=== PATIENT | female | born 1990 | race Caucasian/White ===

== ENCOUNTER 2023-06-19 19:19 | Emergency (ER) | payer MEDICAID, SELFPAY ==
[2023-06-19 19:28] VITALS: BP 120/84; PULSE 80; RESP 16; TEMP 36.8; O2SAT 98; BMI 30.8
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
[2023-06-19] MEDS: IBUPROFEN 400 MG TABLET 800 MG PO (20:17)
== END 2023-06-19 20:35 | disposition home or self-care (01) ==
PROVIDERS: Emergency Provider Emergency Medicine; PCP Family Medicine
DX: S39.012A Strain of muscle, fascia and tendon of lower back, initial encounter (principal); S39.011A Strain of muscle, fascia and tendon of abdomen, initial encounter; V43.52XA Car driver injured in collision with other type car in traffic accident, initial encounter; Z87.891 Personal history of nicotine dependence
CPT/HCPCS: 72100; 99283

== ENCOUNTER 2024-02-05 16:46 | Emergency (ER) | payer MEDICAID, SELFPAY ==
[2024-02-05 16:52] VITALS: BP 124/86; PULSE 82; TEMP 36.9; O2SAT 98; BMI 33.0
--- OUTSIDE RECORDS SUMMARY | 2024-02-05 16:52 | XMS_ITS | CCD ---
Author Organization [facility] Care Team Providers Care Substance Abuse Clinician Name Role Phone Gabino Prieto Primary Care Provider Unavaila willy GONZALES, DR PAIZ Admitting Unavailable GONZÁLEZ, DR PAIZ Attending Unavailable MAGDALENO, DR Stoney JAY Primary Care Unavailable GONZÁLEZ, DR PAIZ Consulting Unavailable AGUBOSISHILA Whitehead Consulting Unavailable SERENE MARTINO Consulting Unavailable ARTIE LI Consulting Unavailable MELISSA JONES Attending Unavailable MELISSA JONES Admitting Unavailable MAGDALENO, DR Stoney JAY Primary Care Unavailable ALEXIS, DR MALICK Rain Consulting Unavailable MELISSA JONES Consulting Unavailable GONZÁLEZ, DR PAIZ Consulting Unavailable GONZÁLEZ, DR PAIZ Admitting Unavailable KAHSAN, DR Stoney JAY Primary Care Unavailable GONZÁLEZ, DR PAIZ Attending Unavailable GONZÁLEZ, DR PAIZ Admitting Unavailable GONZÁLEZ, DR PAIZ Attending Unavailable KASHAN, DR Stoney JAY Primary Care Unavailable GONZÁLEZ, DR PAIZ Consulting Unavailable ALEXIS, DR MALICK Rain Consulting Unavailable GONZÁLEZ, DR PAIZ Admitting Unavailable GONZÁLEZ, DR PAIZ Attending Unavailable MAGDALENO, DR Stoney JAY Primary Care Unavailable GONZÁLEZ, DR PAIZ Consulting Unavailable ALEXIS, DR MALICK Rain Consulting Unavailable EFREN, DR BLACK Consulting Unavailable NOEMI MORGAN Attending Unavailable NOEMI MORGAN Admitting Unavailable MAGDALENO, DR Stoney JAY Primary Care Unavailable ISHMAEL BAINS Consulting Unavailable GONZÁLEZ, DR PAIZ Attending Unavailable GONZÁLEZ, DR PAIZ Admitting Unavailable CORTNEY MAZARIEGOS Consulting Unavailable MAGDALENO, DR Stoney JAY Primary Care Unavailable GONZÁLEZ, DR PAIZ Admitting Unavailable GONZÁLEZ, DR PAIZ Attending Unavailable MAGDALENO, DR Stoney JAY Primary Care Unavailable MAGDALENO, DR Stoney JAY Referring Unavailable GONZÁLEZ, DR PAIZ Consulting Unavailable TUNG SHIELDS Attending Unavailable Unavailable Unavailable Unavailable Allergies Allergy Classification Reported Allergen(s) Allergy Type Date of Onset Reaction(s) Facility (1 source) levoFLOXacin Drug Allergy [facility] (1 source) levoFLOXacin Drug Allergy 11-10-2012 [facility] Repository Medications Current Medications Medication Drug Class(es) Dates Sig (Normalized) Sig (Original) acetaminophen 325 mg / HYDROcodone bitartrate 5 mg oral tablet (2 sources) Opioid Agonist Start: 02-11-2019 End: 02-02-2024 take 1 tablet by mouth every four to six hours Hydrocodone-Acetam inophen Active 1 TAB Oral EVERY 4-6 HOURS 7 February 11, 2019 2:49pm naproxen 500 mg oral tablet (2 sources) Nonsteroidal Anti-inflammatory Drug Start: 02-11-2019 End: 02-02-2024 take 500 mg by mouth every twelve hours at mealtime Naproxen Active 500 MG Oral Q12H February 11, 2019 2:49pm administer with food or milk Nirmatrelvir-Ritonav ir (Paxlovid) 300 mg (150 mg x 2)-100 mg tablets,dose pack (2 sources) Start: 02-02-2024 Nirmatrelvir-Riton avir (Paxlovid) 300 mg (150 mg x 2)-100 mg tablets,dose pack Active 0 PO .COMPLEX February 02, 2024 12:00am take TWO 150 mg tablets of nirmatrelvir with ONE 100 mg tablet of ritonavir twice daily for 5 days PO Start: 02-02-2024 End: 02-02-2024 Nirmatrelvir-Ritonavir (Paxl ovid) 300 mg (150 mg x 2)-100 mg tablets,dose pack Discontinued 0 PO .COMPLEX February 02, 2024 12:00am February 02, 2024 6:58pm take TWO 150 mg tablets of nirmatrelvir with ONE 100 mg tablet of ritonavir twice daily for 5 days PO ondansetron 4 mg disintegrating oral tablet (2 sources) Serotonin-3 Receptor Antagonist Start: 02-11-2019 End: 02-02-2024 Ondansetron Active 4 MG Oral every 6 to 8 hours February 11, 2019 2:49pm tamsulosin hydrochloride 0.4 mg oral capsule (2 sources) alpha-Adrenergic Porsha Start: 02-11-2019 End: 02-02-2024 take 0.4 mg by mouth once daily Tamsulosin Active 0.4 MG Oral Daily February 11, 2019 2:49pm Problems Active Problems Problem Classification Problem Date Documented Date Episodic/Chronic Abdominal pain (2 sources) Pelvic and perineal pain; Translations: [Unspecified abdominal pain] Onset: 08-25-2021 Episodic Calculus of urinary tract (3 sources) Ureteric stone; Translations: [Kidney stone] 02-02-2024 Episodic Immunizations and screening for infectious disease (2 sources) Encounter for screening for human papillomavirus (HPV); Translations: [Contact with or exposure to other viral diseases] Onset: 08-28-2021 02-02-2024 Episodic Menstrual disorders (5 sources) Excessive and frequent menstruation with regular cycle; Translations: [EXCESS FREQ MENSTRUATION W/REG CYCL] Onset: 10-07-2021 Chronic Other liver diseases (5 sources) Liver disease, unspecified; Translations: [LIVER DISEASE UNSPECIFIED] Onset: 08-30-2021 Chronic Other upper respiratory infections (3 sources) Pharyngitis; Translations: [Acute pharyngitis, unspecified] 05-05-2023 Episodic Unclassified (1 source) CONTACT W/AND (SUSP) EXPOS COVID-19; Translations: [CONTACT W/AND (SUSP) EXPOS COVID-19] Onset: 08-25-2021 Viral infection (2 sources) Disease caused by 2019-nCoV; Translations: [COVID-19] 02-02-2024 Episodic Past or Other Problems Problem Classification Problem Date Documented Date Episodic/Chronic Contraceptive and procreative management (1 source) Tubal ligation status; Translations: [TUBAL LIGATION STATUS] Onset: 10-14-2021 Episodic Nausea and vomiting (4 sources) Nausea with vomiting, unspecified; Translations: [NAUSEA WITH VOMITING UNSPECIFIED] Onset: 08-24-2021 Episodic Noninfectious gastroenteritis (1 source) Noninfective gastroenteritis and colitis, unspecified; Translations: [NONINFECTIVE GE AND COLITIS UNS] Onset: 08-25-2021 Episodic Other screening for suspected conditions (not mental disorders or infectious disease) (4 sources) Encounter for screening for malignant neoplasm of cervix; Translations: [ENC SCREENING MALIG NEOPLASM CERV] Onset: 08-25-2021 Episodic Residual codes; unclassified (1 source) Acquired absence of other specified parts of digestive tract; Translations: [ACQ ABSENCE OTH PART DIGESTV TRACT] Onset: 10-14-2021 Episodic Screening and history of mental health and substance abuse codes (1 source) Personal history of nicotine dependence; Translations: [PERSONAL HISTORY OF NICOTINE DEPEND] Onset: 10-14-2021 Episodic Results Test Name Value Interpretation Reference Range Facility No Panel InformationOrdered By: Hilaria Shell on 02-02-2024 Quick Strep (POC) [facility] CBC AUTO DIFFon 06-22-2022 BASO # 0.0 103/ul Normal 0.0-0.1 [facility] Comment on above: Performed By: #### C BC #### [facility] [address] [place] [address] Dr. Cain Mcwilliams Basophils/100 WBC (Bld) 0.4 % Normal 0.2-2.0 [facility] Comment on above: Performed By: #### C BC #### [facility] [address] [place] [address] Dr. Cain Mcwilliams EO # 0.1 103/ul Normal 0.0-0.7 [facility] Comment on above: Performed By: #### C BC #### [facility] [address] [place] [address] Dr. Cain Mcwilliams Eosinophils/100 WBC (Bld) 2.0 % Normal 0.9-7.0 [facility] Comment on above: Performed By: #### C BC #### [facility] [address] [place] [address] Dr. Cain Mcwilliams Erythrocyte distribution width (RBC) [Ratio] 12.8 % Normal 11.0-15.0 [facility] Comment on above: Performed By: #### C BC #### [facility] [address] [place] [address] Dr. Cain Mcwilliams Hematocrit (Bld) [Volume fraction] 40.6 % Normal 36.0-48.0 [facility] Comment on above: Performed By: #### C BC #### [facility] [address] [place] [address] Dr. Cain Mcwilliams Hemoglobin (Bld) [Mass/Vol] 14.1 g/dL Normal 12.0-16.0 [facility] Comment on above: Performed By: #### C BC #### [facility] [address] [place] [address] Dr. Cain Mcwilliams IG # 0.01 10e3/ul Normal 0.00-0.03 [facility] Comment on above: Performed By: #### C BC #### [facility] [address] [place] [address] Dr. Cain Mcwilliams IG % 0.2 % Normal 0.0-0.5 [facility] Comment on above: Performed By: #### C BC #### [facility] [address] [place] [address] Dr. Cain Mcwilliams LYMPH # 1.1 103/ul Critically low 1.2-3.8 [facility] Comment on above: Performed By: #### C BC #### [facility] [address] [place] [address] Dr. Cain Mcwilliams Lymphocytes/100 WBC (Bld) 24.6 % Normal 20.5-60.0 [facility] Comment on above: Performed By: #### C BC #### [facility] [address] [place] [address] Dr. Cain Mcwilliams MANUAL DIFF REQ NO Normal [facility] Comment on above: Performed By: #### C BC #### [facility] [address] [place] [address] Dr. Cain Mcwilliams MCH (RBC) [Entitic mass] 30.1 pg Normal 26.7-34.0 [facility] Comment on above: Performed By: #### C BC #### [facility] [address] [place] [address] Dr. Cain Mcwilliams MCHC (RBC) [Mass/Vol] 34.7 g/dL Normal 29.9-35.2 [facility] Comment on above: Performed By: #### C BC #### [facility] [address] [place] [address] Dr. Cain Mcwilliams MCV (RBC) [Entitic vol] 86.8 fL Normal 81.0-99.0 [facility] Comment on above: Performed By: #### C BC #### [facility] [address] [address] [address] Cain Mcwilliams MONO # 0.3 103/ul Normal 0.3-0.8 [facility] Comment on above: Performed By: #### C BC #### [facility] [address] [address] [address] Cain Mcwilliams Monocytes/100 WBC (Bld) 6.5 % Normal 1.7-12.0 [facility] Comment on above: Performed By: #### C BC #### [facility] [address] [address] [address] Cain Mcwilliams NEUT # 3.1 103/ul Normal 1.4-6.5 [facility] Comment on above: Performed By: #### C BC #### [facility] [address] [place] [address] Dr. Cain Mcwilliams Neutrophils/100 WBC (Bld) 66.3 % Normal 43.0-75.0 [facility] Comment on above: Performed By: #### C BC #### [facility] [address] [place] [address] Dr. Cain Mcwilliams Platelet mean volume (Bld) [Entitic vol] 10.9 fL Normal 9.5-13.5 [facility] Comment on above: Performed By: #### C BC #### [facility] [address] [place] [address] Dr. Cain Mcwilliams PLT 141 103/ul Critically low 150-450 [facility] Comment on above: Performed By: #### C BC #### [facility] [address] [place] [address] Dr. Cain Mcwilliams RBC 4.68 106/ul Normal 4.20-5.40 [facility] Comment on above: Performed By: #### C BC #### [facility] [address] [place] [address] Dr. Cain Mcwilliams WBC 4.6 103/ul Normal 4.0-11.0 [facility] Comment on above: Performed By: #### C BC #### [facility] [address] [place] [address] Dr. Cain Mcwilliams FREE T4on 06-22-2022 Free T4 [Mass/Vol] 0.99 ng/dL Normal 0.76-1.46 [facility] Comment on above: Performed By: #### F T4 #### [facility] [address] [place] [address] Dr. Cain Mcwilliams GLYCOHEMOGLOBIN A1Con 2022 ADA RECOMMENDATION SEE BELOW Normal [facility] Comment on above: Result Comment: ADA RECOMMENDED LIMIT 4.0 - 6.0 ADA THERAPEUTIC TARGET < 7.0 ACTION SUGGESTED > 7.0 Performed By: #### A 1C #### [facility] [address] [place] [address] Dr. Cain Mcwilliams Glucose [Mass/Vol] 97 mg/dL Normal [facility] Comment on above: Performed By: #### A 1C #### [facility] [address] [place] [address] Dr. Cain Mcwilliams HbA1c (Bld) [Mass fraction] 5.0 % Normal 4.5-6.2 [facility] Comment on above: Performed By: #### A 1C #### [facility] [address] [place] [address] Dr. Cain Mcwilliams PROTIMEon 06-22-2022 INR Coag (PPP) [Relative time] 0.95 {INR} Normal [facility] Comment on above: Performed By: #### C BC #### [facility] [address] [place] [address] Dr. Cain Mcwilliams INR GUIDELINES SEE BELOW Normal [facility] Comment on above: Result Comment: ABIODUN RED INR: 2.0 - 3.0 CONDITIONS NOT LISTED BELOW 2.5 - 3.5 FOR PROSTHETIC HEART VALVE REPLACEMENT 2.5 - 3.5 RECURRENT THROMBOSIS Performed By: #### C BC #### [facility] [address] [place] [address] Dr. Cain Mcwilliams PT Coag (PPP) [Time] 10.1 s Normal 9.0-11.6 [facility] Comment on above: Performed By: #### C BC #### [facility] [address] [place] [address] Dr. Cain Mcwilliams PTTon 06-22-2022 aPTT Coag (Bld) [Time] 29.4 s Normal 22.3-36.[address] [facility] Comment on above: Performed By: #### C BC #### [facility] [address] [place] [address] Dr. Cain Mcwilliams TSHon 06-22-2022 TSH 1.596 uIU/mL Normal 0.358-3.740 [facility] Comment on above: Performed By: #### T SH #### [facility] [address] [place] [address] Dr. Cain Mcwilliams US PELVIS AND TRANSVAGon US PELVIS AND TRANSVAG EXAMINATION: US PELVIS AND TRANSVAG HISTORY: Pelvic and perineal pain for 4 months COMPARISON: Ultrasound pelvis 08/30/2021 TECHNIQUE: Transabdominal and transvaginal sonographic examination. FINDINGS: UTERUS: Normal size and appearance. Uterus size: 9.1 x 6.8 x 4.5 cm ENDOMETRIUM: Normal homogeneous appearance. Endometrial thickness: 5 mm RIGHT OVARY: Normal size and appearance. Duplex Doppler demonstrates normal waveform and flow; resistive index 0.5. Ovary size: 2.0 x 2.0 x 3.3 cm LEFT OVARY: Normal size and appearance. Duplex Doppler demonstrates normal waveform and flow; resistive index 0.6. Ovary size: 2.2 x 2.1 x 2.4 cm CUL-DE-SAC: Trace amount of free fluid, likely physiologic. BLADDER: Unremarkable. OTHER: None. IMPRESSION: 1. Normal pelvic ultrasound. Electronically authenticated by: MALICK ESPINOZA Date: 2022-06-22 16:47 Normal [facility] CBC AUTO DIFFon 10-09-2021 BASO # 0.0 103/ul Normal 0.0-0.1 [facility] Comment on above: Performed By: #### C BC #### [facility] [address] [place] [address] Dr. Cain Mcwilliams Basophils/100 WBC (Bld) 0.4 % Normal 0.2-2.0 [facility] Comment on above: Performed By: #### C BC #### [facility] [address] [place] [address] Dr. Cain Mcwilliams EO # 0.0 103/ul Normal 0.0-0.7 [facility] Comment on above: Performed By: #### C BC #### [facility] [address] [place] [address] Dr. Cain Mcwilliams Eosinophils/100 WBC (Bld) 0.8 % Critically low 0.9-7.0 [facility] Comment on above: Performed By: #### C BC #### [facility] [address] [place] [address] Dr. Cain Mcwilliams Erythrocyte distribution width (RBC) [Ratio] 12.8 % Normal 11.0-15.0 [facility] Comment on above: Performed By: #### C BC #### [facility] [address] [place] [address] Dr. Cain Mcwilliams Hematocrit (Bld) [Volume fraction] 41.6 % Normal 36.0-48.0 [facility] Comment on above: Performed By: #### C BC #### [facility] [address] [place] [address] Dr. Cain Mcwililams Hemoglobin (Bld) [Mass/Vol] 13.8 g/dL Normal 12.0-16.0 [facility] Comment on above: Performed By: #### C BC #### [facility] [address] [place] [address] Dr. Cain Mcwilliams IG # 0.01 10e3/ul Normal 0.00-0.03 [facility] Comment on above: Performed By: #### C BC #### [facility] [address] [place] [address] Dr. Cain Mcwilliams IG % 0.2 % Normal 0.0-0.5 [facility] Comment on above: Performed By: #### C BC #### [facility] [address] [place] [address] Dr. Cain Mcwilliams LYMPH # 1.3 103/ul Normal 1.2-3.8 [facility] Comment on above: Performed By: #### C BC #### [facility] [address] [place] [address] Dr. Cain Mcwilliams Lymphocytes/100 WBC (Bld) 27.1 % Normal 20.5-60.0 [facility] Comment on above: Performed By: #### C BC #### [facility] [address] [place] [address] Dr. Cain Mcwilliams MANUAL DIFF REQ NO Normal [facility] Comment on above: Performed By: #### C BC #### [facility] [address] [place] [address] Dr. Cain Mcwilliams MCH (RBC) [Entitic mass] 30.5 pg Normal 26.7-34.0 [facility] Comment on above: Performed By: #### C BC #### [facility] [address] [place] [address] Dr. Cain Mcwilliams MCHC (RBC) [Mass/Vol] 33.2 g/dL Normal 29.9-35.2 [facility] Comment on above: Performed By: #### C BC #### [facility] [address] [place] [address] Dr. Cain Mcwilliams MCV (RBC) [Entitic vol] 91.8 fL Normal 81.0-99.0 [facility] Comment on above: Performed By: #### C BC #### [facility] [address] [place] [address] Dr. Cain Mcwilliams MONO # 0.3 103/ul Normal 0.3-0.8 [facility] Comment on above: Performed By: #### C BC #### [facility] [address] [place] [address] Dr. Cain Mcwilliams Monocytes/100 WBC (Bld) 6.3 % Normal 1.7-12.0 [facility] Comment on above: Performed By: #### C BC #### [facility] [address] [place] [address] Dr. Cain Mcwilliams NEUT # 3.1 103/ul Normal 1.4-6.5 [facility] Comment on above: Performed By: #### C BC #### [facility] [address] [place] [address] Dr. Cain Mcwilliams Neutrophils/100 WBC (Bld) 65.2 % Normal 43.0-75.0 [facility] Comment on above: Performed By: #### C BC #### [facility] [address] [place] [address] Dr. Cain Mcwilliams Platelet mean volume (Bld) [Entitic vol] 11.3 fL Normal 9.5-13.5 [facility] Comment on above: Performed By: #### C BC #### [facility] [address] [place] [address] Dr. Cain Mcwilliams PLT 149 103/ul Critically low 150-450 [facility] Comment on above: Performed By: #### C BC #### [facility] [address] [place] [address] Dr. Cain Mcwilliams RBC 4.53 106/ul Normal 4.20-5.40 [facility] Comment on above: Performed By: #### C BC #### [facility] [address] [place] [address] Dr. Cain Mcwilliams WBC 4.8 103/ul Normal 4.0-11.0 [facility] Comment on above: Performed By: #### C BC #### [facility] [address] [place] [address] Dr. Cain Mcwilliams PREG QUANT HCGon 10-09-2021 HCG QUANT <1 Normal [facility] Comment on above: Performed By: #### C BC #### [facility] [address] [place] [address] Dr. Cain Mcwilliams HCG RANGE SEE BELOW Normal [facility] Comment on above: Result Comment: 5-50 0-1 WEEK 40-300 1-2 WEEKS 100-1,000 2-3 WEEKS 500-6,000 3-4 WEEKS 5,000-200,000 1-2 MONTHS 10,000-100,000 2-3 MONTHS 3,000-50,000 2ND TRIMESTER 1,000-50,000 3RD TRIMESTER Performed By: #### C BC #### [facility] [address] [place] [address] Dr. Cain Mcwilliams PAP ACOG PANEL 2: 30 to 65on 09-02-2021 . . Normal [facility] Comment on above: Result Comment: Perf ormed at: WB Performed By: #### C BC #### [facility] [address] [place] [address] Dr. Cain Mcwilliams Age Gdln ACOG Testing 30-65 Normal [facility] Comment on above: Performed By: #### C BC #### [facility] [address] [address] [address] Cain Mcwilliams DIAGNOSIS: Comment [facility] Comment on above: Result Comment: NEGA TIVE FOR INTRAEPITHELIAL LESION OR MALIGNANCY. THIS SPECIMEN WAS RESCREENED PART OF OUR [employer] PROGRAM. Performed at: WB Performed By: #### C BC #### [facility] [address] [place] [address] Dr. Cain Mcwilliams HPV Aptima Negative Normal Negative [facility] Comment on above: Result Comment: This nucleic acid amplification test detects fourteen high-risk HPV types (16,18,31,33,35,39,45,51,52,56,58,59,66,68) without differentiation. Performed at: =G Performed By: #### C BC #### [facility] [address] [place] [address] Dr. Cain Mcwilliams Methodology: Comment Normal [facility] Comment on above: Result Comment: This liquid based ThinPrep(R) pap test was screened with the use of an image guided system. Performed at: WB Performed By: #### C BC #### [facility] [address] [place] [address] Dr. Cain Mcwilliams Note: Comment [facility] Comment on above: Result Comment: The Pap smear is a screening test designed to aid in the detection of premalignant and malignant conditions of the uterine cervix. It is not a diagnostic procedure and should not be used as the sole means of detecting cervical cancer. Both false-positive and false-negative reports do occur. . Performed at: WB Performed By: #### C BC #### [facility] [address] [place] [address] Dr. Cain Mcwilliams Performed by: Comment Normal [facility] Comment on above: Result Comment: Martha Odonnell, Crystallizer Operator (ASCP) Performed at: WB Performed By: #### C BC #### [facility] [address] [address] [address] Cain Mcwilliams QC reviewed by: Comment Normal [facility] Comment on above: Result Comment: Steven Silver, Supervisory Crystallizer Operator (ASCP) Performed at: WB Performed By: #### C BC #### [facility] [address] [place], [place] [address] Dr. Cain Mcwilliams Specimen adequacy: Comment Normal [facility] System Comment on above: Result Comment: Sati sfactory for evaluation. Endocervical and/or squamous metaplastic cells (endocervical component) are present. Performed at: [facility] Performed By: #### C BC #### [facility] [address] [place], [place] [address] Dr. Cain Mcwilliams US PELVIS AND TRANSVAGon US PELVIS AND TRANSVAG EXAMINATION: US PELVIS AND TRANSVAG HISTORY: Excessive and frequent menstruation ; bilateral lower pelvic pain COMPARISON: No relevant comparison available. TECHNIQUE: Transabdominal and transvaginal sonographic examination. FINDINGS: UTERUS: Normal size and appearance. Uterus size: 9.3 x 5.1 x 4.5 cm ENDOMETRIUM: Normal homogeneous appearance. Endometrial thickness: 8 mm RIGHT OVARY: Normal size and appearance. Duplex Doppler demonstrates normal waveform and flow; resistive index 0.51. Ovary size: 3.7 x 3.1 x 1.9 cm LEFT OVARY: Normal size and appearance. Duplex Doppler demonstrates normal waveform and flow; resistive index 0.54. Ovary size: 3.5 x 2.1 x 2.6 cm CUL-DE-SAC: Unremarkable. No significant free fluid. BLADDER: Unremarkable. OTHER: None. IMPRESSION: 1. Normal pelvic ultrasound. Electronically authenticated by: MALICK ESPINOZA Date: 2021-08-30 10:29 Normal [facility] US SINGLE QUAD RT UPPERon US SINGLE QUAD RT UPPER EXAMINATION: US SINGLE QUAD RT UPPER HISTORY: Disease of liver COMPARISON: CT abdomen pelvis 08/24/2021 TECHNIQUE: Transabdominal evaluation of the right upper quadrant. FINDINGS: LIVER: 1.5 cm geographic shaped slightly hyperechoic area within right hepatic lobe corresponding to CT findings and favoring a benign hemangioma. PORTAL VEIN: Duplex Doppler demonstrates normal hepatopetal flow pattern with flow velocity averaging 33 cm/s. GALLBLADDER: No visible gallstones, wall thickening, or pericholecystic free fluid. Negative sonographic Noel's sign. BILIARY: No abnormal dilation or stones. Common bile duct diameter is within normal limits. PANCREASE: No visible mass, abnormal atrophy, or duct dilation. KIDNEY: No hydronephrosis. No visible mass or stones. Size: 9.8 x 6.8 x 4.1 cm IMPRESSION: 1. Small right hepatic lobe lesion favoring a benign hemangioma. 2. No suspicious findings. Electronically authenticated by: MALICK ESPINOZA Date: 2021-08-30 10:31 Normal [facility] CBC W MANUAL DIFFon 08-25-19 22 ATYPICAL LYMPH # Normal [facility] Comment on above: Performed By: #### C BCISMAEL #### [facility] [address] [place] [address] Dr. Cain Mcwilliams ATYPICAL LYMPH % Normal [facility] Comment on above: Performed By: #### C BCISMAEL #### [facility] [address] [place] [address] Dr. Cain Mcwilliams BAND # 0.2 103/ul Normal 0.0-0.3 [facility] Comment on above: Performed By: #### C BCISMAEL #### [facility] [address] [place] [address] Dr. Cain Mcwilliams BAND % 3 % Normal 0-5 [facility] Comment on above: Performed By: #### C BCMAN #### [facility] [address] [place] [address] Dr. Cain Mcwilliams BASOM # 0.00 103/ul Normal 0.00-0.10 [facility] Comment on above: Performed By: #### C BCMAN #### [facility] [address] [place] [address] Dr. Cain Mcwilliams BASOM % 0.0 % Critically low 0.2-2.0 [facility] Comment on above: Performed By: #### C BCISMAEL #### [facility] [address] [place] [address] Dr. Cain Mcwilliams BLAST # Normal [facility] Comment on above: Performed By: #### C BCMAN #### [facility] [address] [place] [address] Dr. Cain Mcwilliams BLAST % Normal [facility] Comment on above: Performed By: #### C BCISMAEL #### [facility] [address] [place] [address] Dr. Cain Mcwilliams CORRECTED WBC Normal 4.0-11.0 [facility] Comment on above: Performed By: #### C BCISMAEL #### [facility] [address] [place] [address] Dr. Cain Mcwilliams EOS # 0.00 103/ul Normal 0.00-0.70 [facility] Comment on above: Performed By: #### C BCISMAEL #### [facility] [address] [place] [address] Dr. Cain Mcwilliams EOS% 0.0 % Critically low 0.9-7.0 [facility] Comment on above: Performed By: #### C BCISMAEL #### [facility] [address] [place] [address] Dr. Cain Mcwilliams HCT 44.2 % Normal 36.0-48.0 [facility] Comment on above: Performed By: #### C BCISMAEL #### [facility] [address] [place] [address] Dr. Cain Mcwilliams HGB 14.6 g/dl Normal 12.0-16.0 [facility] Comment on above: Performed By: #### C BCISMAEL #### [facility] [address] [place] [address] Dr. Cain Mcwilliams LYMPHM # 0.34 103/ul Critically low 1.20-3.[address] [facility] Comment on above: Performed By: #### C BCISMAEL #### [facility] [address] [place] [address] Dr. Cian Mcwilliams LYMPHM% 5.0 % Critically low 20.5-60.0 [facility] Comment on above: Performed By: #### C RAY #### [facility] [address] [place] [address] [address] Cain Mcwilliams MCH 30.0 pg Normal 26.7-34.0 [facility] Comment on above: Performed By: #### C RAY #### [facility] [address] [place] [address] Dr. Cain Mcwilliams MCHC 33.0 g/dl Normal 29.9-35.2 [facility] Comment on above: Performed By: #### C RAY #### [facility] [address] [place] [address] Dr. Cain Mcwilliams MCV 90.9 fL Normal 81.0-99.0 [facility] Comment on above: Performed By: #### C RAY #### [facility] [address] [place] [address] Dr. Cain Mcwilliams METAMYELOCYTE # Normal [facility] Comment on above: Performed By: #### C RAY #### [facility] [address] [place] [address] Dr. Cain Mcwilliams METAMYELOCYTE % Normal [facility] Comment on above: Performed By: #### C RAY #### [facility] [address] [place] [address] Dr. Cain Mcwilliams MONOM# 0.21 103/ul Critically low 0.30-0.80 [facility] Comment on above: Performed By: #### Delia BELL #### [facility] [address] [place] [address] Dr. Cain Mcwilliams MONOM% 3.0 % Normal 1.7-12.0 [facility] Comment on above: Performed By: #### C RAY #### [facility] [address] [place] [address] Dr. Cain Mcwilliams MPV 11.3 fL Normal 9.5-13.5 [facility] Comment on above: Performed By: #### C RAY #### [facility] [address] [place] [address] Dr. Cain Mcwilliams MYELOCYTE # Normal [facility] Comment on above: Performed By: #### C RAY #### [facility] [address] [place] [address] [address] Cain Mcwilliams MYELOCYTE % Normal [facility] Comment on above: Performed By: #### C RAY #### [facility] [address] [place] [address] [address] Cain Mcwilliams NRBC Normal [facility] Comment on above: Performed By: #### C RAY #### [facility] [address] [place] [address] Dr. Cain Mcwilliams PLT 153 103/ul Normal 150-450 [facility] Comment on above: Performed By: #### C RAY #### [facility] [address] [place] [address] Dr. Cain Mcwilliams RBC 4.86 106/ul Normal 4.20-5.40 [facility] Comment on above: Performed By: #### C RAY #### [facility] [address] [place] [address] Dr. Cain Mcwilliams RDW 12.5 % Normal 11.0-15.0 [facility] Comment on above: Performed By: #### C RAY #### [facility] [address] [place] [address] Dr. Cain Mcwilliams SEG # 6.14 103/ul Normal 1.40-6.50 [facility] Comment on above: Performed By: #### C RAY #### [facility] [address] [place] [address] Dr. Cain Mcwilliams SEG % 89.0 % Critically high 43.0-75.[address] [facility] Comment on above: Performed By: #### C RAY #### [facility] [address] [place] [address] Dr. Cain Mcwilliams WBC 6.9 103/ul Normal 4.0-11.0 [facility] Comment on above: Performed By: #### C RAY #### [facility] [address] [place] [address] ABD/PELV W Freddie 08-25-[address] ABD/PELV W CON EXAMINATION: CT ABD/PELV W CON HISTORY: Abdominal pain COMPARISON: CT abdomen/pelvis dated 05/26/2015. TECHNIQUE: Images of Multiple axial images of the abdomen and pelvis are obtained following the administration of IV contrast material. Coronal and sagittal reformatted sequences are submitted for review. Dose reduction techniques were achieved by using automated exposure control and/or adjustment of mA and/or kV according to patient size and/or use of iterative reconstruction technique. FINDINGS: The lung bases are clear. Heart size is normal. Patient is post cholecystectomy. Surgical clips are seen in the gallbladder fossa. A 12 mm low-density seen in the right hepatic lobe, which does not have an obvious simple cystic appearance. A liver ultrasound versus liver MRI with and without contrast is suggested for better evaluation. The spleen, pancreas and bilateral adrenal glands appear unremarkable. Bilateral kidneys demonstrate normal size, morphology and contrast enhancement. There is no evidence for hydronephrosis bilaterally. The stomach and duodenum appear unremarkable. Nonobstructive bowel pattern is seen. The appendix is not identified. No abnormal pericecal inflammatory changes are seen. Mild wall thickening of the small bowel is seen. Very mild wall thickening of the ascending and transverse colon is also seen. Small air-fluid levels are seen within nondistended loops of small bowel. Fluid feces with air-fluid levels are also seen in the ascending and transverse colon. The urinary bladder appears unremarkable. No significant free fluid or abnormal fluid collection is seen in the abdomen and pelvis. The vascular structures demonstrate normal caliber and contrast enhancement. The abdominal wall and visualized soft tissues appear unremarkable. No acute osseous abnormality is seen. IMPRESSION: Mild wall thickening of the small bowel as well as of the ascending and transverse colon, suggestive of mild enterocolitis. A 12 mm low-density seen in the right hepatic lobe, which does not have an obvious simple cystic appearance. A liver ultrasound versus liver MRI with and without contrast is suggested for better evaluation. Electronically authenticated by: ISHMAEL BAINS Date: 2021-08-24 17:39 Normal [facility] CULTURE BLOODon 08-24-2021 Microscopic examination of blood, culture Culture Observations: No growth at 5 days. Normal [facility] Comment on above: Performed By: #### C BC #### [facility] [address] [place] [address] Dr. Cain Mcwilliams Microscopic examination of blood, culture Culture Observations: No growth at 5 days Normal [facility] Comment on above: Performed By: #### C BC #### [facility] [address] [place] [address] Dr. Cain Mcwilliams Covid-19 PCR (CVDTB)on SARS-CoV-2 (COVID-19) RNA DANIELLE+probe Ql (Unsp spec) Not detected Normal NOT DETECTED [facility] Comment on above: Result Comment: When diagnostic testing is negative, the possibility of a false negative should be considered in the context of a patient's recent exposures and the presence of clinical signs and symptoms consistent with SARS-CoV-2. This test is not yet approved or cleared by the [place] FDA. When there are no FDA-approved or cleared tests available, and other criteria are met, FDA can make tests available under an emergency access mechanism called an Emergency Use Authorization (EUA). The EUA for this test is supported by the Director Payment of Health and Human Service's declaration that circumstances exist to justify the emergency use of in vitro diagnostics for the detection and/or diagnosis of the virus that causes COVID-19. This EUA will remain in effect for the duration of the COVID-19 declaration justifying emergency of IVDs, unless it is terminated or revoked by the FDA (after which the test may no longer be used). Performed By: #### C VDTB #### [facility] [address] [place] [address] Dr. Cain Mcwilliams ER URINE PROFILEon 2 Bilirubin Ql (U) Negative Normal NEGATIVE [facility] Comment on above: Performed By: #### C BC #### [facility] [address] [place] [address] Dr. Cain Mcwilliams Clarity (U) SL CLOUDY Abnormal CLEAR [facility] Comment on above: Performed By: #### C BC #### [facility] [address] [place] [address] Dr. Cain Mcwilliams Color (U) YELLOW Normal YELLOW [facility] Comment on above: Performed By: #### C BC #### [facility] [address] [place] [address] Dr. Cain MANE A micrscopic examination will be performed if indicated. Normal [facility] Comment on above: Performed By: #### C BC #### [facility] [address] [place] [address] Dr. Cain Mcwilliams Glucose Ql (U) Negative Normal NEGATIVE [facility] Comment on above: Performed By: #### C BC #### [facility] [address] [place] [address] Dr. Cain Mcwilliams Hemoglobin Ql (U) Negative Normal NEGATIVE [facility] Comment on above: Performed By: #### C BC #### [facility] [address] [place] [address] Dr. Cain Mcwilliams Ketones Ql (U) Negative Normal NEGATIVE [facility] Comment on above: Performed By: #### C BC #### [facility] [address] [place] [address] Dr. Cain Mcwilliams LEUKOCYTES Negative Normal NEGATIVE [facility] Comment on above: Performed By: #### C BC #### [facility] [address] [place] [address] Dr. Cain Mcwilliams Nitrite Ql (U) Negative Normal NEGATIVE [facility] Comment on above: Performed By: #### C BC #### [facility] [address] [place] [address] Dr. Cain Mcwilliams pH (U) 5.5 [pH] Normal 5-9 [facility] Comment on above: Performed By: #### C BC #### [facility] [address] [place] [address] Dr. Cain Mcwilliams SPEC GRAVITY 1.025 Normal 1.005-<=1.025 [facility] Comment on above: Performed By: #### C BC #### [facility] [address] [place] [address] Dr. Cain Mcwilliams UA PROTEIN Negative Normal NEGATIVE/ TRACE [facility] Comment on above: Performed By: #### C BC #### [facility] [address] [place] [address] Dr. Cain Mcwilliams UR MICRO IND NOT INDICATED Normal [facility] Comment on above: Performed By: #### C BC #### [facility] [address] [place] [address] Dr. Cain Mcwilliams Urobilinogen Qn (U) 0.2 {Claire'U}/dL Normal 0.2 - 1. 0 [facility] Comment on above: Performed By: #### C BC #### [facility] [address] [place] [address] Dr. Cain Mcwilliams LACTATE/LACTIC ACIDon 2021 Lactate [Moles/Vol] 2.1 mmol/L Critically high 0.7-2.0 [facility] Comment on above: Performed By: #### L ACT #### [facility] [address] [place] [address] Dr. Cain Mcwilliams LIPASEon 08-24-2021 Lipase [Catalytic activity/Vol] 102.0 U/L Normal 23.0-300.0 [facility] Comment on above: Performed By: #### C BENEDICTO, LIPA #### [facility] [address] [place] [address] Dr. Cain Mcwilliams PREG HCG QUALon 08-24-2021 , QUAL Negative Normal NEGATIVE [facility] Comment on above: Performed By: #### C BC #### [facility] [address] [place] [address] Dr. Cain Mcwilliams PROF 14(COMP METB)on 022 Albumin [Mass/Vol] 3.7 g/dL Normal 3.4-5.0 [facility] Comment on above: Performed By: #### C MP, LIPA #### [facility] [address] [place] [address] Dr. Cain Mcwilliams Albumin/Globulin [Mass ratio] 1.1 {ratio} Normal [facility] Comment on above: Performed By: #### C MP, LIPA #### [facility] [address] [place] [address] Dr. Cain Mcwilliams ALP [Catalytic activity/Vol] 103 U/L Normal 46-116 [facility] Comment on above: Performed By: #### C MP, LIPA #### [facility] [address] [place] [address] Dr. Cain Mcwilliams ALT [Catalytic activity/Vol] 18 U/L Normal 14-59 [facility] Comment on above: Performed By: #### C MP, LIPA #### [facility] [address] [place] [address] Dr. Cain Mcwilliams Anion gap [Moles/Vol] 15.3 mmol/L Normal [facility] Comment on above: Performed By: #### C MP, LIPA #### [facility] [address] [place] [address] Dr. Cain Mcwilliams AST [Catalytic activity/Vol] 13 U/L Critically low 15-37 [facility] Comment on above: Performed By: #### C MP, LIPA #### [facility] [address] [place] [address] Dr. Cain Mcwilliams Bilirubin [Mass/Vol] 0.7 mg/dL Normal 0.2-1.3 [facility] Comment on above: Performed By: #### C MP, LIPA #### [facility] [address] [place] [address] Dr. Cain Mcwilliams Calcium [Mass/Vol] 8.3 mg/dL Critically low 8.5-10.[address] [facility] Comment on above: Performed By: #### C MP, LIPA #### [facility] [address] [place] [address] Dr. Cain Mcwilliams Chloride [Moles/Vol] 102 mmol/L Normal 98-107 [facility] Comment on above: Performed By: #### C MP, LIPA #### [facility] [address] [place] [address] Dr. Cain Mcwilliams CO2 [Moles/Vol] 22.2 mmol/L Normal 22.0-30.0 [facility] Comment on above: Performed By: #### C MP, LIPA #### [facility] [address] [place] [address] Dr. Cain Mcwilliams Creatinine [Mass/Vol] 0.93 mg/dL Normal 0.52-1.04 [facility] Comment on above: Performed By: #### C MP, LIPA #### [facility] [address] [place] [address] [address] Cain Mcwilliams EGFR-AF EMIRATI >60 Normal >=60 [facility] Comment on above: Performed By: #### C MP, LIPA #### [facility] [address] [place] [address] [address] Cain Mcwilliams EGFR-NON AF EMIRATI >60 Normal >=60 [facility] Comment on above: Performed By: #### C MP, LIPA #### [facility] [address] [place] [address] [address] Cain Mcwilliams Globulin (S) [Mass/Vol] 3.5 g/dL Normal [facility] Comment on above: Performed By: #### C MP, LIPA #### [facility] [address] [place] [address] Dr. Cain Mcwilliams Glucose [Mass/Vol] 108 mg/dL Critically high 74-106 [facility] Comment on above: Performed By: #### C MP, LIPA #### [facility] [address] [place] [address] Dr. Cain Mcwilliams Potassium [Moles/Vol] 3.5 mmol/L Normal 3.4-5.0 [facility] Comment on above: Performed By: #### C MP, LIPA #### [facility] [address] [place] [address] Dr. Cain Mcwilliams Protein [Mass/Vol] 7.2 g/dL Normal 6.1-8.2 [facility] Comment on above: Performed By: #### C MP, LIPA #### [facility] [address] [place] [address] [address] Cain Mcwilliams Sodium [Moles/Vol] 136 mmol/L Critically low 137-[address] [facility] Comment on above: Performed By: #### C MP, LIPA #### [facility] [address] [place] [address] Dr. Cain Mcwilliams Urea nitrogen [Mass/Vol] 11.0 mg/dL Normal 7.0-18.0 [facility] Comment on above: Performed By: #### C MP, LIPA #### [facility] [address] [place], [place] [address] Dr. Cain Mcwilliams Urea nitrogen/Creatinine [Mass ratio] 11.8 mg/mg Normal [facility] Comment on above: Performed By: #### C MP, LIPA #### [facility] [address] [place], [place] [address] Dr. Cain Mcwilliams Automated basophil %on 02-11 Basophils/100 WBC (Bld) 0.4 % [facility] Automated basophil counton 0 02-11-2019 Basophils (Bld) [#/Vol] 0.0 10*3/uL 0.0-0.2 [facility] Automated blood lymphocyte c ount (number/volume)on 02-11-2019 Lymphocytes (Bld) [#/Vol] 0.8 10*3/uL 1.00-4.8 [facility] Automated blood lymphocyte c ount as percentage of total leukocyteson 02-11-2019 Lymphocytes/100 WBC (Bld) 21.0 % [facility] Automated blood monocyte cou nton 02-11-2019 Monocytes (Bld) [#/Vol] 0.2 10*3/uL 0.0-0.8 [facility] Automated blood platelet cou nt (count/volume)on 02-11-2019 Platelets (Bld) [#/Vol] 141 10*3/uL 150-450 [facility] Automated blood platelet lyn n volume measurementon 02-11-2019 Platelet mean volume (Bld) [Entitic vol] 9.4 fL 6.3-10.7 [facility] Automated eosinophil %on Eosinophils/100 WBC (Bld) 1.1 % [facility] Automated eosinophil counton 02-11-2019 Eosinophils (Bld) [#/Vol] 0.0 10*3/uL 0.0-0.45 [facility] Automated erythrocyte distri bution width ratioon 02-11-2019 Erythrocyte distribution width (RBC) [Ratio] 12.4 % 11.9-15.3 [facility] [facility] Automated erythrocyte mean c orpuscular hemoglobin (mass per erythrocyte)on 02-11-2019 MCH (RBC) [Entitic mass] 30.3 pg 24.7-34.3 [facility] Automated erythrocyte mean c orpuscular hemoglobin concentration measurement (mass/volon 02-11-2019 MCHC (RBC) [Mass/Vol] 33.8 g/dL 32.0-35.0 [facility] Automated erythrocyte mean c orpuscular volumeon 02-11-2019 MCV (RBC) [Entitic vol] 89.6 fL 80-100 [facility] Automated erythrocytes count in urine sediment (number/area)on 02-11-2019 RBC Auto (Urine sed) [#/Area] 10-19 [HPF] [facility] Automated leukocytes count i n urine sediment (number/area)on 02-11-2019 WBC Auto (Urine sed) [#/Area] 3-4 [HPF] [facility] Automated monocyte %on 02-11 Monocytes/100 WBC (Bld) 5.6 % [facility] Automated neutrophil %on Neutrophils/100 WBC (Bld) 71.9 % [facility] Automated urine color determ inationon 02-11-2019 Color (U) Yellow Yellow [facility] Blood erythrocytes automated count (number/volume)on 02-11-2019 RBC (Bld) [#/Vol] 4.66 10*6/uL 3.60-5.00 [facility] Blood hemoglobin measurement (mass/volume)on 02-11-2019 Hemoglobin (Bld) [Mass/Vol] 14.1 g/dL 11.8-15.4 [facility] Blood leukocytes automated c ount (number/volume)on 02-11-2019 WBC (Bld) [#/Vol] 3.8 10*3/uL 3.8-11.6 [facility] Blood neutrophil count by au tomated method (number/volume)on 02-11-2019 Neutrophils (Bld) [#/Vol] 2.7 10*3/uL 1.8-7.7 [facility] Estimated glomerular filtrat ion rate (GFR) non- Americanon 02-11-2019 GFR/1.73 sq M predicted among non-blacks MDRD (S/P/Bld) [Vol rate/Area] mL/min/{1.73_m2} [facility] Hematocrit [Volume Fraction] of Blood by Automated counton 02-11-2019 Hematocrit (Bld) [Volume fraction] 41.7 % 34.0-46.4 [facility] Otheron 02-11-2019 GFR/1.73 sq M.predicted MDRD (S/P/Bld) [Vol rate/Area] mL/min/{1.73_m2} [facility] Comment on above: GFR estimated refere nce range: According to KDOQI guidelines, <60 ml/min/1.73m2 is sufficient to diagnose a patient with chronic kidney disease. Nucleated RBC/100 WBC (Bld) [Ratio] 0.1 % 0-0.5 [facility] Creatinine Clearance (Chem [id number] [facility] Serum or plasma calcium kevin urement (mass/volume)on 02-11-2019 Calcium [Mass/Vol] 9.5 mg/dL 8.2-10.2 [facility] Serum or plasma chloride lyn surement (moles/volume)on 02-11-2019 Chloride [Moles/Vol] 107 mmol/L 95-114 [facility] Serum or plasma creatinine m easurement with calculation of estimated glomerular filtron 02-11-2019 Creatinine [Mass/Vol] 0.86 mg/dL 0.44-1.03 [facility] Serum or plasma glucose kevin urement (mass/volume)on 02-11-2019 Glucose [Mass/Vol] 103 mg/dL 70-100 [facility] Comment on above: ADA recommended refe rence rangeRandom Glucose Reference Range is dependent on time and content of last meal. Glucose of more than 200 mg/dL in a nonstressed, ambulatory subject supports the diagnosis of Diabetes Mellitus. Serum or plasma potassium me asurement (moles/volume)on 02-11-2019 Potassium [Moles/Vol] 3.9 mmol/L 3.5-5.1 [facility] Serum or plasma sodium measu rement (moles/volume)on 02-11-2019 Sodium [Moles/Vol] 139 mmol/L 136-146 [facility] Serum or plasma total carbon dioxide measurement (moles/volume)on 02-11-2019 CO2 [Moles/Vol] 24.6 mmol/L 22.0-30.0 [facility] Serum or plasma urea nitroge n measurement (mass/volume)on 02-11-2019 Urea nitrogen [Mass/Vol] 8 mg/dL 02-13 [facility] Specific gravity of Urine by Automated test stripon 02-11-2019 Specific gravity (U) [Rel density] 1.021 1.001-1.030 [facility] Squamous epithelial cells de tection in urine sediment by light microscopyon 02-11-2019 Epithelial cells.squamous LM Ql (Urine sed) 5-9 [HPF] [facility] Urinalysison 02-11-2019 Hyaline casts LM Ql (Urine sed) 0-8 [LPF] [facility] Urine bacteria detection by automated methodon 02-11-2019 Bacteria Auto Ql (U) None seen None Seen [facility] Urine clarity by refractomet ry automatedon 02-11-2019 Clarity Refractometry automated (U) Clear Clear [facility] Urine glucose measurement by automated test strip (mass/volume)on 02-11-2019 Glucose Auto test strip (U) [Mass/Vol] Normal mg/dL Normal [facility] Urine hemoglobin detection b y automated test stripon 02-11-2019 Hemoglobin Auto test strip Ql (U) 2+ Negative [facility] Urine human chorionic gonado tropin (hCG) detection by immunoassayon 02-11-2019 HCG ( test) Ql (U) Negative Negative [facility] Urine ketones measurement by automated test strip (mass/volume)on 02-11-2019 Ketones (U) [Mass/Vol] Negative Negative [facility] Urine leukocyte esterase det ection by automated test stripon 02-11-2019 Leukocyte esterase Auto test strip Ql (U) Negative Negative [facility] Urine nitrite detection by t est stripon 02-11-2019 Nitrite Ql (U) Negative Negative [facility] Urine pH measurement by auto mated test stripon 02-11-2019 pH (U) 5.0 [pH] 5.0-9.0 [facility] Urine protein measurement by automated test strip (mass/volume)on 02-11-2019 Protein (U) [Mass/Vol] Negative Negative [facility] Urine total bilirubin detect ion by test stripon 02-11-2019 Bilirubin Ql (U) Negative Negative [facility] Urine urobilinogen measureme nt by automated test strip (mass/volume)on 02-11-2019 Urobilinogen (U) [Mass/Vol] Normal mg/dL Normal [facility] Vital Signs Date Time Vital Sign Value Performing Clinician Faci lity 02-02-2024 18:37-0400 Body height 165.1 cm [facility] 02-02-2024 18:37-0400 Body mass index (BMI) [Ratio] 38.2 kg/m2 [facility] 02-02-2024 18:37-0400 Body temperature 98.7 [degF] [facility] 02-02-2024 18:37-0400 Body weight 104.32 kg [facility] 02-02-2024 18:37-0400 Diastolic blood pressure 67 mm[Hg] [facility] 02-02-2024 18:37-0400 Heart rate 85 /min [facility] 02-02-2024 18:37-0400 Respiratory rate 18 /min [facility] 02-02-2024 18:37-0400 SaO2% (BldA) [Mass fraction] 98 % [facility] 02-02-2024 18:37-0400 Systolic blood pressure 112 mm[Hg] [facility] 02-11-2019 13:45-0400 BP Diastolic 61 mm[Hg] [facility] 02-11-2019 13:45-0400 BP Systolic 105 mm[Hg] [facility] 02-11-2019 13:45-0400 Pulse (Heart Rate) 74 /min [facility] 02-11-2019 13:45-0400 Pulse Oximetry 100 % [facility] 02-11-2019 13:45-0400 Respiratory Rate 19 /min Gabino [facility] 02-11-2019 11:03-0400 BMI (Body Mass Index) 25.7 kg/m2 Gabino [facility] 02-11-2019 11:03-0400 Body Temperature 97.7 [degF] [facility] 02-11-2019 11:03-0400 Body weight 70.3 kg Gabino Ramachandranmarito [facility] 02-11-2019 11:03-0400 Height 165.1 cm Gabino Ramachandranmarito [facility] Encounters Encounter Date Encounter Type Care Provider Facility Start: 02-02-2024 End: 02-02-2024 ambulatory [facility] Work Phone: Start: 02-02-2024 End: 02-02-2024 Patient encounter procedure [facility] Work Phone: Start: 01-12-2024 End: 01-12-2024 ambulatory [facility] Not Available Start: 06-22-2022 End: 06-23-[address] IZABEL GONZALES Facility:[facility] Start: 10-09-2021 End: 10-09-[address] IZABEL GONZALES Facility:[facility] Start: 10-07-2021 Encounter for other preprocedural examination DR IZABEL GONZALES [facility] Start: 10-06-[address] IZABEL GONZALES Facility :[facility] Start: 10-01-2021 End: 10-02-[address] IZABEL GONZALES Facility:[facility] Start: 10-01-2021 End: 10-02-2021 Encounter for other preprocedural examination DR IZABEL GONZALES Facility:[facility] Start: 08-30-2021 End: 08-31-2021 ambulatory MELISSA JONES Facility:[facility] Start: 08-25-2021 End: 08-25-[address] IZABEL GONZALES Facility:[facility] Start: 08-24-2021 End: 08-24-[address] SOFIA SCHWARTZ Facility:[facility] Start: 02-11-2019 End: 02-11-2019 Emergency department patient visit Gabino Prieto -Emergency Room Start: 04-06-2018 End: 04-06-2018 Patient encounter procedure Gabino Prieto -Ultrasound Cntr for Breast Car Procedures Date Procedure Procedure Detail Performing Clinician Start: 02-02-2024 Quick Strep (POC) Start: 02-11-2019 CT abdomen pelvis wo con Gabino Madieshan Plan of Treatment Date Care Activity Detail Author Patient Education Kidney Stones (ED) How to Strain Your Urine (ED) [facility] Patient referral [facility] Payers Date Payer Category Payer Medicaid [id number] 1990 Unknown [id number] 2.16.84 [id number] 1990 Unknown [id number] 2.16.84 [id number] 1989 Unknown [id number] 2.16.84 [id number] 1989 Unknown [id number] 2.16.84 [id number] 1989 Unknown [id number] 2.16.84 [id number] 1989 Unknown [id number] 2.16.84 [id number] 1989 Unknown [id number] 2.16.84 [id number] 1989 Unknown [id number] 2.16.84 [id number] 1989 Unknown [id number] 2.16.84 [id number] 1960 Unknown [id number] 1960 Unknown [id number] Self-pay Self Pay [id number] Unknown Self Pay [id number] Unknown Hadar BC/BS [id number] Unknown Insurance No Card [id number] Social History Date Type Detail Facility Start: 02-11-2019 [facility] Start: 1990 Sex Assigned At Female F [facility] Start: 02-02-2024 Tobacco smoking stat [facility] Ex-smoker (finding) [facility] Goals Date Patient Goal Desired Activity /State Clinical Note 10-09-2021 Note Date & Type Note Facility 10-09-2021 Note OPERATIVE NOTE OPERATION DATE: 10/09/2021 PROCEDURE: Juhi endometrial ablation with hysteroscopy. PREOPERATIVE DIAGNOSIS: Menorrhagia. POSTOPERATIVE DIAGNOSIS: Menorrhagia. ANESTHESIA: General. SURGEON: Izabel Gonzales M.D. DETENTION WORKER: None. FINDINGS: Normal appearing endometrium. Both ostia seen. No gross evidence of polyps, fibroids or malignancy. SPECIMEN: None. BLOOD LOSS: 5 mL. URINE OUTPUT: Yellow and clear. PROCEDURE: The patient was taken back to the OR where she was prepped and draped in the normal sterile fashion after being placed in the dorsal lithotomy position, after being placed under general anesthesia without difficulty. A weighted speculum was placed into the vagina. The anterior lip was grasped with a single tooth tenaculum. The patient was then sounded to approximated 9 cm. The patient's cervix was gently dilated using Hegar dilators. The hysteroscope was passed through the cervix into the uterus where both ostia were seen. No gross evidence of polyps, fibroids or malignancy. The cervical length was noted to be 4.5 cm. The total cavity length is 4.5 cm. The Juhi ablation apparatus was set to approximately 4.5 cm in length. This was placed through the cervix and into the uterus. After the seal was tested, at that time the total ablation of 120 seconds was performed with the Juhi without difficulty. All instruments were removed from the vagina. Excellent hemostasis noted. Sponge and lap count correct times 2. Patient taken to recovery in stable condition. [facility] Signed and Approved by: DR IZABEL GONZALES . 10/13/2021 07:35:00 [facility] Evaluation note Note Date & Type Note Facility Evaluation note Diagnosis Onset Date COVID acute Contact with and (suspected) exposure to covid-19 noneactive Sore throat noneactive [facility] Work Phone: Advance Directives Advance Directive Response Recorded Date/ Time Advance Directives No March 29, 2018 5:45pm Advance Directive Response Recorded Date/ Time Advance Directives No March 29, 2018 6:45pm Chief Complaint and Reason for Visit Chief Complaint Lower L side back pa in Chief Complaint Sinus congestion Reason for Visit COVID Contact with and (suspected) exposure to covid-19 Sore throat Assessments No Assessments Information Available Summary Purpose Family History No Family History Records FoundNo Family History Records Found Additional Source Comments INFORMATION SOURCE (unrecogn ized section and content) DATE CREATED AUTHOR 06/25/2022 [facility] DATE CREATED AUTHOR AUTHOR'S ORGANIZ ATION 01/14/2024 [facility] Care Teams (unrecognized sec tion and content) Team Status: Active Member Role Status Dates Gabino Prieto DO Primary Care Provider Active Team Status: Inactive Member Role Status Dates Gabino Prieto DO Primary Care Provider Active Start: February 02, 2024 End: February 02, 2024 Hilaria LOPEZ APRN Attending Provider Active Start: February 02, 2024 End: February 02, 2024 Goals (unrecognized section and content) Goals may be documented in a n alternate section FOR RECORDS PERTAINING TO PATIENTS WHO ARE OR HAVE BEEN ENROLLED IN A CHEMICAL DEPENDENCY/SUBSTANCEABUSE PROGRAM, SOME INFORMATION MAY BE OMITTED. This clinical summary was aggregated from multiple sources. Caution should be exercised in using it in the provision of clinical care. This summary normalizes information from multiple sources, and as a consequence, information in this document may materially change the coding, format and clinical context of patient data. In addition, data may be omitted in some cases. CLINICAL DECISIONS SHOULD BE BASED ON THE PRIMARY CLINICAL RECORDS. [facility] [employer] [facility]. provides no warranty or guarantee of the accuracy or completeness of information in this document.
--- NOTE | 2024-02-05 16:59 | ECG_ITS ---
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
--- NOTE | 2024-02-05 17:17 | ED_ITS ---
HPI HPI - General Adult General Chief complaint: Dizziness Stated complaint: Dizziness Time Seen by Provider: 02/05/24 17:13 Source: patient and family Mode of arrival: Wheelchair History of Present Illness HPI narrative: This patient is here complaining of sore throat and congestion in the head area earlier this week. She went to a local urgent care and they checked her for strep throat, it was negative. They did not check her for COVID. Today she is feeling weak fatigued and tired. Her mother said that she was in the bathtub soaking and she is so weak and tired she could hardly get out. She has had na usea today but no vomiting. She has had no diarrhea this week. She has not had fever. On current antibiotics. She does not have any congestion in her chest, she has no shortness of breath. No severe cough or any sputum production. She does not have any other other underlying medical conditions such as diabetes or respiratory illnesses. Does not have a headache or neck pain. She said the so re throat actually feels little bit better. They did not give her any antibiotics or steroids. Related Data Home Medications ?Medication ?Instructions ?Recorded ?Confirmed No Known Home Medications 06/19/23 06/19/23 Allergies Allergy/AdvReac Type Severity Reaction Status Date / Time levaquin Allergy Hives Uncoded 06/19/23 19:26 Opioid HPI Opioid Management Most Recent Opioid Data: Last Pain Scale 6 06/19/23 20:17 PFSH PFSH Social History Smoking status: Former smoker Exam Narrative Exam Narrative: Patient is under the blankets looks like she does not feel well however her cognition and mental status are normal. Her vital signs are stable. She is here with her mother who confirms the information She has no cough congestion or respiratory distress with a normal pulse oximetry 98%. She does still complain of little bit of sore throat but says it is actually getting better. She moves about comfortably with no focal neurological symptomatology or deficits. Based on her history we believe that she is mild volume depleted. She is not having abdominal pain. She is not confused and her mother actually admits that she seems to be normal at this time. Constitutional Vital Signs, click to edit/add: Last Vital Signs Temp 98.4 F 02/05/24 16:52 Pulse 82 02/05/24 16:52 Resp 18 02/05/24 16:52 BP 124/86 09/14/24 16:52 Pulse Ox 98 02/05/24 16:52 O2 Del Method Room Air 02/05/24 16:52 Course Vital Signs Vital signs: Vital Signs Temperature 98.4 F 02/05/24 16:52 Pulse Rate 82 02/05/24 16:52 Respiratory Rate 18 02/05/24 16:52 Blood Pressure 124/86 02/05/24 16:52 Pulse Oximetry 98 02/05/24 16:52 Oxygen Delivery Method Room Air 02/05/24 16:52 Temperature 98.4 F 02/05/24 16:52 Pulse Rate 82 02/05/24 16:52 Respiratory Rate 18 02/05/24 16:52 Blood Pressure 124/86 02/05/24 16:52 Pulse Oximetry 98 02/05/24 16:52 Oxygen Delivery Method Room Air 02/05/24 16:52 Medical Decision Making MDM Narrative Medical decision making narrative: We are seeing a rapid increase in COVID patients and her test today here is positive as well as we clinically suspected. We have given her a liter of fluids. Her respiratory status is stable. Her influenza testing is negative. We will give her a work note for several days we want this patient to be in a mask and she should not be around any other folks with comorbidities. I do not believe she needs Paxlovid at this time as she is otherwise healthy 33-year-old. Discharge Plan Discharge Chief Complaint: Dizziness Clinical Impression: COVID Patient Disposition: Home, Self-Care Time of Disposition Decision: 18:20 Prescriptions / Home Meds: No Action No Known Home Medications Print Language: Tamazight Additional Instructions: Take plenty of fluids/alternate Tylenol with Motrin for fever control. Return for any difficulty breathing Referrals: Stoney DOLAN [Primary Care Provider] - 1 week
[2024-02-05] MEDS: 0.9 % SODIUM CHLORIDE 1,000 ML 1000 ML IV (17:40)
[2024-02-05] MEDS: ONDANSETRON PF 4 MG/2 ML VIAL IV (17:41)
[2024-02-05 18:04] LABS: Bilirubin Urine NEGATIVE (NEGATIVE); Blood Urine NEGATIVE (NEGATIVE); Clarity Urine CLEAR (CLEAR); Color Urine LT. YELLOW (YELLOW); Glucose Urine UA NEGATIVE (NEGATIVE); Ketones Urine NEGATIVE (NEGATIVE); Leukocyte Esterase Urine NEGATIVE (NEGATIVE); Nitrite Urine NEGATIVE (NEGATIVE); Protein Urine NEGATIVE (NEG/TRACE); Specific Gravity Urine 1.015 (1.005-1.025); Urobilinogen Urine 0.2 EU/dL (0.2-1.0)
[2024-02-05 18:04] LABS: Influenza Virus A Antigen Negative; Influenza Virus B Antigen Negative; Internal Control Within Normal Limits
[2024-02-05 18:05] LABS: SARS-CoV-2 Ag POSITIVE (NEGATIVE)
[2024-02-05 18:10] LABS: Urine Microscopic Indicated NO
[2024-02-05 18:48] VITALS: BP 126/88; PULSE 77; O2SAT 98
== END 2024-02-05 18:50 | disposition home or self-care (01) ==
PROVIDERS: Emergency Provider Emergency Medicine Emergency Medical Services; PCP Family Medicine
DX: U07.1 COVID-19 (principal); Z87.891 Personal history of nicotine dependence
CPT/HCPCS: 81003; 87804; 87811; 93005; 96374; 99285; J2405

== ENCOUNTER 2024-07-04 20:04 | Emergency (ER) | payer MEDICAID, SELFPAY ==
--- OUTSIDE RECORDS SUMMARY | 2024-07-04 20:09 | XMS_ITS | CCD ---
Author Organization [facility] Care Team Providers Care Contemporary Or Modern Dancer Name Role Phone Gabino Prieto Primary Care Provider Unavailmargaret GONZALES, DR PAIZ Admitting Unavailable GONZÁLEZ, DR PAIZ Attending Unavailable KAROXANNEAN, DR Stoney JAY Primary Care Unavailable GONZÁLEZ, DR PAIZ Consulting Unavailable AGUBOSIM, SHILA Consulting Unavailable SERENE MARTINO Consulting Unavailable ARTIE LI Consulting Unavailable MELISSA JONES Attending Unavailable MELISSA JONES Admitting Unavailable MAGDALENO, DR Stoney JAY Primary Care Unavailable ALEXIS, DR MALICK Rain Consulting Unavailable MELISSA JONES Consulting Unavailable GONZÁLEZ, DR PAIZ Consulting Unavailable GONZÁLEZ, DR PAZI Admitting Unavailable KASHAN, DR Stoney JAY Primary Care [...] Attending Unavailable GONZÁLEZ, DR PAIZ Admitting Unavailable MAZARIEGOSCORTNEY KWON Consulting Unavailable MAGDALENO, DR Stoney JAY Primary Care Unavailable GONZÁLEZ, DR PAIZ Admitting Unavailable GONZÁLEZ, DR PAIZ Attending Unavailable MAGDALENO, DR Stoney JAY Primary Care Unavailable DR Stoney PRIETO Referring Unavailable DR IZABEL GONZALES Consulting Unavailable Warren Prieto DO Primary Care Provider TUNG SHIELDS Attending Unavailable CORRINE AMBROSIO Attending Unavailable Unavailable Unavailable Unavailable Allergies Allergy Classification Reported Allergen(s) Allergy Type Date of Onset Reaction(s) Facility (6 sources) levoFLOXacin Drug Allergy 02-08-2023 [facility] (1 source) levoFLOXacin Drug Allergy 11-10-2012 [facility] Medications Current Medications Medication Drug Class(es) Dates Sig (Normalized) Sig (Original) acetaminophen 325 mg / HYDROcodone bitartrate 5 mg oral tablet (2 sources) Opioid Agonist Start: 02-11-2019 End: 02-02-2024 take 1 tablet by mouth every four to six hours Hydrocodone-Acetam inophen Active 1 TAB Oral EVERY 4-6 HOURS 7 3 February 11, 2019 2:49pm cephalexin 500 mg oral capsule (2 sources) Cephalosporin Antibacterial Start: 05-22-2024 End: 06-01-2024 take 1 capsule by mouth in the morning, then take 1 capsule by mouth in the evening, then take 1 capsule by mouth at bedtime cephalexin (Keflex) 500 MG capsule Indications: Paronychia of great toe of right foot Take 1 capsule (500 mg) by mouth in the morning and 1 capsule (500 mg) in the evening and 1 capsule (500 mg) before bedtime. Do all this for 10 days. 30 capsule 05/22/2024 06/01/2024 Active ciclopirox 80 mg/ml topical solution (2 sources) Start: 05-22-2024 ciclopirox (Penlac) 8 % solution Indications: Toenail fungus Apply topically at bedtime 6 mL 05/22/2024 Active naproxen 500 mg oral tablet (2 sources) Nonsteroidal Anti-inflammatory Drug Start: 02-11-2019 End: 02-02-2024 take 500 mg by mouth every twelve hours at mealtime Naproxen Active 500 MG Oral Q12H February 11, 2019 2:49pm administer with food or milk Nirmatrelvir-Ritona vir (Paxlovid) 300 mg (150 mg x 2)-100 [...] MG Oral Daily February 11, 2019 2:49pm Completed/Discontinued Medications Medication Drug Class(es) Dates Sig (Normalized) Sig (Original) fluticasone propionate 0.05 mg/actuat metered dose nasal spray (10 sources) Corticosteroid Start: 02-08-2023 End: 05-22-2024 take 1-2 spray(s) nasal route once daily as needed fluticasone (Flonase) 50 MCG/ACT nasal spray Indications: Allergic rhinitis, unspecified seasonality, unspecified trigger USE 1 - 2 SPRAYS IN EACH NOSTRIL ONCE A DAY NEEDED 48 mL 1 02/08/2023 05/22/2024 Discontinued Problems Active Problems Problem Classification Problem Date Documented Date Episodic/Chronic Calculus of urinary tract (3 sources) Ureteric stone; Translations: [Kidney stone] 02-02-2024 Episodic Coagulation and hemorrhagic disorders (5 sources) Thrombocytopenic disorder; Translations: [Thrombocytopenia, unspecified] Onset: 02-08-2023 02-08-2023 Chronic Immunizations and screening for infectious disease (2 sources) Encounter for screening for human papillomavirus (HPV); Translations: [Contact with or exposure to other viral diseases] Onset: 08-28-2021 02-02-2024 Episodic Menstrual disorders (10 sources) Excessive and frequent menstruation with regular cycle; Translations: [Menorrhagia] Onset: 10-07-2021 Chronic Mycoses (2 sources) Onychomycosis of toenails; Translations: [Tinea unguium] 05-22-2024 Episodic Other liver diseases (5 sources) Liver disease, unspecified; Translations: [LIVER DISEASE UNSPECIFIED] Onset: 08-30-2021 Chronic Other liver diseases (5 sources) Lesion of liver; Translations: [Liver disease, unspecified] Onset: 02-08-2023 02-08-2023 Chronic Other nutritional; endocrine; and metabolic disorders (5 sources) Obesity; Translations: [Obesity, unspecified] Onset: 02-08-2023 02-08-2023 Chronic Other upper respiratory infections (5 sources) Sinusitis; Translations: [Chronic sinusitis, unspecified] Onset: 02-08-2023 02-08-2023 Chronic Other upper respiratory infections (3 sources) Pharyngitis; Translations: [Acute pharyngitis, unspecified] 05-05-2023 Episodic Skin and subcutaneous tissue infections (2 sources) Paronychia of toe of right foot; Translations: [Cellulitis of right toe] 05-22-2024 Episodic Unclassified (1 source) CONTACT W/AND (SUSP) EXPOS COVID-19; Translations: [CONTACT W/AND (SUSP) EXPOS COVID-19] Onset: 08-25-2021 Past or Other Problems Problem Classification Problem Date Documented Date Episodic/Chronic Abdominal pain (7 sources) Pelvic and perineal pain; Translations: [Unspecified abdominal pain] Onset: 08-25-2021 02-08-2023 Episodic Cancer of cervix (5 sources) Cervicovaginal cytology: Low grade squamous intraepithelial lesion; Translations: [Low grade squamous intraepithelial lesion on cytologic smear of cervix (LGSIL)] Onset: 02-08-2023 02-08-2023 Episodic Contraceptive and procreative management (1 source) Tubal [...] HISTORY OF NICOTINE DEPEND] Onset: 10-14-2021 Episodic Viral infection (9 sources) Disease caused by 2019-nCoV; Translations: [COVID-19] Onset: 02-08-2023 02-02-2024 Episodic Results Test Name Value Interpretation Reference Range Facility No Panel InformationOrdered By: Hilaria Shell on 02-02-2024 Quick Strep (POC) [facility] CBC AUTO DIFFon 06-22-2022 BASO # 0.0 103/ul Normal 0.0-0.1 [facility] Comment on above: Performed By: #### C BC #### [facility] [address] [place] [address] Dr. Cain Mcwilliams Basophils/100 WBC (Bld) 0.4 % Normal 0.2-2.0 [facility] [place] Comment on above: Performed By: #### C BC #### [facility] [address] [address] [address] Cain Mcwilliams EO # 0.1 103/ul Normal 0.0-0.7 [facility] Comment on above: Performed By: #### C BC #### [facility] [address] [address] [address] Cain Mcwilliams Eosinophils/100 WBC (Bld) 2.0 % Normal 0.9-7.0 [facility] Comment on above: Performed By: #### C BC #### [facility] [address] [place] [address] Dr. Cain Mcwilliams Erythrocyte distribution width (RBC) [Ratio] 12.8 % Normal 11.0-15.0 [facility] Comment on above: Performed By: #### C BC #### [facility] [address] [place] [address] Dr. Cain Mcwilliams Hematocrit (Bld) [Volume fraction] 40.6 % Normal 36.0-48.0 [facility] Comment on above: Performed By: #### C BC #### [facility] [address] [place] [address] Dr. Cain Mcwilliams Hemoglobin (Bld) [Mass/Vol] 14.1 g/dL Normal 12.0-16.0 [facility] Comment on above: Performed By: #### C BC #### [facility] [address] [place] [address] Dr. Cain Mcwilliams IG # 0.01 10e3/ul Normal 0.00-0.03 [facility] Comment on above: Performed By: #### C BC #### [facility] [address] [place] [address] Dr. Cain Mcwilliams IG % 0.2 % Normal 0.0-0.5 [facility] Comment on above: Performed By: #### C BC #### [facility] [address] [place] [address] Dr. Cain Mcwilliams LYMPH # 1.1 103/ul Critically low 1.2-3.8 [facility] Comment on above: Performed By: #### C BC #### [facility] [address] [place] [address] Dr. Cain Mcwilliams Lymphocytes/100 WBC (Bld) 24.6 % Normal 20.5-60.0 [facility] Comment on above: Performed By: #### C BC #### [facility] [address] [place] [address] Dr. Cain Mcwilliams MANUAL DIFF REQ NO Normal [facility] Comment on above: Performed By: #### C BC #### [facility] [address] [place] [address] Dr. Cain Mcwilliams MCH (RBC) [Entitic mass] 30.1 pg Normal 26.7-34.0 [facility] Comment on above: Performed By: #### C BC #### [facility] [address] [place] [address] Dr. Cain Mcwilliams MCHC (RBC) [Mass/Vol] 34.7 g/dL Normal 29.9-35.2 [facility] Comment on above: Performed By: #### C BC #### [facility] [address] [place] [address] Dr. Cain Mcwilliams MCV (RBC) [Entitic vol] 86.8 fL Normal 81.0-99.0 [facility] Comment on above: Performed By: #### C BC #### [facility] [address] [place] [address] Dr. Cain Mcwilliams MONO # 0.3 103/ul Normal 0.3-0.8 [facility] Comment on above: Performed By: #### C BC #### [facility] [address] [place] [address] Dr. Cain Mcwilliams Monocytes/100 WBC (Bld) 6.5 % Normal 1.7-12.0 [facility] [place] Comment on above: Performed By: #### C BC #### [facility] [address] [place] [address] Dr. Cain Mcwilliams NEUT # 3.1 103/ul Normal 1.4-6.5 [facility] Comment on above: Performed By: #### C BC #### [facility] [address] [place] [address] Dr. Cain Mcwilliams Neutrophils/100 WBC (Bld) 66.3 % Normal 43.0-75.0 [facility] Comment on above: Performed By: #### C BC #### [facility] [address] [place] [address] Dr. Cain Mcwilliams Platelet mean volume (Bld) [Entitic vol] 10.9 fL Normal 9.5-13.5 [facility] Comment on above: Performed By: #### C BC #### [facility] [address] [place], [place] [id number] Dr. Cain Mcwilliams PLT 141 103/ul Critically low 150-450 [facility] Comment on above: Performed By: #### C BC #### [facility] [address] [place] [address] Dr. Cain Mcwilliams RBC 4.68 106/ul Normal 4.20-5.40 [facility] Comment on above: Performed By: #### C BC #### [facility] [address] [place] [address] Dr. Cain Mcwilliams WBC 4.6 103/ul Normal 4.0-11.0 [facility] Comment on above: Performed By: #### C BC #### [facility] [address] [place] [address] Dr. Cain Mcwilliams FREE T4on 06-22-2022 Free T4 [Mass/Vol] 0.99 ng/dL Normal 0.76-1.46 [facility] Comment on above: Performed By: #### F T4 #### [facility] [address] [place] [address] Dr. Cain Mcwilliams GLYCOHEMOGLOBIN A1Con 2022 ADA RECOMMENDATION SEE BELOW Normal [facility] Comment on above: Result Comment: ADA RECOMMENDED LIMIT 4.0 - 6.0 ADA THERAPEUTIC TARGET < 7.0 ACTION SUGGESTED > 7.0 Performed By: #### A 1C #### [facility] [address] [place] [address] Dr. Cain Mcwilliams Glucose [Mass/Vol] 97 mg/dL Normal [facility] Comment on above: Performed By: #### A 1C #### [facility] [address] [place] [address] Dr. Cain Mcwilliams HbA1c (Bld) [Mass fraction] 5.0 % Normal 4.5-6.2 [facility] Comment on above: Performed By: #### A 1C #### [facility] [address] [place] [address] Dr. Cain Mcwilliams PROTIMEon 06-22-2022 INR Coag (PPP) [Relative time] 0.95 {INR} Normal [facility] Comment on above: Performed By: #### C BC #### [facility] [address] [place] [address] Dr. Cain Mcwilliams INR GUIDELINES SEE BELOW Normal [facility] Comment on above: Result Comment: ABIODUN RED INR: 2.0 - 3.0 CONDITIONS NOT LISTED BELOW 2.5 - 3.5 FOR PROSTHETIC HEART VALVE REPLACEMENT 2.5 - 3.5 RECURRENT THROMBOSIS Performed By: #### C BC #### [facility] [address] [place] [address] Dr. Cain Mcwilliams PT Coag (PPP) [Time] 10.1 s Normal 9.0-11.6 [facility] Comment on above: Performed By: #### C BC #### [facility] [address] [place] [address] Dr. Cain Mcwilliams PTTon 06-22-2022 aPTT Coag (Bld) [Time] 29.4 s Normal 22.3-36.2 [facility] Comment on above: Performed By: #### C BC #### [facility] [address] [place] [address] Dr. Cain Mcwilliams TSHon 06-22-2022 TSH 1.596 uIU/mL Normal 0.358-3.740 [facility] Comment on above: Performed By: #### T SH #### [facility] [address] [place] [address] Dr. Cain Mcwilliams US PELVIS AND TRANSVAGon [...] Normal pelvic ultrasound. Electronically authenticated by: MALICK ALEXIS Date: 2022-06-22 16:47 Normal [facility] CBC AUTO DIFFon 10-09-2021 BASO # 0.0 103/ul Normal 0.0-0.1 [facility] Comment on above: Performed By: #### C BC #### [facility] [address] [address] [address] Cain Mcwilliams Basophils/100 WBC (Bld) 0.4 % Normal 0.2-2.0 [facility] Comment on above: Performed By: #### C BC #### [facility] [address] [place] [address] Dr. Cain Mcwilliams EO # 0.0 103/ul Normal 0.0-0.7 [facility] Comment on above: Performed By: #### C BC #### [facility] [address] [address] [address] Cain Mcwilliams Eosinophils/100 WBC (Bld) 0.8 % Critically low 0.9-7.0 [facility] Comment on above: Performed By: #### C BC #### [facility] [address] [place] [address] Dr. Cain Mcwilliams Erythrocyte distribution width (RBC) [Ratio] 12.8 % Normal 11.0-15.0 [facility] Comment on above: Performed By: #### C BC #### [facility] [address] [place] [address] Dr. Cain Mcwilliams Hematocrit (Bld) [Volume fraction] 41.6 % Normal 36.0-48.0 [facility] Comment on above: Performed By: #### C BC #### [facility] [address] [place] [address] Dr. Cain Mcwilliams Hemoglobin (Bld) [Mass/Vol] 13.8 g/dL Normal 12.0-16.0 [facility] Comment on above: Performed By: #### C BC #### [facility] [address] [place] [address] Dr. Cain Mcwilliams IG # 0.01 10e3/ul Normal 0.00-0.03 [facility] Comment on above: Performed By: #### C BC #### [facility] [address] [place] [address] Dr. Cain Mcwilliams IG % 0.2 % Normal 0.0-0.5 [facility] Comment on above: Performed By: #### C BC #### [facility] [address] [place] [address] Dr. Cain Mcwilliams LYMPH # 1.3 103/ul Normal 1.2-3.8 [facility] Comment on above: Performed By: #### C BC #### [facility] [address] [place] [address] Dr. Cain Mcwilliams Lymphocytes/100 WBC (Bld) 27.1 % Normal 20.5-60.0 [facility] Comment on above: Performed By: #### C BC #### [facility] [address] [place] [address] Dr. Cain Mcwilliams MANUAL DIFF REQ NO Normal [facility] Comment on above: Performed By: #### C BC #### [facility] [address] [place] [address] Dr. Cain Mcwilliams MCH (RBC) [Entitic mass] 30.5 pg Normal 26.7-34.0 [facility] Comment on above: Performed By: #### C BC #### [facility] [address] [place] [address] Dr. Cain Mcwilliams MCHC (RBC) [Mass/Vol] 33.2 g/dL Normal 29.9-35.2 [facility] Comment on above: Performed By: #### C BC #### [facility] [address] [place] [address] Dr. Cain Mcwilliams MCV (RBC) [Entitic vol] 91.8 fL Normal 81.0-99.0 [facility] Comment on above: Performed By: #### C BC #### [facility] [address] [place] [address] Dr. Cain Mcwilliams MONO # 0.3 103/ul Normal 0.3-0.8 [facility] Comment on above: Performed By: #### C BC #### [facility] [address] [place] [address] Dr. Cain Mcwilliams Monocytes/100 WBC (Bld) 6.3 % Normal 1.7-12.0 [facility] Comment on above: Performed By: #### C BC #### [facility] [address] [place] [address] Dr. Cain Mcwilliams NEUT # 3.1 103/ul Normal 1.4-6.5 [facility] Comment on above: Performed By: #### C BC #### [facility] [address] [place] [address] Dr. Cain Mcwilliams Neutrophils/100 WBC (Bld) 65.2 % Normal 43.0-75.0 [facility] Comment on above: Performed By: #### C BC #### [facility] [address] [place] [address] Dr. Cain Mcwilliams Platelet mean volume (Bld) [Entitic vol] 11.3 fL Normal 9.5-13.5 [facility] Comment on above: Performed By: #### C BC #### [facility] [address] [place] [address] Dr. Cain Mcwilliams PLT 149 103/ul Critically low 150-450 [facility] Comment on above: Performed By: #### C BC #### [facility] [address] [place] [address] Dr. Cain Mcwilliams RBC 4.53 106/ul Normal 4.20-5.40 [facility] Comment on above: Performed By: #### C BC #### [facility] [address] [place] [address] Dr. Cain Mcwilliams WBC 4.8 103/ul Normal 4.0-11.0 [facility] Comment on above: Performed By: #### C BC #### [facility] [address] [place] [address] Dr. Cain Mcwilliams PREG QUANT HCGon 10-09-2021 HCG QUANT <[address] [facility] Comment on above: Performed By: #### C BC #### [facility] [address] [address] [address] Cain Mcwilliams HCG RANGE SEE BELOW [facility] Comment on above: Result Comment: 5-50 0-1 WEEK 40-300 1-2 WEEKS 100-1,000 2-3 WEEKS 500-6,000 3-4 WEEKS 5,000-200,000 1-2 MONTHS 10,000-100,000 2-3 MONTHS 3,000-50,000 2ND TRIMESTER 1,000-50,000 3RD TRIMESTER Performed By: #### C BC #### [facility] [address] [address] [address] Cain Mcwilliams PAP ACOG PANEL 2: 29 to 64on 09-02-[address] [facility] Comment on above: Result Comment: Perf ormed at: WB Performed By: #### C BC #### [facility] [address] [place] [address] Dr. Cain Mcwilliams Age Gdln ACOG Testing -64 [facility] Comment on above: Performed By: #### C BC #### [facility] [id number] Cain Mcwilliams DIAGNOSIS: Comment Normal [facility] Comment on above: Result Comment: NEGA TIVE FOR INTRAEPITHELIAL LESION OR MALIGNANCY. THIS SPECIMEN WAS RESCREENED PART OF OUR TAGMAN PROGRAM. Performed at: WB Performed By: #### C BC #### [facility] [address] [address] [address] Cain Mcwilliams HPV Aptima Negative Normal Negative [facility] Comment on above: Result Comment: This nucleic acid amplification test detects fourteen high-risk HPV types (16,18,31,33,35,39,45,51,52,56,58,59,66,68) without differentiation. Performed at: =G Performed By: #### C BC #### [facility] [address] [place], [place] [id number] Dr. Cain Mcwilliams Methodology: Comment Normal [facility] Comment on above: Result Comment: This liquid based ThinPrep(R) pap test was screened with the use of an image guided system. Performed at: WB Performed By: #### C BC #### [facility] [address] [address] [address] Cain Mcwilliams Note: Comment Normal [facility] Comment on above: Result Comment: The [...] WB Performed By: #### C BC #### [facility] [address] [address] [address] Cain Mcwilliams Performed by: Comment Normal [facility] Comment on above: Result Comment: Martha Odonnell, Arson And Bomb Investigator (ASCP) Performed at: WB Performed By: #### C BC #### [facility] [address] [place] [address] Dr. Cain Mcwilliams QC reviewed by: Comment Normal [facility] Comment on above: Result Comment: Steven Silver, Supervisory Arson And Bomb Investigator (ASCP) Performed at: WB Performed By: #### C BC #### [facility] [address] [address] [address] Cain Mcwilliams Specimen adequacy: Comment Normal [facility] Comment on above: Result Comment: Sati sfactory for evaluation. Endocervical and/or squamous metaplastic cells (endocervical component) are present. Performed at: WB Performed By: #### C BC #### [facility] [address] [address] [address] Cain Mcwilliams US PELVIS AND TRANSVAGon [...] by: MALICK ESPINOZA Date: 2021-08-30 10:29 Normal [facility] US SINGLE QUAD RT UPPERon US SINGLE [...] MALICK ESPINOZA Date: 2021-08-30 10:31 Normal [facility] CBC W MANUAL DIFFon 08-25-19 22 ATYPICAL LYMPH # Normal [facility] Comment on above: Performed By: #### C RAY #### [facility] [address] [address] [address] Cain Mcwilliams ATYPICAL LYMPH % Normal [facility] Comment on above: Performed By: #### C RAY #### [facility] [address] [address] [address] Cain Mcwilliams BAND # 0.2 103/ul Normal 0.0-0.3 [facility] Comment on above: Performed By: #### C RAY #### [facility] [address] [address] [address] Cain Mcwilliams BAND % 3 % Normal 0-5 [facility] Comment on above: Performed By: #### C RAY #### [facility] [address] [address] [address] Cain Mcwilliams BASOM # 0.00 103/ul Normal 0.00-0.10 [facility] Comment on above: Performed By: #### C RAY #### [facility] [address] [address] [address] Cain Mcwilliams BASOM % 0.0 % Critically low 0.2-2.0 [facility] Comment on above: Performed By: #### C RAY #### [facility] [address] [place] [address] Dr. Cain Mcwilliams BLAST # Normal [facility] Comment on above: Performed By: #### C RAY #### [facility] [address] [place] [address] Dr. Cain Mcwilliams BLAST % Normal [facility] Comment on above: Performed By: #### C RAY #### [facility] [address] [place] [address] Dr. Cain Mcwilliams CORRECTED WBC Normal 4.0-11.[address] [facility] Comment on above: Performed By: #### C RAY #### [facility] [address] [place] [address] Dr. Cain Mcwilliams EOS # 0.00 103/ul Normal 0.00-0.70 [facility] Comment on above: Performed By: #### C RAY #### [facility] [address] [place] [address] Dr. Cain Mcwilliams EOS% 0.0 % Critically low 0.9-7.0 [facility] Comment on above: Performed By: #### C RAY #### [facility] [address] [place] [address] Dr. Cain Mcwilliams HCT 44.2 % Normal 36.0-48.0 [facility] Comment on above: Performed By: #### C RAY #### [facility] [address] [place] [address] Dr. Cain Mcwilliams HGB 14.6 g/dl Normal 12.0-16.0 [facility] Comment on above: Performed By: #### C RAY #### [facility] [address] [address] [address] Cain Mcwilliams LYMPHM # 0.34 103/ul Critically low 1.20-3.80 [facility] Comment on above: Performed By: #### C RAY #### [facility] [address] [address] [address] Cain Mcwilliams LYMPHM% 5.0 % Critically low 20.5-60.0 [facility] Comment on above: Performed By: #### C RAY #### [facility] Laboratory [address] [place] [address] Dr. Cain Mcwilliams MCH 30.0 pg Normal 26.7-34.0 [facility] Comment on above: Performed By: #### Delia BELL #### [facility] [address] [place] [address] Dr. Cain Mcwilliams MCHC 33.0 g/dl Normal 29.9-35.2 [facility] Comment on above: Performed By: #### Delia BELL #### [facility] [address] [place] [address] Dr. Cain Mcwilliams MCV 90.9 fL Normal 81.0-99.0 [facility] Comment on above: Performed By: #### Delia BELL #### [facility] [address] [place] [address] Dr. Cain Mcwilliams METAMYELOCYTE # Normal [facility] Comment on above: Performed By: #### C RAY #### [facility] [address] [address] [address] Cain Mcwilliams METAMYELOCYTE % Normal [facility] Comment on above: Performed By: #### C RAY #### [facility] [address] [place] [address] Dr. Cain Mcwilliams MONOM# 0.21 103/ul Critically low 0.30-0.80 [facility] Comment on above: Performed By: #### C RAY #### [facility] [address] [place] [address] Dr. Cain Mcwilliams MONOM% 3.0 % Normal 1.7-12.0 [facility] Comment on above: Performed By: #### C RAY #### [facility] [address] [address] [address] Cain Mcwilliams MPV 11.3 fL Normal 9.5-13.5 [facility] Comment on above: Performed By: #### C RAY #### [facility] [address] [place] [address] Dr. Cain Mcwilliams MYELOCYTE # Normal [facility] Comment on above: Performed By: #### C RAY #### [facility] [address] [place] [address] Dr. Cain Mcwilliams MYELOCYTE % Normal [facility] Comment on above: Performed By: #### Delia BELL #### [facility] [address] [place] [address] Dr. Cain Mcwilliams NRBC Normal [facility] Comment on above: Performed By: #### C RAY #### [facility] [address] [place] [address] Dr. Cain Mcwilliams PLT 153 103/ul Normal 150-450 [facility] Comment on above: Performed By: #### C RAY #### [facility] [address] [place] [address] Dr. Cain Mcwilliams RBC 4.86 106/ul Normal 4.20-5.40 [facility] Comment on above: Performed By: #### C RAY #### [facility] [address] [place] [address] Dr. Cain Mcwilliams RDW 12.5 % Normal 11.0-15.0 [facility] Comment on above: Performed By: #### C RAY #### [facility] [address] [place] [address] Dr. Cain Mcwilliams SEG # 6.14 103/ul Normal 1.40-6.50 [facility] Comment on above: Performed By: #### C RAY #### [facility] [address] [place], [place] [address] Dr. Cain Mcwilliams SEG % 89.0 % Critically high 43.0-75.0 [facility] Comment on above: Performed By: #### C RAY #### [facility] [address] [place], [place] [address] Dr. Cain Mcwilliams WBC 6.9 103/ul Normal 4.0-11.0 [facility] Comment on above: Performed By: #### C RAY #### [facility] [address] [place], [place] [address] ABD/PELV W CONon 08-25-19 CT ABD/PELV W CON EXAMINATION: CT ABD/PELV [...] for better evaluation. Electronically authenticated by: ISHMAEL WEBBERVICKY Date: 2021-08-24 17:39 Normal [facility] CULTURE BLOODon 08-24-2021 Microscopic examination of blood, culture Culture Observations: No growth at 5 days. Normal [facility] Comment on above: Performed By: #### C BC #### [facility] [address] [address] [address] Cain Mcwilliams Microscopic examination of blood, culture Culture Observations: No growth at [address] [facility] Comment on above: Performed By: #### C BC #### [facility] [address] [address] [address] Cain Mcwilliams Covid-19 PCR (CVDTB)on SARS-CoV-2 (COVID-19) RNA DANIELLE+probe Ql (Unsp spec) Not detected Normal NOT DETECTED [facility] Comment on above: Result Comment: When diagnostic [...] for this test is supported by the Lottie of Health and Human Service's declaration that [...] longer be used). Performed By: #### C VDTBH #### [facility] [address] [address] [address] Cain Mcwilliams ER URINE PROFILEon 2 Bilirubin Ql (U) Negative Normal NEGATIVE [facility] Comment on above: Performed By: #### C BC #### [facility] [address] [place] [address] Dr. Cain Mcwilliams Clarity (U) SL CLOUDY Abnormal CLEAR [facility] Comment on above: Performed By: #### C BC #### [facility] [address] [place] [address] Dr. Cian Mcwilliams Color (U) YELLOW Normal YELLOW [facility] Comment on above: Performed By: #### C BC #### [facility] [address] [place] [address] Dr. Cain Mcwilliams ERUAHSheyla A micrscopic examination will be performed if indicated. Normal [facility] Comment on above: Performed By: #### C BC #### [facility] [address] [place] [address] Dr. Cain Mcwilliams Glucose Ql (U) Negative Normal NEGATIVE [facility] Comment on above: Performed By: #### C BC #### [facility] [address] [place] [address] Dr. Cain Mcwilliams Hemoglobin Ql (U) Negative Normal NEGATIVE [facility] Comment on above: Performed By: #### C BC #### [facility] [address] [place] [address] Dr. Cain Mcwilliams Ketones Ql (U) Negative Normal NEGATIVE [facility] Comment on above: Performed By: #### C BC #### [facility] [address] [place] [address] Dr. Cain Mcwilliams LEUKOCYTES Negative Normal NEGATIVE [facility] Comment on above: Performed By: #### C BC #### [facility] [address] [place] [address] Dr. Cain Mcwilliams Nitrite Ql (U) Negative Normal NEGATIVE [facility] Comment on above: Performed By: #### C BC #### [facility] [address] [place] [address] Dr. Cain Mcwilliams pH (U) 5.5 [pH] Normal 5-9 [facility] Comment on above: Performed By: #### C BC #### [facility] [address] [place] [address] Dr. Cain Mcwilliams SPEC GRAVITY 1.025 Normal 1.005-<=1.025 [facility] Comment on above: Performed By: #### C BC #### [facility] [address] [place] [address] Dr. Cain Mcwilliams UA PROTEIN Negative Normal NEGATIVE/ TRACE [facility] Comment on above: Performed By: #### C BC #### [facility] [address] [place] [address] Dr. Cain Mcwilliams UR MICRO IND NOT INDICATED Normal [facility] Comment on above: Performed By: #### C BC #### [facility] [address] [place] [address] Dr. Cain Mcwilliams Urobilinogen Qn (U) 0.2 {Claire'U}/dL Normal 0.2 - 1. 0 [facility] Comment on above: Performed By: #### C BC #### [facility] [address] [place] [address] Dr. Cain Mcwilliams LACTATE/LACTIC ACIDon 2021 Lactate [Moles/Vol] 2.1 mmol/L Critically high 0.7-2.0 [facility] Comment on above: Performed By: #### L ACT #### [facility] [address] [place] [address] Dr. Cain Mcwilliams LIPASEon 08-24-2021 Lipase [Catalytic activity/Vol] 102.0 U/L Normal 23.0-300.0 [facility] Comment on above: Performed By: #### C MP, LIPA #### [facility] [address] [place] [address] Dr. Cain Mcwilliams PREG HCG QUALon 08-24-2021 , QUAL Negative Normal NEGATIVE [facility] Comment on above: Performed By: #### C BC #### [facility] [address] [place] [address] Dr. Cain Mcwilliams PROF 14(COMP METB)on 022 Albumin [Mass/Vol] 3.7 g/dL Normal 3.4-5.0 [facility] Comment on above: Performed By: #### C MP, LIPA #### [facility] [address] [address] [address] Cain Mcwilliams Albumin/Globulin [Mass ratio] 1.1 {ratio} Normal [facility] Comment on above: Performed By: #### C MP, LIPA #### [facility] [address] [address] [address] Cain Mcwilliams ALP [Catalytic activity/Vol] 103 U/L Normal 46-116 [facility] Comment on above: Performed By: #### C MP, LIPA #### [facility] [address] [address] [address] Cain Mcwilliams ALT [Catalytic activity/Vol] 18 U/L Normal 14-59 [facility] Comment on above: Performed By: #### C MP, LIPA #### [facility] [address] [address] [address] Cain Mcwilliams Anion gap [Moles/Vol] 15.3 mmol/L Normal [facility] Comment on above: Performed By: #### C MP, LIPA #### [facility] [address] [address] [address] Cain Mcwilliams AST [Catalytic activity/Vol] 13 U/L Critically low 15-37 [facility] Comment on above: Performed By: #### C MP, LIPA #### [facility] [address] [address] [address] Cain Mcwilliams Bilirubin [Mass/Vol] 0.7 mg/dL Normal 0.2-1.3 [facility] Comment on above: Performed By: #### C MP, LIPA #### [facility] [address] [address] [address] Cain Mcwilliams Calcium [Mass/Vol] 8.3 mg/dL Critically low 8.5-10.1 [facility] Comment on above: Performed By: #### C MP, LIPA #### [facility] [address] [address] [address] Cain Mcwilliams Chloride [Moles/Vol] 102 mmol/L Normal 98-107 [facility] Comment on above: Performed By: #### C MP, LIPA #### [facility] [address] [address] [address] Cain Mcwilliams CO2 [Moles/Vol] 22.2 mmol/L Normal 22.0-30.0 [facility] Comment on above: Performed By: #### C MP, LIPA #### [facility] [address] [address] [address] Cain Mcwilliams Creatinine [Mass/Vol] 0.93 mg/dL Normal 0.52-1.04 [facility] Comment on above: Performed By: #### C MP, LIPA #### [facility] [address] [place] [address] Dr. Cain Mcwilliams EGFR-AF HUNGARIAN >60 Normal >=60 [facility] Comment on above: Performed By: #### C MP, LIPA #### [facility] [address] [address] [address] Cain Mcwilliams EGFR-NON AF HUNGARIAN >60 Normal >=60 [facility] Comment on above: Performed By: #### C MP, LIPA #### [facility] [address] [address] [address] Cain Mcwilliams Globulin (S) [Mass/Vol] 3.5 g/dL Normal [facility] Comment on above: Performed By: #### C MP, LIPA #### [facility] [address] [address] [address] Cain Mcwilliams Glucose [Mass/Vol] 108 mg/dL Critically high 74-106 [facility] Comment on above: Performed By: #### C MP, LIPA #### [facility] [address] [address] [address] Cain Mcwilliams Potassium [Moles/Vol] 3.5 mmol/L Normal 3.4-5.0 [facility] Comment on above: Performed By: #### C MP, LIPA #### [facility] [address] [address] [address] Cain Mcwilliams Protein [Mass/Vol] 7.2 g/dL Normal 6.1-8.2 [facility] Comment on above: Performed By: #### C MP, LIPA #### [facility] [address] [address] [address] Cain Mcwilliams Sodium [Moles/Vol] 136 mmol/L Critically low 137-145 [facility] Comment on above: Performed By: #### C MP, LIPA #### [facility] [address] [address] [address] Cain Mcwilliams Urea nitrogen [Mass/Vol] 11.0 mg/dL Normal 7.0-18.0 [facility] Comment on above: Performed By: #### C MP, LIPA #### [facility] [address] [place] [address] Dr. Cain Mcwilliams Urea nitrogen/Creatinine [Mass ratio] 11.8 mg/mg Normal [facility] Comment on above: Performed By: #### C MP, LIPA #### [facility] [address] [place] [address] Dr. Cain Mcwilliams Automated basophil %on 02-11 Basophils/100 WBC (Bld) 0.4 % F [facility] Automated basophil counton 0 02-11-2019 Basophils (Bld) [#/Vol] 0.0 10*3/uL 0.0-0.2 [facility] Automated blood lymphocyte c ount (number/volume)on 02-11-2019 Lymphocytes (Bld) [#/Vol] 0.8 10*3/uL 1.00-4.8 [facility] Automated blood lymphocyte c ount as percentage of total leukocyteson 02-11-2019 Lymphocytes/100 WBC (Bld) 21.0 % [facility] Automated blood monocyte cou nton 02-11-2019 Monocytes (Bld) [#/Vol] 0.2 10*3/uL 0.0-0.8 [facility] Automated blood platelet cou nt (count/volume)on 02-11-2019 Platelets (Bld) [#/Vol] 141 10*3/uL 150-450 [facility] Automated blood platelet lyn n volume measurementon 02-11-2019 Platelet mean volume (Bld) [Entitic vol] 9.4 fL 6.3-10.7 [facility] Automated eosinophil %on Eosinophils/100 WBC (Bld) 1.1 % [facility] Automated eosinophil counton 02-11-2019 Eosinophils (Bld) [#/Vol] 0.0 10*3/uL 0.0-0.45 [facility] Automated erythrocyte distri bution width ratioon 02-11-2019 Erythrocyte distribution width (RBC) [Ratio] 12.4 % 11.9-15.3 [facility] Automated erythrocyte mean c orpuscular hemoglobin (mass per erythrocyte)on 02-11-2019 MCH (RBC) [Entitic mass] 30.3 pg 24.7-34.3 [facility] Automated erythrocyte mean c orpuscular hemoglobin concentration measurement (mass/volon 02-11-2019 MCHC (RBC) [Mass/Vol] 33.8 g/dL 32.0-35.0 [facility] Automated erythrocyte mean c orpuscular volumeon 02-11-2019 MCV (RBC) [Entitic vol] 89.6 fL 80-100 F [facility] Automated erythrocytes count in urine sediment (number/area)on 02-11-2019 RBC Auto (Urine sed) [#/Area] 10-19 [HPF] [facility] Automated leukocytes count i n urine sediment (number/area)on 02-11-2019 WBC Auto (Urine sed) [#/Area] 3-4 [HPF] [facility] Automated monocyte %on 02-11 Monocytes/100 WBC (Bld) 5.6 % F [facility] Automated neutrophil %on Neutrophils/100 WBC (Bld) 71.9 % [facility] Automated urine color determ inationon 02-11-2019 Color (U) Yellow Yellow [facility] Blood erythrocytes automated count (number/volume)on 02-11-2019 RBC (Bld) [#/Vol] 4.66 10*6/uL 3.60-5.00 [facility] Blood hemoglobin measurement (mass/volume)on 02-11-2019 Hemoglobin (Bld) [Mass/Vol] 14.1 g/dL 11.8-15.4 [facility] Blood leukocytes automated c ount (number/volume)on 02-11-2019 WBC (Bld) [#/Vol] 3.8 10*3/uL 3.8-11.6 [facility] Blood neutrophil count by au tomated method (number/volume)on 02-11-2019 Neutrophils (Bld) [#/Vol] 2.7 10*3/uL 1.8-7.7 [facility] Estimated glomerular filtrat ion rate (GFR) non- Americanon 02-11-2019 GFR/1.73 sq M predicted among non-blacks MDRD (S/P/Bld) [Vol rate/Area] mL/min/{1.73_m2} [facility] Hematocrit [Volume Fraction] of Blood by Automated counton 02-11-2019 Hematocrit (Bld) [Volume fraction] 41.7 % 34.0-46.4 [facility] Otheron 02-11-2019 GFR/1.73 sq M.predicted MDRD (S/P/Bld) [Vol rate/Area] mL/min/{1.73_m2} [facility] Comment on above: GFR estimated refere nce range: According to KDOQI guidelines, <60 ml/min/1.73m2 is sufficient to diagnose a patient with chronic kidney disease. Nucleated RBC/100 WBC (Bld) [Ratio] 0.1 % 0-0.5 [facility] Creatinine Clearance (Chem [id number] [facility] Serum or plasma calcium kevin urement (mass/volume)on 02-11-2019 Calcium [Mass/Vol] 9.5 mg/dL 8.2-10.2 [facility] Serum or plasma chloride lyn surement (moles/volume)on 02-11-2019 Chloride [Moles/Vol] 107 mmol/L 95-114 [facility] Serum or plasma creatinine m easurement with calculation of estimated glomerular filtron 02-11-2019 Creatinine [Mass/Vol] 0.86 mg/dL 0.44-1.03 [facility] Serum or plasma glucose kevin urement (mass/volume)on 02-11-2019 Glucose [Mass/Vol] 103 mg/dL 70-100 [facility] Comment on above: ADA recommended refe rence rangeRandom Glucose Reference Range is dependent on time and content of last meal. Glucose of more than 200 mg/dL in a nonstressed, ambulatory subject supports the diagnosis of Diabetes Mellitus. Serum or plasma potassium me asurement (moles/volume)on 02-11-2019 Potassium [Moles/Vol] 3.9 mmol/L 3.5-5.1 [facility] Serum or plasma sodium measu rement (moles/volume)on 02-11-2019 Sodium [Moles/Vol] 139 mmol/L 136-146 [facility] Serum or plasma total carbon dioxide measurement (moles/volume)on 02-11-2019 CO2 [Moles/Vol] 24.6 mmol/L 22.0-30.0 [facility] Serum or plasma urea nitroge n measurement (mass/volume)on 02-11-2019 Urea nitrogen [Mass/Vol] 8 mg/dL 9- [facility] Specific gravity of Urine by Automated test stripon 02-11-2019 Specific gravity (U) [Rel density] 1.021 1.001-1.030 [facility] Squamous epithelial cells de tection in urine sediment by light microscopyon 02-11-2019 Epithelial cells.squamous LM Ql (Urine sed) 5-9 [HPF] [facility] Urinalysison 02-11-2019 Hyaline casts LM Ql (Urine sed) 0-8 [LPF] [facility] Urine bacteria detection by automated methodon 02-11-2019 Bacteria Auto Ql (U) None seen None Seen [facility] Urine clarity by refractomet ry automatedon 02-11-2019 Clarity Refractometry automated (U) Clear Clear [facility] Urine glucose measurement by automated test strip (mass/volume)on 02-11-2019 Glucose Auto test strip (U) [Mass/Vol] Normal mg/dL Normal [facility] Urine hemoglobin detection b y automated test stripon 02-11-2019 Hemoglobin Auto test strip Ql (U) 2+ Negative [facility] Urine human chorionic gonado tropin (hCG) detection by immunoassayon 02-11-2019 HCG ( test) Ql (U) Negative Negative [facility] Urine ketones measurement by automated test strip (mass/volume)on 02-11-2019 Ketones (U) [Mass/Vol] Negative Negative [facility] Urine leukocyte esterase det ection by automated test stripon 02-11-2019 Leukocyte esterase Auto test strip Ql (U) Negative Negative [facility] Urine nitrite detection by t est stripon 02-11-2019 Nitrite Ql (U) Negative Negative [facility] Urine pH measurement by auto mated test stripon 02-11-2019 pH (U) 5.0 [pH] 5.0-9.0 [facility] Urine protein measurement by automated test strip (mass/volume)on 02-11-2019 Protein (U) [Mass/Vol] Negative Negative [facility] Urine total bilirubin detect ion by test stripon 02-11-2019 Bilirubin Ql (U) Negative Negative [facility] Urine urobilinogen measureme nt by automated test strip (mass/volume)on 02-11-2019 Urobilinogen (U) [Mass/Vol] Normal mg/dL Normal [facility] Vital Signs Date Time Vital Sign Value Performing Clinician Facility 05-22-2024 14:37-0500 Body height 165.1 cm Corrine MOSELEY Work Phone: [facility] 05-22-2024 14:37-0500 Body mass index (BMI) [Ratio] 34.95 kg/m2 Corrine MOSELEY Work Phone: [facility] 05-22-2024 14:37-0500 Body temperature 97.39 [degF] Corrine MOSELEY Work Phone: [facility] 05-22-2024 14:37-0500 Body weight 95.25 kg Corrine MOSELEY Work Phone: [facility] 05-22-2024 14:37-0500 Diastolic blood pressure 78 mm[Hg] Corrine MOSELEY Work Phone: [facility] 05-22-2024 14:37-0500 Heart rate 87 /min Corrine MOSELEY Work Phone: [facility] 05-22-2024 14:37-0500 SaO2% (BldA) [Mass fraction] 98 % Corrine MOSELEY Work Phone: [facility] 05-22-2024 14:37-0500 Systolic blood pressure 118 mm[Hg] Corrine Ambrosio PA Work Phone: [facility] 02-02-2024 18:37-0400 Body height 165.1 cm [facility] 02-02-2024 18:37-0400 Body mass index (BMI) [Ratio] 38.2 kg/m2 [facility] 02-02-2024 18:37-0400 Body temperature 98.7 [degF] [facility] 02-02-2024 18:37-0400 Body weight 104.32 kg [facility] 02-02-2024 18:37-0400 Diastolic blood pressure 67 mm[Hg] [facility] 02-02-2024 18:37-0400 Heart rate 85 /min [facility] 02-02-2024 18:37-0400 Respiratory rate 18 /min [facility] 02-02-2024 18:37-0400 SaO2% (BldA) [Mass fraction] 98 % [facility] 02-02-2024 18:37-0400 Systolic blood pressure 112 mm[Hg] [facility] 01-12-2024 15:45-0400 Body temperature 98.01 [degF] Summer Workman PA Work Phone: [facility] 01-12-2024 15:45-0400 Diastolic blood pressure 72 mm[Hg] Summer Workman PA Work Phone: [facility] 01-12-2024 15:45-0400 Heart rate 80 /min Summer Workman PA Work Phone: [facility] 01-12-2024 15:45-0400 SaO2% (BldA) [Mass fraction] 99 % Summer Workman PA Work Phone: [facility] 01-12-2024 15:45-0400 Systolic blood pressure 120 mm[Hg] Summer Workman PA Work Phone: [facility] 02-11-2019 13:45-0400 BP Diastolic 61 mm[Hg] Gabino Prieto [facility] 02-11-2019 13:45-0400 BP Systolic 105 mm[Hg] G. Kaftan [facility] 02-11-2019 13:45-0400 Pulse (Heart Rate) 74 /min Gabino [facility] 02-11-2019 13:45-0400 Pulse Oximetry 100 % Gabino [facility] 02-11-2019 13:45-0400 Respiratory Rate 19 /min Gabino [facility] 02-11-2019 11:03-0400 BMI (Body Mass Index) 25.7 kg/m2 Gabino [facility] 02-11-2019 11:03-0400 Body Temperature 97.7 [degF] Gabino [facility] 02-11-2019 11:03-0400 Body weight 70.3 kg Gabino [facility] 02-11-2019 11:03-0400 Height 165.1 cm Gabino [facility] Encounters Encounter Date Encounter Type Care Provider Facility Start: 05-22-2024 End: 05-22-2024 ambulatory CORRINE AMBROSIO Not Available Start: 05-22-2024 End: 05-22-2024 Office outpatient visit 15 minutes Corrine MOSELEY Work Phone: [phone] Comment on above: Paronychia of great toe of right foot (Primary Dx); Toenail fungus Start: 05-22-2024 End: 05-22-2024 Bamboo flowsheet Corrine MOSELEY Work Phone: [facility] Start: 05-22-2024 End: 05-22-2024 Bamboo flowsheet Corrine MOSELEY Work Phone: [facility] Start: 02-02-2024 End: 02-02-2024 ambulatory [facility] Work Phone: Start: 02-02-2024 End: 02-02-2024 Patient encounter procedure [facility] Work Phone: Start: 01-12-2024 End: 01-12-2024 ambulatory SUMMER M WORKMAN Not Available Start: 01-12-2024 End: 01-12-2024 Office outpatient visit 15 minutes Summer Ventura Shields LORELEI Work Phone: [facility] Comment on above: Viral syndrome (Prim abigail Dx) Start: 06-22-2022 End: 06-23-[address] IZABEL GONZALES Facility:[facility] Start: 10-09-2021 End: 10-09-[address] IZABEL GONZALES Facility:[facility] Start: 10-07-2021 Encounter for other preprocedural examination DR IZABEL GONZALES [facility] Start: 10-06-[address] IZABEL GONZALES Facility [...] 02-11-2019 CT abdomen pelvis wo con Gabino Prieto Plan of Treatment Date Care Activity Detail Author Start: 08-03-2024 End: 08-03-2024 Patient encounter procedure 08/03/2024 8:30 AM EDT Office Visit [facility] [address] [place] [id number] Izabel Gonzales, [address] [place] [address] [facility] Start: 05-30-2024 Screening for malign ant neoplasm of cervix [facility] Start: 01-23-2024 Influenza vaccination Influenza Vacc ine (#1) [facility] Start: 2010 Screening for malign ant neoplasm of cervix Pap Smear [facility] Patient Education Kidney Stones (ED) How to Strain Your Urine (ED) [facility] Patient referral [facility] Immunizations Immunization Date Immunization Notes Care Provider Nancy garaymai 11-19-2014 tetanus toxoid, redu sissy diphtheria toxoid, and acellular pertussis vaccine, adsorbed Tung Shields PA Work Phone: [facility] Healthcare Payers Date Payer Category Payer Medicaid [id number] 2022 Medicaid [id number] 1989 Unknown [id number] 2.16.84 [id number] 1989 Unknown [id number] 2.16.84 [id number] 1989 Unknown [id number] 2.16.84 0.1.239126.3.579.2.593 1989 Unknown [id number] 2.16.84 0.1.710914.3.579.2.593 1989 Unknown [id number] 2.16.84 0.1.668270.3.579.2.593 1989 Unknown [id number] 2.16.84 0.1.529105.3.579.2.593 1989 Unknown [id number] 2.16.84 0.1.533281.3.579.2.593 1989 Unknown [id number] 2.16.84 0.1.447901.3.579.2.593 1989 Unknown [id number] 2.16.84 0.1.368161.3.579.2.1259 1989 Unknown [id number] 2.16.84 0.1.682664.3.579.2.1259 1959 Unknown [id number] 1959 Unknown [id number] Self-pay Self Pay [id number] Unknown Self Pay [id number] Unknown [employer] BC/BS [id number] Unknown Insurance No Card [id number] Social History Date Type Detail Facility Start: 02-11-2019 Tobacco smoking stat us [facility] Never smoked tobacco (finding) [facility] Start: 1990 Sex Assigned At Female F [facility] Start: 12-23-2022 End: 02-02-2024 Tobacco smoking status NHIS Ex-smoker (finding) [facility] History of tobacco use Current smoker [facility] History of tobacco use Cigarette Smoker [facility] Start: 12-23-2022 Tobacco use and exposure Smokeless tobacco non-user [facility] Start: 01-12-2024 End: 05-22-2024 Alcoholic beverage intake Lifetime non-drinker (finding) [facility] Start: 12-23-2022 End: 05-22-2024 History of Social function [facility] Start: 12-23-2022 End: 05-22-2024 Tobacco use panel [facility] Start: 12-23-2022 Alcohol Comment Caffeine: > 4 cups/day soda [facility] Start: 1990 Sex assigned at Not on file [facility] Goals Date Patient Goal Desired Activity /State History of Present illness Narrative 05-22-2024 LORELEI Crockett - 05/22/2024 2:20 PM EST Note Date & Type Note Facility 05-22-2024 History of Presen t illness Narrative Images from the original note were not included. Subjective Patient ID: Juaquin Armstrong is a 33 y.o. female who presents for Follow-up (Pt. States she has an ingrown toe nail and she pulled the ingrown toe nail out. Pt states that she thinks the area is infected now. Pt was also wondering if she can get something for the yellowing of her toenails as well. ). Toe Pain There was no injury mechanism. The pain is present in the right toes. The quality of the pain is described as aching. Pain severity now: mild to moderate. The pain has been Constant since onset. Pertinent negatives include no loss of motion, loss of sensation, numbness or tingling. She reports no foreign bodies present. The symptoms are aggravated by weight bearing and palpation. She has tried nothing for the symptoms. Review of Systems Constitutional: Negative for chills and fever. Respiratory: Negative for shortness of breath. Cardiovascular: Negative for chest pain. Gastrointestinal: Negative for diarrhea, nausea and vomiting. Musculoskeletal: Negative for myalgias. Skin: Negative for rash. Neurological: Negative for tingling and numbness. All other systems reviewed and are negative. Objective Visit Vitals BP 118/78 Pulse 87 Temp 97.4 F Ht 5' 5 Wt 210 lb SpO2 98% BMI 34.95 kg/m Smoking Status Former BSA 2.09 m Physical Exam Constitutional: General: She is not in acute distress. Appearance: Normal appearance. HENT: Head: Normocephalic and atraumatic. Mouth/Throat: Mouth: Mucous membranes are moist. Cardiovascular: Rate and Rhythm: Normal rate and regular rhythm. Pulses: Normal pulses. Heart sounds: No murmur heard. No friction rub. No gallop. Pulmonary: Effort: No respiratory distress. Breath sounds: Normal breath sounds. No wheezing, rhonchi or rales. Feet: Right foot: Skin integrity: Erythema and warmth present. Toenail Condition: Right toenails are ingrown. Fungal disease present. Skin: General: Skin is warm and dry. Findings: No rash. Neurological: General: No focal deficit present. Mental Status: She is alert and oriented to person, place, and time. Psychiatric: Mood and Affect: Mood normal. Behavior: Behavior normal. Judgment: Judgment normal. Assessment/Plan Diagnoses and all orders for this visit: Paronychia of great toe of right foot - cephalexin (Keflex) 500 MG capsule; Take 1 capsule (500 mg) by mouth in the morning and 1 capsule (500 mg) in the evening and 1 capsule (500 mg) before bedtime. Do all this for 10 days. Toenail fungus - ciclopirox (Penlac) 8 % solution; Apply topically at bedtime Take medication(s) as prescribed. Medications were prescribed based on Up To Date empiric therapy recommendations. Discussed side effects of medication(s). If persistent or worsening with any systemic symptoms (fever, chills, myalgia, etc.), report to the ER. Discussed potential serious complications and s/s of worsening infection. All questions answered. Call the office with any other questions or concerns. Pt verbalized understanding. documented in this encounter [facility] History of Present illness Narrative 01-12-2024 LORELEI Whaley - 01/12/2024 3:30 PM EDT Note Date & Type Note Facility 01-12-2024 History of Presen t illness Narrative HPI: Historian of HPI: patient Juaquin Armstrong is a 33 y.o. female who presents today to the Urgent Care with the following complaints and denials which have been present for 2 day(s). Pt also c/o nausea and did vomit x1 last night and loose stools x4-5 today. Non-bloody, has had 5 BM today. Denies any recent medication changes or new meds, fevers, chills, myalgias, blood in vomit. Admits nasal congestion. Denies cough, sob, sore throat, wheezing. Pt denies current /. C/O Denies Symptom Comments [] [x] Runny Nose [] [x] Difficulty Swallowing [] [x] Sore Throat [] [x] Cough [] [x] Ear Pain [] [x] Fever [] [x] Chills [x] [] Nasal Congestion [] [x] Myalgia [x] [] Sinus Pain [x] [] Sinus Pressure Additional Comments: pt has not taken any OTC medications Allergies Allergen Reactions Levofloxacin Hives Current Outpatient Medications Medication Instructions fluticasone (Flonase) 50 MCG/ACT nasal spray USE 1 - 2 SPRAYS IN EACH NOSTRIL ONCE A DAY NEEDED fluticasone (Flonase) 50 MCG/ACT nasal spray USE 1 - 2 SPRAYS IN EACH NOSTRIL ONCE A DAY NEEDED Visit Vitals BP 120/72 Pulse 80 Temp 98 F SpO2 99% Smoking Status Former ROS: A complete system ROS was performed and negative aside from the pertinent positives noted in the HPI and PE. IH Testing: Physical Exam General Examination: alert, oriented, normal affect, well-appearing, in no acute distress, well developed, well nourished. Head: normocephalic, atraumatic Eyes: sclera non-icteric Ears: auditory canal clear, tympanic membrane intact, clear Nose: Slight congestion noted Oral Cavity: no lesions, mucosa moist Throat: clear, symmetrical rise of soft palate and uvula, no erythema or exudate Lymph Nodes: no cervical adenopathy Heart: regular rate and rhythm, S1, S2 normal Lungs: clear to auscultation bilaterally. No wheezes, rales, rhonchi. Abd: normoactive bowel sounds, soft, non-tender, no HSM, no guarding or rigidity, no palpable masses, negative rebound tenderness Extremities: no edema, no cyanosis Psych: alert, oriented, cognitive function intact, cooperative with exam. Assessment/Plan 1. Viral syndrome Discussed diagnosis and treatment, suspect viral in nature. Increase clear liquids, pedialyte, eat small meals as tolerated, BRAT diet, OTC Tylenol as needed. Patient advised to return to for immediate re-evaluation if symptoms worsen, change, or do not improve. Patient advised to follow-up with PCP in 3-5 days. All questions/concerns addressed. Patient voiced understanding and agreement with the plan. covid swab in house negative. documented in this encounter [facility] Clinical Note 10-09-2021 Note Date & Type Note Facility 10-09-2021 Note OPERATIVE NOTE OPERATION DATE: 10/09/2021 PROCEDURE: Juhi endometrial ablation with hysteroscopy. PREOPERATIVE DIAGNOSIS: Menorrhagia. POSTOPERATIVE DIAGNOSIS: Menorrhagia. ANESTHESIA: General. SURGEON: Izabel Gonzales M.D. PHONE TECHNICIAN: None. FINDINGS: Normal appearing endometrium. Both ostia [...] Patient taken to recovery in stable condition. [facility] Signed and Approved by: DR IZABEL GONZALES . 10/13/2021 07:35:00 [facility] Evaluation note Note Date & Type Note Facility Evaluation note Diagnosis Onset Date COVID acute Contact with and (suspected) exposure to covid-19 noneactive Sore throat noneactive [facility] Work Phone: Evaluation note Note Date & Type Note Facility Evaluation note Diagnosis Viral syndrome- Primary Unspecified viral infection, in conditions classified elsewhere and of unspecified site documented in this encounter [facility] Healthcare Evaluation note Note Date & Type Note Facility Evaluation note Diagnosis Paronychia of great toe of right foot- Primary Toenail fungus documented in this encounter [facility] Advance Directives No Advanced Directives Records Found Advance Directive Response Recorded Date/ Time Advance [...] pital DATE CREATED AUTHOR AUTHOR'S ORGANIZ ATION 05/24/2024 [facility] EPIC Care Teams (unrecognized sec tion and content) Team Status: Active Member Role Status Dates Gabino Prieto DO Primary Care Provider Active Team Status: Inactive Member Role Status Dates Gabino Prieto DO Primary Care Provider Active Start: February 02, 2024 End: February 02, 2024 Hilaria LOPEZ , PHOTOGRAPHER PORTRAIT Attending Provider Active Start: February 02, 2024 End: February 02, 2024 [employer] Relationship Specialty Start Date End Date Warren Prieto DO [address] [place] [address] PCP - General Family Medicine 09/29/22 [employer] Relationship Specialty Start Date End Date Warren Prieto DO [address] [place] [address] PCP - General Family Medicine 09/29/22 [employer] Relationship Specialty Start Date End Date Warren Prieto DO [address] [place] [address] PCP - General Family Medicine 09/29/22 Goals (unrecognized section and content) Goals may be documented in a n alternate section Reason for Visit (unrecogniz ed section and content) Reason Comments Follow-up Pt. States she has a n ingrown toe nail and she pulled the ingrown toe nail out. Pt states that she thinks the area is infected now. Pt was also wondering if she can get something for the yellowing of her toenails as well. FOR RECORDS PERTAINING TO PATIENTS WHO ARE [...] BE BASED ON THE PRIMARY CLINICAL RECORDS. [facility] [employer] [facility]. provides no warranty or guarantee of the accuracy or completeness of information in this document.
[2024-07-04 20:25] VITALS: BP 119/74; PULSE 97; TEMP 37.6; O2SAT 100; BMI 33.3
[2024-07-04 20:49] LABS: Influenza Virus A Antigen Negative; Influenza Virus B Antigen Negative; Internal Control Within Normal Limits; SARS-CoV-2 Ag NEGATIVE (NEGATIVE)
[2024-07-04 22:56] VITALS: BP 109/72; PULSE 91; TEMP 37.1; O2SAT 97
--- NOTE | 2024-07-04 23:21 | XR_ITS ---
The [address] [address] Patient Name: JUAQUIN ARMSTRONG MRN: [id number] date: 1990 Sex: F Assigned Patient Location: ER Current Patient Location: Accession/Order Number: [id number] Exam Date: 07/04/2024 23:25 Report Date: 07/05/2024 00:43 At the request of: PRAVEEN QURESHI Procedure: XR chest 1V EXAM: XR chest 1V HISTORY: Cough, short of breath COMPARISON: None. TECHNIQUE: One view of the chest was obtained. FINDINGS: The cardiac silhouette is normal in size. The lungs are clear. There is no significant pneumothorax or pleural effusion. No acute osseous abnormality is seen. XR/XR chest 1V IMPRESSION: 1. No acute cardiopulmonary abnormality. Electronically authenticated by: Jeison GAR Date: 07/05/2024 00:43
--- NOTE | 2024-07-04 23:23 | ED_ITS ---
HPI - URI/Sore Throat General Chief Complaint: Upper Respiratory Infection Stated Complaint: CONGESTION, CHILLS Time Seen by Provider: 07/04/24 23:17 Source: patient Limitations: no limitations History of Present Illness HPI Narrative: 33-year-old female presents for cough and congestion. She has had the symptoms since yesterday. Her cough is dry. No fever or vomiting or diarrhea. Related Data Previous Rx's ?Medication ?Instructions ?Recorded benzonatate 100 mg capsule 100 mg PO TID PRN cough #20 caps 07/04/24 loratadine 5 mg-pseudoephedrine ER 1 tab PO Q12H PRN nasal congestion 07/04/24 120 mg tablet,extended #20 tabs release,12hr (Claritin-D 12 Hour) Allergies Allergy/AdvReac Type Severity Reaction Status Date / Time [facility] Allergy Mild Rash Verified 07/04/24 20:29 Review of Systems ROS Narrative A ten point review of systems is negative except as noted above. PFSH PFSH Social History Smoking status: Former smoker Little interest or pleasure in doing things: not at all Feeling down, depressed, or hopeless: not at all Exam Narrative Exam Narrative: Nurses note and vital signs reviewed and patient is not hypoxic. General: The patient appears in no apparent distress. Skin: Warm, dry, no pallor noted. There is no rash noted. Head: Normocephalic, atraumatic Eye: Normal conjunctiva, no drainage Ears, Nose, Mouth, and Throat: oral mucosa is moist. Nares patent. She has some nasal congestion. Cardiovascular: Regular Rate and Rhythm Respiratory: Patient is in no distress, no accessory muscle use, lungs are clear to auscultation, no wheezing, rales or rhonchi Back: non-tender GI: Soft and nontender Musculoskeletal: The patient has no evidence of calf tenderness, no pitting edema, symmetrical pulses noted bilaterally Neurological: A&O, normal speech Psychiatric: Cooperative Constitutional Vital Signs, click to edit/add: Last Vital Signs Temp 98.8 F 07/04/24 22:56 Pulse 91 H 07/04/24 22:56 Resp 18 07/04/24 22:56 BP 109/72 07/04/24 22:56 Pulse Ox 97 07/04/24 22:56 O2 Del Method Room Air 07/04/24 20:25 Course Vital Signs Vital signs: Vital Signs Temperature 99.6 F 07/04/24 20:25 Pulse Rate 97 H 07/04/24 20:25 Respiratory Rate 19 07/04/24 20:25 Blood Pressure 119/74 07/04/24 20:25 Pulse Oximetry 100 07/04/24 20:25 Oxygen Delivery Method Room Air 07/04/24 20:25 Temperature 98.8 F 07/04/24 22:56 Pulse Rate 91 H 07/04/24 22:56 Respiratory Rate 18 07/04/24 22:56 Blood Pressure 109/72 07/04/24 22:56 Pulse Oximetry 97 07/04/24 22:56 Oxygen Delivery Method Room Air 07/04/24 20:25 MDM - URI/Sore Throat MDM Narrative Medical decision making narrative: COVID and influenza test are negative. Chest x-ray my interpretation shows no infiltrates. My clinical impression is that she has a viral upper respiratory infection. Antibiotic not indicated. She will be treated symptomatically. Treatment diagnosis and follow-up were discussed with the patient. Differential Diagnosis Differential diagnosis: Likely upper respiratory infection, viral infection, influenza and other (COVID, pneumonia) Lab Data Attestation: I reviewed the patient's lab results. Labs: Lab Results 07/04/24 Range/Units 20:32 Influenza Type A Ag Negative Influenza Type B Ag Negative SARS-CoV-2 Ag (CV2AG) Negative (NEGATIVE) Imaging Data Chest x-ray: My impression: No infiltrates Discharge Plan Discharge Chief Complaint: Upper Respiratory Infection Clinical Impression: Upper respiratory infection Patient Disposition: Home, Self-Care Time of Disposition Decision: 23:40 Condition: Good Mode of Transportation: Private Vehicle Prescriptions / Home Meds: New benzonatate 100 mg capsule 100 mg PO TID PRN (Reason: cough) Qty: 20 0RF Claritin-D 12 Hour 5-120 mg tablet extended release 12 hr 1 tab PO Q12H PRN (Reason: nasal congestion) Qty: 20 0RF Print Language: Luxembourgish Instructions: Upper Respiratory Infection (ED) Referrals: Stoney DOLAN [Primary Care Provider] - 1 week
[2024-07-04] MEDS: BENZONATATE 100 MG CAPSULE PO (23:49)
== END 2024-07-04 23:51 | disposition home or self-care (01) ==
PROVIDERS: Emergency Provider Emergency Medicine; PCP Family Medicine
DX: J06.9 Acute upper respiratory infection, unspecified (principal); Z87.891 Personal history of nicotine dependence
CPT/HCPCS: 71045; 87804; 87811; 99285

== ENCOUNTER 2024-08-15 18:24 | Outpatient (REF) | payer MEDICAID, SELFPAY ==
--- OUTSIDE RECORDS SUMMARY | 2024-08-15 18:32 | XMS_ITS | CCD ---
Author Organization [facility] Care Team Providers Care Finance Broker Name Role Phone Gabino Prieto Primary Care Provider Unavaila willy GONZALES, DR PAIZ Admitting Unavailable GONZÁLEZ, DR PAIZ Attending Unavailable KASHAN, DR Stoney JAY Primary Care Unavailable GONZÁLEZ, DR PAIZ Consulting Unavailable AGUBOSIMSHILA Consulting Unavailable SERENE MARTINO Consulting Unavailable ARTIE LI Consulting Unavailable MELISSA JONES Attending Unavailable MELISSA JONES Admitting Unavailable CONNER, DR Stoney JAY Primary Care Unavailable ALEXIS, DR MALICK Rain Consulting Unavailable MELISSA JONES Consulting Unavailable GONZÁLEZ, DR PAIZ Consulting Unavailable GONZÁLEZ, DR PAIZ Admitting Unavailable KAROXANNEAN, DR Stoney JAY Primary Care Unavailable GONZÁLEZ, DR PAIZ Attending Unavailable GONZÁLEZ, DR PAIZ Admitting Unavailable GONZÁLEZ, DR PAIZ Attending Unavailable KASHAN, DR Stoney JAY Primary Care Unavailable GONZÁLEZ, DR PAIZ Consulting Unavailable VLADER, DR MALICK Rain Consulting Unavailable GONZÁLEZ, DR PAIZ Admitting Unavailable GONZÁLEZ, DR PAIZ Attending Unavailable CONNER, DR Stoney JAY Primary Care Unavailable GONZÁLEZ, DR PAIZ Consulting Unavailable ALEXIS, DR MALICK Rain Consulting Unavailable EFREN, DR BLACK Consulting Unavailable NOEMI MORGAN Attending Unavailable NOEMI MORGAN Admitting Unavailable CONNER, DR Stoney JAY Primary Care Unavailable ISHMAEL BAINS Consulting Unavailable GONZÁLEZ, DR PAIZ Attending Unavailable GONZÁLEZ, DR PAIZ Admitting Unavailable CORTNEY MAZARIEGOS Consulting Unavailable KAHSAN, DR Stoney JAY Primary Care Unavailable GONZÁLEZ, DR PAIZ Admitting Unavailable GONZÁLEZ, DR PAIZ Attending Unavailable CONNER, DR Stoney JAY Primary Care Unavailable CONNER, DR Stoney JAY Referring Unavailable GONZÁLEZ, DR PAIZ Consulting Unavailable Warren Prieto DO Primary Care Provider TUNG SHIELDS Attending Unavailable CORRINE AMBROSIO Attending Unavailable Gabino Prieto DO Primary Care Provider [phone] Wes John DO Attending Provider [phone] Gabino Pireto Primary Care Unavailable Wes John Jr Attending Unavailable Wes John Jr Admitting Unavailable Unavailable Unavailable Unavailable Allergies Allergy Classification Reported Allergen(s) Allergy Type Date of Onset Reaction(s) Facility (7 sources) levoFLOXacin; Translations: [levofloxacin] Drug Allergy 02-08-2023 [facility] (1 source) levoFLOXacin Drug Allergy 11-10-2012 [facility] Medications Current Medications Medication Drug Class(es) Dates Sig (Normalized) Sig (Original) cephalexin 500 mg oral capsule (2 sources) [...] topically at bedtime 6 mL 05/22/2024 Active Nirmatrelvir-Víctor navir (Paxlovid) 300 mg (150 mg x 2)-100 mg tablets,dose pack (4 sources) Start: 02-02-2024 Nirmatrelvir-Riton avir (Paxlovid) 300 [...] ritonavir twice daily for 5 days PO Completed/Discontinued Medications Medication Drug Class(es) Dates Sig (Normalized) Sig (Original) acetaminophen 325 mg / HYDROcodone bitartrate 5 mg oral tablet (3 sources) Opioid Agonist Start: 02-11-2019 End: 02-02-2024 take 1 tablet by mouth every four to six hours as needed for pain Hydrocodone-Aceta minophen (Baker) 5-325 mg Tablet Discontinued 1 TAB PO EVERY 4-6 HOURS as needed for Pain 7 February 11, 2019 12:00am February 02, 2024 6:33pm fluticasone propionate 0.05 mg/actuat metered dose nasal spray (10 sources) Corticosteroid Start: 02-08-2023 End: 05-22-2024 take 1-2 spray(s) nasal route once daily as needed fluticasone (Flonase) 50 MCG/ACT nasal spray Indications: Allergic rhinitis, unspecified seasonality, unspecified trigger USE 1 - 2 SPRAYS IN EACH NOSTRIL ONCE A DAY NEEDED 48 mL 1 02/08/2023 05/22/2024 Discontinued naproxen 500 mg oral tablet (3 sources) Nonsteroidal Anti-inflammatory Drug Start: 02-11-2019 End: 02-02-2024 take 1 tablet by mouth every twelve hours at mealtime Naproxen (Naprosyn) 500 mg Tablet Discontinued 500 MG PO Q12H February 11, 2019 12:00am February 02, 2024 6:33pm administer with food or milk ondansetron 4 mg disintegrating oral tablet (3 sources) Serotonin-3 Receptor Antagonist Start: 02-11-2019 End: 02-02-2024 Ondansetron 4 mg Tablet,Disintegra ting Discontinued 4 MG PO every 6 to 8 hours as needed for Nausea February 11, 2019 12:00am February 02, 2024 6:33pm tamsulosin hydrochloride 0.4 mg oral capsule (3 sources) alpha-Adrenergic Porsha Start: 02-11-2019 End: 02-02-2024 take 1 capsule by mouth once daily Tamsulosin (Flomax) 0.4 mg capsule Discontinued 0.4 MG PO Daily 7 February 11, 2019 12:00am February 02, 2024 6:32pm Problems Active Problems Problem Classification Problem Date Documented Date Episodic/Chronic Calculus of urinary tract (5 sources) Ureteric stone; Translations: [Kidney stone] 02-02-2024 Episodic Comment on above: Problem List clean-u p per request of Phys. EHR Cmte Coagulation and hemorrhagic disorders (5 sources) Thrombocytopenic [...] 02-08-2023 02-08-2023 Chronic Other upper respiratory infections (4 sources) Pharyngitis; Translations: [Acute pharyngitis, unspecified] 05-05-2023 Episodic Comment on above: Problem List clean-u p per request of Phys. EHR Cmte Skin and subcutaneous tissue infections (2 sources) Paronychia of toe of right foot; Translations: [Cellulitis of right toe] 05-22-2024 Episodic Unclassified (1 source) CONTACT W/AND (SUSP) EXPOS COVID-19; Translations: [CONTACT W/AND (SUSP) EXPOS COVID-19] Onset: 08-25-2021 Viral infection (10 sources) Disease caused by 2019-nCoV; Translations: [COVID-19] Onset: 02-08-2023 02-02-2024 Episodic Past or Other Problems Problem [...] Test Name Value Interpretation Reference Range Facility Basic Metabolic Brand w/Rfx A1 Con 08-14-2024 Anion gap [Moles/Vol] 10.7 mmol/L Normal 6.0-15.0 [facility] Comment on above: Performed By: #### E BS LIPID, EMP BMP #### [address] Calcium [Mass/Vol] 9.8 mg/dL Normal 8.6-10.3 [facility] Comment on above: Performed By: #### E BS LIPID, EMP BMP #### [facility] [address] [place] [address] [place] Chloride [Moles/Vol] 103 mmol/L Normal 98-107 [facility] Comment on above: Performed By: #### E BS LIPID, EMP BMP #### [facility] [address] [place] [address] [place] CO2 [Moles/Vol] 29.5 mmol/L Normal 21.0-31.0 [facility] Comment on above: Performed By: #### E BS LIPID, EMP BMP #### [place] [address] [place] Creatinine [Mass/Vol] 0.73 mg/dL Normal 0.60-1.20 [facility] Comment on above: Performed By: #### E BS LIPID, EMP BMP #### [place] [address] [place] GFR/1.73 sq M.predicted MDRD (S/P/Bld) [Vol rate/Area] mL/min/{1.73_m2} Normal [facility] Comment on above: Performed By: #### E BS LIPID, EMP BMP #### [place] [address] [place] Glucose [Mass/Vol] 85 mg/dL Normal 70-100 [facility] Comment on above: Performed By: #### E BS LIPID, EMP BMP #### [place] [address] [place] Potassium [Moles/Vol] 4.2 mmol/L Normal 3.5-5.1 [facility] Comment on above: Performed By: #### E BS LIPID, EMP BMP #### [place] [address] [place] Sodium [Moles/Vol] 139 mmol/L Normal 136-145 [facility] Comment on above: Performed By: #### E BS LIPID, EMP BMP #### [place] [address] [place] Urea nitrogen [Mass/Vol] 10 mg/dL Normal 7-25 [facility] Comment on above: Performed By: #### E BS LIPID, EMP BMP #### [facility] [address] Calcium [Mass/volume] in Ser um or PlasmaOrdered By: Wes John on 08-14-2024 Calcium [Mass/Vol] Calcium [Mass/volume ] in Serum or Plasma 8.6-10.3 [facility] Carbon dioxide, total [Moles /volume] in Serum or PlasmaOrdered By: Wes John on 08-14-2024 CO2 [Moles/Vol] Carbon dioxide, tota l [Moles/volume] in Serum or Plasma 21.0-31.0 [facility] Chloride [Moles/volume] in S beth or PlasmaOrdered By: Wes John on 08-14-2024 Chloride [Moles/Vol] Chloride [Moles/volume] in Serum or Plasma 98-107 [facility] Cholesterol [Mass/volume] in Serum or PlasmaOrdered By: Wes John on 08-14-2024 Cholesterol [Mass/Vol] Cholesterol [Mass/volume] in Serum or Plasma 140-200 [facility] Comment on above: Chol less than 200 m g/dl low riskChol 201-239 mg/dl borderline riskChol 240 mg/dl and greater high risk Cholesterol in HDL [Mass/vol ume] in Serum or PlasmaOrdered By: Wes John on 08-14-2024 Cholesterol in HDL [Mass/Vol] Serum or plasma high density lipoprotein (HDL) cholesterol measurement 23-92 [facility] Comment on above: HDL CHOL ATP-III CLA SSIFICATION Cardiovascular RiskHDL > or equal to 60 mg/dL LOWHDL < 40 mg/dL HIGH Cholesterol in LDL Calc [Mas s/Vol]Ordered By: Wes John on 08-14-2024 Cholesterol in LDL [Mass/Vol] Cholesterol in LDL [Mass/volume] in Serum or Plasma by calculation High 0-100 [facility] Comment on above: LDL ATP III CLASSIFI CATIONLDL less than 100 mg/dL OptimalLDL 100-129 mg/dL Near or above optimalLDL 130-159 mg/dL Borderline highLDL 160-189 mg/dL HighLDL greater than 189 mg/dL Very high Cholesterol in VLDL Calc [Ma ss/Vol]Ordered By: Wes John on 08-14-2024 Cholesterol in VLDL [Mass/Vol] Cholesterol in VLDL [Mass/volume] in Serum or Plasma by calculation [facility] Creatinine [Mass/volume] in Serum or PlasmaOrdered By: Wes John on 08-14-2024 Creatinine [Mass/Vol] Creatinine [Mass/volume] in Serum or Plasma 0.60-1.20 [facility] Glucose [Mass/volume] in Ser um or PlasmaOrdered By: Wes John on 08-14-2024 Glucose [Mass/Vol] Glucose [Mass/volume ] in Serum or Plasma 70-100 [facility] Lipid Profileon 08-14-2024 Cholesterol [Mass/Vol] 194 mg/dL Normal 140-200 [facility] Comment on above: Result Comment: Chol less than 200 mg/dl low risk Chol 201-239 mg/dl borderline risk Chol 240 mg/dl and greater high risk Performed By: #### E BS LIPID, EMP BMP #### [facility] [address] Cholesterol in HDL [Mass/Vol] 54 mg/dL Normal 23-92 [facility] Comment on above: Result Comment: HDL CHOL ATP-III CLASSIFICATION Cardiovascular Risk HDL > or equal to 60 mg/dL LOW HDL < 40 mg/dL HIGH Performed By: #### E BS LIPID, EMP BMP #### [facility] [address] Cholesterol.total/Choles terol in HDL [Mass ratio] 3.6 {ratio} Normal <5.0 [facility] Comment on above: Result Comment: PERF ORMED BY: [place] [address] PATHOLOGIST LINE MECHANIC CHARITY MENDIETA M.D. Performed By: #### E BS LIPID, EMP BMP #### [facility] [address] LDL Cholesterol,Calculated 120 mg/dL High 0-100 [facility] Comment on above: Result Comment: LDL ATP III CLASSIFICATION LDL less than 100 mg/dL Optimal LDL 100-129 mg/dL Near or above optimal LDL 130-159 mg/dL Borderline high LDL 160-189 mg/dL High LDL greater than 189 mg/dL Very high Performed By: #### E BS LIPID, EMP BMP #### [facility] [address] Triglyceride w/Reflex 101 mg/dL Normal 0-149 [facility] Comment on above: Result Comment: TRIG ATP III CLASSIFICATION TRIG less than 150 mg/dL Normal TRIG 150-199 mg/dL Borderline high TRIG 200-500 mg/dL High TRIG greater than 500 mg/dL Very high Standard traceable to the Center for Disease Conrtrol and Prevention (CDC) test method. Performed By: #### E BS LIPID, EMP BMP #### [facility] [address] VLDL CHOLESTEROL 20 mg/dL Normal [facility] Comment on above: Performed By: #### E BS LIPID, EMP BMP #### [facility] [address] No Panel InformationOrdered By: Wes John on 08-14-2024 Estimated GFR (CKD-EPI) > 60.0 mL/Min [facility] Creatinine Clearance (Chem N/A [facility] Potassium [Moles/volume] in Serum or PlasmaOrdered By: Wes John on 08-14-2024 Potassium [Moles/Vol] Potassium [Moles/volume] in Serum or Plasma 3.5-5.1 [facility] Serum or plasma anion gap de terminationOrdered By: Wes John on 08-14-2024 Anion gap [Moles/Vol] Serum or plasma an ion gap determination 6.0-15.0 [facility] Serum or plasma total choles terol/high density lipoprotein (HDL) cholesterol mass ratOrdered By: Wes John on 08-14-2024 Cholesterol.total/Choles terol in HDL [Mass ratio] Serum or plasma total cholesterol/high density lipoprotein (HDL) cholesterol mass rat <5.0 [facility] Sodium [Moles/volume] in Ser um or PlasmaOrdered By: Wes John on 08-14-2024 Sodium [Moles/Vol] Sodium [Moles/volume ] in Serum or Plasma 136-145 [facility] Triglyceride [Mass/volume] i n Serum or PlasmaOrdered By: Wes John on 08-14-2024 Triglyceride [Mass/Vol] Triglyceride [Mass/volume] in Serum or Plasma 0-149 [facility] Comment on above: TRIG ATP III CLASSIF ICATIONTRIG less than 150 mg/dL NormalTRIG 150-199 mg/dL Borderline highTRIG 200-500 mg/dL High TRIG greater than 500 mg/dL Very highStandard traceable to the Center for Disease Conrtrol and Prevention (CDC) test method. Urea nitrogen [Mass/volume] in Serum or PlasmaOrdered By: Wes John on 08-14-2024 Urea nitrogen [Mass/Vol] Urea nitrogen [Mass/volume] in Serum or Plasma 7-25 [facility] No Panel InformationOrdered By: Hilaria Shell on 02-02-2024 Quick Strep (POC) [facility] CBC AUTO DIFFon 06-22-2022 BASO # 0.0 103/ul Normal 0.0-0.1 [facility] Comment on above: Performed By: #### C BC #### [facility] [address] [place] [address] Dr. Cain Mcwilliams Basophils/100 WBC (Bld) 0.4 % Normal 0.2-2.[address] [facility] Comment on above: Performed By: #### C BC #### [facility] [address] [place] [address] Dr. Cain Mcwilliams EO # 0.1 103/ul Normal 0.0-0.7 [facility] Comment on above: Performed By: #### C BC #### [facility] [address] [address] [address] Cain Mcwilliams Eosinophils/100 WBC (Bld) 2.0 % Normal 0.9-7.0 [facility] Comment on above: Performed By: #### C BC #### [facility] [address] [address] [address] Cain Mcwilliams Erythrocyte distribution width (RBC) [Ratio] 12.8 % Normal 11.0-15.0 [facility] Comment on above: Performed By: #### C BC #### [facility] [address] [place] [address] Dr. Cain Mcwilliams Hematocrit (Bld) [Volume fraction] 40.6 % Normal 36.0-48.0 [facility] Comment on above: Performed By: #### C BC #### [facility] [address] [place] [address] Dr. Cain Mcwilliams Hemoglobin (Bld) [Mass/Vol] 14.1 g/dL Normal 12.0-16.0 [facility] Comment on above: Performed By: #### C BC #### [facility] [address] [place] [address] Dr. Cain Mcwilliams IG # 0.01 10e3/ul Normal 0.00-0.03 [facility] Comment on above: Performed By: #### C BC #### [facility] [address] [place] [address] Dr. Cain Mcwilliams IG % 0.2 % Normal 0.0-0.5 [facility] Comment on above: Performed By: #### C BC #### [facility] [address] [place] [address] Dr. Cain Mcwilliams LYMPH # 1.1 103/ul Critically low 1.2-3.8 [facility] Comment on above: Performed By: #### C BC #### [facility] [address] [place] [address] Dr. Cain Mcwilliams Lymphocytes/100 WBC (Bld) 24.6 % Normal 20.5-60.0 [facility] Comment on above: Performed By: #### C BC #### [facility] [address] [place] [address] Dr. Cain Mcwilliams MANUAL DIFF REQ NO Normal [facility] Comment on above: Performed By: #### C BC #### [facility] [address] [place] [address] Dr. Cain Mcwilliams MCH (RBC) [Entitic mass] 30.1 pg Normal 26.7-34.0 [facility] Comment on above: Performed By: #### C BC #### [facility] [address] [place] [address] Dr. Cain Mcwilliams MCHC (RBC) [Mass/Vol] 34.7 g/dL Normal 29.9-35.2 [facility] Comment on above: Performed By: #### C BC #### [facility] [address] [place] [address] Dr. Cain Mcwilliams MCV (RBC) [Entitic vol] 86.8 fL Normal 81.0-99.[address] [facility] Comment on above: Performed By: #### C BC #### [facility] [address] [place] [address] Dr. Cain Mcwilliams MONO # 0.3 103/ul Normal 0.3-0.8 [facility] Comment on above: Performed By: #### C BC #### [facility] [address] [place] [address] Dr. Cain Mcwilliams Monocytes/100 WBC (Bld) 6.5 % Normal 1.7-12.[address] [facility] Comment on above: Performed By: #### C BC #### [facility] [address] [place] [address] Dr. Cain Mcwilliams NEUT # 3.1 103/ul Normal 1.4-6.5 [facility] Comment on above: Performed By: #### C BC #### [facility] [address] [place] [address] Dr. Cain Mcwilliams Neutrophils/100 WBC (Bld) 66.3 % Normal 43.0-75.0 [facility] Comment on above: Performed By: #### C BC #### [facility] [address] [place] [address] Dr. Cain Mcwilliams Platelet mean volume (Bld) [Entitic vol] 10.9 fL Normal 9.5-13.5 [facility] Comment on above: Performed By: #### C BC #### [facility] [address] [place] [address] Dr. Cain Mcwilliams PLT 141 103/ul Critically low 150-450 [facility] Comment on above: Performed By: #### C BC #### [facility] [address] [place] [address] Dr. Cain Mcwilliams RBC 4.68 106/ul Normal 4.20-5.40 [facility] Comment on above: Performed By: #### C BC #### [facility] [address] [place] [address] Dr. Cain Mcwilliams WBC 4.6 103/ul Normal 4.0-11.0 [facility] Comment on above: Performed By: #### C BC #### [facility] [address] [place] [address] Dr. Cain Mcwilliams FREE T4on 06-22-2022 Free T4 [Mass/Vol] 0.99 ng/dL Normal 0.76-1.46 [facility] Comment on above: Performed By: #### F T4 #### [facility] [address] [place] [address] Dr. Cain Mcwilliams GLYCOHEMOGLOBIN A1Con 2022 ADA RECOMMENDATION SEE BELOW Normal [facility] Comment on above: Result Comment: ADA RECOMMENDED LIMIT 4.0 - 6.0 ADA THERAPEUTIC TARGET < 7.0 ACTION SUGGESTED > 7.0 Performed By: #### A 1C #### [facility] [address] [place] [address] Dr. Cain Mcwilliams Glucose [Mass/Vol] 97 mg/dL Normal [facility] Comment on above: Performed By: #### A 1C #### [facility] [address] [place] [address] Dr. Cain Mcwilliams HbA1c (Bld) [Mass fraction] 5.0 % Normal 4.5-6.2 [facility] Comment on above: Performed By: #### A 1C #### [facility] [address] [place] [address] Dr. Cain Mcwilliams PROTIMEon 06-22-2022 INR Coag (PPP) [Relative time] 0.95 {INR} Normal [facility] Comment on above: Performed By: #### C BC #### [facility] [address] [place] [address] Dr. Cain Mcwilliams INR GUIDELINES SEE BELOW Normal [facility] Comment on above: Result Comment: ABIODUN RED INR: 2.0 - 3.0 CONDITIONS NOT LISTED BELOW 2.5 - 3.5 FOR PROSTHETIC HEART VALVE REPLACEMENT 2.5 - 3.5 RECURRENT THROMBOSIS Performed By: #### C BC #### [facility] [address] [place] [address] Dr. Cain Mcwilliams PT Coag (PPP) [Time] 10.1 s Normal 9.0-11.6 [facility] Comment on above: Performed By: #### C BC #### [facility] [address] [place] [address] Dr. Cain Mcwilliams PTTon 06-22-2022 aPTT Coag (Bld) [Time] 29.4 s Normal 22.3-36.[address] [facility] Comment on above: Performed By: #### C BC #### [facility] [address] [place] [address] Dr. Cain Mcwilliams TSHon 06-22-2022 TSH 1.596 uIU/mL Normal 0.358-3.740 [facility] Comment on above: Performed By: #### T SH #### [facility] [address] [place] [address] Dr. Cain Mcwilliams US PELVIS AND TRANSVAGon [...] by: MALICK ESPINOZA Date: 2022-06-22 16:47 Normal [facility] CBC AUTO DIFFon 10-09-2021 BASO # 0.0 103/ul Normal 0.0-0.1 [facility] Comment on above: Performed By: #### C BC #### [facility] [address] [place] [address] Dr. Cain Mcwilliams Basophils/100 WBC (Bld) 0.4 % Normal 0.2-2.[address] [facility] Comment on above: Performed By: #### C BC #### [facility] [address] [place] [address] Dr. Cain Mcwilliams EO # 0.0 103/ul Normal 0.0-0.7 [facility] Comment on above: Performed By: #### C BC #### [facility] [address] [place] [address] Dr. Cain Mcwilliams Eosinophils/100 WBC (Bld) 0.8 % Critically low 0.9-7.0 [facility] Comment on above: Performed By: #### C BC #### [facility] [address] [place] [address] Dr. Cain Mcwilliams Erythrocyte distribution width (RBC) [Ratio] 12.8 % Normal 11.0-15.0 [facility] Comment on above: Performed By: #### C BC #### [facility] [address] [place] [address] Dr. Cain Mcwilliams Hematocrit (Bld) [Volume fraction] 41.6 % Normal 36.0-48.0 [facility] Comment on above: Performed By: #### C BC #### [facility] [address] [place] [address] Dr. Cain Mcwilliams Hemoglobin (Bld) [Mass/Vol] 13.8 g/dL Normal 12.0-16.0 [facility] Comment on above: Performed By: #### C BC #### [facility] [address] [place] [address] Dr. Cain Mcwilliams IG # 0.01 10e3/ul Normal 0.00-0.03 [facility] Comment on above: Performed By: #### C BC #### [facility] [address] [place] [address] Dr. Cain Mcwilliams IG % 0.2 % Normal 0.0-0.5 [facility] Comment on above: Performed By: #### C BC #### [facility] [address] [place] [address] Dr. Cain Mcwilliams LYMPH # 1.3 103/ul Normal 1.2-3.8 [facility] Comment on above: Performed By: #### C BC #### [facility] [address] [place] [address] Dr. Cain Mcwilliams Lymphocytes/100 WBC (Bld) 27.1 % Normal 20.5-60.0 [facility] Comment on above: Performed By: #### C BC #### [facility] [address] [place] [address] Dr. Cain Mcwilliams MANUAL DIFF REQ NO Normal [facility] Comment on above: Performed By: #### C BC #### [facility] [address] [place] [address] Dr. Cain Mcwilliams MCH (RBC) [Entitic mass] 30.5 pg Normal 26.7-34.0 [facility] Comment on above: Performed By: #### C BC #### [facility] [address] [place] [address] Dr. Cain Mcwilliams MCHC (RBC) [Mass/Vol] 33.2 g/dL Normal 29.9-35.2 [facility] Comment on above: Performed By: #### C BC #### [facility] [address] [place] [address] Dr. Cain Mcwilliams MCV (RBC) [Entitic vol] 91.8 fL Normal 81.0-99.[address] [facility] Comment on above: Performed By: #### C BC #### [facility] [address] [place] [address] Dr. Cain Mcwilliams MONO # 0.3 103/ul Normal 0.3-0.8 [facility] Comment on above: Performed By: #### C BC #### [facility] [address] [place] [address] Dr. Cain Mcwilliams Monocytes/100 WBC (Bld) 6.3 % Normal 1.7-12.0 [facility] Comment on above: Performed By: #### C BC #### [facility] [address] [place] [address] Dr. Cain Mcwilliams NEUT # 3.1 103/ul Normal 1.4-6.5 [facility] Comment on above: Performed By: #### C BC #### [facility] [address] [place] [address] Dr. Cain Mcwilliams Neutrophils/100 WBC (Bld) 65.2 % Normal 43.0-75.0 [facility] Comment on above: Performed By: #### C BC #### [facility] [address] [place] [address] Dr. Cain Mcwilliams Platelet mean volume (Bld) [Entitic vol] 11.3 fL Normal 9.5-13.5 [facility] Comment on above: Performed By: #### C BC #### [facility] [address] [place] [address] Dr. Cain Mcwilliams PLT 149 103/ul Critically low 150-450 [facility] Comment on above: Performed By: #### C BC #### [facility] [address] [place] [address] Dr. Cain Mcwilliams RBC 4.53 106/ul Normal 4.20-5.40 [facility] Comment on above: Performed By: #### C BC #### [facility] [address] [place] [address] Dr. Cain Mcwilliams WBC 4.8 103/ul Normal 4.0-11.0 [facility] Comment on above: Performed By: #### C BC #### [facility] [address] [place] [address] Dr. Cain Mcwilliams PREG QUANT HCGon 10-09-2021 HCG QUANT <1 Normal [facility] Comment on above: Performed By: #### C BC #### [facility] [address] [place] [address] Dr. Cain Mcwilliams HCG RANGE SEE BELOW Normal [facility] Comment on above: Result Comment: 5-50 0-1 WEEK 40-300 1-2 WEEKS 100-1,000 2-3 WEEKS 500-6,000 3-4 WEEKS 5,000-200,000 1-2 MONTHS 10,000-100,000 2-3 MONTHS 3,000-50,000 2ND TRIMESTER 1,000-50,000 3RD TRIMESTER Performed By: #### C BC #### [facility] [address] [address] [address] Cain Mcwilliams PAP ACOG PANEL 2: 30 to 65on 09-02-2021 . . Normal [facility] Comment on above: Result Comment: Perf ormed at: WB Performed By: #### C BC #### [facility] [address] [address] [address] Cain Mcwilliams Age Gdln ACOG Testing 30-65 [facility] Comment on above: Performed By: #### C BC #### [facility] [address] [place] [address] Dr. Cain Mcwilliams DIAGNOSIS: Comment Normal [facility] Comment on above: Result Comment: NEGA TIVE FOR INTRAEPITHELIAL LESION OR MALIGNANCY. THIS SPECIMEN WAS RESCREENED PART OF OUR CARDIOVASCULAR SURGICAL TECH PROGRAM. Performed at: WB Performed By: #### C BC #### [facility] [address] [address] [address] Cain Mcwilliams HPV Aptima Negative Normal [facility] Comment on above: Result Comment: This nucleic acid amplification test detects fourteen high-risk HPV types (16,18,31,33,35,39,45,51,52,56,58,59,66,68) without differentiation. Performed at: =G Performed By: #### C BC #### [facility] [address] [place] [address] Dr. Cain Mcwilliams Methodology: Comment Normal [facility] Comment on above: Result Comment: This liquid based ThinPrep(R) pap test was screened with the use of an image guided system. Performed at: WB Performed By: #### C BC #### [facility] [address] [place] [address] Dr. Cain Mcwilliams Note: Comment Normal [facility] Comment on above: Result Comment: The [...] WB Performed By: #### C BC #### [facility] [address] [place], [place] [address] Dr. Cain Mcwilliams Performed by: Comment Normal [facility] Comment on above: Result Comment: Martha Odonnell, [employer] (ASCP) Performed at: WB Performed By: #### C BC #### [facility] [address] [place], [place] [address] Dr. Cain Mcwilliams QC reviewed by: Comment Normal [facility] Comment on above: Result Comment: Steven Silver, Supervisory [employer] (ASCP) Performed at: WB Performed By: #### C BC #### [facility] [id number] Cain Mcwilliams Specimen adequacy: Comment Normal [facility] Comment on above: Result Comment: Sati sfactory for evaluation. Endocervical and/or squamous metaplastic cells (endocervical component) are present. Performed at: WB Performed By: #### C BC #### [facility] [address] [place], [place] [address] Dr. Cain Mcwilliams US PELVIS AND TRANSVAGon [...] MALICK ESPINOZA Date: 2021-08-30 10:29 Normal [facility] US SINGLE QUAD RT UPPERon US [...] MALICK ESPINOZA Date: 2021-08-30 10:31 Normal [facility] CBC W MANUAL DIFFon 08-25-19 22 ATYPICAL LYMPH # Normal [facility] Comment on above: Performed By: #### C RAY #### [facility] [address] [place] [address] Dr. Cain Mcwilliams ATYPICAL LYMPH % Normal [facility] Comment on above: Performed By: #### C RAY #### [facility] [address] [address] [address] Cain Mcwilliams BAND # 0.2 103/ul Normal 0.0-0.3 [facility] Comment on above: Performed By: #### C RAY #### [facility] [address] [address] [address] Cain Mcwilliams BAND % 3 % Normal 0-5 [facility] Comment on above: Performed By: #### C RAY #### [facility] [address] [address] [address] Cain Mcwilliams BASOM # 0.00 103/ul Normal 0.00-0.10 [facility] Comment on above: Performed By: #### C RAY #### [facility] [address] [place] [address] Dr. Cain Mcwilliams BASOM % 0.0 % Critically low 0.2-2.0 [facility] Comment on above: Performed By: #### C RAY #### [facility] [address] [place] [address] Dr. Cain Mcwilliams BLAST # Normal [facility] Comment on above: Performed By: #### C RAY #### [facility] [address] [place] [address] Dr. Cain Mcwilliams BLAST % Normal [facility] Comment on above: Performed By: #### C RAY #### [facility] [address] [place] [address] Dr. Cain Mcwilliams CORRECTED WBC Normal 4.0-11.0 [facility] Comment on above: Performed By: #### C RAY #### [facility] [address] [place] [address] Dr. Cain Mcwilliams EOS # 0.00 103/ul Normal 0.00-0.70 [facility] Comment on above: Performed By: #### C RAY #### [facility] [address] [place] [address] Dr. Cain Mcwilliams EOS% 0.0 % Critically low 0.9-7.0 [facility] Comment on above: Performed By: #### C RAY #### [facility] [address] [place] [address] Dr. Cain Mcwilliams HCT 44.2 % Normal 36.0-48.0 [facility] Comment on above: Performed By: #### C RAY #### [facility] [address] [place] [address] Dr. Cain Mcwilliams HGB 14.6 g/dl Normal 12.0-16.0 [facility] Comment on above: Performed By: #### C RAY #### [facility] [address] [place] [address] Dr. Cain Mcwilliams LYMPHM # 0.34 103/ul Critically low 1.20-3.80 [facility] Comment on above: Performed By: #### C RAY #### [facility] [address] [address] [address] Cain Mcwilliams LYMPHM% 5.0 % Critically low 20.5-60.0 [facility] Comment on above: Performed By: #### C RAY #### [facility] [address] [address] [address] Cain Mcwilliams MCH 30.0 pg Normal 26.7-34.0 [facility] Comment on above: Performed By: #### C RAY #### [facility] [address] [place] [address] Dr. Cain Mcwilliams MCHC 33.0 g/dl Normal 29.9-35.2 [facility] Comment on above: Performed By: #### C RAY #### [facility] [address] [place] [address] Dr. Cain Mcwilliams MCV 90.9 fL Normal 81.0-99.0 [facility] Comment on above: Performed By: #### C RAY #### [facility] [address] [place] [address] Dr. Cain Mcwilliams METAMYELOCYTE # Normal [facility] Comment on above: Performed By: #### C RAY #### [facility] [address] [place] [address] Dr. Cain Mcwilliams METAMYELOCYTE % Normal [facility] Comment on above: Performed By: #### C RAY #### [facility] [address] [place] [address] Dr. Cain Mcwilliams MONOM# 0.21 103/ul Critically low 0.30-0.80 [facility] Comment on above: Performed By: #### C RAY #### [facility] [address] [place] [address] Dr. Cain Mcwilliams MONOM% 3.0 % Normal 1.7-12.0 [facility] Comment on above: Performed By: #### C RAY #### [facility] [address] [place] [address] Dr. Cain Mcwilliams MPV 11.3 fL Normal 9.5-13.5 [facility] Comment on above: Performed By: #### C RAY #### [facility] [address] [place] [address] Dr. Cain Mcwilliams MYELOCYTE # Normal [facility] Comment on above: Performed By: #### C RAY #### [facility] [address] [address] [address] Cain Mcwilliams MYELOCYTE % Normal [facility] Comment on above: Performed By: #### C RAY #### [facility] [address] [place] [address] Dr. Cain Mcwilliams NRBC Normal [facility] Comment on above: Performed By: #### C RAY #### [facility] [address] [place] [address] Dr. Cain Mcwilliams PLT 153 103/ul Normal 150-450 [facility] Comment on above: Performed By: #### C RAY #### [facility] [address] [place] [address] Dr. Cain Mcwilliams RBC 4.86 106/ul Normal 4.20-5.40 [facility] Comment on above: Performed By: #### C RAY #### [facility] [address] [place] [address] Dr. Cain Mcwilliams RDW 12.5 % Normal 11.0-15.0 [facility] Comment on above: Performed By: #### C RAY #### [facility] [address] [place] [address] Dr. Cain Mcwilliams SEG # 6.14 103/ul Normal 1.40-6.50 [facility] Comment on above: Performed By: #### C RAY #### [facility] [address] [place] [address] Dr. Cain Mcwilliams SEG % 89.0 % Critically high 43.0-75.0 [facility] Comment on above: Performed By: #### C RAY #### [facility] [address] [place], [place] [address] Dr. Cain Mcwilliams WBC 6.9 103/ul Normal 4.0-11.0 [facility] Comment on above: Performed By: #### C [facility] #### [facility] [address] [place], [place] [address] ABD/PELV W CONon [...] ISHMAEL BAINS Date: 2021-08-24 17:39 Normal [facility] CULTURE BLOODon 08-24-2021 Microscopic examination of blood, culture Culture Observations: No growth at 5 days. Normal [facility] Comment on above: Performed By: #### C BC #### [facility] [address] [place], [place] [address] Dr. Cain Mcwilliams Microscopic examination of blood, culture Culture Observations: No growth at 5 days Normal [facility] Comment on above: Performed By: #### C BC #### [facility] [address] [place], [place] [address] Dr. Cain Mcwilliams [facility]on SARS-CoV-2 (COVID-19) RNA DANIELLE+probe Ql (Unsp spec) Not detected Normal NOT DETECTED [facility] Comment on above: Result Comment: When [...] this test is supported by the Director [employer] of Health and Human Service's declaration that [...] used). Performed By: #### C VDTBH #### [facility] [address] [place], [place] [address] Dr. Cain Mcwilliams ER URINE PROFILEon 2 Bilirubin Ql (U) Negative Normal NEGATIVE [facility] Comment on above: Performed By: #### C BC #### [facility] [address] [place] [address] [address] [address] Cain Mcwilliams Clarity (U) SL CLOUDY Abnormal CLEAR [facility] Comment on above: Performed By: #### C BC #### [facility] [address] [place] [address] Dr. Cain Mcwilliams Color (U) YELLOW Normal YELLOW [facility] Comment on above: Performed By: #### C BC #### [facility] [address] [place] [address] Dr. Cain MANE A micrscopic examination will be performed if indicated. Normal [facility] Comment on above: Performed By: #### C BC #### [facility] [address] [place] [address] Dr. Cain Mcwilliams Glucose Ql (U) Negative Normal NEGATIVE [facility] Comment on above: Performed By: #### C BC #### [facility] [address] [place] [address] Dr. Cain Mcwilliams Hemoglobin Ql (U) Negative Normal NEGATIVE [facility] Comment on above: Performed By: #### C BC #### [facility] [address] [place] [address] Dr. Cain Mcwilliams Ketones Ql (U) Negative Normal NEGATIVE [facility] Comment on above: Performed By: #### C BC #### [facility] [address] [place] [address] Dr. Cain Mcwilliams LEUKOCYTES Negative Normal NEGATIVE [facility] Comment on above: Performed By: #### C BC #### [facility] [address] [place] [address] Dr. Cain Mcwilliams Nitrite Ql (U) Negative Normal NEGATIVE [facility] Comment on above: Performed By: #### C BC #### [facility] [address] [place] [address] Dr. Cain Mcwilliams pH (U) 5.5 [pH] Normal 5-9 [facility] Comment on above: Performed By: #### C BC #### [facility] [address] [place] [address] Dr. Cain Mcwilliams SPEC GRAVITY 1.025 Normal 1.005-<=1.02 5 [facility] Comment on above: Performed By: #### C BC #### [facility] [address] [place] [address] Dr. Cain Mcwilliams UA PROTEIN Negative Normal NEGATIVE/ TRACE [facility] Comment on above: Performed By: #### C BC #### [facility] [address] [place] [address] Dr. Cain Mcwilliams UR MICRO IND NOT INDICATED Normal [facility] Comment on above: Performed By: #### C BC #### [facility] [address] [place] [address] Dr. Cain Mcwilliams Urobilinogen Qn (U) 0.2 {Claire'U}/dL Normal 0.2 - 1. 0 [facility] Comment on above: Performed By: #### C BC #### [facility] [address] [place] [address] Dr. Cain Mcwilliams LACTATE/LACTIC ACIDon 2021 Lactate [Moles/Vol] 2.1 mmol/L Critically high 0.7-2.0 [facility] Comment on above: Performed By: #### L ACT #### [facility] [address] [place] [address] Dr. Cain Mcwilliams LIPASEon 08-24-2021 Lipase [Catalytic activity/Vol] 102.0 U/L Normal 23.0-300.0 [facility] Comment on above: Performed By: #### C MP, LIPA #### [facility] [address] [place] [address] Dr. Cain Mcwilliams PREG HCG QUALon 08-24-2021 , QUAL Negative Normal NEGATIVE [facility] Comment on above: Performed By: #### C BC #### [facility] [address] [place] [address] Dr. Cain Mcwilliams PROF 14(COMP METB)on 022 Albumin [Mass/Vol] 3.7 g/dL Normal 3.4-5.0 [facility] Comment on above: Performed By: #### C MP, LIPA #### [facility] [address] [place] [address] Dr. Cain Mcwilliams Albumin/Globulin [Mass ratio] 1.1 {ratio} Normal [facility] Comment on above: Performed By: #### C MP, LIPA #### [facility] [address] [address] [address] Cain Mcwilliams ALP [Catalytic activity/Vol] 103 U/L Normal 46-116 [facility] Comment on above: Performed By: #### C MP, LIPA #### [facility] [address] [address] [address] Cain Mcwilliams ALT [Catalytic activity/Vol] 18 U/L Normal 14-59 [facility] Comment on above: Performed By: #### C MP, LIPA #### [facility] [address] [address] [address] Cain Mcwilliams Anion gap [Moles/Vol] 15.3 mmol/L Normal [facility] Comment on above: Performed By: #### C MP, LIPA #### [facility] [address] [address] [address] Cain Mcwilliams AST [Catalytic activity/Vol] 13 U/L Critically low 15-37 [facility] Comment on above: Performed By: #### C MP, LIPA #### [facility] [address] [address] [address] Cain Mcwilliams Bilirubin [Mass/Vol] 0.7 mg/dL Normal 0.2-1.3 [facility] Comment on above: Performed By: #### C MP, LIPA #### [facility] [address] [address] [address] Cain Mcwilliams Calcium [Mass/Vol] 8.3 mg/dL Critically low 8.5-10.[address] [facility] Comment on above: Performed By: #### C MP, LIPA #### [facility] [address] [address] [address] Cain Mcwilliams Chloride [Moles/Vol] 102 mmol/L Normal 98-107 [facility] Comment on above: Performed By: #### C MP, LIPA #### [facility] [address] [address] [address] Cain Mcwilliams CO2 [Moles/Vol] 22.2 mmol/L Normal 22.0-30.0 [facility] Comment on above: Performed By: #### C MP, LIPA #### [facility] [address] [address] [address] Cain Mcwilliams Creatinine [Mass/Vol] 0.93 mg/dL Normal 0.52-1.04 [facility] Comment on above: Performed By: #### C MP, LIPA #### [facility] [address] [address] [address] Cain Mcwilliams EGFR-AF DOMINICAN >60 Normal >=60 [facility] Comment on above: Performed By: #### C MP, LIPA #### [facility] [address] [address] [address] Cain Mcwilliams EGFR-NON AF DOMINICAN >60 Normal >=60 [facility] Comment on above: Performed By: #### C MP, LIPA #### [facility] [address] [address] [address] Cain Mcwilliams Globulin (S) [Mass/Vol] 3.5 g/dL Normal [facility] Comment on above: Performed By: #### C MP, LIPA #### [facility] [address] [address] [address] Cain Mcwilliams Glucose [Mass/Vol] 108 mg/dL Critically high 74-[address] [facility] Comment on above: Performed By: #### C MP, LIPA #### [facility] [address] [address] [address] Cain Mcwilliams Potassium [Moles/Vol] 3.5 mmol/L Normal 3.4-5.0 [facility] Comment on above: Performed By: #### C MP, LIPA #### [facility] [address] [address] [address] Cain Mcwilliams Protein [Mass/Vol] 7.2 g/dL Normal 6.1-8.2 [facility] Comment on above: Performed By: #### C MP, LIPA #### [facility] [address] [address] [address] Cain Mcwilliams Sodium [Moles/Vol] 136 mmol/L Critically low 137-145 [facility] Comment on above: Performed By: #### C MP, LIPA #### [facility] [address] [address] [address] Cain Mcwilliams Urea nitrogen [Mass/Vol] 11.0 mg/dL Normal 7.0-18.0 [facility] Comment on above: Performed By: #### C MP, LIPA #### [facility] [address] [address] [address] Cain Mcwilliams Urea nitrogen/Creatinine [Mass ratio] 11.8 mg/mg Normal [facility] Comment on above: Performed By: #### C MP, LIPA #### [facility] [address] [address] [address] Cain Mcwilliams Automated basophil %on 02-11 Basophils/100 WBC (Bld) 0.4 % F [facility] Automated basophil counton 0 02-11-2019 Basophils (Bld) [#/Vol] 0.0 10*3/uL 0.0-0.2 [facility] Automated blood lymphocyte c ount (number/volume)on 02-11-2019 Lymphocytes (Bld) [#/Vol] 0.8 10*3/uL 1.00-4.8 [facility] Automated blood lymphocyte c ount as percentage of total leukocyteson 02-11-2019 Lymphocytes/100 WBC (Bld) 21.0 % [facility] Automated blood monocyte cou nton 02-11-2019 Monocytes (Bld) [#/Vol] 0.2 10*3/uL 0.0-0.8 [facility] Automated blood platelet cou nt (count/volume)on 02-11-2019 Platelets (Bld) [#/Vol] 141 10*3/uL 150-450 [facility] Automated blood platelet lyn n volume measurementon 02-11-2019 Platelet mean volume (Bld) [Entitic vol] 9.4 fL 6.3-10.7 [facility] Automated eosinophil %on Eosinophils/100 WBC (Bld) 1.1 % [facility] Automated eosinophil counton 02-11-2019 Eosinophils (Bld) [#/Vol] 0.0 10*3/uL 0.0-0.45 [facility] Automated erythrocyte distri bution width ratioon 02-11-2019 Erythrocyte distribution width (RBC) [Ratio] 12.4 % 11.9-15.3 [facility] Automated erythrocyte mean c orpuscular hemoglobin (mass per erythrocyte)on 02-11-2019 MCH (RBC) [Entitic mass] 30.3 pg 24.7-34.3 [facility] Automated erythrocyte mean c orpuscular hemoglobin concentration measurement (mass/volon 02-11-2019 MCHC (RBC) [Mass/Vol] 33.8 g/dL 32.0-35.0 [facility] Automated erythrocyte mean c orpuscular volumeon 02-11-2019 MCV (RBC) [Entitic vol] 89.6 fL 80-100 F [facility] Automated erythrocytes count in urine sediment (number/area)on 02-11-2019 RBC Auto (Urine sed) [#/Area] 10-19 [HPF] [facility] Automated leukocytes count i n urine sediment (number/area)on 02-11-2019 WBC Auto (Urine sed) [#/Area] 3-4 [HPF] [facility] Automated monocyte %on 02-11 Monocytes/100 WBC (Bld) 5.6 % F [facility] Automated neutrophil %on Neutrophils/100 WBC (Bld) 71.9 % [facility] Automated urine color determ inationon 02-11-2019 Color (U) Yellow Yellow [facility] Blood erythrocytes automated count (number/volume)on 02-11-2019 RBC (Bld) [#/Vol] 4.66 10*6/uL 3.60-5.00 [facility] [place] Blood hemoglobin measurement (mass/volume)on 02-11-2019 Hemoglobin (Bld) [Mass/Vol] 14.1 g/dL 11.8-15.4 [facility] Blood leukocytes automated c ount (number/volume)on 02-11-2019 WBC (Bld) [#/Vol] 3.8 10*3/uL 3.8-11.6 [facility] Blood neutrophil count by au tomated method (number/volume)on 02-11-2019 Neutrophils (Bld) [#/Vol] 2.7 10*3/uL 1.8-7.7 [facility] Estimated glomerular filtrat ion rate (GFR) non- Americanon 02-11-2019 GFR/1.73 sq M predicted among non-blacks MDRD (S/P/Bld) [Vol rate/Area] mL/min/{1.73_m2} [facility] Hematocrit [Volume Fraction] of Blood by Automated counton 02-11-2019 Hematocrit (Bld) [Volume fraction] 41.7 % 34.0-46.4 [facility] Otheron 02-11-2019 GFR/1.73 sq M.predicted MDRD (S/P/Bld) [Vol rate/Area] mL/min/{1.73_m2} [facility] Comment on above: GFR estimated refere nce range: According to KDOQI guidelines, <60 ml/min/1.73m2 is sufficient to diagnose a patient with chronic kidney disease. Nucleated RBC/100 WBC (Bld) [Ratio] 0.1 % 0-0.5 [facility] Creatinine Clearance (Chem [id number] [facility] Serum or plasma calcium kevin urement (mass/volume)on 02-11-2019 Calcium [Mass/Vol] 9.5 mg/dL 8.2-10.2 [facility] Serum or plasma chloride lyn surement (moles/volume)on 02-11-2019 Chloride [Moles/Vol] 107 mmol/L 95-114 [facility] Serum or plasma creatinine m easurement with calculation of estimated glomerular filtron 02-11-2019 Creatinine [Mass/Vol] 0.86 mg/dL 0.44-1.03 [facility] Serum or plasma glucose kevin urement (mass/volume)on 02-11-2019 Glucose [Mass/Vol] 103 mg/dL 70-100 [facility] Comment on above: ADA recommended refe rence rangeRandom Glucose Reference Range is dependent on time and content of last meal. Glucose of more than 200 mg/dL in a nonstressed, ambulatory subject supports the diagnosis of Diabetes Mellitus. Serum or plasma potassium me asurement (moles/volume)on 02-11-2019 Potassium [Moles/Vol] 3.9 mmol/L 3.5-5.1 [facility] Serum or plasma sodium measu rement (moles/volume)on 02-11-2019 Sodium [Moles/Vol] 139 mmol/L 136-146 [facility] Serum or plasma total carbon dioxide measurement (moles/volume)on 02-11-2019 CO2 [Moles/Vol] 24.6 mmol/L 22.0-30.0 [facility] Serum or plasma urea nitroge n measurement (mass/volume)on 02-11-2019 Urea nitrogen [Mass/Vol] 8 mg/dL 02-13 [facility] Specific gravity of Urine by Automated test stripon 02-11-2019 Specific gravity (U) [Rel density] 1.021 1.001-1.030 [facility] Squamous epithelial cells de tection in urine sediment by light microscopyon 02-11-2019 Epithelial cells.squamous LM Ql (Urine sed) 5-9 [HPF] [facility] Urinalysison 02-11-2019 Hyaline casts LM Ql (Urine sed) 0-8 [LPF] [facility] Urine bacteria detection by automated methodon 02-11-2019 Bacteria Auto Ql (U) None seen None Seen [facility] Urine clarity by refractomet ry automatedon 02-11-2019 Clarity Refractometry automated (U) Clear Clear [facility] Urine glucose measurement by automated test strip (mass/volume)on 02-11-2019 Glucose Auto test strip (U) [Mass/Vol] Normal mg/dL Normal [facility] Urine hemoglobin detection b y automated test stripon 02-11-2019 Hemoglobin Auto test strip Ql (U) 2+ Negative [facility] Urine human chorionic gonado tropin (hCG) detection by immunoassayon 02-11-2019 HCG ( test) Ql (U) Negative Negative [facility] Urine ketones measurement by automated test strip (mass/volume)on 02-11-2019 Ketones (U) [Mass/Vol] Negative Negative [facility] Urine leukocyte esterase det ection by automated test stripon 02-11-2019 Leukocyte esterase Auto test strip Ql (U) Negative Negative [facility] Urine nitrite detection by t est stripon 02-11-2019 Nitrite Ql (U) Negative Negative [facility] Urine pH measurement by auto mated test stripon 02-11-2019 pH (U) 5.0 [pH] 5.0-9.0 [facility] Urine protein measurement by automated test strip (mass/volume)on 02-11-2019 Protein (U) [Mass/Vol] Negative Negative [facility] Urine total bilirubin detect ion by test stripon 02-11-2019 Bilirubin Ql (U) Negative Negative [facility] Urine urobilinogen measureme nt by automated test strip (mass/volume)on 02-11-2019 Urobilinogen (U) [Mass/Vol] Normal mg/dL Normal [facility] Vital Signs Date Time Vital Sign Value Performing Clinician Facility 05-22-2024 14:37-0500 Body height 165.1 cm Corrine Ambrosio PA Work Phone: [facility] 05-22-2024 14:37-0500 Body mass index (BMI) [Ratio] 34.95 kg/m2 Corrine Ambrosio PA Work Phone: [facility] 05-22-2024 14:37-0500 Body temperature 97.39 [degF] Corrine Ambrosio PA Work Phone: [facility] 05-22-2024 14:37-0500 Body weight 95.25 kg Corrine Ambrosio PA Work Phone: [facility] 05-22-2024 14:37-0500 Diastolic blood pressure 78 mm[Hg] Corrine Ambrosio PA Work Phone: [facility] 05-22-2024 14:37-0500 Heart rate 87 /min Corrine Ambrosio PA Work Phone: [facility] 05-22-2024 14:37-0500 SaO2% (BldA) [Mass fraction] 98 % Corrine Ambrosio PA Work Phone: [facility] 05-22-2024 14:37-0500 Systolic blood pressure 118 mm[Hg] Corrine Ambrosio PA Work Phone: [facility] 02-02-2024 18:37-0400 Body height 165.1 cm [facility] 02-02-2024 18:37-0400 Body mass index (BMI) [Ratio] 38.2 kg/m2 [facility] 02-02-2024 18:37-0400 Body temperature 98.7 [degF] [facility] 02-02-2024 18:37-0400 Body weight 104.32 kg [facility] 02-02-2024 18:37-0400 Diastolic blood pressure 67 mm[Hg] [facility] 02-02-2024 18:37-0400 Heart rate 85 /min [facility] 02-02-2024 18:37-0400 Respiratory rate 18 /min [facility] 02-02-2024 18:37-0400 SaO2% (BldA) [Mass fraction] 98 % [facility] 02-02-2024 18:37-0400 Systolic blood pressure 112 mm[Hg] [facility] 01-12-2024 15:45-0400 Body temperature 98.01 [degF] Summer Workman PA Work Phone: [facility] 01-12-2024 15:45-0400 Diastolic blood pressure 72 mm[Hg] [employer] Workman PA Work Phone: [facility] 01-12-2024 15:45-0400 Heart rate 80 /min [employer] Work[employer] PA Work Phone: [facility] 01-12-2024 15:45-0400 SaO2% (BldA) [Mass fraction] 99 % [employer] Workman PA Work Phone: [facility] 01-12-2024 15:45-0400 Systolic blood pressure 120 mm[Hg] [employer] Workman PA Work Phone: [facility] 02-11-2019 13:45-0400 BP Diastolic 61 mm[Hg] Gabino Prieto [facility] 02-11-2019 13:45-0400 BP Systolic 105 mm[Hg] Gabino Prieto [facility] 02-11-2019 13:45-0400 Pulse (Heart Rate) 74 /min Gabino Prieto [facility] 02-11-2019 13:45-0400 Pulse Oximetry 100 % Gabino Prieto [facility] 02-11-2019 13:45-0400 Respiratory Rate 19 /min Gabino Prieto [facility] 02-11-2019 11:03-0400 BMI (Body Mass Index) 25.7 kg/m2 Gabino Ramachandranmarito [facility] 02-11-2019 11:03-0400 Body Temperature 97.7 [degF] Gabino Prieto [facility] 02-11-2019 11:[id number] Body weight 70.[address] [facility] 02-11-2019 11:030400 Height 165.[address] [facility] Encounters Encounter Date Encounter Type Care Provider Facility Start: 08-14-2024 End: 08-14-2024 Departed Referred Gabino Ramachandranshan DO Work Phone: [facility] [address] Work Phone: Start: 08-14-2024 End: 08-14-2024 ambulatory Gabino Jay Conner DO Work Phone: [facility] Work Phone: Start: 05-22-2024 End: 05-22-2024 ambulatory CORRINE AMBROSIO [...] [facility] 230 Start: 02-02-2024 End: 02-02-2024 ambulatory [facility] Work Phone: Start: 02-02-2024 End: 02-02-2024 Patient encounter procedure [facility] Work Phone: Start: 01-12-2024 End: 01-12-2024 ambulatory TUNG SHIELDS Not Available Start: 01-12-2024 End: 01-12-2024 Office outpatient visit 15 minutes Tung Shields PA Work Phone: [facility] Comment on above: Viral syndrome (Prim abigail Dx) Start: 06-22-2022 End: 06-23-[address] IZABEL GONZALES Facility:[facility] Start: 10-09-2021 End: 10-09-[address] IZABEL GONZALES Facility:[facility] Start: 10-07-2021 Encounter for other preprocedural examination DR IZABEL GONZALES [facility] Start: 10-06-[address] IZABEL GONZALES [...] EDT Office Visit [facility] [address] [place] [id number] Izabel Gonzales, DO [address] [place] [address] [facility] Start: 05-30-2024 Screening for malign ant neoplasm of cervix [facility] Start: 01-23-2024 Influenza vaccination Influenza Vacc ine (#1) [facility] Start: 2010 Screening for malign ant neoplasm of cervix Pap Smear [facility] Patient Education Kidney Stones (ED) How to Strain Your Urine (ED) [facility] Patient referral [facility] Immunizations Immunization Date Immunization Notes Care Provider Fa cility 11-19-2014 tetanus toxoid, redu sissy diphtheria toxoid, and acellular pertussis vaccine, adsorbed Tung MOSELEY Work Phone: [facility] Payers Date Payer Category Payer Self-pay [id number] 2022 Medicaid [id number] 2022 Medicaid [id number] 1989 Unknown [id number] 2.16.84 [id number] 1989 Unknown [id number] 2.16.84 [id number] 1989 Unknown [id number] 2.16.84 [id number] 1989 Unknown [id number] 2.16.84 [id number] 1989 Unknown [id number] 2.16.84 [id number] 1989 Unknown [id number] 2.16.84 [id number] 1989 Unknown [id number] 2.16.84 [id number] 1989 Unknown [id number] 2.16.84 0.1.345220.3.579.2.593 1989 Unknown [id number] 2.16.84 0.1.222396.3.579.2.1259 1989 Unknown [id number] 2.16.84 [id number] 1959 Unknown [id number] 1959 Unknown [id number] Unknown Self Pay [id number] Unknown [place] BC/BS [id number] Unknown Insurance No Card [id number] Unknown [id number] 2.16.8 [id number] Social History Date Type Detail Facility Start: 02-11-2019 Tobacco smoking stat us [facility] Never smoked tobacco (finding) [facility] Start: 1990 Sex Assigned At Female F [facility] Start: 12-23-2022 End: 02-02-2024 Tobacco smoking status KYIS Ex-smoker (finding) [facility] History of tobacco use Current smoker [facility] History of tobacco use Cigarette Smoker [facility] Start: 12-23-2022 Tobacco use and exposure Smokeless tobacco non-user [facility] Start: 01-12-2024 End: 05-22-2024 Alcoholic beverage intake Lifetime non-drinker (finding) [facility] Start: 12-23-2022 End: 05-22-2024 History of Social function [facility] Start: 12-23-2022 End: 05-22-2024 Tobacco use panel [facility] Start: 12-23-2022 Alcohol Comment Caffeine: > 4 cups/day soda [facility] Start: 1990 Sex assigned at Not on file [facility] Start: 08-15-2024 Sex Female (finding) [facility] Goals Date Patient Goal Desired Activity /State History of Present illness Narrative 05-22-2024 LORELEI Crockett - 05/22/2024 2:20 PM EST Note Date & Type Note Facility 05-22-2024 History of Presen t illness Narrative Images from the original note were not included. Subjective Patient ID: Farzaneh Marvin is a 33 y.o. female who presents [...] illness Narrative HPI: Historian of HPI: patient Farzaneh Marvin is a 33 y.o. female who presents [...] in house negative. documented in this encounter [facility] Clinical Note 10-09-2021 Note Date & Type Note Facility 10-09-2021 Note OPERATIVE NOTE OPERATION DATE: 10/09/2021 PROCEDURE: Juhi endometrial ablation with hysteroscopy. PREOPERATIVE DIAGNOSIS: Menorrhagia. POSTOPERATIVE DIAGNOSIS: Menorrhagia. ANESTHESIA: General. SURGEON: Izabel Gonzales M.D. WAGON WASHER: None. FINDINGS: Normal appearing endometrium. Both ostia [...] Patient taken to recovery in stable condition. [facility] Signed and Approved by: DR IZABEL GONZALES . 10/13/2021 07:35:00 [facility] Evaluation note Note Date & Type Note Facility Evaluation note Diagnosis Onset Date COVID acute Contact with and (suspected) exposure to covid-19 noneactive Sore throat noneactive [facility] Work Phone: Evaluation note Note Date & Type Note Facility Evaluation note Diagnosis Viral syndrome- Primary Unspecified viral infection, in conditions classified elsewhere and of unspecified site documented in this encounter [facility] Evaluation note Note Date & Type Note Facility Evaluation note Diagnosis Paronychia of great toe of right foot- Primary Toenail fungus documented in this encounter [facility] Evaluation note Note Date & Type Note Facility Evaluation note No assessment information availa [facility] Work Phone: Advance Directives No Advanced Directives Records Found [...] and (suspected) exposure to covid-19 Sore throat Chief Complaint Admit Date Pre Emp labs August 14, 2024 8:5 9am Assessments No Assessments Information Available Summary Purpose Family History No Family History Records FoundNo Family History Records FoundNo Family History Records Found Additional Source Comments INFORMATION SOURCE (unrecogn ized section and content) DATE CREATED AUTHOR 06/25/2022 [facility] DATE CREATED AUTHOR AUTHOR'S ORGANIZ ATION 05/24/2024 [facility] EPIC DATE CREATED AUTHOR AUTHOR'S ORGANIZ ATION 08/15/2024 [facility] Care Teams (unrecognized sec tion and content) Team Status: Active Member Role Status Dates Gabino Prieto DO Primary Care Provider Active Team Status: Inactive Member Role Status Dates Gabino Prieto DO Primary Care Provider Active Start: February 02, 2024 End: February 02, 2024 Hilaria LOPEZ APRN Attending Provider Active Start: February 02, 2024 End: February 02, 2024 Finance Broker Relationship Specialty Start Date End Date Warren Prieto DO [address] [place] [address] PCP - General Family Medicine 09/29/22 Finance Broker Relationship Specialty Start Date End Date Warren Prieto DO [address] [place] [address] PCP - General Family Medicine 09/29/22 Finance Broker Relationship Specialty Start Date End Date Warren Prieto DO [address] [place] [address] PCP - General Family Medicine 09/29/22 Team Status: Inactive Member Role Status Sisi GSantana Prieto , Primary Care Provider Active Start: August 14, 2024 End: August 14, 2024 Wes John Jr, DO Attending Provider Active S tart: August 14, 2024 End: August 14, 2024 Goals (unrecognized section and content) Goals may be documented in a n alternate sectionGoals may be documented in an alternate section Reason for Visit (unrecogniz ed [...] BE BASED ON THE PRIMARY CLINICAL RECORDS. [employer] provides no warranty or guarantee of the accuracy or completeness of information in this document.
== END 2024-08-15 18:25 | disposition home or self-care (01) ==
LOC: LAB 18:24
PROVIDERS: PCP Family Medicine; Visit Provider Obstetrics & Gynecology
DX: Z01.419 Encounter for gynecological examination (general) (routine) without abnormal findings (principal)
CPT/HCPCS: 88175

== ENCOUNTER 2024-09-05 12:05 | Outpatient (REF) | payer MEDICAID, SELFPAY ==
--- OUTSIDE RECORDS SUMMARY | 2024-09-08 12:10 | XMS_ITS | CCD ---
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 Name Role Phone Gabino Prieto Primary Care Provider Unavailmargaret GONZALES, DR PAIZ Admitting Unavailable CHRISTIAN, DR PAIZ Attending Unavailable KAROXANNEAN, DR Stoney JAY Primary Care Unavailable CHRISTIAN, DR PAIZ Consulting Unavailable AGUBOSIM, SHILA Consulting Unavailable SERENE MARTINO Consulting Unavailable ARTIE LI Consulting Unavailable MELISSA JONES Attending Unavailable MELISSA JONES Admitting Unavailable MAGDALENO, DR Stoney JAY Primary Care Unavailable ALEXIS, DR MALICK Rain Consulting Unavailable MELISSA JONES Consulting Unavailable CHRISTIAN, DR PAIZ Consulting Unavailable CHRISTIAN, DR PAIZ Admitting Unavailable KASHAN, DR Stoney JAY Primary Care Unavailable CHRISTIAN, DR PAIZ Attending Unavailable CHRISTIAN, DR PAIZ Admitting Unavailable CHRISTIAN, DR PAIZ Attending Unavailable KASHAN, DR Stoney JAY Primary Care Unavailable CHRISTIAN, DR PAIZ Consulting Unavailable ALEXIS, DR MALICK Rain Consulting Unavailable CHRISTIAN, DR PAIZ Admitting Unavailable CHRISTIAN, DR PAIZ Attending Unavailable KASHAN, DR Stoney JAY Primary Care Unavailable CHRISTIAN, DR PAIZ Consulting Unavailable ALEXIS, DR MALICK Rain Consulting Unavailable EFREN, DR BLACK Consulting Unavailable NOEMI MORGAN Attending Unavailable NOEMI MORGAN Admitting Unavailable MAGDALENO, DR Stoney JAY Primary Care Unavailable ISHMAEL BAINS Consulting Unavailable CHRISTIAN, DR PAIZ Attending Unavailable CHRISTIAN, DR PAIZ Admitting Unavailable MAZARIEGOSCORTNEY KWON Consulting Unavailable MAGDALENO, DR Stoney JAY Primary Care Unavailable CHRISTIAN, DR PAIZ Admitting Unavailable CHRISTIAN, DR PAIZ Attending Unavailable MAGDALENO, DR Stoney JAY Primary Care Unavailable DR Stoney PRIETO Referring Unavailable DR IZABEL GONZALES Consulting Unavailable Warren Prieto DO Primary Care Provider Gabino Prieto DO Primary Care Provider [phone] Wes John DO Attending Provider Gabino Prieto Primary Care Unavailable Wes John Jr Attending Unavailable Wes John Jr Admitting Unavailable TUNG SHIELDS Attending Unavailable CORRINE AMBROSIO Attending Unavailable IZABEL GONZALES Attending Unavailable CORRINE AMBROSIO Attending Unavailable IZABEL GONZALES Attending Unavailable Unavailable Unavailable Unavailable Allergies Allergy Classification Reported Allergen(s) Allergy Type Date of Onset Reaction(s) Facility (14 sources) levoFLOXacin; Translations: [levofloxacin] Drug Allergy 02-08-2023 [facility] (1 source) levoFLOXacin Drug Allergy 11-10-2012 [facility] (4 sources) levoFLOXacin Drug Allergy 08-09-2013 [facility] Medications Current Medications Medication Drug Class(es) Dates Sig (Normalized) Sig (Original) benzonatate 100 mg oral capsule (2 sources) Non-narcotic Antitussive Start: 07-05-2024 End: 08-22-2024 take 1 capsule by mouth three times daily as needed for cough benzonatate (Tessalon) 100 MG capsule TAKE 1 CAPSULE BY MOUTH 3 TIMES A DAY NEEDED FOR COUGH 07/05/2024 08/22/2024 Discontinued cephalexin 500 mg oral capsule (2 sources) [...] 10 days. 30 capsule 05/22/2024 06/01/2024 Active [facility] 5-120 MG 12 hr tablet (2 sources) Start: 07-05-2024 End: 08-22-2024 take 5-120 mg by mouth every twelve hours as needed [facility] 5-120 MG 12 hr tablet TAKE 1 TAB ORALLY EVERY 12 HOURS NEEDED FOR NASAL CONGESTION 07/05/2024 08/22/2024 Discontinued ibuprofen 200 mg oral tablet (2 sources) Nonsteroidal Anti-inflammatory Drug End: 08-22-2024 take 1 tablet by mouth every six hours as needed ibuprofen 200 MG tablet Take 200 mg by mouth every 6 (six) hours if needed 08/22/2024 Discontinued Nirmatrelvir-Riton avir (Paxlovid) 300 mg (150 mg [...] ritonavir twice daily for 5 days PO Paxlovid, 300/100, 20 x 150 MG & 10 x 100MG tablet therapy pack (2 sources) Start: 02-02-2024 End: 08-22-2024 Paxlovid, 300/100, 20 x 150 MG & 10 x 100MG tablet therapy pack TAKE 3 TABLETS TOGETHER (TWO 150 MG NIRMATRELVIR TABLETS AND ONE 100 MG RITONAVIR TABLET) BY MOUTH TWICE DAILY FOR 5 DAYS. 02/02/2024 08/22/2024 Discontinued Completed/Discontinued Medications Medication Drug Class(es) Dates Sig (Normalized) Sig (Original) acetaminophen 325 mg / HYDROcodone bitartrate 5 mg oral tablet (3 sources) Opioid Agonist Start: 02-11-2019 End: 02-02-2024 take 1 tablet by mouth every four to six hours as needed for pain Hydrocodone-Aceta minophen ([place]) 5-325 mg Tablet Discontinued 1 TAB PO EVERY 4-6 HOURS as needed for Pain 7 3 February 11, 2019 12:00am February 02, 2024 6:33pm ciclopirox 80 mg/ml topical solution (4 sources) Start: 05-22-2024 End: 08-15-2024 ciclopirox (Penlac) 8 % solution Indications: Toenail fungus Apply topically at bedtime 6 mL 05/22/2024 08/15/2024 Discontinued fluticasone propionate 0.05 mg/actuat metered dose nasal [...] mg capsule Discontinued 0.4 MG PO Daily February 11, 2019 12:00am February 02, 2024 6:32pm Problems Active Problems Problem Classification Problem Date Documented Date Episodic/Chronic Calculus of urinary tract (5 sources) Ureteric stone; Translations: [Kidney stone] 02-02-2024 Episodic Comment on above: Problem List clean-u p per request of Phys. EHR Cmte Coagulation and hemorrhagic disorders (12 sources) Thrombocytopenic disorder; Translations: [Thrombocytopenia, unspecified] Onset: 02-08-2023 02-08-2023 Chronic Immunizations and screening for infectious disease (2 sources) Encounter for screening for human papillomavirus (HPV); Translations: [Contact with or exposure to other viral diseases] Onset: 08-28-2021 02-02-2024 Episodic Menstrual disorders (19 sources) Excessive and frequent menstruation with regular cycle; Translations: [Menorrhagia] Onset: 10-07-2021 Chronic Mycoses (2 sources) Onychomycosis of toenails; Translations: [Tinea unguium] 05-22-2024 Episodic Other liver diseases (5 sources) Liver disease, unspecified; Translations: [LIVER DISEASE UNSPECIFIED] Onset: 08-30-2021 Chronic Other liver diseases (12 sources) Lesion of liver; Translations: [Liver disease, unspecified] Onset: 02-08-2023 02-08-2023 Chronic Other nutritional; endocrine; and metabolic disorders (12 sources) Obesity; Translations: [Obesity, unspecified] Onset: 02-08-2023 02-08-2023 Chronic Other upper respiratory infections (12 sources) Sinusitis; Translations: [Chronic sinusitis, unspecified] Onset: 02-08-2023 02-08-2023 Chronic Other upper respiratory infections (4 sources) Pharyngitis; Translations: [Acute pharyngitis, unspecified] 05-05-2023 Episodic Comment on above: Problem List clean-u p per request of Phys. EHR Cmte Residual codes; unclassified (2 sources) History of endometrial ablation; Translations: [Other specified postprocedural states] 08-15-2024 Episodic Skin and subcutaneous tissue infections (4 sources) Paronychia of toe of right foot; Translations: [Cellulitis of right toe] 05-22-2024 Episodic Unclassified (1 source) CONTACT W/AND (SUSP) EXPOS COVID-19; Translations: [CONTACT W/AND (SUSP) EXPOS COVID-19] Onset: 08-25-2021 Past or Other Problems Problem Classification Problem Date Documented Date Episodic/Chronic Abdominal pain (14 sources) Pelvic and perineal pain; Translations: [Unspecified abdominal pain] Onset: 08-25-2021 02-08-2023 Episodic Cancer of cervix (12 sources) Cervicovaginal cytology: Low grade squamous intraepithelial lesion; Translations: [Low grade squamous intraepithelial lesion on cytologic smear of cervix (LGSIL)] Onset: 02-08-2023 02-08-2023 Episodic Contraceptive and procreative management (1 source) Tubal ligation status; Translations: [TUBAL LIGATION STATUS] Onset: 10-14-2021 Episodic Fracture of upper limb (4 sources) Fracture of distal end of radius; Translations: [Unspecified fracture of the lower end of unspecified radius, initial encounter for closed fracture] Onset: 08-31-2013 08-22-2024 Episodic Nausea and vomiting (4 sources) Nausea [...] NICOTINE DEPEND] Onset: 10-14-2021 Episodic Viral infection (17 sources) Disease caused by 2019-nCoV; Translations: [COVID-19] Onset: 02-08-2023 02-02-2024 Episodic Results Test Name Value Interpretation Reference Range Facility IGP,APTIMA HPV,AGE GDLNon AGE GDLN ACOG TESTING Note . [facility] Comment on above: TESTS RESULT FLAG UN ITS REF RANGE LAB Clinician Provided Cytology Information Source.............Cervix;Endocervix No. of containers..01 ThinPrep Vial Age Maximino AL Paula... [id number] 01 FLAG LEGEND: L-Low Normal,H-High Normal,LL-Alert Low,HH-Alert High <-Panic Low,>-Panic High,A-Abnormal,AA-Critical Abnormal Performed at: 01 =[address] [id number] Wendy Kumar MD, HPV APTIMA Positive Abnormal Negative [facility] Comment on above: This nucleic acid am plification test detects fourteen high- risk HPV types (16,18,31,33,35,39,45,51,52,56,58,59,66,68) without differentiation. Performed at: =[address] [id number] Attending Anesthesiologist: Wendy Kumar MD, Phone: [phone] Performed at: [address] [id number] Attending Anesthesiologist: Wendy Kumar MD, Phone: [phone] IGP, APTIMA HPV, RFX 16/18,45 Note Abnormal . [facility] Comment on above: TESTS RESULT FLAG UN ITS REF RANGE LAB DIAGNOSIS: [A] 02 EPITHELIAL CELL ABNORMALITY. LOW GRADE SQUAMOUS INTRAEPITHELIAL LESION (LSIL). Recommendation: [A] 02 Suggest follow up as clinically appropriate. Specimen adequacy: 02 Satisfactory for evaluation. Endocervical and/or squamous metaplastic cells (endocervical component) are present. Performed by: 03 No Deshpande, Hand Baseball Sewer (ASCP) Electronically si... Wendy Kumar MD, Pathologist . 02 Pathologist ICD10: 02 R87.612 Note: Note 02 The Pap smear is a screening test designed to aid in the detection of premalignant and malignant conditions of the uterine cervix. It is not a diagnostic procedure and should not be used as the sole means of detecting cervical cancer. Both false-positive and false-negative reports do occur. Test Methodology: Note 02 This liquid based ThinPrep(R) pap test was screened with the use of an image guided system. HPV Genotype Reflex Note 02 Criteria not met, HPV Genotype not performed. FLAG LEGEND: L-Low Normal,H-High Normal,LL-Alert Low,HH-Alert High <-Panic Low,>-Panic High,A-Abnormal,AA-Critical Abnormal Performed at: 02 [address] [facility] [address] [phone] Wendy Kumar MD, 03 KWCYT [facility] [place] [facility] [address] [place] [address] Juaquin Calderon MD, Interpretation and review of laboratory results Abnormal [facility] BRUSH-SPATULA CERVIX ENDOCERVIX [facility] HCG ( test) Ql (U)o n 08-15-2024 Interpretation and review of laboratory results Normal [facility] Preg Test, Ur Negative Negative [facility] Basic Metabolic Brand w/Rfx A1 Con 08-14-2024 Anion gap [Moles/Vol] 10.7 mmol/L Normal 6.0-15.0 [facility] Comment on above: Performed By: #### E BS LIPID, EMP BMP #### [address] Calcium [Mass/Vol] 9.8 mg/dL Normal 8.6-10.3 [facility] Comment on above: Performed By: #### E BS LIPID, EMP BMP #### [place] [address] [place] Chloride [Moles/Vol] 103 mmol/L Normal 98-107 [facility] Comment on above: Performed By: #### E BS LIPID, EMP BMP #### [address] CO2 [Moles/Vol] 29.5 mmol/L Normal 21.0-31.0 [facility] Comment on above: Performed By: #### E BS LIPID, EMP BMP #### [address] Creatinine [Mass/Vol] 0.73 mg/dL Normal 0.60-1.20 [facility] Comment on above: Performed By: #### E BS LIPID, EMP BMP #### [place] [address] [place] GFR/1.73 sq M.predicted MDRD (S/P/Bld) [Vol rate/Area] mL/min/{1.73_m2} Normal [facility] Comment on above: Performed By: #### E BS LIPID, EMP BMP #### [place] [address] [place] Glucose [Mass/Vol] 85 mg/dL Normal 70-100 [facility] Comment on above: Performed By: #### E BS LIPID, EMP BMP #### [place] [address] [place] Potassium [Moles/Vol] 4.2 mmol/L Normal 3.5-5.1 [facility] Comment on above: Performed By: #### E BS LIPID, EMP BMP #### [address] [place] [address] [place] Sodium [Moles/Vol] 139 mmol/L Normal 136-145 [facility] Comment on above: Performed By: #### E BS LIPID, EMP BMP #### [facility] [address] [place] [address] [place] Urea nitrogen [Mass/Vol] 10 mg/dL Normal 7-25 [facility] Comment on above: Performed By: #### E BS LIPID, EMP BMP #### [facility] [address] [phone] [place] Calcium [Mass/volume] in Ser um or PlasmaOrdered By: Wes John on 08-14-2024 Calcium [Mass/Vol] Calcium [Mass/volume ] in Serum or Plasma 8.6-10.3 [facility] Carbon dioxide, total [Moles /volume] in Serum or PlasmaOrdered By: Wes John on 08-14-2024 CO2 [Moles/Vol] Carbon dioxide, tota l [Moles/volume] in Serum or Plasma 21.0-31.0 [facility] Chloride [Moles/volume] in S beth or PlasmaOrdered By: Wes John on 08-14-2024 Chloride [Moles/Vol] Chloride [Moles/volume] in Serum or Plasma 98-107 [facility] Cholesterol [Mass/volume] in Serum or PlasmaOrdered By: Wes John on 08-14-2024 Cholesterol [Mass/Vol] Cholesterol [Mass/volume] in Serum or Plasma 140-200 [facility] Comment on above: Chol less than 200 m g/dl low riskChol 201-239 mg/dl borderline riskChol 240 mg/dl and greater high risk Cholesterol in HDL [Mass/vol ume] in Serum or PlasmaOrdered By: Wes John on 08-14-2024 Cholesterol in HDL [Mass/Vol] Serum or plasma high density lipoprotein (HDL) cholesterol measurement 23- [facility] Comment on above: HDL CHOL ATP-III CLA SSIFICATION Cardiovascular RiskHDL > or equal to 60 mg/dL LOWHDL < 40 mg/dL HIGH Cholesterol in LDL Calc [Mas s/Vol]Ordered By: Wes John on 08-14-2024 Cholesterol in LDL [Mass/Vol] Cholesterol in LDL [Mass/volume] in Serum or Plasma by calculation High 0-100 [facility] Comment on above: LDL ATP III CLASSIFI CATIONLDL less than 100 mg/dL OptimalLDL 100-129 mg/dL Near or above optimalLDL 130-159 mg/dL Borderline highLDL 160-189 mg/dL HighLDL greater than 189 mg/dL Very high Cholesterol in VLDL Calc [Ma ss/Vol]Ordered By: Wes John on 08-14-2024 Cholesterol in VLDL [Mass/Vol] Cholesterol in VLDL [Mass/volume] in Serum or Plasma by calculation [facility] Creatinine [Mass/volume] in Serum or PlasmaOrdered By: Wes John on 08-14-2024 Creatinine [Mass/Vol] Creatinine [Mass/volume] in Serum or Plasma 0.60-1.20 [facility] Glucose [Mass/volume] in Ser um or PlasmaOrdered By: Wes John on 08-14-2024 Glucose [Mass/Vol] Glucose [Mass/volume ] in Serum or Plasma 70-100 [facility] Lipid Profileon 08-14-2024 Cholesterol [Mass/Vol] 194 mg/dL Normal 140-200 [facility] Comment on above: Result Comment: Chol less than 200 mg/dl low risk Chol 201-239 mg/dl borderline risk Chol 240 mg/dl and greater high risk Performed By: #### E BS LIPID, EMP BMP #### [facility] [address] [phone] [place] Cholesterol in HDL [Mass/Vol] 54 mg/dL Normal 23-92 [facility] Comment on above: Result Comment: HDL CHOL ATP-III CLASSIFICATION Cardiovascular Risk HDL > or equal to 60 mg/dL LOW HDL < 40 mg/dL HIGH Performed By: #### E BS LIPID, EMP BMP #### [facility] [address] [phone] [place] Cholesterol.total/Bethany sterol in HDL [Mass ratio] 3.6 {ratio} Normal <5.0 [facility] Comment on above: Result Comment: PERF ORMED BY: [facility] [address] [place] [address] PATHOLOGIST CELLOPHANE WORKER CHARITY MENDIETA M.D. Performed By: #### E BS LIPID, EMP BMP #### [facility] [address] LDL Cholesterol,Calculated 120 mg/dL High 0-100 [facility] Comment on above: Result Comment: LDL ATP III CLASSIFICATION LDL less than 100 mg/dL Optimal LDL 100-129 mg/dL Near or above optimal LDL 130-159 mg/dL Borderline high LDL 160-189 mg/dL High LDL greater than 189 mg/dL Very high Performed By: #### E BS LIPID, EMP BMP #### [facility] [address] Triglyceride w/Reflex 101 mg/dL Normal 0-149 [facility] Comment on above: Result Comment: TRIG ATP III CLASSIFICATION TRIG less than 150 mg/dL Normal TRIG 150-199 mg/dL Borderline high TRIG 200-500 mg/dL High TRIG greater than 500 mg/dL Very high Standard traceable to the Center for Disease Conrtrol and Prevention (CDC) test method. Performed By: #### E BS LIPID, EMP BMP #### [facility] [address] VLDL CHOLESTEROL 20 mg/dL Normal [facility] Comment on above: Performed By: #### E BS LIPID, EMP BMP #### [facility] [address] [place] [address] No Panel InformationOrdered By: Wes John on 08-14-2024 Estimated GFR (CKD-EPI) > 60.0 mL/Min [facility] Creatinine Clearance (Chem N/A [facility] Potassium [Moles/volume] in Serum or PlasmaOrdered By: Wes John on 08-14-2024 Potassium [Moles/Vol] Potassium [Moles/volume] in Serum or Plasma 3.5-5.1 [facility] Serum or plasma anion gap de terminationOrdered By: Wes John on 08-14-2024 Anion gap [Moles/Vol] Serum or plasma an ion gap determination 6.0-15.0 [facility] Serum or plasma total choles terol/high density lipoprotein (HDL) cholesterol mass ratOrdered By: Wes John on 08-14-2024 Cholesterol.total/Bethany sterol in HDL [Mass ratio] Serum or plasma total cholesterol/high density lipoprotein (HDL) cholesterol mass rat <5.0 [facility] Sodium [Moles/volume] in Ser um or PlasmaOrdered By: Wes John on 08-14-2024 Sodium [Moles/Vol] Sodium [Moles/volume ] in Serum or Plasma 136-145 [facility] Triglyceride [Mass/volume] i n Serum or PlasmaOrdered By: Wes John on 08-14-2024 Triglyceride [Mass/Vol] Triglyceride [Mass/volume] in Serum or Plasma 0-149 [facility] Comment on above: TRIG ATP III CLASSIF ICATIONTRIG less than 150 mg/dL NormalTRIG 150-199 mg/dL Borderline highTRIG 200-500 mg/dL High TRIG greater than 500 mg/dL Very highStandard traceable to the Center for Disease Conrtrol and Prevention (CDC) test method. Urea nitrogen [Mass/volume] in Serum or PlasmaOrdered By: Wes John on 08-14-2024 Urea nitrogen [Mass/Vol] Urea nitrogen [Mass/volume] in Serum or Plasma 7-25 [facility] No Panel InformationOrdered By: Hilaria Shell on 02-02-2024 Quick Strep (POC) [facility] CBC AUTO DIFFon 06-22-2022 BASO # 0.0 103/ul Normal 0.0-0.1 [facility] Comment on above: Performed By: #### C BC #### [facility] [address] [address] [address] Cain Mcwilliams Basophils/100 WBC (Bld) 0.4 % Normal 0.2-2.0 [facility] Comment on above: Performed By: #### C BC #### [facility] [address] [address] [address] Cain Mcwilliams EO # 0.1 103/ul Normal 0.0-0.7 [facility] Comment on above: Performed By: #### C BC #### [facility] [address] [address] [address] Cain Mcwilliams Eosinophils/100 WBC (Bld) 2.0 % Normal 0.9-7.0 [facility] Comment on above: Performed By: #### C BC #### [facility] [address] [place] [address] Dr. Cain Mcwilliams Erythrocyte distribution width (RBC) [Ratio] 12.8 % Normal 11.0-15.0 [facility] Comment on above: Performed By: #### C BC #### [facility] [address] [place] [address] Dr. Cain Mcwilliams Hematocrit (Bld) [Volume fraction] 40.6 % Normal 36.0-48.0 [facility] Comment on above: Performed By: #### C BC #### [facility] [address] [place] [address] Dr. Cain Mcwilliams Hemoglobin (Bld) [Mass/Vol] 14.1 g/dL Normal 12.0-16.0 [facility] Comment on above: Performed By: #### C BC #### [facility] [address] [place] [address] Dr. Cain Mcwilliams IG # 0.01 10e3/ul Normal 0.00-0.03 [facility] Comment on above: Performed By: #### C BC #### [facility] [address] [place] [address] Dr. Cain Mcwilliams IG % 0.2 % Normal 0.0-0.5 [facility] Comment on above: Performed By: #### C BC #### [facility] [address] [place] [address] Dr. Cain Mcwilliams LYMPH # 1.1 103/ul Critically low 1.2-3.8 [facility] Comment on above: Performed By: #### C BC #### [facility] [address] [place] [address] Dr. Cain Mcwilliams Lymphocytes/100 WBC (Bld) 24.6 % Normal 20.5-60.0 [facility] Comment on above: Performed By: #### C BC #### [facility] [address] [place] [address] Dr. Cain Mcwilliams MANUAL DIFF REQ NO Normal [facility] Comment on above: Performed By: #### C BC #### [facility] [address] [place] [address] Dr. Cain Mcwilliams MCH (RBC) [Entitic mass] 30.1 pg Normal 26.7-34.0 [facility] Comment on above: Performed By: #### C BC #### [facility] [address] [place] [address] Dr. Cain Mcwilliams MCHC (RBC) [Mass/Vol] 34.7 g/dL Normal 29.9-35.2 [facility] Comment on above: Performed By: #### C BC #### [facility] [address] [place] [address] Dr. Cain Mcwilliams MCV (RBC) [Entitic vol] 86.8 fL Normal 81.0-99.0 [facility] Comment on above: Performed By: #### C BC #### [facility] [address] [place] [address] Dr. Cain Mcwilliams MONO # 0.3 103/ul Normal 0.3-0.8 [facility] Comment on above: Performed By: #### C BC #### [facility] [address] [place] [address] Dr. Cain Mcwilliams Monocytes/100 WBC (Bld) 6.5 % Normal 1.7-12.0 [facility] Comment on above: Performed By: #### C BC #### [facility] [address] [place] [address] Dr. Cain Mcwilliams NEUT # 3.1 103/ul Normal 1.4-6.5 [facility] Comment on above: Performed By: #### C BC #### [facility] [address] [place] [address] Dr. Cain Mcwilliams Neutrophils/100 WBC (Bld) 66.3 % Normal 43.0-75.0 [facility] Comment on above: Performed By: #### C BC #### [facility] [address] [place] [address] Dr. Cain Mcwilliams Platelet mean volume (Bld) [Entitic vol] 10.9 fL Normal 9.5-13.5 [facility] Comment on above: Performed By: #### C BC #### [facility] [address] [address] [address] Cain Mcwilliams PLT 141 103/ul Critically low 150-450 [facility] Comment on above: Performed By: #### C BC #### [facility] [address] [address] [address] Cain Mcwilliams RBC 4.68 106/ul Normal 4.20-5.40 [facility] Comment on above: Performed By: #### C BC #### [facility] [address] [address] [address] Cain Mcwilliams WBC 4.6 103/ul Normal 4.0-11.0 [facility] Comment on above: Performed By: #### C BC #### [facility] [address] [place] [address] Dr. Cain Mcwilliams FREE T4on 06-22-2022 Free T4 [Mass/Vol] 0.99 ng/dL Normal 0.76-1.46 [facility] Comment on above: Performed By: #### F T4 #### [facility] [address] [place] [address] Dr. Cain Mcwilliams GLYCOHEMOGLOBIN A1Con 2022 ADA RECOMMENDATION SEE BELOW Normal [facility] Comment on above: Result Comment: ADA RECOMMENDED LIMIT 4.0 - 6.0 ADA THERAPEUTIC TARGET < 7.0 ACTION SUGGESTED > 7.0 Performed By: #### A 1C #### [facility] [address] [place] [address] Dr. Cain Mcwilliams Glucose [Mass/Vol] 97 mg/dL Normal [facility] Comment on above: Performed By: #### A 1C #### [facility] [address] [place] [address] Dr. Cain Mcwilliams HbA1c (Bld) [Mass fraction] 5.0 % Normal 4.5-6.2 [facility] Comment on above: Performed By: #### A 1C #### [facility] [address] [place] [address] Dr. Cain Mcwilliams PROTIMEon 06-22-2022 INR Coag (PPP) [Relative time] 0.95 {INR} Normal [facility] Comment on above: Performed By: #### C BC #### [facility] [address] [place] [address] Dr. Cain Mcwilliams INR GUIDELINES SEE BELOW Normal [facility] Comment on above: Result Comment: ABIODUN RED INR: 2.0 - 3.0 CONDITIONS NOT LISTED BELOW 2.5 - 3.5 FOR PROSTHETIC HEART VALVE REPLACEMENT 2.5 - 3.5 RECURRENT THROMBOSIS Performed By: #### C BC #### [facility] [address] [place] [address] Dr. Cain Mcwilliams PT Coag (PPP) [Time] 10.1 s Normal 9.0-11.6 [facility] Comment on above: Performed By: #### C BC #### [facility] [address] [place] [address] Dr. Cain Mcwilliams PTTon 06-22-2022 aPTT Coag (Bld) [Time] 29.4 s Normal 22.3-36.2 [facility] Comment on above: Performed By: #### C BC #### [facility] [address] [place] [address] Dr. Cain Mcwilliams TSHon 06-22-2022 TSH 1.596 uIU/mL Normal 0.358-3.[address] [facility] Comment on above: Performed By: #### T SH #### [facility] [address] [place] [address] Dr. Cain Mcwilliams US PELVIS AND TRANSVAGon [...] MALICK ESPINOZA Date: 2022-06-22 16:47 Normal [facility] CBC AUTO DIFFon 10-09-2021 BASO # 0.0 103/ul Normal 0.0-0.1 [facility] Comment on above: Performed By: #### C BC #### [facility] [address] [place] [address] Dr. Cain Mcwilliams Basophils/100 WBC (Bld) 0.4 % Normal 0.2-2.0 [facility] Comment on above: Performed By: #### C BC #### [facility] [address] [place] [address] Dr. Cain Mcwilliams EO # 0.0 103/ul Normal 0.0-0.7 [facility] Comment on above: Performed By: #### C BC #### [facility] [address] [place] [address] Dr. Cain Mcwilliams Eosinophils/100 WBC (Bld) 0.8 % Critically low 0.9-7.0 [facility] Comment on above: Performed By: #### C BC #### [facility] [address] [place] [address] Dr. Cain Mcwilliams Erythrocyte distribution width (RBC) [Ratio] 12.8 % Normal 11.0-15.0 [facility] Comment on above: Performed By: #### C BC #### [facility] [address] [place] [address] Dr. Cain Mcwilliams Hematocrit (Bld) [Volume fraction] 41.6 % Normal 36.0-48.0 [facility] Comment on above: Performed By: #### C BC #### [facility] [address] [place] [address] Dr. Cain Mcwilliams Hemoglobin (Bld) [Mass/Vol] 13.8 g/dL Normal 12.0-16.0 [facility] Comment on above: Performed By: #### C BC #### [facility] [address] [place] [address] Dr. Cain Mcwilliams IG # 0.01 10e3/ul Normal 0.00-0.03 [facility] Comment on above: Performed By: #### C BC #### [facility] [address] [place] [address] Dr. Cain Mcwilliams IG % 0.2 % Normal 0.0-0.5 [facility] Comment on above: Performed By: #### C BC #### [facility] [address] [place] [address] Dr. Cain Mcwilliams LYMPH # 1.3 103/ul Normal 1.2-3.8 [facility] Comment on above: Performed By: #### C BC #### [facility] [address] [place] [address] Dr. Cain Mcwilliams Lymphocytes/100 WBC (Bld) 27.1 % Normal 20.5-60.0 [facility] Comment on above: Performed By: #### C BC #### [facility] [address] [place] [address] Dr. Cain Mcwilliams MANUAL DIFF REQ NO Normal [facility] Comment on above: Performed By: #### C BC #### [facility] [address] [place] [address] Dr. Cain Mcwilliams MCH (RBC) [Entitic mass] 30.5 pg Normal 26.7-34.0 [facility] Comment on above: Performed By: #### C BC #### [facility] [address] [place] [address] Dr. Cain Mcwillimas MCHC (RBC) [Mass/Vol] 33.2 g/dL Normal 29.9-35.2 [facility] Comment on above: Performed By: #### C BC #### [facility] [address] [place] [address] Dr. Cain Mcwilliams MCV (RBC) [Entitic vol] 91.8 fL Normal 81.0-99.0 [facility] Comment on above: Performed By: #### C BC #### [facility] [address] [place] [address] Dr. Cain Mcwilliams MONO # 0.3 103/ul Normal 0.3-0.8 [facility] Comment on above: Performed By: #### C BC #### [facility] [address] [place] [address] Dr. Cain Mcwilliams Monocytes/100 WBC (Bld) 6.3 % Normal 1.7-12.0 [facility] Comment on above: Performed By: #### C BC #### [facility] [address] [place] [address] Dr. Cain Mcwilliams NEUT # 3.1 103/ul Normal 1.4-6.5 [facility] Comment on above: Performed By: #### C BC #### [facility] [address] [place] [address] Dr. Cain Mcwilliams Neutrophils/100 WBC (Bld) 65.2 % Normal 43.0-75.0 [facility] Comment on above: Performed By: #### C BC #### [facility] [address] [place] [address] Dr. Cain Mcwilliams Platelet mean volume (Bld) [Entitic vol] 11.3 fL Normal 9.5-13.5 [facility] Comment on above: Performed By: #### C BC #### [facility] [address] [place] [address] Dr. Cain Mcwilliams PLT 149 103/ul Critically low 150-450 [facility] Comment on above: Performed By: #### C BC #### [facility] [address] [place] [address] Dr. Cain Mcwilliams RBC 4.53 106/ul Normal 4.20-5.40 [facility] Comment on above: Performed By: #### C BC #### [facility] [address] [place] [address] Dr. Cain Mcwilliams WBC 4.8 103/ul Normal 4.0-11.0 [facility] Comment on above: Performed By: #### C BC #### [facility] [address] [place] [address] Dr. Cain Mcwilliams PREG QUANT HCGon 10-09-2021 HCG QUANT <1 Normal [facility] Comment on above: Performed By: #### C BC #### [facility] [address] [place] [address] Dr. Cain Mcwilliams HCG RANGE SEE BELOW Normal [facility] Comment on above: Result Comment: 5-50 0-1 WEEK 40-300 1-2 WEEKS 100-1,000 2-3 WEEKS 500-6,000 3-4 WEEKS 5,000-200,000 1-2 MONTHS 10,000-100,000 2-3 MONTHS 3,000-50,000 2ND TRIMESTER 1,000-50,000 3RD TRIMESTER Performed By: #### C BC #### [facility] [address] [place] [address] Dr. Cain Mcwilliams PAP ACOG PANEL 2: 30 to 65on 09-02-2021 . . Normal [facility] Comment on above: Result Comment: Perf ormed at: WB Performed By: #### C BC #### [facility] [address] [place] [address] Dr. Cain Mcwilliams Age Gdln ACOG Testing 30-65 Normal [facility] Comment on above: Performed By: #### C BC #### [facility] [address] [place] [address] Dr. Cain Mcwilliams DIAGNOSIS: Comment Normal [facility] Comment on above: Result Comment: NEGA TIVE FOR INTRAEPITHELIAL LESION OR MALIGNANCY. THIS SPECIMEN WAS RESCREENED PART OF OUR [employer] PROGRAM. Performed at: WB Performed By: #### C BC #### [facility] [address] [place] [address] Dr. Cain Mcwilliams HPV Aptima Negative Normal Negative [facility] Comment on above: Result Comment: This nucleic acid amplification test detects fourteen high-risk HPV types (16,18,31,33,35,39,45,51,52,56,58,59,66,68) without differentiation. Performed at: =G Performed By: #### C BC #### [facility] [address] [place] [address] Dr. Cain Mcwilliams Methodology: Comment Normal [facility] Comment on above: Result Comment: This liquid based ThinPrep(R) pap test was screened with the use of an image guided system. Performed at: WB Performed By: #### C BC #### [facility] [address] [address] [address] Cain Mcwilliams Note: Comment Normal [facility] Comment on above: Result Comment: The [...] WB Performed By: #### C BC #### [facility] [address] [address] [address] Cain Mcwilliams Performed by: Comment Normal [facility] Comment on above: Result Comment: Martha Odonnell, Hand Baseball Sewer (ASCP) Performed at: WB Performed By: #### C BC #### [facility] [address] [address] [address] Cain Mcwilliams QC reviewed by: Comment Normal [facility] Comment on above: Result Comment: Steven Silver, Supervisory [employer] (ASCP) Performed at: WB Performed By: #### C BC #### [facility] [id number] Cain Mcwilliams Specimen adequacy: Comment Normal [facility] Comment on above: Result Comment: Sati sfactory for evaluation. Endocervical and/or squamous metaplastic cells (endocervical component) are present. Performed at: WB Performed By: #### C BC #### [facility] [address] [address] [address] Cain Mcwilliams US PELVIS AND TRANSVAGon [...] MALICK ESPINOZA Date: 2021-08-30 10:29 Normal [facility] US SINGLE QUAD RT UPPERon US [...] MALICK ESPINOZA Date: 2021-08-30 10:31 Normal [facility] CBC W MANUAL DIFFon 08-25-19 22 ATYPICAL LYMPH # Normal [facility] Comment on above: Performed By: #### C MOHANMAN #### [facility] [address] [address] [address] Cain Mcwilliams ATYPICAL LYMPH % Normal [facility] Comment on above: Performed By: #### C BCISMAEL #### [facility] [address] [address] [address] Cain Mcwilliams BAND # 0.2 103/ul Normal 0.0-0.3 [facility] Comment on above: Performed By: #### C BCISMAEL #### [facility] [address] [address] [address] Cain Mcwilliams BAND % 3 % Normal 0-5 [facility] Comment on above: Performed By: #### C BCMAN #### [facility] [address] [place] [address] Dr. Cain Mcwilliams BASOM # 0.00 103/ul Normal 0.00-0.10 [facility] Comment on above: Performed By: #### C BCISMAEL #### [facility] [address] [place] [address] Dr. Cain Mcwilliams BASOM % 0.0 % Critically low 0.2-2.0 [facility] Comment on above: Performed By: #### C RAY #### [facility] [address] [place] [address] Dr. Cain Mcwilliams BLAST # Normal [facility] Comment on above: Performed By: #### C RAY #### [facility] [address] [place] [address] Dr. Cain Mcwilliams BLAST % Normal [facility] Comment on above: Performed By: #### C RAY #### [facility] [address] [place] [address] Dr. Cain Mcwilliams CORRECTED WBC Normal 4.0-11.[address] [facility] Comment on above: Performed By: #### C RAY #### [facility] [address] [place] [address] Dr. Cain Mcwilliams EOS # 0.00 103/ul Normal 0.00-0.70 [facility] Comment on above: Performed By: #### C BCISMAEL #### [facility] [address] [place] [address] Dr. Cain Mcwilliams EOS% 0.0 % Critically low 0.9-7.0 [facility] Comment on above: Performed By: #### C RAY #### [facility] [address] [place] [address] Dr. Cain Mcwilliams HCT 44.2 % Normal 36.0-48.0 [facility] Comment on above: Performed By: #### C RAY #### [facility] [address] [address] [address] Cain Mcwilliams HGB 14.6 g/dl Normal 12.0-16.0 [facility] Comment on above: Performed By: #### C RAY #### [facility] [address] [address] [address] Cain Mcwilliams LYMPHM # 0.34 103/ul Critically low 1.20-3.80 [facility] Comment on above: Performed By: #### C RAY #### [facility] [address] [address] [address] Cain Mcwilliams LYMPHM% 5.0 % Critically low 20.5-60.0 [facility] Comment on above: Performed By: #### C RAY #### [facility] [address] [place] [address] Dr. Cain Mcwilliams MCH 30.0 pg Normal 26.7-34.0 [facility] Comment on above: Performed By: #### C RAY #### [facility] [address] [place] [address] Dr. Cain Mcwilliams MCHC 33.0 g/dl Normal 29.9-35.2 [facility] Comment on above: Performed By: #### C RAY #### [facility] [address] [place] [address] Dr. Cain Mcwilliams MCV 90.9 fL Normal 81.0-99.0 [facility] Comment on above: Performed By: #### C RAY #### [facility] [address] [place] [address] Dr. Cain Mcwilliams METAMYELOCYTE # Normal [facility] Comment on above: Performed By: #### C RAY #### [facility] [address] [place] [address] Dr. Cain Mcwilliams METAMYELOCYTE % Normal [facility] Comment on above: Performed By: #### C RAY #### [facility] [address] [address] [address] Cain Mcwilliams MONOM# 0.21 103/ul Critically low 0.30-0.80 [facility] Comment on above: Performed By: #### C RAY #### [facility] [address] [place] [address] Dr. Cain Mcwilliams MONOM% 3.0 % Normal 1.7-12.0 [facility] Comment on above: Performed By: #### C RAY #### [facility] [address] [place] [address] Dr. Cain Mcwilliams MPV 11.3 fL Normal 9.5-13.5 [facility] Comment on above: Performed By: #### C BCISMAEL #### [facility] [address] [place] [address] Dr. Cain Mcwilliams MYELOCYTE # Normal [facility] Comment on above: Performed By: #### C RAY #### [facility] [address] [place] [address] Dr. Cain Mcwilliams MYELOCYTE % Normal [facility] Comment on above: Performed By: #### C RAY #### [facility] [address] [place] [address] Dr. Cain Mcwilliams NRBC Normal [facility] Comment on above: Performed By: #### C RAY #### [facility] [address] [place] [address] Dr. Cain Mcwilliams PLT 153 103/ul Normal 150-450 [facility] Comment on above: Performed By: #### C RAY #### [facility] [address] [place] [address] Dr. Cain Mcwilliams RBC 4.86 106/ul Normal 4.20-5.40 [facility] Comment on above: Performed By: #### C RAY #### [facility] [address] [place] [address] Dr. Cain Mcwilliams RDW 12.5 % Normal 11.0-15.0 [facility] Comment on above: Performed By: #### C RAY #### [facility] [address] [place] [address] Dr. Cain Mcwilliams SEG # 6.14 103/ul Normal 1.40-6.50 [facility] Comment on above: Performed By: #### C BCMAN #### [facility] [address] [place], [place] [address] Dr. Cain Mcwilliams SEG % 89.0 % Critically high 43.0-75.0 [facility] Comment on above: Performed By: #### C BCMAN #### [facility] [address] [place], [place] [address] Dr. Cain Mcwilliams WBC 6.9 103/ul Normal 4.0-11.0 [facility] Comment on above: Performed By: #### C BCMAN #### [facility] [address] [place], [place] [address] ABD/PELV W CONon [...] ISHMAEL WEBBERVICKY Date: 2021-08-24 17:39 Normal [facility] CULTURE BLOODon 08-24-2021 Microscopic examination of blood, culture Culture Observations: No growth at 5 days. Normal [facility] Comment on above: Performed By: #### C BC #### [facility] [address] [place] [address] Dr. Cain Mcwilliams Microscopic examination of blood, culture Culture Observations: No growth at 5 days Normal [facility] Comment on above: Performed By: #### C BC #### [facility] [address] [place] [address] Dr. Cain Mcwilliams Covid-19 PCR (CVDTB)on SARS-CoV-2 (COVID-19) RNA DANIELLE+probe Ql (Unsp spec) Not detected Normal NOT DETECTED [facility] Comment on above: Result Comment: When [...] for this test is supported by the [employer] of Health and Human Service's declaration that [...] used). Performed By: #### C VDTBH #### [facility] [address] [place] [address] Dr. Cain Mcwilliams ER URINE PROFILEon 2 Bilirubin Ql (U) Negative Normal NEGATIVE [facility] Comment on above: Performed By: #### C BC #### [facility] [address] [place] [address] Dr. Cain Mcwilliams Clarity (U) SL CLOUDY Abnormal CLEAR [facility] Comment on above: Performed By: #### C BC #### [facility] [address] [place] [address] Dr. Cain Mcwilliams Color (U) YELLOW Normal YELLOW [facility] Comment on above: Performed By: #### C BC #### [facility] [address] [place] [address] Dr. Cain MANE A micrscopic examination will be performed if indicated. Normal [facility] Comment on above: Performed By: #### C BC #### [facility] [address] [place] [address] Dr. Cain Mcwilliams Glucose Ql (U) Negative Normal NEGATIVE [facility] Comment on above: Performed By: #### C BC #### [facility] [address] [place] [address] Dr. Cain Mcwilliams Hemoglobin Ql (U) Negative Normal NEGATIVE [facility] Comment on above: Performed By: #### C BC #### [facility] [address] [place] [address] Dr. Cain Mcwilliams Ketones Ql (U) Negative Normal NEGATIVE [facility] Comment on above: Performed By: #### C BC #### [facility] [address] [place] [address] Dr. Cain Mcwilliams LEUKOCYTES Negative Normal NEGATIVE [facility] Comment on above: Performed By: #### C BC #### [facility] [address] [place] [address] Dr. Cain Mcwilliams Nitrite Ql (U) Negative Normal NEGATIVE [facility] Comment on above: Performed By: #### C BC #### [facility] [address] [place] [address] Dr. Cain Mcwilliams pH (U) 5.5 [pH] Normal 5-9 [facility] Comment on above: Performed By: #### C BC #### [facility] [address] [place] [address] Dr. Cain Mcwilliams SPEC GRAVITY 1.025 Normal 1.005-<=1.[address] [place] [address] Comment on above: Performed By: #### C BC #### [facility] [address] [place] [address] Dr. Cain Mcwilliams UA PROTEIN Negative Normal NEGATIVE/ TRACE [facility] Comment on above: Performed By: #### C BC #### [facility] [address] [place] [address] Dr. Cain Mcwilliams UR MICRO IND NOT INDICATED Normal [facility] Comment on above: Performed By: #### C BC #### [facility] [address] [place] [address] Dr. Cain Mcwilliams Urobilinogen Qn (U) 0.2 {Claire'U}/dL Normal 0.2 - 1. 0 [facility] Comment on above: Performed By: #### C BC #### [facility] [address] [place] [address] Dr. Cain Mcwilliams LACTATE/LACTIC ACIDon 2021 Lactate [Moles/Vol] 2.1 mmol/L Critically high 0.7-2.0 [facility] Comment on above: Performed By: #### L ACT #### [facility] [address] [place] [address] Dr. Cain Mcwilliams LIPASEon 08-24-2021 Lipase [Catalytic activity/Vol] 102.0 U/L Normal 23.0-300.0 [facility] Comment on above: Performed By: #### C MP, LIPA #### [facility] [address] [place] [address] Dr. Cain Mcwilliams PREG HCG QUALon 08-24-2021 , QUAL Negative Normal NEGATIVE [facility] Comment on above: Performed By: #### C BC #### [facility] [address] [place] [address] Dr. Cain Mcwilliams PROF 14(COMP METB)on 022 Albumin [Mass/Vol] 3.7 g/dL Normal 3.4-5.0 [facility] Comment on above: Performed By: #### C MP, LIPA #### [facility] [address] [place] [address] Dr. Cain Mcwilliams Albumin/Globulin [Mass ratio] 1.1 {ratio} Normal [facility] Comment on above: Performed By: #### C MP, LIPA #### [facility] [address] [address] [address] Cain Mcwilliams ALP [Catalytic activity/Vol] 103 U/L Normal 46-116 [facility] Comment on above: Performed By: #### C BENEDICTO, LIPA #### [facility] [address] [place] [address] Dr. Cain Mcwilliams ALT [Catalytic activity/Vol] 18 U/L Normal 14-59 [facility] Comment on above: Performed By: #### C BENEDICTO, LIPA #### [facility] [address] [place] [address] Dr. Cain Mcwilliams Anion gap [Moles/Vol] 15.3 mmol/L Normal [facility] Comment on above: Performed By: #### C BENEDICTO, LIPA #### [facility] [address] [place] [address] Dr. Cain Mcwilliams AST [Catalytic activity/Vol] 13 U/L Critically low 15-37 [facility] Comment on above: Performed By: #### C BENEDICTO, LIPA #### [facility] [address] [address] [address] Cain Mcwilliams Bilirubin [Mass/Vol] 0.7 mg/dL Normal 0.2-1.3 [facility] Comment on above: Performed By: #### C BENEDICTO, LIPA #### [facility] [address] [place] [address] Dr. Cain Mcwilliams Calcium [Mass/Vol] 8.3 mg/dL Critically low 8.5-10.1 [facility] Comment on above: Performed By: #### C BENEDICTO, LIPA #### [facility] [address] [address] [address] Cain Mcwilliams Chloride [Moles/Vol] 102 mmol/L Normal 98-107 [facility] Comment on above: Performed By: #### C MP, LIPA #### [facility] [address] [place] [address] Dr. Cain Mcwilliams CO2 [Moles/Vol] 22.2 mmol/L Normal 22.0-30.[address] [facility] Comment on above: Performed By: #### C MP, LIPA #### [facility] [address] [place] [address] Dr. Cain Mcwilliams Creatinine [Mass/Vol] 0.93 mg/dL Normal 0.52-1.04 [facility] Comment on above: Performed By: #### C MP, LIPA #### [facility] [address] [place] [address] Dr. Cain Mcwilliams EGFR-AF NORWEGIAN >60 Normal >=[address] [facility] Comment on above: Performed By: #### C MP, LIPA #### [facility] [address] [place] [address] Dr. Cain Mcwilliams EGFR-NON AF NORWEGIAN >60 Normal >=60 [facility] Comment on above: Performed By: #### C MP, LIPA #### [facility] [address] [place] [address] Dr. Cain Mcwilliams Globulin (S) [Mass/Vol] 3.5 g/dL Normal [facility] Comment on above: Performed By: #### C MP, LIPA #### [facility] [address] [place] [address] Dr. Cain Mcwilliams Glucose [Mass/Vol] 108 mg/dL Critically high 74-106 [facility] Comment on above: Performed By: #### C MP, LIPA #### [facility] [address] [place] [address] Dr. Cain Mcwilliams Potassium [Moles/Vol] 3.5 mmol/L Normal 3.4-5.0 [facility] Comment on above: Performed By: #### C MP, LIPA #### [facility] [address] [place], [place] [id number] Dr. Cain Mcwilliams Protein [Mass/Vol] 7.2 g/dL Normal 6.1-8.2 [facility] Comment on above: Performed By: #### C MP, LIPA #### [facility] [address] [address] [address] Cain Mcwilliams Sodium [Moles/Vol] 136 mmol/L Critically low 137-145 [facility] Comment on above: Performed By: #### C MP, LIPA #### [facility] [address] [address] [address] Cain Mcwilliams Urea nitrogen [Mass/Vol] 11.0 mg/dL Normal 7.0-18.0 [facility] Comment on above: Performed By: #### C MP, LIPA #### [facility] [address] [address] [address] Cain Mcwilliams Urea nitrogen/Creatinine [Mass ratio] 11.8 mg/mg Normal [facility] Comment on above: Performed By: #### C MP, LIPA #### [facility] [address] [address] [address] Cain Mcwilliams Automated basophil %on 02-11 Basophils/100 WBC (Bld) 0.4 % [facility] Automated basophil counton 0 02-11-2019 Basophils (Bld) [#/Vol] 0.0 10*3/uL 0.0-0.2 [facility] Automated blood lymphocyte c ount (number/volume)on 02-11-2019 Lymphocytes (Bld) [#/Vol] 0.8 10*3/uL 1.00-4.8 [facility] Automated blood lymphocyte c ount as percentage of total leukocyteson 02-11-2019 Lymphocytes/100 WBC (Bld) 21.0 % [facility] Automated blood monocyte cou nton 02-11-2019 Monocytes (Bld) [#/Vol] 0.2 10*3/uL 0.0-0.8 [facility] Automated blood platelet cou nt (count/volume)on 02-11-2019 Platelets (Bld) [#/Vol] 141 10*3/uL 150-450 [facility] Automated blood platelet lyn n volume measurementon 02-11-2019 Platelet mean volume (Bld) [Entitic vol] 9.4 fL 6.3-10.7 [facility] Automated eosinophil %on Eosinophils/100 WBC (Bld) 1.1 % [facility] Automated eosinophil counton 02-11-2019 Eosinophils (Bld) [#/Vol] 0.0 10*3/uL 0.0-0.45 [facility] Automated erythrocyte distri bution width ratioon 02-11-2019 Erythrocyte distribution width (RBC) [Ratio] 12.4 % 11.9-15.3 [facility] Automated erythrocyte mean c orpuscular hemoglobin (mass per erythrocyte)on 02-11-2019 MCH (RBC) [Entitic mass] 30.3 pg 24.7-34.3 [facility] Automated erythrocyte mean c orpuscular hemoglobin concentration measurement (mass/volon 02-11-2019 MCHC (RBC) [Mass/Vol] 33.8 g/dL 32.0-35.0 [facility] Automated erythrocyte mean c orpuscular volumeon 02-11-2019 MCV (RBC) [Entitic vol] 89.6 fL 80-100 [facility] Automated erythrocytes count in urine sediment (number/area)on 02-11-2019 RBC Auto (Urine sed) [#/Area] 10-19 [HPF] [facility] Automated leukocytes count i n urine sediment (number/area)on 02-11-2019 WBC Auto (Urine sed) [#/Area] 3-4 [HPF] [facility] Automated monocyte %on 02-11 Monocytes/100 WBC (Bld) 5.6 % [facility] Automated neutrophil %on Neutrophils/100 WBC (Bld) 71.9 % [facility] Automated urine color determ inationon 02-11-2019 Color (U) Yellow Yellow [facility] Blood erythrocytes automated count (number/volume)on 02-11-2019 RBC (Bld) [#/Vol] 4.66 10*6/uL 3.60-5.00 [facility] Blood hemoglobin measurement (mass/volume)on 02-11-2019 Hemoglobin (Bld) [Mass/Vol] 14.1 g/dL 11.8-15.4 [facility] Blood leukocytes automated c ount (number/volume)on 02-11-2019 WBC (Bld) [#/Vol] 3.8 10*3/uL 3.8-11.6 [facility] Blood neutrophil count by au tomated method (number/volume)on 02-11-2019 Neutrophils (Bld) [#/Vol] 2.7 10*3/uL 1.8-7.7 [facility] Estimated glomerular filtrat ion rate (GFR) non- Americanon 02-11-2019 GFR/1.73 sq M predicted among non-blacks MDRD (S/P/Bld) [Vol rate/Area] mL/min/{1.73_m2} [facility] Hematocrit [Volume Fraction] of Blood by Automated counton 02-11-2019 Hematocrit (Bld) [Volume fraction] 41.7 % 34.0-46.4 [facility] Otheron 02-11-2019 GFR/1.73 sq M.predicted MDRD (S/P/Bld) [Vol rate/Area] mL/min/{1.73_m2} [facility] Comment on above: GFR estimated refere nce range: According to KDOQI guidelines, <60 ml/min/1.73m2 is sufficient to diagnose a patient with chronic kidney disease. Nucleated RBC/100 WBC (Bld) [Ratio] 0.1 % 0-0.5 [facility] Creatinine Clearance (Chem [id number] [facility] Serum or plasma calcium kevin urement (mass/volume)on 02-11-2019 Calcium [Mass/Vol] 9.5 mg/dL 8.2-10.2 [facility] Serum or plasma chloride lyn surement (moles/volume)on 02-11-2019 Chloride [Moles/Vol] 107 mmol/L 95-114 [facility] Serum or plasma creatinine m easurement with calculation of estimated glomerular filtron 02-11-2019 Creatinine [Mass/Vol] 0.86 mg/dL 0.44-1.03 [facility] Serum or plasma glucose kevin urement (mass/volume)on 02-11-2019 Glucose [Mass/Vol] 103 mg/dL 70-100 [facility] Comment on above: ADA recommended refe rence rangeRandom Glucose Reference Range is dependent on time and content of last meal. Glucose of more than 200 mg/dL in a nonstressed, ambulatory subject supports the diagnosis of Diabetes Mellitus. Serum or plasma potassium me asurement (moles/volume)on 02-11-2019 Potassium [Moles/Vol] 3.9 mmol/L 3.5-5.1 [facility] Serum or plasma sodium measu rement (moles/volume)on 02-11-2019 Sodium [Moles/Vol] 139 mmol/L 136-146 [facility] Serum or plasma total carbon dioxide measurement (moles/volume)on 02-11-2019 CO2 [Moles/Vol] 24.6 mmol/L 22.0-30.0 [facility] Serum or plasma urea nitroge n measurement (mass/volume)on 02-11-2019 Urea nitrogen [Mass/Vol] 8 mg/dL 9- [facility] Specific gravity of Urine by Automated test stripon 02-11-2019 Specific gravity (U) [Rel density] 1.021 1.001-1.030 [facility] Squamous epithelial cells de tection in urine sediment by light microscopyon 02-11-2019 Epithelial cells.squamous LM Ql (Urine sed) 5-9 [HPF] [facility] Urinalysison 02-11-2019 Hyaline casts LM Ql (Urine sed) 0-8 [LPF] [facility] Urine bacteria detection by automated methodon 02-11-2019 Bacteria Auto Ql (U) None seen None Seen [facility] Urine clarity by refractomet ry automatedon 02-11-2019 Clarity Refractometry automated (U) Clear Clear [facility] Urine glucose measurement by automated test strip (mass/volume)on 02-11-2019 Glucose Auto test strip (U) [Mass/Vol] Normal mg/dL Normal [facility] Urine hemoglobin detection b y automated test stripon 02-11-2019 Hemoglobin Auto test strip Ql (U) 2+ Negative [facility] Urine human chorionic gonado tropin (hCG) detection by immunoassayon 02-11-2019 HCG ( test) Ql (U) Negative Negative [facility] Urine ketones measurement by automated test strip (mass/volume)on 02-11-2019 Ketones (U) [Mass/Vol] Negative Negative [facility] Urine leukocyte esterase det ection by automated test stripon 02-11-2019 Leukocyte esterase Auto test strip Ql (U) Negative Negative [facility] Urine nitrite detection by t est stripon 02-11-2019 Nitrite Ql (U) Negative Negative [facility] Urine pH measurement by auto mated test stripon 02-11-2019 pH (U) 5.0 [pH] 5.0-9.0 [facility] Urine protein measurement by automated test strip (mass/volume)on 02-11-2019 Protein (U) [Mass/Vol] Negative Negative [facility] Urine total bilirubin detect ion by test stripon 02-11-2019 Bilirubin Ql (U) Negative Negative [facility] Urine urobilinogen measureme nt by automated test strip (mass/volume)on 02-11-2019 Urobilinogen (U) [Mass/Vol] Normal mg/dL Normal [facility] Vital Signs Date Time Vital Sign Value Performing Clinician Facility 08-22-2024 11:19-040 Body height 165.1 cm Corrine MOSELEY Work Phone: [facility] 08-22-2024 11:19-0400 Body mass index (BMI) [Ratio] 34.28 kg/m2 Corrine MOSELEY Work Phone: [facility] 08-22-2024 11:19-0400 Body temperature 97.39 [degF] Corrine MOSELEY Work Phone: [facility] 08-22-2024 11:19-0400 Body weight 93.44 kg Corrine MOSELEY Work Phone: [facility] 08-22-2024 11:19-0400 Diastolic blood pressure 78 mm[Hg] Corrine MOSELEY Work Phone: [facility] 08-22-2024 11:19-0400 Heart rate 87 /min Corrine MOSELEY Work Phone: [facility] 08-22-2024 11:19-0400 SaO2% (BldA) [Mass fraction] 99 % Corrine MOSELEY Work Phone: [facility] 08-22-2024 11:19-0400 Systolic blood pressure 118 mm[Hg] Corrine Ambrosio PA Work Phone: [facility] 08-15-2024 11:35-0400 Body mass index (BMI) [Ratio] 34.61 kg/m2 Izabel Christian DO Work Phone: [facility] 08-15-2024 11:35-0400 Body weight 94.35 kg Izabel Christian DO Work Phone: [facility] 08-15-2024 11:35-0400 Diastolic blood pressure 74 mm[Hg] Izabel Christian DO Work Phone: [facility] 08-15-2024 11:35-0400 Systolic blood pressure 110 mm[Hg] Izabel Christian DO Work Phone: [facility] 05-22-2024 14:37-0500 Body height 165.1 cm Corrine Ambrosio PA Work Phone: [facility] 05-22-2024 14:37-0500 Body mass index (BMI) [Ratio] 34.95 kg/m2 Corrine Ambrosio PA Work Phone: [facility] 05-22-2024 14:37-0500 Body temperature 97.39 [degF] Corrine Ambrosio PA Work Phone: [facility] 05-22-2024 14:37-0500 Body weight 95.25 kg Corrine Ambrosio PA Work Phone: [facility] 05-22-2024 14:37-0500 Diastolic blood pressure 78 mm[Hg] Corrine Ambrosio PA Work Phone: [facility] 05-22-2024 14:37-0500 Heart rate 87 /min Corrine Ambrosio PA Work Phone: [facility] 05-22-2024 14:37-0500 SaO2% (BldA) [Mass fraction] 98 % Corrine Ambrosio PA Work Phone: [facility] 05-22-2024 14:37-0500 Systolic blood pressure 118 mm[Hg] Corrine Ambrosio PA Work Phone: [facility] 02-02-2024 18:37-0400 Body height 165.1 cm [facility] 02-02-2024 18:37-0400 Body mass index (BMI) [Ratio] 38.2 kg/m2 [facility] 02-02-2024 18:37-0400 Body temperature 98.7 [degF] [facility] 02-02-2024 18:37-0400 Body weight 104.32 kg [facility] 02-02-2024 18:37-0400 Diastolic blood pressure 67 mm[Hg] [facility] 02-02-2024 18:37-0400 Heart rate 85 /min [facility] 02-02-2024 18:37-0400 Respiratory rate 18 /min [facility] 02-02-2024 18:37-0400 SaO2% (BldA) [Mass fraction] 98 % [facility] 02-02-2024 18:37-0400 Systolic blood pressure 112 mm[Hg] [facility] 01-12-2024 15:45-0400 Body temperature 98.01 [degF] Summer Workman PA Work Phone: [facility] 01-12-2024 15:45-0400 Diastolic blood pressure 72 mm[Hg] Summer Workman PA Work Phone: [facility] 01-12-2024 15:45-0400 Heart rate 80 /min Summer Workman PA Work Phone: [facility] 01-12-2024 15:45-0400 SaO2% (BldA) [Mass fraction] 99 % Summer Workman PA Work Phone: [facility] 01-12-2024 15:45-0400 Systolic blood pressure 120 mm[Hg] Summer Workman PA Work Phone: [facility] 02-11-2019 13:45-0400 BP Diastolic 61 mm[Hg] Gabino Prieto [facility] 02-11-2019 13:45-0400 BP Systolic 105 mm[Hg] Gabino Prieto [facility] 02-11-2019 13:45-0400 Pulse (Heart Rate) 74 /min [facility] 02-11-2019 13:45-0400 Pulse Oximetry 100 % Gabino [facility] 02-11-2019 13:45-0400 Respiratory Rate 19 /min [facility] 02-11-2019 11:03-0400 BMI (Body Mass Index) 25.7 kg/m2 Gabino [facility] 02-11-2019 11:03-0400 Body Temperature 97.7 [degF] [facility] 02-11-2019 11:03-0400 Body weight 70.3 kg Gabino [facility] 02-11-2019 11:03-0400 Height 165.1 cm Gabino [facility] Encounters Encounter Date Encounter Type Care Provider Facility Start: 09-05-2024 End: 09-05-2024 ambulatory IZABEL GONZALES Not Available Start: 08-22-2024 End: 08-22-2024 Bamboo flowsheet Corrine Ambrosio PA Work Phone: [facility] Start: 08-22-2024 End: 08-22-2024 Bamboo flowsheet Corrine Ambrosio PA Work Phone: [facility] Start: 08-22-2024 End: 08-22-2024 Patient encounter procedure Corrine MOSELEY Work Phone: [facility] Work Phone: Start: 08-22-2024 End: 08-22-2024 Periodic preventive med est patient 18-39 yrs Corrine Ambrosio PA Work Phone: [facility] Comment on above: Annual wellness visi t (Primary Dx) Start: 08-22-2024 End: 08-22-2024 ambulatory CORRINE AMBROSIO Not Available Start: 08-18-2024 End: 08-18-2024 Orders Only Corrine Ambrosio PA Work Phone: [facility] Comment on above: Paronychia of toe, u nspecified laterality (Primary Dx) Start: 08-15-2024 End: 08-22-2024 Clinisync Result Encounter Generic External Data Provider [facility] Unsolicited Start: 08-15-2024 End: 08-22-2024 Clinisync Result Encounter Generic External Data Provider [facility] Unsolicited Start: 08-15-2024 End: 08-15-2024 Patient encounter procedure Izabel Gonzales DO Work Phone: [facility] Start: 08-15-2024 End: 08-15-2024 Periodic preventive med est patient 18-39 yrs Izabel Baileyo DO Work Phone: [facility] Comment on above: Well woman exam with routine gynecological exam; Menorrhagia with regular cycle; History of endometrial ablation Start: 08-15-2024 End: 08-15-2024 ambulatory IZABEL GONZALES Not Available Start: 08-14-2024 End: 08-14-2024 Departed Referred Gabino Prieto DO Work Phone: [facility] [address] Work Phone: Start: 08-14-2024 End: 08-14-2024 ambulatory Gabino Prieto DO Work Phone: [facility] Work Phone: Start: 05-22-2024 End: 05-22-2024 ambulatory [...] [facility] Start: 02-02-2024 End: 02-02-2024 ambulatory [facility] Work Phone: Start: 02-02-2024 End: 02-02-2024 Patient encounter procedure [facility] [place] Work Phone: Start: 01-12-2024 End: 01-12-2024 ambulatory SUMMER M WORKMAN Not Available Start: 01-12-2024 End: 01-12-2024 Office outpatient visit 15 minutes Summer M Workman PA Work Phone: [facility] Comment on above: Viral syndrome (Prim abigail Dx) Start: 06-22-2022 End: 06-23-[address] IZABEL GONZALES Facility:[facility] Start: 10-09-2021 End: 10-09-[address] IZABEL GONZALES Facility:[facility] Start: 10-07-2021 Encounter for other preprocedural examination DR IZABEL GONZALES [facility] Start: 10-06-[address] IZABEL GONZALES [...] Date Procedure Procedure Detail Performing Clinician Start: 08-15-2024 Urine test visual color cmprsn meths Izabel Gonzales DO Work Phone: Start: 08-15-2024 IGP,APTIMA HPV,AGE GDLN Izabel Baileyo DO Work Phone: Start: 02-02-2024 Quick Strep (POC) Start: 02-11-2019 CT abdomen pelvis wo con Gabino Prieto Plan of Treatment Date Care Activity Detail Author Start: 03-12-2025 End: 03-12-2025 Patient encounter procedure 03/12/2025 9:30 AM EDT Procedure Visit [facility] [address] [place] [phone] Izabel Gonzales, DO [address] [place] [address] [facility] Start: 08-22-2024 End: 08-22-2024 Patient encounter procedure 08/22/2024 11:20 AM EDT Office Visit [facility] [address] [place] [id number] Corrine Ambrosio PA [address] [place] [address] Arrived [facility] Comment on above: Arrived Start: 08-03-2024 End: 08-03-2024 Patient encounter procedure 08/03/2024 8:30 AM EDT Office Visit [facility] [address] [place] [phone] Izabel Gonzales, DO [address] [place] [address] [facility] Start: 05-30-2024 Screening for malign ant neoplasm of cervix [facility] Start: 01-23-2024 Influenza vaccination Influenza Vacc ine (#1) [facility] Start: 2010 Screening for malign ant neoplasm of cervix Pap Smear [facility] Cytology Cervical or vaginal smear or scraping study Pap Smear Pathology and Cytology Routine Well woman exam with routine gynecological exam Ordered: 08/15/2024 [facility] Work Phone: Comment on above: Ordered: 08/15/2024 Human papilloma viru s DNA [Presence] in Unspecified specimen by Probe with amplification HPV DNA probe, amplified Microbiology Routine Well woman exam with routine gynecological exam Ordered: 08/15/2024 [facility] Comment on above: Ordered: 08/15/2024 Patient Education Kidney Stones (ED) How to Strain Your Urine (ED) [facility] Patient referral [facility] Immunizations Immunization Date Immunization Notes Care Provider Nancy shaffer 08-14-2024 influenza, seasonal, injectable, preservative free Corrine Ambrosio PA Work Phone: [facility] 11-19-2014 tetanus toxoid, redu sissy diphtheria toxoid, and acellular pertussis vaccine, adsorbed Summer Workman PA Work Phone: [facility] 10-05-2006 meningococcal polysaccharide (groups A, C, Y and W-135) diphtheria toxoid conjugate vaccine (MCV4P) Corrine Ambrosio PA Work Phone: [facility] 04-24-1992 diphtheria, tetanus toxoids and pertussis vaccine Corrine Ambrosio PA Work Phone: [facility] 04-24-1992 measles, mumps and r ubella virus vaccine Corrine Ambrosio PA Work Phone: [facility] 04-24-1992 poliovirus vaccine, inactivated Corrine Ambrosio PA Work Phone: [facility] 03-31-1991 haemophilus influenz ae type b vaccine, PRP-T conjugate Corrine Ambrosio PA Work Phone: [facility] 03-31-1991 measles, mumps and r ubella virus vaccine Corrine Ambrosio PA Work Phone: [facility] 12-02-1990 diphtheria, tetanus toxoids and pertussis vaccine Corrine Ambrosio PA Work Phone: [facility] 12-02-1990 haemophilus influenz ae type b vaccine, PRP-T conjugate Corrine Ambrosio PA Work Phone: [facility] 04-22-1990 diphtheria, tetanus toxoids and pertussis vaccine Corrine Amborsio PA Work Phone: [facility] 04-22-1990 poliovirus vaccine, inactivated Corrine Ambrosio PA Work Phone: [facility] 01-31-1990 diphtheria, tetanus toxoids and pertussis vaccine Corrine Ambrosio PA Work Phone: [facility] 01-31-1990 poliovirus vaccine, inactivated Corrine Ambrosio PA Work Phone: [facility] Payers Date Payer Category Payer Self-pay [id number] 2022 Medicaid [id number] 2022 Medicaid [id number] 1989 Unknown [id number] 2.16.84 [id number] 1989 Unknown [id number] 2.16.84 [id number] 1989 Unknown [id number] 2.16.84 [id number] 1989 Unknown [id number] 2.16.84 0.1.752167.3.579.2.593 1989 Unknown [id number] 2.16.84 0.1.558991.3.579.2.593 1989 Unknown [id number] 2.16.84 0.1.662587.3.579.2.593 1989 Unknown [id number] 2.16.84 0.1.911458.3.579.2.593 1989 Unknown [id number] 2.16.84 0.1.041519.3.579.2.593 1989 Unknown [id number] 2.16.84 0.1.733031.3.579.2.1259 1989 Unknown [id number] 2.16.84 0.1.454960.3.579.2.1259 1989 Unknown [id number] 2.16.84 0.1.733284.3.579.2.1259 1989 Unknown [id number] 2.16.84 0.1.061933.3.579.2.1259 1989 Unknown [id number] 2.16.84 0.1.088320.3.579.2.1259 1959 Unknown [id number] 1959 Unknown [id number] Unknown Self Pay [id number] Unknown Chance BC/BS [id number] Unknown Insurance No Card [id number] Unknown [id number] 2.16.8 [id number] Social History Date Type Detail Facility Start: 02-11-2019 Tobacco smoking stat us [facility] Never smoked tobacco (finding) [facility] Start: 1990 Sex Assigned At Female F [facility] Start: 12-23-2022 End: 02-02-2024 Tobacco smoking status NHIS Ex-smoker (finding) [facility] History of tobacco use Current smoker [facility] History of tobacco use Cigarette Smoker [facility] Start: 12-23-2022 Tobacco use and exposure Smokeless tobacco non-user [facility] Start: 01-12-2024 End: 08-15-2024 Alcoholic beverage intake Lifetime non-drinker (finding) [facility] Start: 12-23-2022 End: 08-22-2024 History of Social function [facility] Start: 12-23-2022 End: 08-22-2024 Tobacco use panel [facility] Start: 12-23-2022 Alcohol Comment Caffeine: > 4 cups/day soda [facility] Start: 1990 Sex assigned at Not on file [facility] Start: 08-15-2024 Sex Female (finding) [facility] Goals Date Patient Goal Desired Activity /State Clinical Notes 10-09-2021 to 08-22-2024 LORELEI Crockett - 08/22/2024 11:20 AM LORELEI Ruggiero - 08/18/2024 1:05 PM Patt Payne LPN - 08/15/2024 11:20 AM LORELEI Ruggiero - 05/22/2024 2:20 PM EST Note Date & Type Note Facility 08-22-2024 History of Presen t illness Narrative Images from the original note were not included. Subjective Patient ID: Juaquin Armstrong is a 33 y.o. female who presents for Annual Exam (Pt states she is here for a yearly wellness. Pt states that she will starting at [facility] and she will need the wellness for her health insurance. ). Wellness Examination Pt presents to the office for an annual wellness visit without any current complaints. She recently had labs completed at [facility] [place] and is not currently taking any medications. Pt denies the symptoms listed below and feels well overall. Review of Systems Constitutional: Negative for chills and fever. Respiratory: Negative for shortness of breath. Cardiovascular: Negative for chest pain. Gastrointestinal: Negative for diarrhea, nausea and vomiting. Musculoskeletal: Negative for myalgias. Skin: Negative for rash. All other systems reviewed and are negative. Objective Visit Vitals BP 118/78 Pulse 87 Temp 97.4 F Ht 5' 5 Wt 206 lb LMP 08/07/2024 (Approximate) SpO2 99% BMI 34.28 kg/m Smoking Status Former BSA 2.07 m Physical Exam Constitutional: General: She is not in acute distress. Appearance: Normal appearance. HENT: Head: Normocephalic and atraumatic. Mouth/Throat: Mouth: Mucous membranes are moist. Eyes: Extraocular Movements: Extraocular movements intact. Neck: Vascular: No carotid bruit. Cardiovascular: Rate and Rhythm: Normal rate and regular rhythm. Pulses: Normal pulses. Heart sounds: No murmur heard. No friction rub. No gallop. Pulmonary: Effort: No respiratory distress. Breath sounds: Normal breath sounds. No wheezing, rhonchi or rales. Abdominal: General: Bowel sounds are normal. There is no distension. Palpations: Abdomen is soft. Tenderness: There is no abdominal tenderness. Musculoskeletal: Right lower leg: No edema. Left lower leg: No edema. Skin: General: Skin is warm and dry. Findings: No rash. Neurological: General: No focal deficit present. Mental Status: She is alert and oriented to person, place, and time. Psychiatric: Mood and Affect: Mood normal. Behavior: Behavior normal. Judgment: Judgment normal. Assessment/Plan Diagnoses and all orders for this visit: Annual wellness visit Patient here for annual wellness visit. Demographics were updated. Self-assessment was completed. Past medical, family and social history were updated. The medication list, including supplements being taken, was updated. A list of other current medical providers was established/updated. Time was spent discussing health maintenance issues, ordering proper testing, and schedule was provided regarding recommended screening. We discussed safety issues and fall risk. Depression screening was completed and addressed. Major risk factors for chronic disease including family history were discussed. documented in this encounter [facility] 08-18-2024 History of Presen t illness Narrative Referral sent. documented in this encounter [facility] 08-15-2024 History of Presen t illness Narrative Reason for Appointment: Patient ID: Juaquin Armstrong is a 33 y.o. female who presents for Well Women Visit Patient presents today for Annual Exam. 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 02/08/2023 Menorrhagia 02/08/2023 Obesity 02/08/2023 Pain in pelvis 02/08/2023 Sinusitis 02/08/2023 Thrombocytopenic disorder (CMS/HCC) 02/08/2023 Resolved Ambulatory Problems Diagnosis Date Noted No Resolved Ambulatory Problems Past Medical History: Diagnosis Date Abnormal Pap smear of cervix ASCUS with positive high risk HPV cervical 2007 Cervical high risk human papillomavirus (HPV) DNA test positive Cholelithiasis Condyloma Decreased platelet count (CMS/HCC) Dysuria Encounter for cervical smear to confirm findings of recent normal smear following initial abnormal smear Gross hematuria H/O recurrent urinary tract infection History of umbilical hernia HPV in female Kidney stones 2014 LGSIL on Pap smear of cervix Migraine without aura (CMS/HCC) Mild dysplasia of cervix 2008 Obesity (BMI 30-39.9) Pelvic pain 2007 Pre-op exam 2010 2009 Umbilical hernia Varicella zoster Well woman exam HISTORY PAST MEDICAL HISTORY SOCIAL HISTORY Past Medical History: Diagnosis Date Abnormal Pap smear of cervix ASCUS with positive high risk HPV cervical 2008 Cervical high risk human papillomavirus (HPV) DNA test positive Cholelithiasis Condyloma Decreased platelet count (CMS/HCC) Dysuria Encounter for cervical smear to confirm findings of recent normal smear following initial abnormal smear Gross hematuria H/O recurrent urinary tract infection History of umbilical hernia HPV in female Kidney stones 2015 LGSIL on Pap smear of cervix Menorrhagia Migraine without aura (CMS/HCC) without mention of intractable migraine without mention of status migrainosus Mild dysplasia of cervix 2009 Obesity (BMI 30-39.9) Pelvic pain 2007 Pre-op exam 2010 2009 Umbilical hernia age 3 Varicella zoster Well woman exam Social History Tobacco Use Smoking status: Former Types: Cigarettes Smokeless tobacco: Never Substance Use Topics Alcohol use: Never Comment: Caffeine: > 4 cups/day soda Drug use: Never FAMILY HISTORY Family History Problem Relation Name Age of Onset Hypertension Mother Diabetes Father Diabetes Paternal Grandmother Diabetes Sibling No Known Problems Son No Known Problems Son No Known Problems Son No Known Problems Daughter No Known Problems Daughter SURGICAL HISTORY Past Surgical History: Procedure Laterality Date CHOLECYSTECTOMY 2008 Cholelithiasis COLPOSCOPY 2009 ASCUS Pos HPV PAP SMEAR 07/31/2015 Neg PAP SMEAR Abnormal- 02/03/15-LGSIL, 02/2015- ELISABET I; Colpo 2009- mild dysplasia PELVIC LAPAROSCOPY 2007 pelvic pain PELVIC LAPAROSCOPY 2018 MO COLPOSCOPY,ENTIRE VAGINA,W/BIOPSY(S) 2009 abnormal pap smear TUBAL LIGATION 11/2019 UMBILICAL HERNIA REPAIR age 3 VAGINAL DELIVERY 2009 21 hr labor VAGINAL DELIVERY 2010 VAGINAL DELIVERY 2015 REVIEW OF SYSTEMS Review of Systems: Review of Systems Constitutional: Negative. HENT: Negative. Eyes: Negative. Respiratory: Negative. Cardiovascular: Negative. Gastrointestinal: Negative. Genitourinary: Positive for menstrual problem. Musculoskeletal: Negative. Skin: Negative. Neurological: Negative. All other systems reviewed and are negative. Hematological: Negative. Endocrine: Negative. Allergic/Immunologic: Negative. OBJECTIVE Objective: Physical Exam Constitutional: Appearance: Normal appearance. She is well-developed. Genitourinary: Vulva normal. Breasts: Breasts are soft. Right: Normal. Left: Normal. Cardiovascular: Rate and Rhythm: Normal rate and regular rhythm. Pulmonary: Effort: Pulmonary effort is normal. Breath sounds: Normal breath sounds. Abdominal: General: Bowel sounds are normal. There is no distension. Palpations: Abdomen is soft. Tenderness: There is no abdominal tenderness. There is no guarding or rebound. Musculoskeletal: General: No swelling. Normal range of motion. Right lower leg: No edema. Left lower leg: No edema. Neurological: Mental Status: She is alert and oriented to person, place, and time. Skin: General: Skin is warm and dry. Psychiatric: Mood and Affect: Mood normal. Behavior: Behavior normal. Vitals and nursing note reviewed. Exam conducted with a inside upholsterer present. Vitals: Estimated body mass index is 34.61 kg/m as calculated from the following: Height as of 24: 5' 5 . Weight as of this encounter: 208 lb. BP: 110/74 Patient's last menstrual period was 08/07/2024 (approximate). ASSESSMENT & PLAN ICD-10-CM 1. Well woman exam with routine gynecological exam Z01.419 Pap Smear HPV DNA probe, amplified POCT , urine manually resulted 2. Menorrhagia with regular cycle N92.0 3. History of endometrial ablation Z98.890 Annual Exam: Patient presents today for an annual exam. Patient states she is doing well and has complaints of bleeding after ablation, pt to be scheduled for hyst. Pap was obtained without difficulty. Orders Placed This Encounter Procedures HPV DNA probe, amplified POCT , urine manually resulted Follow Up: Patient is to return in one year for annual unless needed otherwise. Documented by Karla Payne LPN on behalf of: Izabel Gonzales DO documented in this encounter [facility] 05-22-2024 History of Presen t illness Narrative [...] Pt verbalized understanding. documented in this encounter [facility] 01-12-2024 History of Presen t illness Narrative [...] in house negative. documented in this encounter [facility] 10-09-2021 Note OPERATIVE NOTE OPERATION DATE: 10/09/2021 PROCEDURE: Juhi endometrial ablation with hysteroscopy. PREOPERATIVE DIAGNOSIS: Menorrhagia. POSTOPERATIVE DIAGNOSIS: Menorrhagia. ANESTHESIA: General. SURGEON: Izabel Gonzales M.D. CENTER MANAGER: None. FINDINGS: Normal appearing endometrium. Both ostia [...] Patient taken to recovery in stable condition. [facility] Signed and Approved by: DR IZABEL GONZALES . 10/13/2021 07:35:00 [facility] Evaluation note Diagnosis Onset Date COVID acute Contact with and (suspected) exposure to covid-[address] [facility] Work Phone: Evaluation note* Diagnosis Viral syndrome- Primary Unspecified viral infection, in conditions classified elsewhere and of unspecified site documented in this encounter [facility]* Diagnosis Paronychia of great toe of right foot- Primary Toenail fungus documented in this encounter [facility] noteNo [facility] Work [facility]: [facility]* Diagnosis Paronychia of toe, unspecified laterality- Primary documented in this encounter [facility]* Diagnosis Well woman exam with routine gynecological exam Routine gynecological examination Menorrhagia with regular cycle History of endometrial ablation documented in this encounter [facility]* Diagnosis Annual wellness visit- Primary documented in this encounter [facility] Advance Directives No Advanced Directives Records Found [...] and content) DATE CREATED AUTHOR 06/25/2022 [facility] DATE CREATED AUTHOR AUTHOR'S ORGANIZ ATION 08/15/2024 [facility] DATE CREATED AUTHOR AUTHOR'S ORGANIZ ATION 09/06/2024 [facility] EPIC Care Teams (unrecognized sec tion and content) Team Status: Active Member Role Status Dates Gabino Prieto DO Primary Care Provider Active Team Status: Inactive Member Role Status Dates Gabino Prieto DO Primary Care Provider Active Start: February 02, 2024 End: February 02, 2024 Hilaria LOPEZ , ABRASIVE GRADER Attending Provider Active Start: February 02, 2024 End: February 02, 2024 Filter Tank Tender Helper Head Relationship Specialty Start Date End Date Warren Prieto DO [address] [place] [address] PCP - General Family Medicine 09/29/22 Filter Tank Tender Helper Head Relationship Specialty Start Date End Date Warren Prieto DO [address] [place] [address] PCP - General Family Medicine 09/29/22 Filter Tank Tender Helper Head Relationship Specialty Start Date End Date Warren Prieto DO [address] [place] [address] PCP - General Family Medicine 09/29/22 Team Status: Inactive Member Role Status Dates Gabino Prieto DO Primary Care Provider Active Start: August 14, 2024 End: August 14, 2024 Wes John Jr, DO Attending Provider Active S tart: August 14, 2024 End: August 14, 2024 Filter Tank Tender Helper Head Relationship Specialty Start Date End Date Warren Prieto DO [address] [place] [address] PCP - General Family Medicine 09/29/22 Filter Tank Tender Helper Head Relationship Specialty Start Date End Date Warren Prieto DO [address] [place] [address] PCP - General Family Medicine 09/29/22 Filter Tank Tender Helper Head Relationship Specialty Start Date End Date Warren Prieto, DO [address] [place] [address] PCP - General Family Medicine 09/29/22 Filter Tank Tender Helper Head Relationship Specialty Start Date End Date Warren Prieto, DO [address] [place] [address] PCP - General Family Medicine 09/29/22 Filter Tank Tender Helper Head Relationship Specialty Start Date End Date Warren Prieto, DO [address] [place] [address] PCP - General Family Medicine 09/29/22 Goals [...] the yellowing of her toenails as well. Reason Comments Well Women Visit Reason Comments Annual Exam Pt states she is her e for a yearly wellness. Pt states that she will starting at [employer] [facility] [place] and she will need the wellness for her health insurance. FOR RECORDS PERTAINING TO PATIENTS WHO ARE [...] BE BASED ON THE PRIMARY CLINICAL RECORDS. [employer] provides no warranty or guarantee of the accuracy or completeness of information in this document.
== END 2024-09-05 12:06 | disposition home or self-care (01) ==
LOC: LAB 12:05
PROVIDERS: PCP Family Medicine; Visit Provider Obstetrics & Gynecology
DX: R87.613 High grade squamous intraepithelial lesion on cytologic smear of cervix (HGSIL) (principal); R87.612 Low grade squamous intraepithelial lesion on cytologic smear of cervix (LGSIL)
CPT/HCPCS: 88305; 88342; 88360

== ENCOUNTER 2024-09-09 22:31 | Emergency (ER) | payer MEDICAID, SELFPAY ==
[2024-09-09 22:33] VITALS: BP 120/85; PULSE 79; TEMP 36.6; O2SAT 99; BMI 34.9
--- OUTSIDE RECORDS SUMMARY | 2024-09-09 22:36 | XMS_ITS | CCD ---
Author Organization [facility] Care Team Providers Care Endoscopy Specialty Technician Name Role Phone Gabino Prieto Primary Care Provider Unavailmargaret GONZALES, DR PAIZ Admitting Unavailable CHRISTIAN, DR PAIZ Attending Unavailable KAROXANNEAN, DR Stoney JAY Primary Care Unavailable CHRISTIAN, DR PAIZ Consulting Unavailable AGUBOSIM, SHILA Consulting Unavailable SERENE MARTINO Consulting Unavailable ARTIE LI Consulting Unavailable MELSISA JONES Attending Unavailable MELISSA JONES Admitting Unavailable MAGDALENO, DR Stoney JAY Primary Care Unavailable ZINIHARIKA, DR MALICK Rain Consulting Unavailable MELISSA JONES [...] Unavailable DR Stoney PRIETO Referring Unavailable DR JAXSON GONZALES Consulting Unavailable Warren Prieto DO Primary Care Provider Gabino Prieto DO Primary Care Provider Wes John DO Attending Provider [phone] CORNELIUS TUNG [place] Attending Unavailable CORRINE AMBROSIO Attending Unavailable JAXSON GONZALES Attending Unavailable CORRINE AMBROSIO Attending Unavailable JAXSON GONZALES Attending Unavailable Wes John Jr Admitting Unavailable Wes John Jr Attending Unavailable Gabino Prieto Primary Care Unavailable Jaxson Gonzales Attending Unavailable Jaxson Gonzales Admitting Unavailable Unavailable Unavailable Unavailable Allergies Allergy Classification Reported Allergen(s) Allergy Type Date of Onset Reaction(s) Facility (14 sources) levoFLOXacin; Translations: [levofloxacin] Drug Allergy 02-08-2023 [facility] (1 source) levoFLOXacin Drug Allergy 11-10-2012 [facility] (4 sources) levoFLOXacin Drug Allergy 08-09-2013 [facility] Medications Current Medications Medication Drug Class(es) Dates [...] hours as needed for pain Hydrocodone-Aceta minophen ([place]) 5-325 mg Tablet Discontinued 1 TAB PO [...] to 8 hours as needed for Nausea 10 February 11, 2019 12:00am February 02, 2024 [...] Test Name Value Interpretation Reference Range Facility [facility] 09-05-2024 L -- ---- Specimen: [id number] Received: 09/06/24 Status: LUCIAN Cuellar Num: [id number] Spec Type: Surgical Subm Dr: Jaxson Gonzales Tissues: A Endocervix - Curettings (ENDOCERVICAL CURETTINGS) Procedures: HE/2, Gross/Micro L4, Ki-67, CINtec p16 ---- Age/ Patient Sex Location Account Attending Physician ---- Farzaneh Armstrong 33/F [place] [id number] Jaxson Gonzales ---- SPEC NUM: [id number] RECD: 09/06/24 STATUS: LUCIAN CUELLAR NUM: [id number] PERFECTO: 09/05/24-1048 [facility] DR: Jaxson Gonzales ENTERED: 09/06/[address] [facility] DR: [place],Lab SPEC TYPE: Surgical DEPT: [facility] ENTERED BY: [id number] RECV BY: [id number] ORDERED: HE/2, Gross/Micro L4, Ki-67, CINtec p16 ORDERED: HE/2, Gross/Micro L4, Ki-67, CINtec p16 Pathological Diagnosis Endocervix, curettage: - 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 - Benign endocervical mucosa with formation and squamous metaplasia. - See comment Comment: P16 and Ki-67 immunohistochemical stains were performed on the tissue block with appropriate staining controls and support about diagnosis. Ki 67 proliferative index is high (about 10%). Clinical Information Low-grade squamous intraepithelial lesion Gross Description Received in formalin labeled with the patients name, date of , and ECC is a pale ervin mucoid material, admixed with feathery ervin-pink tissue bits, 1 x 0.8 x 0.2 cm in aggregate. The specimen is filtered and entirely submitted in a single cassette. (1, ns, [id number]) GREG ---- Specimen: [id number] Received: 09/06/24 Status: LUCIAN Cuellar Num: [id number] Spec Type: Surgical Subm Dr: Jaxson Gonzales Tissues: A Endocervix - Curettings (ENDOCERVICAL CURETTINGS) Procedures: HE/2, Gross/Micro L4, Ki-67, CINtec p16 ---- Patient: YonFarzaneh Ventura [id number] ([facility]) ---- Specimen: [id number] Received: 09/06/24 (Continued) Signed (signature on file) Prosper Gu MD 09/08/24 1050 ---- Specimen: [id number] Received: 09/06/24 Status: LUCIAN Cuellar Num: [id number] Spec Type: Surgical Subm Dr: Jaxson Gonzales Tissues: A Endocervix - Curettings (ENDOCERVICAL CURETTINGS) Procedures: HE/2, Gross/Micro L4, Ki-67, CINtec p16 ---- Patient: Farzaneh Armstrong [id number] (Continued) ---- Specimen: [id number] Received: 09/06/24 (Continued) Microscopic Description Microscopic examination is performed. CPT Codes 81294, 97535, 26115 ---- ---- Specimen: [id number] Received: 09/06/24 Status: LUCIAN Cuellar Num: [id number] Spec Type: Surgical Subm Dr: Jaxson Gonzales Tissues: A Endocervix - Curettings (ENDOCERVICAL CURETTINGS) Procedures: HE/Rose, Gross/Micro L4, Ki-67, CINtec p16 ---- Patient: Farzaneh Armstrong [id number] (Continued) ---- Signed (signature on file) Prosper Gu MD 09/08/24 1050 Normal [facility] IGP,APTIMA HPV,AGE GDLNon AGE GDLN ACOG TESTING Note . [facility] Comment on above: TESTS RESULT FLAG UN ITS REF RANGE LAB Clinician Provided Cytology Information Source.............Cervix;Endocervix No. of containers..01 ThinPrep Vial Age Algo ACOG Paula... FLAG LEGEND: L-Low Normal,H-High Normal,LL-Alert Low,HH-Alert High <-Panic Low,>-Panic High,A-Abnormal,AA-Critical Abnormal Performed at: 01 =G [address] [place] [address] Wendy Kumar MD, HPV APTIMA Positive Abnormal Negative [facility] Comment on above: This nucleic acid am plification test detects fourteen high- risk HPV types (16,18,31,33,35,39,45,51,52,56,58,59,66,68) without differentiation. Performed at: =[facility] [address] [id number] Grain Combiner: Wendy Kumar MD, Phone: [phone] Performed at: [address] [id number] Grain Combiner: Wendy Kumar MD, Phone: [phone] IGP, APTIMA HPV, RFX 16/18,45 Note Abnormal . [facility] Comment on above: TESTS RESULT FLAG UN ITS REF RANGE LAB DIAGNOSIS: [A] 02 EPITHELIAL CELL ABNORMALITY. LOW GRADE SQUAMOUS INTRAEPITHELIAL LESION (LSIL). Recommendation: [A] 02 Suggest follow up as clinically appropriate. Specimen adequacy: 02 Satisfactory for evaluation. Endocervical and/or squamous metaplastic cells (endocervical component) are present. Performed by: 03 No Deshpande, Ampoule Filler (ASC) Electronically si... 02 Wendy Kumar MD, Pathologist . 02 Pathologist [...] <-Panic Low,>-Panic High,A-Abnormal,AA-Critical Abnormal Performed at: [address] [place] [address] Wendy Kumar MD, 03 KWCYT [facility] [address] [place] [address] Juaquin Calderon MD, Interpretation and review of laboratory results Abnormal [facility] BRUSH-SPATULA CERVIX ENDOCERVIX [facility] HCG ( test) Ql (U)o n 08-15-2024 Interpretation and review of laboratory results Normal [facility] Preg Test, Ur Negative Negative [facility] Basic Metabolic Brand w/Rfx A1 Con 08-14-2024 Anion gap [Moles/Vol] 10.7 mmol/L Normal 6.0-15.0 [facility] Comment on above: Performed By: #### E BS LIPID, EMP BMP #### [address] Calcium [Mass/Vol] 9.8 mg/dL Normal 8.6-10.3 [facility] Comment on above: Performed By: #### E BS LIPID, EMP BMP #### [place] [address] [place] Chloride [Moles/Vol] 103 mmol/L Normal 98-107 [facility] Comment on above: Performed By: #### E BS LIPID, EMP BMP #### [place] [address] [place] CO2 [Moles/Vol] 29.5 mmol/L Normal 21.0-31.0 [facility] Comment on above: Performed By: #### E BS LIPID, EMP BMP #### [facility] [address] [place] [address] [place] Creatinine [Mass/Vol] 0.73 mg/dL Normal 0.60-1.20 [facility] Comment on above: Performed By: #### E BS LIPID, EMP BMP #### [facility] [address] [place] [address] [place] GFR/1.73 sq M.predicted MDRD (S/P/Bld) [Vol rate/Area] mL/min/{1.73_m2} Normal [facility] Comment on above: Performed By: #### E BS LIPID, EMP BMP #### [facility] [address] [place] [address] [place] Glucose [Mass/Vol] 85 mg/dL Normal 70-100 [facility] Comment on above: Performed By: #### E BS LIPID, EMP BMP #### [facility] [address] [place] [id number] [place] Potassium [Moles/Vol] 4.2 mmol/L Normal 3.5-5.1 [facility] Comment on above: Performed By: #### E BS LIPID, EMP BMP #### [facility] [address] [place] [address] [place] Sodium [Moles/Vol] 139 mmol/L Normal 136-145 [facility] Comment on above: Performed By: #### E BS LIPID, EMP BMP #### [facility] [address] Urea nitrogen [Mass/Vol] 10 mg/dL Normal 7-25 [facility] Comment on above: Performed By: #### E BS LIPID, EMP BMP #### [facility] [address] [place] [id number] [place] Calcium [Mass/volume] in Ser um or PlasmaOrdered By: Wes John on 08-14-2024 Calcium [Mass/Vol] Calcium [Mass/volume ] in Serum or Plasma 8.6-10.3 [facility] Carbon dioxide, total [Moles /volume] in Serum or PlasmaOrdered By: Wes John on 08-14-2024 CO2 [Moles/Vol] Carbon dioxide, tota l [Moles/volume] in Serum or Plasma 21.0-31.0 [facility] Chloride [Moles/volume] in S beth or PlasmaOrdered By: Wes John on 08-14-2024 Chloride [Moles/Vol] Chloride [Moles/volume] in Serum or Plasma 98-107 [facility] Cholesterol [Mass/volume] in Serum or PlasmaOrdered By: Wes John on 08-14-2024 Cholesterol [Mass/Vol] Cholesterol [Mass/volume] in Serum or Plasma 140-200 [facility] Comment on above: Chol less than 200 m g/dl low riskChol 201-239 mg/dl borderline riskChol 240 mg/dl and greater high risk Cholesterol in HDL [Mass/vol ume] in Serum or PlasmaOrdered By: Wes John on 08-14-2024 Cholesterol in HDL [Mass/Vol] Serum or plasma high density lipoprotein (HDL) cholesterol measurement [facility] Comment on above: HDL CHOL ATP-III CLA SSIFICATION Cardiovascular RiskHDL > or equal to 60 mg/dL LOWHDL < 40 mg/dL HIGH Cholesterol in LDL Calc [Mas s/Vol]Ordered By: Wes John on 08-14-2024 Cholesterol in LDL [Mass/Vol] Cholesterol in LDL [Mass/volume] in Serum or Plasma by calculation High 0-100 [facility] Comment on above: LDL ATP III CLASSIFI CATIONLDL less than 100 mg/dL OptimalLDL 100-129 mg/dL Near or above optimalLDL 130-159 mg/dL Borderline highLDL 160-189 mg/dL HighLDL greater than 189 mg/dL Very high Cholesterol in VLDL Calc [Ma ss/Vol]Ordered By: Wes John on 08-14-2024 Cholesterol in VLDL [Mass/Vol] Cholesterol in VLDL [Mass/volume] in Serum or Plasma by calculation [facility] Creatinine [Mass/volume] in Serum or PlasmaOrdered By: Wes John on 08-14-2024 Creatinine [Mass/Vol] Creatinine [Mass/volume] in Serum or Plasma 0.60-1.20 [facility] Glucose [Mass/volume] in Ser um or PlasmaOrdered By: Wes John on 08-14-2024 Glucose [Mass/Vol] Glucose [Mass/volume ] in Serum or Plasma 70-100 [facility] Lipid Profileon 08-14-2024 Cholesterol [Mass/Vol] 194 mg/dL Normal 140-200 [facility] Comment on above: Result Comment: Chol less than 200 mg/dl low risk Chol 201-239 mg/dl borderline risk Chol 240 mg/dl and greater high risk Performed By: #### E BS LIPID, EMP BMP #### [address] Cholesterol in HDL [Mass/Vol] 54 mg/dL Normal [facility] Comment on above: Result Comment: HDL CHOL ATP-III CLASSIFICATION Cardiovascular Risk HDL > or equal to 60 mg/dL LOW HDL < 40 mg/dL HIGH Performed By: #### E BS LIPID, EMP BMP #### [facility] [address] Cholesterol.total/Bethany sterol in HDL [Mass ratio] 3.6 {ratio} Normal <5.0 [facility] Comment on above: Result Comment: PERF ORMED BY: [place] [address] PATHOLOGIST FRONT DESK MONITOR CHARITY MENDIETA M.D. Performed By: #### E BS LIPID, EMP BMP #### [facility] [address] LDL Cholesterol,Calculated 120 mg/dL High 0-100 [facility] Comment on above: Result Comment: LDL ATP III CLASSIFICATION LDL less than 100 mg/dL Optimal LDL 100-129 mg/dL Near or above optimal LDL 130-159 mg/dL Borderline high LDL 160-189 mg/dL High LDL greater than 189 mg/dL Very high Performed By: #### E BS LIPID, EMP BMP #### [address] Triglyceride w/Reflex 101 mg/dL Normal 0-149 [facility] Comment on above: Result Comment: TRIG ATP III CLASSIFICATION TRIG less than 150 mg/dL Normal TRIG 150-199 mg/dL Borderline high TRIG 200-500 mg/dL High TRIG greater than 500 mg/dL Very high Standard traceable to the Center for Disease Conrtrol and Prevention (CDC) test method. Performed By: #### E BS LIPID, EMP BMP #### [facility] [address] VLDL CHOLESTEROL 20 mg/dL Normal [facility] Comment on above: Performed By: #### E BS LIPID, EMP BMP #### [facility] [address] [place] [address] No Panel InformationOrdered By: Wes John on 08-14-2024 Estimated GFR (CKD-EPI) > 60.0 mL/Min [facility] Creatinine Clearance (Chem N/A [facility] Potassium [Moles/volume] in Serum or PlasmaOrdered By: Wes John on 08-14-2024 Potassium [Moles/Vol] Potassium [Moles/volume] in Serum or Plasma 3.5-5.1 [facility] Serum or plasma anion gap de terminationOrdered By: Wes John on 08-14-2024 Anion gap [Moles/Vol] Serum or plasma an ion gap determination 6.0-15.0 [facility] Serum or plasma total choles terol/high density lipoprotein (HDL) cholesterol mass ratOrdered By: Wes John on 08-14-2024 Cholesterol.total/Bethany sterol in HDL [Mass ratio] Serum or plasma total cholesterol/high density lipoprotein (HDL) cholesterol mass rat <5.0 [facility] Sodium [Moles/volume] in Ser um or PlasmaOrdered By: Wes John on 08-14-2024 Sodium [Moles/Vol] Sodium [Moles/volume ] in Serum or Plasma 136-145 [facility] Triglyceride [Mass/volume] i n Serum or PlasmaOrdered By: Wes John on 08-14-2024 Triglyceride [Mass/Vol] Triglyceride [Mass/volume] in Serum or Plasma 0-149 [facility] Comment on above: TRIG ATP III CLASSIF ICATIONTRIG less than 150 mg/dL NormalTRIG 150-199 mg/dL Borderline highTRIG 200-500 mg/dL High TRIG greater than 500 mg/dL Very highStandard traceable to the Center for Disease Conrtrol and Prevention (CDC) test method. Urea nitrogen [Mass/volume] in Serum or PlasmaOrdered By: Wes John on 08-14-2024 Urea nitrogen [Mass/Vol] Urea nitrogen [Mass/volume] in Serum or Plasma 7-25 [facility] No Panel InformationOrdered By: Hilaria Shell on 02-02-2024 Quick Strep (POC) [facility] CBC AUTO DIFFon 06-22-2022 BASO # 0.0 103/ul Normal 0.0-0.1 [facility] Comment on above: Performed By: #### C BC #### [facility] [address] [address] [address] Cain Mcwilliams Basophils/100 WBC (Bld) 0.4 % Normal 0.2-2.0 [facility] Comment on above: Performed By: #### C BC #### [facility] [address] [address] [address] Cain Mcwilliams EO # 0.1 103/ul Normal 0.0-0.7 [facility] Comment on above: Performed By: #### C BC #### [facility] [address] [place] [address] Dr. Cain Mcwilliams Eosinophils/100 WBC (Bld) 2.0 % Normal 0.9-7.0 [facility] Comment on above: Performed By: #### C BC #### [facility] [address] [place] [address] Dr. Cain Mcwilliams Erythrocyte distribution width (RBC) [Ratio] 12.8 % Normal 11.0-15.0 [facility] Comment on above: Performed By: #### C BC #### [facility] [address] [place] [address] Dr. Cain Mcwilliams Hematocrit (Bld) [Volume fraction] 40.6 % Normal 36.0-48.0 [facility] Comment on above: Performed By: #### C BC #### [facility] [address] [place] [address] Dr. Cain Mcwilliams Hemoglobin (Bld) [Mass/Vol] 14.1 g/dL Normal 12.0-16.0 [facility] Comment on above: Performed By: #### C BC #### [facility] [address] [place] [address] Dr. Cain Mcwilliams IG # 0.01 10e3/ul Normal 0.00-0.03 [facility] Comment on above: Performed By: #### C BC #### [facility] [address] [place] [address] Dr. Cain Mcwilliams IG % 0.2 % Normal 0.0-0.5 [facility] Comment on above: Performed By: #### C BC #### [facility] [address] [place] [address] Dr. Cain Mcwilliams LYMPH # 1.1 103/ul Critically low 1.2-3.8 [facility] Comment on above: Performed By: #### C BC #### [facility] [address] [place] [address] Dr. Cain Mcwilliams Lymphocytes/100 WBC (Bld) 24.6 % Normal 20.5-60.0 [facility] Comment on above: Performed By: #### C BC #### [facility] [address] [place] [address] Dr. Cain Mcwilliams MANUAL DIFF REQ NO Normal [facility] Comment on above: Performed By: #### C BC #### [facility] [address] [place] [address] Dr. Cain Mcwilliams MCH (RBC) [Entitic mass] 30.1 pg Normal 26.7-34.0 [facility] Comment on above: Performed By: #### C BC #### [facility] [address] [place] [address] Dr. Cain Mcwilliams MCHC (RBC) [Mass/Vol] 34.7 g/dL Normal 29.9-35.2 [facility] Comment on above: Performed By: #### C BC #### [facility] [address] [place] [address] Dr. Cain Mcwilliams MCV (RBC) [Entitic vol] 86.8 fL Normal 81.0-99.0 [facility] Comment on above: Performed By: #### C BC #### [facility] [address] [place] [address] Dr. Cain Mcwilliams MONO # 0.3 103/ul Normal 0.3-0.8 [facility] Comment on above: Performed By: #### C BC #### [facility] [address] [place] [address] Dr. Cain Mcwilliams Monocytes/100 WBC (Bld) 6.5 % Normal 1.7-12.0 [facility] Comment on above: Performed By: #### C BC #### [facility] [address] [place] [address] Dr. Cain Mcwilliams NEUT # 3.1 103/ul Normal 1.4-6.5 [facility] Comment on above: Performed By: #### C BC #### [facility] [address] [address] [address] Cain Mcwilliams Neutrophils/100 WBC (Bld) 66.3 % Normal 43.0-75.0 [facility] Comment on above: Performed By: #### C BC #### [facility] [address] [address] [address] Cain Mcwilliams Platelet mean volume (Bld) [Entitic vol] 10.9 fL Normal 9.5-13.5 [facility] Comment on above: Performed By: #### C BC #### [facility] [address] [address] [address] Cain Mcwilliams PLT 141 103/ul Critically low 150-450 [facility] Comment on above: Performed By: #### C BC #### [facility] [address] [place] [address] Dr. Cain Mcwilliams RBC 4.68 106/ul Normal 4.20-5.40 [facility] Comment on above: Performed By: #### C BC #### [facility] [address] [address] [address] Cain Mcwilliams WBC 4.6 103/ul Normal 4.0-11.0 [facility] Comment on above: Performed By: #### C BC #### [facility] [address] [place] [address] Dr. Cain Mcwilliams FREE T4on 06-22-2022 Free T4 [Mass/Vol] 0.99 ng/dL Normal 0.76-1.46 [facility] Comment on above: Performed By: #### F T4 #### [facility] [address] [place] [address] Dr. Cain Mcwilliams GLYCOHEMOGLOBIN A1Con 2022 ADA RECOMMENDATION SEE BELOW Normal [facility] Comment on above: Result Comment: ADA RECOMMENDED LIMIT 4.0 - 6.0 ADA THERAPEUTIC TARGET < 7.0 ACTION SUGGESTED > 7.0 Performed By: #### A 1C #### [facility] [address] [place] [address] Dr. Cain Mcwilliams Glucose [Mass/Vol] 97 mg/dL Normal [facility] Comment on above: Performed By: #### A 1C #### [facility] [address] [place] [address] Dr. Cain Mcwilliams HbA1c (Bld) [Mass fraction] 5.0 % Normal 4.5-6.2 [facility] Comment on above: Performed By: #### A 1C #### [facility] [address] [place] [address] Dr. Cain Mcwilliams PROTIMEon 06-22-2022 INR Coag (PPP) [Relative time] 0.95 {INR} Normal [facility] Comment on above: Performed By: #### C BC #### [facility] [address] [place] [address] Dr. Cain Mcwilliams INR GUIDELINES SEE BELOW Normal [facility] Comment on above: Result Comment: ABIODUN RED INR: 2.0 - 3.0 CONDITIONS NOT LISTED BELOW 2.5 - 3.5 FOR PROSTHETIC HEART VALVE REPLACEMENT 2.5 - 3.5 RECURRENT THROMBOSIS Performed By: #### C BC #### [facility] [address] [place] [address] Dr. Cain Mcwilliams PT Coag (PPP) [Time] 10.1 s Normal 9.0-11.6 [facility] Comment on above: Performed By: #### C BC #### [facility] [address] [place] [address] Dr. Cain Mcwilliams PTTon 06-22-2022 aPTT Coag (Bld) [Time] 29.4 s Normal 22.3-36.2 [facility] Comment on above: Performed By: #### C BC #### [facility] [address] [place] [address] Dr. Cain Mcwilliams TSHon 06-22-2022 TSH 1.596 uIU/mL Normal 0.358-3.740 [facility] Comment on above: Performed By: #### T SH #### [facility] [address] [place] [address] Dr. Cain Mcwilliams US PELVIS AND TRANSVAGon US PELVIS AND TRANSVAG EXAMINATION: US P SHEA AND TRANSVAG HISTORY: Pelvic and perineal pain [...] MALICK ESPINOZA Date: 2022-06-22 16:47 Normal [facility] CBC AUTO DIFFon 10-09-2021 BASO # 0.0 103/ul Normal 0.0-0.1 [facility] Comment on above: Performed By: #### C BC #### [facility] [address] [place] [address] Dr. Cain Mcwilliams Basophils/100 WBC (Bld) 0.4 % Normal 0.2-2.0 [facility] Comment on above: Performed By: #### C BC #### [facility] [address] [place] [address] Dr. Cain Mcwilliams EO # 0.0 103/ul Normal 0.0-0.7 [facility] Comment on above: Performed By: #### C BC #### [facility] [address] [place] [address] Dr. Cain Mcwilliams Eosinophils/100 WBC (Bld) 0.8 % Critically low 0.9-7.0 [facility] Comment on above: Performed By: #### C BC #### [facility] [address] [place] [address] Dr. Cain Mcwilliams Erythrocyte distribution width (RBC) [Ratio] 12.8 % Normal 11.0-15.0 [facility] Comment on above: Performed By: #### C BC #### [facility] [address] [place] [address] Dr. Cain Mcwilliams Hematocrit (Bld) [Volume fraction] 41.6 % Normal 36.0-48.0 [facility] Comment on above: Performed By: #### C BC #### [facility] [address] [place] [address] Dr. Cain Mcwilliams Hemoglobin (Bld) [Mass/Vol] 13.8 g/dL Normal 12.0-16.0 [facility] Comment on above: Performed By: #### C BC #### [facility] [address] [place] [address] Dr. Cain Mcwilliams IG # 0.01 10e3/ul Normal 0.00-0.03 [facility] Comment on above: Performed By: #### C BC #### [facility] [address] [place] [address] Dr. Cain Mcwilliams IG % 0.2 % Normal 0.0-0.5 [facility] Comment on above: Performed By: #### C BC #### [facility] [address] [place] [address] Dr. Cain Mcwilliams LYMPH # 1.3 103/ul Normal 1.2-3.8 [facility] Comment on above: Performed By: #### C BC #### [facility] [address] [place] [address] Dr. Cain Mcwilliams Lymphocytes/100 WBC (Bld) 27.1 % Normal 20.5-60.0 [facility] Comment on above: Performed By: #### C BC #### [facility] [address] [place] [address] Dr. Cain Mcwilliams MANUAL DIFF REQ NO Normal [facility] Comment on above: Performed By: #### C BC #### [facility] [address] [place] [address] Dr. Cain Mcwilliams MCH (RBC) [Entitic mass] 30.5 pg Normal 26.7-34.0 [facility] Comment on above: Performed By: #### C BC #### [facility] [address] [place] [address] Dr. Cain Mcwilliams MCHC (RBC) [Mass/Vol] 33.2 g/dL Normal 29.9-35.2 [facility] Comment on above: Performed By: #### C BC #### [facility] [address] [address] [address] Cain Mcwilliams MCV (RBC) [Entitic vol] 91.8 fL Normal 81.0-99.0 [facility] Comment on above: Performed By: #### C BC #### [facility] [address] [address] [address] Cain Mcwilliams MONO # 0.3 103/ul Normal 0.3-0.8 [facility] Comment on above: Performed By: #### C BC #### [facility] [address] [place] [address] Dr. Cain Mcwilliams Monocytes/100 WBC (Bld) 6.3 % Normal 1.7-12.0 [facility] Comment on above: Performed By: #### C BC #### [facility] [address] [place] [address] Dr. Cain Mcwilliams NEUT # 3.1 103/ul Normal 1.4-6.5 [facility] Comment on above: Performed By: #### C BC #### [facility] [address] [place] [address] Dr. Cain Mcwilliams Neutrophils/100 WBC (Bld) 65.2 % Normal 43.0-75.0 [facility] Comment on above: Performed By: #### C BC #### [facility] [address] [place] [address] Dr. Cain Mcwilliams Platelet mean volume (Bld) [Entitic vol] 11.3 fL Normal 9.5-13.5 [facility] Comment on above: Performed By: #### C BC #### [facility] [address] [place] [address] Dr. Cain Mcwilliams PLT 149 103/ul Critically low 150-450 [facility] Comment on above: Performed By: #### C BC #### [facility] [address] [address] [address] Cain Mcwilliams RBC 4.53 106/ul Normal 4.20-5.40 [facility] Comment on above: Performed By: #### C BC #### [facility] [address] [place] [address] Dr. Cain Mcwilliams WBC 4.8 103/ul Normal 4.0-11.0 [facility] Comment on above: Performed By: #### C BC #### [facility] [address] [place] [address] Dr. Cain Mcwilliams PREG QUANT HCGon 10-09-2021 HCG QUANT <1 Normal [facility] Comment on above: Performed By: #### C BC #### [facility] [address] [place] [address] Dr. Cain Mcwilliams HCG RANGE SEE BELOW [facility] Comment on above: Result Comment: 5-50 0-1 WEEK 40-300 1-2 WEEKS 100-1,000 2-3 WEEKS 500-6,000 3-4 WEEKS 5,000-200,000 1-2 MONTHS 10,000-100,000 2-3 MONTHS 3,000-50,000 2ND TRIMESTER 1,000-50,000 3RD TRIMESTER Performed By: #### C BC #### [facility] [address] [place] [address] Dr. Cain Mcwilliams PAP ACOG PANEL 2: 30 to 65on 09-02-2021 . . Normal [facility] Comment on above: Result Comment: Perf ormed at: WB Performed By: #### C BC #### [facility] [address] [place] [address] Dr. Cain Mcwilliams Age Gdln ACOG Testing 30-65 Normal [facility] Comment on above: Performed By: #### C BC #### [facility] [address] [place] [address] Dr. Cain Mcwilliams DIAGNOSIS: Comment Normal [facility] Comment on above: Result Comment: NEGA TIVE FOR INTRAEPITHELIAL LESION OR MALIGNANCY. THIS SPECIMEN WAS RESCREENED PART OF OUR CORE CUTTER AND REAMER PROGRAM. Performed at: WB Performed By: #### C BC #### [facility] [address] [place] [address] Dr. Cain Mcwilliams HPV Aptima Negative Normal Negative [facility] Comment on above: Result Comment: This nucleic acid amplification test detects fourteen high-risk HPV types (16,18,31,33,35,39,45,51,52,56,58,59,66,68) without differentiation. Performed at: =G Performed By: #### C BC #### [facility] [address] [place] [address] Dr. Cain Mcwilliams Methodology: Comment Normal [facility] Comment on above: Result Comment: This liquid based ThinPrep(R) pap test was screened with the use of an image guided system. Performed at: WB Performed By: #### C BC #### [facility] [address] [place] [address] Dr. Cain Mcwilliams Note: Comment Normal [facility] Comment on above: Result Comment: The Pap smear is a screening test designed to aid in the detection of premalignant and malignant conditions of the uterine cervix. It is not a diagnostic procedure and should not be used as the sole means of detecting cervical cancer. Both false-positive and false-negative reports do occur. . Performed at: WB Performed By: #### C BC #### [facility] [address] [place] [address] Dr. Cain Mcwilliams Performed by: Comment Normal [facility] Comment on above: Result Comment: Martha Odonnell, Ampoule Filler (ASCP) Performed at: WB Performed By: #### C BC #### [facility] [address] [place] [address] Dr. Cain Mcwilliams QC reviewed by: Comment Normal [facility] Comment on above: Result Comment: Steven Silver, Supervisory Ampoule Filler (ASCP) Performed at: WB Performed By: #### C BC #### [facility] [address] [place] [address] Dr. Cain Mcwilliams Specimen adequacy: Comment Normal [facility] Comment on above: Result Comment: Sati sfactory for evaluation. Endocervical and/or squamous metaplastic cells (endocervical component) are present. Performed at: WB Performed By: #### C BC #### [facility] [address] [address] [address] Cain Mcwilliams US PELVIS AND TRANSVAGon US PELVIS AND TRANSVAG EXAMINATION: US P SHEA AND TRANSVAG HISTORY: Excessive and frequent menstruation [...] by: MALICK ESPINOZA Date: 2021-08-30 10:29 Normal [facility] US SINGLE QUAD RT [...] by: MALICK ESPINOZA Date: 2021-08-30 10:31 Normal [facility] CBC W MANUAL DIFFon 08-25-19 22 ATYPICAL LYMPH # Normal [facility] Comment on above: Performed By: #### C BCMAN #### [facility] [address] [place] [address] Dr. Cain Mcwilliams ATYPICAL LYMPH % Normal [facility] Comment on above: Performed By: #### C BCMAN #### [facility] [address] [place] [address] Dr. Cain Mcwilliams BAND # 0.2 103/ul Normal 0.0-0.3 [facility] Comment on above: Performed By: #### C BCMAN #### [facility] [address] [place] [address] Dr. Cain Mcwilliams BAND % 3 % Normal 0-5 [facility] Comment on above: Performed By: #### C BCISMAEL #### [facility] [address] [place] [address] Dr. Cain Mcwilliams BASOM # 0.00 103/ul Normal 0.00-0.10 [facility] Comment on above: Performed By: #### C BCISMAEL #### [facility] [address] [place] [address] Dr. Cain Mcwilliams BASOM % 0.0 % Critically low 0.2-2.0 The [facility] Comment on above: Performed By: #### C BCISMAEL #### [facility] [address] [place] [address] Dr. Cain Mcwilliams BLAST # Normal [facility] Comment on above: Performed By: #### C BCISMAEL #### [facility] [address] [place] [address] Dr. Cain Mcwilliams BLAST % Normal [facility] Comment on above: Performed By: #### C BCISMAEL #### [facility] [address] [place] [address] Dr. Cain Mcwilliams CORRECTED WBC Normal 4.0-11.0 [facility] Comment on above: Performed By: #### C BCISMAEL #### [facility] [address] [place] [address] Dr. Cain Mcwilliams EOS # 0.00 103/ul Normal 0.00-0.70 [facility] Comment on above: Performed By: #### C RAY #### [facility] [address] [address] [address] Cain Mcwilliams EOS% 0.0 % Critically low 0.9-7.0 [facility] Comment on above: Performed By: #### C RAY #### [facility] [address] [address] [address] Cain Mcwilliams HCT 44.2 % Normal 36.0-48.0 [facility] Comment on above: Performed By: #### C RAY #### [facility] [address] [address] [address] aCin Mcwilliams HGB 14.6 g/dl Normal 12.0-16.0 [facility] Comment on above: Performed By: #### C RAY #### [facility] [address] [address] [address] Cain Mcwilliams LYMPHM # 0.34 103/ul Critically low 1.20-3.80 [facility] Comment on above: Performed By: #### C RAY #### [facility] [address] [address] [address] Cain Mcwilliams LYMPHM% 5.0 % Critically low 20.5-60.0 [facility] Comment on above: Performed By: #### C RAY #### [facility] [address] [address] [address] Cain Mcwilliams MCH 30.0 pg Normal 26.7-34.0 [facility] Comment on above: Performed By: #### C RAY #### [facility] [address] [address] [address] Cain Mcwilliams MCHC 33.0 g/dl Normal 29.9-35.2 [facility] Comment on above: Performed By: #### C RAY #### [facility] [address] [address] [address] Cain Mcwilliams MCV 90.9 fL Normal 81.0-99.0 [facility] Comment on above: Performed By: #### C RAY #### [facility] [address] [place] [address] Dr. Cain Mcwilliams METAMYELOCYTE # Normal [facility] Comment on above: Performed By: #### C BCMAN #### [facility] [address] [place] [address] Dr. Cain Mcwilliams METAMYELOCYTE % Normal [facility] Comment on above: Performed By: #### C RAY #### [facility] [address] [place] [address] Dr. Cain Mcwilliams MONOM# 0.21 103/ul Critically low 0.30-0.80 [facility] Comment on above: Performed By: #### C RAY #### [facility] [address] [place] [address] Dr. Cain Mcwilliams MONOM% 3.0 % Normal 1.7-12.0 [facility] Comment on above: Performed By: #### C RAY #### [facility] [address] [place] [address] Dr. Cain Mcwilliams MPV 11.3 fL Normal 9.5-13.5 [facility] Comment on above: Performed By: #### C MOHANMAN #### [facility] [address] [place] [address] Dr. Cain Mcwilliams MYELOCYTE # Normal [facility] Comment on above: Performed By: #### C RAY #### [facility] [address] [place] [address] Dr. Cain Mcwilliams MYELOCYTE % Normal [facility] Comment on above: Performed By: #### C RAY #### [facility] [address] [place] [address] Dr. Cain Mcwilliams NRBC Normal [facility] Comment on above: Performed By: #### C BCMAN #### [facility] [address] [place] [address] Dr. Cain Mcwilliams PLT 153 103/ul Normal 150-450 [facility] Comment on above: Performed By: #### C RAY #### [facility] [address] [place] [address] Dr. Cain Mcwilliams RBC 4.86 106/ul Normal 4.20-5.40 [facility] Comment on above: Performed By: #### C BCMAN #### [facility] [id number] Cain Mcwilliams RDW 12.5 % Normal 11.0-15.0 [facility] Comment on above: Performed By: #### C BCMAN #### [facility] [address] [place], [place] [address] Dr. Cain Mcwilliams SEG # 6.14 103/ul Normal 1.40-6.50 [facility] Comment on above: Performed By: #### C BCMAN #### [facility] [id number] Cain Mcwilliams SEG % 89.0 % Critically high 43.0-75.0 [facility] Comment on above: Performed By: #### C BCMAN #### [facility] [id number] Cain Mcwilliams WBC 6.9 103/ul Normal 4.0-11.0 [facility] Comment on above: Performed By: #### C BCMAN #### [facility] [address] [place], [place] [address] ABD/PELV W CONon [...] ISHMAEL BAINS Date: 2021-08-24 17:39 Normal [facility] CULTURE BLOODon 08-24-2021 Microscopic examination of blood, culture Culture Observations: No growth at 5 days. Normal [facility] Comment on above: Performed By: #### C BC #### [facility] [address] [place] [address] Dr. Cain Mcwilliams Microscopic examination of blood, culture Culture Observations: No growth at 5 days Normal [facility] Comment on above: Performed By: #### C BC #### [facility] [address] [place] [address] Dr. Cain Mcwilliams [facility]on SARS-CoV-2 (COVID-19) RNA DANIELLE+probe Ql (Unsp spec) Not detected Normal NOT DETECTED [facility] Comment on above: Result Comment: When [...] for this test is supported by the [employer] of [employer] and Human Service's declaration that [...] used). Performed By: #### C VDTB #### [facility] [address] [place] [address] Dr. Cain Mcwilliams ER URINE PROFILEon 2 Bilirubin Ql (U) Negative Normal NEGATIVE [facility] Comment on above: Performed By: #### C BC #### [facility] [address] [place] [address] Dr. Cain Mcwilliams Clarity (U) SL CLOUDY Abnormal CLEAR [facility] Comment on above: Performed By: #### C BC #### [facility] [address] [place] [address] Dr. Cain Mcwilliams Color (U) YELLOW Normal YELLOW [facility] Comment on above: Performed By: #### C BC #### [facility] [address] [place] [address] Dr. Cain MANE A micrscopic examination will be performed if indicated. Normal [facility] Comment on above: Performed By: #### C BC #### [facility] [address] [place] [address] Dr. Cain Mcwilliams Glucose Ql (U) Negative Normal NEGATIVE [facility] Comment on above: Performed By: #### C BC #### [facility] [address] [place] [address] Dr. Cain Mcwilliams Hemoglobin Ql (U) Negative Normal NEGATIVE [facility] Comment on above: Performed By: #### C BC #### [facility] [address] [place] [address] Dr. Cain Mcwilliams Ketones Ql (U) Negative Normal NEGATIVE [facility] Comment on above: Performed By: #### C BC #### [facility] [address] [place] [address] Dr. Cain Mcwilliams LEUKOCYTES Negative Normal NEGATIVE [facility] Comment on above: Performed By: #### C BC #### [facility] [address] [place] [address] Dr. Cain Mcwilliams Nitrite Ql (U) Negative Normal NEGATIVE [facility] Comment on above: Performed By: #### C BC #### [facility] [address] [place] [address] Dr. Cain Mcwilliams pH (U) 5.5 [pH] Normal 5-9 [facility] Comment on above: Performed By: #### C BC #### [facility] [address] [place] [address] Dr. Cain Mcwilliams SPEC GRAVITY 1.025 Normal 1.005-<=1.02 5 [facility] Comment on above: Performed By: #### C BC #### [facility] [address] [place] [address] Dr. Cain Mcwilliams UA PROTEIN Negative Normal NEGATIVE/ TRACE [facility] Comment on above: Performed By: #### C BC #### [facility] [address] [place] [address] Dr. Cain Mcwilliams UR MICRO IND NOT INDICATED Normal [facility] Comment on above: Performed By: #### C BC #### [facility] [address] [place] [address] Dr. Cain Mcwilliams Urobilinogen Qn (U) 0.2 {Claire'U}/dL Normal 0.2 - 1. 0 [facility] Comment on above: Performed By: #### C BC #### [facility] [address] [place] [address] Dr. Cain Mcwilliams LACTATE/LACTIC ACIDon 2021 Lactate [Moles/Vol] 2.1 mmol/L Critically high 0.7-2.0 [facility] Comment on above: Performed By: #### L ACT #### [facility] [address] [place] [address] Dr. Cain Mcwilliams LIPASEon 08-24-2021 Lipase [Catalytic activity/Vol] 102.0 U/L Normal 23.0-300.0 [facility] Comment on above: Performed By: #### C MP, LIPA #### [facility] [address] [place] [address] Dr. Cain Mcwilliams PREG HCG QUALon 08-24-2021 , QUAL Negative Normal NEGATIVE [facility] Comment on above: Performed By: #### C BC #### [facility] [address] [place] [address] Dr. Cain Mcwilliams PROF 14(COMP METB)on 022 Albumin [Mass/Vol] 3.7 g/dL Normal 3.4-5.0 [facility] Comment on above: Performed By: #### C BENEDICTO, LIPA #### [facility] [address] [place] [address] Dr. Cain Mcwilliams Albumin/Globulin [Mass ratio] 1.1 {ratio} Normal [facility] Comment on above: Performed By: #### C MP, LIPA #### [facility] [address] [place] [address] Dr. Cain Mcwilliams ALP [Catalytic activity/Vol] 103 U/L Normal 46-116 [facility] Comment on above: Performed By: #### C MP, LIPA #### [facility] [address] [place] [address] Dr. Cain Mcwilliams ALT [Catalytic activity/Vol] 18 U/L Normal 14-59 [facility] Comment on above: Performed By: #### C MP, LIPA #### [facility] [address] [place] [address] Dr. Cain Mcwilliams Anion gap [Moles/Vol] 15.3 mmol/L Normal [facility] Comment on above: Performed By: #### C MP, LIPA #### [facility] [address] [place] [address] Dr. Cain Mcwilliams AST [Catalytic activity/Vol] 13 U/L Critically low 15-37 [facility] Comment on above: Performed By: #### C MP, LIPA #### [facility] [address] [place] [address] Dr. Cain Mcwilliams Bilirubin [Mass/Vol] 0.7 mg/dL Normal 0.2-1.3 [facility] Comment on above: Performed By: #### C MP, LIPA #### [facility] [address] [place] [address] Dr. Cian Mcwilliams Calcium [Mass/Vol] 8.3 mg/dL Critically low 8.5-10.1 [facility] Comment on above: Performed By: #### C MP, LIPA #### [facility] [address] [place] [address] Dr. Cain Mcwilliams Chloride [Moles/Vol] 102 mmol/L Normal 98-107 [facility] Comment on above: Performed By: #### C MP, LIPA #### [facility] [address] [place] [address] Dr. Cain Mcwilliams CO2 [Moles/Vol] 22.2 mmol/L Normal 22.0-30.0 [facility] Comment on above: Performed By: #### C MP, LIPA #### [facility] [address] [place] [address] Dr. Cain Mcwilliams Creatinine [Mass/Vol] 0.93 mg/dL Normal 0.52-1.04 [facility] Comment on above: Performed By: #### C MP, LIPA #### [facility] [address] [place] [address] Dr. Cain Mcwilliams EGFR-AF TOGOLESE >60 Normal >=60 [facility] Comment on above: Performed By: #### C MP, LIPA #### [facility] [address] [place] [address] Dr. Cain Mcwilliams EGFR-NON AF TOGOLESE >60 Normal >=60 [facility] Comment on above: Performed By: #### C MP, LIPA #### [facility] [address] [place] [address] Dr. Cain Mcwilliams Globulin (S) [Mass/Vol] 3.5 g/dL Normal [facility] Comment on above: Performed By: #### C MP, LIPA #### [facility] [address] [place] [address] Dr. Cain Mcwilliams Glucose [Mass/Vol] 108 mg/dL Critically high 74-106 [facility] Comment on above: Performed By: #### C BENEDICTO, LIPA #### [facility] [address] [address] [address] Cain Mcwilliams Potassium [Moles/Vol] 3.5 mmol/L Normal 3.4-5.0 [facility] Comment on above: Performed By: #### C MP, LIPA #### [facility] [address] [place] [address] Dr. Cain Mcwilliams Protein [Mass/Vol] 7.2 g/dL Normal 6.1-8.2 [facility] Comment on above: Performed By: #### C BENEDICTO, LIPA #### [facility] [address] [place] [address] Dr. Cain Mcwilliams Sodium [Moles/Vol] 136 mmol/L Critically low 137-145 [facility] Comment on above: Performed By: #### C BENEDITCO, LIPA #### [facility] [address] [place] [address] Dr. Cain Mcwilliams Urea nitrogen [Mass/Vol] 11.0 mg/dL Normal 7.0-18.0 [facility] Comment on above: Performed By: #### C BENEDICTO, LIPA #### [facility] [address] [place] [address] Dr. Cain Mcwilliams Urea nitrogen/Creatinine [Mass ratio] 11.8 mg/mg Normal [facility] Comment on above: Performed By: #### C BENEDICTO, LIPA #### [facility] [address] [place] [address] Dr. Cain Mcwilliams Automated basophil %on 02-11 Basophils/100 WBC (Bld) 0.4 % F [facility] Automated basophil counton 0 02-11-2019 Basophils (Bld) [#/Vol] 0.0 10*3/uL 0.0-0.2 [facility] Automated blood lymphocyte c ount (number/volume)on 02-11-2019 Lymphocytes (Bld) [#/Vol] 0.8 10*3/uL 1.00-4.8 [facility] Automated blood lymphocyte c ount as percentage of total leukocyteson 02-11-2019 Lymphocytes/100 WBC (Bld) 21.0 % [facility] Automated blood monocyte cou nton 02-11-2019 Monocytes (Bld) [#/Vol] 0.2 10*3/uL 0.0-0.8 [facility] Automated blood platelet cou nt (count/volume)on 02-11-2019 Platelets (Bld) [#/Vol] 141 10*3/uL 150-450 [facility] Automated blood platelet lyn n volume measurementon 02-11-2019 Platelet mean volume (Bld) [Entitic vol] 9.4 fL 6.3-10.7 [facility] Automated eosinophil %on Eosinophils/100 WBC (Bld) 1.1 % [facility] Automated eosinophil counton 02-11-2019 Eosinophils (Bld) [#/Vol] 0.0 10*3/uL 0.0-0.45 [facility] Automated erythrocyte distri bution width ratioon 02-11-2019 Erythrocyte distribution width (RBC) [Ratio] 12.4 % 11.9-15.3 [facility] Automated erythrocyte mean c orpuscular hemoglobin (mass per erythrocyte)on 02-11-2019 MCH (RBC) [Entitic mass] 30.3 pg 24.7-34.3 [facility] Automated erythrocyte mean c orpuscular hemoglobin concentration measurement (mass/volon 02-11-2019 MCHC (RBC) [Mass/Vol] 33.8 g/dL 32.0-35.0 [facility] Automated erythrocyte mean c orpuscular volumeon 02-11-2019 MCV (RBC) [Entitic vol] 89.6 fL 80-100 F [facility] Automated erythrocytes count in urine sediment (number/area)on 02-11-2019 RBC Auto (Urine sed) [#/Area] 10-19 [HPF] [facility] Automated leukocytes count i n urine sediment (number/area)on 02-11-2019 WBC Auto (Urine sed) [#/Area] 3-4 [HPF] [facility] Automated monocyte %on 02-11 Monocytes/100 WBC (Bld) 5.6 % F [facility] Automated neutrophil %on Neutrophils/100 WBC (Bld) 71.9 % [facility] [facility] Automated urine color determ inationon 02-11-2019 Color (U) Yellow Yellow [facility] Blood erythrocytes automated count (number/volume)on 02-11-2019 RBC (Bld) [#/Vol] 4.66 10*6/uL 3.60-5.00 [facility] Blood hemoglobin measurement (mass/volume)on 02-11-2019 Hemoglobin (Bld) [Mass/Vol] 14.1 g/dL 11.8-15.4 [facility] Blood leukocytes automated c ount (number/volume)on 02-11-2019 WBC (Bld) [#/Vol] 3.8 10*3/uL 3.8-11.6 [facility] Blood neutrophil count by au tomated method (number/volume)on 02-11-2019 Neutrophils (Bld) [#/Vol] 2.7 10*3/uL 1.8-7.7 [facility] Estimated glomerular filtrat ion rate (GFR) non- Americanon 02-11-2019 GFR/1.73 sq M predicted among non-blacks MDRD (S/P/Bld) [Vol rate/Area] mL/min/{1.73_m2} [facility] Hematocrit [Volume Fraction] of Blood by Automated counton 02-11-2019 Hematocrit (Bld) [Volume fraction] 41.7 % 34.0-46.4 [facility] Otheron 02-11-2019 GFR/1.73 sq M.predicted MDRD (S/P/Bld) [Vol rate/Area] mL/min/{1.73_m2} [facility] Comment on above: GFR estimated refere nce range: According to KDOQI guidelines, <60 ml/min/1.73m2 is sufficient to diagnose a patient with chronic kidney disease. Nucleated RBC/100 WBC (Bld) [Ratio] 0.1 % 0-0.5 [facility] Creatinine Clearance (Chem [id number] [facility] Serum or plasma calcium kevin urement (mass/volume)on 02-11-2019 Calcium [Mass/Vol] 9.5 mg/dL 8.2-10.2 [facility] Serum or plasma chloride lyn surement (moles/volume)on 02-11-2019 Chloride [Moles/Vol] 107 mmol/L 95-114 [facility] Serum or plasma creatinine m easurement with calculation of estimated glomerular filtron 02-11-2019 Creatinine [Mass/Vol] 0.86 mg/dL 0.44-1.03 [facility] Serum or plasma glucose kevin urement (mass/volume)on 02-11-2019 Glucose [Mass/Vol] 103 mg/dL 70-100 [facility] Comment on above: ADA recommended refe rence rangeRandom Glucose Reference Range is dependent on time and content of last meal. Glucose of more than 200 mg/dL in a nonstressed, ambulatory subject supports the diagnosis of Diabetes Mellitus. Serum or plasma potassium me asurement (moles/volume)on 02-11-2019 Potassium [Moles/Vol] 3.9 mmol/L 3.5-5.1 [facility] Serum or plasma sodium measu rement (moles/volume)on 02-11-2019 Sodium [Moles/Vol] 139 mmol/L 136-146 [facility] Serum or plasma total carbon dioxide measurement (moles/volume)on 02-11-2019 CO2 [Moles/Vol] 24.6 mmol/L 22.0-30.0 [facility] Serum or plasma urea nitroge n measurement (mass/volume)on 02-11-2019 Urea nitrogen [Mass/Vol] 8 mg/dL 9-23 [facility] Specific gravity of Urine by Automated test stripon 02-11-2019 Specific gravity (U) [Rel density] 1.021 1.001-1.030 [facility] Squamous epithelial cells de tection in urine sediment by light microscopyon 02-11-2019 Epithelial cells.squamous LM Ql (Urine sed) 5-9 [HPF] [facility] Urinalysison 02-11-2019 Hyaline casts LM Ql (Urine sed) 0-8 [LPF] [facility] Urine bacteria detection by automated methodon 02-11-2019 Bacteria Auto Ql (U) None seen None Seen [facility] Urine clarity by refractomet ry automatedon 02-11-2019 Clarity Refractometry automated (U) Clear Clear [facility] Urine glucose measurement by automated test strip (mass/volume)on 02-11-2019 Glucose Auto test strip (U) [Mass/Vol] Normal mg/dL Normal [facility] Urine hemoglobin detection b y automated test stripon 02-11-2019 Hemoglobin Auto test strip Ql (U) 2+ Negative [facility] Urine human chorionic gonado tropin (hCG) detection by immunoassayon 02-11-2019 HCG ( test) Ql (U) Negative Negative [facility] Urine ketones measurement by automated test strip (mass/volume)on 02-11-2019 Ketones (U) [Mass/Vol] Negative Negative [facility] Urine leukocyte esterase det ection by automated test stripon 02-11-2019 Leukocyte esterase Auto test strip Ql (U) Negative Negative [facility] Urine nitrite detection by t est stripon 02-11-2019 Nitrite Ql (U) Negative Negative [facility] Urine pH measurement by auto mated test stripon 02-11-2019 pH (U) 5.0 [pH] 5.0-9.0 [facility] Urine protein measurement by automated test strip (mass/volume)on 02-11-2019 Protein (U) [Mass/Vol] Negative Negative [facility] Urine total bilirubin detect ion by test stripon 02-11-2019 Bilirubin Ql (U) Negative Negative [facility] Urine urobilinogen measureme nt by automated test strip (mass/volume)on 02-11-2019 Urobilinogen (U) [Mass/Vol] Normal mg/dL Normal [facility] Vital Signs Date Time Vital Sign Value Performing Clinician Facility 08-22-2024 [id number] Body height 165.1 cm Corrine MOSELEY Work Phone: [facility] 08-22-2024 11:19-040 Body mass index (BMI) [Ratio] 34.28 kg/m2 Corrine MOSELEY Work Phone: [facility] 08-22-2024 11:[id number] Body temperature 97.39 [degF] Corrine MOSELEY Work Phone: [facility] 08-22-2024 11:19-0400 Body weight 93.44 kg Corrine Ambrosio PA Work Phone: [facility] 08-22-2024 11:19-0400 Diastolic blood pressure 78 mm[Hg] Corrine Ambrosio PA Work Phone: [facility] 08-22-2024 11:19-0400 Heart rate 87 /min Corrine Ambrosio PA Work Phone: [facility] 08-22-2024 11:19-0400 SaO2% (BldA) [Mass fraction] 99 % Corrine Ambrosio PA Work Phone: [facility] 08-22-2024 11:19-0400 Systolic blood pressure 118 mm[Hg] Corrine Ambrosio PA Work Phone: [facility] 08-15-2024 11:35-0400 Body mass index (BMI) [Ratio] 34.61 kg/m2 Jaxson Christian DO Work Phone: [facility] 08-15-2024 11:35-0400 Body weight 94.35 kg Jaxson Christian DO Work Phone: [facility] 08-15-2024 11:35-0400 Diastolic blood pressure 74 mm[Hg] Ajxson Christian DO Work Phone: [facility] 08-15-2024 11:35-0400 Systolic blood pressure 110 mm[Hg] Jaxson Christian DO Work Phone: [facility] 05-22-2024 14:37-0500 Body height 165.1 cm Corrine Ambrosio PA Work Phone: [facility] 05-22-2024 14:37-0500 Body mass index (BMI) [Ratio] 34.95 kg/m2 Corrine Ambrosio PA Work Phone: [facility] 05-22-2024 14:37-0500 Body temperature 97.39 [degF] Corrine Ambrosio PA Work Phone: [facility] 05-22-2024 14:37-0500 Body weight 95.25 kg Corrine Ambrosio PA Work Phone: [facility] 05-22-2024 14:37-0500 Diastolic blood pressure 78 mm[Hg] Corrine Ambrosio PA Work Phone: [facility] 05-22-2024 14:37-0500 Heart rate 87 /min Corrine Ambrosio PA Work Phone: [facility] 05-22-2024 14:37-0500 SaO2% (BldA) [Mass fraction] 98 % Corrine Brianda PA Work Phone: [facility] 05-22-2024 14:37-0500 Systolic blood pressure 118 mm[Hg] Corrine Brianda PA Work Phone: [facility] 02-02-2024 18:37-0400 Body height 165.1 cm [facility] 02-02-2024 18:37-0400 Body mass index (BMI) [Ratio] 38.2 kg/m2 [facility] 02-02-2024 18:37-0400 Body temperature 98.7 [degF] [facility] 02-02-2024 18:37-0400 Body weight 104.32 kg [facility] 02-02-2024 18:37-0400 Diastolic blood pressure 67 mm[Hg] [facility] 02-02-2024 18:37-0400 Heart rate 85 /min [facility] 02-02-2024 18:37-0400 Respiratory rate 18 /min [facility] 02-02-2024 18:37-0400 SaO2% (BldA) [Mass fraction] 98 % [facility] 02-02-2024 18:37-0400 Systolic blood pressure 112 mm[Hg] [facility] 01-12-2024 15:45-0400 Body temperature 98.01 [degF] Summer Workman PA Work Phone: [facility] 01-12-2024 15:45-0400 Diastolic blood pressure 72 mm[Hg] Summer Workman PA Work Phone: [facility] 01-12-2024 15:45-0400 Heart rate 80 /min Summer Workman PA Work Phone: [facility] 01-12-2024 15:45-0400 SaO2% (BldA) [Mass fraction] 99 % Summer Workman PA Work Phone: [facility] 01-12-2024 15:45-0400 Systolic blood pressure 120 mm[Hg] Tung Workman PA Work Phone: [facility] 02-11-2019 13:45-0400 BP Diastolic 61 mm[Hg] [facility] 02-11-[facility] 13:45-0400 BP Systolic 105 mm[Hg] Gabino [facility] 02-11-2019 13:45-0400 Pulse (Heart Rate) 74 /min Gabino [facility] 02-11-2019 13:45-0400 Pulse Oximetry 100 % Gabino [facility] 02-11-2019 13:45-0400 Respiratory Rate 19 /min Gabino [facility] 02-11-2019 11:03-0400 BMI (Body Mass Index) 25.7 kg/m2 Gabino [facility] 02-11-2019 11:03-0400 Body Temperature 97.7 [degF] Gabino [facility] 02-11-2019 11:03-0400 Body weight 70.3 kg [facility] 02-11-2019 11:03-0400 Height 165.1 cm Santana [facility] Encounters Encounter Date Encounter Type Care Provider Facility Start: 09-05-2024 End: 09-05-2024 ambulatory JAXSON CHRISTIAN Not Available Start: 08-22-2024 End: 08-22-2024 Bamboo flowsheet Corrine MOSELEY Work Phone: [facility] Start: 08-22-2024 End: 08-22-2024 Bamboo flowsheet Corrine MOSELEY Work Phone: [facility] Start: 08-22-2024 End: 08-22-2024 Patient encounter procedure Corrine MOSELEY Work Phone: [facility] Work Phone: Start: 08-22-2024 End: 08-22-2024 Periodic preventive med est patient 18-39 yrs Corrine M Ambrosio PA Work Phone: [facility] Comment on above: Annual wellness visi t (Primary Dx) Start: 08-22-2024 End: 08-22-2024 ambulatory CRORINE AMBROSIO Not Available Start: 08-18-2024 End: 08-18-2024 Orders Only Corrine Ambrosio PA Work Phone: [facility] Comment on above: Paronychia of toe, u nspecified laterality (Primary Dx) Start: 08-15-2024 End: 08-22-2024 Clinisync Result Encounter Generic External Data Provider [facility] External Department Unsolicited Start: 08-15-2024 End: 08-22-2024 Clinisync Result Encounter Generic External Data Provider [facility] External Department Unsolicited Start: 08-15-2024 End: 08-15-2024 Patient encounter procedure Jaxson Christian DO Work Phone: [facility] Start: 08-15-2024 End: 08-15-2024 Periodic preventive med est patient 18-39 yrs Jaxson Christian DO Work Phone: [facility] Comment on above: Well woman exam with routine gynecological exam; Menorrhagia with regular cycle; History of endometrial ablation Start: 08-15-2024 End: 08-15-2024 ambulatory JAXSON CHRISTIAN Not Available Start: 08-14-2024 End: 08-14-2024 Departed Referred Gabino Prieto DO Work Phone: [facility] [address] Work Phone: Start: 08-14-2024 End: 08-14-2024 ambulatory Gabino Prieto DO Work Phone: [facility] Work Phone: Start: 05-22-2024 End: 05-22-2024 ambulatory CORRINE AMBROSIO Not Available Start: 05-22-2024 End: 05-22-2024 Office outpatient visit 15 minutes Corrine Ambrosio PA Work Phone: [facility] [address] Comment on above: Paronychia of great toe of right foot (Primary Dx); Toenail fungus Start: 05-22-2024 End: 05-22-2024 Bamboo flowsheet Corrine Ambrosio PA Work Phone: [facility] Start: 05-22-2024 End: 05-22-2024 Bamboo flowsheet Corrine Ambrosio PA Work Phone: [facility] Start: 02-02-2024 End: 02-02-[address] [facility] Work Phone: Start: 02-02-2024 End: 02-02-2024 Patient encounter procedure [facility] [place] Work Phone: Start: 01-12-2024 End: 01-12-2024 ambulatory TUNG Whitehead WORKMAN Not Available Start: 01-12-2024 End: 01-12-2024 Office outpatient visit 15 minutes Summer M Workman PA Work Phone: [facility] Comment on above: Viral syndrome (Prim abigail Dx) Start: 06-22-2022 End: 06-23-[address] JAXSON GONZALES Facility:[facility]1 Start: 10-09-2021 End: 10-09-[address] JAXSON GONZALES Facility:[facility] Start: 10-07-2021 Encounter for other preprocedural examination DR JAXSON [facility]ON[facility] Start: 10-06-[address] JAXSON GONZALES Facility :[facility]1 Start: 10-01-2021 End: 10-02-[address] JAXSON GONZALES Facility:[facility]1 Start: 10-01-2021 End: 10-02-2021 Encounter for other preprocedural examination DR JAXSON GONZALES Facility:[facility]1 Start: 08-30-2021 End: 08-31-2021 ambulatory MELISSA JONES Facility:[facility]1 Start: 08-25-2021 End: 08-25-[address] JAXSON GONZALES Facility:[facility]1 Start: 08-24-2021 End: 08-24-[address] SOFIA SCHWARTZ Facility:[facility]1 Start: 02-11-2019 End: 02-11-2019 Emergency department patient visit Gabino Prieto -Emergency Room Start: 04-06-2018 End: 04-06-2018 Patient encounter procedure Gabino Prieto -Ultrasound Cntr for Breast Car Procedures Date Procedure Procedure Detail Performing Clinician Start: 08-15-2024 Urine test visual color cmprsn meths Jaxson Christian DO Work Phone: Start: 08-15-2024 IGP,APTIMA HPV,AGE GDLN Jaxson Cruzzio DO Work Phone: Start: 02-02-2024 Quick Strep (POC) Start: 02-11-2019 CT abdomen pelvis wo con Gabino Prieto Plan of Treatment Date Care Activity Detail Author Start: 03-12-2025 End: 03-12-2025 Patient encounter procedure 03/12/2025 9:30 AM EDT Procedure Visit [facility] [address] [place] [address] Jaxson Gonzales, DO [address] [place], [place] [id number] [facility] Start: 08-22-2024 End: 08-22-2024 Patient encounter procedure 08/22/2024 11:20 AM EDT Office Visit [facility] [address] [place] [phone] Corrine Ambrosio PA [address] [place] [address] Arrived [facility] Comment on above: Arrived Start: 08-03-2024 End: 08-03-2024 Patient encounter procedure 08/03/2024 8:30 AM EDT Office Visit [facility] [address] [place] [id number] Jaxson Gonzales, DO [address] [place], [place] [id number] [facility] Start: 05-30-2024 Screening for malign ant neoplasm of cervix [facility] Healthcare Start: 01-23-2024 Influenza vaccination Influenza Vacc ine (#1) [facility] Start: 2010 Screening for malign ant neoplasm of cervix Pap Smear [facility] Cytology Cervical or vaginal smear or scraping study Pap Smear Pathology and Cytology Routine Well woman exam with routine gynecological exam Ordered: 08/15/2024 [facility] Work Phone: Comment on above: Ordered: 08/15/2024 Human papilloma viru s DNA [Presence] in Unspecified specimen by Probe with amplification HPV DNA probe, amplified Microbiology Routine Well woman exam with routine gynecological exam Ordered: 08/15/2024 [facility] Comment on above: Ordered: 08/15/2024 Patient Education Kidney Stones (ED) How to Strain Your Urine (ED) [facility] Patient referral [facility] Immunizations Immunization Date Immunization Notes Care Provider Nancy shaffer 08-14-2024 influenza, seasonal, injectable, preservative free Corrine MOSELEY Work Phone: [facility] 11-19-2014 tetanus toxoid, redu sissy diphtheria toxoid, and acellular pertussis vaccine, adsorbed Summer Sandrahepzibah PA Work Phone: [facility] 10-05-2006 meningococcal polysaccharide (groups A, C, Y and W-135) diphtheria toxoid conjugate vaccine (MCV4P) Corrine MOSELEY Work Phone: [facility] 04-24-1992 diphtheria, tetanus toxoids and pertussis vaccine Corrine MOSELEY Work Phone: [facility] 04-24-1992 measles, mumps and r ubella virus vaccine Corrine MOSELEY Work Phone: [facility] 04-24-1992 poliovirus vaccine, inactivated Corrine MOSELEY Work Phone: [facility] 03-31-1991 haemophilus influenz ae type b vaccine, PRP-T conjugate Corrine MOSELEY Work Phone: [facility] 03-31-1991 measles, mumps and r ubella virus vaccine Corrine MOSELEY Work Phone: [facility] 12-02-1990 diphtheria, tetanus toxoids and pertussis vaccine Corrine MOSELEY Work Phone: [facility] 12-02-1990 haemophilus influenz ae type b vaccine, PRP-T conjugate Corrine MOSELEY Work Phone: [facility] 04-22-1990 diphtheria, tetanus toxoids and pertussis vaccine Corrine Ambrosio [place] Work Phone: [facility] 04-22-1990 poliovirus vaccine, inactivated Corrine Ambrosio [place] Work Phone: [facility] 01-31-1990 diphtheria, tetanus toxoids and pertussis vaccine Corrine Ambrosio [place] Work Phone: [facility] 01-31-1990 poliovirus vaccine, inactivated Corrine Ambrosio [place] Work Phone: [facility] Payers Date Payer Category Payer Self-pay [id number] 2022 Medicaid [id number] 2022 Medicaid [id number] 1989 Unknown [id number] 2.16.84 [id number] 1989 Unknown [id number] 2.16.84 [id number] 1989 Unknown [id number] 2.16.84 0.1.763545.3.579.2.593 1989 Unknown [id number] 2.16.84 0.1.126927.3.579.2.593 1989 Unknown [id number] 2.16.84 0.1.475501.3.579.2.593 1989 Unknown [id number] 2.16.84 0.1.876140.3.579.2.593 1989 Unknown [id number] 2.16.84 0.1.371048.3.579.2.593 1989 Unknown [id number] 2.16.84 0.1.943695.3.579.2.593 1989 Unknown [id number] 2.16.84 0.1.972668.3.579.2.1259 1989 Unknown [id number] 2.16.84 0.1.255683.3.579.2.9 1989 Unknown [id number] 2.16.84 0.1.556252.3.579.2.1258 1989 Unknown [id number] 2.16.84 0.1.752515.3.579.2.1258 1989 Unknown [id number] 2.16.84 0.1.887072.3.579.2.1259 1959 Unknown [id number] 1959 Unknown [id number] Unknown Self Pay [id number] Unknown [place] BC/BS [id number] Unknown Insurance No Card [id number] Unknown [id number] 2.16.8 [id number] Unknown [id number] 2.16.8 [id number] Social History Date Type Detail Facility Start: 02-11-2019 Tobacco smoking stat [facility] Never smoked tobacco (finding) [facility] Start: 1990 Sex Assigned At Female F [facility] Start: 12-23-2022 End: 02-02-2024 Tobacco smoking status ILIS Ex-smoker (finding) [facility] History of tobacco use Current smoker [...] Alcohol Comment Caffeine: > 4 cups/day soda [facility] Start: 1989 Sex assigned at Not on file [facility] Start: 08-15-2024 Sex Female (finding) [facility] Goals Date Patient Goal Desired [...] were not included. Subjective Patient ID: Farzaneh Armstrong is a 33 y.o. female who presents for Annual Exam (Pt states she is here for a yearly wellness. Pt states that she will starting at [facility] and she will need the wellness for her health insurance. ). Wellness Examination Pt presents to the office for an annual wellness visit without any current complaints. She recently had labs completed at [facility] [employer] and is not currently taking any medications. [...] history were discussed. documented in this encounter [facility] 08-18-2024 History of Presen t illness Narrative Referral sent. documented in this encounter [facility] 08-15-2024 History of Presen t illness Narrative Reason for Appointment: Patient ID: Farzaneh Armstrong is a 33 y.o. female who [...] without aura (CMS/HCC) Mild dysplasia of cervix 2009 Obesity (BMI 30-39.9) Pelvic pain 2007 Pre-op exam 2009 2008 Umbilical hernia Varicella zoster Well woman exam [...] 2014 LGSIL on Pap smear of cervix Menorrhagia Migraine without aura (CMS/HCC) without mention of intractable migraine without mention of status migrainosus Mild dysplasia of cervix 2009 Obesity (BMI 30-39.9) Pelvic pain 2007 Pre-op exam 2009 2009 Umbilical hernia age 3 Varicella zoster [...] PELVIC LAPAROSCOPY 2007 pelvic pain PELVIC LAPAROSCOPY 2017 PA COLPOSCOPY,ENTIRE VAGINA,W/BIOPSY(S) 2009 abnormal pap smear TUBAL LIGATION 11/2019 UMBILICAL HERNIA REPAIR age 3 VAGINAL DELIVERY 2009 21 hr labor VAGINAL DELIVERY 2009 VAGINAL DELIVERY 2015 REVIEW OF SYSTEMS Review [...] nursing note reviewed. Exam conducted with a painter railroad car present. Vitals: Estimated body mass index is 34.61 kg/m as calculated from the following: Height as of 05/22/24: 5' 5 . Weight as of this [...] by Karla Payne LPN on behalf of: Jaxson Gonzales DO documented in this encounter [facility] 05-22-2024 History of Presen t illness Narrative Images from the original note were not included. Subjective Patient ID: Farzaneh Armstrong is a 33 y.o. female who [...] Pt verbalized understanding. documented in this encounter [facility] 01-12-2024 History of Presen t illness Narrative HPI: Historian of HPI: patient Farzaneh Armstrong is a 33 y.o. female who [...] in house negative. documented in this encounter [facility] 10-09-2021 Note OPERATIVE NOTE OPERATION DATE: 10/09/2021 PROCEDURE: Juhi endometrial ablation with hysteroscopy. PREOPERATIVE DIAGNOSIS: Menorrhagia. POSTOPERATIVE DIAGNOSIS: Menorrhagia. ANESTHESIA: General. SURGEON: Jaxson Gonzales M.D. HOSE SPRAYER: None. FINDINGS: Normal appearing endometrium. Both ostia [...] Patient taken to recovery in stable condition. [facility] Signed and Approved by: DR JAXSON GONZALES . 10/13/2021 07:35:00 [facility] Evaluation note Diagnosis Onset Date COVID acute Contact with and (suspected) exposure to covid-19 noneactive Sore throat noneactive [facility] Work Phone: Evaluation note* Diagnosis Viral syndrome- Primary Unspecified viral infection, in conditions classified elsewhere and of unspecified site documented in this encounter [facility] HealthcareEvaluation note* Diagnosis Paronychia of great toe of right foot- Primary Toenail fungus documented in this encounter [facility] noteNo [facility] Work Phone: Evaluation note* Diagnosis Paronychia of toe, unspecified laterality- Primary documented in this encounter [facility] HealthcareEvaluation note* Diagnosis Well woman exam with routine gynecological exam Routine gynecological examination Menorrhagia with regular cycle History of endometrial ablation documented in this encounter [facility] HealthcareEvaluation note* Diagnosis Annual wellness visit- Primary documented in this encounter [facility] Advance Directives No Advanced Directives Records [...] pital DATE CREATED AUTHOR AUTHOR'S ORGANIZ ATION 09/06/2024 [facility] EPIC DATE CREATED AUTHOR AUTHOR'S ORGANIZ ATION 09/08/2024 [facility] Care Teams (unrecognized sec tion and content) Team Status: Active Member Role Status Dates Gabino Prieto DO Primary Care Provider Active Team Status: Inactive Member Role Status Dates Gabino Prieto DO Primary Care Provider Active Start: February 02, 2024 End: February 02, 2024 Hilaria LOPEZ , MAGAZINE SUPERVISOR Attending Provider Active Start: February 02, 2024 End: February 02, 2024 Endoscopy Specialty Technician Relationship Specialty Start Date End Date Warren Prieto DO [address] [place] [address] PCP - General Family Medicine 09/29/22 Endoscopy Specialty Technician Relationship Specialty Start Date End Date Warren Prieto DO [address] [place] [address] PCP - General Family Medicine 09/29/22 Endoscopy Specialty Technician Relationship Specialty Start Date End Date Warren Prieto DO [address] [place] [address] PCP - General Family Medicine 09/29/22 Team Status: Inactive Member Role Status Dates Gabino Ramachandranftan , DO Primary Care Provider Active Start: August 14, 2024 End: August 14, 2024 Wes John Jr, DO Attending Provider Active S tart: August 14, 2024 End: August 14, 2024 Endoscopy Specialty Technician Relationship Specialty Start Date End Date Warren Prieto DO [address] [place] [address] PCP - General Family Medicine 09/29/22 Endoscopy Specialty Technician Relationship Specialty Start Date End Date Warren Prieto DO [address] [place] [address] PCP - General Family Medicine 09/29/22 Endoscopy Specialty Technician Relationship Specialty Start Date End Date Warren Prieto DO [address] [place] [address] PCP - General Family Medicine 09/29/22 Endoscopy Specialty Technician Relationship Specialty Start Date End Date Warren Prieto DO [address] [place] [address] PCP - General Family Medicine 09/29/22 Endoscopy Specialty Technician Relationship Specialty Start Date End Date Warren Prieto DO [address] [place] [address] PCP - General Family Medicine 09/29/22 Goals [...] Pt states that she will starting at [employer] [facility] [employer] and she will need the wellness for [...] BE BASED ON THE PRIMARY CLINICAL RECORDS. [employer] [facility]. provides no warranty or guarantee of the accuracy or completeness of information in this document.
[2024-09-09 22:41] VITALS: O2SAT 99
--- NOTE | 2024-09-09 22:42 | ED.GENADUL1 ---
HPI HPI - General Adult General Chief complaint: Abdominal Pain Stated complaint: SORE THROAT, BACK PAIN Time Seen by Provider: 09/09/24 22:36 Source: patient Mode of arrival: walk-in Limitations: no limitations History of Present Illness HPI narrative: presents complaining of runny nose and sore throat for a couple of days. Hurts to swallow but can swallow. Tonight developed right lower quad/flank pain. No fever or nausea or dysuria. Describes past history of pyelonephritis past cholecystectomy Related Data Previous Rx's ?Medication ?Instructions ?Recorded benzonatate 100 mg capsule 100 mg PO TID PRN cough #20 caps 07/04/24 loratadine 5 mg-pseudoephedrine ER 1 tab PO Q12H PRN nasal congestion 07/04/24 120 mg tablet,extended #20 tabs release,12hr (Claritin-D 12 Hour) Allergies Allergy/AdvReac Type Severity Reaction Status Date / Time levofloxacin (From [employer]) Allergy Mild Rash Verified 09/09/24 22:37 Opioid HPI Opioid Management Most Recent Opioid Data: Last Pain Scale 6 06/19/23 20:17 06/19/23 Review of Systems ROS Status of ROS 10 or more systems reviewed and unremarkable except as noted in history and below PFSH PFSH Social History Smoking status: Former smoker Little interest or pleasure in doing things: not at all Feeling down, depressed, or hopeless: not at all Exam Constitutional Vital Signs, click to edit/add: Last Vital Signs Temp 97.9 F 09/09/24 22:33 Pulse 79 09/09/24 22:33 Resp 16 09/09/24 22:33 BP 120/85 09/09/24 22:33 Pulse Ox 99 09/09/24 22:41 O2 Del Method Room Air 09/09/24 22:41 Common normals: no apparent distress, average body habitus, oriented x3, no limitations, healthy appearing, alert and well nourished [facility] Common normals: normocephalic and head/scalp atraumatic Other: oral pharynx mildly erythematous . no exudate. no lymph nodes Eye Common normals: PERRL and EOMs intact bilaterally Respiratory Common normals: normal respiratory effort, no retractions, no use of accessory muscles and clear to auscultation bilaterally Cardio Common normals: regular rate, regular rhythm, S1 normal heart sound and S2 normal heart sound GI Common normals: Normal to inspection, nondistended, normoactive bowel sounds present and soft to palpation Other: mild right lower quad and right flank tenderness Extremity Common normals: normal to inspection and full ROM Neuro Common normals: oriented x3, CN's II-XII intact bilaterally, moves all extremities and no focal motor deficits Psych Appearance: grossly normal Course Vital Signs Vital signs: Vital Signs Temperature 97.9 F 09/09/24 22:33 Pulse Rate 79 09/09/24 22:33 Respiratory Rate 16 09/09/24 22:33 Blood Pressure 120/85 09/09/24 22:33 Pulse Oximetry 99 09/09/24 22:33 Oxygen Delivery Method Room Air 09/09/24 22:33 Temperature 97.9 F 09/09/24 22:33 Pulse Rate 79 09/09/24 22:33 Respiratory Rate 16 09/09/24 22:33 Blood Pressure 120/85 09/09/24 22:33 Pulse Oximetry 99 09/09/24 22:41 Oxygen Delivery Method Room Air 09/09/24 22:41 Medical Decision Making MDM Narrative Medical decision making narrative: patient presents with multiple complaints. continued conjunctivitis . treated for a couple of days but not improved. Has mild injection of her eyes. no chemosis and mild swelling right upper eyelid. Will plan to continue erythromycin eye ointment pharyngitis. mild erythema of pharynx. strep screen neg. abdominal right sided pain. CT with findings of enteritis and adenitis patient informed of viral cause of her GI symptoms. Advised to drink plenty of fluids and follow up with her doctor Lab Data Labs: Lab Results 09/09/24 09/09/24 09/09/24 Range/Units 22:35 22:42 22:55 WBC 6.0 (4.0-11.0) 10^3/uL RBC 4.62 (4.20-5.40) 10^6/uL Hgb 13.8 (12.0-16.0) g/dL Hct 41.4 (36.0-48.0) % MCV 89.6 (81.0-99.0) fL MCH 29.9 (26.7-34.0) pg MCHC 33.3 (29.9-35.2) g/dL RDW 12.3 (11.0-15.0) % Plt Count 183 (150-450) 10^3/uL MPV 10.9 (9.5-13.5) fL Neut % (Auto) 75.0 (43.0-75.0) % Lymph % (Auto) 17.4 L (20.5-60.0) % Dane % (Auto) 4.7 (1.7-12.0) % Eos % (Auto) 2.2 (0.9-7.0) % Baso % (Auto) 0.5 (0.2-2.0) % Neut # (Auto) 4.5 (1.4-6.5) 10^3/uL Lymph # (Auto) 1.1 L (1.2-3.8) 10^3/uL Dane # (Auto) 0.3 (0.3-0.8) 10^3/uL Eos # (Auto) 0.1 (0.0-0.7) 10^3/uL Baso # (Auto) 0.0 (0.0-0.1) 10^3/uL Abs Immat Gran (auto) 0.01 (0.00-0.03) 10^3/uL Imm/Tot Granulo (auto) 0.2 (0.0-0.5) % Sodium 139 (136-145) mmol/L Potassium 3.5 (3.5-5.1) mmol/L Chloride 102 (98-107) mmol/L Carbon Dioxide 28.5 (21.0-32.0) mmol/L Anion Gap 12.0 BUN 12.0 (7.0-18.0) mg/dL Creatinine 1.00 (0.55-1.02) mg/dL Est GFR ( Amer) >60 (>=60 mL/min/1.73m^2) Est GFR (Non-Af Amer) >60 (>=60 mL/min/1.73m^2) BUN/Creatinine Ratio 12.0 Glucose 68 L (74-106) mg/dL Calcium 8.7 (8.5-10.1) mg/dL Urine Color Yellow (YELLOW) Urine Clarity Clear (CLEAR) Urine pH 6.0 (5.0-9.0) Ur Specific [place] >=1.030 A (1.005-1.025) Urine Protein Negative (NEG/TRACE) mg/dL Urine Glucose (UA) Negative (NEGATIVE) mg/dL Urine Ketones Negative (NEGATIVE) mg/dL Urine Occult Blood Negative (NEGATIVE) Urine Nitrite Negative (NEGATIVE) Urine Bilirubin Negative (NEGATIVE) Urine Urobilinogen 0.2 (0.2-1.0) EU/dL Ur Leukocyte Esterase Negative (NEGATIVE) Urine RBC None seen (0-2) #/HPF Urine WBC 0-2 A (NONE SEEN) #/HPF Ur Squamous Epith Cells Moderate A (NONE/RARE) #/LPF Urine Crystals None seen (None Seen) #/HPF Urine Bacteria Trace A (NONE SEEN) #/HPF Urine Casts None seen (NONE SEEN) #/LPF Urine Mucus None seen (NONE SEEN) Ur Culture Indicated? No Urine HCG, Qual Negative (NEGATIVE) Streptococcus Screen Negative Discharge Plan Discharge Chief Complaint: Abdominal Pain Clinical Impression: Conjunctivitis, Enteritis, Pharyngitis Patient Disposition: Home, Self-Care Prescriptions / Home Meds: No Action benzonatate 100 mg capsule 100 mg PO TID PRN (Reason: cough) Qty: 20 0RF Claritin-D 12 Hour 5-120 mg tablet extended release 12 hr 1 tab PO Q12H PRN (Reason: nasal congestion) Qty: 20 0RF Print Language: Turkmen Instructions: Colitis (ED), Conjunctivitis (ED), Enteritis (ED) Additional Instructions: follow up with your doctor next week for recheck Referrals: Stoney DOLAN [Primary Care Provider] - 1 week
[2024-09-09 23:00] LABS: Bilirubin Urine NEGATIVE (NEGATIVE); Blood Urine NEGATIVE (NEGATIVE); Clarity Urine CLEAR (CLEAR); Color Urine YELLOW (YELLOW); Glucose Urine UA NEGATIVE (NEGATIVE); Ketones Urine NEGATIVE (NEGATIVE); Leukocyte Esterase Urine NEGATIVE (NEGATIVE); Nitrite Urine NEGATIVE (NEGATIVE); Protein Urine NEGATIVE (NEG/TRACE); Specific Gravity Urine >=1.030 (1.005-1.025); Urobilinogen Urine 0.2 EU/dL (0.2-1.0)
[2024-09-09 23:04] LABS: HCG Qualitative Urine* NEGATIVE (NEGATIVE); Internal Control Within Normal Limits
[2024-09-09 23:04] LABS: Internal Control Within Normal Limits; Strep A Antigen Screen Negative
[2024-09-09 23:05] LABS: Basophils Percent Auto 0.5 % (0.2-2.0); Eosinophils Absolute Auto 0.1 10^3/uL (0.0-0.7); Eosinophils Percent Auto 2.2 % (0.9-7.0); Hematocrit 41.4 % (36.0-48.0); Hemoglobin 13.8 g/dL (12.0-16.0); Immature Granulocytes Abs Auto 0.01 10^3/uL (0.00-0.03); Immature Granulocytes Pct Auto 0.2 % (0.0-0.5); Lymphocytes Absolute Auto 1.1 10^3/uL (1.2-3.8); Lymphocytes Percent Auto 17.4 % (20.5-60.0); Mean Corpuscular HGB Conc 33.3 g/dL (29.9-35.2); Mean Corpuscular Hemoglobin 29.9 pg (26.7-34.0); Mean Corpuscular Volume 89.6 fL (81.0-99.0); Mean Platelet Volume 10.9 fL (9.5-13.5); Monocytes Absolute Auto 0.3 10^3/uL (0.3-0.8); Monocytes Percent Auto 4.7 % (1.7-12.0); Neutrophils Absolute Auto 4.5 10^3/uL (1.4-6.5); Platelet Count 183 10^3/uL (150-450); Red Blood Count 4.62 10^6/uL (4.20-5.40); Red Cell Distribution Width 12.3 % (11.0-15.0)
[2024-09-09 23:09] LABS: Bacteria Urine TRACE #/HPF (NONE SEEN); Cast Seen? NONE SEEN #/LPF (NONE SEEN); Crystals Seen? None Seen #/HPF (None Seen); Mucus Urine NONE SEEN (NONE SEEN); RBC Urine NONE SEEN #/HPF (0-2); Squamous Epithelial Cell Urine MODERATE #/LPF (NONE/RARE); Urine Culture Indicated NO; WBC Urine 0-2 #/HPF (NONE SEEN)
[2024-09-09 23:14] LABS: Calcium 8.7 mg/dL (8.5-10.1); Carbon Dioxide 28.5 mmol/L (21.0-32.0); Chloride 102 mmol/L (98-107); Estimated GFR (African America >60 (>=60 mL/min/1.73m^2); Estimated GFR (Non-African Ame >60 (>=60 mL/min/1.73m^2); Glucose 68 mg/dL (74-106); Potassium 3.5 mmol/L (3.5-5.1); Sodium 139 mmol/L (136-145)
[2024-09-10] MEDS: ACETAMINOPHEN 500 MG TABLET 1000 MG PO (00:13)
== END 2024-09-10 01:34 | disposition home or self-care (01) ==
PROVIDERS: Emergency Provider Internal Medicine; PCP Family Medicine
DX: K52.9 Noninfective gastroenteritis and colitis, unspecified (principal); H10.9 Unspecified conjunctivitis; J02.9 Acute pharyngitis, unspecified; N83.202 Unspecified ovarian cyst, left side; Z90.49 Acquired absence of other specified parts of digestive tract; Z87.891 Personal history of nicotine dependence
CPT/HCPCS: 36415; 74176; 80048; 81001; 84703; 85025; 87070; 87880; 99284

== ENCOUNTER 2025-03-12 09:58 | Outpatient (REF) | payer MEDICAID, SELFPAY ==
--- OUTSIDE RECORDS SUMMARY | 2025-03-12 09:30 | XMS_ITS | Encounter Summary ---
Author Organization [facility] Address [address] [place] [address] Care Team Providers Care Pet Crematory Worker Name Role Phone Warren Prieto DO Primary Care Provider [phone] Reason for Visit * ReasonCommentsPre-op VisitEndometrial Biopsy Encounter Details DateTypeDepartmentCare Team (Latest Contact Info)Grgxgwfvzns05/20/2025 9:30 AM EDTProcedure Visit [facility] [address] [place] [phone] Jaxson Gonzales DO [address] [place] [id number] Pre-op examination; Menorrhagia with regular cycle; Pelvic pain in female; Dysmenorrhea; Dyspareunia, female; HGSIL (high grade squamous intraepithelial lesion) on Pap smear of cervix Social History Tobacco UseTypesPacks/DayYears UsedDateSmoking Tobacco: FormerCigarettes Smokeless Tobacco: NeverAlcohol UseStandard Drinks/WeekCommentsNever0 (1 standard drink = 0.6 oz pure alcohol)Caffeine: > 4 cups/day sodaPHQ-2AnswerDate RecordedPatient Health Questionnaire-2 [id number] Sex and Gender InformationValueDate RecordedSex Assigned at BirthNot on file Legal OuqYlpgcg46/15/2023 6:48 PM EDTGender IdentityNot on fileSexual OrientationNot on filedocumented as of this encounter Last Filed Vital Signs Vital SignReadingTime TakenCommentsBlood Npujpywy931/8010 9:34 AM EDT Pulse--Temperature--Respiratory Rate--Oxygen Saturation--Inhaled Oxygen Concentration--Evlktt79.3 kg (210 lb)03/12/2025 9:34 AM EDTHeight--Body Mass Index34.9504 10:23 AM EDTdocumented in this encounter Progress Notes * Keily Lew - 03/12/2025 9:30 AM EDT Reason for Appointment: Patient ID: Farzaneh Marvin is a 34 y.o. female who presents for Pre-op Visit and Endometrial Biopsy Patient presents today for Pre Op/Endometrial Biopsy appointment. Patient is scheduled to undergo Da Saadia assisted Laparoscopic Hysterectomy, possible exploratory laparotomy, possible BSO, possible cystoscopy on 04/11/[address] Gonzales at [facility]. 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 Liver lesion, right lobe 02/08/2023 Low grade squamous intraepithelial lesion (LGSIL) on cervicovaginal cytologic smear 02/08/2023 Menorrhagia 02/08/2023 Obesity 02/08/2023 Pain in pelvis 02/08/2023 Sinusitis 02/08/2023 Thrombocytopenic disorder 02/08/2023 Distal radius fracture 08/31/2013 Resolved Ambulatory Problems Diagnosis Date Noted No Resolved Ambulatory Problems Past Medical History: Diagnosis Date Abnormal Pap smear of cervix ASCUS with positive high risk HPV cervical 2007 Cervical high risk human papillomavirus (HPV) DNA test positive Cholelithiasis Condyloma Decreased platelet count Dysuria Encounter for cervical smear to confirm findings of recent normal smear following initial abnormal smear Gross hematuria H/O recurrent urinary tract infection History of umbilical hernia HPV in female Kidney stones 2014 LGSIL on Pap smear of cervix Migraine without aura Mild dysplasia of cervix 2009 Obesity (BMI 30-39.9) Pelvic pain 2007 Pre-op exam ([facility]) 2010 ([facility]) 2009 Umbilical hernia Varicella zoster Well woman exam HISTORY PAST MEDICAL HISTORY SOCIAL HISTORY Past Medical History: Diagnosis Date Abnormal Pap smear of cervix ASCUS with positive high risk HPV cervical 2008 Cervical high risk human papillomavirus (HPV) DNA test positive Cholelithiasis Condyloma Decreased platelet count Dysuria Encounter for cervical smear to confirm findings of recent normal smear following initial abnormal smear Gross hematuria H/O recurrent urinary tract infection History of umbilical hernia HPV in female Kidney stones 2015 LGSIL on Pap smear of cervix Menorrhagia Migraine without aura without mention of intractable migraine without mention of status migrainosus Mild dysplasia of cervix 2009 Obesity (BMI 30-39.9) Pelvic pain 2007 Pre-op exam ([facility]) 2010 ([facility]) 2009 Umbilical hernia age 3 Varicella zoster [...] 2008 Cholelithiasis COLPOSCOPY 2009 ASCUS Pos HPV ENDOMETRIAL ABLATION PAP SMEAR 07/31/2015 Neg PAP SMEAR Abnormal- 02/03/15-LGSIL, 02/2015- ELISABET I; Colpo 2009- mild dysplasia PELVIC LAPAROSCOPY 2007 pelvic pain PELVIC LAPAROSCOPY 2018 [place] COLPOSCOPY,ENTIRE VAGINA,W/BIOPSY(S) 2009 abnormal pap smear TUBAL LIGATION 11/2019 UMBILICAL HERNIA REPAIR age 3 VAGINAL DELIVERY 2009 21 hr labor VAGINAL DELIVERY 2010 VAGINAL DELIVERY 2015 REVIEW OF SYSTEMS Review of Systems: Review of Systems Constitutional: Negative. HENT: Negative. Eyes: Negative. Respiratory: Negative. Cardiovascular: Negative. Gastrointestinal: Negative. Genitourinary: Positive for dyspareunia, menstrual problem and pelvic pain. Musculoskeletal: Negative. Skin: Negative. Neurological: Negative. All other systems reviewed and are negative. Hematological: Negative. Endocrine: Negative. Allergic/Immunologic: Negative. OBJECTIVE Objective: Physical Exam Constitutional: Appearance: Normal appearance. She is well-developed. Genitourinary: Vulva normal. Cardiovascular: Rate and Rhythm: Normal rate and [...] nursing note reviewed. Exam conducted with a wallpaper inspector present. Vitals: Estimated body mass index is 34.45 kg/m?? as calculated from the following: Height as of 09/11/24: 5' 5 . Weight as of 09/11/24: 207 lb. BP: No LMP recorded. ASSESSMENT & PLAN ICD-10-CM 1. Pre-op examination Z01.818 2. Menorrhagia with regular cycle N92.0 3. Pelvic pain in female R10.20 4. Dysmenorrhea N94.6 5. Dyspareunia, female N94.10 6. HGSIL (high grade squamous intraepithelial lesion) on Pap smear of cervix R87.613 EMBX: Patient was placed in dorsal lithotomy position with feet in stirrups. A sterile speculum was placed into the vagina and the cervix was visualized. The cervix was grasped with a single tooth tenaculum. The endometrial pipette was placed through the cervix into the uterus, endometrial curettage was performed and sampling was obtained, endometrial curettings were placed in formalin, and single tooth tenaculum was removed. Excellent hemostasis was assured. All instruments were removed from vagina. Pre Op: Patient is doing well but has complaints of HGSIL with HPV+ on recent Colposcopy performed on 09/05/2024, menorrhagia, pelvic pain, dyspareunia, and dysmenorrhea. I have discussed conservative management vs. surgical management with the patient in detail and patient desires surgical management at this time. Patient will undergo Da Saadia assisted Laparoscopic Hysterectomy, possible exploratory laparotomy, possible BSO, possible cystoscopy on 04/11/2025. Surgical consents were signed, mmc was reviewed, and patient is to proceed to [facility] OR. Follow Up: Patient is to follow up at 1 & 6 weeks post operative to assess proper healing and recovery from procedure. Documented by Carmelina Heard LPN on behalf of: Jaxson Gonzales DO documented in this encounter Plan of Treatment NameTypePriorityAssociated DiagnosesOrder ScheduleTissue examPathology and CytologyRoutine Pre-op examination Menorrhagia with regular cycle Pelvic pain in female Dysmenorrhea Dyspareunia, female HGSIL (high grade squamous intraepithelial lesion) on Pap smear of cervix Ordered: 03/12/2025documented as of this encounter Procedures Procedure NamePriorityDate/TimeAssociated DiagnosisCommentsPOCT , URINE Hppvbfa0903/12/2025 9:44 AM EDT Pre-op examination Menorrhagia with regular cycle Pelvic pain in female Dysmenorrhea Dyspareunia, female HGSIL (high grade squamous intraepithelial lesion) on Pap smear of cervix documented in this encounter Results * POCT , urine manually resulted (03/12/2025 9:44 AM EDT)ComponentValue Ref RangeTest MethodAnalysis TimePerformed AtPathologist SignaturePreg Test, UrNegativeNegativeSpecimen (Source)Anatomical Location / LateralityCollection Method / VolumeCollection TimeReceived AtygHnjet79/20/2025 9:44 AM EDT Narrative Authorizing ProviderResult TypeResult StatusCorey Christian DOPOINT OF CARE TEST ENTER/EDIT ORDERABLESFinal Result documented in this encounter Visit Diagnoses Diagnosis Pre-op examination Menorrhagia with regular cycle Pelvic pain in female Unspecified symptom associated with female genital organs Dysmenorrhea Dyspareunia, female HGSIL (high grade squamous intraepithelial lesion) on Pap smear of cervix documented in this encounter Care Teams Team MemberRelationshipSpecialtyStart DateEnd Date Warren Prieto DO [address] [place] [address] PCP - GeneralFamily Medicine09/29/22documented as of this encounter
--- OUTSIDE RECORDS SUMMARY | 2025-03-13 10:40 | XMS_ITS | Encounter Summary ---
Author Organization [facility] Address [address] [place] [address] Care Team Providers Care Insulator Tester Name Role Phone Warren Prieto Primary Care Provider [phone] Reason for Visit * ReasonCommentsAbnormal Pap Smear Encounter Details DateTypeDepartmentCare Team (Latest Contact Info)Togjxbwbfyl28/21/2025 10:40 AM EDTProcedure Visit [facility] [address] [place] [phone] Jaxson Gonzales DO [address] [place] [id number] LGSIL of cervix of undetermined significance; Menorrhagia with regular cycle; Dyspareunia in female; Pelvic pain; History of endometrial ablation Social History Tobacco UseTypesPacks/DayYears UsedDateSmoking Tobacco: FormerCigarettes Smokeless Tobacco: NeverAlcohol UseStandard Drinks/WeekCommentsNever0 (1 standard drink = 0.6 oz pure alcohol)Caffeine: > 4 cups/day sodaPHQ-2AnswerDate RecordedPatient Health Questionnaire-2 Evxut372CommentsUnknown Sex and Gender InformationValueDate RecordedSex Assigned at BirthNot on file Legal IgjOycycm58/15/2023 6:48 PM EDTGender IdentityNot on fileSexual OrientationNot on filedocumented as of this encounter Last Filed Vital Signs Vital SignReadingTime TakenCommentsBlood Rattcdlo350/8010 10:32 AM EDT Pulse--Temperature--Respiratory Rate--Oxygen Saturation--Inhaled Oxygen Concentration--Rqbqxc26.3 kg (210 lb)03/13/2025 10:32 AM EDTHeight--Body Mass Index34.95009/11/2024 10:23 AM EDTdocumented in this encounter Progress Notes * Karla Payne, DISEASE CASE MANAGER - 03/13/2025 10:40 AM EDT Reason for Appointment: Patient ID: Farzaneh Marvin is a 34 y.o. female who presents for Abnormal Pap Smear Patient presents today for Repeat Pap. MEDICATIONS No current outpatient medications ALLERGIES Allergies [...] (BMI 30-39.9) Pelvic pain 2007 Pre-op exam ([facility]) 2010 ([facility]) 2009 Umbilical hernia Varicella zoster Well [...] (BMI 30-39.9) Pelvic pain 2007 Pre-op exam ([facility]) 2010 ([facility]) 2009 Umbilical hernia age 3 Varicella [...] I; Colpo 2009- mild dysplasia PELVIC LAPAROSCOPY 2006 pelvic pain PELVIC LAPAROSCOPY 2018 [place] COLPOSCOPY,ENTIRE VAGINA,W/BIOPSY(S) 2009 abnormal pap smear TUBAL [...] nursing note reviewed. Exam conducted with a facilities clerk present. Vitals: Estimated body mass index is 34.95 kg/m?? as calculated from the following: Height as of 09/11/24: 5' 5 . Weight as of this encounter: 210 lb. BP: 120/80 Patient's last menstrual period was 03/08/2025. Assessment/Plan ICD-10-CM 1. LGSIL of cervix of undetermined significance R87.612 Pap Smear HPV DNA probe, amplified 2. Menorrhagia with regular cycle N92.0 3. Dyspareunia in female N94.10 4. Pelvic pain R10.20 5. History of endometrial ablation Z98.890 Repeat Pap: Patient presents today for a repeat pap. Previous pap results were reviewed and noted to be LGSIL. Question regarding previous results were discussed. Repeat Pap was obtained without difficulty. Follow Up: Patient is to return to the office in 6 months for an annual exam. Documented by Karla Payne LPN on behalf of: Jaxson Gonzales DO documented in this encounter Plan of Treatment NameTypePriorityAssociated DiagnosesOrder SchedulePap SmearPathology and CytologyRoutine LGSIL of cervix of undetermined significance Ordered: 03/13/2025HPV DNA probe, amplifiedMicrobiologyRoutine LGSIL of cervix of undetermined significance Ordered: 03/13/2025documented as of this encounter Visit Diagnoses Diagnosis LGSIL of cervix of undetermined significance Menorrhagia with regular cycle Dyspareunia in female Pelvic pain History of endometrial ablation documented in this encounter Care Teams Team MemberRelationshipSpecialtyStart DateEnd Date Warren Prieto DO [address] [place] [address] PCP - GeneralFamily Medicine09/29/22documented as of this encounter
--- OUTSIDE RECORDS SUMMARY | 2025-03-13 20:40 | XMS_ITS | Continuity of Care Document ---
Author Organization [facility] Address [address] [place] [address] Phone Care Team Providers Care Cruise Coordinator Name Role Phone Tania Dove APRN Attending Provider Gabino Prieto DO Primary Care Provider Adeel Nogueira DO Attending Provider Jaxson Gonzales DO Attending Provider Care Teams Visit Care Team Team Status: Inactive Member Role/Relationship Status Dates Tania Dove APRN Attending Provider Active Start: February 10, 2025 End: February 10, 2025G. Prerna Cadena Care ProviderActiveStart: February 10, 2025 End: February 10, 2025 Visit Care Team Team Status: Inactive Member Role/Relationship Status Dates Tania Dove APRN Attending Provider Active Start: February 10, 2025 End: February 10, 2025 Visit Care Team Team Status: Inactive Member Role/Relationship Status Dates Adeel QUINN DO [facility] Attending Provider Active Start: March 02, 2025 End: March 02, 2025 Visit Care Team Team Status: Inactive Member Role/Relationship Status Dates Jaxson Gonzales DO Attending Provider Active Start : March 12, 2025 End: March 12, 2025 Chief Complaint and Reason for Visit Chief Complaint Admit Date Dysuria February 10, 2025 12:24pm R30.0 February 10, 2025 12:35pm Z23 March 02, 2025 9 :00am Unknown March 12, 2025 1 2:31pm Reason for Visit Admit Date Acute UTI [...] Legal Sex Female (finding) Sex Assigned At [facility] 1990 Problems Active Problems Problem Diagnosis/Recorded Date Onset Date Status C omments COVID February 02, 2024 6:57pm Unknown Active Renal stoneSept2023 6:41pmUnknownActiveAcute UTISept2024 2:07pmUnknownActiveInactive/Resolved Problems Problem Diagnosis/Recorded Date Onset Date Status C omments Ureterolithiasis February 11, 2019 2:49pm Unknown Re solved Problem List clean-up per request of Phys. EHR Cmte Pharyngitis September 12, 2018 2:44pm Unknown Resolved Problem List clean-up per request of Phys. EHR Cmte Medications Medication Status Dose Units Route Directions Qty Days Refills S tart Date Stop Date End Date Reason(s) Instructions Adherence Nitrofurantoin Monohyd/M-Cryst (Macrobid) 100 mg capsule Active 100 MG PO Every 12 hours 10 5 0 February 14, 2025 12:00am must administer with a meal/foodUnknownHydrocodone-Acetaminophen (Highland) 5-325 mg WlzktqGkovdlwcighx6VMATNJKWGU 4-6 HOURS as needed for Rnay329Ordkvmlec2018 12:00amSept2023 6:33pmCalculus of ureter Calculus of ureterTamsulosin (Flomax) 0.4 mg capsuleDiscontinued0.8FCHWUvvjg61 February 11, 2019 12:00amSept2023 6:32pmOndansetron 4 mg Tablet,XcawqlejfdmueuSvdolmsdximh5TATOzgjxp 6 to 8 hours as needed for Otgttw759 February 11, 2019 12:00amSept2023 6:33pmNaproxen (Naprosyn) 500 mg ZceeyaUcwsodjokgkj792FZRPI33Y620Syvkgyczr 21st, 2019 12:00amSept2023 6:33pmadminister with food or milkNirmatrelvir-Ritonavir (Paxlovid) 300 mg (150 mg x 2)-100 mg tablets,dose kmbwYjhdahgzcmxt3IF.BAZHXNB354Jfcpiyquj 2023 12:00amSeptember 2023 6:58pmtake TWO 150 mg tablets of nirmatrelvir with ONE 100 mg tablet of ritonavir twice daily for 5 days PONirmatrelvir- Ritonavir (Paxlovid) 300 mg (150 mg x 2)-100 mg tablets,dose bmebAxffqlzfatcy9BR .MPENJHL523Hgcgmnsso 11th, 2024 12:00amSept2024 12:41pmtake TWO 150 mg tablets of nirmatrelvir with ONE 100 mg tablet of ritonavir twice daily for 5 days POSulfamethoxazole-Trimethoprim 800-160 mg qvvnrkGxxmap2ETPDYDssnq 12 hours 1050Sept2024 12:00amUnknownPhenazopyridine (Pyridium) 200 mg tablet Criutv244CVJTWyzzu times daily as needed for ojqj594Milqdpqvj 20th, 2025 12:00am Unknown Procedures Procedure Date Performed Status Urine Culture February 10, 2025 completed Relevant Diagnostic Tests and/or Laboratory Data Laboratory Results Test Collection Date/Time Result Date/Time Result Interpretation Reference Range Result Comment Performing Site Urine Color February 10, 2025 12:50pm February 10, 2 025 12:53pm yellow Urine AppearanceSept2024 12:50pmSept2024 12:53pmcloudy Urine Specific GravitySept[facility] 2024 12:50pmSept2024 12:53pm >=1.030Urine pHSept2024 12:50pmSept2024 12:53pm6.0Urine Leukocyte EsteraseSept2024 12:50pmSept2024 12:53pmsmall Urine NitriteSept2024 12:50pmSept2024 12:53pmNegative Urine ProteinSept2024 12:50pmSept2024 12:54qe551Ocfll Glucose (UA)February 10, 2025 12:50pmSe2024 12:53pmnegative Urine KetonesSept2024 12:50pmSept2024 12:53pmnegative Urine UrobilinogenSept2024 12:50pmSept2024 12:53pm0.2 Urine BilirubinSept2024 12:50pmSept2024 12:53pmnegative Urine Occult BloodSept2024 12:50pmSept2024 12:53pm trace-intact Microbiology Results Procedure Source Result Collection Date/Time Result Date/Time Result Comment Performing Site Urine Culture Urine Escherichia coli (MDRO) Sep tember 2024 12:35pm February 13, 2025 2:40pm [facility] [id number] [address] [place] [id number] Vital Signs Vital Reading Result Reference Range Collection Date/Time Height 65 [in_i] February 10, 2025 12:67rbQuigtd20.89 kgFebruary 10, 2025 12:39pmBody Sbivkhcocag47.6 [degF]97.6-99.0February 10, 2025 12:39pmHeart Rate77 /min 60-100February 10, 2025 12:39pmRespiratory rate18 /ztr89-03KkjynnehfFebruary 10, 2025 12:39pmOxygen saturation by Pulse xkbhprru41 %95-100February 10, 2025 12:39pmBP Acubztcg667 mm[Hg]100-140February 10, 2025 12:39pmBP Tiqsdkzib85 mm[Hg]60-100pt2024 12:39pmBMI (Body Mass Index)34.4 kg/c1TorkduyvpFebruary 10, 2025 12:39pm Advance Directives Advance Directive Response Recorded Date/ Time Advance Directives No March 29, 2018 6:45pm Insurance Providers Guarantor Ventura Mahan Address [address] [address]Ibhtdqc Info.Home Phone: Coverage Status Update:2025 Payer Group Member ID Coverage Type Subscriber Relationship to Subscriber Effective Date Expiration Date Silvia PRESTON/LUIGI Id: [id number] Russell , M Id: [id number] [address] [facility] [address] Home Phone: Email: [email or web address] Encounters Encounter Location(s) Arrival/Admit Date Discharge/Departure Date Discharge/Departure Disposition Provider(s) Departed Physician/ Provider Office Visit -[facility] February 10, 2025 12:24pm February 10, 2025 1:00pm Discharged to home care or self care (routine discharge) Ventura Duarte APRN Departed Clinical -[facility] February 10, 2025 12:35pm February 10, 2025 12:36pm Discharged to home care or self care (routine discharge) Ventura Duarte APRN Departed Clinical -Flu Vaccine March 02, 2025 9:00am March 02, 2025 9:30am Discharged to home care or self care (routine discharge) Babar Carbajal DO Departed Referred -[facility] March 12, 2025 12:31pm March 12, 2025 12:32pm Discharged to home care or self care (routine discharge) Jaxson Gonzales Recent Diagnosis Onset Date Admit Date Acute UTI Unknown February 10, 2025 12:24pm Assessments Diagnosis Onset Date Resolution Status Admit Date Acute UTI acuteSept2024 12:24pm Plan of Treatment Author Tania Dove [facility] 2:08pm UA with Small leukocytes, trace [...] Future Visits Future appointment information is unavailable Future Procedures Future procedure information is unavailable Future Medications Future medication information is unavailable Patient Instructions Patient instructions are unavailable
--- OUTSIDE RECORDS SUMMARY | 2025-03-15 10:02 | XMS_ITS | Encounter Summary ---
Author Organization [facility] Address [address] [place] [address] Care Team Providers Care Barrel Bridge Assembler Name Role Phone Warren Prieto DO Primary Care Provider [phone] Encounter Details DateTypeDepartmentCare Team (Latest Contact Info)Xfvwienpjkx84/22/2025bstract [facility] [address] [place] [address] [place] [address] Adia Murphy [place] Social History Tobacco UseTypesPacks/DayYears UsedDateSmoking Tobacco: FormerCigarettes Smokeless Tobacco: NeverAlcohol UseStandard Drinks/WeekCommentsNever0 (1 standard drink = 0.6 oz pure alcohol)Caffeine: > 4 cups/day sodaPHQ-2AnswerDate RecordedPatient Health Questionnaire-2 Mxilp940CommentsUnknown Sex and Gender InformationValueDate RecordedSex Assigned at BirthNot on file Legal VowMjrjqb31/15/2023 6:48 PM EDTGender IdentityNot on fileSexual OrientationNot on filedocumented as of this encounter Plan of Treatment Not on file documented as of this encounter Visit Diagnoses Not on filedocumented in this encounter Care Teams Team MemberRelationshipSpecialtyStart DateEnd Date Warren Prieto DO [address] [place] [address] PCP - GeneralFamily Medicine09/29/22documented as of this encounter
--- OUTSIDE RECORDS SUMMARY | 2025-03-15 10:02 | XMS_ITS | Encounter Summary ---
Author Organization [facility] Address [address] [place] [address] Care Team Providers Care Manager Consumer Name Role Phone Warren Prieto DO Primary Care Provider [phone] Encounter Details DateTypeDepartmentCare Team (Latest Contact Info)Uphdlgxjipd95/21/2025amboo flowsheet [facility] [address] [place] [address] Jaxson Gonzales DO [address] [facility] [address] [facility] [address] [place] [place] [id number] Social History Tobacco UseTypesPacks/DayYears UsedDateSmoking Tobacco: FormerCigarettes Smokeless Tobacco: NeverAlcohol UseStandard Drinks/WeekCommentsNever0 (1 standard drink = 0.6 oz pure alcohol)Caffeine: > 4 cups/day sodaPHQ-2AnswerDate RecordedPatient Health Questionnaire-2 Lqntu154CommentsUnknown Sex and Gender InformationValueDate RecordedSex Assigned at BirthNot on file Legal HiaLlajeo56/15/2023 6:48 PM EDTGender IdentityNot on fileSexual OrientationNot on filedocumented as of this encounter Plan of Treatment Not on file documented as of this encounter Visit Diagnoses Not on filedocumented in this encounter Care Teams Team MemberRelationshipSpecialtyStart DateEnd Date Warren Prieto DO [address] [facility] [place] [address] PCP - GeneralFamily Medicine09/29/22documented as of this encounter
--- OUTSIDE RECORDS SUMMARY | 2025-03-15 10:02 | XMS_ITS | Clinical Summary ---
Author Organization [facility] Address [address] [place] [address] Care Team Providers Care Apprentice Plumber Name Role Phone Warren Prieto DO Primary Care Provider [phone] Allergies Active AllergyReactionsCriticalityNoted PlicOkjxuypkHgzfhcsdojqbRfolh48/18/2023 Levofloxacin In D5w08/09/2013 Medications No known medications Active Problems ProblemNoted DateDiagnosed DateHuman papilloma virus (HPV) wnlohuxdl53/18/2023 Liver lesion, right lobe02/08/2023Low grade squamous intraepithelial lesion (LGSIL) on cervicovaginal cytologic smear02/08/20230307Irloemqkbwn57/18/2023Obesity 02/08/2023ain in lijskw9202/08/20230109Hjralpktt98/18/2023Thrombocytopenic disorder 3Distal radius zgiqtbam97/10/2014 Encounters DateTypeDepartmentCare OspjTqworjjcuft83/22/2025bstract [facility] [address] [address] [place] [address] Adia Murphy MA 03/13/2025 10:40 [place] [address] Jaxson Gonzales DO LGSIL of cervix of undetermined significance; Menorrhagia with regular cycle; Dyspareunia in female; Pelvic pain; History of endometrial rbsontxc90/21/2025amboo flowsheet [facility] [address] [place] [address] Jaxson Gonzales DO 03/12/2025 9:30 AM EDTProcedure Visit [facility] [address] [place] [address] Jaxson Gonzales DO Pre-op examination; Menorrhagia with regular cycle; Pelvic pain in female; Dysmenorrhea; Dyspareunia, female; HGSIL (high grade squamous intraepithelial lesion) on Pap smear of cervixfrom Last 3 Months Immunizations ImmunizationAdministration DatesNext RmbZPJ7006/25/1991,12/02/1990,04/22/1990, 01/31/1990Hib (PRP-T)03/31/1991,12/02/1990IPV106/25/1991,04/22/1990,01/31/1990 Influenza, seasonal, injectable, preservative free08/14/2024MMR106/25/1991, 03/31/1991Meningococcal VPJ3T1310/05/2006Tdap11/19/2014 Family History Medical HistoryRelationNameCommentsNo Known ProblemsDaughter 1No [...] > 4 cups/day sodaPHQ-2AnswerDate RecordedPatient Health Questionnaire-2 Btlry829CommentsUnknownSex and Gender InformationValueDate RecordedSex Assigned at BirthNot on fileLegal SexFemale 08/05/2022 6:48 PM EDTGender IdentityNot on fileSexual OrientationNot on file Last Filed Vital Signs Vital SignReadingTime TakenCommentsBlood Vdamtxfu749/8010 10:32 AM EDT Yvcuu8462 10:23 AM RSHBtslinusaeq90.2 ??C (97.1 ??F)09/11/2024 10:23 AM EDTRespiratory Rate--Oxygen Eyclbschje50%09/11/2024 10:23 AM EDTInhaled Oxygen Concentration--Ptbkzm19.3 kg (210 lb)03/13/2025 10:32 AM LEQVezhtu737.1 cm (5' 5 )09/11/2024 10:23 AM EDTBody Mass Index34.95009/11/2024 10:23 AM EDT Plan of Treatment Health MaintenanceDue DateLast DoneCommentsHPV/Hmcsvf105005/30/2019 Cervical Cancer Hupzajxbi45/25/2028Pap SmearInfluenza JoodzdbDpiwyowrv75/10/2025, 08/14/2024 Procedures Procedure NamePriorityDate/TimeAssociated DiagnosisCommentsPOCT , URINE Gquyarn0803/12/2025 9:44 AM EDT Pre-op examination Menorrhagia with regular cycle Pelvic pain in female Dysmenorrhea Dyspareunia, female HGSIL (high grade squamous intraepithelial lesion) on Pap smear of cervix PAP SMIBQWlecfno69/25/2025 12:00 AM EDTTHIN PREP (R) TIS W/RFL IF ASCUS HPV MRNA Dqsbaij9605/30/2019 12:00 PM EST from Last 3 Months or Most Recently Relevant to Health Maintenance Results * POCT , urine manually resulted (03/12/2025 9:44 AM EDT)ComponentValue Ref RangeTest MethodAnalysis TimePerformed AtPathologist SignaturePreg Test, UrNegativeNegativeSpecimen (Source)Anatomical Location / LateralityCollection Method / VolumeCollection TimeReceived OlzlPgrqb94/20/2025 9:44 AM EDT Narrative Authorizing ProviderResult TypeResult [...] 12:00 PM EST Narrative Authorizing ProviderResult TypeResult StatusGeoresha Prieto DOECW LABSFinal ResultPerforming OrganizationAddressCity/State/ZIP CodePhone Number ECW NONXML LABS from Last 3 Months or Most Recently Relevant to Health Maintenance Insurance Care Teams Team MemberRelationshipSpecialtyStart DateEnd Date Warren Prieto DO [address] [place], [place] [id number] PCP - GeneralFamily Medicine09/29/22
--- OUTSIDE RECORDS SUMMARY | 2025-03-15 10:02 | XMS_ITS | Clinical Summary ---
Author Organization [facility] Address [address] [place] [address] Phone Care Team Providers Care Glass Carrier Name Role Phone Unavailable Primary Care Provider Unavailabl e Social History Tobacco UseTypesPacks/DayYears UsedDateSmoking Tobacco: Never Assessed CommentsUnknownSex and Gender InformationValueDate RecordedSex Assigned at Not on fileLegal HqbSzmjwg94/26/2022 6:29 PM ESTGender IdentityNot on fileSexual OrientationNot on file Plan of Treatment Not on file
--- OUTSIDE RECORDS SUMMARY | 2025-03-15 10:02 | XMS_ITS | Clinical Summary ---
Author Organization [facility] Address [address] [place] [address] Care Team Providers Care Crew Boat Operator Name Role Phone MadieWarren archer Primary Care Provider [phone] Allergies Active AllergyReactionsCriticalityNoted DateCommentsLevofloxacin In D5w 08/09/2013 Medications MedicationSigDispense QuantityRefillsLast FilledStart DateEnd DateStatus ibuprofen (ADVIL;MOTRIN) 200 MG tablet Take 200 mg by mouth every 6 hours as needed for Pain.Active Active Problems ProblemNoted DateDiagnosed DateDistal radius pwqhjoic38/10/2014 Social History Tobacco UseTypesPacks/DayYears UsedDateSmoking Tobacco: FormerAlcohol Use Standard Drinks/WeekCommentsNo0 (1 standard drink = 0.6 oz pure alcohol) CommentsNoSex and Gender InformationValueDate RecordedSex Assigned at BirthNot on fileLegal WqmIavsjd97/10/2013 10:16 AM ESTGender IdentityNot on fileSexual OrientationNot on file Last Filed Vital Signs Vital SignReadingTime TakenCommentsBlood Wyyebfvg247/7404 2:47 PM EDT Qssdw967808/09/2013 11:15 AM DCGNcpdxcuxaow16.6 ??C (97.9 ??F)08/09/2013 11:15 AM EDTRespiratory Tvsk608808/09/2013 11:15 AM EDTOxygen Djppnappec66%08/09/2013 11:15 AM EDTInhaled Oxygen Concentration--Myeyow86 kg (130 lb 1.1 oz)09/14/2013 2:54 PM QVJWmbclr319 cm (5' 4.96 )09/14/2013 2:54 PM EDTBody Mass Index21.67 09/14/2013 2:54 PM EDT Plan of Treatment Not on file Care Teams Team MemberRelationshipSpecialtyStart DateEnd Date Warren Prieto DO [address] [place] [address] [facility] - General08/09/13
--- OUTSIDE RECORDS SUMMARY | 2025-03-15 10:06 | XMS_ITS | CCD ---
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 Name Role Phone Gabino Prieto Primary Care Provider Unavaila willy GONZALES, DR PAIZ Admitting Unavailable CHRISTIAN, DR PAIZ Attending Unavailable KASHAN, DR Stoney JAY Primary Care Unavailable CHRISTIAN, DR PAIZ Consulting Unavailable AGUBOSIM, SHILA Consulting Unavailable SERENE MARTINO Consulting Unavailable ARTIE LI Consulting Unavailable ELLEN WARREN Attending Unavailable ELLEN WARREN Admitting Unavailable MAGDALENO, DR Stoney JAY Primary [...] MAGDALENO, DR Stoney JAY Primary Care Unavailable KASHAN, DR Stoney JAY Referring Unavailable CHRISTIAN, DR PAIZ Consulting Unavailable Warren Prieto DO Primary Care Provider Gabino Prieto DO Primary Care Provider [phone] Wes John DO Attending Provider Jaxson Gonzales DO Attending Provider [phone] Kanani DMD, Genaro Attending Unavailable Warren Prieto DO Primary Care Unavailable Kanani DMD, Genaro Unavailable Unavailable Tania Dove APRN Attending Provider Gabino Prieto DO Primary Care Provider [phone] [facility] Adeel CORREA Attending Provider Jaxson Gonzales DO Attending Provider [phone] JAXSON GONZALES Attending Unavailable JAXSON GONZALES Attending Unavailable CORRINE LAMAR Attending Unavailable JAXSON GONZALES Attending Unavailable MADI ALVARES Attending UnavailELLEN Pina Attending Unavailable CORRINE LAMAR Attending Unavailable JAXSON GONZALES Attending Unavailable [facility]ending Unavailable [facility] Adeel QUINN Admitting Unavailable Jaxson Gonzales Attending Unavailable Jaxson Gonzales Admitting Unavailable Jaxson Gonzales Attending Unavailable Jaxson Gonzales Admitting Unavailable Wes John Jr Attending Unavailable Wes John Jr Admitting Unavailable Gabino Prieto Primary Care Unavailable Tania Dove Attending Unavailable Tania Dove Admitting Unavailable [facility] Attending Unavailable [facility] Hospital[facility] Admitting Unavailable Unavailable Unavailable Unavailable Allergies Allergy ClassificationReported Allergen(s)Allergy TypeDate of OnsetReaction(s) Facility (20 sources)levoFLOXacin; Translations: [levofloxacin]Drug Hmfvwwi42-95-[address] [facility] (1 source)levoFLOXacinDrug Sxffbjq14-17-9092[facility] (14 sources)levoFLOXacinDrug Ikapdwx07-23-7104[facility] Medications Current Medications MedicationDrug Class(es)DatesSig (Normalized)Sig (Original)benzonatate 100 mg oral capsule (2 sources)Non-narcotic AntitussiveStart: 07-05-2024 End: 32-59-4961duem 1 capsule by mouth three times daily as needed for cough benzonatate (Tessalon) 100 MG capsule TAKE 1 CAPSULE BY MOUTH 3 TIMES A DAY NEEDED FOR COUGH 07/05/2024 08/22/2024 Discontinuedbrompheniramine maleate 0.4 mg/ml / dextromethorphan hydrobromide 2 mg/ml / pseudoephedrine hydrochloride 6 mg/ml oral solution (4 sources)alpha-Adrenergic Agonist, Uncompetitive X-ljzwdx-S-aspartate Receptor Antagonist, Sigma-1 AgonistStart: 09-11-2024 End: 65-55-5219axme 5 mL by mouth four times daily as needed for congestion egbhckwhsbsblqq-gcceiwirzqpbxyg-KI 30-2-10 MG/5ML syrup Indications: Viral URI Take 5 mL by mouth 4(four) times a day as needed for congestion for up to 10 days 120 mL 09/11/2024 09/26/2024 Discontinued (Discontinued by another clinician)cephalexin 500 mg oral capsule (2 sources)Cephalosporin AntibacterialStart: 05-22-2024 End: 14-65-5960nvnn 1 capsule by mouth in the morning, [...] 12 hr tablet (2 sources)Start: 07-05-2024 End: 24-48-8855vgwn 5-120 mg by mouth every twelve hours as neededCVS Allergy Relief D 5-120 MG 12 hr tablet TAKE 1 TAB ORALLY EVERY 12 HOURS NEEDED FOR NASAL CONGESTION 07/05/2024 08/22/2024 Discontinuedibuprofen 200 mg oral tablet (2 sources)Nonsteroidal Anti-inflammatory Drug End: 43-89-8234oxfw 1 tablet by mouth every six hours as neededibuprofen 200 MG tablet Take 200 mg by mouth every 6 (six) hours if needed 08/22/2024 DiscontinuedNirmatrelvir-Ritonavir (Paxlovid) 300 mg (150 mg x 2)-100 mg tablets,dose pack (6 sources)Start: 71-29-8904Zjdwshhseuir-Ritonavir (Paxlovid) 300 mg (150 mg x 2)-100 mg tablets,dose pack Active 0 PO .WMYNKFS17 February 02, 2024 12:00am take TWO 150 mg tablets of nirmatrelvir with ONE 100 mg tablet of ritonavir twice daily for 5 days POStart: 02-02-2024 End: 65-18-8335Clryqjvdclws-Ritonavir (Paxlovid) 300 mg (150 mg x 2)-100 mg tablets,dose pack Discontinued 0 PO .COMPLEX February 02, 2024 12:00am February 02, 2024 6:58pm take TWO 150 mg tablets of nirmatrelvir with ONE 100 mg tablet of ritonavir twice daily for 5 days POnitrofurantoin, macrocrystals 25 mg / nitrofurantoin, monohydrate 75 mg oral capsule (3 sources)Nitrofuran AntibacterialStart: 74-78-2380ksks 1 capsule by mouth every twelve hours at mealtimeNo Name (No Known Home Meds) (1 source)Start: 45-83-3512Zr Name (No Known Home Meds) Active February 10, 2025 12:00amPaxlovid, 300/100, 20 x 150 MG & 10 x 100MG tablet therapy pack (2 sources)Start: 02-02-2024 End: 81-64-4118Wlsrseli, 300/100, 20 x 150 MG & 10 x 100MG tablet therapy pack TAKE 3 TABLETS TOGETHER (TWO 150 MG NIRMATRELVIR TABLETS AND ONE 100 MG RITONAVIR TABLET) BY MOUTH TWICE DAILY FOR 5 DAYS. 02/02/2024 08/22/2024 Discontinuedphenazopyridine hydrochloride 200 mg oral tablet (4 sources)Start: 84-00-3678eegk 1 tablet by mouth three times daily as needed for painsulfamethoxazole 800 mg / trimethoprim 160 mg oral tablet (4 sources)Dihydrofolate Reductase Inhibitor Antibacterial, Sulfonamide AntimicrobialStart: 25-11-0154lngz 1 tablet by mouth every twelve hours Completed/Discontinued Medications MedicationDrug Class(es)DatesSig (Normalized)Sig (Original)acetaminophen 325 mg / HYDROcodone bitartrate 5 mg oral tablet (9 sources)Opioid AgonistStart: 02-11-2019 End: 81-64-6302nzer 1 tablet by mouth every four to six hours as needed for pain Hydrocodone-Acetaminophen (Banks) 5-325 mg Tablet Discontinued 1 TAB PO EVERY 4- 6 HOURS as needed for Pain 7 3 0 February 11, 2019 12:00am February 02, 2024 6:33pm Calculus of ureter Calculus of ureterciclopirox 80 mg/ml topical solution (4 sources)Start: 05-22-2024 End: 00-00-4080jhcwynxgyj (Penlac) 8 % solution Indications: Toenail fungus Apply topically at bedtime 6 mL 05/22/2024 08/15/2024 Discontinuedfluticasone propionate 0.05 mg/actuat metered dose nasal spray (10 sources)CorticosteroidStart: 02-08-2023 End: 03-66-1725mhke 1-2 spray(s) nasal route once daily as neededfluticasone (Flonase) 50 MCG/ACT nasal spray Indications: Allergic rhinitis, unspecified seasonality, unspecified trigger USE 1 - 2 SPRAYS IN EACH NOSTRIL ONCE A DAY NEEDED 48 mL 1 02/08/2023 05/22/2024 Discontinuednaproxen 500 mg oral tablet (9 sources)Nonsteroidal Anti-inflammatory DrugStart: 02-11-2019 End: 06-84-8496effs 1 tablet by mouth every twelve hours at mealtimeNaproxen (Naprosyn) 500 mg Tablet Discontinued 500 MG PO Q12H 20 0 February 11, 2019 12:00am February 02, 2024 6:33pm administer with food or milk Nirmatrelvir-Ritonavir (10 sources)Start: 02-02-2024 End: 93-66-9056Hhhjqmjfaypm-Ritonavir (Paxlovid) 300 mg (150 mg x 2)-100 mg tablets,dose pack Discontinued 0 PO .COMPLEX 30 0 February 02, 2024 12:00am February 02, 2024 6:58pm take TWO 150 mg tablets of nirmatrelvir with ONE 100 mg tablet of ritonavir twice daily for 5 days POStart: 02-02-2024 End: 42-30-0887Lqdbucgmdrqs-Ritonavir (Paxlovid) 300 mg (150 mg x 2)-100 mg tablets,dose pack Discontinued 0 PO .COMPLEX 30 February 02, 2024 12:00am February 10, 2025 12:41pm take TWO 150 mg tablets of nirmatrelvir with ONE 100 mg tablet of ritonavir twice daily for 5 days POStart: 02-02-2024 End: 40-06-0734Twwktlhnlueo-Ritonavir (Paxlovid) 300 mg (150 mg x 2)-100 mg tablets,dose pack Discontinued 0 PO .COMPLEX February 02, 2024 12:00am February 02, 2024 6:58pm take TWO 150 mg tablets of nirmatrelvir with ONE 100 mg tablet of ritonavir twice daily for 5 days POStart: 02-02-2024 End: 05-88-3473Cqxgwdcuflve-Ritonavir (Paxlovid) 300 mg (150 mg x 2)-100 mg tablets,dose pack Discontinued 0 PO .COMPLEX February 02, 2024 12:00am February 10, 2025 12:41pm take TWO 150 mg tablets of nirmatrelvir with ONE 100 mg tablet of ritonavir twice daily for 5 days POondansetron 4 mg disintegrating oral tablet (9 sources)Serotonin-3 Receptor AntagonistStart: 02-11-2019 End: 37-61-9778Gklhbczhsjn 4 mg Tablet,Disintegrating Discontinued 4 MG PO every 6 to 8 hours as needed for Kgeshi94 February 11, 2019 12:00am February 02, 2024 6:33pmtamsulosin hydrochloride 0.4 mg oral capsule (9 sources)alpha-Adrenergic BlockerStart: 02-11-2019 End: 20-18-9611kpwq 1 capsule by mouth once dailyTamsulosin (Flomax) 0.4 mg capsule Discontinued 0.4 MG PO Daily 7 February 11, 2019 12:00am February 02, 2024 6:32pm Problems Active Problems Problem ClassificationProblemDateDocumented DateEpisodic/ChronicCalculus of urinary tract (17 sources)Ureteric stone; Translations: [Kidney stone]04-11-8537Vyfkaboc Comment on above:Problem List clean-up per request of Phys. EHR CmteCancer of cervix (20 sources)Cervicovaginal cytology: Low grade squamous intraepithelial lesion; Translations: [Low grade squamous intraepithelial lesion on cytologic smear of cervix (LGSIL)]Onset: 088728-78-9828AppbmeaiKculbtrorxu and hemorrhagic disorders (20 sources)Thrombocytopenic disorder; Translations: [Thrombocytopenia, unspecified]Onset: 673249-89-7691GvnemafPtjerkayxmwhn symptoms and ill- defined conditions (2 sources)Dysuria; Translations: [Dysuria]Onset: 338757-87-3676Wvyfvbud Immunizations and screening for infectious disease (3 sources)Encounter for screening for human papillomavirus (HPV); Translations: [Contact with or exposure to other viral diseases]Onset: 971954-64-6109 EpisodicMenstrual disorders (20 sources)Excessive and frequent menstruation with regular cycle; Translations: [Menorrhagia]Onset: 82-93-4694UxdjudiEgfprep (2 sources)Onychomycosis of toenails; Translations: [Tinea unguium]05-22-2024 EpisodicOther connective tissue disease (2 sources)Pain in right foot; Translations: [Pain in right foot]09-26-2024 EpisodicOther female genital disorders (2 sources)Pain in female genitalia on intercourse; Translations: [Unspecified dyspareunia]69-52-1445KpczjjfCjmyi female genital disorders (1 source)Pain in female pelvis; Translations: [Pelvic pain in female]03-12-2025 EpisodicOther liver diseases (5 sources)Liver disease, unspecified; Translations: [LIVER DISEASE UNSPECIFIED] Onset: 07-68-8365MtvisxkFankt liver diseases (20 sources)Lesion of liver; Translations: [Liver disease, unspecified]Onset: 651503-34-5924IuojesvEdlnm lower respiratory disease (2 sources)Cough; Translations: [Cough, unspecified type]76-90-6316TfoicbecVvfka nutritional; endocrine; and metabolic disorders (20 sources)Obesity; Translations: [Obesity, unspecified]Onset: 02-08-2023 49-35-8561NehlczvMjdum screening for suspected conditions (not mental disorders or infectious disease) (7 sources)Encounter for screening for malignant neoplasm of cervix; Translations: [Encounter for screening for dental disorders]Onset: 08-25-2021 EpisodicOther skin disorders (2 sources)Ingrowing toenail; Translations: [Ingrowing nail]48-96-3358Btupjnqi Other upper respiratory infections (20 sources)Sinusitis; Translations: [Chronic sinusitis, unspecified]Onset: 683358-94-8463WyqhjxeBydtg upper respiratory infections (12 sources)Pharyngitis; Translations: [Acute pharyngitis, unspecified] 09-20-1022KqcbbcskXhninge on above:Problem List clean-up per request of Phys. EHR CmteResidual codes; unclassified (3 sources)History of endometrial ablation; Translations: [Other specified postprocedural states]15-14-9366GuhhowlbOohf and subcutaneous tissue infections (4 sources)Paronychia of toe of right foot; Translations: [Cellulitis of right toe]73-44-6829VcudxkspEzebgjvhczpr (1 source)CONTACT W/AND (SUSP) EXPOS COVID-19; Translations: [CONTACT W/AND (SUSP) EXPOS COVID-19]Onset: 86-96-0786Lerexpfvtbts (4 sources)Pain in pelvis; Translations: [Pain in pelvis]Onset: 02-08-2023 73-56-9464Xugwpcn tract infections (6 sources)Acute urinary tract infection; Translations: [Urinary tract infection, site not specified]69-57-1579Xnzfazos Past or Other Problems Problem ClassificationProblemDateDocumented DateEpisodic/ChronicAbdominal pain (20 sources)Pelvic and perineal pain; Translations: [Unspecified abdominal pain] Onset: 432217-01-1578NetgrjjtJojptyiuumwbp and procreative management (1 source)Tubal ligation status; Translations: [TUBAL LIGATION STATUS]Onset: 31-16-4644NyomdcmnSaazbffv of upper limb (14 sources)Fracture of distal end of radius; Translations: [Unspecified fracture of the lower end of unspecified radius, initial encounter for closed fracture]Onset: 925163-06-7866DxunlmkmQrlejo and vomiting (4 sources)Nausea with vomiting, unspecified; Translations: [NAUSEA WITH VOMITING UNSPECIFIED]Onset: 32-25-8905KlfhyfacVfrflvgpvkpxp gastroenteritis (1 source)Noninfective gastroenteritis and colitis, unspecified; Translations: [NONINFECTIVE GE AND COLITIS UNS]Onset: 15-15-2646UnfpzresUnussixp codes; unclassified (1 source)Acquired absence of other specified parts of digestive tract; Translations: [ACQ ABSENCE OTH PART DIGESTV TRACT]Onset: 52-29-5896Xqajoxow Screening and history of mental health and substance abuse codes (1 source)Personal history of nicotine dependence; Translations: [PERSONAL HISTORY OF NICOTINE DEPEND]Onset: 22-69-3387VejpauagFnsjhmwenkmn (1 source)SRP (chief complaint)Onset: 64-68-0306Ictil infection (20 sources)Disease caused by 2019-nCoV; Translations: [COVID-19]Onset: 541622-87-3330Yesipnih Results Test NameValueInterpretationReference RangeFacilityHCG ( test) Ql (U)on 73-55-8448Jbhmenloxuoovn and review of laboratory resultsUniversity of Michigan Hospital Preg Test, UrNegativeNegativeScotland Memorial HospitalLon 03-12-2025L Specimen: [id number] Received: 03/13/25 Status: LUCIAN Barreto Num: [id number] Spec Type: Surgical Subm Dr: Jaxson Gonzales Tissues: A Endometrium - Biopsy (ENDO BX) Procedures: HE/2, Gross/Micro L4 Age/ Patient Sex Location Account Attending Physician Farzaneh Marvin 34/F LABELL [id number] Jaxson Gonzales SPEC NUM: [id number] RECD: 03/13/25 STATUS: LUCIAN BARRETO NUM: [id number] PERFECTO: 03/12/25 [facility] DR: Jaxson Gonzales ENTERED: 03/13/[address] [facility] [address]: [place],Lab SPEC TYPE: Surgical DEPT: [facility] ENTERED BY: [id number] RECV BY: [id number] ORDERED: HE/2, Gross/Micro L4 ORDERED: HE/2, Gross/Micro L4 Pathological Diagnosis Endometrium, biopsy: - Weakly proliferative phase endometrium with tubal metaplasia and stromal breakdown. - Fragments of benign endocervical mucosa. - No evidence of hyperplasia or malignancy identified. Clinical Information Menorrhagia with regular cycle, pelvic pain Gross Description Received in formalin labeled with the patient's name, date of , and Endometrium, BX are adan-pink to red-brown, delicate tissue fragments, 0.8 x 0.5 x 0.2 cm in aggregate. The specimen is filtered and entirely submitted in a single cassette. (1, anjelica, [id number] A) Microscopic Description Microscopic examination is performed. CPT Codes 58910 Specimen: [id number] Received: 03/13/253754 Status: LUCIAN Alisa Num: [id number] Spec Type: Surgical Subm Dr: Jaxson Gonzales Tissues: A Endometrium - Biopsy (ENDO BX) Procedures: Chad JULIO/Samson L4 Patient: Farzaneh Marvin [id number] (Continued) Signed (signature on file) Tripp Gu MD 03/14/25 1151Normal [facility] GroupLaboratory - Chemistry and Chemistry - challenge Ordered By: Tania Dove on 44-33-5659Yfesimude Ql (U)NegativeAdams County Regional Medical CenterGlucose (U) [Mass/Vol]NegativeAdams County Regional Medical CenterKetones Ql (U)NegativeAdams County Regional Medical CenterpH (U)6.0 [pH] [facility] Hospitalpecific gravity (U) [Rel density]>=1.030 [facility] Medical CenterUrobilinogen (U) [Mass/Vol]0.2 mg/dLAdams County Regional Medical CenterLaboratory - Specimen informationOrdered By: Tania Dove on 84-18-7363Liirythbmy (U)cloudyAdams County Regional Medical CenterColor (U)yellowAdams County Regional Medical CenterLaboratory - UrinalysisOrdered By: Tania Dove on 30-83-1751Yslmzkskp esterase Test strip Ql (U)[facility] Lutheran HospitalNitrite Ql (U)NegativeAdams County Regional Medical Center Protein Ql (U)100[facility] CenterNo Panel InformationOrdered By: Tania Dove on 54-04-3120Vvbek Occult Bloodtrace-intactAdams County Regional Medical CenterUrine Cultureon 65-39-5390Adpajeba identified Cx Nom (U)ORGANISM: Escherichia coli (MDRO) (O:ESCCOLMDRO) [place] Count >100,000 * This is a corrected [...] RESISTANT TO ALL B-LACTAM DRUGS. PERFORMED BY: [place] [address] PATHOLOGIST PROFILE SAW OPERATOR DARIN CADENA M.D.NormalAdventhealth Lake Wales Physician GroupComment on above: Performed By: #### CUU #### [address] Nguyen StreetUrine cultureOrdered By: Tania Dove on 02-10-2025 Bacteria identified Cx Nom (U)Escherichia coli (MDRO)AbnormalAdams County Regional Medical CenterUPPER RESPIRATORY CULTUREon 88-08-8822LHLXM RESPIRATORY CULTURE Upper Respiratory Culture NOMS HealthcareUPPER RESPIRATORY CULTURERoutine respiratory floraNOHarry S. Truman [facility] UPPER RESPIRATORY CULTUREPerformed at: CB - [facility] CountyUPPER RESPIRATORY [address] [place], [place] [id number] S. Truman Memorial [facility]' Hospital RESPIRATORY CULTURELab Director: Anatoliy Argueta PhD, Phone: [phone] HealthcareCLINISYNLOWELL GENERAL [facility]ITAL HealthcareLaboratory - Microbiology and Antimicrobial susceptibilityon 92-68-2488FXPX-CoV-2 (COVID-19) RNA DANIELLE+probe Ql (Unsp spec) NegativeNOCA HealthcareNo Panel Informationon 68-22-4521AEQ ANegativeNOMS HealthcareFLU BNegativeNOCA HealthcareInterpretation and review of laboratory resultsNormalNOWashington County Memorial Hospital HealthcarePathology study report document Ordered By: Tripp Gu on 47-89-2436Eauwrfvlc studyAdams County Regional Medical Center Other Lon 09-05-2024L Specimen: [id number] Received: 09/06/24 Status: LUCIAN Barreto Num: [id number] Spec Type: Surgical Subm Dr: Jaxson Gonzales Tissues: A Endocervix - Curettings (ENDOCERVICAL CURETTINGS) Procedures: HE/2, Gross/Micro L4, Ki-67, CINtec p16 Age/ Patient Sex Location Account Attending Physician Farzaneh Marvin 33/F LABELL [id number] Jaxson Gonzales SPEC NUM: [id number] RECD: 09/06/24 STATUS: LUCIAN BARRETO NUM: [id number] PERFECTO: 09/05/24 [facility] DR: Jaxson Gonzales ENTERED: 09/06/[address] [facility] [address]: [place],Lab SPEC TYPE: Surgical DEPT: [facility] ENTERED BY: [id number] RECV BY: [id number] ORDERED: HE/2, Gross/Micro L4, Ki-67, CINtec p16 [...] submitted in a single cassette. (1, ns, [id number] A) GREG Specimen: [id number] Received: 09/06/24 Status: LUCIAN Barreto Num: [id number] Spec Type: Surgical Subm Dr: Jaxson Gonzales Tissues: A Endocervix - Curettings (ENDOCERVICAL CURETTINGS) Procedures: HE/2, Gross/Micro L4, Ki-67, CINtec p16 Patient: Farzaneh Marvin [id number] (Continued) Specimen: [id number] Received: 09/06/24 (Continued) Signed (signature on file) Tripp Gu MD 09/08/24 1050 Specimen: [id number] Received: 09/06/24 Status: LUCIAN Barreto Num: [id number] Spec Type: Surgical Subm Dr: Jaxson Gonzales Tissues: A Endocervix - Curettings (ENDOCERVICAL CURETTINGS) Procedures: HE/2, Gross/Micro L4, Ki-67, CINtec p16 Patient: Farzaneh Marvin [id number] (Continued) Specimen: [id number] Received: 09/06/24 (Continued) Microscopic Description Microscopic examination is performed. CPT Codes 93631, 53403, 90152 Specimen: [id number] Received: 09/06/24 Status: LUCIAN Barreto Num: [id number] Spec Type: Surgical Subm Dr: Jaxson Gonzales Tissues: A Endocervix - Curettings (ENDOCERVICAL CURETTINGS) Procedures: HE/2, Gross/Micro L4, Ki-67, CINtec p16 Patient: Farzaneh Marvin [id number] (Continued) Signed (signature on file) Tripp Gu MD 09/08/24 1050Normal [facility] Physician GroupIGP,APTIMA HPV,AGE GDLNon 30-29-5366SMK LN ACOG TESTINGNote.NOMS HealthcareComment on above:TESTS RESULT FLAG UNITS REF RANGE LAB Clinician Provided Cytology Information Source.............Cervix;Endocervix No. of containers..01 ThinPrep Vial Age Maximino [place] Paula... FLAG LEGEND: L-Low Normal,H-High Normal,LL-Alert Low,HH-Alert High <-Panic Low,>-Panic High,A-Abnormal,AA-Critical Abnormal Performed at: 01 =G Cassia Smith[address] [place] [address] Wendy Kumar MD, HPV APTIMAPositiveAbnormalNegativeNOMS HealthcareComment on above:This nucleic acid amplification test detects fourteen high- risk HPV types (16,18,31,33,35,39,45,51,52,56,58,59,66,68) without differentiation. Performed at: =G - [facility] [id number] Marina Manager: Wendy Kumar MD, Phone: [phone] Performed at: - [facility], [place] [id number] Marina Manager: Wendy Kumar MD, Phone: [phone] IGP, APTIMA HPV, RFX 16/18,45NoteAbnormal.NOMS HealthcareComment on above:TESTS RESULT FLAG UNITS REF RANGE LAB DIAGNOSIS: [A] 02 EPITHELIAL CELL ABNORMALITY. LOW GRADE SQUAMOUS INTRAEPITHELIAL LESION (LSIL). Recommendation: [A] 02 Suggest follow up as clinically appropriate. Specimen adequacy: 02 Satisfactory for evaluation. Endocervical and/or squamous metaplastic cells (endocervical component) are present. Performed by: 03 No Deshpande, Supply Clerk (ASCP) Electronically si... 02 Wendy Kumar MD, [...] High,A-Abnormal,AA-Critical Abnormal Performed at: 02 WB [facility] [address] [address] Wendy Kumar MD, 03 KWCYT [facility] [place] [facility] [address] [place] [address] Juaquin Calderon MD, Interpretation and review of laboratory resultsAbnormalNOMS Healthcare BRUSH-SPATULA CERVIX ENDOCERVIX CLINISYNCNOMS HealthcareHCG ( test) Ql (U)on 45-33-8006Gturhwfuckrwpn and review of laboratory resultsNormalNOMS HealthcarePreg Test, UrNegative NegativeNOMS HealthcareNOMS HealthcareBasic Metabolic Brand w/Rfx A1Con 08-14-2024 Anion gap [Moles/Vol]10.7 mmol/LNormal6.0-15.0The [facility] Comment on above:Performed By: #### EBS LIPID, EMP BMP #### [facility] [address] [place] [address] USACalcium [Mass/Vol]9.8 mg/dLNormal8.6-10.3The [facility] Physician GroupComment on above:Performed By: #### EBS LIPID, EMP BMP #### [facility] [address] [place] [address] USAChloride [Moles/Vol]103 mmol/DSbghjp02-409Cjy [facility] Physician GroupComment on above:Performed By: #### EBS LIPID, EMP BMP #### [facility] [address] [place] [address] USACO2 [Moles/Vol]29.5 mmol/GFkzlhm06.0-31.0The [place] Physician GroupComment on above:Performed By: #### EBS LIPID, EMP BMP #### [facility] [address] [place] [address] USACreatinine [Mass/Vol]0.73 mg/dLNormal0.60-1.20The [facility] Physician GroupComment on above:Performed By: #### EBS LIPID, EMP BMP #### [facility] [address] [place] [address] USAGFR/1.73 sq M.predicted MDRD (S/P/Bld) [Vol rate/Area] mL/min/{1.73_m2}NormalThe [facility] Physician GroupComment on above:Performed By: #### EBS LIPID, EMP BMP #### [facility] [address] [place] [address] USAGlucose [Mass/Vol]85 mg/yDAtrczq04-926Xpo [facility] Physician GroupComment on above:Performed By: #### EBS LIPID, EMP BMP #### [facility] [address] [place] [address] USAPotassium [Moles/Vol]4.2 mmol/LNormal3.5-5.1The [facility] Physician GroupComment on above:Performed By: #### EBS LIPID, EMP BMP #### [place] [address] USASodium [Moles/Vol]139 mmol/RWublsu124-957Lja [facility] Physician GroupComment on above:Performed By: #### EBS LIPID, EMP BMP #### [facility] [address] [place] [address] USAUrea nitrogen [Mass/Vol]10 mg/dLNormal7-25The [facility] Physician GroupComment on above:Performed By: #### EBS LIPID, EMP BMP #### [facility] [address] [place] [address] USACalcium [Mass/volume] in Serum or PlasmaOrdered By: Wes John on 53-52-4378Mqgqwxt [Mass/Vol]Calcium [Mass/volume] in Serum or Plasma 8.6-10.3FOhioHealth Grant Medical CenterCarbon dioxide, total [Moles/volume] in Serum or PlasmaOrdered By: Wes oJhn on 43-26-1329NF5 [Moles/Vol]Carbon dioxide, total [Moles/volume] in Serum or Qyrvtt22.0-31.0[facility] CenterChloride [Moles/volume] in Serum or PlasmaOrdered By: Wes John on 44-65-7210Nufszhnj [Moles/Vol]Chloride [Moles/volume] in Serum or Xkjmff06-939VvehsdbggAdams County Regional Medical CenterCholesterol [Mass/volume] in Serum or PlasmaOrdered By: Wes John on 05-16-3915Vpgmsfwppti [Mass/Vol] Cholesterol [Mass/volume] in Serum or Ryxhnn132-021UwitjllryAdams County Regional Medical CenterComment on above:Chol less than 200 mg/dl low riskChol 201-239 mg/dl borderline riskChol 240 mg/dl and greater high riskCholesterol in HDL [Mass/volume] in Serum or PlasmaOrdered By: Wes John on 08-14-2024 Cholesterol in HDL [Mass/Vol]Serum or plasma high density lipoprotein (HDL) cholesterol oclvhdkvflj30-78XbjqbocxyAdams County Regional Medical CenterComment on above: HDL CHOL ATP-III CLASSIFICATION Cardiovascular RiskHDL > or equal to 60 mg/dL LOWHDL < 40 mg/dL HIGHCholesterol in LDL Calc [Mass/Vol]Ordered By: Wes John on 67-68-0124Boqrorkpdvv in LDL [Mass/Vol]Cholesterol in LDL [Mass/volume] in Serum or Plasma by calculationHigh0-100[facility] Medical CenterComment on above:LDL ATP III CLASSIFICATIONLDL less than 100 mg/dL OptimalLDL 100-129 mg/dL Near or above ylvscazGIN665-966 mg/dL Borderline highLDL 160-189 mg/dL HighLDL greater than 189 mg/dL Very highCholesterol in VLDL Calc [Mass/Vol]Ordered By: Wes John on 64-96-0608Egxswyzlhbj in VLDL [Mass/Vol]Cholesterol in VLDL [Mass/volume] in Serum or Plasma by calculation [facility] Medical CenterCreatinine [Mass/volume] in Serum or Plasma Ordered By: Wes John on 94-54-7522Nqfplgcdhy [Mass/Vol]Creatinine [Mass/volume] in Serum or Plasma0.60-1.20[facility] Glucose [Mass/volume] in Serum or PlasmaOrdered By: Wes John on 08-14-2024 Glucose [Mass/Vol]Glucose [Mass/volume] in Serum or Xkjmbl56-728QqujihueuAdams County Regional Medical CenterLipid Profileon 03-62-9401Vcvtqwqzzhz [Mass/Vol]194 mg/dL Eppyaz731-707Xwb [facility] Physician GroupComment on above:Result Comment: Chol less than 200 mg/dl low risk Chol 201-239 mg/dl borderline risk Chol 240 mg/dl and greater high riskPerformed By: #### EBS LIPID, EMP BMP #### [facility] [address] [place] [address] USACholesterol in HDL [Mass/Vol]54 mg/kRHsovpq32-93Lqm [facility] Physician GroupComment on above:Result Comment: HDL CHOL ATP-III CLASSIFICATION Cardiovascular Risk HDL > or equal to 60 mg/dL LOW HDL < 40 mg/dL HIGHPerformed By: #### EBS LIPID, EMP BMP #### [facility] [address] [place] [address] USACholesterol.total/Cholesterol in HDL [Mass ratio]3.6 {ratio}Normal<5.0The [facility] Hospital Physician GroupComment on above:Result Comment: PERFORMED BY: [place] [id number] PATHOLOGIST PROFILE SAW OPERATOR CHARITY MENDIETA M.D.Performed By: #### EBS LIPID, EMP BMP #### [facility] [address] [place] [address] USALDL Cholesterol,Keanzvqyhb299 mg/dLHigh0-100The [facility] Hospital Physician GroupComment on above:Result Comment: LDL ATP III CLASSIFICATION LDL less than 100 mg/dL Optimal LDL 100-129 mg/dL Near or above optimal LDL 130-159 mg/dL Borderline high LDL 160-189 mg/dL High LDL greater than 189 mg/dL Very highPerformed By: #### EBS LIPID, EMP BMP #### [facility] [address] [place] [address] USATriglyceride w/Oozoqd156 mg/dLNormal0-149The [facility] Physician GroupComment on above:Result Comment: TRIG ATP III CLASSIFICATION TRIG less than 150 mg/dL Normal TRIG 150-199 mg/dL Borderline high TRIG 200-500 mg/dL High TRIG greater than 500 mg/dL Very high Standard traceable to the Center for Disease Conrtrol and Prevention (CDC) test method.Performed By: #### EBS LIPID, EMP BMP #### [facility] [address] [place] [address] USAVLDL WSJMAXLDFTA55 mg/dLNoNovant Health Charlotte Orthopaedic Hospital Physician GroupComment on above:Performed By: #### EBS LIPID, EMP BMP #### [facility] [address] [place] [address] USANo Panel InformationOrdered By: Wes John on 47-69-4881Zkldljiih GFR (CKD-EPI)> 60.0 mL/MinAdams County Regional Medical Center Pharmacy Creatinine Clearance (ChemN/[facility] Health MiamisburgPotassium [Moles/volume] in Serum or PlasmaOrdered By: Wes John on 08-14-2024 Potassium [Moles/Vol]Potassium [Moles/volume] in Serum or Plasma3.5-5.1FElyria Memorial Hospitalerum or plasma anion gap determinationOrdered By: Wes John on 51-92-4122Ucsol gap [Moles/Vol]Serum or plasma anion gap determination6.0-15.0Kn[facility] Community Hospitalerum or plasma total cholesterol/high density lipoprotein (HDL) cholesterol mass ratOrdered By: Wes John on 15-83-6419Uofbdyrbhnj.total/Cholesterol in HDL [Mass ratio] Serum or plasma total cholesterol/high density lipoprotein (HDL) cholesterol mass rat<5.0Kn[facility] Community Hospitalodium [Moles/volume] in Serum or PlasmaOrdered By: Wes John on 54-20-8547Ftcbvj [Moles/Vol]Sodium [Moles/volume] in Serum or Vnsckn922-520KhsjsrdcoAdams County Regional Medical Center Triglyceride [Mass/volume] in Serum or PlasmaOrdered By: Wes John on 15-42-4616Xqfkcsoklvkz [Mass/Vol]Triglyceride [Mass/volume] in Serum or Plasma 0-149[facility] CenterComment on above:TRIG ATP III CLASSIFICATIONTRIG less than 150 mg/dL NormalTRIG 150-199 mg/dL Borderline highTRIG 200-500 mg/dL High TRIG greater than 500 mg/dL Very highStandard traceable to the Center for Disease Conrtrol and Prevention (CDC) test method. Urea nitrogen [Mass/volume] in Serum or PlasmaOrdered By: Wes John on 14-12-8972Lbfi nitrogen [Mass/Vol]Urea nitrogen [Mass/volume] in Serum or Plasma 12-15[facility] CenterNo Panel InformationOrdered By: Hilaria Shell on 44-46-9020Inlfd Strep (POC)[facility] CenterCBC AUTO DIFFon 51-82-8835CSQI #0.0 103/ulNormal0.0-0.1The [facility] ShawComment on above: Performed By: #### CBC #### [facility] [address] [address] [address] Cain McwilliamsBasophils/100 WBC (Bld)0.4 %Normal0.2-2.0[facility] Comment on above:Performed By: #### CBC #### [facility] [address] [address] [address] Cain Jaramillo #0.1 103/ulNormal0.0-0.7The [facility] ShawComment on above: Performed By: #### CBC #### [facility] [address] [address] [address] Cain Ramseyosinophils/100 WBC (Bld)2.0 %Normal0.9-7.0[facility] Comment on above:Performed By: #### CBC #### [facility] [address] [address] [address] Cain Ramseyrythrocyte distribution width (RBC) [Ratio]12.8 %Vwxmzq02.0-15.0 [facility] HospitalComment on above:Performed By: #### CBC #### [facility] [address] [address] [address] Cain McwilliamsHematocrit (Bld) [Volume fraction]40.6 %Sejoun70.0-48.0The [facility] ShawComment on above:Performed By: #### CBC #### [facility] [address] [address] [address] Cain McwilliamsHemoglobin (Bld) [Mass/Vol]14.1 g/rBYmtsas73.0-16.0The [facility] ShawComment on above:Performed By: #### CBC #### [facility] [address] [address] [address] Cain Lal #0.01 10e3/ulNormal0.00-0.03The [facility] ShawComment on above:Performed By: #### CBC #### [facility] [address] [place] [address] Dr. Cain Lal %0.2 %Normal0.0-0.5The [facility] ShawComment on above: Performed By: #### CBC #### [facility] [address] [place] [address] Dr. Cain Tafoya #1.1 103/ulCritically low1.2-3.8The [facility] Comment on above:Performed By: #### CBC #### [facility] [address] [place] [address] Dr. Cain Justicehocytes/100 WBC (Bld)24.6 %Ufcsqv71.5-60.0The [facility] ShawComment on above:Performed By: #### CBC #### [facility] [address] [place] [address] Dr. Cain MaciasUAL DIFF REQNONormalThe [facility] ShawComment on above: Performed By: #### CBC #### [facility] [address] [place] [address] Dr. Cain Knox (RBC) [Entitic mass]30.1 fhDqpnfm77.7-34.0The [facility] ShawComment on above:Performed By: #### CBC #### [facility] [address] [place] [address] Dr. Cain Knox (RBC) [Mass/Vol]34.7 g/fBAdgfim37.9-35.2The [facility] ShawComment on above:Performed By: #### CBC #### [facility] [address] [place] [address] Dr. Cain KnoxV (RBC) [Entitic vol]86.8 lIWfddzc46.0-99.0The Luther[facility] Hospitalment on above:Performed By: #### CBC #### [facility] [address] [place] [address] Dr. Cain Obrien #0.3 103/ulNormal0.3-0.8The [facility] ShawComment on above:Performed By: #### CBC #### [facility] [address] [place] [address] Dr. Cain Davisocytes/100 WBC (Bld)6.5 %Normal1.7-12.0The [facility] Comment on above:Performed By: #### CBC #### [facility] [address] [place] [address] Dr. Cain Topete #3.1 103/ulNormal1.4-6.5The [facility] ShawComment on above:Performed By: #### CBC #### [facility] [address] [place] [address] Dr. Cain Shenutrophils/100 WBC (Bld)66.3 %Zmhcff29.0-75.0The [facility] ShawComment on above:Performed By: #### CBC #### [facility] [address] [place] [address] Dr. Cain Doranteslet mean volume (Bld) [Entitic vol]10.9 fLNormal9.5-13.5The [facility] Hospitalment on above:Performed By: #### CBC #### [facility] [address] [place] [address] Dr. Cain McwilliamsPLT141 103/ulCritically ykc854-874Fea [facility] ShawComment on above:Performed By: #### CBC #### [facility] [address] [place] [address] Dr. Cain McwilliamsRBC4.68 106/ulNormal4.20-5.40The [facility] ShawComment on above:Performed By: #### CBC #### [facility] [address] [address] [address] Cain McwilliamsWBC4.6 103/ulNormal4.0-11.0The [facility] on above: Performed By: #### CBC #### [facility] [address] [address] [address] Cain McwilliamsFREE T4on 96-79-3813Urou T4 [Mass/Vol]0.99 ng/dLNormal0.76-1.46 The [facility] on above:Performed By: #### FT4 #### [facility] [address] [address] [address] Cain McwilliamsGLYCOHEMOGLOBIN A1Con 06-41-1772FNM RECOMMENDATIONSEE BELOWNoMiami Valley HospitalComcorewell health ludington hospital on above:Result Comment: ADA RECOMMENDED LIMIT 4.0 - 6.0 ADA THERAPEUTIC TARGET < 7.0 ACTION SUGGESTED > 7.0Performed By: #### A1C #### [facility] [address] [place] [address] Dr. Cain McwilliamsGlucose [Mass/Vol]97 mg/dLOhio Valley Hospital on above:Performed By: #### A1C #### [facility] [address] [address] [address] Cain McwilliamsHbA1c (Bld) [Mass fraction]5.0 %Normal4.5-6.2The [facility] on above:Performed By: #### A1C #### [facility] [address] [address] [address] Cain McwilliamsPROTIMEon 76-37-8746LIQ Coag (PPP) [Relative time]0.95 {INR} NormalThe [facility] on above:Performed By: #### CBC #### [facility] [address] [place] [address] Dr. Cain Silva GUIDELINESSEE BELOWFairfield Medical CenterComcorewell health ludington hospital on above:Result Comment: DESIRED INR: 2.0 - 3.0 CONDITIONS NOT LISTED BELOW 2.5 - 3.5 FOR PROSTHETIC HEART VALVE REPLACEMENT 2.5 - 3.5 RECURRENT THROMBOSIS Performed By: #### CBC #### [facility] [address] [place], [place] [address] Dr. Cain Romo Coag (PPP) [Time]10.1 sNormal9.0-11.6The [facility] Comment on above:Performed By: #### CBC #### [facility] [address] [place] [address] Dr. Cain Bahena 86-26-1947rBDV Coag (Bld) [Time]29.4 uZajsgg74.3-36.2The [facility] ShawComment on above:Performed By: #### CBC #### [facility] [address] [place] [address] Dr. Cain Smith 69-74-1900TCD4.596 uIU/mLNormal0.358-3.740The [facility] ShawComment on above:Performed By: #### TSH #### [facility] [address] [place] [address] Dr. Cain Perera PELVIS AND TRANSVAGon 39-30-5556LJ PELVIS AND TRANSVAG EXAMINATION: US PELVIS AND [...] Electronically authenticated by: MALICK ESPINOZA Date: 2022-06-22 16:[address] [place] [address] AUTO DIFFon 15-09-0861RIQD #0.0 103/ulNormal0.0-0.1The [facility] ShawComment on above:Performed By: #### CBC #### [facility] [address] [place] [address] Dr. Cain McwilliamsBasophils/100 WBC (Bld)0.4 %Normal0.2-2.0The [facility] Comment on above:Performed By: #### CBC #### [facility] [address] [place] [address] Dr. Cain Jaramillo #0.0 103/ulNormal0.0-0.7The [facility] ShawComment on above: Performed By: #### CBC #### [facility] [address] [place] [address] Dr. Cain Ramseyosinophils/100 WBC (Bld)0.8 %Critically low0.9-7.0The [facility], [facility] ShawComment on above:Performed By: #### CBC #### [facility] [address] [place] [address] Dr. Cian Ramseyrythrocyte distribution width (RBC) [Ratio]12.8 %Nznywi63.0-15.0 The [facility], [facility] ShawComment on above:Performed By: #### CBC #### [facility] [address] [place] [address] Dr. Cain McwilliamsHematocrit (Bld) [Volume fraction]41.6 %Ucqioo96.0-48.0The [facility] ShawComment on above:Performed By: #### CBC #### [facility] [address] [place] [address] Dr. Cain McwilliamsHemoglobin (Bld) [Mass/Vol]13.8 g/qWRobkve16.0-16.0The [facility] ShawComment on above:Performed By: #### CBC #### [facility] [address] [place] [address] Dr. Cain Lal #0.01 10e3/ulNormal0.00-0.03The [facility] ShawComment on above:Performed By: #### CBC #### [facility] [address] [place] [address] Dr. Cain Lal %0.2 %Normal0.0-0.5The [facility] ShawComment on above: Performed By: #### CBC #### [facility] [address] [place] [address] Dr. Cain Tafoya #1.3 103/ulNormal1.2-3.8The [facility] ShawComment on above:Performed By: #### CBC #### [facility] [address] [place] [address] Dr. Cain Justicehocytes/100 WBC (Bld)27.1 %Jyuxup06.5-60.0The [facility] ShawComment on above:Performed By: #### CBC #### [facility] [address] [place] [address] Dr. Cain Singer DIFF REQNONormalThe [facility] ShawComment on above: Performed By: #### CBC #### [facility] [address] [place] [address] Dr. Cain Knox (RBC) [Entitic mass]30.5 gdOmjvgs06.7-34.0The [facility] ShawComment on above:Performed By: #### CBC #### [facility] [address] [place] [address] Dr. Cain Knox (RBC) [Mass/Vol]33.2 g/yQJrdbig89.9-35.2The [facility] ShawComcorewell health ludington hospital on above:Performed By: #### CBC #### [facility] [address] [place] [address] Dr. Cain Knox (RBC) [Entitic vol]91.8 xAEdmktc20.0-99.0The [facility] ShawComment on above:Performed By: #### CBC #### [facility] [address] [place] [address] Dr. Cain Obrien #0.3 103/ulNormal0.3-0.8The [facility] ShawComment on above:Performed By: #### CBC #### [facility] [address] [place] [address] Dr. Cain Davisocytes/100 WBC (Bld)6.3 %Normal1.7-12.0The [facility] Comment on above:Performed By: #### CBC #### [facility] [address] [place] [address] Dr. Cain Topete #3.1 103/ulNormal1.4-6.5The [facility] ShawComment on above:Performed By: #### CBC #### [facility] [address] [place] [address] Dr. Cain Shenutrophils/100 WBC (Bld)65.2 %Cljffa88.0-75.0The [facility] ShawComment on above:Performed By: #### CBC #### [facility] [address] [place] [address] Dr. Cain Doranteslet mean volume (Bld) [Entitic vol]11.3 fLNormal9.5-13.5The [facility] ShawComment on above:Performed By: #### CBC #### [facility] [address] [place] [address] Dr. Cain McwilliamsPLT149 103/ulCritically slv645-453Bvf [facility] ShawComment on above:Performed By: #### CBC #### [facility] [address] [place] [address] Dr. Cain McwilliamsRBC4.53 106/ulNormal4.20-5.40The [facility] ShawComment on above:Performed By: #### CBC #### [facility] [address] [place] [address] Dr. Cain McwilliamsWBC4.8 103/ulNormal4.0-11.0The [facility] ShawComment on above: Performed By: #### CBC #### [facility] [address] [place] [address] Dr. Cain McwilliamsPREG QUANT HCGon 67-31-7157DPD QUANT<1NormalThe [facility] Comment on above:Performed By: #### CBC #### [facility] [address] [place] [address] Dr. Cain ChavezG RANGESEE BELOWFairfield Medical CenterComment on above: Result Comment: 5-50 0-1 WEEK 40-300 1-2 WEEKS 100-1,000 2-3 WEEKS 500-6,000 3-4 WEEKS 5,000-200,000 1-2 MONTHS 10,000-100,000 2-3 MONTHS 3,000-50,000 2ND TRIMESTER 1,000-50,000 3RD TRIMESTERPerformed By: #### CBC #### [facility] [address] [place] [address] Dr. Cain Mckeon ACOG PANEL 2: 30 to 64on 09-02-2021..NormalMercy HospitalComcorewell health ludington hospital on above:Result Comment: Performed at: WBPerformed By: #### CBC #### [facility] [address] [place] [address] Dr. Cain Reese Gdln ACOG Gdhwkif83-03HqjrjzIow[address] [place], [place] [address]Comment on above:Performed By: #### CBC #### [facility] [address] [place] [address] Dr. Cain McwilliamsDIAGNOSIS:CommentOhio Valley Hospital on above: Result Comment: NEGATIVE FOR INTRAEPITHELIAL LESION OR MALIGNANCY. THIS SPECIMEN WAS RESCREENED PART OF OUR AGRICULTURE MANAGER PROGRAM. Performed at: WBPerformed By: #### CBC #### [facility] [address] [place] [address] Dr. Cain McwilliamsHPChapis AptimaNegativeNormalNegativeThe [facility] on above:Result Comment: This nucleic acid amplification test detects fourteen high-risk HPV types (16,18,31,33,35,39,45,51,52,56,58,59,66,68) without differentiation. Performed at: =GPerformed By: #### CBC #### [facility] [address] [place] [address] Dr. Cain McwilliamsMethodology:CommentOhio Valley Hospital on above: Result Comment: This liquid based ThinPrep(R) pap test was screened with the use of an image guided system. Performed at: WBPerformed By: #### CBC #### [facility] [address] [place] [address] Dr. Cain McwilliamsNote:CommentOhio Valley [facility] on above:Result Comment: The Pap smear is a screening test designed to aid in the detection of premalignant and malignant conditions of the uterine cervix. It is not a diagnostic procedure and should not be used as the sole means of detecting cervical cancer. Both false-positive and false-negative reports do occur. . Performed at: WBPerformed By: #### CBC #### [facility] [address] [place] [address] Dr. Cain McwilliamsPerformed by:CommentOhio Valley Hospital on above: Result Comment: Sasha Odonnell, Supply Clerk (ASCP) Performed at: Performed By: #### CBC #### [place] [address] [address] Cain McwilliamsQC reviewed by:CommentOhio Valley Hospital on above:Result Comment: Shu Silver, Supervisory Supply Clerk (ASCP) Performed at: Performed By: #### CBC #### [facility] [address] [place] [address] Dr. Cain McwilliamsSpecimen adequacy:CommentOhio Valley Hospital on above:Result Comment: Satisfactory for evaluation. Endocervical and/or squamous metaplastic cells (endocervical component) are present. Performed at: Performed By: #### CBC #### [facility] [address] [place] [address] Dr. Cain McwilliamsUS PELVIS AND TRANSVAGon [id number] PELVIS AND TRANSVAG EXAMINATION: US PELVIS AND [...] Electronically authenticated by: MALICK ESPINOZA Date: 2021-08-30 10:29NoOhioHealth Doctors HospitalUS SINGLE QUAD RT UPPERon [id number] SINGLE QUAD RT UPPER EXAMINATION: US SINGLE [...] Electronically authenticated by: MALICK ESPINOZA Date: 2021-08-30 10:31NoMarietta [facility] W MANUAL DIFFon [id number] LYMPH #NormalThe [facility] ShawComment on above:Performed By: #### CBCMAN #### [facility] [address] [address] [address] Cain McwilliamsATYPICAL LYMPH %NormalThe [facility] ShawComcorewell health [facility] on above: Performed By: #### CBCMAN #### [facility] [address] [address] [address] Cain McwilliamsBAND #0.2 103/ulNormal0.0-0.3The [facility] Hospitalment on above:Performed By: #### CBCMAN #### [facility] [address] [address] [address] Cain Henderson %3 %Normal0-5The [facility]winville HospitalComment on above:Performed By: #### MARU #### [facility] [address] [address] [address] Cain Bai #0.00 103/ulNormal0.00-0.10The [facility] HospitalComment on above:Performed By: #### MARU #### [facility] [address] [address] [address] Cain Bai %0.0 %Critically low0.2-2.0The [facility]ville HospitalComment on above:Performed By: #### MARU #### [facility] [address] [place] [address] Dr. Cain Cuellar #NormalThe [facility]winville HospitalComment on above:Performed By: #### MARU #### [facility] [address] [place] [address] Dr. Cain Cuellar %NormalThe [facility]win[facility] HospitalComment on above:Performed By: #### MARU #### [facility] [address] [place] [address] Dr. Cain McwilliamsCORRECTED WBCNormal4.0-11.0The [facility] ShawComment on above: Performed By: #### MARU #### [facility] [address] [place] [address] Dr. Cain Gannon #0.00 103/ulNormal0.00-0.70The [facility] HospitalComment on above:Performed By: #### MARU #### [facility] [address] [place] [address] Dr. Cain Gannon%0.0 %Critically low0.9-7.0The [facility] HospitalComment on above:Performed By: #### MARU #### [facility] [address] [place] [address] Dr. Cain McwilliamsHCT44.2 %Gkadpc53.0-48.0The [facility]ville HospitalComment on above: Performed By: #### MARU #### [facility] [address] [address] [address] Cain McwilliamsHGB14.6 g/nxSrefaw12.0-16.0The [facility] ShawComment on above: Performed By: #### MARU #### [facility] [address] [address] [address] Cain Rust #0.34 103/ulCritically low1.20-3.80The [facility] Comment on above:Performed By: #### MARU #### [facility] [address] [address] [address] Cain Rust%5.0 %Critically low20.5-60.0The [facility] ShawComment on above:Performed By: #### MARU #### [facility] [address] [place] [address] Dr. Cain McwilliamsMCH30.0 ahJnyqwi02.7-34.0The [facility] ShawComment on above: Performed By: #### MARU #### [facility] [address] [address] [address] Cain McwilliamsMCHC33.0 g/leMwixib03.9-35.2The [facility] ShawComment on above:Performed By: #### MARU #### [facility] [address] [place] [address] Dr. Cain McwilliamsMCV90.9 cNCgfedn70.0-99.0The [facility] ShawComment on above: Performed By: #### MARU #### [facility] [address] [place] [address] Dr. Cain CooperOCYTE #NormalThe [facility] ShawComment on above: Performed By: #### MARU #### [facility] [address] [place] [address] Dr. Cain CooperOCYTE %NormalThe [facility] ShawComment on above: Performed By: #### MARU #### [facility] [address] [address] [address] Yilan ChangMONOM#0.21 103/ulCritically low0.30-0.80The [facility] Comment on above:Performed By: #### CBCISMAEL #### [facility] [address] [place] [address] Dr. Cain Colon%3.0 %Normal1.7-12.0The [facility] ShawComment on above: Performed By: #### CBCISMAEL #### [facility] [address] [place] [address] Dr. Cain HanksV11.3 fLNormal9.5-13.5The [facility] ShawComment on above: Performed By: #### CBCISMAEL #### [facility] [address] [place] [address] Dr. Cain Wagner #NormalThe [facility] ShawComment on above:Performed By: #### MARU #### [facility] [address] [place] [address] Dr. Cain HaleyOCYTE %NormalThe [facility] ShawComment on above:Performed By: #### CBCISMAEL #### [facility] [address] [place] [address] Dr. Cain McwilliamsNRBCNormalThe [facility] ShawComment on above:Performed By: #### CBCISMAEL #### [facility] [address] [place] [address] Dr. Cain McwilliamsPLT153 103/jfVxdlpz191-301Ggn [facility] ShawComment on above: Performed By: #### CBCISMAEL #### [facility] [address] [place] [address] Dr. Cain McwilliamsRBC4.86 106/ulNormal4.20-5.40The [facility] ShawComment on above:Performed By: #### CBCISMAEL #### [facility] [address] [place] [address] Dr. Cain McwilliamsRDW12.5 %Dnlula49.0-15.0The [facility] ShawComment on above: Performed By: #### CBCISMAEL #### [facility] [address] [place] [address] Dr. Cain Chinchilla #6.14 103/ulNormal1.40-6.50The [facility] ShawComment on above:Performed By: #### MARU #### [facility] [address] [place] [address] [address] [address] Cain Chinchilla %89.0 %Critically high43.0-75.0The [facility] ShawComment on above:Performed By: #### MARU #### [facility] [address] [place], [place] [address] Dr. Cain McwilliamsWBC6.9 103/ulNormal4.0-11.0The [facility] ShawComment on above: Performed By: #### MARU #### [facility] [address] [place] [address] Dr. Cain McwilliamsCT ABD/PELV W CONon [id number] ABD/PELV W CONEXAMINATION: CT ABD/PELV W CON [...] for better evaluation. Electronically authenticated by: ISHMAEL ESPINALARDEN Date: 2021-08-24 17:39NoOhioHealth Doctors HospitalCULTURE BLOODon 20-70-3748Tiobdnsaubl examination of blood, cultureCulture Observations: No growth at 5 days.NormalThe [facility] ShawComment on above:Performed By: #### CBC #### [facility] [address] [address] [address] Cain McwilliamsMicroscopic examination of blood, cultureCulture Observations: No growth at 5 daysNoOhioHealth Doctors HospitalComment on above:Performed By: #### CBC #### [facility] [address] [address] [address] Cain McwilliamsCovid-19 PCR ([facility])on 15-26-0038FFJH-CoV-2 (COVID-19) RNA DANIELLE+probe Ql (Unsp spec)Not detectedNormalNOT DETECTEDThe [facility] Comment on above:Result Comment: When diagnostic testing [...] for this test is supported by the [place] of [employer] and Human Service's declaration that [...] longer be used).Performed By: #### CVDTBH #### [facility] [address] [place] [address] Dr. Cain Jefferosn URINE PROFILEon 45-72-4051Aqelovopz Ql (U)NegativeNormal NEGATIVEMercy HospitalComment on above:Performed By: #### CBC #### [facility] [address] [place] [address] Dr. Cain McwilliamsClmadison (U)SL CLOUDYAbnormalCLEARThOhio State Harding HospitalComment on above:Performed By: #### CBC #### [facility] [address] [place] [address] Dr. Cain Abernathy (U)YELLOWNormalYELLOWMercy HospitalComment on above: Performed By: #### CBC #### [facility] [address] [place] [address] Dr. Cain Montenegro micrscopic examination will be performed if indicated. NormalThe [facility] ShawComment on above:Performed By: #### CBC #### [facility] [address] [place] [address] Dr. Cain McwilliamsGlucose Ql (U)NegativeNormalNEGATIVEFairfield Medical Centerment on above:Performed By: #### CBC #### [facility] [address] [place] [address] Dr. Cain McwilliamsHemoglobin Ql (U)NegativeNormalNEGATIVEBluffton Hospital on above:Performed By: #### CBC #### [facility] [address] [place] [address] Dr. Cain McwilliamsKetones Ql (U)NegativeNormalNEGATIVEMercy HospitalComment on above:Performed By: #### CBC #### [facility] [address] [place] [address] Dr. Cain McwilliamsLEUKOCYTESNegativeNormalNEGATIVEMercy HospitalComcorewell health ludington hospital on above:Performed By: #### CBC #### [facility] [address] [place] [address] Dr. Cain McwilliamsNitrite Ql (U)NegativeNormalNEGATIVEThe [facility] ShawComment on above:Performed By: #### CBC #### [facility] [address] [place] [address] Dr. Cain McwilliamspH (U)5.5 [pH]Normal5-9The [facility] ShawComment on above: Performed By: #### CBC #### [facility] [address] [place] [address] Dr. Cain McwilliamsSPEC GRAVITY1.608Gybmpi4.005-<=1.025The [facility] ShawComment on above:Performed By: #### CBC #### [facility] [address] [place] [address] Dr. Cain Ni PROTEINNegativeNormalNEGATIVE/ TRACEThe [facility] on above:Performed By: #### CBC #### [facility] [address] [place] [address] Dr. Cain Wright MICRO INDNOT INDICATEDNormalThe [facility] ShawComment on above:Performed By: #### CBC #### [facility] [address] [place] [address] Dr. Cain McwilliamsUrobilinogen Qn (U)0.2 {Clarie'U}/dLNormal0.2 - 1.0The [facility] ShawComment on above:Performed By: #### CBC #### [facility] [address] [place] [address] Dr. Cain McwilliamsLACTATE/LACTIC ACIDon 73-57-2701Kjfhzyu [Moles/Vol]2.1 mmol/L Critically high0.7-2.0The [facility] ShawComment on above:Performed By: #### LACT #### [facility] [address] [place] [address] Dr. Cain McwilliamsLIPASEon 30-14-3632Rrvpvc [Catalytic activity/Vol]102.0 U/LNormal 23.0-300.0The [facility] ShawComment on above:Performed By: #### CMP, LIPA #### [facility] [address] [place] [address] Dr. Cain Cui HCG QUALon 20-12-6471EJGKQLDKC, QUALNegativeNormalNEGATIVE The [facility] ShawComment on above:Performed By: #### CBC #### [facility] [address] [place] [address] Dr. Cain Orellana 14(COMP METB)on 74-91-1849Eepscbk [Mass/Vol]3.7 g/dLNormal 3.4-5.0The [facility] ShawComment on above:Performed By: #### CMP, LIPA #### [facility] [address] [place] [address] Dr. Cain McwilliamsAlbumin/Globulin [Mass ratio]1.1 {ratio}NormalThe [facility] ShawComment on above:Performed By: #### CMP, LIPA #### [facility] [address] [place] [address] Dr. Cain OlearyP [Catalytic activity/Vol]103 U/HMnkdvn37-258Qsu [facility] ShawComment on above:Performed By: #### CMP, LIPA #### [facility] [address] [place] [address] Dr. Cain Taylor [Catalytic activity/Vol]18 U/FUjkddq36-48Ewo [facility] ShawComment on above:Performed By: #### CMP, LIPA #### [facility] [address] [place] [address] Dr. Cain Bravo gap [Moles/Vol]15.3 mmol/LNormalThe [facility] Comment on above:Performed By: #### CMP, LIPA #### [facility] [address] [place] [address] Dr. Cain McwilliamsAST [Catalytic activity/Vol]13 U/LCritically ycl79-11Rlt [facility] on above:Performed By: #### CMP, LIPA #### [facility] [address] [place] [address] Dr. Cain McwilliamsBilirubin [Mass/Vol]0.7 mg/dLNormal0.2-1.3The [facility] Comment on above:Performed By: #### CMP, LIPA #### [facility] [address] [address] [address] Cain McwilliamsCalcium [Mass/Vol]8.3 mg/dLCritically low8.5-10.1The [facility] Hospitalment on above:Performed By: #### CMP, LIPA #### [facility] [address] [address] [address] Cain McwilliamsChloride [Moles/Vol]102 mmol/USldetu47-931Mpn [facility] Comment on above:Performed By: #### CMP, LIPA #### [facility] [address] [address] [address] Cain McwilliamsCO2 [Moles/Vol]22.2 mmol/YIgmvsy99.0-30.0The [facility] Comment on above:Performed By: #### CMP, LIPA #### [facility] [address] [place] [address] Dr. Cain McwilliamsCreatinine [Mass/Vol]0.93 mg/dLNormal0.52-1.04The [facility] ShawComment on above:Performed By: #### CMP, LIPA #### [facility] [address] [address] [address] Cain RamseyGFR-AF SRI LANKAN>60Normal>=60The [facility] ShawComment on above:Performed By: #### CMP, LIPA #### [facility] [address] [place] [address] Dr. Cain RamseyGFR-NON AF SRI LANKAN>60Normal>=60The [facility] ShawComment on above:Performed By: #### CMP, LIPA #### [facility] [address] [address] [address] Cain McwilliamsGlobulin (S) [Mass/Vol]3.5 g/dLNormalThe [facility] ShawComment on above:Performed By: #### CMP, LIPA #### [facility] [address] [address] [address] Cain McwilliamsGlucose [Mass/Vol]108 mg/dLCritically hggo42-272Rim [facility] ShawComment on above:Performed By: #### CMP, LIPA #### [facility] [address] [address] [address] Cain McwilliamsPotassium [Moles/Vol]3.5 mmol/LNormal3.4-5.0The [facility] Comment on above:Performed By: #### CMP, LIPA #### [facility] [address] [address] [address] Cain McwilliamsProtein [Mass/Vol]7.2 g/dLNormal6.1-8.2The [facility] Comment on above:Performed By: #### CMP, LIPA #### [facility] [address] [address] [address] Cain McwilliamsSodium [Moles/Vol]136 mmol/LCritically edh217-545Qcj [facility] ShawComment on above:Performed By: #### CMP, LIPA #### [facility] [address] [address] [address] Cain McwilliamsUrea nitrogen [Mass/Vol]11.0 mg/dLNormal7.0-18.0The [facility] ShawComment on above:Performed By: #### CMP, LIPA #### [facility] [address] [place] [address] Dr. Cain Molina nitrogen/Creatinine [Mass ratio]11.8 mg/mgNormalThe [facility] ShawComment on above:Performed By: #### CMP, LIPA #### [facility] [address] [place] [address] Dr. Cain McwilliamsAutomated basophil %on 54-59-0120Sbmlwuifc/100 WBC (Bld)0.4 % [facility] CtrAutomated basophil counton 94-24-2936Bvtstbrkz (Bld) [#/Vol]0.0 10*3/uL0.0-0.2FSelect Medical [facility] CtrAutomated blood lymphocyte count (number/volume)on 31-48-7796Ldxbbepanin (Bld) [#/Vol]0.8 10*3/uL1.00-4.8[facility] CtrAutomated blood lymphocyte count as percentage of total leukocyteson 97-68-8297Hctrjkwsped/100 WBC (Bld)21.0 % [facility] CtrAutomated blood monocyte counton 02-11-2019 Monocytes (Bld) [#/Vol]0.2 10*3/uL0.0-0.8[facility] CtrAutomated blood platelet count (count/volume)on 58-42-8432Ukvtmaqqi (Bld) [#/Vol]141 10*3/qV891-739DbonizzhbBethesda North Hospital CtrAutomated blood platelet mean volume measurementon 04-99-8258Nhvcmnju mean volume (Bld) [Entitic vol]9.4 fL6.3-10.7 [facility] CtrAutomated eosinophil %on 02-08-0342Supxvihqkun/100 WBC (Bld)1.1 %[facility] CtrAutomated eosinophil counton 03-91-3978Kvunufqlsfg (Bld) [#/Vol]0.0 10*3/uL0.0-0.45[facility] CtrAutomated erythrocyte distribution width ratioon 28-77-6818Msxqyfjaqaq distribution width (RBC) [Ratio]12.4 %11.9-15.3FSelect Medical [facility] Ctr Automated erythrocyte mean corpuscular hemoglobin (mass per erythrocyte)on 15-54-9160WTV (RBC) [Entitic mass]30.3 pg24.7-34.3FSelect Medical [facility] Ctr Automated erythrocyte mean corpuscular hemoglobin concentration measurement (mass/volon 11-56-8118NPIQ (RBC) [Mass/Vol]33.8 g/dL32.0-35.0[facility] CtrAutomated erythrocyte mean corpuscular volumeon 58-07-5124IAC (RBC) [Entitic vol]89.6 wJ03-160WigvtqplkBethesda North Hospital CtrAutomated erythrocytes count in urine sediment (number/area)on 79-40-8964REX Auto (Urine sed) [#/Area] 10-19 [HPF][facility] CtrAutomated leukocytes count in urine sediment (number/area)on 14-98-7631AWO Auto (Urine sed) [#/Area]3-4 [HPF] [facility] CtrAutomated monocyte %on 66-96-8689Hddgmiqwz/100 WBC (Bld)5.6 %[facility] [facility] CtrAutomated neutrophil %on 02-11-2019 Neutrophils/100 WBC (Bld)71.9 %[facility] CtrAutomated urine color determinationon 10-05-9853Zqszn (U)YellowYellowBethesda North Hospital CtrBlood erythrocytes automated count (number/volume)on 98-89-6304IOY (Bld) [#/Vol]4.66 10*6/uL3.60-5.00[facility] CtrBlood hemoglobin measurement (mass/volume)on 90-54-0821Pcjjtenptk (Bld) [Mass/Vol]14.1 g/dL 11.8-15.4FMercy Health Allen HospitalBlood leukocytes automated count (number/volume)on 00-91-5780LUV (Bld) [#/Vol]3.8 10*3/uL3.8-11.6FMercy Health Allen HospitalBlood neutrophil count by automated method (number/volume)on 02-37-9218Updytsrsjbw (Bld) [#/Vol]2.7 10*3/uL1.8-7.7FSelect Medical [facility] CtrEstimated glomerular filtration rate (GFR) non- Americanon 02-11-2019 GFR/1.73 sq M predicted among non-blacks MDRD (S/P/Bld) [Vol rate/Area] mL/min/{1.73_m2}[facility] CtrHematocrit [Volume Fraction] of Blood by Automated counton 48-83-5285Cyjefqnmye (Bld) [Volume fraction]41.7 % 34.0-46.4FSelect Medical [facility] CtrOtheron 06-18-4076CJS/1.73 sq M.predicted MDRD (S/P/Bld) [Vol rate/Area]mL/min/{1.73_m2}[facility] Comment on above:GFR estimated reference range: According to KDOQI guidelines, <60 ml/min/1.73m2 is sufficient todiagnose a patient with chronic kidney disease.Nucleated RBC/100 WBC (Bld) [Ratio]0.1 %0-0.5FSelect Medical [facility] Clinic [facility], [facility] CtrPharmacy Creatinine Clearance (Chem94.4154915543ThyrerocxBethesda North Hospital CtrSerum or plasma calcium measurement (mass/volume)on 50-55-6619Boreagb [Mass/Vol]9.5 mg/dL8.2-10.2FSelect Medical [facility] CtrSerum or plasma chloride measurement (moles/volume)on 43-63-9622Vrpjailm [Moles/Vol]107 mmol/L 95-114[facility] CtrSerum or plasma creatinine measurement with calculation of estimated glomerular filtron 06-32-1003Fagitfueta [Mass/Vol]0.86 mg/dL0.44-1.03[facility] CtrSerum or plasma glucose measurement (mass/volume)on 21-60-8423Zrovilb [Mass/Vol]103 mg/oA13-828KepqlphzeUniversity Hospitals Health SystemComment on above:ADA recommended reference rangeRandom Glucose Reference Range is dependent on time and content of last meal. Glucose of more than 200 mg/dL in a nonstressed, ambulatory subject supports the diagnosisof Diabetes Mellitus.Serum or plasma potassium measurement (moles/volume)on 31-80-6603Jvwhsidkp [Moles/Vol]3.9 mmol/L3.5-5.1FMercy Health Allen Hospital Serum or plasma sodium measurement (moles/volume)on 81-94-0298Zzwbty [Moles/Vol] 139 mmol/H221-723TtwgfxwghUniversity Hospitals Health SystemSerum or plasma total carbon dioxide measurement (moles/volume)on 66-96-6774ZR5 [Moles/Vol]24.6 mmol/L 22.0-30.0[facility] Health SystemSerum or plasma urea nitrogen measurement (mass/volume)on 10-34-5242Juhz nitrogen [Mass/Vol]8 mg/dL9-23[facility] Health SystemSpecific gravity of Urine by Automated test stripon 02-11-2019 Specific gravity (U) [Rel density]1.0211.001-1.030[facility] Squamous epithelial cells detection in urine sediment by light microscopyon 47-56-8433Wqkxwfbtpv cells.squamous LM Ql (Urine sed)5-9 [HPF][facility] CtrUrinalysison 43-96-3890Pkuwunc casts LM Ql (Urine sed)0-8 [LPF] [facility] Hospitals Health SystemUrine bacteria detection by automated methodon 13-57-5685Azlsmbhu Auto Ql (U)None seenNone SeenBethesda North Hospital Ctr Urine clarity by refractometry automatedon 10-18-3554Gfkzasg Refractometry automated (U)ClearClearFSelect Medical [facility] CtrUrine glucose measurement by automated test strip (mass/volume)on 32-51-1121Azvqvgb Auto test strip (U) [Mass/Vol]Normal mg/dLNoMercy Health Defiance HospitalUrine hemoglobin detection by automated test stripon 47-11-0571Unarblfvls Auto test strip Ql (U) 2+NegativeUniversity Hospitals Health SystemUrine human chorionic gonadotropin (hCG) detection by immunoassayon 95-83-7503OXZ ( test) Ql (U)Negative NegativeUniversity Hospitals Health SystemUrine ketones measurement by automated test strip (mass/volume)on 40-62-2008Uozuogr (U) [Mass/Vol]NegativeNegSelect Medical Specialty Hospital - CincinnatiUrine leukocyte esterase detection by automated test stripon 49-75-3186Egysffscm esterase Auto test strip Ql (U)NegativeNegative [facility] Hospit[facility] Health SystemUrine nitrite detection by test stripon 02-11-2019 Nitrite Ql (U)NegativeNegSelect Medical Cleveland Clinic Rehabilitation Hospital, Edwin ShawUrine pH measurement by automated test stripon 45-76-2340vQ (U)5.0 [pH]5.0-9.0[facility] Health SystemUrine protein measurement by automated test strip (mass/volume)on 87-60-1444Zofwafi (U) [Mass/Vol]NegativeNegSelect Medical [facility] Urine total bilirubin detection by test stripon 42-51-9571Hqetdopel Ql (U) NegativeNegSelect Medical Cleveland Clinic Rehabilitation Hospital, Edwin ShawUrine urobilinogen measurement by automated test strip (mass/volume)on 08-81-2324Rkymebhbpghv (U) [Mass/Vol]Normal mg/dLNoProMedica [facility] Ctr Vital Signs Date TimeVital SignValuePerforming WqtgynruoGpuwaeyd36-06-0658 10:32-0400Body mass index (BMI) [Ratio]34.95 kg/q6Ctnxm Quikly Work Phone: [facility] HospitalWtuhirtiji71-83-6239 10:32-0400Body .25 kgCorey Christian DO Work Phone: [facility] HospitalXzblgycdmn73-12-2801 10:32-0400Diastolic blood pplluvaj41 mm[Hg]Jaxson Christian DO Work Phone: 1([phone])548-[address] [place], [place] [address]Nczvmsgjvl27-96-9008 10:32-0400Systolic blood hiivquxj052 mm[Hg]Jaxson Christian DO Work Phone: [phone])659-[address] [place], [place] [address]Tovfpruiyk07-09-8616 09:34-0400Body mass index (BMI) [Ratio]34.95 kg/w7Dhgun Christian DO Work Phone: [phone])620-[address] [place], [place] [address]Unxvcffigm00-04-9494 09:34-0400Body mcgunx19.25 kgCorey Christian DO Work Phone: [phone] [place], [place] 8901710-20-2025 09:34-0400Diastolic blood imcrnycy64 mm[Hg]Jaxson Christian DO Work Phone: [phone])291-[address] [place], [place] [address]Feziixzoty86-33-8113 09:34-0400Systolic blood tbrytbcb671 mm[Hg]Jaxson Christian DO Work Phone: [phone] [place], [place] 8901709-20-2025 12:39-0400Body .1 cmG. Raymundo Prieto DO Work Phone: [phone] [place], [place] 1755509-20-2025 12:39-0400 Body mass index (BMI) [Ratio]34.4 kg/m2G. Raymundo Prieto DO Work Phone: 1([phone])417-[address] [place], [place] 1755509-20-2025 12:39-0400 Body mdfgoqffwoz42.6 [degF]Gabino Prieto DO Work Phone: 1([phone])389-[address] [place], [place] 1755509-20-2025 12:39-0400 Body rzymlj71.89 kgG. Raymundo Prieto DO Work Phone: 1([phone])792-[address] [place], [place] 1755509-20-2025 12:39-0400 Diastolic blood zvsxapze49 mm[Hg]Gabino Barnardmarito DO Work Phone: 1(460)077-[address] [place], [place] 1755509-20-2025 12:39-0400 Heart rate77 /Shay. Raymundo Ramachandranshan DO Work Phone: 1(419)625-[address] [place], [place] 1755509-20-2025 12:39-0400 Respiratory rate18 /ShaySantana Prieto DO Work Phone: [phone] [place], [place] 6338309-20-2025 12:39-0400 SaO2% (BldA) [Mass fraction]99 %Gabino Prieto DO Work Phone: [phone]09-20-2025 12:39-0400 Systolic blood hjfzubrh414 mm[Hg]Gabino Prieto DO Work Phone: [phone] [place], [place] 6338308-07-2025 13:46-0400 Body kduqrqfxvlt22.29 [degF]Genaro Cartagena DMD Work Phone: [phone])[address] [place], [place] 6140108-07-2025 13:46-0400Diastolic blood hwfjsens21 mm[Hg]Genaro Cartagena DMD Work Phone: [phone] [place], [place] 6140108-07-2025 13:46-0400Heart rate71 /minKunal Mitzi DMD Work Phone: [phone] [place], [place] 6140108-07-2025 13:46-0400Systolic blood uaqltmks111 mm[Hg]Genaro Cartagena DMD Work Phone: [phone] [place], [place] 6140104-21-2025 10:23-0400Body eisxwu143.1 cmEllen Warren SHIPPING AGENT Work Phone: [phone])697-[address] [place], [place] [address]Evatvhpmih81-39-6162 10:23-0400Body mass index (BMI) [Ratio]34.45 kg/r3EcxwaEllen Warren SHIPPING AGENT Work Phone: [facility] HospitalJngpaaexot08-55-4848 10:23-0400Body temperature 97.11 [degF]Ellen Warren SHIPPING AGENT Work Phone: 1(494)246-[address] [place], [place] [address]Gtdnblegbj91-96-3837 10:23-0400Body yklmqq07.89 kgEllen Warren SHIPPING AGENT Work Phone: noHarry [facility]. [facility]' HospitalHnvjastidb37-56-9284 10:23-0400Diastolic blood dwbcgoxv63 mm[Hg]Ellen Warren SHIPPING AGENT Work Phone: noHarry [facility]. [facility]' HospitalLojgpuzlcn54-13-1327 10:23-0400Heart rate90 /min Ellen Dewittelise SHIPPING AGENT Work Phone: NOHarry S. [facility]' HospitalOoldqymklp66-81-8481 10:23-8147KkP7% (BldA) [Mass fraction]98 %Ellen Kelvin SHIPPING AGENT Work Phone: noHarry [facility]. [facility]' HospitalNrfpwrrfzu12-58-2746 10:23-0400Systolic blood gichcbni830 mm[Hg]Ellen Kelvin SHIPPING AGENT Work Phone: NOHarry [facility]. [facility]' HospitalAnqxuwmyak61-93-1240 11:19-0400Body iwzymk128.1 Eusebio Lamar PA Work Phone: NOHarry [facility]. [facility]' HospitalBslavrcihl31-31-7836 11:19-0400Body mass index (BMI) [Ratio]34.28 kg/m2Corrine Lamar PA Work Phone: noHarry [facility]. [facility]' HospitalKhzvghacxw45-23-2274 11:19-0400Body temperature 97.39 [degF]Corrine Lamar PA Work Phone: noHarry [facility]. [facility]' HospitalNstpgfkzye92-17-8023 11:19-0400Body ekngbt74.44 kgRymarito Lamar PA Work Phone: NOHarry [facility]. [facility]' HospitalPucxwnqvyw61-60-9281 11:19-0400Diastolic blood mm[Hg]Corrine Lamar PA Work Phone: NOHarry [facility]. [facility]' HospitalRkujldlzpu29-46-6565 11:19-0400Heart rate87 /min Corrine Lamar PA Work Phone: NOHarry [facility]. [facility]' HospitalOpoxhauxlm29-69-8327 11:19-6641UeB2% (BldA) [Mass fraction]99 %Corrine Lamar PA Work Phone: NOHarry [facility]. [facility]' HospitalLysufzkwls16-10-0020 11:19-0400Systolic blood alinzrzr399 mm[Hg]Corrine Lamar PA Work Phone: NOHarry [facility]. [facility]' HospitalBtqohjzxvx29-97-3208 11:35-0400Body mass index (BMI) [Ratio]34.61 kg/z0Aukws Christian DO Work Phone: NOHarry [facility]. [facility]' HospitalHfbucyjwlf76-12-2933 11:35-0400Body .35 kgCorey Christian DO Work Phone: NOHarry [facility]. [facility]' HospitalZqqyasjaad37-07-0612 11:35-0400Diastolic blood edqfwrxu22 mm[Hg]Jaxson Baileyo DO Work Phone: NOHarry [facility]. [facility]' HospitalXdjupftdaw12-11-1825 11:35-0400Systolic blood rpsyhyks255 mm[Hg]Jaxson Baileyo DO Work Phone: NOHarry [facility]. [facility]' HospitalZthgaricbf12-32-9334 14:37-0500Body healqm760.1 cmRtripp Lamar PA Work Phone: noHarry [facility]. [facility]' HospitalOnftllhgtd67-82-1052 14:37-0500Body mass index (BMI) [Ratio]34.95 kg/m2Corrine Lamar PA Work Phone: noHarry [facility]. [facility]' HospitalPlezzeyrxq32-78-4895 14:37-0500Body temperature 97.39 [degF]Corrine Lamar PA Work Phone: noHarry [facility]. [facility]' HospitalOmzhnrlien92-41-4129 14:37-0500Body .25 kgCorrine Lamar PA Work Phone: noHarry [facility]. [facility]' HospitalNlggsrmecm56-83-4978 14:37-0500Diastolic blood wajczsdt84 mm[Hg]Corrine Lamar PA Work Phone: noHarry [facility]. [facility]' HospitalDykqpfctzf15-19-0008 14:37-0500Heart rate87 /min Corrine Lamar PA Work Phone: noHarry [facility]. [facility]' HospitalApsmihdige53-70-5621 14:37-0693BmN5% (BldA) [Mass fraction]98 %Corrine Lamar PA Work Phone: noHarry [facility]. [facility]' HospitalVrqckqmkxp56-17-4977 14:37-0500Systolic blood mm[Hg]Corrine Lamar PA Work Phone: [facility] HospitalDflnjwacgc81-54-8121 18:37-0400Body sxujtz799.1 cmAd[facility]09-11-2024 18:37-0400Body mass index (BMI) [Ratio]38.2 kg/x5DwsovqlneAdams County Regional Medical Center09-11-2024 18:37-0400Body zuflhbivcoa19.7 [degF][facility]09-11-2024 18:37-0400Body rvincl078.32 kgAdams County Regional [facility] Center09-11-2024 18:37-0400Diastolic blood mm[Hg][facility]09-11-2024 18:37-0400 Heart rate85 /[facility]09-11-2024 18:37-0400 Respiratory rate18 /[facility]09-11-2024 18:37-0400 SaO2% (BldA) [Mass fraction]98 %[facility]09-11-2024 18:37-0400Systolic blood kcdvnzsi358 mm[Hg][facility] 01-12-2024 15:45-0400Body zodwidsxeqh62.01 [degF]Summer Workman PA Work Phone: [facility] HospitalTxdbpdmqus39-01-7145 15:45-0400Diastolic blood luunsxoo20 mm[Hg]Summer Workman PA Work Phone: [facility] HospitalXhcuzddkkt21-51-7902 15:45-0400Heart rate80 /min Summer Workman PA Work Phone: [facility] HospitalNvjcputknf05-19-2855 15:45-4279ElJ5% (BldA) [Mass fraction]99 %Equigerminal Workman PA Work Phone: [facility] HospitalJhiaoydtom01-45-3587 15:45-0400Systolic blood feklwxee512 mm[Hg]CreditShopman PA Work Phone: [facility] HospitalOebkrhyfdq70-06-5090 13:45-0400BP Agddncvcl62 mm[Hg][facility]09-21-2019 13:45-0400BP Vehjexoo955 mm[Hg][facility]09-21-2019 13:45-0400Pulse (Heart Rate)74 /[facility]ayMer[facility]09-21-2019 13:45-0400Pulse Fkbtyphu073 %[facility]09-21-2019 13:45-0400 Respiratory Rate19 /[facility]ayMer[facility]09-21-2019 11:03-0400BMI (Body Mass Index)25.7 kg/m2[facility] 02-11-2019 11:Body Tcmxixedppu34.7 [degF][facility] Tfg73-19-6178 11:-040Body coqdmi49.3 kgG. [facility] Vqq16-80-4247 11:4647Eujhbc880.1 cmG. [facility] Encounters Encounter DateEncounter TypeCare ProviderFacilityStart: 03-13-2025 End: 40-54-1039Cbhlne flowsheetCorey Christian DO Work Phone: [facility] [place] [facility]BGYNStart: 03-13-2025 End: 89-11-5003Adctde flowsheetCorey Christian DO Work Phone: [facility] [place] [facility]BGYNStart: 03-13-2025 End: 12-68-6495Ahyeoj outpatient visit 15 minutesCorey Christian DO Work Phone: noms [place] OBGYNComment on above:LGSIL of cervix of undetermined significance; Menorrhagia with regular cycle; Dyspareunia in female; Pelvic pain; History of endometrial ablationStart: 03-13-2025 End: 84-64-0566indbgrlosdNWOHX FAZIONot AvailableStart: 03-12-2025 End: 99-15-1684ouwhcncexaISantana Jay Evonmarito DO Work Phone: -[facility] [place] HospStart: 03-12-2025 End: 56-93-9831Ezuakjoc ReferredCorey Christian-LAB Path Spec [place] HospStart: 03-12-2025 End: 13-78-8501Zemjblq encounter procedureCorey Quikly Work Phone: [facility] [place] OBGYNComment on above:Pre-op examination; Menorrhagia with regular cycle; Pelvic pain in female; Dysmenorrhea; Dyspareunia, female; HGSIL (high grade squamous intraepithelial lesion) on Pap smear of cervixStart: 03-12-2025 End: 34-01-6201Hdznkvmwpjviu examination doneCorey Christian DO Work Phone: NOWQ HealthcareStart: 03-12-2025 End: 91-37-2980bxqlipzpxsOEDLT FAZIONot AvailableStart: 03-02-2025 End: 13-74-2334rsklmwwtxcH. Raymundo Prieto DO Work Phone: [facility] Work Phone: Start: 03-02-2025 End: 99-44-5384Lybheug encounter procedureAdeel Eckert DO-Flu VaccineStart: 02-10-2025 End: 96-29-8172wzpdaxaxivP. Raymundo Prieto DO Work Phone: [facility] Work Phone: Start: 02-10-2025 End: 27-12-9209Krqngzf encounter procedureTania Whitehead APRN-[facility] Work Phone: Start: 12-28-2024 End: 53-69-5919Inytaemsb identifierEllsworth County Medical Center Work Phone: Dental ClinicStart: 24-30-7928hqrptwupkjRahlgAurora Medical Center [facility] DEPARTMENTStart: 09-26-2024 End: 36-81-3130Lvfglk flowsheetMorgan Vitaliy-Beran DPM Work Phone: noms [facility] PODIATRYStart: 09-26-2024 End: 41-73-6702Pgkrhq flowsheetMorgan Vitaliy-Beran DPM Work Phone: noms [facility] PODIATRYStart: 09-26-2024 End: 09-07-8652Fpuhzz outpatient new 30 minutesMorgan Vitaliy-Beran DPM Work Phone: noms SWS PODIATRYComment on above:Ingrown toenail (Primary Dx); Right foot painStart: 09-26-2024 End: 46-16-6035iykuuwkvqwFKIBYN VITALIY-BERANNot AvailableStart: 09-11-2024 End: 03-35-3652Fsszsa flowsLorena Warren SHIPPING AGENT Work Phone: [facility] FM 230Start: 09-11-2024 End: 17-27-6762Jqkgjq flowsLorena Warren SHIPPING AGENT Work Phone: [phone] FM 230Start: 09-11-2024 End: 65-35-7554Nmuqgr outpatient visit 15 minutesShahidkain Warren SHIPPING AGENT Work Phone: [phone] S[facility] FM 230Comment on above:Viral URI (Primary Dx); Cough, unspecified typeStart: 09-11-2024 End: 97-09-0681clkbexdcjnZRZLK L LUBYNot AvailableStart: 09-09-2024 End: 52-94-3221Xxfujzyks Result EncounterGeneric External Data ProviderNOMS External Department UnsolicitedStart: 09-09-2024 End: 86-09-7326Oqmoqvltb Result EncounterGeneric External Data ProviderNOMS External Department UnsolicitedStart: 09-05-2024 End: 34-56-5314Retouddk ReferredG. Raymundo Prieto DO Work Phone: [facility] Spec [place] HospStart: 09-05-2024 End: 44-00-6655ovxlfvxpkgY. Raymundo Prieto DO Work Phone: [facility] Work Phone: Start: 08-22-2024 End: 86-38-3337Yiuern Miguel MOSELEY Work Phone: [facility] FM 230Start: 08-22-2024 End: 40-50-8810Odsdxa Miguel MOSELEY Work Phone: [phone] S[facility] FM 230Start: 08-22-2024 End: 92-03-2158Lhtpcey encounter Neeru MOSELEY Work Phone: [facility] Work Phone: Start: 08-22-2024 End: 89-58-9860Thqnvkng preventive med est patient 18-39 yrsCorrine MOSELEY Work Phone: noms SWS FM 230Comment on above:Annual wellness visit (Primary Dx)Start: 08-22-2024 End: 70-67-1072oubuujqqqpYFEV M MYERSNot AvailableStart: 08-18-2024 End: 81-00-2477Snawxl OnlyCorrine MOSELEY Work Phone: n[facility] SWS FM 230Comment on above:Paronychia of toe, unspecified laterality (Primary Dx)Start: 08-15-2024 End: 87-33-0682Kaxodowci Result EncounterGeneric External Data ProviderNOMS External Department UnsolicitedStart: 08-15-2024 End: 97-27-1592Ljbumvemw Result EncounterGeneric External Data ProviderNOMS External Department UnsolicitedStart: 08-15-2024 End: 32-30-5527Kntrusc encounter procedureCorey Christian DO Work Phone: noms HealthcareStart: 08-15-2024 End: 15-71-5856Cpwphnbj preventive med est patient 18-39 yrsCorey Christian DO Work Phone: noms BCP OBComment on above:Well woman exam with routine gynecological exam; Menorrhagia with regular cycle; History of endometrial ablationStart: 08-15-2024 End: 46-53-7755fhhlubxnbxYTWHE FAZIONot AvailableStart: 08-14-2024 End: 00-50-3173Wopxisfr ReferredG. Raymundo Prieto DO Work Phone: [facility] [address] Work Phone: start: 08-14-2024 End: 02-93-9526aqqtozpfkcD. Raymundo Prieto DO Work Phone: [facility] Work Phone: Start: 05-22-2024 End: 29-49-6472ijhbmnifkmCBTL M MYERSNot AvailableStart: 05-22-2024 End: 53-36-7838Yykltj outpatient visit 15 minutesCorrine MOSELEY Work Phone: NOUE S[facility] FM 230Comment on above:Paronychia of great toe of right foot (Primary Dx); Toenail fungusStart: 05-22-2024 End: 35-04-7922Ugygoo Miguel MOSELEY Work Phone: NOND SWS FM 230Start: 05-22-2024 End: 39-80-5908Cznqzl Miguel MOSELEY Work Phone: [facility] S[facility] FM 230Start: 02-02-2024 End: 10-37-2306cpwnvkgmajRgekgtagm [facility] Work Phone: Start: 02-02-2024 End: 35-59-0967Zjrrown encounter procedureE[facility] Work Phone: Start: 01-12-2024 End: 50-20-2478Qradao outpatient visit 15 minutesSukaren Canada PA Work Phone: noms SWS UCComment on above:Viral syndrome (Primary Dx)Start: 06-22-2022 End: 91-42-2662xaevsvmfzoJY JAXSON FAZIOFacility:Z4Zinpu: 10-09-2021 End: 28-34-1709dfhmonffnvHS JAXSON FAZIOFacility:Q9Urbqa: 03-23-5527Bweycdrxz for other preprocedural examinationDR JAXSON FANAZARIOCleveland Clinic Children's Hospital for Rehabilitationtart: 28-72-7705acstfhucczKM JAXSON FAZIOFacility:I4Wleir: 10-01-2021 End: 68-88-7205nsyutzzxegOE JAXSON FAZIOFacility:G8Bjwlz: 10-01-2021 End: 36-12-0015Ihqjemzkt for other preprocedural examinationDR JAXSON CHRISTIAN Facility:B4Xzhpf: 08-30-2021 End: 74-44-6530cqoanmrbqrKITZS LUBYFacility:N3Fpmtd: 08-25-2021 End: 30-78-9345jtzhctiitsMK JAXSON FAZIOFacility:V9Llxaq: 08-24-2021 End: 25-85-4707ijuvzslprxQK SOFIA SCHWARTZFacility:G2Itfev: 02-11-2019 End: 45-37-9461Vofbufzqj department patient visitGSantana Prieto-Emergency RoomStart: 04-06-2018 End: 52-62-8447Wgrndao encounter procedureGSantana Prieto-Ultrasound Cntr for Breast Car Procedures DateProcedureProcedure DetailPerforming ClinicianStart: 96-04-6202Ctivx test visual color cmprsn methsCorey Christian DO Work Phone: Start: 41-92-9142Xebmo cultureGSantana Prieto DO Work Phone: Start: 12-28-2024 End: 72-69-9378wtybam risk assessment and documentation, with a finding of high riskKconsuelo Cartagena DMD Work Phone: Start: 12-28-2024 End: 43-01-1563Udlvfyatyywha of current medicationsKconsuelo Cartagena DMD Work Phone: Start: 12-28-2024 End: 28-19-7412acvvmweztzv counseling for control of dental diseaseGenaro Cartagena DMD Work Phone: Start: 12-28-2024 End: 39-83-1686zpew hygiene instructionsKconsuelo Cartagena DMD Work Phone: Start: 12-28-2024 End: 65-37-8082laycbcsbgow scaling and root planing - one to three teeth per quadrantKconsuelo Cartagena DMDStart: 12-28-2024 End: 36-32-5962tbwmrsy application of fluoride varnishKconsuelo Cartagena DMDStart: 07-92-1956MNABRU COVID-19/Glenn Warren SHIPPING AGENT Work Phone: Start: 20-66-9918WSZQR RESPIRATORY CULTUREGeneric External Data ProviderStart: 11-24-4802Mkijd test visual color cmprsn methsCorey Christian DO Work Phone: Start: 95-47-5854KFC,APTIMA HPV,AGE GDLNCorey Christian DO Work Phone: Start: 84-76-0238Yyxzvleteon observation [Identifier] in Cervix by Cyto Kailyn Warren NP Work Phone: Start: 14-79-7299Hwnym Strep (POC)Start: 65-81-7737TI abdomen pelvis wo Eugene. Madieftan Plan of Treatment DateCare ActivityDetailAuthorStart: 75-06-1696Yqqvtafsv for malignant neoplasm of cervixNOCA HealthcareStart: 12-49-3508NdvpzifLongs Peak Hospital Work Phone: Start: 03-13-2025 End: 95-50-0179Ouotnag encounter procedureNOMS [facility] OBComment on above:Arrived Start: 03-12-2025 End: 00-01-8881Yutiwgr encounter issdquivd99/20/2025 9:30 AM EDT Procedure Visit [facility] [address] [place] [id number] Jaxson Gonzales, DO [address] [place] [address] [facility] BCP OBStart: 51-18-1874JjkweeyEating Recovery Center a [facility] Work Phone: Start: 45-47-4225VwigEating Recovery Center Behavioral Health Work Phone: Start: 10-10-2024 End: 22-05-3817Idkjadk encounter azrzdhhza50/20/2025 9:30 AM EDT Office Visit [facility] [address] [place] [address] Madi Alvares DPM [address] [place] [address] [facility] SWS PODIATRYStart: 09-26-2024 End: 88-06-6221Afnrpmm encounter ehsdtbohb73/06/2025 9:30 AM EDT Office Visit [facility] [address] [place] [id number] Madi Alvares, DPM [address] [place] [address] ArrivedNOMS [facility] PODIATRYComment on above: ArrivedStart: 09-11-2024 End: 69-86-7643Arjampc encounter twqsjujuy01/21/2025 10:20 AM EDT Office Visit [facility] [address] [place] [id number] Ellen Warren, LUBA [address] [place] [address] [facility] FM 230Comment on above:ArrivedStart: 08-22-2024 End: 88-71-2082Kuimqkr encounter qlwkfpoib42/01/2025 11:20 AM EDT Office Visit [facility] [address] [place] [id number] Corrine Lamar, PA [address] [place] [address] [facility] FM 230Comment on above:ArrivedStart: 08-03-2024 End: 35-88-3008Dmsksia encounter ajuijknvx41/13/2025 8:30 AM EDT Office Visit [facility] [address] [place] [address] Jaxson Gonzales, DO [address] [place] [address] [facility]CP OBStart: 43-42-3387Eprsbmlyi for malignant neoplasm of cervixNOMS HealthcareStart: 10-83-0062Fudjtecdc vaccinationInfluenza Vaccine (#1)[facility] HealthcareStart: 43-07-0321Syeetfrci for malignant neoplasm of cervixPap SmearNOMS HealthcareCytology Cervical or vaginal smear or scraping studyPap Smear Pathology and Cytology Routine Well woman exam with routine gynecological exam Ordered: 08/15/2024[facility] Work Phone: comchki on above:Ordered: 08/15/2024ytology Cervical or vaginal smear or scraping studyPap Smear Pathology and Cytology Routine LGSIL of cervix of undetermined significance Ordered: 03/13/2025[facility] Work Phone: comjwqt on above:Ordered: 03/13/2025Human papilloma virus DNA [Presence] in Unspecified specimen by Probe with amplificationHPV DNA probe, amplified Microbiology Routine Well woman exam with routine gynecological exam Ordered: 08/15/2024[facility] HealthcareComment on above:Ordered: 08/15/2024 Human papilloma virus DNA [Presence] in Unspecified specimen by Probe with amplificationHPV DNA probe, amplified Microbiology Routine LGSIL of cervix of undetermined significance Ordered:03/13/2025[facility] HealthcareComment on above: Ordered: 03/13/2025Patient EducationKidney Stones (ED) How to Strain Your Urine (ED)[facility]trPatient referralBet[facility] Ctr Tissue examTissue exam Pathology and Cytology Routine Pre-op examination Menorrhagia with regular cycle Pelvicpain in female Dysmenorrhea Dyspareunia, female HGSIL (high grade squamous intraepithelial lesion) on Pap smear of cervix Ordered: 03/12/2025[facility] Work Phone: combfmp on above:Ordered: 03/12/2025Urine culture [facility] Immunizations Immunization DateImmunizationNotesCare SwzqnvqqHasurizj01-21-9575nktitqvmq, seasonal, injectable, preservative freeCorrine MOSELEY Work Phone: noHarry [facility] HospitalUwnqhosjkp15-60-5977pdzbvks toxoid, reduced diphtheria toxoid, and acellular pertussis vaccine, adsorbedSummer Dread MOSELEY Work Phone: NOHarry [facility]. [facility]' HospitalBcrpjggrql54-13-0212kyeefkbyxiufw polysaccharide (groups A, C, Y and W-135) diphtheria toxoid conjugate vaccine (MCV4P)Corrine MOSELEY Work Phone: [employer] Yksntuinlb00-48-0309durdynslpr, tetanus toxoids and pertussis vaccineCorrine MOSELEY Work Phone: [phone] [place], [place] [address]Pgjxhtsmfr12-82-3760eyrzqle, mumps and rubella virus vaccineCorrine Lamar PA Work Phone: [phone] [place], [place] [address]Kijdvygszw72-27-6634xdflwlatzi vaccine, inactivatedCorrine Lamar PA Work Phone: [phone] [place], [place] [address]Jzoevanzyj48-68-6310ijmvmhazgrq influenzae type b vaccine, PRP-T conjugateCorrine Lamar PA Work Phone: [phone] [place], [place] [address]Rzyswkwinq63-09-7729udpvrwj, mumps and rubella virus vaccineCorrine Lamar PA Work Phone: [phone] [place], [place] [address]Cfkkwnkzhg57-28-7193lyzxbdkpka, tetanus toxoids and pertussis vaccineCorrine Lamar PA Work Phone: [phone] [place], [place] [address]Hfkhqyjiuc26-52-8829amcdlgqhgbu influenzae type b vaccine, PRP-T conjugateCorrine Lamar PA Work Phone: [phone] [place], [place] [address]Utsqdiptgp69-79-1750kywlxtglpy, tetanus toxoids and pertussis vaccineCorrine Lamar PA Work Phone: [phone] [place], [place] [address]Ulstsffyhv81-51-3860vlfcxkqavb vaccine, inactivatedCorrine Lamar PA Work Phone: [phone])[facility] [place], [place] [address]Lqadixkfbf44-81-8389puscpuzgjn, tetanus toxoids and pertussis vaccineCorrine Lamar PA Work Phone: [phone])[facility] [place], [place] [address]Qobimrtfnz26-75-3133odufgzfnpn vaccine, inactivatedCorrine Lamar PA Work Phone: [phone] [place] [address] Payers DatePayer CategoryPayerPolicy [id number] 2023Medicaid [id number] [id number] 07.09.840.1.151009.3.57[id number] 840.1.334362.3.57[id number] 2.16.840.1.758049.3.57[id number] 2.16.840.1.790785.3.579.2.52215-40-2301Lgrmixf7298632 2.16.840.1.907807.3.579.2.48544-42-3520Bkggzud0836801 2.16.840.1.528930.3.579.2.94832-59-0351Csncbcz2663551 2.16.840.1.657199.3.579.2.47615-93-3288Djrubyf1180590 2.16840.1.110380.3.57[id number] 2.0.1.866985.3.57[id number] 2.16840.1.839539.3.579.[id number] 2.0.1.008316.3.579.2.233760-39-8483Skfozic3372202 2.0.1.556945.3.579.2.644378-41-6861Vxiksyw3072869 2.0.1.372327.3.579.2.141060-95-0598Pjsjxci2441321 2.160.1.626734.3.579.2.742323-68-8140Qpnkuww4400412 2.0.1.938037.3.579.2.135855-26-5578Vrewhrw7843477 2.840.1.364223.3.579.2.033109-33-4167Pnxqmzq1745741 2.16840.1.490999.3.579.2.[id number] p380j57t-o5z7-28y1-6841-v7241[id number] Pay [id number] [id number]96z5j5RsvrtrwTMI071Q01287 2163162y-4af3-1253-y2d9-95d6w517p894RzlawooTezvhnxlc No [id number] 7ut0q762-2h83-9l95-[id number] 2.16.840.1.298743.3.579.2.705Ypupocj34750034 2.16.840.1.827502.3.579.2.531 [id number] 2.16.840.1.898208.3.579.2.913Rbxtcal14248510 2.16.840.1.830596.3.579.2.334Tdtcpwk89202695 2..840.1.474215.3.579.2.531 [id number] 2.16.840.1.233111.3.579.2.531 Social History DateTypeDetailFacilityStart: 85-80-5781Kbfnobx smoking status NHISNever smoked tobacco (finding)[facility] CtrStart: 05-43-8514Rhx Assigned At BirthFeLicking Memorial Hospitaltart: 12-23-2022 End: 40-26-1392Fopzbbp smoking status NHISEx-smoker (finding)[facility] CenterHistory of tobacco useCurrent smokerNOMS HealthcareHistory of tobacco useCigarette SmokerNOMS HealthcareStart: 77-43-4432Ffqrixo use and exposureSmokeless tobacco non-userNOMS HealthcareStart: 01-12-2024 End: 73-60-6489Hdivpgcoj beverage intakeLifetime non-drinker (finding)[facility] HealthcareStart: 12-23-2022 End: 02-64-5154Vnmxfyk of Social functionNOCA HealthcareStart: 12-23-2022 End: 62-26-4615Quyjqxh use panelNOCA HealthcareStart: 90-96-5605Meyyvfe Comment Caffeine: > 4 cups/day sodaNOMS HealthcareStart: 91-25-2299Vqf assigned at Not on fileNOMS HealthcareStart: 08-15-2024 End: 84-88-0990FlcEqhqaj (finding)[facility] Hospitaltart: 21-02-0745Jdexmzx intakeAlcohol Use DetailsEating Recovery Center [facility] Sexual OrientationStraight or heterosexualEating Recovery Center [facility] Work Phone: Start: 10-44-8020Hxwcnm identityMisericordia Hospitaltart: 09-28-3710AuyDawxonLFQH HealthcareNEGATED: Highlighted rowStart: 74-03-2094Pnsbisd smoking status NHISUnknown if ever smokedEating Recovery Center Behavioral HealthNEGATED: Highlighted rowStart: 09-49-0317Snrnpdm of tobacco useCurrent non-smokerEating Recovery Center Behavioral Health Goals DatePatient GoalDesired Activity/State Functional Status RphmQprhiupvmvDulbapSstvqbdj23-17-1944Eheixcw Health Questionnaire 2 item (PHQ- 2) [Reported][facility] Clinical Notes 10-09-2021 to 03-13-2025 Note Date & OihyDwmxFmeyjrgg11-45-4005 History of Present illness Narrative* Karla Payne, PK - 03/13/2025 10:40 AM EDT Reason for [...] (BMI 30-39.9) Pelvic pain 2007 Pre-op exam ([facility]) 2009 ([facility]) 2009 Umbilical hernia Varicella zoster Well woman [...] (BMI 30-39.9) Pelvic pain 2007 Pre-op exam ([facility]) 2010 ([facility]) 2009 Umbilical hernia age 3 Varicella zoster [...] SMEAR Abnormal- 02/03/15-LGSIL, 02/2015- ELISABET I; Colpo 2008- mild dysplasia PELVIC LAPAROSCOPY 2007 pelvic pain PELVIC LAPAROSCOPY 2017 [place] COLPOSCOPY,ENTIRE [...] nursing note reviewed. Exam conducted with a hairmasters manager present. Vitals: Estimated body mass index is 34.95 kg/m as calculated from the following: Height [...] of: Jaxson Gonzales DO documented in this encounterCenterPointe HospitalCrugvzsmev78-30-3721 History of Present illness Narrative* Keily Lew - 03/12/2025 9:30 AM EDT Reason for Appointment: Patient ID: Farzaneh Marvin is a 34 y.o. female who presents for Pre-op Visit and Endometrial Biopsy Patient presents today for Pre Op/Endometrial Biopsy appointment. Patient is scheduled to undergo Da Saadia assisted Laparoscopic Hysterectomy, possible exploratory laparotomy, possible BSO, possible cystoscopy on 04/11/[address] Gonzales at [facility]. MEDICATIONS No current outpatient medications ALLERGIES Allergies [...] Pelvic pain 2007 [facility]-op exam ([facility]) 2010 ([facility] 2009 Umbilical hernia Varicella zoster Well woman [...] (BMI 30-39.9) Pelvic pain 2007 Pre-op exam ([facility]) 2010 ([facility]) 2009 Umbilical hernia age 3 Varicella zoster [...] nursing note reviewed. Exam conducted with a hairmasters manager present. Vitals: Estimated body mass index is [...] reviewed, and patient is to proceed to [facility]. Follow Up: Patient is to follow up at 1 & 6 weeks post operative to assess proper healing and recovery from procedure. Documented by Carmelina Heard LPN on behalf of: Jaxson Gonzales DO documented in this encounterCenterPointe HospitalPeipihbwbg89-59-6009 Evaluation note* Diagnosis Onset Date Resolution Status Admit Date Acute UTI acuteSeptember 2024 12:24pm [facility] Work Phone: 1(303) 376-938608-07-2025 Evaluation note* Type Assessment Date assessment Encounter for screening for dent al disorders [facility] Work Phone: 1(665) 125-528908-07-2025 History of Present illness Narrative* Encounter Date Complaint History Of Prese nt Illness SRP SRP [facility] Work Phone: 1(417) 639-956005-06-2025 History of Present illness Narrative* Madi Alvares, JAYASHREE - 09/26/2024 9:30 AM EDT [facility] VIS[facility] CC: Right great toe pain HPI:Farzaneh Marvin is a 33 y.o. female who [...] LAPAROSCOPY 2007 pelvic pain PELVIC LAPAROSCOPY 2017 [place] COLPOSCOPY,ENTIRE [...] Homegoing instructions were dispensed, including office and software developer consultant contact numbers. documented in this encounterCenterPointe HospitalDrohjhohtv25-85-5003 Instructions* Patient Instructions* Hannah Tatum MA - [...] please call the office. documented in this encounterCenterPointe HospitalWfifaykjmc74-81-4775 History of Present illness Narrative* Ellen Warren, LUBA - 09/11/2024 10:20 AM EDT Images from [...] hr labor VAGINAL DELIVERY 2009 VAGINAL DELIVERY 2014 Social History: Social Drivers of Health Tobacco [...] orders for this visit: Viral URI - nyytfjpkrdkchqv-pohjqxycpejjedn-DG 30-2-10 MG/5ML syrup; Take 5 mL by [...] or fail to improve. documented in this encounterCenterPointe HospitalSckvixkjuu87-47-9837 History of Present illness Narrative* LORELEI Crockett - 08/22/2024 11:20 AM EDT Images from the original note were not included. Subjective Patient ID: Farzaneh Marvin is a 33 y.o. female who presents for Annual Exam (Pt states she is here for a yearly wellness. Pt states that she will starting at [facility] and she will need the wellness for her health insurance. ). Wellness Examination Pt presents to the office for an annual wellness visit without any current complaints. She recentlyhad labs completed at [facility] [employer] and is not currently taking any medications. [...] family history were discussed. documented in this encounterCenterPointe HospitalOuyvhwxdem80-86-7671 History of Present illness Narrative* LORELEI Crockett - 08/18/2024 1:05 PM EDT Referral sent. documented in this encounterCenterPointe HospitalRuwhojoirt57-75-2114 History of Present illness Narrative* Karla Payne LPN - 08/15/2024 11:20 AM EDT Reason for Appointment: Patient ID: Farzaneh Marvin is a 33 y.o. female who presents for [facility] Visit Patient presents today for Annual [...] nursing note reviewed. Exam conducted with a hairmasters manager present. Vitals: Estimated body mass index is [...] of: Jaxson Gonzales DO documented in this encounterCenterPointe HospitalNavjsijltx87-43-8061 History of Present illness Narrative* LORELEI Crockett [...] concerns. Pt verbalized understanding. documented in this encounterCenterPointe HospitalXfjnrtbgbh30-05-4636 History of Present illness Narrative* LORELEI Whaley [...] swab in house negative. documented in this encounterCenterPointe HospitalCejuizgxuk03-17-7336 NoteOPERATIVE NOTE OPERATION DATE: 10/09/2021 PROCEDURE: Juhi endometrial ablation with hysteroscopy. PREOPERATIVE DIAGNOSIS: Menorrhagia. POSTOPERATIVE DIAGNOSIS: Menorrhagia. ANESTHESIA: General. SURGEON: Jaxson Gonzales M.D. DIAMOND DRILLER: None. FINDINGS: Normal appearing endometrium. Both ostia [...] Patient taken to recovery in stable condition. [facility] Signed and Approved by: DR JAXSON GONZALES . 10/13/2021 07:35:00[facility] note* Clinical Note Date No Information [facility] Work Phone: Discharge summary* Clinical Note Date No Information [facility] Work Phone: Evaluation note* Diagnosis Onset Date Resolution Status COVID acuteContact with and (suspected) exposure to covid-19noneactiveSore throat noneactive [facility] Work Phone: Evaluation note* Diagnosis Viral syndrome- Primary Unspecified viral infection, in conditions classified elsewhere and of unspecified site documented in this encounter [facility] HealthcareEvaluation note* Diagnosis Paronychia of great toe of right foot- Primary Toenail fungus documented in this encounter [facility] HealthcareEvaluation noteNo assessment information availableUniversity Hospitals Health System Work Phone: Evaluation note* Diagnosis Paronychia of toe, unspecified laterality- Primary documented in this encounter [facility] HealthcareEvaluation note* Diagnosis Well woman exam with routine gynecological exam Routine gynecological examination Menorrhagia with regular cycle History of endometrial ablation documented in this encounter [facility] HealthcareEvaluation note* Diagnosis Annual wellness visit- Primary documented in this encounter [facility] HealthcareEvaluation note* Diagnosis Viral URI- Primary Acute upper respiratory infections of unspecified site Cough, unspecified type documented in this encounter [facility] HealthcareEvaluation note* Diagnosis Ingrown toenail- Primary Ingrowing nail Right foot pain Pain in soft tissues of limb documented in this encounter [facility] HealthcareEvaluation note* Diagnosis Onset Date Resolution Status Admit Date Dysuria noneactiveSeptember 2024 12:24pm [facility] Work Phone: Evaluation note* Diagnosis Pre-op examination Menorrhagia with regular cycle Pelvic pain in female Unspecified symptom associated with female genital organs Dysmenorrhea Dyspareunia, female HGSIL (high grade squamous intraepithelial lesion) on Pap smear of cervix documented in this encounter [facility] HealthcareEvaluation note* Diagnosis LGSIL of cervix of undetermined significance Menorrhagia with regular cycle Dyspareunia in female Pelvic pain History of endometrial ablation documented in this encounter [facility] HealthcareHistory and physical note* Clinical Note Date No Information [facility] Work Phone: History of Past illness Narrative* Condition Effective Dates (start - stop) O utcome No Information [facility] Work Phone: Instructions* Date Instruction Additional Infor mation No Information [facility] Work Phone: Progress note* Clinical Note Date No Information [facility] Work Phone: Reason for referral (narrative)* Reason For Referral No Information [facility] Work Phone: Rexvlc for referral (narrative)No reason for referral information availableLake County [facility] Work Phone: Review of systems Narrative - Reported* System Pos/Neg Findings No Information [facility] Work Phone: Advance Directives No Advanced Directives [...] Date Acute UTI February 10, 2025 12:24pm Chief Complaint Admit Date Dysuria February 10, 2025 12:24pm R30.0 February 10, 2025 12:35pm Z23 March 02, 2025 9 :00am Unknown March 12, 2025 1 2:31pm Assessments No Assessments Information Available Summary Purpose Family History No Family History Records Found Family Member Type Diagnosis Age At Onset No Information Additional Source Comments INFORMATION SOURCE (unrecogn ized section and content) DATE CREATED AUTHOR 06/25/2022 [facility] DATE CREATED AUTHOR AUTHOR'S ORGANIZ ATION 12/30/2024 [facility] DATE CREATED AUTHOR AUTHOR'S ORGANIZ ATION 03/14/2025 [facility] DATE CREATED AUTHOR AUTHOR'S ORGANIZ ATION 03/14/2025 [facility] Care Teams (unrecognized sec tion and content) Team Status: Active Member Role Status Dates Gabino Prieto DO Primary Care Provider Active Team Status: Inactive Member Role Status Dates Gabino Prieto DO Primary Care Provider Active Start: February 02, 2024 End: February 01Brea Victoria ProviderActiveStart: February 02, 2024 End: February 02, 2024Team MemberRelationshipSpecialtyStart DateEnd Date Warren Prieto DO [address] [place] [address] PCP - [facility]ally Medicine09/29/22Team MemberRelationshipSpecialtyStart DateEnd Date Warren Prieto DO [address] [place] [address] PCP - Generalmily Medicine09/29/22Team MemberRelationshipSpecialtyStart DateEnd Date Warren Prieto DO [address] [place] [address] PCP - GeneralFamily Medicine09/29/22 Team Status: Inactive Member Role Status Sisi Prieto DO Primary Care Provider Active Start: August 14, 2024 End: August 14, 2024Wes John Jr, DOAttending ProviderActiveStart: August 14, 2024 End: August 14, 2024Team MemberRelationshipSpecialtyStart DateEnd Date Warren Prieto DO [address] [place] [address] PCP - Generalmily Medicine09/29/22Team MemberRelationshipSpecialtyStart DateEnd Date Warren Prieto DO [address] [place] [address] [facility]CP - [facility]09/29/22Team MemberRelationshipSpecialtyStart DateEnd Date Warren Prieto, [address] [place] [address] PCP - GeneralFamily Medicine09/29/22Team MemberRelationshipSpecialtyStart DateEnd Date Warren Prieto DO [address] [place] [address] PCP - GeneralFamily Medicine09/29/22Team MemberRelationshipSpecialtyStart DateEnd Date Warren Prieto DO [address] [place] [address] PCP - GeneralFamily Medicine09/29/22Team MemberRelationshipSpecialtyStart DateEnd Date Warren Prieto DO [address] [place] [address] PCP - GeneralFamily Medicine09/29/22Team MemberRelationshipSpecialtyStart DateEnd Date Warren Prieto DO [address] [place] [address] [facility] - [facility]09/29/22 Team Status: Inactive Member Role Status Dates Jaxson Gonzales DO Attending Provider Active Start : September 05, 2024 End: September 05, 2024Team MemberRelationshipSpecialtyStart DateEnd Date Warren Prieto DO [address] [place] [address] PCP - [facility] Medicine09/29/22Team MemberRelationshipSpecialtyStart DateEnd Date Warren Prieto DO [address] [place] [address] PCP - [facility] Medicine09/29/22 Name Effective Dates (start - stop) [...] Member Role Status Dates Adeel QUINN DO [facility] Attending Provider Active Start: March 02, 2025 End: March 02, 2025Team MemberRelationshipSpecialtyStart DateEnd Date Warren Prieto DO [address] [place] [address] [facility] - [facility]09/29/22 Team Status: Inactive Member Role/Relationship Status Dates Tania Dove APRN Attending Provider Active Start: February 10, 2025 End: February 10, 2025G. Prerna Cadena Care ProviderActiveStart: February 10, 2025 End: February 10, 2025 Team Status: Inactive Member Role/Relationship Status Dates Tania Dove APRN Attending Provider Active Start: February 10, 2025 End: February 10, 2025 Team Status: Inactive Member Role/Relationship Status Dates Adeel QUINN , DO [facility] Attending Provider Active Start: March 02, 2025 End: March 02, 2025 Team Status: Inactive Member Role/Relationship Status Dates Jaxson Gonzales DO Attending Provider Active Start : March 12, 2025 End: March 12, 2025Team MemberRelationshipSpecialtyStart DateEnd Date Warren Prieto DO [address] [place] [address] [facility] - [facility] Medicine09/29/22 Goals (unrecognized section and content) Health Concern [...] Pt states that she will starting at [facility] and she will need the wellness for her health insurance.ReasonCommentsPre-op Visit Endometrial BiopsyReasonCommentsAbnormal Pap Smear FOR RECORDS PERTAINING TO PATIENTS WHO ARE [...] BE BASED ON THE PRIMARY CLINICAL RECORDS. [employer] [facility]. provides no warranty or guarantee of the accuracy or completeness of information in this document.
== END 2025-03-12 09:59 ==
LOC: LAB 09:58
PROVIDERS: PCP Family Medicine; Visit Provider Obstetrics & Gynecology
DX: N92.0 Excessive and frequent menstruation with regular cycle (principal)
CPT/HCPCS: 88305

== ENCOUNTER 2025-03-13 12:17 | Outpatient (REF) | payer MEDICAID, SELFPAY ==
--- OUTSIDE RECORDS SUMMARY | 2025-03-05 09:26 | XMS_ITS | Continuity of Care Document ---
Author Organization [facility] Address [address] [place] [address] Phone Care Team Providers Care Narrative Writer Name Role Phone Tania Dove APRN Attending Provider Gabino Prieto DO Primary Care Provider Adeel Nogueira DO Attending Provider Care Teams Visit Care Team Team Status: Inactive Member Role Status Dates Tania Dove APRN Attending Provider Active Start: February 10, 2025 End: February 10, 2025GPrerna Gonzales Care ProviderActiveStart: February 10, 2025 End: February 10, 2025 Visit Care Team Team Status: Inactive Member Role Status Dates Tania Dove APRN Attending Provider Active Start: February 10, 2025 End: February 10, 2025 Patient Care Team Team Status: Inactive Member Role Status Dates Adeel QUINN DO [facility] Attending Provider Active Start: March 02, 2025 End: March 02, 2025 Chief Complaint and Reason for Visit Chief Complaint Admit Date Dysuria February 10, 2025 12:24pm R30.0 February 10, 2025 12:35pm Z23 March 02, 2025 9 :00am Reason for Visit Admit Date Acute UTI February 10, 2025 12:24pm Allergies, Adverse Reactions, Alerts Allergen Type Severity Reaction Last Updated Verified Status levofloxacin Allergy Unknown Hives February 10, 2025 12:40p m Yes Active Social History Smoking Status Status Start Date End Date Date of Observa tion Ex-smoker (finding) February 10, 2025 12:42pm Observation Status Observation Response Date of Response Legal Sex [facility] ([facility]) [facility] 1990 Problems Active Problems Medical Problem Onset Date Status Comments COVID Unknown Active Renal stoneUnknownActiveAcute UTIUnknownActiveInactive/Resolved Problems Medical Problem Onset Date Status Comments Ureterolithiasis Unknown Resolved Problem Lis t clean-up per request of Phys. EHR Cmte Pharyngitis Unknown Resolved Problem List cl richi-up per request of Phys. EHR Cmte Medications Medication Status Dose Units Route Directions Qty Days St art Date Stop Date End Date Instructions Adherence Nitrofurantoin Monohyd/M-Cryst (Macrobid) 100 mg capsule Active 100 MG PO Every 12 hours 10 5 Se ptember 2024 12:00am must administer with a meal/foodUnknownHydrocodone-Acetaminophen ([place]) 5-325 mg DojeapCojbxdfyaecy2CBJEXRLIIP 4-6 HOURS as needed for Hojo05Ubhqamfhy2018 12:00amSeptember 2023 6:33pmTamsulosin (Flomax) 0.4 mg capsule Discontinued0.5GWRFLvyoh8Likcgkjcn 21st, 2019 12:00amSeptember 2023 6:32pm Ondansetron 4 mg Tablet,WonnqfhmfaiedaCvptzytkiecv7NOFGalous 6 to 8 hours as needed for Zrntun28Qbstarnnt 21st, 2019 12:00amSeptember 2023 6:33pm Naproxen (Naprosyn) 500 mg FqciahRpqngduqxxcw342XTZHJ15M71Zzualatqe 21st, 2019 12:00amSeptember 2023 6:33pmadminister with food or milkNirmatrelvir- Ritonavir (Paxlovid) 300 mg (150 mg x 2)-100 mg tablets,dose nhxcRjzxqsqscxzg8XF .KJPPRQV98Qtdjbujgu 11th, 2024 12:00amSept2023 6:58pmtake TWO 150 mg tablets of nirmatrelvir with ONE 100 mg tablet of ritonavir twice daily for 5 days PONirmatrelvir-Ritonavir (Paxlovid) 300 mg (150 mg x 2)-100 mg tablets,dose zfzlUzrdxfpcxpgu9OF.SOXRLGO69Wacsolwkj 11th, 2024 12:00amSept2024 12:41pmtake TWO 150 mg tablets of nirmatrelvir with ONE 100 mg tablet of ritonavir twice daily for 5 days POSulfamethoxazole-Trimethoprim 800-160 mg olhimjAwpnyg4PRCJKXljfv 12 dmfzd739PpavnvpitFebruary 10, 2025 12:00amUnknown Phenazopyridine (Pyridium) 200 mg ylghvrZaedsp548EOAOLdkvi times daily as needed for lkml00LoozemztkFebruary 10, 2025 12:00amUnknown Procedures Procedure Date Performed Status Urine Culture February 10, 2025 completed Relevant Diagnostic Tests and/or Laboratory Data Laboratory Results Test Collection Date/Time Result Date/Time Result Interpretation Reference Range Result Comment Performing Site Urine Color February 10, 2025 12:50pm February 10 12:53pm yellow Urine AppearanceSept2024 12:50pmSeptember 2024 12:53pmcloudy Urine Specific GravitySept2024 12:50pmSept2024 12:53pm >=1.030Urine pHSept2024 12:50pmSept2024 12:53pm6.0Urine Leukocyte EsteraseSept2024 12:50pmSeptember 2024 12:53pmsmall Urine NitriteSept2024 12:50pmSept2024 12:53pmNegative Urine ProteinSept2024 12:50pmSept2024 12:09pv773Zcxwn Glucose (UA)February 10, 2025 12:50pmSept2024 12:53pmnegative Urine KetonesSept2024 12:50pmSept2024 12:53pmnegative Urine UrobilinogenSept2024 12:50pmSept2024 12:53pm0.2 Urine BilirubinSept2024 12:50pmSept2024 12:53pmnegative Urine Occult BloodSept2024 12:50pmSept2024 12:53pm trace-intact Microbiology Results Procedure Source Result Collection Date/Time Result Date/Time Result Comment Performing Site Urine Culture Urine Escherichia coli (MDRO) Sep 2024 12:35pm February 13, 2025 2:40pm [facility] [id number] [address] [place] [id number] Vital Signs Vital Reading Result Reference Range Collection Date/Time Height 65 [in_i] February 10, 2025 12:75tmNawbvi15.89 kgSe2024 12:39pmBody Pjnkwsusosg64.6 [degF]97.6-99.0Se2024 12:39pmHeart Rate77 /min 60-100Se2024 12:39pmRespiratory rate18 /yem55-93RbcpvanezFebruary 10, 2025 12:39pmOxygen saturation by Pulse navcahju99 %95-100Se2024 12:39pmBP Amepxjyf476 mm[Hg]100-140Se2024 12:39pmBP Pqqpmjdxs44 mm[Hg]60-100Sept2024 12:39pmBMI (Body Mass Index)34.4 kg/h9QonvnoyorFebruary 10, 2025 12:39pm Advance Directives Advance Directive Response Recorded Date/ Time Advance Directives No March 29, 2018 6:45pm Insurance Providers Guarantor Ventura Mahan Address [address] [facility] [address]Fmhwjfq Info.Home Phone: Payer Policy Id Subscriber's Name Subscriber Id Effectiv e Date Expiration Date Silvia ARRIOLA [id number] Ventura Mahan [id number] Encounters Encounter Location(s) Arrival/Admit Date Discharge/Depart Date Provider(s) Departed Physician/Prov ider Office Visit -[facility] February 10, 2025 12:24pm February 10, 2025 1:00pm Ventura Duarte APRN Departed Clinical -Lab [facility] February 10, 2025 12:35pm February 10, 2025 12:36pm Ventura Duarte APRN Departed Clinical -Flu Vaccine March 02, 2025 9:00am March 02, 2025 9:30am Babar Carbajal DO Recent Diagnosis Onset Date Admit Date Acute UTI Unknown February 10, 2025 12:24pm Assessments Diagnosis Onset Date Resolution Status Admit Date Acute UTI acuteSept2024 12:24pm Plan of Treatment Author [facility] 2:08pm UA with Small leukocytes, trace blood. Will treat with bactrim. As needed Pyridium Rx sent for symptomatic treatment. Push fluids. We will culture urine and notify of results in 2 to 4 days. Advised to follow-up with PCP if symptoms or not gradually improving over the next 3 to 4 days. Patient verbalized understanding of treatment plan. Future Tests Future scheduled test information is unavailable Pending Tests Pending diagnostic test information is unavailable Future Visits Future appointment information is unavailable Referrals to Other Providers Referral information is unavailable Future Procedures Future procedure information is unavailable Future Medications Future medication information is unavailable Patient Instructions Patient instructions are unavailable
--- OUTSIDE RECORDS SUMMARY | 2025-03-12 09:30 | XMS_ITS | Encounter Summary ---
Author Organization [facility] Address [address] [place] [address] Care Team Providers Care Asphalt Coater Name Role Phone Warren Prieto DO Primary Care Provider [phone] Reason for Visit * ReasonCommentsPre-op VisitEndometrial Biopsy Encounter Details DateTypeDepartmentCare Team (Latest Contact Info)Qtzzffnfjqg93/20/2025 9:30 AM EDTProcedure Visit [facility] [address] [phone] Jaxson Gonzales DO [address] [place] [id number] Pre-op examination; Menorrhagia with regular cycle; Pelvic pain in female; Dysmenorrhea; Dyspareunia, female; HGSIL (high grade squamous intraepithelial lesion) on Pap smear of cervix Social History Tobacco UseTypesPacks/DayYears UsedDateSmoking Tobacco: FormerCigarettes Smokeless Tobacco: NeverAlcohol UseStandard Drinks/WeekCommentsNever0 (1 standard drink = 0.6 oz pure alcohol)Caffeine: > 4 cups/day sodaPHQ-2AnswerDate RecordedPatient Health Questionnaire-2 Bobxt261CommentsUnknown Sex and Gender InformationValueDate RecordedSex Assigned at BirthNot on file Legal UhwEjiycl16/15/2023 6:48 PM EDTGender IdentityNot on fileSexual OrientationNot on filedocumented as of this encounter Last Filed Vital Signs Vital SignReadingTime TakenCommentsBlood Offxkjoj350/8010 9:34 AM EDT Pulse--Temperature--Respiratory Rate--Oxygen Saturation--Inhaled Oxygen Concentration--Sqfdyn82.3 kg (210 lb)03/12/2025 9:34 AM EDTHeight--Body Mass [...] on 04/11/[address] Gonzales at [facility]. MEDICATIONS No current outpatient medications ALLERGIES Allergies [...] (BMI 30-39.9) Pelvic pain 2007 Pre-op exam ([facility]) 2010 ([facility]) 2009 Umbilical hernia Varicella zoster Well woman [...] (BMI 30-39.9) Pelvic pain 2007 Pre-op exam ([facility]) 2010 ([facility]) 2009 Umbilical hernia age 3 Varicella zoster [...] LAPAROSCOPY 2007 pelvic pain PELVIC LAPAROSCOPY 2018 [place] COLPOSCOPY,ENTIRE VAGINA,W/BIOPSY(S) 2009 abnormal pap smear TUBAL [...] nursing note reviewed. Exam conducted with a school bus technician present. Vitals: Estimated body mass index is [...] reviewed, and patient is to proceed to [facility] OR. Follow Up: Patient is to follow [...] encounter Procedures Procedure NamePriorityDate/TimeAssociated DiagnosisCommentsPOCT , URINE Qpmqziz6903/12/2025 9:44 AM EDT Pre-op examination Menorrhagia with regular cycle Pelvic pain in female Dysmenorrhea Dyspareunia, female HGSIL (high grade squamous intraepithelial lesion) on Pap smear of cervix documented in this encounter Results * POCT , urine manually resulted (03/12/2025 9:44 AM EDT)ComponentValue Ref RangeTest MethodAnalysis TimePerformed AtPathologist SignaturePreg Test, UrNegativeNegativeSpecimen (Source)Anatomical Location / LateralityCollection Method / VolumeCollection TimeReceived WoauDuoph18/20/2025 9:44 AM EDT Narrative Authorizing ProviderResult TypeResult [...] DO [address] [place] [address] PCP - GeneralFamily Medicine09/29/22documented as of this encounter
--- OUTSIDE RECORDS SUMMARY | 2025-03-13 10:40 | XMS_ITS | Encounter Summary ---
Author Organization [facility] Address [address] [place] [address] Care Team Providers Care Solar Crew Member Name Role Phone Warren Prieto Primary Care Provider [phone] Reason for Visit * ReasonCommentsAbnormal Pap Smear Encounter Details DateTypeDepartmentCare Team (Latest Contact Info)Tihwckevtaj02/21/2025 10:40 AM EDTProcedure Visit [facility] [address] [place] [address] Jaxson Gonzales DO [address] [place] [id number] LGSIL of cervix of undetermined significance; Menorrhagia with regular cycle; Dyspareunia in female; Pelvic pain; History of endometrial ablation Social History Tobacco UseTypesPacks/DayYears UsedDateSmoking Tobacco: FormerCigarettes Smokeless Tobacco: NeverAlcohol UseStandard Drinks/WeekCommentsNever0 (1 standard drink = 0.6 oz pure alcohol)Caffeine: > 4 cups/day sodaPHQ-2AnswerDate RecordedPatient Health Questionnaire-2 [id number] Sex and Gender InformationValueDate RecordedSex Assigned at BirthNot on file Legal RxgWcqtpt82/15/2023 6:48 PM EDTGender IdentityNot on fileSexual OrientationNot on filedocumented as of this encounter Last Filed Vital Signs Vital SignReadingTime TakenCommentsBlood Nwyipugj897/8010 10:32 AM EDT Pulse--Temperature--Respiratory Rate--Oxygen Saturation--Inhaled Oxygen Concentration--Lgxisj29.3 kg (210 lb)03/13/2025 10:32 AM EDTHeight--Body Mass Index34.95009/11/2024 10:23 AM EDTdocumented in this encounter Plan of Treatment NameTypePriorityAssociated [...] DateEnd Date Warren Prieto DO [address] [address] PCP - GeneralFamily Medicine09/29/22documented as of this encounter
--- OUTSIDE RECORDS SUMMARY | 2025-03-13 12:21 | XMS_ITS | Encounter Summary ---
Author Organization [facility] Address [address] [place] [address] Care Team Providers Care Hot Die Press Operator Name Role Phone Warren Prieto DO Primary Care Provider [phone] Encounter Details DateTypeDepartmentCare Team (Latest Contact Info)Bxfnagduxec66/21/2025amboo flowsheet [facility] [address] [place] [address] Jaxson Gonzales DO [address] [place] [id number] Social History Tobacco UseTypesPacks/DayYears UsedDateSmoking Tobacco: FormerCigarettes Smokeless Tobacco: NeverAlcohol UseStandard Drinks/WeekCommentsNever0 (1 standard drink = 0.6 oz pure alcohol)Caffeine: > 4 cups/day sodaPHQ-2AnswerDate RecordedPatient Health Questionnaire-2 [id number] Sex and Gender InformationValueDate RecordedSex Assigned at BirthNot on file Legal TeoFxnqnl72/15/2023 6:48 PM EDTGender IdentityNot on fileSexual OrientationNot on filedocumented as of this encounter Plan of Treatment Not on file documented as of this encounter Visit Diagnoses Not on filedocumented in this encounter Care Teams Team MemberRelationshipSpecialtyStart DateEnd Date Warren Prieto DO [address] [facility] [place] [address] PCP - GeneralFamily Medicine09/29/22documented as of this encounter
--- OUTSIDE RECORDS SUMMARY | 2025-03-13 12:21 | XMS_ITS | Clinical Summary ---
Author Organization [facility] Address [address] [place] [address] Care Team Providers Care Derrick Operator Name Role Phone Warren Prieto Primary Care Provider [phone] Allergies Active AllergyReactionsCriticalityNoted CncoMcugxpgbPuyfarcaenztBndiu01/18/2023 Levofloxacin In D5w08/09/2013 Medications No known medications Active Problems ProblemNoted DateDiagnosed DateHuman papilloma virus (HPV) xpgvogxqr39/18/2023 Liver lesion, right lobe02/08/2023Low grade squamous intraepithelial lesion (LGSIL) on cervicovaginal cytologic smear02/08/20231593Vckkfatagbz18/18/2023Obesity 3Pain in tzezdx9202/08/20238497Ecsjylhpi52/18/2023Thrombocytopenic disorder 3Distal radius jcjcexcv23/10/2014 Encounters DateTypeDepartmentCare RiklWfdiallqugf60/21/2025 10:40 AM EDTProcedure Visit [facility] [place] [address] [place] [address] Jaxson Gonzales DO LGSIL of cervix of undetermined significance; Menorrhagia with regular cycle; Dyspareunia in female; Pelvic pain; History of endometrial jpyhvdgm79/21/2025amboo flowsheet [facility] [place] [place] [address] Jaxson Gonzales DO 03/12/2025 9:30 AM EDTProcedure Visit [facility] [address] [place] [address] [place] [address] Jaxson Gonzales, Pre-op examination; Menorrhagia with regular cycle; Pelvic pain in female; Dysmenorrhea; Dyspareunia, female; HGSIL (high grade squamous intraepithelial lesion) on Pap smear of cervixfrom Last 3 Months Immunizations ImmunizationAdministration DatesNext CiwQBO8506/25/1991,12/02/1990,04/22/1990, 01/31/1990Hib (PRP-T)03/31/1991,12/02/1990IPV106/25/1991,04/22/1990,01/31/1990 Influenza, seasonal, injectable, preservative free08/14/2024MMR106/25/1991, 03/31/1991Meningococcal MRF2H7410/05/2006Tdap11/19/2014 Family History Medical HistoryRelationNameCommentsNo Known ProblemsDaughter 1No Known Problems Daughter 2DiabetesFatherHypertensionMotherDiabetesPaternal GrandmotherDiabetes SiblingNo Known ProblemsSon 1No Known ProblemsSon 2No Known ProblemsSon 3 RelationNameStatusCommentsDaughter 1AliveDaughter 2AliveFatherAliveMotherAlive Paternal GrandmotherSiblingAlive1 brother, 2 sistersSon 1AliveSon 2AliveSon 3 Alive Social History Tobacco UseTypesPacks/DayYears UsedDateSmoking Tobacco: FormerCigarettes Smokeless Tobacco: Never Tobacco Cessation:Counseling Given: Yes Alcohol UseStandard Drinks/WeekCommentsNever0 (1 standard drink = 0.6 oz pure alcohol)Caffeine: > 4 cups/day sodaPHQ-2AnswerDate RecordedPatient Health Questionnaire-2 Mnsvu303CommentsUnknownSex and Gender InformationValueDate RecordedSex Assigned at BirthNot on fileLegal SexFemale 08/05/2022 6:48 PM EDTGender IdentityNot on fileSexual OrientationNot on file Last Filed Vital Signs Vital SignReadingTime TakenCommentsBlood Wpefghsq914/8010 10:32 AM EDT Qlzxa3998 10:23 AM UKNFnjqnrmdpuj22.2 ??C (97.1 ??F)09/11/2024 10:23 AM EDTRespiratory Rate--Oxygen Aqncfitrkw74%09/11/2024 10:23 AM EDTInhaled Oxygen Concentration--Bnlpez23.3 kg (210 lb)03/13/2025 10:32 AM MSHHmcbyz401.1 cm (5' 5 )09/11/2024 10:23 AM EDTBody Mass Index34.95009/11/2024 10:23 AM EDT Plan of Treatment Health MaintenanceDue DateLast DoneCommentsHPV/Njcypk485005/30/2019 Cervical Cancer Btmvitvgz14/25/2028Pap SmearInfluenza ArsfxlyRleaskohj18/10/2025, 08/14/2024 Procedures Procedure NamePriorityDate/TimeAssociated DiagnosisCommentsPOCT , URINE Kffcebq3703/12/2025 9:44 AM EDT Pre-op examination Menorrhagia with regular cycle Pelvic pain in female Dysmenorrhea Dyspareunia, female HGSIL (high grade squamous intraepithelial lesion) on Pap smear of cervix PAP KGHGIFtarpxo07/25/2025 12:00 AM EDTTHIN PREP (R) TIS W/RFL IF ASCUS HPV MRNA Monmcwb8305/30/2019 12:00 PM EST from Last 3 Months or Most Recently Relevant to Health Maintenance Results * POCT , urine manually resulted (03/12/2025 9:44 AM EDT)ComponentValue Ref RangeTest MethodAnalysis TimePerformed AtPathologist SignaturePreg Test, UrNegativeNegativeSpecimen (Source)Anatomical Location / LateralityCollection Method / VolumeCollection TimeReceived YqdmRtojn09/20/2025 9:44 AM EDT Narrative Authorizing ProviderResult TypeResult StatusCorey Christian DOPOINT OF CARE TEST ENTER/EDIT ORDERABLESFinal Result * Pap Smear (08/15/2024 12:00 AM EDT)Specimen (Source)Anatomical Location / LateralityCollection Method / VolumeCollection TimeReceived TimeSwabCervical swab / Unknown Narrative Authorizing ProviderResult TypeResult StatusCorey Christian DOLAB CYTOLOGY ORDERABLESFinal ResultPerforming OrganizationAddressCity/State/ZIP CodePhone Number EXTERNAL LAB * THIN PREP (R) TIS W/RFL IF ASCUS HPV MRNA (05/30/2019 12:00 PM EST)Component ValueRef RangeTest MethodAnalysis TimePerformed AtPathologist SignatureRESULTS SSIECW NONXML LABSSpecimen (Source)Anatomical Location / LateralityCollection Method / VolumeCollection TimeReceived Time05/30/2019 12:00 PM EST Narrative Authorizing ProviderResult TypeResult StatusGeorge Briseyda Prieto DOECW LABSFinal ResultPerforming OrganizationAddressCity/State/ZIP CodePhone Number [facility] NONXML LABS from Last 3 Months or Most Recently Relevant to Health Maintenance Insurance Care Teams Team MemberRelationshipSpecialtyStart DateEnd Date Warren Prieto DO [address] [place], [place] [id number] PCP - GeneralFamily Medicine09/29/22
--- OUTSIDE RECORDS SUMMARY | 2025-03-13 12:22 | XMS_ITS | Clinical Summary ---
Author Organization [facility] Address [address] [place] [address] Phone Care Team Providers Care Apparel Fashion Designer Name Role Phone Unavailable Primary Care Provider Unavailabl e Social History Tobacco UseTypesPacks/DayYears UsedDateSmoking Tobacco: Never Assessed CommentsUnknownSex and Gender InformationValueDate RecordedSex Assigned at Not on fileLegal CcrDcrqde71/26/2022 6:29 PM ESTGender IdentityNot on fileSexual OrientationNot on file Plan of Treatment Not on file
--- OUTSIDE RECORDS SUMMARY | 2025-03-13 12:22 | XMS_ITS | Clinical Summary ---
Author Organization [facility] Address [address], [address] [place] [address] Care Team Providers Care Photoengraving Supervisor Name Role Phone MadieWarren archer Primary Care Provider [phone] Allergies Active AllergyReactionsCriticalityNoted DateCommentsLevofloxacin In D5w 08/09/2013 Medications MedicationSigDispense QuantityRefillsLast FilledStart DateEnd DateStatus ibuprofen (ADVIL;MOTRIN) 200 MG tablet Take 200 mg by mouth every 6 hours as needed for Pain.Active Active Problems ProblemNoted DateDiagnosed DateDistal radius doolcxfg47/10/2014 Social History Tobacco UseTypesPacks/DayYears UsedDateSmoking Tobacco: FormerAlcohol Use Standard Drinks/WeekCommentsNo0 (1 standard drink = 0.6 oz pure alcohol) CommentsNoSex and Gender InformationValueDate RecordedSex Assigned at BirthNot on fileLegal IrySiqqse05/10/2013 10:16 AM ESTGender IdentityNot on fileSexual OrientationNot on file Last Filed Vital Signs Vital SignReadingTime TakenCommentsBlood Jaklqyut208/7404 2:47 PM EDT Fryci537408/09/2013 11:15 AM QTXBnpjlbqfspv51.6 ??C (97.9 ??F)08/09/2013 11:15 AM EDTRespiratory Mbba860808/09/2013 11:15 AM EDTOxygen Uemzibjrsa86%08/09/2013 11:15 AM EDTInhaled Oxygen Concentration--Intqie33 kg (130 lb 1.1 oz)09/14/2013 2:54 PM LOJEkybcm811 cm (5' 4.96 )09/14/2013 2:54 PM EDTBody Mass Index21.67 09/14/2013 2:54 PM EDT Plan of Treatment Not on file Care Teams Team MemberRelationshipSpecialtyStart DateEnd Date Warren Prieto DO [address] [place] [address] [facility] - General08/09/13
--- OUTSIDE RECORDS SUMMARY | 2025-03-13 12:22 | XMS_ITS | CCD ---
Author Organization [facility] Care Team Providers Care Protective Signal Installer Helper Name Role Phone Gabino Prieto Primary Care Provider Unavaila willy GONZALES, DR PAIZ Admitting Unavailable CHRISTIAN, DR PAZI Attending Unavailable KASHAN, DR Stoney JAY Primary Care Unavailable CHRISTIAN, DR PAIZ Consulting Unavailable AGUBOSIM, SHILA Consulting Unavailable SERENE MARTINO Consulting Unavailable ARTIE LI Consulting Unavailable ELLEN WARREN Attending Unavailable ELLEN WARREN Admitting Unavailable CONNER, DR Stoney JAY Primary Care Unavailable ALEXIS, DR MALICK Rain Consulting Unavailable ELLEN WARREN Consulting Unavailable CHRISTIAN, DR PAIZ Consulting Unavailable [...] Attending Unavailable CHRISTIAN, DR PAIZ Admitting Unavailable MAZARIEGOS, CORTNEY Consulting Unavailable KASHAN, DR Stoney JAY Primary Care Unavailable CHRISTIAN, DR PAIZ Admitting Unavailable CHRISTIAN, DR PAIZ Attending Unavailable CONNER, DR Stoney JAY Primary Care Unavailable KASHAN, DR Stoney JAY Referring Unavailable CHRISTIAN, DR PAIZ Consulting Unavailable Warren Prieto DO Primary Care Provider Gabino Prieto DO Primary Care Provider Wes John DO Attending Provider [phone] Jaxson Gonzales DO Attending Provider [phone] Kanani DMD, Genaro Attending Unavailable Warren Prieto DO Primary Care Unavailable Kanani DMD, Genaro Unavailable Unavailable Tania Dove APRN Attending Provider Gabino Prieto DO Primary Care Provider [facility] DO, Adeel Eckert Attending Provider Tania Dove Attending Unavailable Tania Dove Admitting Unavailable [facility], Adeel Eckert Attending Unavailable [facility], Adeel P Admitting Unavailable [facility], Adeel P Attending Unavailable [facility], Adeel P Admitting Unavailable Jaxson Gonzales Attending Unavailable Jaxson Gonzales Admitting Unavailable Wes John Jr Attending Unavailable Wes John Jr Admitting Unavailable Gabino Prieto Primary Care Unavailable JAXSON GONZALES Attending Unavailable CORRINE LAMAR Attending Unavailable JAXSON GONZALES Attending Unavailable ELLEN WARREN Attending Unavailable MADI ALVARES Attending Unavailjian e JAXSON GONZALES Attending Unavailable CORRINE LAMAR Attending Unavailable Unavailable Unavailable Unavailable Allergies Allergy ClassificationReported Allergen(s)Allergy TypeDate of OnsetReaction(s) Facility (20 sources)levoFLOXacin; Translations: [levofloxacin]Drug Mamfcrp14-91-3413 [facility] (1 source)levoFLOXacinDrug Wndpxdj62-05-2538[facility] (13 sources)levoFLOXacinDrug Mlvksjc17-43-7450[facility] Medications Current Medications MedicationDrug Class(es)DatesSig (Normalized)Sig (Original)benzonatate 100 mg oral capsule (2 sources)Non-narcotic AntitussiveStart: 07-05-2024 End: 99-61-0912exyh 1 capsule by mouth three times daily as needed for cough benzonatate (Tessalon) 100 MG capsule TAKE 1 CAPSULE BY MOUTH 3 TIMES A DAY NEEDED FOR COUGH 07/05/2024 08/22/2024 Discontinuedbrompheniramine maleate 0.4 mg/ml / dextromethorphan hydrobromide 2 mg/ml / pseudoephedrine hydrochloride 6 mg/ml oral solution (4 sources)alpha-Adrenergic Agonist, Uncompetitive U-bceczd-K-aspartate Receptor Antagonist, Sigma-1 AgonistStart: 09-11-2024 End: 21-09-4432jeun 5 mL by mouth four times daily as needed for congestion qjhxgcrjsbrxvux-vfaaaushdxgyaqq-NW 30-2-10 MG/5ML syrup Indications: Viral URI Take 5 mL by mouth 4(four) times a day as needed for congestion for up to 10 days 120 mL 09/11/2024 09/26/2024 Discontinued (Discontinued by another clinician)cephalexin 500 mg oral capsule (2 sources)Cephalosporin AntibacterialStart: 05-22-2024 End: 34-47-4293pvbp 1 capsule by mouth in the morning, then take 1 capsule by mouth in the evening, then take 1 capsule by mouth at bedtimecephalexin (Keflex) 500 MG capsule Indications: Paronychia of great toe of right foot Take 1 capsule (500 mg) by mouth in the morning and 1 capsule (500 mg) in the evening and 1 capsule (500 mg) before bedtime. Do all this for 10 days. 30 capsule 05/22/2024 06/01/2024 ActiveCVS Allergy Relief D 5-120 MG 12 hr tablet (2 sources)Start: 07-05-2024 End: 28-58-6483jupi 5-120 mg by mouth every twelve hours as neededCVS Allergy Relief D 5-120 MG 12 hr tablet TAKE 1 TAB ORALLY EVERY 12 HOURS NEEDED FOR NASAL CONGESTION 07/05/2024 08/22/2024 Discontinuedibuprofen 200 mg oral tablet (2 sources)Nonsteroidal Anti-inflammatory Drug End: 21-57-9968wfyt 1 tablet by mouth every six hours as neededibuprofen 200 MG tablet Take 200 mg by mouth every 6 (six) hours if needed 08/22/2024 DiscontinuedNirmatrelvir-Ritonavir (Paxlovid) 300 mg (150 mg x 2)-100 mg tablets,dose pack (6 sources)Start: 66-98-0379Ezvnyfsoxvoz-Ritonavir (Paxlovid) 300 mg (150 mg x 2)-100 mg tablets,dose pack Active 0 PO .BWMYTOY90 February 02, 2024 12:00am take TWO 150 mg tablets of nirmatrelvir with ONE 100 mg tablet of ritonavir twice daily for 5 days POStart: 02-02-2024 End: 48-30-5067Eyfvxrdrxnga-Ritonavir (Paxlovid) 300 mg (150 mg x 2)-100 mg tablets,dose pack Discontinued 0 PO .COMPLEX February 02, 2024 12:00am February 02, 2024 6:58pm take TWO 150 mg tablets of nirmatrelvir with ONE 100 mg tablet of ritonavir twice daily for 5 days POnitrofurantoin, macrocrystals 25 mg / nitrofurantoin, monohydrate 75 mg oral capsule (2 sources)Nitrofuran AntibacterialStart: 62-52-1714jfez 1 capsule by mouth every twelve hours at mealtimeNo Name (No Known Home Meds) (1 source)Start: 43-04-1944Qx Name (No Known Home Meds) Active February 10, 2025 12:00amPaxlovid, 300/100, 20 x 150 MG & 10 x 100MG tablet therapy pack (2 sources)Start: 02-02-2024 End: 34-21-5602Itgxjeyt, 300/100, 20 x 150 MG & 10 x 100MG tablet therapy pack TAKE 3 TABLETS TOGETHER (TWO 150 MG NIRMATRELVIR TABLETS AND ONE 100 MG RITONAVIR TABLET) BY MOUTH TWICE DAILY FOR 5 DAYS. 02/02/2024 08/22/2024 Discontinuedphenazopyridine hydrochloride 200 mg oral tablet (3 sources)Start: 14-55-0796duhq 1 tablet by mouth three times daily as needed for painsulfamethoxazole 800 mg / trimethoprim 160 mg oral tablet (3 sources)Dihydrofolate Reductase Inhibitor Antibacterial, Sulfonamide AntimicrobialStart: 23-47-4494qmos 1 tablet by mouth every twelve hours Completed/Discontinued Medications MedicationDrug Class(es)DatesSig (Normalized)Sig (Original)acetaminophen 325 mg / HYDROcodone bitartrate 5 mg oral tablet (8 sources)Opioid AgonistStart: 02-11-2019 End: 14-37-1274bqti 1 tablet by mouth every four to six hours as needed for pain Hydrocodone-Acetaminophen ([place]) 5-325 mg Tablet Discontinued 1 TAB PO EVERY 4- 6 HOURS as needed for Pain 7 3 February 11, 2019 12:00am February 02, 2024 6:33pmciclopirox 80 mg/ml topical solution (4 sources)Start: 05-22-2024 End: 97-18-0944amzoeazmyk ([place]) 8 % solution Indications: Toenail fungus Apply topically at bedtime 6 mL 05/22/2024 08/15/2024 Discontinuedfluticasone propionate 0.05 mg/actuat metered dose nasal spray (10 sources)CorticosteroidStart: 02-08-2023 End: 13-96-2766zeiw 1-2 spray(s) nasal route once daily as neededfluticasone (Flonase) 50 MCG/ACT nasal spray Indications: Allergic rhinitis, unspecified seasonality, unspecified trigger USE 1 - 2 SPRAYS IN EACH NOSTRIL ONCE A DAY NEEDED 48 mL 1 02/08/2023 05/22/2024 Discontinuednaproxen 500 mg oral tablet (8 sources)Nonsteroidal Anti-inflammatory DrugStart: 02-11-2019 End: 01-85-3623qmph 1 tablet by mouth every twelve hours at mealtimeNaproxen (Naprosyn) 500 mg Tablet Discontinued 500 MG PO Q12H February 11, 2019 12:00am February 02, 2024 6:33pm administer with food or milk Nirmatrelvir-Ritonavir (8 sources)Start: 02-02-2024 End: 75-37-4933Byohhzyrrnks-Ritonavir (Paxlovid) 300 mg (150 mg x 2)-100 mg tablets,dose pack Discontinued 0 PO .COMPLEX February 02, 2024 12:00am February 02, 2024 6:58pm take TWO 150 mg tablets of nirmatrelvir with ONE 100 mg tablet of ritonavir twice daily for 5 days POStart: 02-02-2024 End: 88-62-0831Fqcukcolqghc-Ritonavir (Paxlovid) 300 mg (150 mg x 2)-100 mg tablets,dose pack Discontinued 0 PO .COMPLEX February 02, 2024 12:00am February 10, 2025 12:41pm take TWO 150 mg tablets of nirmatrelvir with ONE 100 mg tablet of ritonavir twice daily for 5 days POondansetron 4 mg disintegrating oral tablet (8 sources)Serotonin-3 Receptor AntagonistStart: 02-11-2019 End: 11-65-4815Ddjlfsmdzyj 4 mg Tablet,Disintegrating Discontinued 4 MG PO every 6 to 8 hours as needed for Fzxeue45 February 11, 2019 12:00am February 02, 2024 6:33pmtamsulosin hydrochloride 0.4 mg oral capsule (8 sources)alpha-Adrenergic BlockerStart: 02-11-2019 End: 22-11-5934xczn 1 capsule by mouth once dailyTamsulosin (Flomax) 0.4 mg capsule Discontinued 0.4 MG PO Daily February 11, 2019 12:00am February 02, 2024 6:32pm Problems Active Problems Problem ClassificationProblemDateDocumented DateEpisodic/ChronicCalculus of urinary tract (15 sources)Ureteric stone; Translations: [Kidney stone]1989Jfmqshpb Comment on above:Problem List clean-up per request of Phys. EHR CmteCoagulation and hemorrhagic disorders (20 sources)Thrombocytopenic disorder; Translations: [Thrombocytopenia, unspecified]Onset: 954303-87-5461MmqrjqeSopklocruowqm symptoms and ill- defined conditions (2 sources)Dysuria; Translations: [Dysuria]Onset: 487165-46-0096Jogvaokp Immunizations and screening for infectious disease (3 sources)Encounter for screening for human papillomavirus (HPV); Translations: [Contact with or exposure to other viral diseases]Onset: 137265-45-7702 EpisodicMenstrual disorders (20 sources)Excessive and frequent menstruation with regular cycle; Translations: [Menorrhagia]Onset: 79-37-3331LjcovhfLwyablq (2 sources)Onychomycosis of toenails; Translations: [Tinea unguium]05-22-2024 EpisodicOther connective tissue disease (2 sources)Pain in right foot; Translations: [Pain in right foot]09-26-2024 EpisodicOther female genital disorders (1 source)Pain in female genitalia on intercourse; Translations: [Unspecified dyspareunia]27-48-6499LoovwyiCpycb female genital disorders (1 source)Pain in female pelvis; Translations: [Pelvic pain in female]03-12-2025 EpisodicOther liver diseases (5 sources)Liver disease, unspecified; Translations: [LIVER DISEASE UNSPECIFIED] Onset: 98-76-9702LcrniicKmznp liver diseases (20 sources)Lesion of liver; Translations: [Liver disease, unspecified]Onset: 407584-27-8166WbiyaktTjhpj lower respiratory disease (2 sources)Cough; Translations: [Cough, unspecified type]29-45-3907PrmvqfabIokgw nutritional; endocrine; and metabolic disorders (20 sources)Obesity; Translations: [Obesity, unspecified]Onset: 02-08-2023 89-69-5500KcfzgtySwhyx screening for suspected conditions (not mental disorders or infectious disease) (7 sources)Encounter for screening for malignant neoplasm of cervix; Translations: [Encounter for screening for dental disorders]Onset: 08-25-2021 EpisodicOther skin disorders (2 sources)Ingrowing toenail; Translations: [Ingrowing nail]97-41-1408Otnbtxgd Other upper respiratory infections (20 sources)Sinusitis; Translations: [Chronic sinusitis, unspecified]Onset: 116174-74-5762KcewnjrTonbf upper respiratory infections (11 sources)Pharyngitis; Translations: [Acute pharyngitis, unspecified] 71-63-6576MmebppmrZwjxikf on above:Problem List clean-up per request of Phys. EHR CmteResidual codes; unclassified (2 sources)History of endometrial ablation; Translations: [Other specified postprocedural states]36-28-8970LbhxyirsLfmr and subcutaneous tissue infections (4 sources)Paronychia of toe of right foot; Translations: [Cellulitis of right toe]81-02-3200ShuvxslhBrqbczxsjxdw (1 source)CONTACT W/AND (SUSP) EXPOS COVID-19; Translations: [CONTACT W/AND (SUSP) EXPOS COVID-19]Onset: 96-01-7048Lnohwixqdlsq (2 sources)Pain in pelvis; Translations: [Pain in pelvis]Onset: 02-08-2023 17-26-8567Cxapxxk tract infections (4 sources)Acute urinary tract infection; Translations: [Urinary tract infection, site not specified]01-30-9174Wuolmihl Past or Other Problems Problem ClassificationProblemDateDocumented DateEpisodic/ChronicAbdominal pain (20 sources)Pelvic and perineal pain; Translations: [Unspecified abdominal pain] Onset: 761153-52-6661OwxccssyWnqcli of cervix (20 sources)Cervicovaginal cytology: Low grade squamous intraepithelial lesion; Translations: [Low grade squamous intraepithelial lesion on cytologic smear of cervix (LGSIL)]Onset: 252081-26-2115XoyrmblyTzbloitzcufkm and procreative management (1 source)Tubal ligation status; Translations: [TUBAL LIGATION STATUS]Onset: 42-82-6904FsstpumxBxzrsodd of upper limb (13 sources)Fracture of distal end of radius; Translations: [Unspecified fracture of the lower end of unspecified radius, initial encounter for closed fracture]Onset: 993426-31-8904TanzrevwHngcpr and vomiting (4 sources)Nausea with vomiting, unspecified; Translations: [NAUSEA WITH VOMITING UNSPECIFIED]Onset: 12-29-3614QpfaetujXfwxlhoadqqcv gastroenteritis (1 source)Noninfective gastroenteritis and colitis, unspecified; Translations: [NONINFECTIVE GE AND COLITIS UNS]Onset: 37-19-4082YeltlticTgllohpa codes; unclassified (1 source)Acquired absence of other specified parts of digestive tract; Translations: [ACQ ABSENCE OTH PART DIGESTV TRACT]Onset: 88-76-7904Ugafhtvo Screening and history of mental health and substance abuse codes (1 source)Personal history of nicotine dependence; Translations: [PERSONAL HISTORY OF NICOTINE DEPEND]Onset: 33-08-3588BfawplqiDdilbvprmegk (1 source)SRP (chief complaint)Onset: 84-71-1935Hjwge infection (20 sources)Disease caused by 2019-nCoV; Translations: [COVID-19]Onset: 193228-28-4007Byltsshf Results Test NameValueInterpretationReference RangeFacilityHCG ( test) Ql (U)on 86-66-4422Zzzoqejlfwmtji and review of laboratory resultsNormalNOMS Healthcare Preg Test, UrNegativeNegativeNOMS HealthcareNOOR HealthcareLaboratory - Chemistry and Chemistry - challengeOrdered By: Tania Dove on 02-10-2025 Bilirubin Ql (U)NegativeMckitrick HospitalGlucose (U) [Mass/Vol] NegativeMckitrick HospitalKetones Ql (U)NegativeMckitrick HospitalpH (U)6.0 [pH]Flower Hospitalpecific gravity (U) [Rel density]>=1.030Mckitrick HospitalUrobilinogen (U) [Mass/Vol]0.2 mg/dLMckitrick HospitalLaboratory - Specimen informationOrdered By: Tania Dove on 35-75-6347Fxseemwvqz (U)cloudyMckitrick HospitalColor (U)yellowMckitrick Hospital Laboratory - UrinalysisOrdered By: Tania Dove on 19-66-1458Nlsppquug esterase Test strip Ql (U)smallMckitrick HospitalNitrite Ql (U)Negative Mckitrick HospitalProtein Ql (U)100Mckitrick HospitalNo Panel InformationOrdered By: Tania Dove on 49-53-2446Kgwpi Occult Bloodtrace-intactMckitrick HospitalUrine Cultureon 02-10-2025 Bacteria identified Cx Nom (U)ORGANISM: Escherichia coli (MDRO) (O:ESCCOLMDRO) Stanley Count >100,000 * This is a corrected result. * A prior result that was reported as final has been changed. MDRO added to Escherichia coli Aerobic GRETCHEN Charge (NMIC56) SUSCEPTIBILITY ORGANISM: O:ESCCOLMDRO ANTIBIOTIC INTERPRETATION GRETCHEN Amikacin S <16 Amoxacillin/K Clavulanate S <8 Ampicillin R >16 Ampicillin/Sulbactam I 1616/8 Aztreonam S <4 Cefazolin S 4 Cefepime S <2 Ceftazidime S <1 Ceftazidime/Avibactam S <4 Ceftolozane/Tazobactam S <2 Ceftriaxone S <1 Cefuroxime S <4 Ciprofloxacin S <0.25 Ertapenem S <0.5 Gentamicin S <2 Levofloxacin S <0.5 Meropenem S <1 Meropenem/Vaborbactam S <2 Nitrofurantoin S <32 Piperacillin/Tazobactam S <8 Tetracycline R >8 Tigecycline S <2 Tobramycin S <2 Trimethoprim/Sulfamethoxazole R >2 S = SUSCEPTIBLE I = INTERMEDIATE R = RESISTANT BLANK = DATA NOT AVAILABLE, OR DRUG NOT ADVISABLE OR TESTED R* = RESISTANCE DUE TO EXTENDED SPECTRUM BETA-LACTAMASES ESBL = EXTENDED SPECTRUM BETA-LACTAMASE TFG = THYMIDINE-DEPENDENT STRAIN ELIZABETH = BETA-LACTAMASE POSITIVE IB = INDUCIBLE BETA-LACTAMASE. APPEARS IN PLACE OF 'S' WITH SPECIES KNOWN TO POSSESS INDUCIBLE BETA-LACTAMASES. POTENTIALLY THEY MAY BECOME RESISTANT TO ALL B-LACTAM DRUGS. PERFORMED BY: [place] [address] PATHOLOGIST TRANSFORMER REPAIRER DARIN CADENA M.D.[facility] Physician GroupComment on above: Performed By: #### CUU #### [place] [address] USAUrine cultureOrdered By: Tania Dove on 02-10-2025 Bacteria identified Cx Nom (U)Escherichia coli (MDRO)AbnormalMckitrick HospitalUPPER RESPIRATORY CULTUREon 96-79-7294CWPVY RESPIRATORY CULTURE Upper Respiratory Culture NOMS HealthcareUPPER RESPIRATORY CULTURERoutine respiratory floraNOOR Healthcare UPPER RESPIRATORY CULTUREPerformed at: - [facility] JohnstownUPPER RESPIRATORY [address] [place], [place] [id number] County [facility] RESPIRATORY CULTURELab Director: Anatoliy Argueta PhD, Phone: [phone] Joseph Health CenterCLINISYNMARTHA'S [facility] HealthcareLaboratory - Microbiology and Antimicrobial susceptibilityon 75-02-8319WBZI-CoV-2 (COVID-19) RNA DANIELLE+probe Ql (Unsp spec) NegativeNOMS HealthcareNo Panel Informationon 00-85-8002JBK ANegativeNOMS HealthcareFLU BNegativeNOMS HealthcareInterpretation and review of laboratory resultsNormalNOMS HealthcareNOMS HealthcarePathology study report document Ordered By: Tripp Gu on 13-69-9011Rwfistleh studyMckitrick Hospital Other Lon 09-05-2024L Specimen: [id number] Received: 09/06/24 Status: LUCIAN Cuellar Num: [id number] Spec Type: Surgical Subm Dr: Jaxson Gonzales Tissues: A Endocervix - Curettings (ENDOCERVICAL CURETTINGS) Procedures: HE/2, Gross/Micro L4, Ki-67, CINtec p16 Age/ Patient Sex Location Account Attending Physician Farzaneh Marvin 33/F [facility] [id number] Jaxson Gonzales SPEC NUM: [id number] RECD: 09/06/24 STATUS: LUCIAN MELGOZAToo NUM: [id number] PERFECTO: 09/05/[address] [facility] [address]: Jaxson Gonzales ENTERED: 09/06/24 [facility] DR: [place],Lab SPEC TYPE: Surgical DEPT: [facility] ENTERED BY: [id number] RECV BY: [id number] ORDERED: HE/2, Gross/Micro L4, Ki-67, CINtec p16 [...] submitted in a single cassette. (1, ns, [id number]) GREG Specimen: [id number] Received: 09/06/24 Status: LUCIAN Melgozatoo Num: [id number] Spec Type: Surgical Subm Dr: Jaxson Gonzales Tissues: A Endocervix - Curettings (ENDOCERVICAL CURETTINGS) Procedures: HE/2, Gross/Micro L4, Ki-67, CINtec p16 Patient: YonFarzaneh [id number] (Continued) Specimen: [id number] Received: 09/06/24 (Continued) Signed (signature on file) Tripp Gu MD 09/08/24 1050 Specimen: [id number] Received: 09/06/24 Status: LUCIAN Cuellar Num: [id number] Spec Type: Surgical Subm Dr: Jaxson Gonzales Tissues: A Endocervix - Curettings (ENDOCERVICAL CURETTINGS) Procedures: HE/2, Gross/Micro L4, Ki-67, CINtec p16 Patient: Farzaneh Marvin [id number] (Continued) Specimen: [id number] Received: 09/06/24 (Continued) Microscopic Description Microscopic examination is performed. CPT Codes 50309, 34729, 72859 Specimen: [id number] Received: 09/06/24 Status: LUCIAN Cuellar Num: [id number] Spec Type: Surgical Subm Dr: Jaxson Gonzales Tissues: A Endocervix - Curettings (ENDOCERVICAL CURETTINGS) Procedures: HE/2, Gross/Micro L4, Ki-67, CINtec p16 Patient: Farzaneh Marvin [id number] (Continued) Signed (signature on file) Tripp Gu MD 09/08/24 1050Normal [facility] Physician GroupIG,APTIMA HPV,AGE GDLNon 99-64-6534DQY LN ACOG TESTINGNote.NOMS HealthcareComment on above:TESTS RESULT FLAG UNITS REF RANGE LAB Clinician Provided Cytology Information Source.............Cervix;Endocervix No. of containers..01 ThinPrep Vial Age Geo ABHINAV Paula... FLAG LEGEND: L-Low Normal,H-High Normal,LL-Alert Low,HH-Alert High <-Panic Low,>-Panic High,A-Abnormal,AA-Critical Abnormal Performed at: 01 =[address] [place] [address] Wendy Kumar MD, HPV APTIMAPositiveAbnormalNegativeNOMS HealthcareComment on above:This nucleic acid amplification test detects fourteen high- risk HPV types (16,18,31,33,35,39,45,51,52,56,58,59,66,68) without differentiation. Performed at: = - [facility], [place] [id number] Acute Dialysis Nurse: Wendy Kumar MD, Phone: [phone] Performed at: [address] [id number] Acute Dialysis Nurse: Wendy Kumar MD, Phone: [phone] IGP, APTIMA HPV, RFX 16/18,45NoteAbnormal.NOMS HealthcareComment on above:TESTS RESULT FLAG UNITS REF RANGE LAB DIAGNOSIS: [A] 02 EPITHELIAL CELL ABNORMALITY. LOW GRADE SQUAMOUS INTRAEPITHELIAL LESION (LSIL). Recommendation: [A] 02 Suggest follow up as clinically appropriate. Specimen adequacy: 02 Satisfactory for evaluation. Endocervical and/or squamous metaplastic cells (endocervical component) are present. Performed by: 03 No Deshpande, Stuffed Casing Tier (ASCP) Electronically si... 02 Wendy Kumar MD, Pathologist [...] High,A-Abnormal,AA-Critical Abnormal Performed at: 02 [address] [facility] [address] [address] Wendy Kumar MD, 03 KWCYT [facility] [place] [facility] [address] [place] [address] Juaquin Calderon MD, Interpretation and review of laboratory resultsAbnormalNOMS Healthcare BRUSH-SPATULA CERVIX ENDOCERVIX CLINISYNCNOMS HealthcareHCG ( test) Ql (U)on 97-28-7249Cqopkuiusdpkrb and review of laboratory resultsNormalNOMS HealthcarePreg Test, UrNegative NegativeNOMS HealthcareNOMS HealthcareBasic Metabolic Brand w/Rfx A1Con 08-14-2024 Anion gap [Moles/Vol]10.7 mmol/LNormal6.0-15.0The [facility] Comment on above:Performed By: #### EBS LIPID, EMP BMP #### [facility] [address] [place] [address] USACalcium [Mass/Vol]9.8 mg/dLNormal8.6-10.3The [facility] Physician GroupComment on above:Performed By: #### EBS LIPID, EMP BMP #### [facility] [address] [place] [address] USAChloride [Moles/Vol]103 mmol/RCzwylh93-172Kpv [facility] Physician GroupComment on above:Performed By: #### EBS LIPID, EMP BMP #### [facility] [address] [place] [address] USACO2 [Moles/Vol]29.5 mmol/LPxbmzd69.0-31.0The [facility] Physician GroupComment on above:Performed By: #### EBS LIPID, EMP BMP #### [facility] [address] [place] [address] USACreatinine [Mass/Vol]0.73 mg/dLNormal0.60-1.20The [facility] Physician GroupComment on above:Performed By: #### EBS LIPID, EMP BMP #### [facility] [address] [place] [address] USAGFR/1.73 sq M.predicted MDRD (S/P/Bld) [Vol rate/Area] mL/min/{1.73_m2}NormalThe [facility] Physician GroupComment on above:Performed By: #### EBS LIPID, EMP BMP #### [facility] [address] [place] [address] USAGlucose [Mass/Vol]85 mg/qWImoyof18-657Dgp [facility] Physician GroupComment on above:Performed By: #### EBS LIPID, EMP BMP #### [facility] [address] [place] [address] USAPotassium [Moles/Vol]4.2 mmol/LNormal3.5-5.1The [facility] Physician GroupComment on above:Performed By: #### EBS LIPID, EMP BMP #### [facility] [address] [place] [address] USASodium [Moles/Vol]139 mmol/GZzdfwq482-762Nbr [facility] Physician GroupComment on above:Performed By: #### EBS LIPID, EMP BMP #### [facility] [address] [place] [address] USAUrea nitrogen [Mass/Vol]10 mg/dLNormal7-25The [facility] Physician GroupComment on above:Performed By: #### EBS LIPID, EMP BMP #### [facility] [address] [place] [address] USACalcium [Mass/volume] in Serum or PlasmaOrdered By: Wes John on 40-60-3908Uyxlbae [Mass/Vol]Calcium [Mass/volume] in Serum or Plasma 8.6-10.3FAdams County HospitalCarbon dioxide, total [Moles/volume] in Serum or PlasmaOrdered By: Wes John on 19-63-7073WX0 [Moles/Vol]Carbon dioxide, total [Moles/volume] in Serum or Xrqlnv68.0-31.0Mckitrick HospitalChloride [Moles/volume] in Serum or PlasmaOrdered By: Wes John on 31-96-8494Ootfskeg [Moles/Vol]Chloride [Moles/volume] in Serum or Emkwlx81-768QstnujdazMckitrick HospitalCholesterol [Mass/volume] in Serum or PlasmaOrdered By: Wes John on 68-80-0562Xtfwbyfwdjr [Mass/Vol] Cholesterol [Mass/volume] in Serum or Xtpvve084-992NsvswcziuMckitrick HospitalComment on above:Chol less than 200 mg/dl low riskChol 201-239 mg/dl borderline riskChol 240 mg/dl and greater high riskCholesterol in HDL [Mass/volume] in Serum or PlasmaOrdered By: Wes John on 08-14-2024 Cholesterol in HDL [Mass/Vol]Serum or plasma high density lipoprotein (HDL) cholesterol peucyrabyqi47-96HyjmfvmvjMckitrick HospitalComment on above: HDL CHOL ATP-III CLASSIFICATION Cardiovascular RiskHDL > or equal to 60 mg/dL LOWHDL < 40 mg/dL HIGHCholesterol in LDL Calc [Mass/Vol]Ordered By: Wes John on 00-16-8602Bqmgdosygbj in LDL [Mass/Vol]Cholesterol in LDL [Mass/volume] in Serum or Plasma by calculationHigh0-100Mckitrick HospitalComment on above:LDL ATP III CLASSIFICATIONLDL less than 100 mg/dL OptimalLDL 100-129 mg/dL Near or above lcselitCHW470-631 mg/dL Borderline highLDL 160-189 mg/dL HighLDL greater than 189 mg/dL Very highCholesterol in VLDL Calc [Mass/Vol]Ordered By: Wes John on 32-10-4726Udnrtgggjsa in VLDL [Mass/Vol]Cholesterol in VLDL [Mass/volume] in Serum or Plasma by calculation [facility] CenterCreatinine [Mass/volume] in Serum or Plasma Ordered By: Wes John on 21-37-5327Xvrrpmohzf [Mass/Vol]Creatinine [Mass/volume] in Serum or Plasma0.60-1.20[facility] Glucose [Mass/volume] in Serum or PlasmaOrdered By: Wes John on 08-14-2024 Glucose [Mass/Vol]Glucose [Mass/volume] in Serum or Ixvrdx58-377ZkymgzosgMckitrick HospitalLipid Profileon 61-44-1035Yvwrtkjeevd [Mass/Vol]194 mg/dL Tpfvxu357-279Jcc [facility] Physician GroupComment on above:Result Comment: Chol less than 200 mg/dl low risk Chol 201-239 mg/dl borderline risk Chol 240 mg/dl and greater high riskPerformed By: #### EBS LIPID, EMP BMP #### [facility] [address] [place] [address] USACholesterol in HDL [Mass/Vol]54 mg/pMAxyjzo36-51Sqv [facility] Physician GroupComment on above:Result Comment: HDL CHOL ATP-III CLASSIFICATION Cardiovascular Risk HDL > or equal to 60 mg/dL LOW HDL < 40 mg/dL HIGHPerformed By: #### EBS LIPID, EMP BMP #### [facility] [address] [place] [address] USACholesterol.total/Cholesterol in HDL [Mass ratio]3.6 {ratio}Normal<5.0The Pennsylvania HospitalComment on above:Result Comment: PERFORMED BY: [place] [address] PATHOLOGIST TRANSFORMER REPAIRER CHARITY MENDIETA M.D.Performed By: #### EBS LIPID, EMP BMP #### [facility] [address] [place] [address] [place]ALDL Cholesterol,Ihnrfbkrxb720 mg/dLHigh0-100The [facility] Physician GroupComment on above:Result Comment: LDL ATP III CLASSIFICATION LDL less than 100 mg/dL Optimal LDL 100-129 mg/dL Near or above optimal LDL 130-159 mg/dL Borderline high LDL 160-189 mg/dL High LDL greater than 189 mg/dL Very highPerformed By: #### EBS LIPID, EMP BMP #### [facility] [address] [place] [id number] USATriglyceride w/Qeaoqw370 mg/dLNormal0-149[facility] Physician GroupComment on above:Result Comment: TRIG ATP III CLASSIFICATION TRIG less than 150 mg/dL Normal TRIG 150-199 mg/dL Borderline high TRIG 200-500 mg/dL High TRIG greater than 500 mg/dL Very high Standard traceable to the Center for Disease Conrtrol and Prevention (CDC) test method.Performed By: #### EBS LIPID, EMP BMP #### [facility] [address] [place] [id number] USAVLDL UMPGFZTMPBT20 mg/dLNormBaptist Health Baptist Hospital of Miami Physician GroupComment on above:Performed By: #### EBS LIPID, EMP BMP #### [facility] [address] [place] [id number] USANo Panel InformationOrdered By: Wes John on 02-96-6895Dderhnysr GFR (CKD-EPI)> 60.0 mL/MinMckitrick Hospital Pharmacy Creatinine Clearance (ChemN/[facility] for RehabilitationPotassium [Moles/volume] in Serum or PlasmaOrdered By: Wes John on 08-14-2024 Potassium [Moles/Vol]Potassium [Moles/volume] in Serum or Plasma3.5-5.1FSt. Francis Hospitalerum or plasma anion gap determinationOrdered By: Wes John on 06-67-1571Gwrye gap [Moles/Vol]Serum or plasma anion gap determination6.0-15.0Flower Hospitalerum or plasma total cholesterol/high density lipoprotein (HDL) cholesterol mass ratOrdered By: Wes John on 68-23-1017Hivpkiyyqyb.total/Cholesterol in HDL [Mass ratio] Serum or plasma total cholesterol/high density lipoprotein (HDL) cholesterol mass rat<5.0Flower Hospitalodium [Moles/volume] in Serum or PlasmaOrdered By: Wes John on 21-93-0224Frxaqb [Moles/Vol]Sodium [Moles/volume] in Serum or Bdvqda971-497QklrodtpqMckitrick Hospital Triglyceride [Mass/volume] in Serum or PlasmaOrdered By: Wes John on 07-25-6858Xevjfxjrmzgs [Mass/Vol]Triglyceride [Mass/volume] in Serum or Plasma 0-149Mckitrick HospitalComment on above:TRIG ATP III CLASSIFICATIONTRIG less than 150 mg/dL NormalTRIG 150-199 mg/dL Borderline highTRIG 200-500 mg/dL High TRIG greater than 500 mg/dL Very highStandard traceable to the Center for Disease Conrtrol and Prevention (CDC) test method. Urea nitrogen [Mass/volume] in Serum or PlasmaOrdered By: Wes John on 76-60-0450Qdom nitrogen [Mass/Vol]Urea nitrogen [Mass/volume] in Serum or Plasma 12-15Mckitrick HospitalNo Panel InformationOrdered By: Hilaria Shell on 12-68-1112Edrkd Strep (POC)Mckitrick HospitalCBC AUTO DIFFon 31-42-5138AELY #0.0 103/ulNormal0.0-0.1The [facility] Medical CenterComment on above: Performed By: #### CBC #### [facility] [address] [place] [address] Dr. Cain McwilliamsBasophils/100 WBC (Bld)0.4 %Normal0.2-2.0[facility] Comment on above:Performed By: #### CBC #### [facility] [address] [place] [address] Dr. Cain Jaramillo #0.1 103/ulNormal0.0-0.7The [facility] Medical CenterComment on above: Performed By: #### CBC #### [facility] [address] [place] [address] Dr. Cain Ramseyosinophils/100 WBC (Bld)2.0 %Normal0.9-7.0[facility] Comment on above:Performed By: #### CBC #### [facility] [address] [place] [address] Dr. Cain Ramseyrythrocyte distribution width (RBC) [Ratio]12.8 %Idrfkc95.0-15.0 [facility] HospitalComment on above:Performed By: #### CBC #### [facility] [address] [place] [address] Dr. Cain McwilliamsHematocrit (Bld) [Volume fraction]40.6 %Yveygp53.0-48.0The [facility] Medical CenterComment on above:Performed By: #### CBC #### [facility] [address] [place] [address] Dr. Cain McwilliamsHemoglobin (Bld) [Mass/Vol]14.1 g/mHDcucnq45.0-16.0The [facility] CenterComment on above:Performed By: #### CBC #### [facility] [address] [place] [address] Dr. Cain Lal #0.01 10e3/ulNormal0.00-0.03The [facility] Medical CenterComment on above:Performed By: #### CBC #### [facility] [address] [place] [address] Dr. Cain Lal %0.2 %Normal0.0-0.5The [facility] Medical CenterComment on above: Performed By: #### CBC #### [facility] [address] [place] [address] Dr. Cain Tafoya #1.1 103/ulCritically low1.2-3.8The [facility] Comment on above:Performed By: #### CBC #### [facility] [address] [place] [address] Dr. Cain Vernonmphocytes/100 WBC (Bld)24.6 %Rrxlwl56.5-60.0The [facility] Medical CenterComment on above:Performed By: #### CBC #### [facility] [address] [place] [address] Dr. Cain MaciasUAL DIFF REQNONormalThe [facility] Medical CenterComment on above: Performed By: #### CBC #### [facility] [address] [place] [address] Dr. Cain Cooper (RBC) [Entitic mass]30.1 qqVdqzkm39.7-34.0The [facility] Medical CenterComment on above:Performed By: #### CBC #### [facility] [address] [place] [address] Dr. Cain KnoxHC (RBC) [Mass/Vol]34.7 g/zUYxrtrn56.9-35.2The [facility] CenterComment on above:Performed By: #### CBC #### [facility] [address] [place] [address] Dr. Cain KnoxV (RBC) [Entitic vol]86.8 bJVcjdqi92.0-99.0The [facility] Medical CenterComment on above:Performed By: #### CBC #### [facility] [address] [place] [address] Dr. Cain Obrien #0.3 103/ulNormal0.3-0.8The [facility] CenterComment on above:Performed By: #### CBC #### [facility] [address] [place] [address] Dr. Cain Davisocytes/100 WBC (Bld)6.5 %Normal1.7-12.0The [facility] Comment on above:Performed By: #### CBC #### [facility] [address] [place] [address] Dr. Cain Topete #3.1 103/ulNormal1.4-6.5The [facility] CenterComment on above:Performed By: #### CBC #### [facility] [address] [place] [address] Dr. Cain Shenutrophils/100 WBC (Bld)66.3 %Xlxfze81.0-75.0The [facility] Medical CenterComment on above:Performed By: #### CBC #### [facility] [address] [place] [address] Dr. Cain Doranteslet mean volume (Bld) [Entitic vol]10.9 fLNormal9.5-13.5The [facility] Medical CenterComment on above:Performed By: #### CBC #### [facility] [address] [place] [address] Dr. Cain ChirinosT141 103/ulCritically ksa905-990Mcb [facility] CenterComment on above:Performed By: #### CBC #### [facility] [address] [address] [address] Cain McwilliamsRBC4.68 106/ulNormal4.20-5.40The [facility] on above:Performed By: #### CBC #### [facility] [address] [place] [address] Dr. Cain McwilliamsWBC4.6 103/ulNormal4.0-11.0The [facility] on above: Performed By: #### CBC #### [facility] [address] [place] [address] Dr. Cain McwilliamsFREE T4on 74-36-6962Wztp T4 [Mass/Vol]0.99 ng/dLNormal0.76-1.46 The [facility] CenterComascension [facility] on above:Performed By: #### FT4 #### [facility] [address] [place] [address] Dr. Cain McwilliamsGLYCOHEMOGLOBIN A1Con 86-08-4095YRP RECOMMENDATIONSEE BELOWSaint Petersburg The [facility] Medical CenterComascension [facility] on above:Result Comment: ADA RECOMMENDED LIMIT 4.0 - 6.0 ADA THERAPEUTIC TARGET < 7.0 ACTION SUGGESTED > 7.0Performed By: #### A1C #### [facility] [address] [place] [address] Dr. Cain McwilliamsGlucose [Mass/Vol]97 mg/dLMercy Hospital on above:Performed By: #### A1C #### [facility] [address] [place] [address] Dr. Cain McwilliamsHbA1c (Bld) [Mass fraction]5.0 %Normal4.5-6.2The [facility] on above:Performed By: #### A1C #### [facility] [address] [place] [address] Dr. Cain McwilliamsPROTIMEon 11-66-1449GXV Coag (PPP) [Relative time]0.95 {INR} NormalKettering Health Main Campus on above:Performed By: #### CBC #### [facility] [address] [place] [address] Dr. Cain cMwilliamsINR GUIDELINESSEE Asht[facility]ula County Medical CenterComment on above:Result Comment: DESIRED INR: 2.0 - 3.0 CONDITIONS NOT LISTED BELOW 2.5 - 3.5 FOR PROSTHETIC HEART VALVE REPLACEMENT 2.5 - 3.5 RECURRENT THROMBOSIS Performed By: #### CBC #### [facility] [address] [place] [address] [address] Cain McwilliamsPT Coag (PPP) [Time]10.1 sNormal9.0-11.6The [facility] Comment on above:Performed By: #### CBC #### [facility] [address] [place] [address] [address] Cain Bahena 80-70-4931lQPS Coag (Bld) [Time]29.4 hVaqntq26.3-36.2The [facility] Medical CenterComment on above:Performed By: #### CBC #### [facility] [address] [place] [address] Dr. Cain Smith 44-16-6855RRA9.596 uIU/mLNormal0.358-3.740The [facility] Medical CenterComment on above:Performed By: #### TSH #### [facility] [address] [place] [address] [address] [address] Cain McwilliamsUS PELVIS AND TRANSVAGon 39-57-9913ZD PELVIS AND TRANSVAG EXAMINATION: US PELVIS AND [...] Electronically authenticated by: MALICK ESPINOZA Date: 2022-06-22 16:47NormalThe [facility] AUTO DIFFon 19-76-0191PQLS #0.0 103/ulNormal0.0-0.1The [facility] Medical CenterComment on above:Performed By: #### CBC #### [facility] [address] [address] [address] Cain McwilliamsBasophils/100 WBC (Bld)0.4 %Normal0.2-2.0[facility] on above:Performed By: #### CBC #### [facility] [address] [address] [address] Cain Jaramillo #0.0 103/ulNormal0.0-0.7The [facility] Medical CenterComment on above: Performed By: #### CBC #### [facility] [address] [place] [address] Dr. Cain Ramseyosinophils/100 WBC (Bld)0.8 %Critically low0.9-7.0The [facility] Medical CenterComment on above:Performed By: #### CBC #### [facility] [address] [address] [address] Cain Ramseyrythrocyte distribution width (RBC) [Ratio]12.8 %Hxqjhm30.0-15.0 The [facility] Medical CenterComment on above:Performed By: #### CBC #### [facility] [address] [address] [address] Cain McwilliamsHematocrit (Bld) [Volume fraction]41.6 %Kzjpmf27.0-48.0The [facility] Medical CenterComment on above:Performed By: #### CBC #### [facility] [address] [place] [address] Dr. Cain McwilliamsHemoglobin (Bld) [Mass/Vol]13.8 g/eYIkonse34.0-16.0[facility] HospitalComment on above:Performed By: #### CBC #### [facility] [address] [place] [address] Dr. Cain Lal #0.01 10e3/ulNormal0.00-0.03The [facility] Medical CenterComment on above:Performed By: #### CBC #### [facility] [address] [place] [address] Dr. Cain Lal %0.2 %Normal0.0-0.5The [facility] Medical CenterComment on above: Performed By: #### CBC #### [facility] [address] [place] [address] Dr. Cain Tafoya #1.3 103/ulNormal1.2-3.8The [facility] Medical CenterComment on above:Performed By: #### CBC #### [facility] [address] [place] [address] Dr. Cain Justicehocytes/100 WBC (Bld)27.1 %Jscweo76.5-60.0The [facility] Medical CenterComment on above:Performed By: #### CBC #### [facility] [address] [place] [address] Dr. Cain Singer DIFF REQNONormalThe [facility] Medical CenterComment on above: Performed By: #### CBC #### [facility] [address] [place] [address] Dr. Cain Cooper (RBC) [Entitic mass]30.5 ueAmgqys99.7-34.0The [facility] Medical CenterComment on above:Performed By: #### CBC #### [facility] [address] [place] [address] Dr. Cain Knox (RBC) [Mass/Vol]33.2 g/zJAbsfxl78.9-35.2The [facility] Medical CenterComment on above:Performed By: #### CBC #### [facility] [address] [place] [address] Dr. Cain Knox (RBC) [Entitic vol]91.8 iJKmgcxu60.0-99.0The [facility] Medical CenterComment on above:Performed By: #### CBC #### [facility] [address] [place] [address] Dr. Cain Obrien #0.3 103/ulNormal0.3-0.8The [facility] Medical CenterComment on above:Performed By: #### CBC #### [facility] [address] [place] [address] Dr. Cain Davisocytes/100 WBC (Bld)6.3 %Normal1.7-12.0The [facility] Comment on above:Performed By: #### CBC #### [facility] [address] [place] [address] Dr. Cain Topete #3.1 103/ulNormal1.4-6.5The [facility] Medical CenterComment on above:Performed By: #### CBC #### [facility] [address] [place] [address] Dr. Cain Shenutrophils/100 WBC (Bld)65.2 %Vnercc87.0-75.0The [facility] Medical CenterComment on above:Performed By: #### CBC #### [facility] [address] [place] [address] Dr. Cain Doranteslet mean volume (Bld) [Entitic vol]11.3 fLNormal9.5-13.5The [facility] CenterComment on above:Performed By: #### CBC #### [facility] [address] [place] [address] Dr. Cain McwilliamsPLT149 103/ulCritically zrh159-816Jls [facility] CenterComment on above:Performed By: #### CBC #### [facility] [address] [place] [address] Dr. Cain ChristyC4.53 106/ulNormal4.20-5.40The [facility] Medical CenterComment on above:Performed By: #### CBC #### [facility] [address] [place] [address] Dr. Cain McwilliamsWBC4.8 103/ulNormal4.0-11.0The [facility] Medical CenterComment on above: Performed By: #### CBC #### [facility] [address] [place] [address] Dr. Cain Cui QUANT HCGon 00-72-0635DJZ QUANT<1NormalMercy Health Fairfield Hospital Comment on above:Performed By: #### CBC #### [facility] [address] [place] [address] Dr. Cain Benoit RANGESEE BELOWMetroHealth Cleveland Heights Medical CenterComment on above: Result Comment: 5-50 0-1 WEEK 40-300 1-2 WEEKS 100-1,000 2-3 WEEKS 500-6,000 3-4 WEEKS 5,000-200,000 1-2 MONTHS 10,000-100,000 2-3 MONTHS 3,000-50,000 2ND TRIMESTER 1,000-50,000 3RD TRIMESTERPerformed By: #### CBC #### [facility] [address] [place] [address] Dr. Cain Mckeon ACOG PANEL 2: 30 to 65on 09-02-2021..NormalThe [facility] Medical CenterComment on above:Result Comment: Performed at: WBPerformed By: #### CBC #### [facility] [address] [place] [address] Dr. Cain Reese Gdln ACOG Hvsyzwk84-74NivfoqZrmMetroHealth Cleveland Heights Medical CenterComment on above:Performed By: #### CBC #### [facility] [address] [place] [address] Dr. Cain McwilliamsDIAGNOSIS:CommentMetroHealth Cleveland Heights Medical CenterComment on above: Result Comment: NEGATIVE FOR INTRAEPITHELIAL LESION OR MALIGNANCY. THIS SPECIMEN WAS RESCREENED PART OF OUR OPERATIONS LIEUTENANT PROGRAM. Performed at: WBPerformed By: #### CBC #### [facility] [address] [place] [address] Dr. Cain McwilliamsHPV AptimaNegativeNormalNegativeMercy Health Fairfield HospitalComascension [facility] on above:Result Comment: This nucleic acid amplification test detects fourteen high-risk HPV types (16,18,31,33,35,39,45,51,52,56,58,59,66,68) without differentiation. Performed at: =GPerformed By: #### CBC #### [facility] [address] [place] [address] Dr. Cain McwilliamsMethodology:CommentNoSt. Elizabeth Hospital on above: Result Comment: This liquid based ThinPrep(R) pap test was screened with the use of an image guided system. Performed at: WBPerformed By: #### CBC #### [facility] [address] [place] [address] Dr. Cain McwilliamsNote:CommentMercy Hospital on above:Result Comment: The Pap smear is a screening test designed to aid in the detection of premalignant and malignant conditions of the uterine cervix. It is not a diagnostic procedure and should not be used as the sole means of detecting cervical cancer. Both false-positive and false-negative reports do occur. . Performed at: WBPerformed By: #### CBC #### [facility] [address] [place] [address] Dr. Cain McwilliamsPerformed by:CommentMercy Hospital on above: Result Comment: Sasha Odonnell, Stuffed Casing Tier (ASCP) Performed at: WBPerformed By: #### CBC #### [facility] [address] [place] [address] Dr. Cain McwilliamsQC reviewed by:[facility] on above:Result Comment: Shu Silver, Supervisory Stuffed Casing Tier (ASCP) Performed at: WBPerformed By: #### CBC #### [place] [address] Dr[address] Cain McwilliamsSpecimen adequacy:[facility] on above:Result Comment: Satisfactory for evaluation. Endocervical and/or squamous metaplastic cells (endocervical component) are present. Performed at: WBPerformed By: #### CBC #### [facility] [address] [place] [address] Dr. Cain McwilliamsUS PELVIS AND TRANSVAGon [id number] PELVIS AND TRANSVAG EXAMINATION: US PELVIS AND [...] Electronically authenticated by: MALICK ESPINOZA Date: 2021-08-30 10:29[facility] Medical CenterUS SINGLE QUAD RT UPPERon [id number] SINGLE QUAD RT UPPER EXAMINATION: US SINGLE [...] Electronically authenticated by: MALICK ESPINOZA Date: 2021-08-30 10:31[facility] W MANUAL DIFFon [id number] LYMPH #NormalThe [facility] Medical CenterComment on above:Performed By: #### MARU #### [facility] [address] [place] [address] Dr. Cain McwilliamsATYPICAL LYMPH %NormalThe [facility] Medical CenterComment on above: Performed By: #### MARU #### [facility] [address] [address] DrSantana Henderson #0.2 103/ulNormal0.0-0.3The [facility] HospitalComment on above:Performed By: #### CBCISMAEL #### [facility] [address] [place] [address] Dr. Cain Henderson %3 %Normal0-5The [facility] HospitalComment on above:Performed By: #### MARU #### [facility] [address] [address] [address] Cain Bai #0.00 103/ulNormal0.00-0.10The [facility] HospitalComment on above:Performed By: #### MARU #### [facility] [address] [place] [address] Dr. Cain Bai %0.0 %Critically low0.2-2.0The [facility] Medical CenterComment on above:Performed By: #### MARU #### [facility] [address] [place] [address] Dr. Cain Cuellar #NormalThe Harrison HospitalComment on above:Performed By: #### MARU #### [facility] [address] [place] [address] Dr. Cain Cuellar %NormalMercy Health Fairfield HospitalComment on above:Performed By: #### MARU #### [facility] [address] [place] [address] Dr. Cain McwilliamsCORRECTED WBCNormal4.0-11.0The [facility] Medical CenterComment on above: Performed By: #### CBCISMAEL #### [facility] [address] [place] [address] Dr. Cain Gannon #0.00 103/ulNormal0.00-0.70The Harrison HospitalComment on above:Performed By: #### CBCISMAEL #### [facility] [address] [place] [address] Dr. Cain Gannon%0.0 %Critically low0.9-7.0The Harrison HospitalComment on above:Performed By: #### CBCISMAEL #### [facility] [address] [place], [place] [address] Dr. Cain ChavezT44.2 %Xulacb06.0-48.0The [facility] Medical CenterComment on above: Performed By: #### MARU #### [facility] [address] [place] [address] Dr. Cain McwilliamsHGB14.6 g/sfKmvbat35.0-16.0The [facility] Medical CenterComment on above: Performed By: #### MARU #### [facility] [address] [place] [address] Dr. Cain Rust #0.34 103/ulCritically low1.20-3.80The [facility] Comment on above:Performed By: #### MARU #### [facility] [address] [place] [address] Dr. Cain Rust%5.0 %Critically low20.5-60.0The [facility] Medical CenterComment on above:Performed By: #### MARU #### [facility] [address] [place] [address] Dr. Cain McwillimasMCH30.0 quNsmmjh44.7-34.0The [facility] Medical CenterComment on above: Performed By: #### MARU #### [facility] [address] [place] [address] Dr. Cain KnoxHC33.0 g/qzVlzxsp42.9-35.2The [facility] Medical CenterComment on above:Performed By: #### MARU #### [facility] [address] [place] [address] Dr. Cain KnoxV90.9 wTQqjfdk75.0-99.0The [facility] Medical CenterComment on above: Performed By: #### MARU #### [facility] [address] [place] [address] Dr. Cain CooperOCYTE #NormalThe [facility] Medical CenterComment on above: Performed By: #### MARU #### [facility] [address] [place] [address] Dr. Cain CooperOCYTE %NormalThe [facility] Medical CenterComment on above: Performed By: #### MARU #### [facility] [address] [address] [address] Cain Colon#0.21 103/ulCritically low0.30-0.80[facility] on above:Performed By: #### MARU #### [facility] [address] [address] [address] Cain Colon%3.0 %Normal1.7-12.0The [facility] Medical CenterComment on above: Performed By: #### MARU #### [facility] [address] [address] [address] Cain McwilliamsMPV11.3 fLNormal9.5-13.5The [facility] Medical CenterComment on above: Performed By: #### MARU #### [facility] [address] [place] [address] Dr. Cain HaleyOCYTE #NormalThe [facility] Medical CenterComment on above:Performed By: #### MARU #### [facility] [address] [place] [address] Dr. Cain HaleyOCYTE %NormalThe [facility] Medical CenterComment on above:Performed By: #### MARU #### [facility] [address] [place] [address] Dr. Cain McwilliamsNRBCNormalThe [facility] CenterComment on above:Performed By: #### MARU #### [facility] [address] [place] [address] Dr. Cain McwilliamsPLT153 103/iaJnagjv812-245Afy [facility] CenterComment on above: Performed By: #### MARU #### [facility] [address] [place] [address] Dr. Cain McwilliamsRBC4.86 106/ulNormal4.20-5.40The [facility] Medical CenterComment on above:Performed By: #### MARU #### [facility] [address] [place] [address] Dr. Cain McwilliamsRDW12.5 %Schhhy84.0-15.0The [facility] Medical CenterComment on above: Performed By: #### CBCMAN #### [facility] [address] [place], [place] [address] Dr. Cain Chinchilla #6.14 103/ulNormal1.40-6.50The [facility] Medical CenterComment on above:Performed By: #### CBCMAN #### [facility] [address] [place], [place] [address] Dr. Cain Chinchilla %89.0 %Critically high43.0-75.0The [facility] Medical CenterComment on above:Performed By: #### CBCMAN #### [facility] [address] [place], [place] [address] Dr. Cain McwilliamsWBC6.9 103/ulNormal4.0-11.0The [facility] on above: Performed By: #### CBCMAN #### [facility] [address] [address] [address] Cain McwilliamsCT ABD/PELV W CONon 14-31-7782KN ABD/PELV W CONEXAMINATION: CT ABD/PELV W CON HISTORY: Abdominal pain [...] for better evaluation. Electronically authenticated by: ISHMAEL TEDDYARDEN Date: 2021-08-24 17:39NoMercy Health Tiffin HospitalCULTURE BLOODon 18-62-4024Pblshuhcsoo examination of blood, cultureCulture Observations: No growth at 5 days.NormalMercy Health Fairfield HospitalComment on above:Performed By: #### CBC #### [facility] [address] [place] [address] Dr. Cain McwilliamsMicroscopic examination of blood, cultureCulture Observations: No growth at 5 daysMetroHealth Cleveland Heights Medical CenterComment on above:Performed By: #### CBC #### [facility] [address] [place] [address] Dr. Cain McwilliamsCovid-19 PCR ([facility])on 74-78-8876XVKS-CoV-2 (COVID-19) RNA DANIELLE+probe Ql (Unsp spec)Not detectedNormalNOT DETECTEDThe [facility] Comment on above:Result Comment: When diagnostic testing is negative, the [...] for this test is supported by the Sales Development Manager of Health and Human Service's declaration that circumstances exist to justify the emergency use of in vitro diagnostics for the detection and/or diagnosis of the virus that causes COVID-19. This EUA will remain in effect for the duration of the COVID-19 declaration justifying emergency of IVDs, unless it is terminated or revoked by the FDA (after which the test may no longer be used).Performed By: #### CVDTBH #### [facility] [address] [place] [address] Dr. Cain Jefferson URINE PROFILEon 32-06-4453Sjwkzexqc Ql (U)NegativeNormal NEGATIVEMercy Health Fairfield HospitalComment on above:Performed By: #### CBC #### [facility] [address] [place] [address] Dr. Cain McwilliamsClarity (U)SL CLOUDYAbnormalCLEARThSt. Francis HospitalComment on above:Performed By: #### CBC #### [facility] [address] [place] [address] Dr. Cain Monterrosolor (U)YELLOWNormalYELLOWMercy Health Fairfield HospitalComment on above: Performed By: #### CBC #### [facility] [address] [place] [address] Dr. Cain Montenegro micrscopic examination will be performed if indicated. NormalMercy Health Fairfield HospitalComment on above:Performed By: #### CBC #### [facility] [address] [place] [address] Dr. Cain McwilliamsGlucose Ql (U)NegativeNormalNEGATIVEMercy Health Fairfield HospitalComment on above:Performed By: #### CBC #### [facility] [address] [place] [address] Dr. Cain McwilliamsHemoglobin Ql (U)NegativeNormalNEGATIVETrinity Health System West Campus on above:Performed By: #### CBC #### [facility] [address] [place] [address] Dr. Cain McwilliamsKetones Ql (U)NegativeNormalNEGATIVEMercy Health Fairfield HospitalComment on above:Performed By: #### CBC #### [facility] [address] [place] [address] Dr. Cain McwilliamsLEUKOCYTESNegativeNormalNEGATIVEMercy Health Fairfield HospitalComment on above:Performed By: #### CBC #### [facility] [address] [address] [address] Cain Ling Ql (U)NegativeNormalNEGATIVEThe [facility] CenterComment on above:Performed By: #### CBC #### [facility] [address] [address] [address] Cain McwilliamspH (U)5.5 [pH]Normal5-9The [facility] CenterComment on above: Performed By: #### CBC #### [facility] [address] [place] [address] Dr. Cain McwilliamsSPEC GRAVITY1.611Fvxjnx6.005-<=1.025The [facility] Medical CenterComment on above:Performed By: #### CBC #### [facility] [address] [place] [address] Dr. Cain Ni PROTEINNegativeNormalNEGATIVE/ TRACEThe [facility] Comment on above:Performed By: #### CBC #### [facility] [address] [place] [address] Dr. Cain Wright MICRO INDNOT INDICATEDNormalThe [facility] CenterComment on above:Performed By: #### CBC #### [facility] [address] [place] [address] Dr. Cain Morrowbilinogen Qn (U)0.2 {Claire'U}/dLNormal0.2 - 1.0The [facility] CenterComment on above:Performed By: #### CBC #### [facility] [address] [place] [address] Dr. Cain McwilliamsLACTATE/LACTIC ACIDon 13-24-3076Plnroks [Moles/Vol]2.1 mmol/L Critically high0.7-2.0The [facility] on above:Performed By: #### LACT #### [facility] [address] [place] [address] Dr. Cain McwilliamsLIPASEon 58-40-2017Lgodgs [Catalytic activity/Vol]102.0 U/LNormal 23.0-300.0The Harrison HospitalComment on above:Performed By: #### CMP, LIPA #### [facility] [address] [address] [address] Cain Cui HCG QUALon 26-71-7869KJPWDQYPD, QUALNegativeNormalNEGATIVE The [facility] Medical CenterComment on above:Performed By: #### CBC #### [facility] [address] [place] [address] Dr. Cain McwilliamsPROF 14(COMP METB)on 56-47-4788Asttoxv [Mass/Vol]3.7 g/dLNormal 3.4-5.0The [facility] CenterComment on above:Performed By: #### CMP, LIPA #### [facility] [address] [place] [address] Dr. Cain McwilliamsAlbumin/Globulin [Mass ratio]1.1 {ratio}NormalThe [facility] CenterComment on above:Performed By: #### CMP, LIPA #### [facility] [address] [place] [address] Dr. Cain Gavin [Catalytic activity/Vol]103 U/DJrzkty19-541Ilt [facility] CenterComment on above:Performed By: #### CMP, LIPA #### [facility] [address] [place] [address] Dr. Cain Taylor [Catalytic activity/Vol]18 U/RPcveqp38-36Mon [facility] CenterComment on above:Performed By: #### CMP, LIPA #### [facility] [address] [place] [address] Dr. Cain Bravo gap [Moles/Vol]15.3 mmol/LNormalThe [facility] on above:Performed By: #### CMP, LIPA #### [facility] [address] [place] [address] Dr. Cain McwilliamsAST [Catalytic activity/Vol]13 U/LCritically tuy44-82Tdi [facility] CenterComment on above:Performed By: #### CMP, LIPA #### [facility] [address] [place] [address] Dr. Yilan ChangBilirubin [Mass/Vol]0.7 mg/dLNormal0.2-1.3The [facility] Comment on above:Performed By: #### CMP, LIPA #### [facility] [address] [address] [address] Cain McwilliamsCalcium [Mass/Vol]8.3 mg/dLCritically low8.5-10.1The [facility] CenterComment on above:Performed By: #### CMP, LIPA #### [facility] [address] [place] [address] Dr. Cain McwilliamsChloride [Moles/Vol]102 mmol/JAfzrtm25-259Rjj [facility] Comment on above:Performed By: #### CMP, LIPA #### [facility] [address] [place] [address] Dr. Cain McwilliamsCO2 [Moles/Vol]22.2 mmol/GUcsxjy96.0-30.0[facility] Comment on above:Performed By: #### CMP, LIPA #### [facility] [address] [place] [address] Dr. Cain McwilliamsCreatinine [Mass/Vol]0.93 mg/dLNormal0.52-1.04The [facility] CenterComment on above:Performed By: #### CMP, LIPA #### [facility] [address] [place] [address] Dr. Cain RamseyGFR-AF DANISH>60Normal>=60The [facility] CenterComment on above:Performed By: #### CMP, LIPA #### [facility] [address] [place] [address] Dr. Cain RamseyGFR-NON AF DANISH>60Normal>=60The [facility] CenterComment on above:Performed By: #### CMP, LIPA #### [facility] [address] [place] [address] Dr. Cain McwilliamsGlobulin (S) [Mass/Vol]3.5 g/dLNormalThe [facility] CenterComment on above:Performed By: #### CMP, LIPA #### [facility] [address] [address] [address] Cain McwilliamsGlucose [Mass/Vol]108 mg/dLCritically thxx62-714Yrm [facility] CenterComment on above:Performed By: #### CMP, LIPA #### [facility] [address] [address] [address] Cain McwilliamsPotassium [Moles/Vol]3.5 mmol/LNormal3.4-5.0The [facility] Comment on above:Performed By: #### CMP, LIPA #### [facility] [address] [address] [address] Cain McwilliamsProtein [Mass/Vol]7.2 g/dLNormal6.1-8.2The [facility] Comment on above:Performed By: #### CMP, LIPA #### [facility] [address] [address] [address] Cain McwilliamsSodium [Moles/Vol]136 mmol/LCritically mxa212-241Yer [facility] CenterComment on above:Performed By: #### CMP, LIPA #### [facility] [address] [address] [address] Cain McwilliamsUrea nitrogen [Mass/Vol]11.0 mg/dLNormal7.0-18.0The [facility] CenterComment on above:Performed By: #### CMP, LIPA #### [facility] [address] [address] [address] Cain McwilliamsUrea nitrogen/Creatinine [Mass ratio]11.8 mg/mgNormalThe [facility] CenterComment on above:Performed By: #### CMP, LIPA #### [facility] [address] [place] [address] Dr. Cain McwilliamsAutomated basophil %on 32-14-5169Ncyjdgfkr/100 WBC (Bld)0.4 % [facility] CtrAutomated basophil counton 40-16-6252Kpxgmysuo (Bld) [#/Vol]0.0 10*3/uL0.0-0.2FDetwiler Memorial Hospital CtrAutomated blood lymphocyte count (number/volume)on 09-19-3986Unvacczgyrk (Bld) [#/Vol]0.8 10*3/uL1.00-4.8[facility] CtrAutomated blood lymphocyte count as percentage of total leukocyteson 00-18-1417Dcqszkjgxzy/100 WBC (Bld)21.0 % [facility] CtrAutomated blood monocyte counton 02-11-2019 Monocytes (Bld) [#/Vol]0.2 10*3/uL0.0-0.8[facility] CtrAutomated blood platelet count (count/volume)on 54-20-5196Lilfcggyw (Bld) [#/Vol]141 10*3/oQ884-045HswyfvlbiAv[facility] Health [facility] CtrAutomated blood platelet mean volume measurementon 86-15-5523Lvjpmujz mean volume (Bld) [Entitic vol]9.4 fL6.3-10.7 [facility] CtrAutomated eosinophil %on 01-84-3373Nrmeepmirbr/100 WBC (Bld)1.1 %[facility] CtrAutomated eosinophil counton 57-63-5948Cwwymggfowl (Bld) [#/Vol]0.0 10*3/uL0.0-0.45[facility] CtrAutomated erythrocyte distribution width ratioon 23-07-8269Rwywegdcdri distribution width (RBC) [Ratio]12.4 %11.9-15.3FDetwiler Memorial Hospital Ctr Automated erythrocyte mean corpuscular hemoglobin (mass per erythrocyte)on 52-10-9658UPQ (RBC) [Entitic mass]30.3 pg24.7-34.3FDetwiler Memorial Hospital Ctr Automated erythrocyte mean corpuscular hemoglobin concentration measurement (mass/volon 34-82-8203CVJT (RBC) [Mass/Vol]33.8 g/dL32.0-35.0[facility] CtrAutomated erythrocyte mean corpuscular volumeon 96-35-9795NTV (RBC) [Entitic vol]89.6 iK36-500PnrnthgtrAvita Health [facility] Hospital CtrAutomated erythrocytes count in urine sediment (number/area)on 65-51-0213QZK Auto (Urine sed) [#/Area] 10-19 [HPF][facility] CtrAutomated leukocytes count in urine sediment (number/area)on 89-25-0678XIU Auto (Urine sed) [#/Area]3-4 [HPF] [facility] CtrAutomated monocyte %on 10-12-7905Iyzbuhbdi/100 WBC (Bld)5.6 %[facility] CtrAutomated neutrophil %on 02-11-2019 Neutrophils/100 WBC (Bld)71.9 %[facility] HospitalAutomated urine color determinationon 63-44-3363Zsxca (U)YellowYellowAv[facility] CtrBlood erythrocytes automated count (number/volume)on 71-34-2761MOR (Bld) [#/Vol]4.66 10*6/uL3.60-5.00[facility] CtrBlood hemoglobin measurement (mass/volume)on 34-98-8316Idqytpccoo (Bld) [Mass/Vol]14.1 g/dL 11.8-15.4FParma Community General HospitalBlood leukocytes automated count (number/volume)on 30-94-0365WPO (Bld) [#/Vol]3.8 10*3/uL3.8-11.6FParma Community General HospitalBlood neutrophil count by automated method (number/volume)on 66-55-8707Dldawzuqkxb (Bld) [#/Vol]2.7 10*3/uL1.8-7.7FDetwiler Memorial Hospital CtrEstimated glomerular filtration rate (GFR) non- Americanon 02-11-2019 GFR/1.73 sq M predicted among non-blacks MDRD (S/P/Bld) [Vol rate/Area] mL/min/{1.73_m2}[facility] CtrHematocrit [Volume Fraction] of Blood by Automated counton 70-41-3944Nhxoukxqdy (Bld) [Volume fraction]41.7 % 34.0-46.4FDetwiler Memorial Hospital CtrOtheron 65-19-6058BLT/1.73 sq M.predicted MDRD (S/P/Bld) [Vol rate/Area]mL/min/{1.73_m2}[facility] Comment on above:GFR estimated reference range: According to KDOQI guidelines, <60 ml/min/1.73m2 is sufficient todiagnose a patient with chronic kidney disease.Nucleated RBC/100 WBC (Bld) [Ratio]0.1 %0-0.5FDetwiler Memorial Hospital CtrPharmacy Creatinine Clearance (Chem94.4318741458WnhkpvqgvAvita Health System [facility] Hospital CtrSerum or plasma calcium measurement (mass/volume)on 24-89-3928Vhmfqdi [Mass/Vol]9.5 mg/dL8.2-10.2FDetwiler Memorial Hospital CtrSerum or plasma chloride measurement (moles/volume)on 37-46-5845Bmgtztxf [Moles/Vol]107 mmol/L 95-114[facility] CtrSerum or plasma creatinine measurement with calculation of estimated glomerular filtron 15-62-6322Uuyhgyczso [Mass/Vol]0.86 mg/dL0.44-1.03[facility] CtrSerum or plasma glucose measurement (mass/volume)on 45-45-2028Vwocgvp [Mass/Vol]103 mg/bA11-198BkmxpjqujAvita Health System [facility] Hospital CtrComment on above:ADA recommended reference rangeRandom Glucose Reference Range is dependent on time and content of last meal. Glucose of more than 200 mg/dL in a nonstressed, ambulatory subject supports the diagnosisof Diabetes Mellitus.Serum or plasma potassium measurement (moles/volume)on 11-86-4795Mfxwbqvii [Moles/Vol]3.9 mmol/L3.5-5.1FDetwiler Memorial Hospital Ctr Serum or plasma sodium measurement (moles/volume)on 65-20-0005Aogged [Moles/Vol] 139 mmol/E814-617QzhjwmdgbAvita Health System [facility] Hospital CtrSerum or plasma total carbon dioxide measurement (moles/volume)on 05-97-8795OR1 [Moles/Vol]24.6 mmol/L 22.0-30.0[facility] CtrSerum or plasma urea nitrogen measurement (mass/volume)on 41-04-8280Xdww nitrogen [Mass/Vol]8 mg/dL9-23[facility] HospitalSpecific gravity of Urine by Automated test stripon 02-11-2019 Specific gravity (U) [Rel density]1.0211.001-1.030[facility] Squamous epithelial cells detection in urine sediment by light microscopyon 51-02-0221Zqizxuagai cells.squamous LM Ql (Urine sed)5-9 [HPF][facility] CtrUrinalysison 98-19-3065Scmlesy casts LM Ql (Urine sed)0-8 [LPF] [facility] HospitalUrine bacteria detection by automated methodon 43-22-4345Umekvlrz Auto Ql (U)None seenNone SeenAvita Health System [facility] Hospital Ctr Urine clarity by refractometry automatedon 35-77-5555Pvnhehz Refractometry automated (U)ClearClearFParma Community General HospitalUrine glucose measurement by automated test strip (mass/volume)on 74-60-3938Qknjntb Auto test strip (U) [Mass/Vol]Normal mg/dLNoAdena Fayette Medical CenterUrine hemoglobin detection by automated test stripon 01-31-4591Tkclucbxds Auto test strip Ql (U) 2+NegativeClinton Memorial HospitalUrine human chorionic gonadotropin (hCG) detection by immunoassayon 92-52-1568IJD ( test) Ql (U)Negative NegativeClinton Memorial HospitalUrine ketones measurement by automated test strip (mass/volume)on 74-85-9243Arisfoi (U) [Mass/Vol]NegativeNegative [facility] HospitalUrine leukocyte esterase detection by automated test stripon 44-79-0383Zaigvpizn esterase Auto test strip Ql (U)NegativeNegative [facility] HospitalUrine nitrite detection by test stripon 02-11-2019 Nitrite Ql (U)NegativeNegUC HealthUrine pH measurement by automated test stripon 16-96-0841eG (U)5.0 [pH]5.0-9.0[facility] HospitalUrine protein measurement by automated test strip (mass/volume)on 44-38-1131Dugwmic (U) [Mass/Vol]NegativeNegUC Health Urine total bilirubin detection by test stripon 87-17-6485Ecjxvwidx Ql (U) NegativeNegUC HealthUrine urobilinogen measurement by automated test strip (mass/volume)on 68-10-9764Gvqeajxcvbjd (U) [Mass/Vol]Normal mg/dLNoAdena Fayette Medical Center Vital Signs Date TimeVital SignValuePerforming PadsahfxjVbizpxfm56-49-3007 09:34-0400Body mass index (BMI) [Ratio]34.95 kg/q8Onszx Christian DO Work Phone: [facility] CenterZbokiokkkb81-90-2565 09:34-0400Body fncbxa24.25 kgCorey Christian DO Work Phone: [facility] CenterIuxqdgtwsh93-07-4574 09:34-0400Diastolic blood syewrpot84 mm[Hg]Jaxson Christian DO Work Phone: [facility] CenterPimfjhrjzm70-10-1079 09:34-0400Systolic blood mm[Hg]Jaxsonelise Baileyo DO Work Phone: [facility] CenterZwzmudunxd87-77-8297 12:39-0400Body dkujub202.1 cmG. Raymundo Prieto DO Work Phone: [phone] [place], [place] 5617509-20-2025 12:39-0400 Body mass index (BMI) [Ratio]34.4 kg/m2G. Raymundo Prieto DO Work Phone: [phone] [place], [place] 5617509-20-2025 12:39-0400 Body qfqsudgtcow56.6 [degF]Gabino Prieto DO Work Phone: [phone] [place], [place] 5617509-20-2025 12:39-0400 Body preakg10.89 kgG. Raymundo Prieto DO Work Phone: [phone] [place], [place] 5617509-20-2025 12:39-0400 Diastolic blood mm[Hg]Gabino Prieto DO Work Phone: [phone] [place], [place] 5617509-20-2025 12:39-0400 Heart rate77 /Shay. Raymundo Prieto DO Work Phone: [phone] [place], [place] 5617509-20-2025 12:39-0400 Respiratory rate18 /Shay. Raymundo Prieto DO Work Phone: [phone] [place], [place] 5617509-20-2025 12:39-0400 SaO2% (BldA) [Mass fraction]99 %Gabino Prieto DO Work Phone: [phone] [place], [place] 5617509-20-2025 12:39-0400 Systolic blood sgbqufhy959 mm[Hg]Gabino Prieto DO Work Phone: [facility]08-07-2025 13:46-0400 Body kqdjlpabtkn26.29 [degF]Genaro Cartagena DMD Work Phone: [facility]08-07-2025 13:46-0400Diastolic blood ucadqjmh38 mm[Hg]Genaro Cartagena DMD Work Phone: [facility]08-07-2025 13:46-0400Heart rate71 /minKconsuelo Cartagena DMD Work Phone: [facility]08-07-2025 13:46-0400Systolic blood ssihgbun303 mm[Hg]Genaro Cartagena DMD Work Phone: [facility]04-21-2025 10:23-0400Body jigtvp677.1 cmEllen Warren ENVELOPE FOLDING MACHINE ADJUSTER Work Phone: noCo[facility] HospitalQankjvnccd82-36-5960 10:23-0400Body mass index (BMI) [Ratio]34.45 kg/j6ZlvthEllen Warren ENVELOPE FOLDING MACHINE ADJUSTER Work Phone: noCo[facility] Memorial HospitalRaehiwujez27-72-6511 10:23-0400Body temperature 97.11 [degF]Ellen Warren ENVELOPE FOLDING MACHINE ADJUSTER Work Phone: noCo[facility] HospitalJqfqrrwnnm37-67-5275 10:23-0400Body hcqrxe83.89 kgEllen Warren ENVELOPE FOLDING MACHINE ADJUSTER Work Phone: NOCooper County Memorial HospitalFerfhfiexd60-27-1091 10:23-0400Diastolic blood dcptovxl10 mm[Hg]Ellen Warren ENVELOPE FOLDING MACHINE ADJUSTER Work Phone: noCooper [facility] HospitalKpdsbczvel97-46-1094 10:23-0400Heart rate90 /min Ellen Warren ENVELOPE FOLDING MACHINE ADJUSTER Work Phone: noCooper County Memorial HospitalLrffmbikxs33-65-3677 10:23-2186MlJ6% (BldA) [Mass fraction]98 %Ellen Warren ENVELOPE FOLDING MACHINE ADJUSTER Work Phone: noCooper County Memorial HospitalJjhduirdvn59-32-7867 10:23-0400Systolic blood njkwucrr923 mm[Hg]Ellen Warren ENVELOPE FOLDING MACHINE ADJUSTER Work Phone: [facility] CenterIhhujozwlk28-26-3657 11:19-0400Body .1 Eusebio Lamar PA Work Phone: [facility] CenterNvxjlhycjs88-28-7997 11:19-0400Body mass index (BMI) [Ratio]34.28 kg/m2Corrine Lamar PA Work Phone: [facility] CenterNdrlwwjffp58-91-7820 11:19-0400Body temperature 97.39 [degF]Corrine Lamar PA Work Phone: [facility] CenterTsptyuivwc47-55-0005 11:19-0400Body lrknra99.44 kgCorrine Lamar PA Work Phone: [facility] CenterPruzcxtkwa20-18-3193 11:19-0400Diastolic blood mkkugath36 mm[Hg]Corrine Lamar PA Work Phone: [facility] CenterNccpoeugms47-12-6269 11:19-0400Heart rate87 /min Corrine Lamar PA Work Phone: [phone] [place], [place] [address]Sqjaovczlt37-38-0965 11:19-1918QeP4% (BldA) [Mass fraction]99 %Corrine Lamar PA Work Phone: [facility] CenterZtnegprnpd24-31-1712 11:19-0400Systolic blood jggbfzwy547 mm[Hg]Corrine Lamar PA Work Phone: [facility] CenterIixyxabfhx77-72-1749 11:35-0400Body mass index (BMI) [Ratio]34.61 kg/t7Yowuz Christian DO Work Phone: [facility] CenterXfjqprbuuk80-96-2119 11:35-0400Body .35 kgCorey Christian DO Work Phone: NOCo[facility] HospitalEwqxxvclxw05-46-8870 11:35-0400Diastolic blood slyeignp19 mm[Hg]Jaxson Christian DO Work Phone: [facility] CenterGefhrhebas97-63-6382 11:35-0400Systolic blood mm[Hg]Jaxson Christian DO Work Phone: [facility]OC[facility] HospitalKnafxcrafh38-97-5856 14:37-0500Body pzkoyq745.1 cmRtripp Lamar PA Work Phone: [facility] CenterEwlakxwvhu57-50-5482 14:37-0500Body mass index (BMI) [Ratio]34.95 kg/m2Vinaymarito Brianda PA Work Phone: [employer], IncCooper County Memorial HospitalDbxkhtzfjp04-34-4327 14:37-0500Body temperature 97.39 [degF]Corrine Lamar PA Work Phone: [employer], IncCooper County Memorial HospitalLbwjpxrygh22-26-1376 14:37-0500Body thysxz02.25 kgCorrine Lamar PA Work Phone: [facility] CenterBquwxrjwyp24-52-6080 14:37-0500Diastolic blood oidvgxig73 mm[Hg]Corrine Lamar PA Work Phone: [facility] CenterJjraliztml51-52-5369 14:37-0500Heart rate87 /min Corrine Lamar PA Work Phone: [facility] CenterWlgbdbzyti76-02-8355 14:37-9819IsW8% (BldA) [Mass fraction]98 %Corrine Lamar PA Work Phone: [employer], IncCooper County Memorial HospitalZusidcovyx23-84-7387 14:37-0500Systolic blood iwyafndr536 mm[Hg]Corrine Lamar PA Work Phone: [facility] CenterPedtawqwoh94-11-8043 18:37-0400Body qyexfm704.1 cmM[facility]09-[facility]2024 18:37-0400Body mass index (BMI) [Ratio]38.2 kg/b2AdgrqpzxoMckitrick Hospital09-11-2024 18:37-0400Body ujpbgiyedda94.7 [degF][facility]09-11-2024 18:37-0400Body .32 kgMckitrick Hospital09-11-2024 18:37-0400Diastolic blood xfjywiuu06 mm[Hg][facility]09-11-2024 18:37-0400 Heart rate85 /[facility]09-11-2024 18:37-0400 Respiratory rate18 /[facility]09-11-2024 18:37-0400 SaO2% (BldA) [Mass fraction]98 %[facility]09-11-2024 18:37-0400Systolic blood eqpykpmv113 mm[Hg][facility] 01-12-2024 15:45-0400Body yzbozaijvub16.01 [degF]Summer Workman PA Work Phone: [facility] CenterMcnbisqtzv10-83-0095 15:45-0400Diastolic blood vnkhzuhx03 mm[Hg]Summer Workman PA Work Phone: [facility] CenterHtsagsizut69-67-4592 15:45-0400Heart rate80 /min Summer Workman PA Work Phone: [facility] CenterWckqslvgsx26-40-4186 15:45-6079PsO4% (BldA) [Mass fraction]99 %Summer Workman PA Work Phone: [facility] CenterJzvfmsjxag22-49-3354 15:45-0400Systolic blood amvsoepp598 mm[Hg]Summer Workman PA Work Phone: [facility] CenterEwqmlcxkyi12-92-0602 13:45-0400BP Voruzanep51 mm[Hg][facility]09-21-2019 13:45-0400BP Lhmsvtkm284 mm[Hg][facility]09-21-2019 13:45-0400Pulse (Heart Rate)74 /Shay. [facility]09-21-2019 13:45-0400Pulse Gfqypzfk676 %[facility]09-21-2019 13:45-0400 Respiratory Rate19 /Shay. [facility]09-21-2019 11:03-0400BMI (Body Mass Index)25.7 kg/m2G. [facility] 02-11-2019 11:03-0400Body Epxfncevipa23.7 [degF][facility]09-21-2019 11:03-0400Body .[address] [facility]09-21-2019 11:03-1505Runxea301.1 cmG. [facility] Encounters Encounter DateEncounter TypeCare ProviderFacilityStart: 03-13-2025 End: 59-76-4182Ginyqw flowsheetCorey Christian DO Work Phone: [facility]BGYNStart: 03-13-2025 End: 76-10-2593Apfkcz flowsheetCorey Christian DO Work Phone: [facility] [place] OBGYNStart: 03-12-2025 End: 13-72-8337Ruieiot encounter procedureCorey Christian DO Work Phone: [facility] OBGYNComment on above:Pre-op examination; Menorrhagia with regular cycle; Pelvic pain in female; Dysmenorrhea; Dyspareunia, female; HGSIL (high grade squamous intraepithelial lesion) on Pap smear of cervixStart: 03-12-2025 End: 90-83-9628Bisctovnfylxi examination doneCorey Christian DO Work Phone: NO HealthcareStart: 03-12-2025 End: 44-22-3673pgyancklfeIALLB FAZIONot AvailableStart: 03-02-2025 End: 28-46-0710fnqftiltztZ. Raymundo Prieto DO Work Phone: [facility] Work Phone: Start: 03-02-2025 End: 16-44-1377Xnldvnh encounter procedureAdeel Eckert DO-Flu VaccineStart: 02-10-2025 End: 96-93-7055tsqjumqslfK. Raymundo Madieshan DO Work Phone: [facility] Work Phone: Start: 02-10-2025 End: 53-88-4534Iwmpejt encounter procedureTania Whitehead APRN-[facility] Work Phone: Start: 12-28-2024 End: 88-56-0387Vpucdjuqx identifierGenaro Cartagena DMD Work Phone: Dental ClinicStart: 09-84-8294uhebynoeosPwqen Kanani [facility]OSPITALtart: 09-26-2024 End: 07-40-1394Jvxwjl flowsheetMorgan Vitaliy-Beran DPM Work Phone: [facility] PODIATRYStart: 09-26-2024 End: 36-30-2357Xnvvhb flowsheetMorgan Vitaliy-Beran DPM Work Phone: NOJX SWS PODIATRYStart: 09-26-2024 End: 60-67-2671Lmqmdo outpatient new 30 minutesMorgan Vitaliy-Beran DPM Work Phone: n[facility] SWS PODIATRYComment on above:Ingrown toenail (Primary Dx); Right foot painStart: 09-26-2024 End: 84-94-3942gqivwjudujPGIWSE VITALIY-BERANNot AvailableStart: 09-11-2024 End: 56-00-9666Lklrhc flowsheetEllen Warren ENVELOPE FOLDING MACHINE ADJUSTER Work Phone: [facility] FM 230Start: 09-11-2024 End: 53-93-9289Qhlzyh flowsheetEllen Warren ENVELOPE FOLDING MACHINE ADJUSTER Work Phone: [facility] FM 230Start: 09-11-2024 End: 41-42-2155Rtoopc outpatient visit 15 minutesEllen Warren ENVELOPE FOLDING MACHINE ADJUSTER Work Phone: [facility] FM 230Comment on above:Viral URI (Primary Dx); Cough, unspecified typeStart: 09-11-2024 End: 19-25-5277zunaqnvmxmJNMPW L LUBYNot AvailableStart: 09-09-2024 End: 29-84-9382Wipedynhb Result EncounterGeneric External Data ProviderNOMS External Department UnsolicitedStart: 09-09-2024 End: 69-16-6581Duemtexgh Result EncounterGeneric External Data ProviderNOMS External Department UnsolicitedStart: 09-05-2024 End: 60-51-8420Qwgvumxf ReferredG. Raymundo Prieto DO Work Phone: [facility]-LAB Path Spec [facility] HospStart: 09-05-2024 End: 35-47-1943aahknhlqygKSantana Raymundo Prieto DO Work Phone: [facility] Work Phone: Start: 08-22-2024 End: 33-97-2680Qzxggq Miguel MOSELEY Work Phone: [facility] FM 230Start: 08-22-2024 End: 17-39-6264Vbygxu Miguel MOSELEY Work Phone: [facility] FM 230Start: 08-22-2024 End: 41-85-7884Xfzupwm encounter procedureCorrine MOSELEY Work Phone: [facility] Work Phone: Start: 08-22-2024 End: 19-12-5188Rfvkbfmz preventive med est patient 18-39 yrsCorrine MOSELEY Work Phone: NOZP SWS FM 230Comment on above:Annual wellness visit (Primary Dx)Start: 08-22-2024 End: 79-21-3929ekgkpmekttEYYY M MYERSNot AvailableStart: 08-18-2024 End: 46-70-9897Juxhxy Jessica MOSELEY Work Phone: [facility] FM 230Comment on above:Paronychia of toe, unspecified laterality (Primary Dx)Start: 08-15-2024 End: 93-93-0908Labgumipp Result EncounterGeneric External Data ProviderNOMS External Department UnsolicitedStart: 08-15-2024 End: 07-57-6431Zdrqhqdez Result EncounterGeneric External Data ProviderNOMS External Department UnsolicitedStart: 08-15-2024 End: 22-11-4807Kevmfgv encounter procedureCoreelise Baileyo DO Work Phone: noms HealthcareStart: 08-15-2024 End: 33-20-9722Qjstwkuy preventive med est patient 18-39 yrsCorey Christian DO Work Phone: [facility] BCP OBComment on above:Well woman exam with routine gynecological exam; Menorrhagia with regular cycle; History of endometrial ablationStart: 08-15-2024 End: 73-58-8628jktvklfcnaABAHH FAZIONot AvailableStart: 08-14-2024 End: 02-70-2789Hmntjsvq ReferredG. Raymundo Prieto DO Work Phone: [facility] [address] Work Phone: start: 08-14-2024 End: 28-90-5512ktwcfxiplhE. Robert Kaftan DO Work Phone: [facility] Work Phone: Start: 05-22-2024 End: 27-01-5007picybjmusfBBKV M MYERSNot AvailableStart: 05-22-2024 End: 61-51-7231Xoxwqo outpatient visit 15 minutesCorrine MOSELEY Work Phone: [facility] FM 230Comment on above:Paronychia of great toe of right foot (Primary Dx); Toenail fungusStart: 05-22-2024 End: 78-37-1543Oqyekk Miguel MOSELEY Work Phone: [facility] FM 230Start: 05-22-2024 End: 13-55-0348Ysknlz Miguel MOSELEY Work Phone: [facility] FM 230Start: 02-02-2024 End: 16-49-5096verupglnobPhzmqulzmMercy [facility] Work Phone: Start: 02-02-2024 End: 13-31-2543Dybaaok encounter procedureE[facility] Work Phone: Start: 01-12-2024 End: 60-97-2125Iwhtjx outpatient visit 15 minutesJennifer MOSELEY Work Phone: [facility] SWS UCComment on above:Viral syndrome (Primary Dx)Start: 06-22-2022 End: 93-39-4945aqpziwfkavJQ JAXSON FAZIOFacility:E7Lxifp: 10-09-2021 End: 75-10-7340hkhnhoquoxKQ JAXSON FAZIOFacility:L1Eosgz: 61-12-4277Gysvwvwml for other preprocedural examinationDR JAXSON [facility] Hospitaltart: 80-04-7293zzwgdsnegqRI JAXSON FAZIOFacility:P7Multa: 10-01-2021 End: 51-58-1747suzpbugqskRV JAXSON FAZIOFacility:M2Sznpj: 10-01-2021 End: 09-34-5950Sadqpazuw for other preprocedural examinationDR JAXSON BAILEYO Facility:Z0Ifvmx: 08-30-2021 End: 43-23-7775pltpsuwhyzZTLXL LUBYFacility:M2Nsipx: 08-25-2021 End: 38-55-7687eohrmtazfqFD JAXSON FAZIOFacility:R8Frazw: 08-24-2021 End: 54-03-4383cyooydaynnBE SOFIA SCHWARTZFacility:G2Ixiva: 02-11-2019 End: 54-69-9848Wrznouabf department patient visitG. Conner-Emergency RoomStart: 04-06-2018 End: 81-71-0715Qhfomed encounter procedureG. [facility]ner-[facility] for Breast Car Procedures DateProcedureProcedure DetailPerforming ClinicianStart: 01-60-6043Toryz test visual color cmprsn methsCsejal Gonzales DO Work Phone: Start: 39-57-3408Skjda cultureGSantana Raymundo Ramachandranshan DO Work Phone: Start: 12-28-2024 End: 09-84-0352sbzwyj risk assessment and documentation, with a finding of high riskKunajordon Cartagena DMD Work Phone: Start: 12-28-2024 End: 59-43-4231Tpsteshlolchj of current medicationsKunajordon Cartagena DMD Work Phone: Start: 12-28-2024 End: 74-48-4226knmotudzcyu counseling for control of dental diseaseKunajordon Cartagena DMD Work Phone: Start: 12-28-2024 End: 77-54-1456pmru hygiene instructionsKunajordon Cartagena DMD Work Phone: Start: 12-28-2024 End: 31-86-4052jhadzvwiood scaling and root planing - one to three teeth per quadrantKconsuelo Cartagena DMDStart: 12-28-2024 End: 01-76-8952prvycmh application of fluoride varnishGenaro Cartagena DMDStart: 72-49-1709KEGAJQ COVID-19/Glenn Warren NP Work Phone: Start: 79-34-8098CHSJQ RESPIRATORY CULTUREGeneric External Data ProviderStart: 82-36-8220Jjrka test visual color cmprsn methsCorey Christian DO Work Phone: Start: 21-36-3826GAU,APTIMA HPV,AGE GDLNCorey Christian DO Work Phone: Start: 43-15-1592Brvvjmzxquf observation [Identifier] in Cervix by Cyto Kailyn Warren 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 Kaftan Plan of Treatment DateCare ActivityDetailAuthorStart: 14-29-4585Nqfvayfkh for malignant neoplasm of cervixNOMS HealthcareStart: 41-47-2608WhynbijClear View Behavioral Health Work Phone: Start: 03-13-2025 End: 03-30-6318Hikoerr encounter procedureNOMS BCP OBComment on above:Arrived Start: 03-12-2025 End: 99-10-3071Zeawhfc encounter zmomxkwhj80/20/2025 9:30 AM EDT Procedure Visit [facility] [address] [facility] [place] [address] Jaxson Gonzales, DO [address] [place] [address] [facility] BCP OBStart: 27-90-1030WsixppnAdventHealth [facility] Work Phone: Start: 34-57-5185[facility]ggMiddle [facility] Work Phone: Start: 10-10-2024 End: 71-35-1372Adzidjn encounter wknikmhmf61/20/2025 9:30 AM EDT Office Visit [facility] [address] [place] [phone] Madi Alvares DPM [address] [place] [address] [facility] PODIATRYStart: 09-26-2024 End: 27-44-8037Koxssiz encounter yztfrsycf24/06/2025 9:30 AM EDT Office Visit [facility] [address] [place] [address] Madi Alvares DPVentura [address] [place] [address] ArrivedNOMS SWS PODIATRYComment on above: ArrivedStart: 09-11-2024 End: 04-21-4686Gocljzu encounter deycgasvl75/21/2025 10:20 AM EDT Office Visit [facility] [address] [place] [phone] Ellen Warren NP [address] [place] [address] ArrivedNOMS SWS FM 230Comment on above:ArrivedStart: 08-22-2024 End: 62-66-9578Usgzgat encounter /01/2025 11:20 AM EDT Office Visit [facility] [address] [place] [address] Corrine Lamar PA [address] [place] [address] ArrivedNOMS SWS FM 230Comment on above:ArrivedStart: 08-03-2024 End: 81-54-8867Fhnrfjb encounter bqykodutw97/13/2025 8:30 AM EDT Office Visit [facility] [address] [place] [address] Jaxson Gonzales, DO [address] [facility] [place] [address] [facility] BCP OBStart: 30-39-1697Mnkxyntub for malignant neoplasm of cervixNOMS HealthcareStart: 10-25-7202Bpnhtayhh vaccinationInfluenza Vaccine (#1)[facility] HealthcareStart: 95-31-0014Xuttibgdk for malignant neoplasm of cervixPap SmearNOOR HealthcareCytology Cervical or vaginal smear or scraping studyPap Smear Pathology and Cytology Routine Well woman exam with routine gynecological exam Ordered: 08/15/2024[facility] Work Phone: comment on above:Ordered: 08/15/2024Human papilloma virus DNA [Presence] in Unspecified specimen by Probe with amplificationHPV DNA probe, amplified Microbiology Routine Well woman exam with routine gynecological exam Ordered: 08/15/2024[facility] HealthcareComment on above:Ordered: 08/15/2024 Patient EducationKidney Stones (ED) How to Strain Your Urine (ED)[facility] CtrPatient referralAv[facility] Hospital CtrTissue exam Tissue exam Pathology and Cytology Routine Pre-op examination Menorrhagia with regular cycle Pelvicpain in female Dysmenorrhea Dyspareunia, female HGSIL (high grade squamous intraepithelial lesion) on Pap smear of cervix Ordered: 03/12/2025[facility] Work Phone: comment on above:Ordered: 03/12/2025Urine culture [facility] Immunizations Immunization DateImmunizationNotesCare HeiyldpqLxqnckyb51-42-2624zoxlwwrxg, seasonal, injectable, preservative Brittany MOSELEY Work Phone: [facility] CenterFqhnfywwyz82-38-7616zzrsypz toxoid, reduced diphtheria toxoid, and acellular pertussis vaccine, adsorbedSummer Dread MOSELEY Work Phone: [facility] CenterUorwzskzvb53-66-9737gvuwqdybmzoax polysaccharide (groups A, C, Y and W-135) diphtheria toxoid conjugate vaccine (MCV4P)Corrine MOSELEY Work Phone: [phone] [place], [place] [address]Akdtixwega43-85-6337krgankejgl, tetanus toxoids and pertussis vaccineCorrine MOSELEY Work Phone: [phone] [place], [place] [address]Wtlpklwbvs26-38-1527jiczvzs, mumps and rubella virus vaccineCorrine MOSELEY Work Phone: [phone] [place], [place] [address]Pzjzsmqjmp47-50-1840diakozbyhh vaccine, inactivatedCorrine MOSELEY Work Phone: [phone] [place], [place] [address]Jsqmiuexbx42-89-6072ljhrxcbpgtr influenzae type b vaccine, PRP-T conjugateCorrine MOSELEY Work Phone: [phone] [place], [place] [address]Klewivuubo19-93-4230ccvcsyw, mumps and rubella virus vaccineCorrine MOSELEY Work Phone: [phone] [place], [place] [address]Iihrjzxbla21-85-3019jddhgnqckz, tetanus toxoids and pertussis vaccineCorrine MOSELEY Work Phone: [phone] [place], [place] [address]Ihxvppvrky90-72-9616nubrqykxesf influenzae type b vaccine, PRP-T conjugateCorrine MOSELEY Work Phone: [phone] [place], [place] [address]Cevanglpzh49-23-3513slvqdjewtx, tetanus toxoids and pertussis vaccineCorrine MOSELEY Work Phone: [phone] [place], [place] [address]Hqvcrofppb37-28-0852wdcqiwklph vaccine, inactivatedCorrine MOSELEY Work Phone: [phone] [place], [place] [address]Ptjjgdlojt91-52-9505ooislyvcav, tetanus toxoids and pertussis vaccineCorrine MOSELEY Work Phone: [phone] [place], [place] [address]Stucdblnkb10-80-4683dnvxtebnsr vaccine, inactivatedCorrine MOSELEY Work Phone: [phone] [place] [address] Payers DatePayer CategoryPayerPolicy [id number]-[id number] 2023Medicaid [id number] [id number] 2.16.840.1.433507.3.57[id number] 2.16.840.1.129504.3.57[id number] 2.16.840.1.142008.3.57[id number] 2.16.840.1.724084.3.579.2.57144-99-6387Ygrxpnk0664566 2.16.840.1.342686.3.579.2.45604-43-8710Exyyrwr8967464 2.16840.1.353843.3.579.2.02958-48-4047Dhyyokw6406133 2.16840.1.643670.3.579.2.01734-67-0141Exoaboj0740526 2.16.840.1.286578.3.579.2.17442-76-4932Ycxyuxh33220027 2.16.840.1.118866.3.579.2.70140-01-9353Vagfyrg89711336 2.16.840.1.129741.3.579.2.096191-31-8143Zhdoaua4365424 2.16840.1.242852.3.579.2.143173-17-5001Yjrrxfv5810204 2.16840.1.410268.3.579.2.442550-75-4684Gjmizlv9391623 2.16.840.1.001743.3.579.2.956154-51-5869Bxtxcle7702837 2.16840.1.311317.3.579.2.423051-40-8693Qufqlam2358865 2.16.840.1.959371.3.579.2.474637-06-1656Arhieqb8911938 2.16.840.1.139781.3.579.2.3[id number] u244g14m-v5x2-88e4-0038-a0217my[id number] Pay [id number]cdjcjtQhswbr /[id number] [id number]-6mw7-7326-j9v3-08b7r821z003AfsurglYnzdrlgpe No [id number] 3ew6e270-6b94-7a44-[id number] 2.16.840.1.2[id number] 2.16.840.1.271485.3.579.2.531 [id number] 2.16.840.1.26465[id number] 2.16.840.1.4[id number] 2.16.840.1.175818.3.579.2.531 Social History DateTypeDetailFacilityStart: 58-24-6997Tkgguet smoking status NHISNever smoked tobacco (finding)[facility]trStart: 92-00-8027Djr Assigned At BirthMer[facility] CenterStart: 12-23-2022 End: 31-83-6145Lkxavha smoking status NHISEx-smoker (finding)[facility] HospitalHistory of tobacco useCurrent smokerNOMS HealthcareHistory of tobacco useCigarette SmokerNOMS HealthcareStart: 41-44-1328Qyngmbn use and exposureSmokeless tobacco non-userNOMS HealthcareStart: 01-12-2024 End: 06-67-5113Ssfobqpaa beverage intakeLifetime non-drinker (finding)[facility] HealthcareStart: 12-23-2022 End: 29-07-4118Zmefzhp of Social functionNOMS HealthcareStart: 12-23-2022 End: 60-06-8361Wmzwqvz use panelNOOR HealthcareStart: 39-77-5512Qwfdilv Comment Caffeine: > 4 cups/day sodaNOMS HealthcareStart: 25-43-9322Kmp assigned at Not on fileNOMS HealthcareStart: 08-15-2024 End: 72-68-2579CqrMeokoh (finding)[facility] Hospitaltart: 73-67-6851Uzpkdgt intakeAlcohol Use DetailsMiddle Park Medical Center Sexual OrientationStraight or heterosexualMiddle Park Medical Center Work Phone: Start: 62-50-6937Loulbo identityFeStony Brook Southampton Hospitaltart: 56-25-6912CjoXfywauNFNP HealthcareNEGATED: Highlighted rowStart: 68-00-5489Wtqcnyu smoking status NHISUnknown if ever smokedMiddle Park Medical CenterNEGATED: Highlighted rowStart: 01-33-8829Awpxifn of tobacco useCurrent non-smokerMiddle Park Medical Center Goals DatePatient GoalDesired Activity/State Functional Status QttyPgwqrcbxubUbvlqaIzfrvrog12-51-8836Ewgdyyi Health Questionnaire 2 item (PHQ- 2) [Reported][facility] Clinical Notes 10-09-2021 to 03-12-2025 Note Date & CdcbPnusIqjotoca55-07-2176 History of Present illness Narrative* Keily Vipin - 03/12/2025 9:30 AM EDT Reason for Appointment: Patient ID: Farzaneh Marvin is a 34 y.o. female who presents for Pre-op Visit and Endometrial Biopsy Patient presents today for Pre Op/Endometrial Biopsy appointment. Patient is scheduled to undergo Da Saadia assisted Laparoscopic Hysterectomy, possible exploratory laparotomy, possible BSO, possible cystoscopy on 04/11/[address] Gonzales at [facility]. MEDICATIONS No current outpatient medications ALLERGIES [...] (BMI 30-39.9) Pelvic pain 2007 Pre-op exam ([facility]) 2010 ([facility]) 2009 Umbilical hernia Varicella zoster Well [...] (BMI 30-39.9) Pelvic pain 2007 Pre-op exam ([facility]) 2010 ([facility]) 2009 Umbilical hernia age 3 Varicella [...] LAPAROSCOPY 2007 pelvic pain PELVIC LAPAROSCOPY 2018 [place] COLPOSCOPY,ENTIRE VAGINA,W/BIOPSY(S) 2009 abnormal pap smear TUBAL [...] nursing note reviewed. Exam conducted with a news content specialist present. Vitals: Estimated body mass index is 34.45 kg/m as calculated from the following: Height [...] reviewed, and patient is to proceed to [facility] OR. Follow Up: Patient is to follow up at 1 & 6 weeks post operative to assess proper healing and recovery from procedure. Documented by Carmelina Heard LPN on behalf of: Jaxson Gonzales DO documented in this encounterSaint Joseph Health CenterBanibxefnc15-16-0518 Evaluation note* Diagnosis Onset Date Resolution Status Admit Date Acute UTI acuteSeptember 2024 12:24pm [facility] Work Phone: 1(901) 875-751608-07-2025 Evaluation note* Type Assessment Date assessment Encounter for screening for dent al disorders [facility] Work Phone: 1(518) 952-350608-07-2025 History of Present illness Narrative* Encounter Date Complaint History Of Prese nt Illness [facility] Work Phone: 1(229) 625-791005-06-2025 History of Present illness Narrative* Madi Alvares DPM - 09/26/2024 9:30 AM EDT [facility] VISIT CC: Right great toe pain HPI:Farzaneh M Yon is a 33 y.o. female who presents with complaint of right great toe pain of the right foot. Patient states that pain has been present for a few months. Admits to increased pain with pressure to the area. + drainage and erythema noted to the area. Admits history of ingrown toenail in the past. Denies any nausea, vomiting, fever, chills, shortness of breath, chest pain or calf pain noted. PCP: Warren Prieto DO Past Medical History: Diagnosis Date Abnormal Pap [...] age 3 Varicella zoster Well woman exam Past Surgical History: Procedure Laterality Date CHOLECYSTECTOMY 2008 Cholelithiasis COLPOSCOPY 2009 ASCUS Pos HPV PAP SMEAR 07/31/2015 Neg PAP SMEAR Abnormal- 02/03/15-LGSIL, 02/2015- ELISABET I; Colpo 2009- mild dysplasia PELVIC LAPAROSCOPY 2007 pelvic pain PELVIC LAPAROSCOPY 2018 [place] COLPOSCOPY,ENTIRE VAGINA,W/BIOPSY(S) 2009 abnormal pap smear TUBAL LIGATION 11/2019 UMBILICAL HERNIA REPAIR age 3 VAGINAL DELIVERY 2009 21 hr labor VAGINAL DELIVERY 2009 VAGINAL DELIVERY 2015 Social History Tobacco Use Smoking status: Former Types: Cigarettes Smokeless tobacco: Never Substance Use Topics Alcohol use: Never Comment: Caffeine: > 4 cups/day soda Family History Problem Relation Name Age of Onset Hypertension Mother Diabetes Father Diabetes Paternal Grandmother Diabetes Sibling No Known Problems Son No Known Problems Son No Known Problems Son No Known Problems Daughter No Known Problems Daughter No current outpatient medications on file. No current facility-administered medications for this visit. Levofloxacin and Levofloxacin in d5w Review of Systems: GENERAL: No weight loss, malaise or fevers. HEENT: Negative for frequent or significant headaches, vision changes, nose bleeds RESPIRATORY: Negative for cough, wheezing or shortness of breath. CARDIOVASCULAR: Negative for chest pain, leg swelling or palpitations. GI: Negative for abdominal discomfort, nausea, vomiting MUSCULOSKELETAL: +Right Foot Pain SKIN: +IGTN R Foot NEURO: Denies numbess, tingling or burning in feet Physical Exam: LMP 08/31/2024 (Approximate) Farzaneh is a pleasant, cooperative, well developed 33 y.o. adult female. The patient is alert and oriented to time, place and person. She has normal affect and mood. Vascular: DP and PT pulses are palpable. CFT less than 3 seconds to all digits. Skin temperature iswarm to warm from proximal to distal. Hair growth is noted. Right hallux edema noted. No varicosities noted. Neuro: Light touch intact. Derm: Skin texture and turgor within normal limits. Incurvation noted to the lateral border of the 1st digit, right foot. There is serous drainage. There is no erythema beyond the immediate affected nail fold. No evidence of ascending cellulitis. Webspaces 1-4 clean, dry, intact. No rashes, subcutaneous nodules, or open lesions noted. Musculoskeletal/Orthopaedic: General foot morphology: Rectus. No gross digital deformity noted. Pain on palpation noted to the lateral border of the 1st digit, right foot. Assessment: Encounter Diagnoses Name Primary? Ingrown toenail Yes Right foot pain Plan: A comprehensive history and physical examination were performed. Patient was educated on clinical and radiographic findings, diagnosis and treatment plans. Patient states that she understands all that has been explained and all questions were answered to their apparent satisfaction. Patient was educated on possible treatment options for ingrown toenail. Patient was educated on permanent nail avulsion procedure to the right hallux lateral nail border. Patient was educated on details of procedure as well as medically reasonable risks, benefits and complications. Verbal consent was obtained. Patient elects to proceed. Please see procedure note below. Home going instructions were dispensed to patient. Follow up in 2 weeks. Madi Alvares DPM After a discussion of the options, the patient elects to proceed with a permanent nail avulsion procedure of the lateral border of the right hallux today under local digital block. The risks, benefits, potential complications, personnel present, and alternatives were discussed. The patient elected to proceed. Patient properly identified. Procedure site marked. A timeout was performed. A digital block of the right 1st digit was performed using a total of 6 cc of 1% Lidocaine plain. Atourniquet was then placed overlying the digit. After a betadine prep, a blunt elevator was used tofree the offending nail border of the right 1st digit and a longitudinal sectioning was performed using an nail nipper. The offending portion of nail plate was avulsed. The nail border was then inspected to insure removal of entire offending nail plate and this was noted to be the case. A phenol swab was applied to the nail matrix area and nail border for 3 applications of 10 seconds each. Irrigation was then performed using copious amounts of alcohol. The tourniquet was then released and capillary refill to the digit was immediate. Bacitracin and dry sterile dressing was applied. Homegoing instructions were dispensed, including office and tank wagon operator contact numbers. documented in this encounterSaint Joseph Health [id number] Instructions* Patient Instructions* Hannah Tatum MA - 09/26/2024 9:30 AM EDT Nail Avulsion After Care Instructions POST-OPERATIVE NAIL AVULSION PATIENT INSTRUCTIONS Minimize your activity until the anesthesia wears off in about 2-8 hours. You may then increase your activity to tolerance. Avoid tight fitting shoes for the first 24-48 hours. Remove the bandage the day following surgery. If the bandage sticks to the operative site, soak the site in warm water. This should loosen the gauze and you may remove gently. Soak the operated toe in warm water and Epsom salts 2x/day for 15-20 minutes. Use 1-2 tablespoons of Epsom salts per quart of warm water. Soak daily until drainage stops. After soaking, apply antibiotic ointment to the operative area and cover with a cloth Band-Aid. If you experience pain, you may take Aspirin, Tylenol, Advil, or Aleve providing that you have no allergies or intolerances to these medications. The operative toe is expected to have mild drainage and bleeding. The entire healing time varies for each patient. Average healing time is 2-4 weeks. If questions or problems arise, please call the office. documented in this encounterSaint Joseph Health CenterZsujhtnafp96-15-2542 History of Present illness Narrative* Ellen Warren NP - 09/11/2024 10:20 AM EDT Images from the original note were not included. SUBJECTIVE: Farzaneh Marvin is a 33 y.o. female presents with chief complaint of No chief complaint on file. Pt presents for her ER follow up, was seen on Wednesday. Pt notes that she was seen for abdominal pain, runny nose and sore throat that started on Wednesday. Pt notes that she has gotten worse with URIsymptoms having a cough (started last night) causing the pain in her abdomin to worse. Pt notes that she did have labs done, Strep test, urine dip, and CAT scan of abdomin, all coming back normal. Review of Systems: Review of Systems All other systems reviewed and are negative. Current Medications: No current outpatient medications on file prior to visit. No current facility-administered medications on file prior to visit. I have reviewed and reconciled the history and medication list with the patient today. 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 Menorrhagia Obesity Pain in pelvis Sinusitis Thrombocytopenic disorder (CMS/HCC) Distal radius fracture Past Medical History: Past Medical History: Diagnosis Date Abnormal Pap [...] age 3 Varicella zoster Well woman exam Family History: Family History Problem Relation Name Age of Onset Hypertension Mother Diabetes Father Diabetes Paternal Grandmother Diabetes Sibling No Known Problems Son No Known Problems Son No Known Problems Son No Known Problems Daughter No Known Problems Daughter Allergies: Allergies Allergen Reactions Levofloxacin Hives Levofloxacin In D5w Surgical History: Past Surgical History: Procedure Laterality Date CHOLECYSTECTOMY 2008 Cholelithiasis COLPOSCOPY 2009 ASCUS Pos HPV PAP SMEAR 07/31/2015 Neg PAP SMEAR Abnormal- 02/03/15-LGSIL, 02/2015- ELISABET I; Colpo 2009- mild dysplasia PELVIC LAPAROSCOPY 2007 pelvic pain PELVIC LAPAROSCOPY 2018 [place] COLPOSCOPY,ENTIRE VAGINA,W/BIOPSY(S) 2009 abnormal pap smear TUBAL LIGATION 11/2019 UMBILICAL HERNIA REPAIR age 3 VAGINAL DELIVERY 2009 21 hr labor VAGINAL DELIVERY 2009 VAGINAL DELIVERY 2015 Social History: Social Drivers of Health Tobacco Use: Medium Risk (09/11/2024) Patient History Smoking Tobacco Use: Former Smokeless Tobacco Use: Never Passive Exposure: Not on file Alcohol Use: Not on file Financial Resource Strain: Not on file Food Insecurity: Not on file Transportation Needs: Not on file Physical Activity: Not on file Stress: Not on file Social Connections: Not on file Intimate Partner Violence: Not on file Depression: Not at risk (09/11/2024) PHQ-2 PHQ-2 Score: 0 Housing Stability: Not on file Health Literacy: Not on file OBJECTIVE: Visit Vitals BP 120/64 Pulse 90 Temp 97.1 F Ht 5' 5 Wt 207 lb LMP 08/31/2024 (Approximate) SpO2 98% BMI 34.45 kg/m Smoking Status Former BSA 2.08 m Physical Exam Constitutional: Appearance: Normal appearance. HENT: Head: Normocephalic and atraumatic. Right Ear: Tympanic membrane normal. Left Ear: Tympanic membrane normal. Nose: Rhinorrhea present. Mouth/Throat: Mouth: Mucous membranes are moist. Eyes: Extraocular Movements: Extraocular movements intact. Cardiovascular: Rate and Rhythm: Normal rate and regular rhythm. Pulses: Normal pulses. Heart sounds: Normal heart sounds. Pulmonary: Effort: Pulmonary effort is normal. Breath sounds: Normal breath sounds. No wheezing, rhonchi or rales. Abdominal: Palpations: Abdomen is soft. There is no mass. Tenderness: There is no abdominal tenderness. Comments: Mild muscle tenderness when contracted Musculoskeletal: Cervical back: Neck supple. Lymphadenopathy: Cervical: No cervical adenopathy. Skin: General: Skin is warm and dry. Neurological: General: No focal deficit present. Mental Status: She is alert. Psychiatric: Mood and Affect: Mood normal. Behavior: Behavior normal. Judgment: Judgment normal. Recent Results (from the past 24 hours) STATUS COVID-19/FLU Collection Time: 09/11/24 10:51 AM Result Value Ref Range FLU A negative FLU B negative SARS COV 2 RNA negative ASSESSMENT AND PLAN: Assessment/Plan Diagnoses and all orders for this visit: Viral URI - mpuhqcnzsbgelyh-whizqnyzdkneycc-YA 30-2-10 MG/5ML syrup; Take 5 mL by mouth 4 (four) times a day as needed for congestion for up to 10 days Cough, unspecified type - STATUS COVID-19/FLU Pt advised they have a viral illness. Advised on what OTC medications to take to treat fever, sore throat, body aches, sinus pain, cough, chest congestion, nose and sinus congestion, sneezing, runny nose, watery, itchy eyes, overall congestion relief, faster recovery and how to avoid spreading yourillness. Call or RTO if worsening or not improving as expected. Follow up if symptoms worsen or fail to improve. documented in this encounterSaint Joseph Health [id number] History of Present illness Narrative* LORELEI Crockett - 08/22/2024 11:20 AM EDT Images from the original note were not included. Subjective Patient ID: Farzaneh Marvin is a 33 y.o. female who presents for Annual Exam (Pt states she is here for a yearly wellness. Pt states that she will starting at [facility] and she will need the wellness for her health insurance. ). Wellness Examination Pt presents to the office for an annual wellness visit without any current complaints. She recentlyhad labs completed at [facility] [employer] and is not currently taking any [...] for annual wellness visit. Demographics were updated. Self- assessment was completed. Past medical, family and social [...] family history were discussed. documented in this encounterSaint Joseph Health CenterXvslpxejgx83-31-0806 History of Present illness Narrative* LORELEI Crockett - 08/18/2024 1:05 PM EDT Referral sent. documented in this encounterSaint Joseph Health [id number] History of Present illness Narrative* Karla Payne LPN - 08/15/2024 11:20 AM EDT Reason for Appointment: Patient ID: Farzaneh Marvin is a 33 [...] PELVIC LAPAROSCOPY 2006 pelvic pain PELVIC LAPAROSCOPY 2017 [place] COLPOSCOPY,ENTIRE VAGINA,W/BIOPSY(S) 2009 abnormal pap smear TUBAL [...] nursing note reviewed. Exam conducted with a news content specialist present. Vitals: Estimated body mass index is [...] of: Jaxson Gonzales DO documented in this encounterSaint Joseph Health [id number] History of Present illness Narrative* LORELEI Crockett - 05/22/2024 2:20 PM EST Images from the original note were not included. Subjective Patient ID: Farzaneh Marvin is a 33 y.o. female who presents for Follow-up (Pt. States she has aningrown toe nail and she pulled the ingrown toe nail out. Pt states that she thinks the area is infected now. Pt was also wondering if she can get something for the yellowing of her toenails as well.). Toe Pain There was no injury mechanism. [...] by mouth in the morning and 1 capsule(500 mg) in the evening and 1 capsule [...] concerns. Pt verbalized understanding. documented in this encounterSaint Joseph Health [id number] History of Present illness Narrative* LORELEI Whaley - 01/12/2024 3:30 PM EDT HPI: Historian of HPI: patient Farzaneh Marvin is a 33 y.o. female who presents today to the Urgent Care with the following complaints and denials which have been present for 2 day(s). Pt also c/o nausea and did vomit x1 last night and loose stools x4-5 today. Non- bloody, has had 5 BM today. Denies any recent medication changes or new meds, fevers, chills, myalgias, blood in vomit. Admits nasal congestion. Denies cough, sob,sore throat, wheezing. Pt denies current /. C/O [...] do not improve. Patient advised to follow-up withPCP in 3-5 days. All questions/concerns addressed. Patient voiced understanding and agreement with the plan. covid swab in house negative. documented in this encounterSaint Joseph Health [id number] NoteOPERATIVE NOTE OPERATION DATE: 10/09/2021 PROCEDURE: Juhi endometrial ablation with hysteroscopy. PREOPERATIVE DIAGNOSIS: Menorrhagia. POSTOPERATIVE DIAGNOSIS: Menorrhagia. ANESTHESIA: General. SURGEON: Jaxson Gonzales M.D. SPEECH PROFESSOR: None. FINDINGS: Normal appearing endometrium. Both ostia [...] Patient taken to recovery in stable condition. [facility] Signed and Approved by: DR JAXSON GONZALES . 10/13/2021 07:35:00[facility] note* Clinical Note Date No Information [facility] Work Phone: Discharge summary* Clinical Note Date No Information [facility] Work Phone: Evaluation note* Diagnosis Onset Date Resolution Status COVID acuteContact with and (suspected) exposure to covid-19noneactiveSore throat noneactive [facility] Work Phone: Evaluation note* Diagnosis Viral syndrome- Primary Unspecified viral infection, in conditions classified elsewhere and of unspecified site documented in this encounter [facility] HealthcareEvaluation note* Diagnosis Paronychia of great toe of right foot- Primary Toenail fungus documented in this encounter [facility] HealthcareEvaluation noteNo assessment information availableClinton [facility] Work Phone: Evaluation note* Diagnosis Paronychia of toe, unspecified laterality- Primary documented in this encounter [facility] HealthcareEvaluation note* Diagnosis Well woman exam with routine gynecological exam Routine gynecological examination Menorrhagia with regular cycle History of endometrial ablation documented in this encounter [facility] HealthcareEvaluation note* Diagnosis Annual wellness visit- Primary documented in this encounter [facility] HealthcareEvaluation note* Diagnosis Viral URI- Primary Acute upper respiratory infections of unspecified site Cough, unspecified type documented in this encounter [facility] HealthcareEvaluation note* Diagnosis Ingrown toenail- Primary Ingrowing nail Right foot pain Pain in soft tissues of limb documented in this encounter [facility] HealthcareEvaluation note* Diagnosis Onset Date Resolution Status Admit Date Dysuria noneactiveSept2024 12:24pm [facility] Work Phone: Evaluation note* Diagnosis Pre-op examination Menorrhagia with regular cycle Pelvic pain in female Unspecified symptom associated with female genital organs Dysmenorrhea Dyspareunia, female HGSIL (high grade squamous intraepithelial lesion) on Pap smear of cervix documented in this encounter [facility] HealthcareHistory and physical note* Clinical Note Date No Information [facility] Work Phone: History of Past illness Narrative* Condition Effective Dates (start - stop) O utcome No Information [facility] Work Phone: Instructions* Date Instruction Additional Infor mation No Information [facility] Work Phone: Progress note* Clinical Note Date No Information [facility] Work Phone: Reason for referral (narrative)* Reason For Referral No Information [facility] Work Phone: Reason for referral (narrative)No reason for referral information availableS[facility] Work [facility]: Review of systems Narrative - Reported* System Pos/Neg Findings No Information [facility] Work Phone: Advance Directives Advance Directive Response Recorded Date/ Time Advance Directives No March 29, 2018 5:45pm Advance Directive Response Recorded Date/ Time Advance Directives No March 29, 2018 6:45pm Directive Yes / No Effective Date File Name No Information Chief Complaint and Reason for Visit Chief Complaint Lower L side back pa in Chief Complaint Sinus congestion Reason for Visit COVID Contact with and (suspected) exposure to covid-19 Sore throat Chief Complaint Admit Date Pre Emp labs August 14, 2024 8:5 9am Chief Complaint Admit Date Pre Emp labs August 14, 2024 8:5 9am Unknown September 05, 2024 10: 49am Chief Complaint Admit Date Dysuria February 10, 2025 12:24pm Reason for Visit Admit Date Dysuria February 10, 2025 12:24pm Chief Complaint Admit Date Dysuria February 10, 2025 12:24pm R30.0 February 10, 2025 12:35pm Z23 March 02, 2025 9 :00am Reason for Visit Admit Date Acute UTI February 10, 2025 12:24pm Assessments No Assessments Information Available Summary Purpose Family History Family Member Type Diagnosis Age At Onset No Information Additional Source Comments INFORMATION SOURCE (unrecogn ized section and content) DATE CREATED AUTHOR 06/25/2022 [facility] DATE CREATED AUTHOR AUTHOR'S ORGANIZ ATION 12/30/2024 [facility] DATE CREATED AUTHOR AUTHOR'S ORGANIZ ATION 03/06/2025 [facility] DATE CREATED AUTHOR AUTHOR'S ORGANIZ ATION 03/12/2025 [facility] EPIC Care Teams (unrecognized sec tion and content) Team Status: Active Member Role Status Dates Gabino Prieto DO Primary Care Provider Active Team Status: Inactive Member Role Status Dates Gabino Prieto DO Primary Care Provider Active Start: February 02, 2024 End: February 01jarrod Shell [facility] , APRNAttenjimmy ProviderActiveStart: February 02, 2024 End: February 02, 2024Team MemberRelationshipSpecialtyStart DateEnd Date Warren Prieto DO [address] [place] [address] PCP - GeneralFamily Medicine09/29/22Team MemberRelationshipSpecialtyStart DateEnd Date Warren Prieto DO [address] [place] [address] [facility] - [facility]09/29/22Team MemberRelationshipSpecialtyStart DateEnd Date Warren Prieto DO [address] [place] [address] PCP - GeneralFamily Medicine09/29/22 Team Status: Inactive Member Role Status Dates G. Raymundo Prieto DO Primary Care Provider Active Start: August 14, 2024 End: August 14, 2024Wes John Jr, DOAttsandi ProviderActiveStart: August 14, 2024 End: August 14, 2024Team MemberRelationshipSpecialtyStart DateEnd Date Warren Prieto DO [address] [place] [address] PCP - GeneralFamily Medicine09/29/22Team MemberRelationshipSpecialtyStart DateEnd Date Warren Prieto DO [address] [place] [address] PCP - GeneralFamily Medicine09/29/22Team MemberRelationshipSpecialtyStart DateEnd Date Warren Prieto DO [address] [place] [address] PCP - GeneralFamily Medicine09/29/22Team MemberRelationshipSpecialtyStart DateEnd Date Warren Prieto DO [address] [place] [address] PCP - GeneralFamily Medicine09/29/22Team MemberRelationshipSpecialtyStart DateEnd Date Warren Prieto, DO [address] [place] [address] PCP - Generalmily Medicine09/29/22Team MemberRelationshipSpecialtyStart DateEnd Date Warren Prieto DO [address] [place] [address] PCP - Generalmily Medicine09/29/22Team MemberRelationshipSpecialtyStart DateEnd Date Warren Prieto DO [address] [place] [address] PCP - GeneralFamily Medicine09/29/22 Team Status: Inactive Member Role Status Dates Jaxson Gonzales DO Attending Provider Active Start : September 05, 2024 End: September 05, 2024Team MemberRelationshipSpecialtyStart DateEnd Date Warren Prieto DO [address] [place] [address] PCP - GeneralFamily Medicine09/29/22Team MemberRelationshipSpecialtyStart DateEnd Date Warren Prieto DO [address] [place] [address] PCP - GeneralFamily Medicine09/29/22 Name Effective Dates (start - stop) Status Members No Information Team Status: Inactive Member Role Status Dates Tania Dove APRN Attending Provider Active Start: February 10, 2025 End: February 10, 2025G. Prerna Cadena Care ProviderActiveStart: February 10, 2025 End: February 10, 2025 Team Status: Inactive Member Role Status Dates Tania Dove APRN Attending Provider Active Start: February 10, 2025 End: February 10, 2025 Team Status: Inactive Member Role Status Dates Adeel Singh [facility] , DO [facility] Attending Provider Active Start: March 02, 2025 End: March 02, 2025Team MemberRelationshipSpecialtyStart DateEnd Date Warren Prieto DO [address] [place] [address] [facility] - [facility]09/29/22 Goals (unrecognized section and content) Health Concern Goal Type Priority Status No Information Reason for Visit (unrecogniz ed section and content) ReasonCommentsFollow-upPt. States she has an ingrown toe nail and she pulled the ingrown toe nail out. Pt states that she thinks the area is infected now. Pt was also wondering if she can get something for the yellowing ofher toenails as well.ReasonCommentsWell Women VisitReasonCommentsAnnual ExamPt states she is here for a yearly wellness. Pt states that she will starting at [employer] [facility] [employer] and she will need the wellness for her health insurance.ReasonCommentsPre-op Visit Endometrial Biopsy FOR RECORDS PERTAINING TO PATIENTS WHO ARE [...] BE BASED ON THE PRIMARY CLINICAL RECORDS. [employer] provides no warranty or guarantee of the accuracy or completeness of information in this document.
[2025-03-20 17:08] LABS: Age Gdln ACOG Testing Note (.); HPV Genotype 18,45 Positive (Negative); IGP, Aptima HPV, rfx 16/18,45 Note (.)
== END 2025-03-13 12:18 | disposition home or self-care (01) ==
LOC: LAB 12:17
PROVIDERS: PCP Family Medicine; Visit Provider Obstetrics & Gynecology
DX: R87.612 Low grade squamous intraepithelial lesion on cytologic smear of cervix (LGSIL) (principal)
CPT/HCPCS: 87624; 88175

== ENCOUNTER 2025-04-02 09:52 | Outpatient (OUT) | payer MEDICAID, SELFPAY ==
--- OUTSIDE RECORDS SUMMARY | 2025-04-02 09:56 | XMS_ITS | Encounter Summary ---
Author Organization [facility] Address [address] [place] [address] Care Team Providers Care Debone Supervisor Name Role Phone Warren Prieto DO Primary Care Provider [phone] Encounter Details DateTypeDepartmentCare Team (Latest Contact Info)Xzuujqhyfrf94/05/2025Orders Only [facility] [address] [place] [address] Beatriz De Los Santos LPN [address] [facility] [place] [id number] Social History Tobacco UseTypesPacks/DayYears UsedDateSmoking Tobacco: FormerCigarettes Smokeless Tobacco: NeverAlcohol UseStandard Drinks/WeekCommentsNever0 (1 standard drink = 0.6 oz pure alcohol)Caffeine: > 4 cups/day sodaPHQ-2AnswerDate RecordedPatient Health Questionnaire-2 [place]491CommentsUnknown Sex and Gender InformationValueDate RecordedSex Assigned at BirthNot on file Legal HxoMjnpdl21/15/2023 6:48 PM EDTGender IdentityNot on fileSexual OrientationNot on filedocumented as of this encounter Plan of Treatment Not on file documented as of this encounter Procedures Procedure NamePriorityDate/TimeAssociated DiagnosisCommentsPAP TEST, EXTERNAL Kfwomci4303/13/2025 12:00 AM EDTdocumented in this encounter Results * (ABNORMAL) PAP TEST, EXTERNAL (03/13/2025 12:00 AM EDT) Narrative Authorizing ProviderResult TypeResult StatusFazio Nurse [facility] Ob[facility] CYTOLOGY ORDERABLESFinal ResultPerforming OrganizationAddressCity/State/ZIP CodePhone Number EXTERNAL LAB documented in this encounter Visit Diagnoses Not on filedocumented in this encounter Care Teams Team MemberRelationshipSpecialtyStart DateEnd Date Warren Prieto DO [address] [facility] [address] [place] [id number] PCP - GeneralFamily Medicine09/29/22documented as of this encounter
--- OUTSIDE RECORDS SUMMARY | 2025-04-02 09:56 | XMS_ITS | Encounter Summary ---
Author Organization [facility] Address [address] [place] [address] Care Team Providers Care Data Processing Specialist Name Role Phone Warren Prieto Primary Care Provider Encounter Details DateTypeDepartmentCare Team (Latest Contact Info)Hpbtfluuzff00/21/2025Clinisync Result Encounter [facility] External Department Unsolicited Jaxson Gonzales DO [address] [facility] [place] [address] Social History Tobacco UseTypesPacks/DayYears UsedDateSmoking Tobacco: FormerCigarettes Smokeless Tobacco: NeverAlcohol UseStandard Drinks/WeekCommentsNever0 (1 standard drink = 0.6 oz pure alcohol)Caffeine: > 4 cups/day sodaPHQ-2AnswerDate RecordedPatient Health Questionnaire-2 Lsjtq123CommentsUnknown Sex and Gender InformationValueDate RecordedSex Assigned at BirthNot on file Legal MzqSuuwgy53/15/2023 6:48 PM EDTGender IdentityNot on fileSexual OrientationNot on filedocumented as of this encounter Plan of Treatment Not on file documented as of this encounter Procedures Procedure NamePriorityDate/TimeAssociated DiagnosisCommentsIGP,APTIMA HPV,AGE JVDMYlsujuj28/21/2025 10:29 AM EDT documented in this encounter Results * (ABNORMAL) IGP,APTIMA HPV,AGE GDLN (03/13/2025 10:29 AM EDT)ComponentValueRef RangeTest MethodAnalysis TimePerformed AtPathologist SignatureAGE GDLN ACOG TESTINGNote.TBHComment: ?? TESTS ? RESULT ??FLAG ??UNITS ?REF RANGE ??LAB ?? Clinician Provided Cytology Information ?? Source.............Cervix;Endocervix ?? No. of containers..01 ThinPrep Vial Age Algo ACOG Paula... ??30-65 ? 01 ?FLAG LEGEND: ?L-Low Normal,H-High Normal,LL-Alert Low,HH-Alert High <-Panic Low,>-Panic High,A-Abnormal,AA-Critical Abnormal Performed at: 01 =G ?[facility] ?? [address] [place], [place] ??[address] ?? Wendy Kumar MD, IGP, APTIMA HPV, RFX 16/18,45Note.TBHComment: ?? TESTS ? RESULT ??FLAG ??UNITS ?REF RANGE ??LAB DIAGNOSIS: ?02 ?? NEGATIVE FOR INTRAEPITHELIAL LESION OR MALIGNANCY. ?? REACTIVE CELLULAR CHANGES AND/OR REPAIR ARE PRESENT. Specimen adequacy: ?02 ?? Satisfactory for evaluation. ??Endocervical and/or squamous metaplastic ?? cells (endocervical component) are present. Performed by: ? 02 ?? Radha Lake, Superintendent Maintenance (ASCP) Electronically si... ?02 ?? Pedro Padilla MD, Pathologist . ? 02 Note: ? Note ?02 ?? The Pap smear is a screening test designed to aid in the ?? detection of premalignant and malignant conditions of the ?? uterine cervix. ??It is not a diagnostic procedure and ?? should not be used as the sole means of detecting cervical ?? cancer. ??Both false-positive and false-negative reports do ?? occur. Test Methodology: ? Note ?02 ?? This liquid based ThinPrep(R) pap test was interpreted ?? using the Lightwire(R) Genius(TM) Cervical Algorithm whole ?? slide imaging system. HPV Genotype Reflex ?? Note ?02 ?? Criteria met, see HPV Genotype results. ?FLAG LEGEND: ?L-Low Normal,H-High Normal,LL-Alert Low,HH-Alert High <-Panic Low,>-Panic High,A-Abnormal,AA-Critical Abnormal Performed at: 02 WB [facility] ?? [address] [place], [place] ??[phone] ?? Wendy Kumar MD, HPV APTIMAPositive(A)NegativeTBHComment: This nucleic acid amplification test detects fourteen high- risk HPV types (16,18,31,33,35,39,45,51,52,56,58,59,66,68) without differentiation. HPV GENOTYPE 16NegativeNegativeTBHHPV GENOTYPE 18,45Positive(A)NegativeTBH Comment: Performed at: ??=G - [facility] ??[id number] Char Conveyor Tender Cellar: Wendy Kumar MD, Phone: ??[phone] Performed at: ??WB - [address] ??[id number] Char Conveyor Tender Cellar: Wendy Kumar MD, Phone: ??[phone] Specimen (Source)Anatomical Location / LateralityCollection Method / Volume Collection TimeReceived Time03/13/2025 10:29 AM EDT1 12:26 PM EDT Narrative [facility] - 03/20/2025 5:08 PM EDT BRUSH-SPATULA CERVIX ENDOCERVIX Authorizing ProviderResult TypeResult StatusCorey Christian DOLAB BLOOD ORDERABLES Final ResultPerforming OrganizationAddressCity/State/ZIP CodePhone Number [facility] documented in this encounter Visit Diagnoses Not on filedocumented in this encounter Care Teams Team MemberRelationshipSpecialtyStart DateEnd Date Warren Prieto DO [address] [address] PCP - GeneralFamily Medicine09/29/22documented as of this encounter
--- OUTSIDE RECORDS SUMMARY | 2025-04-02 09:56 | XMS_ITS | Clinical Summary ---
Author Organization [facility] Address [address] [place] [address] Phone Care Team Providers Care Armoring Machine Operator Name Role Phone Unavailable Primary Care Provider Unavailabl e Social History Tobacco UseTypesPacks/DayYears UsedDateSmoking Tobacco: Never Assessed CommentsUnknownSex and Gender InformationValueDate RecordedSex Assigned at Not on fileLegal ZcwYaywle86/26/2022 6:29 PM ESTGender IdentityNot on fileSexual OrientationNot on file Plan of Treatment Not on file
--- OUTSIDE RECORDS SUMMARY | 2025-04-02 09:56 | XMS_ITS | Clinical Summary ---
Author Organization [facility] Address [address] [facility], [address] [place] [address] Care Team Providers Care Renovator Machine Operator Name Role Phone MadieWarren archer Primary Care Provider [phone] Allergies Active AllergyReactionsCriticalityNoted DateCommentsLevofloxacin In D5w 08/09/2013 Medications MedicationSigDispense QuantityRefillsLast FilledStart DateEnd DateStatus ibuprofen (ADVIL;MOTRIN) 200 MG tablet Take 200 mg by mouth every 6 hours as needed for Pain.Active Active Problems ProblemNoted DateDiagnosed DateDistal radius bssivcaa34/10/2014 Social History Tobacco UseTypesPacks/DayYears UsedDateSmoking Tobacco: FormerAlcohol Use Standard Drinks/WeekCommentsNo0 (1 standard drink = 0.6 oz pure alcohol) CommentsNoSex and Gender InformationValueDate RecordedSex Assigned at BirthNot on fileLegal FzzQmnwub74/10/2013 10:16 AM ESTGender IdentityNot on fileSexual OrientationNot on file Last Filed Vital Signs Vital SignReadingTime TakenCommentsBlood Anxrdthr995/7404 2:47 PM EDT Vugux176008/09/2013 11:15 AM FNBRcnpwmluike51.6 ??C (97.9 ??F)08/09/2013 11:15 AM EDTRespiratory Gpom378708/09/2013 11:15 AM EDTOxygen Dgyvbxpsny70%08/09/2013 11:15 AM EDTInhaled Oxygen Concentration--Sjocfe51 kg (130 lb 1.1 oz)09/14/2013 2:54 PM CJEPkwrxv394 cm (5' 4.96 )09/14/2013 2:54 PM EDTBody Mass Index21.67 09/14/2013 2:54 PM EDT Plan of Treatment Not on file Care Teams Team MemberRelationshipSpecialtyStart DateEnd Date Warren Prieto DO [address] [place] [address] [facility] - General08/09/13
--- OUTSIDE RECORDS SUMMARY | 2025-04-02 09:56 | XMS_ITS | Clinical Summary ---
Author Organization [facility] Address [address] [place] [address] Care Team Providers Care Lighting Director Name Role Phone Warren Prieto DO Primary Care Provider [phone] Allergies Active AllergyReactionsCriticalityNoted XtgtDszpwnamYpmgbrzpruzgAchst95/18/2023 Levofloxacin In D5w08/09/2013 Medications No known medications Active Problems ProblemNoted DateDiagnosed DateHuman papilloma virus (HPV) ihdavojdy28/18/2023 Liver lesion, right lobe02/08/2023Low grade squamous intraepithelial lesion (LGSIL) on cervicovaginal cytologic smear02/08/20232322Aipmmyesmmo94/18/2023Obesity 3Pain in hofmvj3002/08/20231387Slyesbejj13/18/2023Thrombocytopenic disorder 3Distal radius ymqstsur06/10/2014 Encounters DateTypeDepartmentCare LrfpDnlxrtwhsvb35/05/2025Orders Only [facility] [address] [facility] [place] [address] Beatriz De Los Santos LPN 03/14/2025bstract [facility] [address] [place] [address] Adia Murphy MA 03/13/2025 10:40 AM EDTProcedure Visit [facility] [address] [facility] [place] [address] Christian, Jaxson, DO LGSIL of cervix of undetermined significance; Menorrhagia with regular cycle; Dyspareunia in female; Pelvic pain; History of endometrial jotubbtu47/21/2025linisync Result Encounter [facility] External Department Unsolicited Jaxson Gonzales DO 03/13/2025amboo flowsheet [facility] OBSANTIAGO [address] [facility] [place] [address] Jaxson Gonzales DO 03/12/2025 9:30 AM EDTProcedure Visit [facility] [address] [facility] [place] [address] Jaxson Gonzales DO Pre-op examination; Menorrhagia with regular cycle; Pelvic pain in female; Dysmenorrhea; Dyspareunia, female; HGSIL (high grade squamous intraepithelial lesion) on Pap smear of cervixfrom Last 3 Months Immunizations ImmunizationAdministration DatesNext HzpWGK9106/25/1991,12/02/1990,04/22/1990, 01/31/1990Hib (PRP-T)03/31/1991,12/02/1990IPV106/25/1991,04/22/1990,01/31/1990 Influenza, seasonal, injectable, preservative free08/14/2024MMR106/25/1991, 03/31/1991Meningococcal YXE4K1910/05/2006Tdap11/19/2014 Family History Medical HistoryRelationNameCommentsNo Known ProblemsDaughter 1No [...] > 4 cups/day sodaPHQ-2AnswerDate RecordedPatient Health Questionnaire-2 Fimwu189CommentsUnknownSex and Gender InformationValueDate RecordedSex Assigned at BirthNot on fileLegal SexFemale 08/05/2022 6:48 PM EDTGender IdentityNot on fileSexual OrientationNot on file Last Filed Vital Signs Vital SignReadingTime TakenCommentsBlood Nerefwha934/801 10:32 AM EDT Yxjac008809/11/2024 10:23 AM EPUMoxrgihecdd94.2 ??C (97.1 ??F)09/11/2024 10:23 AM EDTRespiratory Rate--Oxygen Djpizsosty57%09/11/2024 10:23 AM EDTInhaled Oxygen Concentration--Bizjee39.3 kg (210 lb)03/13/2025 10:32 AM KXEPncucm788.1 cm (5' 5 )09/11/2024 10:23 AM EDTBody Mass Index34.95009/11/2024 10:23 AM EDT Plan of Treatment Health MaintenanceDue DateLast DoneCommentsHPV/Wnnycg325005/30/2019COVID- 19 Vaccine ( season)ervical Cancer Screening 03/13/2028Pap Smear, 08/15/2024Influenza VaccineCompleted 03/02/2025, 08/14/2024Pneumococcal Vaccine: Pediatrics (0 to 5 Years) and At- Risk Patients (6 to 64 Years)Aged OutNo longer eligible based on patient's age to complete this topic Procedures Procedure NamePriorityDate/TimeAssociated DiagnosisCommentsIGP,APTIMA HPV,AGE ERQJVaodobf21/21/2025 10:29 AM EDT PAP TEST, APPNHKFDBlyrusn69/21/2025 12:00 AM EDTPOCT , URINERoutine 03/12/2025 9:44 AM EDT Pre-op examination Menorrhagia with regular cycle Pelvic pain in female Dysmenorrhea Dyspareunia, female HGSIL (high grade squamous intraepithelial lesion) on Pap smear of cervix THIN PREP (R) TIS W/RFL IF ASCUS HPV CVRARlsksnf39/07/2020 12:00 PM EST from Last 3 Months or Most Recently Relevant to Health Maintenance Results * (ABNORMAL) IGP,APTIMA HPV,AGE GDLN (03/13/2025 10:29 AM EDT)ComponentValueRef RangeTest MethodAnalysis TimePerformed AtPathologist SignatureAGE GDLN ACOG TESTINGNote.TBHComment: ?? TESTS ? RESULT ??FLAG ??UNITS ?REF RANGE ??LAB ?? Clinician Provided Cytology Information ?? Source.............Cervix;Endocervix ?? No. of containers..01 ThinPrep Vial Age Algo ACOG Paula... ??30-65 ? 01 ?FLAG LEGEND: ?L-Low Normal,H-High Normal,LL-Alert Low,HH-Alert High <-Panic Low,>-Panic High,A-Abnormal,AA-Critical Abnormal Performed at: 01 =G ?[facility] ?? [address] ??[phone] ?? Wendy Kumar MD, IGP, APTIMA HPV, RFX 16/18,45Note.TBHComment: ?? TESTS ? RESULT ??FLAG ??UNITS ?REF RANGE ??LAB DIAGNOSIS: ?02 ?? NEGATIVE FOR INTRAEPITHELIAL LESION OR MALIGNANCY. ?? REACTIVE CELLULAR CHANGES AND/OR REPAIR ARE PRESENT. Specimen adequacy: ?02 ?? Satisfactory for evaluation. ??Endocervical and/or squamous metaplastic ?? cells (endocervical component) are present. Performed by: ? 02 ?? Radha Lake, Project Controller (ASCP) Electronically si... ?02 ?? Pedro Padilla [...] pap test was interpreted ?? using the Zizerones(R) Collecta(TM) Cervical Algorithm whole ?? slide imaging system. HPV Genotype Reflex ?? Note ?02 ?? Criteria met, see HPV Genotype results. ?FLAG LEGEND: ?L-Low Normal,H-High Normal,LL-Alert Low,HH-Alert High <-Panic Low,>-Panic High,A-Abnormal,AA-Critical Abnormal Performed at: 02 WB ?[facility] ?? [address] [place] ??[phone] ?? Wendy Kumar MD, HPV APTIMAPositive(A)NegativeTBHComment: This nucleic acid amplification test detects fourteen high- risk HPV types (16,18,31,33,35,39,45,51,52,56,58,59,66,68) without differentiation. HPV GENOTYPE 16NegativeNegativeTBHHPV GENOTYPE 18,45Positive(A)NegativeTBH Comment: Performed at: ??=G - [facility] [place] [address] [facility] [place], [place] ??[id number] Hr Systems Analyst: Wendy Kumar MD, Phone: ??[phone] Performed at: ??WB - [facility] [address] [facility] [place], [place] ??[id number] Hr Systems Analyst: Wendy Kumar MD, Phone: ??[phone] Specimen (Source)Anatomical Location / LateralityCollection Method / Volume Collection TimeReceived Time03/13/2025 10:29 AM EDT1 12:26 PM EDT Narrative [facility] - 03/20/2025 5:08 PM EDT BRUSH-SPATULA CERVIX ENDOCERVIX Authorizing ProviderResult TypeResult StatusCorey Christian DOLAB BLOOD ORDERABLES Final ResultPerforming OrganizationAddressCity/State/ZIP CodePhone Number [facility] * (ABNORMAL) PAP TEST, EXTERNAL (03/13/2025 12:00 AM EDT) Narrative Authorizing ProviderResult TypeResult StatusFazio Nurse [facility] ObLAB CYTOLOGY ORDERABLESFinal ResultPerforming OrganizationAddressCity/State/ZIP CodePhone Number EXTERNAL LAB * POCT , urine manually resulted (03/12/2025 9:44 AM EDT)ComponentValue Ref RangeTest MethodAnalysis TimePerformed AtPathologist SignaturePreg Test, UrNegativeNegativeSpecimen (Source)Anatomical Location / LateralityCollection Method / VolumeCollection TimeReceived LiuzPbhnd78/20/2025 9:44 AM EDT Narrative Authorizing ProviderResult TypeResult StatusCorey Christian DOPOINT OF CARE TEST ENTER/EDIT ORDERABLESFinal Result * THIN PREP (R) TIS W/RFL IF ASCUS HPV MRNA (05/30/2019 12:00 PM EST)Component ValueRef RangeTest MethodAnalysis TimePerformed AtPathologist SignatureRESULTS SSIECW NONXML LABSSpecimen (Source)Anatomical Location / LateralityCollection Method / VolumeCollection TimeReceived Time05/30/2019 12:00 PM EST Narrative Authorizing ProviderResult TypeResult StatusGeorge R Evonan DOECW LABSFinal ResultPerforming OrganizationAddressCity/State/ZIP CodePhone Number ECW NONXML LABS from Last 3 Months or Most Recently Relevant to Health Maintenance Insurance MemberSubscriberPlan / Payer (Effective 2022-Present)Name:Farzaneh Marvin Relation to Subscriber:SelfName:Farzaneh Marvin Payer ID:Not on file Group ID:[id number] Type:Not on file Address: [facility] [address] [place] [id number] Care Teams Team MemberRelationshipSpecialtyStart DateEnd Date Warren Prieto DO [address] [place] [address] PCP - GeneralFamily Medicine09/29/22
--- OUTSIDE RECORDS SUMMARY | 2025-04-02 10:01 | XMS_ITS | CCD ---
Author Organization [facility] Care Team Providers Care Truck Assembler Name Role Phone Gabino Prieto Primary Care [...] Care Provider Wes John DO Attending Provider Jaxson Gonzales DO Attending Provider [phone] Kanani DMD, Genaro Attending Unavailable Warren Prieto DO Primary Care Unavailable Kanani DMD, Genaro Unavailable Unavailable Tania Dove APRN Attending Provider [phone] Gabino Prieto DO Primary Care Provider [phone] [facility] Adeel CORREA Attending Provider Jaxson Gonzales DO Attending Provider JAXSON GONZALES Attending Unavailable JAXSON GONZALES Attending Unavailable CORRINE LAMAR Attending Unavailable JAXSON GONZALES Attending Unavailable MADI ALVARES Attending UnavailELLEN Pina Attending Unavailable CORRINE LAMAR Attending Unavailable JAXSON GONZALES Attending Unavailable JacobMary [facility]ckinridge HospitalAdeel Admitting Unavailable Dandy Adeel QUINN Attending Unavailable Jaxson Gonzales Admitting Unavailable Jaxson Gonzales Attending Unavailable Jaxson Gonzales Admitting Unavailable Jaxson Gonzales Attending Unavailable Wes John Jr Attending Unavailable Gabino Prieto Primary Care Unavailable Wes John Jr Admitting Unavailable Tania Dove Admitting Unavailable Tania Dove Attending Unavailable [facility] Admitting Unavailable [facility] Attending Unavailable Unavailable Unavailable Unavailable Allergies Allergy ClassificationReported Allergen(s)Allergy TypeDate of OnsetReaction(s) Facility (20 sources)levoFLOXacin; Translations: [levofloxacin]Drug Rcbhgef10-39-4710 [facility] (1 source)levoFLOXacinDrug Wukdqls82-69-8307[facility] (15 sources)levoFLOXacinDrug Dnnvceh04-16-2006[facility] Medications Current Medications MedicationDrug Class(es)DatesSig (Normalized)Sig (Original)benzonatate 100 mg oral capsule (2 sources)Non-narcotic AntitussiveStart: 07-05-2024 End: 65-14-0671nnjx 1 capsule by mouth three times daily as needed for cough benzonatate (Tessalon) 100 MG capsule TAKE 1 CAPSULE BY MOUTH 3 TIMES A DAY NEEDED FOR COUGH 07/05/2024 08/22/2024 Discontinuedbrompheniramine maleate 0.4 mg/ml / dextromethorphan hydrobromide 2 mg/ml / pseudoephedrine hydrochloride 6 mg/ml oral solution (4 sources)alpha-Adrenergic Agonist, Uncompetitive F-nrwekc-T-aspartate Receptor Antagonist, Sigma-1 AgonistStart: 09-11-2024 End: 06-62-7221evcj 5 mL by mouth four times daily as needed for congestion ralyewijigitlyn-wdqxwilvrqbgata-MF 30-2-10 MG/5ML syrup Indications: Viral URI Take 5 mL by mouth 4(four) times a day as needed for congestion for up to 10 days 120 mL 09/11/2024 09/26/2024 Discontinued (Discontinued by another clinician)cephalexin 500 mg oral capsule (2 sources)Cephalosporin AntibacterialStart: 05-22-2024 End: 20-95-4027qayp 1 capsule by mouth in the morning, [...] 12 hr tablet (2 sources)Start: 07-05-2024 End: 98-06-4555slhj 5-120 mg by mouth every twelve hours as neededCVS Allergy Relief D 5-120 MG 12 hr tablet TAKE 1 TAB ORALLY EVERY 12 HOURS NEEDED FOR NASAL CONGESTION 07/05/2024 08/22/2024 Discontinuedibuprofen 200 mg oral tablet (2 sources)Nonsteroidal Anti-inflammatory Drug End: 21-73-9016seqe 1 tablet by mouth every six hours as neededibuprofen 200 MG tablet Take 200 mg by mouth every 6 (six) hours if needed 08/22/2024 DiscontinuedNirmatrelvir-Ritonavir (Paxlovid) 300 mg (150 mg x 2)-100 mg tablets,dose pack (6 sources)Start: 86-79-7042Hrekgjkjotsp-Ritonavir (Paxlovid) 300 mg (150 mg x 2)-100 mg tablets,dose pack Active 0 PO .WGHKYZM41 February 02, 2024 12:00am take TWO 150 mg tablets of nirmatrelvir with ONE 100 mg tablet of ritonavir twice daily for 5 days POStart: 02-02-2024 End: 20-77-4307Xghjqaiemiau-Ritonavir (Paxlovid) 300 mg (150 mg x 2)-100 mg tablets,dose pack Discontinued 0 PO .COMPLEX February 02, 2024 12:00am February 02, 2024 6:58pm take TWO 150 mg tablets of nirmatrelvir with ONE 100 mg tablet of ritonavir twice daily for 5 days POnitrofurantoin, macrocrystals 25 mg / nitrofurantoin, monohydrate 75 mg oral capsule (3 sources)Nitrofuran AntibacterialStart: 67-97-0846rxdu 1 capsule by mouth every twelve hours at mealtimeNo Name (No Known Home Meds) (1 source)Start: 89-21-9005Yy Name (No Known Home Meds) Active February 10, 2025 12:00amPaxlovid, 300/100, 20 x 150 MG & 10 x 100MG tablet therapy pack (2 sources)Start: 02-02-2024 End: 99-11-9740Bekwkzdd, 300/100, 20 x 150 MG & 10 x 100MG tablet therapy pack TAKE 3 TABLETS TOGETHER (TWO 150 MG NIRMATRELVIR TABLETS AND ONE 100 MG RITONAVIR TABLET) BY MOUTH TWICE DAILY FOR 5 DAYS. 02/02/2024 08/22/2024 Discontinuedphenazopyridine hydrochloride 200 mg oral tablet (4 sources)Start: 48-83-5178pfsx 1 tablet by mouth three times daily as needed for painsulfamethoxazole 800 mg / trimethoprim 160 mg oral tablet (4 sources)Dihydrofolate Reductase Inhibitor Antibacterial, Sulfonamide AntimicrobialStart: 80-13-6376ixgv 1 tablet by mouth every twelve hours Completed/Discontinued Medications MedicationDrug Class(es)DatesSig (Normalized)Sig (Original)acetaminophen 325 mg / HYDROcodone bitartrate 5 mg oral tablet (9 sources)Opioid AgonistStart: 02-11-2019 End: 93-96-9959dutf 1 tablet by mouth every four to six hours as needed for pain Hydrocodone-Acetaminophen ([place]) 5-325 mg Tablet Discontinued 1 TAB PO EVERY 4- 6 HOURS as needed for Pain 7 3 0 February 11, 2019 12:00am February 02, 2024 6:33pm Calculus of ureter Calculus of ureterciclopirox 80 mg/ml topical solution (4 sources)Start: 05-22-2024 End: 67-60-8222cabogzjeso ([place]) 8 % solution Indications: Toenail fungus Apply topically at bedtime 6 mL 05/22/2024 08/15/2024 Discontinuedfluticasone propionate 0.05 mg/actuat metered dose nasal spray (10 sources)CorticosteroidStart: 02-08-2023 End: 93-22-6287bkss 1-2 spray(s) nasal route once daily as neededfluticasone (Flonase) 50 MCG/ACT nasal spray Indications: Allergic rhinitis, unspecified seasonality, unspecified trigger USE 1 - 2 SPRAYS IN EACH NOSTRIL ONCE A DAY NEEDED 48 mL 1 02/08/2023 05/22/2024 Discontinuednaproxen 500 mg oral tablet (9 sources)Nonsteroidal Anti-inflammatory DrugStart: 02-11-2019 End: 87-21-3920qixa 1 tablet by mouth every twelve hours at mealtimeNaproxen (Naprosyn) 500 mg Tablet Discontinued 500 MG PO Q12H 20 0 February 11, 2019 12:00am February 02, 2024 6:33pm administer with food or milk Nirmatrelvir-Ritonavir (10 sources)Start: 02-02-2024 End: 13-11-4741Fhzdubvarbpm-Ritonavir (Paxlovid) 300 mg (150 mg x 2)-100 mg tablets,dose pack Discontinued 0 PO .COMPLEX 30 0 February 02, 2024 12:00am February 02, 2024 6:58pm take TWO 150 mg tablets of nirmatrelvir with ONE 100 mg tablet of ritonavir twice daily for 5 days POStart: 02-02-2024 End: 69-26-6010Yicgblarmmeg-Ritonavir (Paxlovid) 300 mg (150 mg x 2)-100 mg tablets,dose pack Discontinued 0 PO .COMPLEX 30 February 02, 2024 12:00am February 10, 2025 12:41pm take TWO 150 mg tablets of nirmatrelvir with ONE 100 mg tablet of ritonavir twice daily for 5 days POStart: 02-02-2024 End: 17-87-1528Tlfcewarrqvg-Ritonavir (Paxlovid) 300 mg (150 mg x 2)-100 mg tablets,dose pack Discontinued 0 PO .COMPLEX February 02, 2024 12:00am February 02, 2024 6:58pm take TWO 150 mg tablets of nirmatrelvir with ONE 100 mg tablet of ritonavir twice daily for 5 days POStart: 02-02-2024 End: 56-74-1299Tjutcxrxuyzl-Ritonavir (Paxlovid) 300 mg (150 mg x 2)-100 mg tablets,dose pack Discontinued 0 PO .COMPLEX February 02, 2024 12:00am February 10, 2025 12:41pm take TWO 150 mg tablets of nirmatrelvir with ONE 100 mg tablet of ritonavir twice daily for 5 days POondansetron 4 mg disintegrating oral tablet (9 sources)Serotonin-3 Receptor AntagonistStart: 02-11-2019 End: 59-33-0239Flvosgvbzem 4 mg Tablet,Disintegrating Discontinued 4 MG PO every 6 to 8 hours as needed for Rwogbn98 February 11, 2019 12:00am February 02, 2024 6:33pmtamsulosin hydrochloride 0.4 mg oral capsule (9 sources)alpha-Adrenergic BlockerStart: 02-11-2019 End: 86-47-6071ffzh 1 capsule by mouth once dailyTamsulosin (Flomax) 0.4 mg capsule Discontinued 0.4 MG PO Daily 7 February 11, 2019 12:00am February 02, 2024 6:32pm Problems Active Problems Problem ClassificationProblemDateDocumented DateEpisodic/ChronicCalculus of urinary tract (17 sources)Ureteric stone; Translations: [Kidney stone]69-80-0920Zihtpzqr Comment on above:Problem List clean-up per request of Phys. EHR CmteCoagulation and hemorrhagic disorders (20 sources)Thrombocytopenic disorder; Translations: [Thrombocytopenia, unspecified]Onset: 318494-91-7745AxaiifzSbdeosywvuvqt symptoms and ill- defined conditions (2 sources)Dysuria; Translations: [Dysuria]Onset: 304844-80-4602Mmmfrcly Immunizations and screening for infectious disease (3 sources)Encounter for screening for human papillomavirus (HPV); Translations: [Contact with or exposure to other viral diseases]Onset: 045553-18-0892 EpisodicMenstrual disorders (20 sources)Excessive and frequent menstruation with regular cycle; Translations: [Menorrhagia]Onset: 09-74-2330DhmgbfuFgjmcpa (2 sources)Onychomycosis of toenails; Translations: [Tinea unguium]05-22-2024 EpisodicOther connective tissue disease (2 sources)Pain in right foot; Translations: [Pain in right foot]09-26-2024 EpisodicOther female genital disorders (2 sources)Pain in female genitalia on intercourse; Translations: [Unspecified dyspareunia]02-27-1088TygzrocOkfho female genital disorders (1 source)Pain in female pelvis; Translations: [Pelvic pain in female]03-12-2025 EpisodicOther liver diseases (5 sources)Liver disease, unspecified; Translations: [LIVER DISEASE UNSPECIFIED] Onset: 07-94-4373BoxjrjbFqsay liver diseases (20 sources)Lesion of liver; Translations: [Liver disease, unspecified]Onset: 303401-29-3589ZqimajrBfwzd lower respiratory disease (2 sources)Cough; Translations: [Cough, unspecified type]94-05-4280MhzicegcGfqbk nutritional; endocrine; and metabolic disorders (20 sources)Obesity; Translations: [Obesity, unspecified]Onset: 02-08-2023 27-90-8388VinbqudYfkrw screening for suspected conditions (not mental disorders or infectious disease) (7 sources)Encounter for screening for malignant neoplasm of cervix; Translations: [Encounter for screening for dental disorders]Onset: 08-25-2021 EpisodicOther skin disorders (2 sources)Ingrowing toenail; Translations: [Ingrowing nail]74-29-0274Iwgmugvd Other upper respiratory infections (20 sources)Sinusitis; Translations: [Chronic sinusitis, unspecified]Onset: 268249-87-2265YgypjnhHlscj upper respiratory infections (12 sources)Pharyngitis; Translations: [Acute pharyngitis, unspecified] 33-53-5803ZdytkisoUptshcw on above:Problem List clean-up per request of Phys. EHR CmteResidual codes; unclassified (3 sources)History of endometrial ablation; Translations: [Other specified postprocedural states]79-44-0096EqqxklzkDllj and subcutaneous tissue infections (4 sources)Paronychia of toe of right foot; Translations: [Cellulitis of right toe]12-44-2517XkuejmzzVfljlfshgsoo (1 source)CONTACT W/AND (SUSP) EXPOS COVID-19; Translations: [CONTACT W/AND (SUSP) EXPOS COVID-19]Onset: 15-16-8207Ghkonfhvnmnz (5 sources)Pain in pelvis; Translations: [Pain in pelvis]Onset: 02-08-2023 74-69-6840Hurdpas tract infections (6 sources)Acute urinary tract infection; Translations: [Urinary tract infection, site not specified]88-79-7905Zuykvjmp Past or Other Problems Problem ClassificationProblemDateDocumented DateEpisodic/ChronicAbdominal pain (20 sources)Pelvic and perineal pain; Translations: [Unspecified abdominal pain] Onset: 986545-62-4389XrpoctilYhuzig of cervix (20 sources)Cervicovaginal cytology: Low grade squamous intraepithelial lesion; Translations: [Low grade squamous intraepithelial lesion on cytologic smear of cervix (LGSIL)]Onset: 146604-71-0808MtfkrsghMsmzdaljcdefl and procreative management (1 source)Tubal ligation status; Translations: [TUBAL LIGATION STATUS]Onset: 93-56-2832ZdltitrtBmpdjgys of upper limb (15 sources)Fracture of distal end of radius; Translations: [Unspecified fracture of the lower end of unspecified radius, initial encounter for closed fracture]Onset: 220179-39-3907RreogyptNeabqy and vomiting (4 sources)Nausea with vomiting, unspecified; Translations: [NAUSEA WITH VOMITING UNSPECIFIED]Onset: 11-44-6620KzlinviiBfahodllxebgz gastroenteritis (1 source)Noninfective gastroenteritis and colitis, unspecified; Translations: [NONINFECTIVE GE AND COLITIS UNS]Onset: 87-49-2975IauwotifXgvmehky codes; unclassified (1 source)Acquired absence of other specified parts of digestive tract; Translations: [ACQ ABSENCE OTH PART DIGESTV TRACT]Onset: 28-49-3857Lddenwlw Screening and history of mental health and substance abuse codes (1 source)Personal history of nicotine dependence; Translations: [PERSONAL HISTORY OF NICOTINE DEPEND]Onset: 32-11-1815EkqezkhdJybqnfpbqzlq (1 source)SRP (chief complaint)Onset: 62-36-5045Lhvvt infection (20 sources)Disease caused by 2019-nCoV; Translations: [COVID-19]Onset: 976351-24-6866Ealbrusm Results Test NameValueInterpretationReference RangeFacilityIGP,APTIMA HPV,AGE GDLNon 70-49-8721NCI GDLN ACOG TESTINGNote.NOMS HealthcareComment on above:TESTS RESULT FLAG UNITS REF RANGE LAB Clinician Provided Cytology Information Source.............Cervix;Endocervix No. of containers..01 ThinPrep Vial Age Algo ACOG Paula... 30-65 01 FLAG LEGEND: L-Low Normal,H-High Normal,LL-Alert Low,HH-Alert High <-Panic Low,>-Panic High,A-Abnormal,AA-Critical Abnormal Performed at: 01 =[address] [address] Wendy Kumar MD, HPV APTIMAPositiveAbnormalNegativeNOMS HealthcareComment on above:This nucleic acid amplification test detects fourteen high- risk HPV types (16,18,31,33,35,39,45,51,52,56,58,59,66,68) without differentiation. HPV GENOTYPE 16NegativeNegativeNOMS HealthcareHPV GENOTYPE 18,45PositiveAbnormal NegativeNOMS HealthcareComment on above:Performed at: =[address] [id number] Rubber And Pounder: Wendy Kumar MD, Phone: [phone] Performed at: [address] [id number] Rubber And Pounder: Wendy Kumar MD, Phone: [phone] IGP, APTIMA HPV, RFX 16/18,45Note.NOMS HealthcareComment on above:TESTS RESULT FLAG UNITS REF RANGE LAB DIAGNOSIS: 02 NEGATIVE FOR INTRAEPITHELIAL LESION OR MALIGNANCY. REACTIVE CELLULAR CHANGES AND/OR REPAIR ARE PRESENT. Specimen adequacy: 02 Satisfactory for evaluation. Endocervical and/or squamous metaplastic cells (endocervical component) are present. Performed by: 02 Radha Lake, Employee Relations Specialist (ASCP) Electronically si... 02 Pedro Padilla MD, Pathologist . 02 Note: Note 02 The Pap smear is a screening test designed to aid in the detection of premalignant and malignant conditions of the uterine cervix. It is not a diagnostic procedure and should not be used as the sole means of detecting cervical cancer. Both false-positive and false-negative reports do occur. Test Methodology: Note 02 This liquid based ThinPrep(R) pap test was interpreted using the Resolver(R) Genius(TM) Cervical Algorithm whole slide imaging system. HPV Genotype Reflex Note 02 Criteria met, see HPV Genotype results. FLAG LEGEND: L-Low Normal,H-High Normal,LL-Alert Low,HH-Alert High <-Panic Low,>-Panic High,A-Abnormal,AA-Critical Abnormal Performed at: [address] [address] Wendy Kumar MD, Interpretation and review of laboratory resultsAbnormalSt. Joseph Medical Center BRUSH-SPATULA CERVIX ENDOCERVIX CLINISYNCNONC HealthcareHCG ( test) Ql (U)on 20-23-9432Fvojiksmgikkuc and review of laboratory resultsNormSelect Specialty Hospital - HarrisburgPreg Test, UrNegative NegativeNOFroedtert Kenosha Medical CenterLon 03-12-2025L Specimen: [id number] Received: 03/13/25 Status: LUCIAN Barreto Num: [id number] Spec Type: Surgical Subm Dr: Jaxson Gonzales Tissues: A Endometrium - Biopsy (ENDO BX) Procedures: HE/2, Gross/Micro L4 Age/ Patient Sex Location Account Attending Physician Farzaneh Marvin 34/F LABELL [id number] Jaxson Gonzales SPEC NUM: [id number] RECD: 03/13/25 STATUS: LUCIAN BARRETO NUM: [id number] PERFECTO: 03/12/25 [facility] DR: Jaxson Gonzales ENTERED: 03/13/[address] [facility] [address]: [place],Lab SPEC TYPE: Surgical DEPT: [facility] ENTERED BY: [id number] RECV BY: [id number] ORDERED: HE/2, Gross/Micro L4 ORDERED: HE/2, Gross/Micro [...] submitted in a single cassette. (1, ns, [id number] A) Suzanne Microscopic Description Microscopic examination is performed. CPT Codes 32507 Specimen: [id number] Received: 03/13/25 Status: LUCIAN Barreto Num: [id number] Spec Type: Surgical Subm Dr: Jaxson Gonzales Tissues: A Endometrium - Biopsy (ENDO BX) Procedures: HE/Rose, Chad/Samson L4 Patient: Farzaneh Marvin [id number] (Continued) Signed (signature on file) Tripp Gu MD 03/14/25 1151Normal [facility] Physician GroupLaboratory - Chemistry and Chemistry - challenge Ordered By: Tania Dove on 63-15-3807Vkuravzda Ql (U)NegativeSheltering Arms HospitalGlucose (U) [Mass/Vol]NegativeSheltering Arms HospitalKetones Ql (U)NegativeSheltering Arms HospitalpH (U)6.0 [pH] [facility] Systempecific gravity (U) [Rel density]>=1.030 Sheltering Arms HospitalUrobilinogen (U) [Mass/Vol]0.2 mg/dLSheltering Arms HospitalLaboratory - Specimen informationOrdered By: Tania Dove on 71-67-6699Jnhypoqgyd (U)cloudySheltering Arms HospitalColor (U)yellowSheltering Arms HospitalLaboratory - UrinalysisOrdered By: Tania Dove on 33-23-5740Pxtylhsnv esterase Test strip Ql (U)smallSheltering Arms HospitalNitrite Ql (U)[facility] Protein Ql (U)100Sheltering Arms HospitalNo Panel InformationOrdered By: Tania Dove on 75-21-3454Huzas Occult Bloodtrace-intactSheltering Arms HospitalUrine Cultureon 03-72-5810Brsfajiw identified Cx Nom (U)ORGANISM: Escherichia coli (MDRO) (O:ESCCOLMDRO) Witter Count >100,000 * This is a corrected [...] RESISTANT TO ALL B-LACTAM DRUGS. PERFORMED BY: [place] [address] PATHOLOGIST ENTERTAINER OR VARIETY ARTIST DARIN CADENA M.D.[facility] Physician GroupComment on above: Performed By: #### CUU #### [place] [address] USAUrine cultureOrdered By: Tania Dove on 02-10-2025 Bacteria identified Cx Nom (U)Escherichia coli (MDRO)AbnormalSheltering Arms HospitalUPPER RESPIRATORY CULTUREon 68-69-0338IAGOV RESPIRATORY CULTURE Upper Respiratory Culture NOMS HealthcareUPPER RESPIRATORY CULTURERoutine respiratory floraNOEastern [facility] State Hospital UPPER RESPIRATORY CULTUREPerformed at: CB - [facility] RESPIRATORY [id number] [place], [place] [id number]-[facility] RESPIRATORY CULTURELab Director: Anatoliy Argueta PhD, Phone: [phone] Missouri HospitalINISYNADDISON GIL[facility] HealthcareLaboratory - Microbiology and Antimicrobial susceptibilityon 58-05-2611XDQW-CoV-2 (COVID-19) RNA DANIELLE+probe Ql (Unsp spec) NegativeNONC HealthcareNo Panel Informationon 08-04-9419OPM ANegativeNOMS HealthcareFLU BNegativeNOMS HealthcareInterpretation and review of laboratory resultsNormalNONC HealthcareNOMS HealthcarePathology study report document Ordered By: Tripp Gu on 64-87-0149Kzbfbgrsv studySheltering Arms Hospital Other Lon 09-05-2024L Specimen: [id number] Received: 09/06/24 Status: LUCIAN Barreto Num: [id number] Spec Type: Surgical Subm Dr: Jaxson Gonzales Tissues: A Endocervix - Curettings (ENDOCERVICAL CURETTINGS) Procedures: HE/2, Gross/Micro L4, Ki-67, CINtec p16 Age/ Patient Sex Location Account Attending Physician Farzaneh Marvin 33/F LABELL [id number] Jaxson Gonzales SPEC NUM: [id number] RECD: 09/06/24 STATUS: LUCIAN BARRETO NUM: [id number] PERFECTO: 09/05/[address] [facility] [address]: Jaxson Gonzales ENTERED: 09/06/[address] [facility] [address]: [place] SPEC TYPE: Surgical DEPT: [facility] ENTERED BY: [id number] RECV BY: [id number] ORDERED: HE/2, Gross/Micro L4, Ki-67, CINtec p16 [...] submitted in a single cassette. (1, ns, [id number] A) GREG Specimen: [id number] Received: 09/06/24 Status: LUCIAN Jaureguijudie Num: [id number] Spec Type: Surgical Subm Dr: Jaxson Gonzales Tissues: A Endocervix - Curettings (ENDOCERVICAL CURETTINGS) Procedures: HE/2, Gross/Micro L4, Ki-67, CINtec p16 Patient: Farzaneh Marvin [id number] (Continued) Specimen: [id number] Received: 09/06/24 (Continued) Signed (signature on file) Tripp Gu MD 09/08/24 1050 Specimen: [id number] Received: 09/06/24 Status: LUCIAN Barreto Num: [id number] Spec Type: Surgical Subm Dr: Jaxson Gonzales Tissues: A Endocervix - Curettings (ENDOCERVICAL CURETTINGS) Procedures: HE/2, Gross/Micro L4, Ki-67, CINtec p16 Patient: Farzaneh Marvin [id number] (Continued) Specimen: [id number] Received: 09/06/24 (Continued) Microscopic Description Microscopic examination is performed. CPT Codes 14799, 99195, 76566 Specimen: [id number] Received: 09/06/24 Status: LUCIAN Barreto Num: [id number] Spec Type: Surgical Subm Dr: Jaxson Gonzales Tissues: A Endocervix - Curettings (ENDOCERVICAL CURETTINGS) Procedures: HE/2, Gross/Micro L4, Ki-67, CINtec p16 Patient: Farzaneh Marvin [id number] (Continued) Signed (signature on file) Tripp Gu MD 09/08/24 1050Normal [facility] Physician GroupIG,APTIMA HPV,AGE GDLNon 42-75-9095ESE LN ACOG TESTINGNote.NOMS HealthcareComment on above:TESTS RESULT FLAG UNITS REF RANGE LAB Clinician Provided Cytology Information Source.............Cervix;Endocervix No. of containers..01 ThinPrep Vial Age Geo ABHINAV Paula... 29- FLAG LEGEND: L-Low Normal,H-High Normal,LL-Alert Low,HH-Alert High <-Panic Low,>-Panic High,A-Abnormal,AA-Critical Abnormal Performed at: 01 =[address] [place] [address] Wendy Kumar MD, HPV APTIMAPositiveAbnormalNegativeNOMS HealthcareComment on above:This nucleic acid amplification test detects fourteen high- risk HPV types (16,18,31,33,35,39,45,51,52,56,58,59,66,68) without differentiation. Performed at: = - [facility] [id number] Rubber And Pounder: Wendy Kumar MD, Phone: [phone] Performed at: [address] [id number] Rubber And Pounder: Wendy Kumar MD, Phone: [phone] IGP, APTIMA HPV, RFX 16/18,45NoteAbnormal.NOMS HealthcareComment on above:TESTS RESULT FLAG UNITS REF RANGE LAB DIAGNOSIS: [A] 02 EPITHELIAL CELL ABNORMALITY. LOW GRADE SQUAMOUS INTRAEPITHELIAL LESION (LSIL). Recommendation: [A] 02 Suggest follow up as clinically appropriate. Specimen adequacy: 02 Satisfactory for evaluation. Endocervical and/or squamous metaplastic cells (endocervical component) are present. Performed by: 03 No Deshpande, Farm Manager (ASCP) Electronically si... 02 Wendy Kumar MD, [...] Abnormal Performed at: 02 [facility] [address] [address] Wendy Kumar MD, 03 KWCYT [facility] [place] Cyto Histo [id number] [place] [id number] Juaquin Calderon MD, Interpretation and review of laboratory resultsAbnormalNOMS Healthcare BRUSH-SPATULA CERVIX ENDOCERVIX CLINISYNCNOMS HealthcareHCG ( test) Ql (U)on 96-67-6976Aiatudkekwdhny and review of laboratory resultsNormalNOMS HealthcarePreg Test, UrNegative NegativeNOMS HealthcareNOMS HealthcareBasic Metabolic Brand w/Rfx A1Con 08-14-2024 Anion gap [Moles/Vol]10.7 mmol/LNormal6.0-15.0The [facility] Physician Group Comment on above:Performed By: #### EBS LIPID, EMP BMP #### [facility] [address] [place] [address] USACalcium [Mass/Vol]9.8 mg/dLNormal8.6-10.3The [facility] Physician GroupComment on above:Performed By: #### EBS LIPID, EMP BMP #### [facility] [address] [place] [address] USAChloride [Moles/Vol]103 mmol/KUkejid02-621Ylt [facility] Physician GroupComment on above:Performed By: #### EBS LIPID, EMP BMP #### [facility] [address] [place] [address] USACO2 [Moles/Vol]29.5 mmol/OBjaltu52.0-31.0The [facility] Physician GroupComment on above:Performed By: #### EBS LIPID, EMP BMP #### [facility] [address] [place] [address] USACreatinine [Mass/Vol]0.73 mg/dLNormal0.60-1.20The [facility] Physician GroupComment on above:Performed By: #### EBS LIPID, EMP BMP #### [facility] [address] [place] [address] USAGFR/1.73 sq M.predicted MDRD (S/P/Bld) [Vol rate/Area] mL/min/{1.73_m2}NormalThe [facility] Physician GroupComment on above:Performed By: #### EBS LIPID, EMP BMP #### [facility] [address] [place] [address] USAGlucose [Mass/Vol]85 mg/wUAdtbmb18-439Ozh [facility] Physician GroupComment on above:Performed By: #### EBS LIPID, EMP BMP #### [facility] [address] [place] [address] USAPotassium [Moles/Vol]4.2 mmol/LNormal3.5-5.1The [facility] Physician GroupComment on above:Performed By: #### EBS LIPID, EMP BMP #### [facility] [address] [place] [address] USASodium [Moles/Vol]139 mmol/OJphgyi444-138Xso [facility] Physician GroupComment on above:Performed By: #### EBS LIPID, EMP BMP #### [facility] [address] [place] [address] USAUrea nitrogen [Mass/Vol]10 mg/dLNormal7-25The [facility] Physician GroupComment on above:Performed By: #### EBS LIPID, EMP BMP #### [facility] [address] [place] [address] USACalcium [Mass/volume] in Serum or PlasmaOrdered By: Wes John on 13-55-3271Ujyztek [Mass/Vol]Calcium [Mass/volume] in Serum or Plasma 8.6-10.3FMercy Health Anderson HospitalCarbon dioxide, total [Moles/volume] in Serum or PlasmaOrdered By: Wes John on 04-07-2319VS7 [Moles/Vol]Carbon dioxide, total [Moles/volume] in Serum or Wpqcvu93.0-31.0[facility] HospitalChloride [Moles/volume] in Serum or PlasmaOrdered By: Wes John on 89-49-1138Pfcpzybd [Moles/Vol]Chloride [Moles/volume] in Serum or Amsbrs21-281BirghppcxSheltering Arms HospitalCholesterol [Mass/volume] in Serum or PlasmaOrdered By: Wes John on 77-82-1641Kslehiczyot [Mass/Vol] Cholesterol [Mass/volume] in Serum or Gwoklz507-138JrgwjvfovSheltering Arms HospitalComment on above:Chol less than 200 mg/dl low riskChol 201-239 mg/dl borderline riskChol 240 mg/dl and greater high riskCholesterol in HDL [Mass/volume] in Serum or PlasmaOrdered By: Wes John on 08-14-2024 Cholesterol in HDL [Mass/Vol]Serum or plasma high density lipoprotein (HDL) cholesterol hwhxsvsithq01-13IkkmxmukvSheltering Arms HospitalComment on above: HDL CHOL ATP-III CLASSIFICATION Cardiovascular RiskHDL > or equal to 60 mg/dL LOWHDL < 40 mg/dL HIGHCholesterol in LDL Calc [Mass/Vol]Ordered By: Wes John on 75-49-5092Kacrwyrbzmt in LDL [Mass/Vol]Cholesterol in LDL [Mass/volume] in Serum or Plasma by calculationHigh0-100S[facility] HospitalComment on above:LDL ATP III CLASSIFICATIONLDL less than 100 mg/dL OptimalLDL 100-129 mg/dL Near or above gubknjfJEQ574-119 mg/dL Borderline highLDL 160-189 mg/dL HighLDL greater than 189 mg/dL Very highCholesterol in VLDL Calc [Mass/Vol]Ordered By: Wes John on 57-82-4270Gouhkuetare in VLDL [Mass/Vol]Cholesterol in VLDL [Mass/volume] in Serum or Plasma by calculation [facility] HospitalCreatinine [Mass/volume] in Serum or Plasma Ordered By: Wes John on 37-42-0335Hqeabjewwp [Mass/Vol]Creatinine [Mass/volume] in Serum or Plasma0.60-1.20[facility] Glucose [Mass/volume] in Serum or PlasmaOrdered By: Wes John on 08-14-2024 Glucose [Mass/Vol]Glucose [Mass/volume] in Serum or Qvblnx70-280AjzjkgwnqSheltering Arms HospitalLipid Profileon 36-28-8084Mxdvsjieytq [Mass/Vol]194 mg/dL Tqowln530-191Npl [facility] Physician GroupComment on above:Result Comment: Chol less than 200 mg/dl low risk Chol 201-239 mg/dl borderline risk Chol 240 mg/dl and greater high riskPerformed By: #### EBS LIPID, EMP BMP #### [facility] [address] [place] [address] USACholesterol in HDL [Mass/Vol]54 mg/iFFxhhwj50-52Itv [facility] Physician GroupComment on above:Result Comment: HDL CHOL ATP-III CLASSIFICATION Cardiovascular Risk HDL > or equal to 60 mg/dL LOW HDL < 40 mg/dL HIGHPerformed By: #### EBS LIPID, EMP BMP #### [facility] [address] [place] [address] USACholesterol.total/Cholesterol in HDL [Mass ratio]3.6 {ratio}Normal<5.0The Kindred Hospital PhiladelphiaComment on above:Result Comment: PERFORMED BY: [address] [address] PATHOLOGIST ENTERTAINER OR VARIETY ARTIST CHARITY MENDIETA M.D.Performed By: #### EBS LIPID, EMP BMP #### [facility] [address] [place] [address] USALDL Cholesterol,Pusplgguzm979 mg/dLHigh0-100The [facility] Physician GroupComment on above:Result Comment: LDL ATP III CLASSIFICATION LDL less than 100 mg/dL Optimal LDL 100-129 mg/dL Near or above optimal LDL 130-159 mg/dL Borderline high LDL 160-189 mg/dL High LDL greater than 189 mg/dL Very highPerformed By: #### EBS LIPID, EMP BMP #### [facility] [address] [place] [id number] USATriglyceride w/Nceyyy469 mg/dLNormal0-149[facility] Physician GroupComment on above:Result Comment: TRIG ATP III CLASSIFICATION TRIG less than 150 mg/dL Normal TRIG 150-199 mg/dL Borderline high TRIG 200-500 mg/dL High TRIG greater than 500 mg/dL Very high Standard traceable to the Center for Disease Conrtrol and Prevention (CDC) test method.Performed By: #### EBS LIPID, EMP BMP #### [facility] [address] [place] [id number] USAVLDL EATMZIYRLEZ61 mg/dLNormBayfront Health St. Petersburg Emergency Room Physician GroupComment on above:Performed By: #### EBS LIPID, EMP BMP #### [facility] [address] [place] [id number] USANo Panel InformationOrdered By: Wes John on 60-46-9546Agmsvkyfn GFR (CKD-EPI)> 60.0 mL/MinSheltering Arms Hospital Pharmacy Creatinine Clearance (ChemN/[facility] HospitalPotassium [Moles/volume] in Serum or PlasmaOrdered By: Wes John on 08-14-2024 Potassium [Moles/Vol]Potassium [Moles/volume] in Serum or Plasma3.5-5.1FKettering Health Hamiltonerum or plasma anion gap determinationOrdered By: Wes John on 16-78-5981Jozuc gap [Moles/Vol]Serum or plasma anion gap determination6.0-15.0[facility] Health Systemerum or plasma total cholesterol/high density lipoprotein (HDL) cholesterol mass ratOrdered By: Wes oJhn on 82-10-2357Dioyqpfilqb.total/Cholesterol in HDL [Mass ratio] Serum or plasma total cholesterol/high density lipoprotein (HDL) cholesterol mass rat<5.0[facility] Health Systemodium [Moles/volume] in Serum or PlasmaOrdered By: Wes John on 22-63-7967Kqsodf [Moles/Vol]Sodium [Moles/volume] in Serum or Owpahq913-798JxojpddjrSheltering Arms Hospital Triglyceride [Mass/volume] in Serum or PlasmaOrdered By: Wes John on 69-29-0390Vdurcwuwzspv [Mass/Vol]Triglyceride [Mass/volume] in Serum or Plasma 0-149[facility] HospitalComment on above:TRIG ATP III CLASSIFICATIONTRIG less than 150 mg/dL NormalTRIG 150-199 mg/dL Borderline highTRIG 200-500 mg/dL High TRIG greater than 500 mg/dL Very highStandard traceable to the Center for Disease Conrtrol and Prevention (CDC) test method. Urea nitrogen [Mass/volume] in Serum or PlasmaOrdered By: Wes John on 59-71-3284Srpi nitrogen [Mass/Vol]Urea nitrogen [Mass/volume] in Serum or Plasma 12-15[facility] HospitalNo Panel InformationOrdered By: Hilaria Shell on 11-07-1741Nfuxs Strep (POC)[facility] HospitalCBC AUTO DIFFon 73-71-7239VKOC #0.0 103/ulNormal0.0-0.1[facility] HospitalComment on above: Performed By: #### CBC #### [facility] [address] [place] [address] [address] Cain McwilliamsBasophils/100 WBC (Bld)0.4 %Normal0.2-2.0[facility] Comment on above:Performed By: #### CBC #### [facility] [address] [place] [address] [address] Cain Jaramillo #0.1 103/ulNormal0.0-0.7The Lutheran HospitalComment on above: Performed By: #### CBC #### [facility] [address] [place] [address] [address] Cain Ramseyosinophils/100 WBC (Bld)2.0 %Normal0.9-7.0[facility] Comment on above:Performed By: #### CBC #### [facility] [address] [place] [address] [address] Cain Ramseyrythrocyte distribution width (RBC) [Ratio]12.8 %Knphtt84.0-15.0 [facility] HospitalComment on above:Performed By: #### CBC #### [facility] [address] [place] [address] Dr. Cain McwilliamsHematocrit (Bld) [Volume fraction]40.6 %Xnbljm01.0-48.0The [facility] HospitalComment on above:Performed By: #### CBC #### [facility] [address] [place] [address] Dr. Cain McwilliamsHemoglobin (Bld) [Mass/Vol]14.1 g/lMPuunvp52.0-16.0The [facility]an HospitalComment on above:Performed By: #### CBC #### [facility] [address] [place] [address] Dr. Cain Lal #0.01 10e3/ulNormal0.00-0.03The [facility] HospitalComment on above:Performed By: #### CBC #### [facility] [address] [place] [address] Dr. Cain Lal %0.2 %Normal0.0-0.5The [facility] HospitalComment on above: Performed By: #### CBC #### [facility] [address] [place] [address] Dr. Cain Tafoya #1.1 103/ulCritically low1.2-3.8The [facility] Comment on above:Performed By: #### CBC #### [facility] [address] [place] [address] Dr. Cain Justicehocytes/100 WBC (Bld)24.6 %Gnzshp58.5-60.0The [facility]an HospitalComment on above:Performed By: #### CBC #### [facility] [address] [place] [address] Dr. Cain MaciasUAL DIFF REQNONormalThe Lutheran HospitalComment on above: Performed By: #### CBC #### [facility] [address] [place] [address] Dr. Cain Cooper (RBC) [Entitic mass]30.1 bgLjdbss22.7-34.0The [facility] HospitalComment on above:Performed By: #### CBC #### [facility] [address] [place] [address] Dr. Cain Knox (RBC) [Mass/Vol]34.7 g/jRLpcmjf49.9-35.2The [facility] HospitalComment on above:Performed By: #### CBC #### [facility] [address] [place] [address] Dr. Cain KnoxV (RBC) [Entitic vol]86.8 jLSnacjt49.0-99.0The [facility] HospitalComment on above:Performed By: #### CBC #### [facility] [address] [place] [address] Dr. Cain Obrien #0.3 103/ulNormal0.3-0.8The [facility] HospitalComment on above:Performed By: #### CBC #### [facility] [address] [place] [address] Dr. Cain Davisocytes/100 WBC (Bld)6.5 %Normal1.7-12.0The [facility] Comment on above:Performed By: #### CBC #### [facility] [address] [place] [address] Dr. Cain Topete #3.1 103/ulNormal1.4-6.5The [facility] HospitalComment on above:Performed By: #### CBC #### [facility] [address] [place] [address] Dr. Cain Shenutrophils/100 WBC (Bld)66.3 %Bbayog39.0-75.0The [facility] HospitalComment on above:Performed By: #### CBC #### [facility] [address] [place] [address] Dr. Cain Doranteslet mean volume (Bld) [Entitic vol]10.9 fLNormal9.5-13.5The [facility] HospitalComment on above:Performed By: #### CBC #### [facility] [address] [place] [address] Dr. Cain ChirinosT141 103/ulCritically nzi468-967Pas Lutheran HospitalComment on above:Performed By: #### CBC #### [facility] [address] [place] [address] Dr. Cain McwilliamsRBC4.68 106/ulNormal4.20-5.40The [facility] on above:Performed By: #### CBC #### [facility] [address] [place] [address] Dr. Cain McwilliamsWBC4.6 103/ulNormal4.0-11.0The [facility] on above: Performed By: #### CBC #### [facility] [address] [place] [address] Dr. Cain McwilliamsFREE T4on 18-16-2763Zkei T4 [Mass/Vol]0.99 ng/dLNormal0.76-1.46 The [facility] HospitalComvibra hospital of [facility] [place] on above:Performed By: #### FT4 #### [facility] [address] [place] [address] Dr. Cain McwilliamsGLYCOHEMOGLOBIN A1Con 23-23-3104RQR RECOMMENDATIONSEE BELOWThe Rehabilitation Institute Of St. Louisal The Luther[facility] HospitalComvibra hospital of [facility] [place] on above:Result Comment: ADA RECOMMENDED LIMIT 4.0 - 6.0 ADA THERAPEUTIC TARGET < 7.0 ACTION SUGGESTED > 7.0Performed By: #### A1C #### [facility] [address] [place] [address] Dr. Cain McwilliamsGlucose [Mass/Vol]97 mg/dLTriHealth Bethesda North Hospital on above:Performed By: #### A1C #### [facility] [address] [place] [address] Dr. Cain McwilliamsHbA1c (Bld) [Mass fraction]5.0 %Normal4.5-6.2The [facility] on above:Performed By: #### A1C #### [facility] [address] [place] [address] Dr. Cain McwilliamsPROTIMEon 65-13-7910PDU Coag (PPP) [Relative time]0.95 {INR} NormalMetroHealth Parma Medical Center on above:Performed By: #### CBC #### [facility] [address] [place] [address] Dr. Cain McwilliamsINR GUIDELINESSEE BELOWAvita Health System Galion HospitalComment on above:Result Comment: DESIRED INR: 2.0 - 3.0 CONDITIONS NOT LISTED BELOW 2.5 - 3.5 FOR PROSTHETIC HEART VALVE REPLACEMENT 2.5 - 3.5 RECURRENT THROMBOSIS Performed By: #### CBC #### [facility] [address] [place] [address] Dr. Cain McwilliamsPT Coag (PPP) [Time]10.1 sNormal9.0-11.6The [facility] Comment on above:Performed By: #### CBC #### [facility] [address] [place] [address] Dr. Cain Bahena 71-61-2933xFME Coag (Bld) [Time]29.4 tRhucws80.3-36.2The [facility] HospitalComment on above:Performed By: #### CBC #### [facility] [address] [place] [address] Dr. Cain Smith 11-37-7618MLS0.596 uIU/mLNormal0.358-3.740The [facility] HospitalComment on above:Performed By: #### TSH #### [facility] [address] [place] [address] Dr. Cain McwilliamsUS PELVIS AND TRANSVAGon 72-65-0847DY PELVIS AND TRANSVAG EXAMINATION: US PELVIS AND [...] authenticated by: MALICK ESPINOZA Date: 2022-06-22 16:47NormalThe [facility] AUTO DIFFon 23-71-3077ZURC #0.0 103/ulNormal0.0-0.1The [facility]omerene Hospitalment on above:Performed By: #### CBC #### [facility] [address] [address] [address] Cain McwilliamsBasophils/100 WBC (Bld)0.4 %Normal0.2-2.0The [facility] Comment on above:Performed By: #### CBC #### [facility] [address] [address] [address] Cain Jaramillo #0.0 103/ulNormal0.0-0.7The [facility] HospitalComment on above: Performed By: #### CBC #### [facility] [address] [place] [address] Dr. Cani Ramseyosinophils/100 WBC (Bld)0.8 %Critically low0.9-7.0The [facility] HospitalComment on above:Performed By: #### CBC #### [facility] [address] [address] [address] Cain Ramseyrythrocyte distribution width (RBC) [Ratio]12.8 %Fhkjzr50.0-15.0 The [facility]omerene Hospitalment on above:Performed By: #### CBC #### [facility] [address] [address] [address] Cain McwilliamsHematocrit (Bld) [Volume fraction]41.6 %Uoikcw19.0-48.0The [facility] HospitalComment on above:Performed By: #### CBC #### [facility] [address] [address] [address] Cain McwilliamsHemoglobin (Bld) [Mass/Vol]13.8 g/pLVkwzao22.0-16.0The [facility] Hospitalment on above:Performed By: #### CBC #### [facility] [address] [place] [address] Dr. Cain Lal #0.01 10e3/ulNormal0.00-0.03The [facility] on above:Performed By: #### CBC #### [facility] [address] [address] [address] Cain Lal %0.2 %Normal0.0-0.5The [facility] on above: Performed By: #### CBC #### [facility] [address] [address] [address] Cain Tafoya #1.3 103/ulNormal1.2-3.8The [facility] HospitalComvibra hospital [facility] [place] on above:Performed By: #### CBC #### [facility] [address] [place] [address] Dr. Cain Justicehocytes/100 WBC (Bld)27.1 %Plukwz20.5-60.0The [facility] HospitalComvibra hospital [facility] [place] on above:Performed By: #### CBC #### [facility] [address] [place] [address] Dr. Cain Singer DIFF REQNONormalThe [facility] HospitalComment on above: Performed By: #### CBC #### [facility] [address] [place] [address] Dr. Cain Cooper (RBC) [Entitic mass]30.5 thBlhejt59.7-34.0The [facility] on above:Performed By: #### CBC #### [facility] [address] [place] [address] Dr. Cain Knox (RBC) [Mass/Vol]33.2 g/cZKesqpp71.9-35.2The [facility] Hospitalment on above:Performed By: #### CBC #### [facility] [address] [place] [address] Dr. Cain Knox (RBC) [Entitic vol]91.8 sGJlavtq39.0-99.0The [facility] on above:Performed By: #### CBC #### [facility] [address] [place] [address] Dr. Cain Obrien #0.3 103/ulNormal0.3-0.8The [facility] HospitalComment on above:Performed By: #### CBC #### [facility] [address] [place] [address] Dr. Cain Davisocytes/100 WBC (Bld)6.3 %Normal1.7-12.0The [facility] Comment on above:Performed By: #### CBC #### [facility] [address] [place] [address] Dr. Cain Topete #3.1 103/ulNormal1.4-6.5The [facility] HospitalComment on above:Performed By: #### CBC #### [facility] [address] [place] [address] Dr. Cain Shenutrophils/100 WBC (Bld)65.2 %Gnjvrb45.0-75.0The [facility] HospitalComment on above:Performed By: #### CBC #### [facility] [address] [place] [address] Dr. Cain Doranteslet mean volume (Bld) [Entitic vol]11.3 fLNormal9.5-13.5The [facility] HospitalComment on above:Performed By: #### CBC #### [facility] [address] [place] [address] Dr. Cain McwilliamsPLT149 103/ulCritically yhe195-738Etz Lutheran HospitalComment on above:Performed By: #### CBC #### [facility] [address] [place] [address] Dr. Cain McwilliamsRBC4.53 106/ulNormal4.20-5.40The [facility] HospitalComment on above:Performed By: #### CBC #### [facility] [address] [place] [address] Dr. Cain McwilliamsWBC4.8 103/ulNormal4.0-11.0The [facility] HospitalComment on above: Performed By: #### CBC #### [facility] [address] [place] [address] Dr. Cain McwilliamsPREG QUANT HCGon 54-80-4295ZYQ QUANT<1NormalBethesda North Hospital Comment on above:Performed By: #### CBC #### [facility] [address] [place] [address] Dr. Cain Benoit RANGESEE Dayton Children's HospitalComment on above: Result Comment: 5-50 0-1 WEEK 40-300 1-2 WEEKS 100-1,000 2-3 WEEKS 500-6,000 3-4 WEEKS 5,000-200,000 1-2 MONTHS 10,000-100,000 2-3 MONTHS 3,000-50,000 2ND TRIMESTER 1,000-50,000 3RD TRIMESTERPerformed By: #### CBC #### [facility] [address] [place] [address] Dr. Cain Mckeon ACOG PANEL 2: 30 to 65on 09-02-2021..NormalBethesda North HospitalComment on above:Result Comment: Performed at: WBPerformed By: #### CBC #### [facility] [address] [place] [address] Dr. Cain Reese Gdln ACOG Oprpfst03-79JuuxhqZct69 Robinson StreetComment on above:Performed By: #### CBC #### [facility] [address] [place] [address] Dr. Cain McwilliamsDIAGNOSIS:CommentTriHealth Bethesda North Hospital on above: Result Comment: NEGATIVE FOR INTRAEPITHELIAL LESION OR MALIGNANCY. THIS SPECIMEN WAS RESCREENED PART OF OUR WAITER AND CASHIER PROGRAM. Performed at: WBPerformed By: #### CBC #### [facility] [address] [place] [address] Dr. Cain McwilliamsHPChapis AptimaNegativeNormalNegativeBethesda North HospitalComvibra hospital of [facility] [place] on above:Result Comment: This nucleic acid amplification test detects fourteen high-risk HPV types (16,18,31,33,35,39,45,51,52,56,58,59,66,68) without differentiation. Performed at: =GPerformed By: #### CBC #### [facility] [address] [place] [address] Dr. Cain McwilliamsMethodology:CommentTriHealth Bethesda North Hospital on above: Result Comment: This liquid based ThinPrep(R) pap test was screened with the use of an image guided system. Performed at: WBPerformed By: #### CBC #### [place] [address] Dr[address] Cain McwilliamsNote:CommentTriHealth Bethesda North Hospital on above:Result Comment: The Pap smear is a screening test designed to aid in the detection of premalignant and malignant conditions of the uterine cervix. It is not a diagnostic procedure and should not be used as the sole means of detecting cervical cancer. Both false-positive and false-negative reports do occur. . Performed at: WBPerformed By: #### CBC #### [facility] [address] [place] [address] Dr. Cain McwilliamsPerformed by:CommentTriHealth Bethesda North Hospital on above: Result Comment: Sasha Odonnell, Farm Manager (ASCP) Performed at: WBPerformed By: #### CBC #### [facility] [address] [place] [address] Dr. Cain McwilliamsQC reviewed by:CommentTriHealth Bethesda North Hospital on above:Result Comment: Shu Silver, Supervisory Farm Manager (ASCP) Performed at: WBPerformed By: #### CBC #### [place] [address] Dr[address] Cain McwilliamsSpecimen adequacy:[facility] on above:Result Comment: Satisfactory for evaluation. Endocervical and/or squamous metaplastic cells (endocervical component) are present. Performed at: WBPerformed By: #### CBC #### [facility] [address] [place] [address] Dr. Cain McwilliamsUS PELVIS AND TRANSVAGon [id number] PELVIS AND TRANSVAG EXAMINATION: US PELVIS AND [...] Electronically authenticated by: MALICK ESPINOZA Date: 2021-08-30 10:29[facility] Gal[facility] HospitalUS SINGLE QUAD RT UPPERon 29-29-0005MM SINGLE QUAD RT UPPER EXAMINATION: US SINGLE [...] Electronically authenticated by: MALICK ESPINOZA Date: 2021-08-30 10:31[facility] W MANUAL DIFFon [id number] LYMPH #NormalThe Lutheran HospitalComment on above:Performed By: #### MARU #### [facility] [address] [place] [address] Dr. Cain McwilliamsATYPICAL LYMPH %NormalThe Lutheran HospitalComment on above: Performed By: #### MARU #### [facility] [address] [address] [address] Cain McwilliamsBAND #0.2 103/ulNormal0.0-0.3The [facility] HospitalComment on above:Performed By: #### CBCISMAEL #### [facility] [address] [place] [address] Dr. Cain Henderson %3 %Normal0-5The [facility] HospitalComment on above:Performed By: #### CBCISMAEL #### [facility] [address] [address] [address] Cain Bai #0.00 103/ulNormal0.00-0.10The [facility] HospitalComment on above:Performed By: #### MARU #### [facility] [address] [place] [address] Dr. Cain Bai %0.0 %Critically low0.2-2.0The [facility] HospitalComment on above:Performed By: #### MARU #### [facility] [address] [place] [address] Dr. Cain Cuellar #NormalThe [facility]ushing HospitalComment on above:Performed By: #### MARU #### [facility] [address] [place] [address] Dr. Cain Cuellar %NormalBethesda North HospitalComment on above:Performed By: #### MARU #### [facility] [address] [place] [address] Dr. Cain McwilliamsCORRECTED WBCNormal4.0-11.0The [facility] HospitalComment on above: Performed By: #### CBCISMAEL #### [facility] [address] [place] [address] Dr. Cain Gannon #0.00 103/ulNormal0.00-0.70The [facility] HospitalComment on above:Performed By: #### MARU #### [facility] [address] [place] [address] Dr. Cain Gannon%0.0 %Critically low0.9-7.0The [facility] HospitalComment on above:Performed By: #### MARU #### [facility] [address] [place] [address] Dr. Cain ChavezT44.2 %Skyvjx59.0-48.0The [facility] HospitalComment on above: Performed By: #### MARU #### [facility] [address] [place] [address] Dr. Cain McwilliamsHGB14.6 g/aqUzjiaa35.0-16.0The [facility] HospitalComment on above: Performed By: #### MARU #### [facility] [address] [address] [address] Cian Rust #0.34 103/ulCritically low1.20-3.80[facility] Comment on above:Performed By: #### MARU #### [facility] [address] [place] [address] Dr. Cain Rust%5.0 %Critically low20.5-60.0The Lutheran HospitalComment on above:Performed By: #### MARU #### [facility] [address] [place] [address] Dr. Cain McwilliamsMCH30.0 flKlfmoq38.7-34.0The Lutheran HospitalComment on above: Performed By: #### MARU #### [facility] [address] [place] [address] Dr. Cain KnoxHC33.0 g/abBfilzp92.9-35.2The Lutheran HospitalComment on above:Performed By: #### MARU #### [facility] [address] [place] [address] Dr. Cain KnoxV90.9 aKUculvu97.0-99.0The Lutheran HospitalComment on above: Performed By: #### CBCISMAEL #### [facility] [address] [place] [address] Dr. Cain CooperOCYTE #NormalThe Lutheran HospitalComment on above: Performed By: #### MARU #### [facility] [address] [place] [address] Dr. Cain CooperOCYTE %NormalThe [facility]ushing HospitalComment on above: Performed By: #### MARU #### [facility] [address] [address] [address] Cain Colon#0.21 103/ulCritically low0.30-0.80[facility] on above:Performed By: #### MARU #### [facility] [address] [address] [address] Cain Colon%3.0 %Normal1.7-12.0The Lutheran HospitalComment on above: Performed By: #### MARU #### [facility] [address] [address] [address] Cain McwilliamsMPV11.3 fLNormal9.5-13.5The Lutheran HospitalComment on above: Performed By: #### MARU #### [facility] [address] [place] [address] Dr. Cain HaleyOCYTE #NormalThe Lutheran HospitalComment on above:Performed By: #### MARU #### [facility] [address] [place] [address] Dr. Cain HaleyOCYTE %NormalThe Lutheran HospitalComment on above:Performed By: #### MARU #### [facility] [address] [place] [address] Dr. Cain McwilliamsNRBCNormalThe Lutheran HospitalComment on above:Performed By: #### MARU #### [facility] [address] [place] [address] Dr. Cain McwilliamsPLT153 103/dvPqsqyz931-738Tjz Lutheran HospitalComment on above: Performed By: #### CBCISMAEL #### [facility] [address] [place] [address] Dr. Cain McwilliamsRBC4.86 106/ulNormal4.20-5.40The Lutheran HospitalComment on above:Performed By: #### MARU #### [facility] [address] [place] [address] Dr. Cain McwilliamsRDW12.5 %Gnthfc33.0-15.0The Lutheran HospitalComment on above: Performed By: #### CBCMAN #### [facility] [address] [place], [place] [address] Dr. Cain Chinchilla #6.14 103/ulNormal1.40-6.50The Lutheran HospitalComment on above:Performed By: #### CBCMAN #### [facility] [address] [place], [place] [address] Dr. Cain Chinchilla %89.0 %Critically high43.0-75.0The Luther[facility] HospitalComment on above:Performed By: #### CBCMAN #### [facility] [address] [place], [place] [address] Dr. Cain McwilliamsWBC6.9 103/ulNormal4.0-11.0The Luther[facility] HospitalComment on above: Performed By: #### CBCMAN #### [facility] [address] [address] [address] Cain McwilliamsCT ABD/PELV W CONon 89-58-2062AC ABD/PELV W CONEXAMINATION: CT ABD/PELV W CON [...] Electronically authenticated by: ISHMAEL ESPINALARDEN Date: 2021-08-24 17:39NoThe University of Tol[facility] Medical CenterCULTURE BLOODon 44-53-0776Qvezfqfnwsj examination of blood, cultureCulture Observations: No growth at 5 days.NormalBethesda North HospitalComment on above:Performed By: #### CBC #### [facility] [address] [place] [address] Dr. Cain McwilliamsMicroscopic examination of blood, cultureCulture Observations: No growth at 5 daysNoThe University of Toledo Medical CenterComment on above:Performed By: #### CBC #### [facility] [address] [place] [address] Dr. Cain McwilliamsCovid-19 PCR ([facility])on 25-88-0490LNPR-CoV-2 (COVID-19) RNA DANIELLE+probe Ql (Unsp spec)Not detectedNormalNOT DETECTEDBethesda North Hospital Comment on above:Result Comment: When diagnostic testing [...] for this test is supported by the [place] of Health and Human Service's declaration that [...] longer be used).Performed By: #### CVDTBH #### [facility] [address] [place] [address] Dr. Cain Jefferson URINE PROFILEon 04-65-2389Bshgpkenb Ql (U)NegativeNormal NEGATIVEBethesda North HospitalComment on above:Performed By: #### CBC #### [facility] [address] [place] [address] Dr. Cain McwilliamsClarity (U)SL CLOUDYAbnormalCLEARThHolmes County Joel Pomerene Memorial HospitalComment on above:Performed By: #### CBC #### [facility] [address] [place] [address] Dr. Cain Abernathy (U)YELLOWNormalYELLOWBethesda North HospitalComment on above: Performed By: #### CBC #### [facility] [address] [place] [address] Dr. Cain Montenegro micrscopic examination will be performed if indicated. NormalBethesda North HospitalComment on above:Performed By: #### CBC #### [facility] [address] [place] [address] Dr. Cain McwilliamsGlucose Ql (U)NegativeNormalNEGATIVEBethesda North HospitalComment on above:Performed By: #### CBC #### [facility] [address] [place] [address] Dr. Cain McwilliamsHemoglobin Ql (U)NegativeNormalNEGATIVEBethesda North Hospital Comment on above:Performed By: #### CBC #### [facility] [address] [place] [address] Dr. Cain McwilliamsKetones Ql (U)NegativeNormalNEGATIVEBethesda North HospitalComment on above:Performed By: #### CBC #### [facility] [address] [place] [address] Dr. Cain McwilliamsLEUKOCYTESNegativeNormalNEGATIVEBethesda North HospitalComment on above:Performed By: #### CBC #### [facility] [address] [address] [address] Cain Ling Ql (U)NegativeNormalNEGATIVEThe Lutheran HospitalComment on above:Performed By: #### CBC #### [facility] [address] [place] [address] Dr. Cain McwilliamspH (U)5.5 [pH]Normal5-9The Luther[facility] HospitalComment on above: Performed By: #### CBC #### [facility] [address] [place] [address] Dr. Cain McwilliamsSPEC GRAVITY1.073Pvrdiy4.005-<=1.025The Lutheran HospitalComment on above:Performed By: #### CBC #### [facility] [address] [place] [address] Dr. Cain Ni PROTEINNegativeNormalNEGATIVE/ TRACEThe [facility] Comment on above:Performed By: #### CBC #### [facility] [address] [place] [address] Dr. Cain Wright MICRO INDNOT INDICATEDNormalThe Lutheran HospitalComment on above:Performed By: #### CBC #### [facility] [address] [place] [address] Dr. Cain Morrowbilinogen Qn (U)0.2 {Claire'U}/dLNormal0.2 - 1.0The Luther[facility] HospitalComment on above:Performed By: #### CBC #### [facility] [address] [place] [address] Dr. Cain McwilliamsLACTATE/LACTIC ACIDon 46-03-2277Xyfrhtg [Moles/Vol]2.1 mmol/L Critically high0.7-2.0The Lutheran HospitalComment on above:Performed By: #### LACT #### [facility] [address] [place] [address] Dr. Cain McwilliamsLIPASEon 82-77-2889Ownmub [Catalytic activity/Vol]102.0 U/LNormal 23.0-300.0The [facility] HospitalComment on above:Performed By: #### CMP, LIPA #### [facility] [address] [address] [address] Cain Cui HCG QUALon 39-00-0879HHSMJKCQV, QUALNegativeNormalNEGATIVE The Lutheran HospitalComment on above:Performed By: #### CBC #### [facility] [address] [place] [address] Dr. Cain McwilliamsPROF 14(COMP METB)on 68-80-4085Phptxic [Mass/Vol]3.7 g/dLNormal 3.4-5.0The [facility] HospitalComment on above:Performed By: #### CMP, LIPA #### [facility] [address] [place] [address] Dr. Cain McwilliamsAlbumin/Globulin [Mass ratio]1.1 {ratio}NormalThe Lutheran HospitalComment on above:Performed By: #### CMP, LIPA #### [facility] [address] [place] [address] Dr. Cain Gavin [Catalytic activity/Vol]103 U/PGauaty04-378Olq Luther[facility] HospitalComment on above:Performed By: #### CMP, LIPA #### [facility] [address] [place] [address] Dr. Cain Taylor [Catalytic activity/Vol]18 U/KUrgdtv56-35Eeu [facility] HospitalComment on above:Performed By: #### CMP, LIPA #### [facility] [address] [place] [address] Dr. Cain Bravo gap [Moles/Vol]15.3 mmol/LNormalThe [facility] Comment on above:Performed By: #### CMP, LIPA #### [facility] [address] [place] [address] Dr. Cain McwilliamsAST [Catalytic activity/Vol]13 U/LCritically whp13-53Vys Luther[facility] HospitalComment on above:Performed By: #### CMP, LIPA #### [facility] [address] [place] [address] Dr. Cain McwilliamsBilirubin [Mass/Vol]0.7 mg/dLNormal0.2-1.3TMartin Memorial Hospital Comment on above:Performed By: #### CMP, LIPA #### [facility] [address] [place] [address] Dr. Cain McwilliamsCalcium [Mass/Vol]8.3 mg/dLCritically low8.5-10.1The [facility] HospitalComment on above:Performed By: #### CMP, LIPA #### [facility] [address] [address] [address] Cain McwilliamsChloride [Moles/Vol]102 mmol/GRohbdo49-193Woo [facility] Comment on above:Performed By: #### CMP, LIPA #### [facility] [address] [place] [address] Dr. Cain McwilliamsCO2 [Moles/Vol]22.2 mmol/RHgewdv88.0-30.0[facility] Comment on above:Performed By: #### CMP, LIPA #### [facility] [address] [place] [address] Dr. Cain McwilliamsCreatinine [Mass/Vol]0.93 mg/dLNormal0.52-1.04The [facility] HospitalComment on above:Performed By: #### CMP, LIPA #### [facility] [address] [place] [address] Dr. Cain RamseyGFR-AF MONEGASQUE>60Normal>=60The [facility] HospitalComment on above:Performed By: #### CMP, LIPA #### [facility] [address] [place] [address] Dr. Cain RamseyGFR-NON AF MONEGASQUE>60Normal>=60The [facility] HospitalComment on above:Performed By: #### CMP, LIPA #### [facility] [address] [place] [address] Dr. Cain McwilliamsGlobulin (S) [Mass/Vol]3.5 g/dLNormalThe [facility] HospitalComment on above:Performed By: #### CMP, LIPA #### [facility] [address] [place] [address] Dr. Cain McwilliamsGlucose [Mass/Vol]108 mg/dLCritically hanh73-078Wyp [facility] HospitalComment on above:Performed By: #### CMP, LIPA #### [facility] [address] [address] [address] Cain McwilliamsPotassium [Moles/Vol]3.5 mmol/LNormal3.4-5.0[facility] Comment on above:Performed By: #### CMP, LIPA #### [facility] [address] [address] [address] Cain McwilliamsProtein [Mass/Vol]7.2 g/dLNormal6.1-8.2The [facility] Comment on above:Performed By: #### CMP, LIPA #### [facility] [address] [address] [address] Cain McwilliamsSodium [Moles/Vol]136 mmol/LCritically lgv631-617Rus [facility] HospitalComment on above:Performed By: #### CMP, LIPA #### [facility] [address] [address] [address] Cain McwilliamsUrea nitrogen [Mass/Vol]11.0 mg/dLNormal7.0-18.0The [facility] HospitalComment on above:Performed By: #### CMP, LIPA #### [facility] [address] [address] [address] Cain McwilliamsUrea nitrogen/Creatinine [Mass ratio]11.8 mg/mgNormalThe [facility] HospitalComment on above:Performed By: #### CMP, LIPA #### [facility] [address] [address] [address] Cain McwilliamsAutomated basophil %on 10-95-2618Rtcpcojtb/100 WBC (Bld)0.4 % [facility] CtrAutomated basophil counton 99-55-1213Qispmgsef (Bld) [#/Vol]0.0 10*3/uL0.0-0.2FMercy Health Tiffin Hospital CtrAutomated blood lymphocyte count (number/volume)on 44-00-9277Mrvahcemwyn (Bld) [#/Vol]0.8 10*3/uL1.00-4.8[facility] CtrAutomated blood lymphocyte count as percentage of total leukocyteson 31-36-6602Zqponauxugb/100 WBC (Bld)21.0 % [facility] CtrAutomated blood monocyte counton 02-11-2019 Monocytes (Bld) [#/Vol]0.2 10*3/uL0.0-0.8[facility] CtrAutomated blood platelet count (count/volume)on 01-32-7137Rusfdtyab (Bld) [#/Vol]141 10*3/vM736-153RqvgtpsjoKettering Health [facility] Memorial CtrAutomated blood platelet mean volume measurementon 34-60-7724Hqmxkpkd mean volume (Bld) [Entitic vol]9.4 fL6.3-10.7 [facility] CtrAutomated eosinophil %on 47-76-3002Hehvrbffgjr/100 WBC (Bld)1.1 %[facility] CtrAutomated eosinophil counton 93-09-0048Fblcusdppai (Bld) [#/Vol]0.0 10*3/uL0.0-0.45[facility] CtrAutomated erythrocyte distribution width ratioon 75-42-7578Whikexxubxb distribution width (RBC) [Ratio]12.4 %11.9-15.3FMercy Health Tiffin Hospital Ctr Automated erythrocyte mean corpuscular hemoglobin (mass per erythrocyte)on 59-74-4841ATD (RBC) [Entitic mass]30.3 pg24.7-34.3FMercy Health Tiffin Hospital Ctr Automated erythrocyte mean corpuscular hemoglobin concentration measurement (mass/volon 43-21-9024YVIA (RBC) [Mass/Vol]33.8 g/dL32.0-35.0[facility] CtrAutomated erythrocyte mean corpuscular volumeon 74-67-9407KVI (RBC) [Entitic vol]89.6 sI02-981VbapzlifsKettering Health Greene Memorial CtrAutomated erythrocytes count in urine sediment (number/area)on 53-47-8832WCN Auto (Urine sed) [#/Area] 10-19 [HPF][facility] CtrAutomated leukocytes count in urine sediment (number/area)on 48-82-9366AON Auto (Urine sed) [#/Area]3-4 [HPF] [facility] CtrAutomated monocyte %on 97-69-8132Ziighntlw/100 WBC (Bld)5.6 %[facility] CtrAutomated neutrophil %on 02-11-2019 Neutrophils/100 WBC (Bld)71.9 %[facility] CtrAutomated urine color determinationon 82-22-6441Khtiy (U)YellowYellowKettering Health [facility] CtrBlood erythrocytes automated count (number/volume)on 43-56-9998QJN (Bld) [#/Vol]4.66 10*6/uL3.60-5.00[facility] CtrBlood hemoglobin measurement (mass/volume)on 25-99-9309Eobyxsrnbk (Bld) [Mass/Vol]14.1 g/dL 11.8-15.4FSelect Medical Specialty Hospital - TrumbullBlood leukocytes automated count (number/volume)on 07-69-3235LRE (Bld) [#/Vol]3.8 10*3/uL3.8-11.6FMercy Health Tiffin Hospital CtrBlood neutrophil count by automated method (number/volume)on 90-29-4018Qzisjmesyjn (Bld) [#/Vol]2.7 10*3/uL1.8-7.7FMercy Health Tiffin Hospital CtrEstimated glomerular filtration rate (GFR) non- Americanon 02-11-2019 GFR/1.73 sq M predicted among non-blacks MDRD (S/P/Bld) [Vol rate/Area] mL/min/{1.73_m2}[facility] CtrHematocrit [Volume Fraction] of Blood by Automated counton 88-49-4191Kolilgtlzu (Bld) [Volume fraction]41.7 % 34.0-46.4FMercy Health Tiffin Hospital CtrOtheron 91-00-2342YLS/1.73 sq M.predicted MDRD (S/P/Bld) [Vol rate/Area]mL/min/{1.73_m2}[facility] Comment on above:GFR estimated reference range: According to KDOQI guidelines, <60 ml/min/1.73m2 is sufficient todiagnose a patient with chronic kidney disease.Nucleated RBC/100 WBC (Bld) [Ratio]0.1 %0-0.5FMercy Health Tiffin Hospital CtrPharmacy Creatinine Clearance (Chem94.8433393869LlzyutwgfKettering Health [facility] Memorial CtrSerum or plasma calcium measurement (mass/volume)on 18-74-4974Tfciwpa [Mass/Vol]9.5 mg/dL8.2-10.2FMercy Health Tiffin Hospital CtrSerum or plasma chloride measurement (moles/volume)on 78-28-4406Hofgpfsk [Moles/Vol]107 mmol/L 95-114[facility] CtrSerum or plasma creatinine measurement with calculation of estimated glomerular filtron 76-19-4664Gxvsysdcnf [Mass/Vol]0.86 mg/dL0.44-1.03[facility] CtrSerum or plasma glucose measurement (mass/volume)on 63-35-4897Pdwddrf [Mass/Vol]103 mg/fU86-802EkdovifssKettering Health Greene Memorial CtrComment on above:ADA recommended reference rangeRandom Glucose Reference Range is dependent on time and content of last meal. Glucose of more than 200 mg/dL in a nonstressed, ambulatory subject supports the diagnosisof Diabetes Mellitus.Serum or plasma potassium measurement (moles/volume)on 26-70-6564Worarpoze [Moles/Vol]3.9 mmol/L3.5-5.1FMercy Health Tiffin Hospital Ctr Serum or plasma sodium measurement (moles/volume)on 20-26-8239Tsnraf [Moles/Vol] 139 mmol/C304-400QrhzqjnxzKettering Health [facility] Memorial CtrSerum or plasma total carbon dioxide measurement (moles/volume)on 02-52-2940WD6 [Moles/Vol]24.6 mmol/L 22.0-30.0[facility] CtrSerum or plasma urea nitrogen measurement (mass/volume)on 33-70-3854Rwhm nitrogen [Mass/Vol]8 mg/dL9-23[facility] CtrSpecific gravity of Urine by Automated test stripon 02-11-2019 Specific gravity (U) [Rel density]1.0211.001-1.030[facility] Squamous epithelial cells detection in urine sediment by light microscopyon 53-73-6889Hunvldqcdg cells.squamous LM Ql (Urine sed)5-9 [HPF][facility] CtrUrinalysison 07-34-8575Bfawwvy casts LM Ql (Urine sed)0-8 [LPF] [facility] CtrUrine bacteria detection by automated methodon 68-29-6862Pscwslsc Auto Ql (U)None seenNone SeenKettering Health Greene Memorial Ctr Urine clarity by refractometry automatedon 43-06-3860Qjzkgbh Refractometry automated (U)ClearClearFMercy Health Tiffin Hospital CtrUrine glucose measurement by automated test strip (mass/volume)on 68-63-3878Alvgork Auto test strip (U) [Mass/Vol]Normal mg/dLNoTogus VA Medical Center CtrUrine hemoglobin detection by automated test stripon 57-97-8875Vztveocdih Auto test strip Ql (U) 2+NegativeUc [facility] HospitalUrine human chorionic gonadotropin (hCG) detection by immunoassayon 42-08-7180UHW ( test) Ql (U)Negative NegativeUc [facility] HospitalUrine ketones measurement by automated test strip (mass/volume)on 77-76-4870Tmhidie (U) [Mass/Vol]NegativeNegative [facility] HospitalUrine leukocyte esterase detection by automated test stripon 60-86-7530Bixjvboan esterase Auto test strip Ql (U)NegativeNegative [facility] CtrUrine nitrite detection by test stripon 02-11-2019 Nitrite Ql (U)NegativeNegAdena Pike Medical CenterUrine pH measurement by automated test stripon 33-32-4472yF (U)5.0 [pH]5.0-9.0[facility] HospitalUrine protein measurement by automated test strip (mass/volume)on 52-91-0609Vbwpmsh (U) [Mass/Vol]NegativeNegAdena Pike Medical Center Urine total bilirubin detection by test stripon 66-83-4182Iqxcibgga Ql (U) NegativeNegAdena Pike Medical CenterUrine urobilinogen measurement by automated test strip (mass/volume)on 19-40-4351Tcbfssekbzth (U) [Mass/Vol]Normal mg/dLNoMercy Memorial Hospital Vital Signs Date TimeVital SignValuePerforming GochusvfwOtprftsa77-53-7585 10:32-0400Body mass index (BMI) [Ratio]34.95 kg/k2Prpve Christian DO Work Phone: NOE[facility] HospitalKzwtrvqxoq09-72-5616 10:32-0400Body nebrls60.25 kgCorey Christian DO Work Phone: [phone] [place], [place] [address]Cautacqocg43-73-1491 10:32-0400Diastolic blood bwunznbq18 mm[Hg]Jaxson Christian DO Work Phone: [phone] [place], [place] [address]Dyolwkurfk14-38-8198 10:32-0400Systolic blood mm[Hg]Jaxson Christian DO Work Phone: [phone])[facility] [place], [place] [address]Ffjxmgfzng41-46-0888 09:34-0400Body mass index (BMI) [Ratio]34.95 kg/q2Jxgco Christian DO Work Phone: [phone])[facility] [place], [place] [address]Bydsvfjjxd03-16-0367 09:34-0400Body ycdshb04.25 kgCorey Christian DO Work Phone: [phone])[facility] [place], [place] [address]Comceyiidb58-52-9206 09:34-0400Diastolic blood werkmpvi53 mm[Hg]Jaxson Christian DO Work Phone: 1(046)[facility] [place], [place] [address]Ecbqxueiht89-55-3039 09:34-0400Systolic blood mm[Hg]Jaxson Christian DO Work Phone: [phone])[address] [place], [place] 1453409-20-2025 12:39-0400Body eesclx648.1 cmG. Raymundo Ramachandranshan DO Work Phone: [phone] [place], [place] 8123709-20-2025 12:39-0400 Body mass index (BMI) [Ratio]34.4 kg/m2G. Raymundo Ramachandranshan DO Work Phone: [phone] [place], [place] 8123709-20-2025 12:39-0400 Body bgsxnpqvmyx33.6 [degF]G. Raymundo Ramachandranshan DO Work Phone: [phone])569-[address] [place], [place] 8123709-20-2025 12:39-0400 Body zrlexp78.89 kgG. Raymundo Ramachandranshan DO Work Phone: [phone])302-[address] [place], [place] 8123709-20-2025 12:39-0400 Diastolic blood qxvzubvf10 mm[Hg]GSantana Raymundo Prieto DO Work Phone: [phone])[address] [place], [place] 1137309-20-2025 12:39-0400 Heart rate77 /Shay. Raymundo Prieto DO Work Phone: [phone])[address] [place], [place] 1137309-20-2025 12:39-0400 Respiratory rate18 /Shay. Raymundo Prieto DO Work Phone: [phone])[address] [place], [place] 1137309-20-2025 12:39-0400 SaO2% (BldA) [Mass fraction]99 %Gabino Prieto DO Work Phone: [phone])[address] [place], [place] 1137309-20-2025 12:39-0400 Systolic blood ekjntoak684 mm[Hg]Gabino Prieto DO Work Phone: [phone])[address] [place], [place] 1137308-07-2025 13:46-0400 Body viiezmwvugt42.29 [degF]Genaro Cartagena DMD Work Phone: [phone])[address] [place], [place] 5482008-07-2025 13:46-0400Diastolic blood ayjmpvzy01 mm[Hg]Genaro Cartagena DMD Work Phone: [phone])[address] [place], [place] 5482008-07-2025 13:46-0400Heart rate71 /minKunal Mitzi DMD Work Phone: [phone])[address] [place], [place] 5482008-07-2025 13:46-0400Systolic blood vwoscepu711 mm[Hg]Genaro Cartagena DMD Work Phone: [phone])[address] [place], [place] 5482004-21-2025 10:23-0400Body ahvure917.1 cmEllen Warren SERVER ADMINISTRATOR Work Phone: noE[facility] HospitalLtzxscuglc82-20-9670 10:23-0400Body mass index (BMI) [Ratio]34.45 kg/c3LlmypEllen Warren SERVER ADMINISTRATOR Work Phone: noE[facility] HospitalPdxcrqappx79-23-2549 10:23-0400Body temperature 97.11 [degF]Ellen Warren SERVER ADMINISTRATOR Work Phone: NOE[facility] HospitalQsojhjfsnn78-40-6783 10:23-0400Body puwgsy94.89 kgEllen Warren SERVER ADMINISTRATOR Work Phone: noE[facility] HospitalSljflkehrq05-48-2096 10:23-0400Diastolic blood cftejtrd12 mm[Hg]Ellen Dewittelise SERVER ADMINISTRATOR Work Phone: NOE[facility] HospitalCkzxtkdytu65-87-0671 10:23-0400Heart rate90 /min Ellen Warren SERVER ADMINISTRATOR Work Phone: noE[facility] HospitalXwtbkcucmf20-68-9608 10:23-9339LsA1% (BldA) [Mass fraction]98 %Ellen Warren SERVER ADMINISTRATOR Work Phone: NOE[facility] HospitalCbjrjwrjsm54-17-9582 10:23-0400Systolic blood cijqejha454 mm[Hg]Ellen Kelvin SERVER ADMINISTRATOR Work Phone: [facility] CenterHuzzpavpyf85-58-0816 11:19-0400Body eagezw928.1 Eusebio Lamar PA Work Phone: NOE[facility] HospitalJdmmdarxpt54-81-1652 11:19-0400Body mass index (BMI) [Ratio]34.28 kg/m2Corrine Lamar PA Work Phone: NOE[facility] HospitalWzjgdggzhu65-29-6671 11:19-0400Body temperature 97.39 [degF]Corrine Lamar PA Work Phone: NOE[facility] HospitalWdcregijyg94-54-6565 11:19-0400Body ngxpvo53.44 kgCorrine Lamar PA Work Phone: NOE[facility] HospitalNoansajqnd46-20-0086 11:19-0400Diastolic blood txlygobu45 mm[Hg]Corrine Lamar PA Work Phone: NOE[facility] HospitalEzrafdndti53-42-9694 11:19-0400Heart rate87 /min Corrine Lamar PA Work Phone: NOE[facility] HospitalKbhkevaqqz11-51-7077 11:19-7214PwI8% (BldA) [Mass fraction]99 %Corrine Lamar PA Work Phone: NOE[facility] HospitalUmmlmaxuff37-90-0771 11:19-0400Systolic blood uoswnqjr769 mm[Hg]Corrine Lamar PA Work Phone: NOE[facility] HospitalRxcgeqkdad14-34-1142 11:35-0400Body mass index (BMI) [Ratio]34.61 kg/r3KjossJaxson Gonzales DO Work Phone: [facility] CenterOyvhrsnudb13-65-3526 11:35-0400Body wpetgn90.35 kgCorey Christian DO Work Phone: NOE[facility] HospitalDgrscqhjfr14-05-0096 11:35-0400Diastolic blood ujptmwao45 mm[Hg]Jaxson Aguiarzio DO Work Phone: NOE[facility] HospitalEvxfevyicz15-42-1064 11:35-0400Systolic blood mm[Hg]Jaxson Aguiarzio DO Work Phone: [facility] CenterAwgdupggfp31-95-6570 14:37-0500Body vfqjge756.1 cmRtripp Lamar PA Work Phone: [facility] CenterMzzuldzciu37-60-8691 14:37-0500Body mass index (BMI) [Ratio]34.95 kg/m2Corrine Lamar PA Work Phone: [facility] CenterSphjmyqwml41-77-4667 14:37-0500Body temperature 97.39 [degF]Corrine Lamar PA Work Phone: [facility] CenterRjpmrxxevb66-52-8741 14:37-0500Body neturo87.25 kgRymarito Lamar PA Work Phone: [facility] CenterCavcyfszaz60-06-4039 14:37-0500Diastolic blood rxtpjayb16 mm[Hg]Corrine Lamar PA Work Phone: [facility] CenterBdlwtzozow30-90-8082 14:37-0500Heart rate87 /min Corrine Lamar PA Work Phone: [facility] CenterUisvlblcde23-78-7840 14:37-4779JoB4% (BldA) [Mass fraction]98 %Corrine Lamar PA Work Phone: [facility] CenterLjxcjhcmnd76-17-6007 14:37-0500Systolic blood euvgmosb840 mm[Hg]Corrine Lamar PA Work Phone: [facility] CenterBxhccfjmlh30-19-9520 18:37-0400Body seyvnk087.1 [facility] 18:37-0400Body mass index (BMI) [Ratio]38.2 kg/y2YxbrhvjpuSheltering Arms Hospital09-11-2024 18:37-0400Body jnrmpzzmnor80.7 [degF][facility]09-11-2024 18:37-0400Body evgkwo317.32 kgSheltering [facility]09-11-2024 18:37-0400Diastolic blood aljtiwgu40 mm[Hg][facility]09-11-2024 18:37-0400 Heart rate85 /[facility]09-11-2024 18:37-0400 Respiratory rate18 /[facility]09-11-2024 18:37-0400 SaO2% (BldA) [Mass fraction]98 %[facility]09-11-2024 18:37-0400Systolic blood mm[Hg][facility] 01-12-2024 15:45-0400Body .01 [degF]Summer Workman PA Work Phone: [facility] CenterXykrebdtgk74-69-1726 15:45-0400Diastolic blood hkabrtie14 mm[Hg]Summer Workman PA Work Phone: [facility] CenterAqehpraumw06-16-8132 15:45-0400Heart rate80 /min Summer Workman PA Work Phone: [facility] CenterCqldzvgoyw58-46-8403 15:45-8108DpR4% (BldA) [Mass fraction]99 %Summer Workman PA Work Phone: [facility] CenterYigdiqyeex91-31-4304 15:45-0400Systolic blood mm[Hg]Summer Workman PA Work Phone: [facility] CenterJgddhpibwx61-18-7426 13:45-0400BP Yunrnxfpv83 mm[Hg][facility]09-21-2019 13:45-0400BP Yttsfqoa008 mm[Hg][facility]09-21-2019 13:45-0400Pulse (Heart Rate)74 /[facility] 13:45-0400Pulse Rundhhvc507 %[facility]09-21-2019 13:45-0400 Respiratory Rate19 /[facility]. [facility] Fsx83-09-1156 11:BMI (Body Mass Index)25.7 kg/m2[facility] 02-11-2019 11:Body Eebtnefntlb80.7 [degF][facility] Ckw49-86-4577 11:Body .3 kgG[facility] Bht94-05-2206 11:5916Jjwxgl102.1 cmG. [facility] Encounters Encounter DateEncounter TypeCare ProviderFacilityStart: 03-13-2025 End: 00-87-3133Zbmhfv flowsheetCorey Christian DO Work Phone: [facility] [place] [facility]YNStart: 03-13-2025 End: 03-14-5248Fwgddk flowsheetCorey Christian DO Work Phone: [facility] [place] [facility]BGYNStart: 03-13-2025 End: 55-39-0676Dilzknkcr Result EncounterCorey Christian DO Work Phone: noms External Department UnsolicitedStart: 03-13-2025 End: 51-76-5992Exutxv outpatient visit 15 minutesCorey Christian DO Work Phone: [facility] [place] OBGYNComment on above:LGSIL of cervix of undetermined significance; Menorrhagia with regular cycle; Dyspareunia in female; Pelvic pain; History of endometrial ablationStart: 03-13-2025 End: 39-06-4734xdwcinodtrKKWVM FAZIONot AvailableStart: 03-12-2025 End: 12-64-1608pfuddnjhqfESantana Jay Madieshan DO Work Phone: -LAB Path Spec [place] HospStart: 03-12-2025 End: 61-42-1244Kmhhmaya ReferredCorey Christian-LAB Path Spec [place] HospStart: 03-12-2025 End: 02-02-6551Yyttzay encounter procedureCorey Christian DO Work Phone: NOFL [place] OBGYNComment on above:Pre-op examination; Menorrhagia with regular cycle; Pelvic pain in female; Dysmenorrhea; Dyspareunia, female; HGSIL (high grade squamous intraepithelial lesion) on Pap smear of cervixStart: 03-12-2025 End: 46-67-5137Bbystmfypyzru examination doneCorey Christian DO Work Phone: [facility] HealthcareStart: 03-12-2025 End: 12-57-5550zfpngeoqetUJFLH FAZIONot AvailableStart: 03-02-2025 End: 40-94-7552idlfgqjtdeS. Raymundo Ramachandranshna DO Work Phone: [facility] Work Phone: Start: 03-02-2025 End: 93-25-7646Daiqbzt encounter procedureAdeel Eckert DO-Flu VaccineStart: 02-10-2025 End: 80-34-1949izblfmltnxV. Raymundo Conner DO Work Phone: [facility] Work Phone: Start: 02-10-2025 End: 21-56-0800Satvfma encounter procedureTania Whitehead APRN-[facility] Work Phone: Start: 12-28-2024 End: 65-74-7373Qmmvavnck identifierconsuelo [facility] DMD Work Phone: Dental ClinicStart: 22-12-3479dzocmghvupGthusAurora Health Care [facility] DEPARTMENTStart: 09-26-2024 End: 90-99-6487Gegdgs flowsheetModarryn Alvares DPM Work Phone: [facility] PODIATRYStart: 09-26-2024 End: 65-63-0311Gfreob flowsheetModarryn Alvares DPM Work Phone: [facility] PODIATRYStart: 09-26-2024 End: 19-24-8841Ctyvhw outpatient new 30 minutesMorlizzie Alvares DPM Work Phone: noms SWS PODIATRYComment on above:Ingrown toenail (Primary Dx); Right foot painStart: 09-26-2024 End: 59-99-9313aafhdhxkapSLGRJA MACLEAN-BERANNot AvailableStart: 09-11-2024 End: 42-35-9420Inwrvo flowsLorena Warren SERVER ADMINISTRATOR Work Phone: [facility] SWS FM 230Start: 09-11-2024 End: 52-73-5262Lpajtl flowsheetMarthaa Andriy Warren SERVER ADMINISTRATOR Work Phone: [facility] FM 230Start: 09-11-2024 End: 04-80-9837Jguvbu outpatient visit 15 minutesJesabrinaa Andriy Warren SERVER ADMINISTRATOR Work Phone: [facility] SWS FM 230Comment on above:Viral URI (Primary Dx); Cough, unspecified typeStart: 09-11-2024 End: 08-97-7676ovbgzlaylbKWBKF L LUBYNot AvailableStart: 09-09-2024 End: 87-89-3657Uorhlgifl Result EncounterGeneric External Data ProviderNOMS External Department UnsolicitedStart: 09-09-2024 End: 68-49-7576Ejbmvpvlf Result EncounterGeneric External Data ProviderNOMS External Department UnsolicitedStart: 09-05-2024 End: 24-81-3769Velfhurn ReferredG. Raymundo Prieto DO Work Phone: [facility]-LAB Path Spec [place] HospStart: 09-05-2024 End: 30-30-2877akrlywvfexBSantana Prieto DO Work Phone: [facility] Work Phone: Start: 08-22-2024 End: 74-91-7275Ugheib Miguel MOSELEY Work Phone: noms SWS FM 230Start: 08-22-2024 End: 22-83-0872Odxafa Miguel MOSELEY Work Phone: noms SWS FM 230Start: 08-22-2024 End: 03-83-5191Dqdntik encounter procedureCorrine MOSELEY Work Phone: [facility] Work Phone: Start: 08-22-2024 End: 95-02-2263Sjktaiuf preventive med est patient 18-39 yrsCorrine MOSELEY Work Phone: noms SWS FM 230Comment on above:Annual wellness visit (Primary Dx)Start: 08-22-2024 End: 15-83-5881gxmocuscrbGCFS M MYERSNot AvailableStart: 08-18-2024 End: 73-41-0775Pblryx OnlyCorrine MOSELEY Work Phone: noms SWS FM 230Comment on above:Paronychia of toe, unspecified laterality (Primary Dx)Start: 08-15-2024 End: 01-17-7500Lbymjjrse Result EncounterGeneric External Data ProviderNOMS External Department UnsolicitedStart: 08-15-2024 End: 55-88-2428Mcggtyddj Result EncounterGeneric External Data ProviderNOMS External Department UnsolicitedStart: 08-15-2024 End: 53-36-0996Ujolyxa encounter procedureCorey Christian DO Work Phone: noms HealthcareStart: 08-15-2024 End: 62-94-9535Scfvromj preventive med est patient 18-39 yrsCorey Christian DO Work Phone: [facility]OND BCP OBComment on above:Well woman exam with routine gynecological exam; Menorrhagia with regular cycle; History of endometrial ablationStart: 08-15-2024 End: 42-31-8377ffyeuhbuabDUEVF FAZIONot AvailableStart: 08-14-2024 End: 70-17-4371Hwngctgw ReferredG. Raymundo Prieto DO Work Phone: [facility] [address] Work Phone: start: 08-14-2024 End: 09-80-6816glbooqlnbyOSantana Prieto DO Work Phone: [facility] Work Phone: Start: 05-22-2024 End: 68-90-5097gbkezdxqlnFQTU M MYERSNot AvailableStart: 05-22-2024 End: 87-18-0661Ymmiul outpatient visit 15 minutesCorrine MOSELEY Work Phone: noms SWS FM 230Comment on above:Paronychia of great toe of right foot (Primary Dx); Toenail fungusStart: 05-22-2024 End: 42-66-4597Erjryn Miguel MOSELEY Work Phone: [facility] SWS FM 230Start: 05-22-2024 End: 64-70-8416Ajtpmy Miguel MOSELEY Work Phone: noms SWS FM 230Start: 02-02-2024 End: 42-19-7365oezhgmggvnAgdbzcvszAkron Children's Hospital Work Phone: Start: 02-02-2024 End: 50-05-1075Idmffyi encounter procedureNovant [facility] Work Phone: Start: 01-12-2024 End: 12-67-1735Byyvko outpatient visit 15 minutesJennifer Canada PA Work Phone: NOCZ SWS UCComment on above:Viral syndrome (Primary Dx)Start: 06-22-2022 End: 33-74-3530pfcpodvehvOI JAXSON FAZIOFacility:X3Eufnp: 10-09-2021 End: 72-49-1238gltdzbxybrIL JAXSON FAZIOFacility:H9Fflzu: 76-89-0394Hrygaujfg for other preprocedural examinationDR JAXSON FAZIOThe [facility]zer Health Systemtart: 40-04-6326jripixddwrBP JAXSON FAZIOFacility:G2Emrii: 10-01-2021 End: 44-25-5260cdbqadhqjcNE JAXSON FAZIOFacility:W4Nkyep: 10-01-2021 End: 19-19-4492Qdvhcozbl for other preprocedural examinationDR [facility] Facility:C1Dcqud: 08-30-2021 End: 81-32-8724fvaijejerbPAFLU CHETANEliseFacility:W9Jopzi: 08-25-2021 End: 16-28-9030szkcigichkMY JAXSON AGUIARNAZARIOOFacility:B2Auezo: 08-24-2021 End: 89-98-0132kzrfqvrmdbHI SOFIA SCHWARTZFacility:R5Tkwvo: 02-11-2019 End: 11-79-9465Lrevifflp department patient visitG. Conner-Emergency RoomStart: 04-06-2018 End: 82-03-1218Vversba encounter procedureG. [facility] Procedures DateProcedureProcedure DetailPerforming ClinicianStart: 46-94-2499UAT,APTIMA HPV,AGE GDLNCorey Christian DO Work Phone: Start: 84-84-2232Ufqxa test visual color cmprsn methsCoreelise Christian DO Work Phone: Start: 79-57-4155Ybxpv cultureGSantana Prieto DO Work Phone: Start: 12-28-2024 End: 81-90-2956mcgdlu risk assessment and documentation, with a finding of high riskKconsueol Cartagena DMD Work Phone: Start: 12-28-2024 End: 57-33-3055Symqcetfrcgvr of current medicationsKconsuelo Cartagena DMD Work Phone: Start: 12-28-2024 End: 91-61-7106eykxasyvubj counseling for control of dental diseaseKconsuelo Cartagena DMD Work Phone: Start: 12-28-2024 End: 57-80-0598ohfb hygiene instructionsKconsuelo Cartagena DMD Work Phone: Start: 12-28-2024 End: 26-94-4212olqbjdeadye scaling and root planing - one to three teeth per quadrantKconsuelo Cartagena DMDStart: 12-28-2024 End: 67-55-8214syeosqe application of fluoride varnishKunal Kanani DMDStart: 37-26-2088IMZGTR COVID-19/Glenn Warren SERVER ADMINISTRATOR Work Phone: Start: 79-64-9879WLGOQ RESPIRATORY CULTUREGeneric External Data ProviderStart: 93-08-9690Rnfcs test visual color cmprsn methsCorey Christian DO Work Phone: Start: 57-20-2459SLF,APTIMA HPV,AGE GDLNCorey Christian DO Work Phone: Start: 83-95-5152Mmyikycgfws observation [Identifier] in Cervix by Cyto stainEllen Warren SERVER ADMINISTRATOR Work Phone: Start: 66-38-9766Hqwpj Strep (POC)Start: 94-14-5704AB abdomen pelvis wo [place]. [place] Plan of Treatment DateCare ActivityDetailAuthorStart: 30-28-1791Bgiuedkav for malignant neoplasm of cervixNOMS HealthcareStart: 25-39-8793XntmqjrDenver Health Medical Center Work Phone: Start: 03-13-2025 End: 91-97-9818Ohubpeq encounter procedureNOMS BCP OBComment on above:Arrived Start: 03-12-2025 End: 54-53-9587Jcgpdej encounter anggaeehy21/20/2025 9:30 AM EDT Procedure Visit [facility] [address] [place] [address] Jaxson Gonzales, DO [address] [place] [address] N[facility] BCP OBStart: 58-78-7830VugrlyyDenver Health Medical Center Work Phone: Start: 52-59-6112[facility]zKee[facility] Work Phone: Start: 10-10-2024 End: 62-55-6697Ejitffv encounter rezuwpxuq66/20/2025 9:30 AM EDT Office Visit [facility] [address] [place] [id number] Madi Alvares, DPM [address] [place] [address] [facility] SWS PODIATRYStart: 09-26-2024 End: 43-56-4568Osukgxz encounter oysoqlagm83/06/2025 9:30 AM EDT Office Visit [facility] [address] [place] [address] Madi Alvares, DPM [address] [place] [address] ArrivedNOMS [facility] PODIATRYComment on above: ArrivedStart: 09-11-2024 End: 42-99-6680Ttyincg encounter hlejoolwu82/21/2025 10:20 AM EDT Office Visit [facility] [address] [place] [phone] Ellen Warren NP [address] [place] [address] ArrivedNOMS [facility] FM 230Comment on above:ArrivedStart: 08-22-2024 End: 74-99-2310Meatcec encounter kyvcmeqyh24/01/2025 11:20 AM EDT Office Visit [facility] [address] [place] [phone] Corrine Lamar PA [address] [place] [address] ArrivedNOMS [facility] FM 230Comment on above:ArrivedStart: 08-03-2024 End: 20-55-7582Baeffbn encounter cvpgaolan26/13/2025 8:30 AM EDT Office Visit [facility] [address] [place] [address] Jaxson Gonzales, DO [address] [place] [address] [place] [address] [facility] BCP OBStart: 74-00-5786Kfcjpzxvf for malignant neoplasm of cervixMO[facility] REGIONAL [facility]PITAL HealthcareStart: 63-54-6051Oyodrjorx vaccinationInfluenza Vaccine (#1)[facility] HealthcareStart: 56-24-1934Gqtdzssdn for malignant neoplasm of cervixPap SmearNOMS HealthcareCytology Cervical or vaginal smear or scraping studyPap Smear Pathology and Cytology Routine Well woman exam with routine gynecological exam Ordered: 08/15/2024[facility] Work Phone: comment on above:Ordered: 08/15/2024ytology Cervical or vaginal smear or scraping studyPap Smear Pathology and Cytology Routine LGSIL of cervix of undetermined significance Ordered: 03/13/2025[facility] Work Phone: comment on above:Ordered: 03/13/2025Human papilloma virus DNA [Presence] in Unspecified specimen by Probe with amplificationHPV DNA probe, amplified Microbiology Routine Well woman exam with routine gynecological exam Ordered: 08/15/2024[facility] HealthcareComment on above:Ordered: 08/15/2024 Human papilloma virus DNA [Presence] in Unspecified specimen by Probe with amplificationHPV DNA probe, amplified Microbiology Routine LGSIL of cervix of undetermined significance Ordered:03/13/2025[facility] HealthcareComment on above: Ordered: 03/13/2025Patient EducationKidney Stones (ED) How to Strain Your Urine (ED)[facility] CtrPatient referralK[facility]tr Tissue examTissue exam Pathology and Cytology Routine Pre-op examination Menorrhagia with regular cycle Pelvicpain in female Dysmenorrhea Dyspareunia, female HGSIL (high grade squamous intraepithelial lesion) on Pap smear of cervix Ordered: 03/12/2025[facility] Work Phone: comment on above:Ordered: 03/12/2025Urine culture [facility] Immunizations Immunization DateImmunizationNotesCare YsblxufmNcgyhcsi35-74-4799vobeiaxcf, seasonal, injectable, preservative Brittany MOSELEY Work Phone: [phone] [place], [place] [address]Ucniisfzoj62-68-7397pnvpsdc toxoid, reduced diphtheria toxoid, and acellular pertussis vaccine, adsorbedSummer Dread PA Work Phone: [facility] CenterYsqmmtopej02-27-0741vvkoegtikoafv polysaccharide (groups A, C, Y and W-135) diphtheria toxoid conjugate vaccine (MCV4P)Corrine MOSELEY Work Phone: [phone] [place], [place] [address]Lsggilbfie04-77-4589vssjfgnlpn, tetanus toxoids and pertussis vaccineCorrine MOSELEY Work Phone: [phone] [address] StreetZympvbkoxl64-60-5909qxrrcmt, mumps and rubella virus vaccineCorrine MOSELEY Work Phone: [phone] [address] StreetMlvrgwgaod17-34-3021ijzckiofrs vaccine, inactivatedCorrine MOSELEY Work Phone: [phone] [address] StreetMksnwiflxj90-38-7646dmisyvblzwm influenzae type b vaccine, PRP-T conjugateCorrine MOSELEY Work Phone: [phone] [place], [place] [address]Qrrofwdfka15-73-7340dkhrjvc, mumps and rubella virus vaccineCorrine MOSELEY Work Phone: [phone] [place], [place] [address]Fbhadodhwf89-17-5208yvbljhkvcw, tetanus toxoids and pertussis vaccineCorrine MOSELEY Work Phone: [phone] [place], [place] [address]Ildsqjfhdk63-97-0121ngzkgonkfhk influenzae type b vaccine, PRP-T conjugateCorrine MOSELEY Work Phone: [phone] [place], [place] [address]Ytxyzrduns91-97-7661tmagqbmvjd, tetanus toxoids and pertussis vaccineCorrine MOSELEY Work Phone: [phone] [place], [place] [address]Clnviceohw61-19-4411lreojwmokh vaccine, inactivatedCorrine MOSELEY Work Phone: [phone] [address] StreetNksajiaqla07-26-9585npsobqzris, tetanus toxoids and pertussis vaccineCorrine MOSELEY Work Phone: [phone] [address] StreetGxmhpkpzeq54-64-6785qurnquaryd vaccine, inactivatedCorrine MOSELEY Work Phone: [phone] [place] [address] Payers DatePayer CategoryPayerPolicy [id number] 2023Medicaid [id number] [id number] 2.16.840.1.805929.3.579.2.61788-03-3253Rdbjgxn2096654 2.16840.1.856670.3.579.2.72436-67-9188Dgxltdk5959138 2.16840.1.470843.3.579.2.46132-01-6912Hvxukgv3924946 2.16840.1.355226.3.579.2.21808-13-4437Sznzbbh7391504 2.16840.1.440274.3.579.2.38993-53-3594Xnivpkp5657185 2.16840.1.909275.3.579.2.38642-75-4185Gnkedes7574330 2.16840.1.340688.3.579.2.96959-86-8067Yiizinx7510704 2.16840.1.472611.3.579.2.96305-09-2700Gbbotuk56968313 2.16840.1.121129.3.579.2.97214-08-2190Mtcjixg85636189 2.16840.1.188383.3.579.2.005832-11-0827Fihqgae77172477 2.16840.1.376976.3.579.2.615966-40-2196Gtnvqvz4470456 2.16840.1.654250.3.579.2.144526-88-1287Lxcuakl8163815 2.16840.1.102958.3.579.2.446443-16-7724Mqvlcmj9297830 2..1.542645.3.579.2.222974-76-7531Pyugbih3391301 2..1.382266.3.579.2.277688-26-4130Toldruq4224507 2..1.043912.3.579.2.550257-68-5805Psxshly0469997 2..1.741295.3.579.2.429232-21-1110AwbskmdO8584069233 n152c85i-g3y6-97m2-9304-u5413by52x9u45-14-7146Cosasod29872725976FikijqzQqqs Pay [id number] 09706905-8nq9-0q67-0666-6piqp512a7g6WcvhvdcBOT151S79001 3567577f-5im2-3659-f0k8-54g4r291u190LkrpeyxQhltudczs No Ttkc120409034 9cg6p343-0q33-5x29-w718-0a98e48uzjijDcofqnc75954307 ..1.838061.3.579.2.739Jjatzfm05035919 ..1.807565.3.579.2.531 Ttoxewv09010904 .1.373001.3.579.2.829Isbofya66654075 .1.081097.3.579.2.639Ajnjpsi51364114 ..1.741557.3.579.2.531 Wfjbbmh24396816 .1.763670.3.579.2.531 Social History DateTypeDetailFacilityStart: 46-97-6995Mbydvmi smoking status NHISNever smoked tobacco (finding)[facility] CtrStart: 85-94-7743Xnh Assigned At BirthFeHarrison Community Hospitaltart: 12-23-2022 End: 79-69-2743Xxsnnxw smoking status NHISEx-smoker (finding)[facility] HospitalHistory of tobacco useCurrent smokerNOMS HealthcareHistory of tobacco useCigarette SmokerNOMS HealthcareStart: 30-67-2884Hidolyf use and exposureSmokeless tobacco non-userNOMS HealthcareStart: 01-12-2024 End: 91-56-4517Sisbxjpgk beverage intakeLifetime non-drinker (finding)[facility] HealthcareStart: 12-23-2022 End: 11-45-4444Tiwpqca of Social functionNOMS HealthcareStart: 12-23-2022 End: 64-96-9580Uuhmceb use panelNOMS HealthcareStart: 23-12-7778Ofpjzrv Comment Caffeine: > 4 cups/day sodaNOMS HealthcareStart: 78-44-9445Otv assigned at Not on fileNOMS HealthcareStart: 08-15-2024 End: 96-99-1736WinBhsloy (finding)[facility] Systemtart: 55-23-5065Fwhrqgu intakeAlcohol Use DetailsKeefe Memorial Hospital Sexual OrientationStraight or heterosexualKeefe Memorial Hospital Work Phone: Start: 59-88-4654Bqghws identityRockefeller War Demonstration Hospitaltart: 66-02-2499VocTtgvqjRBJL HealthcareNEGATED: Highlighted rowStart: 94-59-2707Svzkggn smoking status NHISUnknown if ever smokedKeefe Memorial HospitalNEGATED: Highlighted rowStart: 02-70-7262Shubmxs of tobacco useCurrent non-smokerKeefe Memorial Hospital Goals DatePatient GoalDesired Activity/State Functional Status XntlKjhtlnjgddUjqdtzJhsgzliy32-84-1921Lonsmff Health Questionnaire 2 item (PHQ- 2) [Reported][facility] Healthcare Clinical Notes 10-09-2021 to 03-13-2025 Note Date & YibcJxtkPgcyonjk67-24-1361 History of Present illness Narrative* Karla Payne LPN - 03/13/2025 10:40 AM EDT Reason for [...] 2015 LGSIL on Pap smear of cervix Migraine without aura Mild dysplasia of cervix 2009 Obesity (BMI 30-39.9) Pelvic pain 2007 Pre-op exam ([facility]) 2009 ([facility]) 2009 Umbilical hernia Varicella zoster Well woman [...] (BMI 30-39.9) Pelvic pain 2007 Pre-op exam ([facility]) 2009 ([facility]) 2009 Umbilical hernia age 3 Varicella zoster [...] LAPAROSCOPY 2006 pelvic pain PELVIC LAPAROSCOPY 2017 [place] COLPOSCOPY,ENTIRE VAGINA,W/BIOPSY(S) 2009 abnormal pap smear TUBAL [...] nursing note reviewed. Exam conducted with a church history professor present. Vitals: Estimated body mass index is [...] of: Jaxson Gonzales DO documented in this encounterSt. Joseph Medical CenterMnykuokvko30-11-7002 History of Present illness Narrative* Keily Lew [...] on 04/11/[address] Gonzales at [facility]. MEDICATIONS No current outpatient medications ALLERGIES Allergies [...] (BMI 30-39.9) Pelvic pain 2007 Pre-op exam ([facility]) 2010 ([facility]) 2009 Umbilical hernia Varicella zoster Well woman [...] (BMI 30-39.9) Pelvic pain 2007 Pre-op exam ([facility]) 2010 ([facility]) 2009 Umbilical hernia age 3 Varicella zoster [...] LAPAROSCOPY 2007 pelvic pain PELVIC LAPAROSCOPY 2018 [place] COLPOSCOPY,ENTIRE VAGINA,W/BIOPSY(S) 2009 abnormal pap smear TUBAL [...] nursing note reviewed. Exam conducted with a church history professor present. Vitals: Estimated body mass index is [...] reviewed, and patient is to proceed to TB OR. Follow Up: Patient is to follow up at 1 & 6 weeks post operative to assess proper healing and recovery from procedure. Documented by Carmelina Heard LPN on behalf of: Jaxson Gonzales DO documented in this encounterSt. Joseph Medical CenterDihsqgziht25-72-7622 Evaluation note* Diagnosis Onset Date Resolution Status Admit Date Acute UTI acuteSeptember 2024 12:24pm [facility] Work Phone: 1(387) 261-109008-07-2025 Evaluation note* Type Assessment Date assessment Encounter for screening for dent al disorders [facility] Work Phone: 1(662) 797-324808-07-2025 History of Present illness Narrative* Encounter Date Complaint History Of Prese nt Illness SRP SRP [facility] Work Phone: 1(811) 865-386805-06-2025 History of Present illness Narrative* Madi Alvares, [...] LAPAROSCOPY 2007 pelvic pain PELVIC LAPAROSCOPY 2018 [place] COLPOSCOPY,ENTIRE VAGINA,W/BIOPSY(S) 2009 abnormal pap smear TUBAL [...] Homegoing instructions were dispensed, including office and senior staff consultant contact numbers. documented in this encounterSt. Joseph Medical [id number] Instructions* Patient Instructions* Hannah Tatum MA - [...] please call the office. documented in this [facility]04-21-2025 History of Present illness Narrative* Ellen Warren [...] LAPAROSCOPY 2007 pelvic pain PELVIC LAPAROSCOPY 2018 [place] COLPOSCOPY,ENTIRE VAGINA,W/BIOPSY(S) 2009 abnormal pap smear TUBAL [...] orders for this visit: Viral URI - xvhtxkzpjnaliwf-vdnuhgsljskhufr-LE 30-2-10 MG/5ML syrup; Take 5 mL by [...] or fail to improve. documented in this encounterSt. Joseph Medical [id number] History of Present illness Narrative* LORELEI Crockett - 08/22/2024 11:20 AM EDT Images from the original note were not included. Subjective Patient ID: Farzaneh Marvin is a 33 y.o. female who presents for Annual Exam (Pt states she is here for a yearly wellness. Pt states that she will starting at [employer] [place] and she will need the wellness for her health insurance. ). Wellness Examination Pt presents to the office for an annual wellness visit without any current complaints. She recentlyhad labs [facility] and is not currently taking any medications. [...] family history were discussed. documented in this [facility]03-28-2025 History of Present illness Narrative* LORELEI Crockett - 08/18/2024 1:05 PM EDT Referral sent. documented in this [facility]03-25-2025 History of Present illness Narrative* Karla Payne [...] of status migrainosus Mild dysplasia of cervix 2008 Obesity (BMI 30-39.9) Pelvic pain 2006 Pre-op exam 2009 2009 Umbilical hernia age [...] LAPAROSCOPY 2007 pelvic pain PELVIC LAPAROSCOPY 2018 [place] COLPOSCOPY,ENTIRE VAGINA,W/BIOPSY(S) 2009 abnormal pap smear TUBAL [...] nursing note reviewed. Exam conducted with a church history professor present. Vitals: Estimated body mass index is [...] of: Jaxson Gonzales DO documented in this encounterSt. Joseph Medical [id number] History of Present illness Narrative* LORELEI Crockett [...] concerns. Pt verbalized understanding. documented in this encounterSt. Joseph Medical [id number] History of Present illness Narrative* LORELEI Whaley [...] do not improve. Patient advised to follow-up withP in 3-5 days. All questions/concerns addressed. Patient voiced understanding and agreement with the plan. covid swab in house negative. documented in this encounterSt. Joseph Medical [id number] NoteOPERATIVE NOTE OPERATION DATE: 10/09/2021 PROCEDURE: Juhi endometrial ablation with hysteroscopy. PREOPERATIVE DIAGNOSIS: Menorrhagia. POSTOPERATIVE DIAGNOSIS: Menorrhagia. ANESTHESIA: General. SURGEON: Jaxson Gonzales M.D. GENERAL DUTY NURSE: None. FINDINGS: Normal appearing endometrium. Both ostia [...] Patient taken to recovery in stable condition. [facility] Signed and Approved by: DR JAXSON GONZALES . 10/13/2021 07:35:00[facility] note* Clinical Note Date No Information [facility] Work Phone: Discharge summary* Clinical Note Date No Information [facility] Work Phone: Evaluation note* Diagnosis Onset Date Resolution Status COVID acuteContact with and (suspected) exposure to covid-19noneactiveSore throat noneactive [facility] Work Phone: Evaluation note* Diagnosis Viral syndrome- Primary Unspecified viral infection, in conditions classified elsewhere and of unspecified site documented in this encounter [facility] HealthcareEvaluation note* Diagnosis Paronychia of great toe of right foot- Primary Toenail fungus documented in this encounter [facility] HealthcareEvaluation noteNo assessment information availableU[facility] Work Phone: Evaluation note* Diagnosis Paronychia of toe, unspecified laterality- Primary documented in this encounter [facility] HealthcareEvaluation note* Diagnosis Well woman exam with routine gynecological exam Routine gynecological examination Menorrhagia with regular cycle History of endometrial ablation documented in this encounter [facility] HealthcareEvaluation [facility]* Diagnosis Annual wellness visit- Primary documented in this encounter [facility] HealthcareEvaluation note* Diagnosis Viral URI- Primary Acute upper respiratory infections of unspecified site Cough, unspecified type documented in this encounter [facility] HealthcareEvaluation note* Diagnosis Ingrown toenail- Primary Ingrowing nail Right foot pain Pain in soft tissues of limb documented in this encounter [facility] HealthcareEvaluation note* Diagnosis Onset Date Resolution Status Admit Date Dysuria noneactiveSept2024 12:24pm [facility] Work Phone: Evaluation note* Diagnosis Pre-op examination Menorrhagia with regular cycle Pelvic pain in female Unspecified symptom associated with female genital organs Dysmenorrhea Dyspareunia, female HGSIL (high grade squamous intraepithelial lesion) on Pap smear of cervix documented in this encounter [facility] HealthcareEvaluation note* Diagnosis LGSIL of cervix of undetermined significance Menorrhagia with regular cycle Dyspareunia in female Pelvic pain History of endometrial ablation documented in this encounter [facility] HealthcareHistory and physical note* Clinical Note Date No Information [facility] Work Phone: History of Past illness Narrative* Condition Effective Dates (start - stop) O utcome No Information [facility] Work Phone: Instructions* Date Instruction Additional Infor mation No Information [facility] Work Phone: Progress note* Clinical Note Date No Information [facility] Work Phone: Reason for referral (narrative)* Reason For Referral No Information [facility] Work Phone: Reason for referral (narrative)No reason for referral information availableWood [facility] Work Phone: Review of systems Narrative - Reported* System Pos/Neg Findings No Information [facility] Work Phone: Advance Directives Advance Directive [...] and content) DATE CREATED AUTHOR 06/25/2022 [facility] DATE CREATED AUTHOR AUTHOR'S ORGANIZ ATION 12/30/2024 [facility] DATE CREATED AUTHOR AUTHOR'S ORGANIZ ATION 03/14/2025 [facility] EPIC DATE CREATED AUTHOR AUTHOR'S ORGANIZ ATION 03/17/2025 [facility] Care Teams (unrecognized sec tion and content) Team Status: Active Member Role Status Dates Gabino Prieto DO Primary Care Provider Active Team Status: Inactive Member Role Status Dates Gabino Prieto DO Primary Care Provider Active Start: February 02, 2024 End: February 01jarrod LOPEZ APRNAtaida ProviderActiveStart: February 02, 2024 End: February 02, 2024Team MemberRelationshipSpecialtyStart DateEnd Date Warren Prieto DO [address] [place] [address] PCP - GeneralFamily Medicine09/29/22Team MemberRelationshipSpecialtyStart DateEnd Date Warren Prieto, DO [address] [place] [address] PCP - Generalmily Medicine09/29/22Team MemberRelationshipSpecialtyStart DateEnd Date Warren Prieto, DO [address] [place] [address] PCP - Generalmily Medicine09/29/22 Team Status: Inactive Member Role Status Sisi Prieto DO Primary Care Provider Active Start: August 14, 2024 End: August 14, 2024Wes John Jr, DOAttending ProviderActiveStart: August 14, 2024 End: August 14, 2024Team MemberRelationshipSpecialtyStart DateEnd Date Warren Prieto, [address] [place] [address] [facility]22Team MemberRelationshipSpecialtyStart DateEnd Date Warren Prieto, [address] [place] [address] PCP - Generalmily Medicine09/29/22Team MemberRelationshipSpecialtyStart DateEnd Date Warren Prieto, DO [address] [place] [address] PCP - Generalmily Medicine09/29/22Team MemberRelationshipSpecialtyStart DateEnd Date Warren Prieto, [address] [place] [address] PCP - GeneralFamily Medicine09/29/22Team MemberRelationshipSpecialtyStart DateEnd Date Warren Prieto DO [address] [place] [address] PCP - GeneralFamily Medicine09/29/22Team MemberRelationshipSpecialtyStart DateEnd Date Warren Prieto DO [address] [place] [address] PCP - Generalmily Medicine09/29/22Team MemberRelationshipSpecialtyStart DateEnd Date Warren Prieto DO [address] [place] [address] PCP - Generalmily Medicine09/29/22 Team Status: Inactive Member Role Status Dates Jaxson Gonzales DO Attending Provider Active Start : September 05, 2024 End: September 05, 2024Team MemberRelationshipSpecialtyStart DateEnd Date Warren Prieto DO [address] [place] [address] PCP - Generalmily Medicine09/29/22Team MemberRelationshipSpecialtyStart DateEnd Date Warren Prieto DO [address] [place] [address] PCP - Generalmily Medicine09/29/22 Name Effective Dates (start - stop) [...] Inactive Member Role Status Dates Adeel QUINN , DO [facility] Attending Provider Active Start: March 02, 2025 End: March 02, 2025Team MemberRelationshipSpecialtyStart DateEnd Date Warren Prieto DO [address] [place] [address] PCP - [facility]09/29/22 Team Status: Inactive Member Role/Relationship Status Dates Tania Dove APRN Attending Provider Active Start: February 10, 2025 End: February 10, 2025G. Prerna Cadena [facility] ProviderActiveStart: February 10, 2025 End: February 10, 2025 Team Status: Inactive Member Role/Relationship Status Dates Tania Dove APRN Attending Provider Active Start: February 10, 2025 End: February 10, 2025 Team Status: Inactive Member Role/Relationship Status Dates Adeel QUINN , [facility] Attending Provider Active Start: March 02, 2025 End: March 02, 2025 Team Status: Inactive Member Role/Relationship Status Dates Jaxson Gonzales DO Attending Provider Active Start : March 12, 2025 End: March 12, 2025Team MemberRelationshipSpecialtyStart DateEnd Date Warren Prieto DO [address] [place] [address] [facility]/29/22Team MemberRelationshipSpecialtyStart DateEnd Date Warren Prieto DO [address] [place] [address] PCP - [facility]09/29/22 Goals (unrecognized section and content) Health Concern [...] Pt states that she will starting at [facility] and she will need the wellness for [...] BE BASED ON THE PRIMARY CLINICAL RECORDS. [employer] provides no warranty or guarantee of the accuracy or completeness of information in this document.
[2025-04-02 10:35] LABS: Hematocrit 41.4 % (36.0-48.0); Hemoglobin 13.6 g/dL (12.0-16.0); Immature Granulocytes Abs Auto 0.01 10^3/uL (0.00-0.03); Immature Granulocytes Pct Auto 0.2 % (0.0-0.5); Lymphocytes Absolute Auto 1.7 10^3/uL (1.2-3.8); Mean Corpuscular HGB Conc 32.9 g/dL (29.9-35.2); Mean Corpuscular Hemoglobin 29.3 pg (26.7-34.0); Mean Corpuscular Volume 89.2 fL (81.0-99.0); Platelet Count 168 10^3/uL (150-450); Red Blood Count 4.64 10^6/uL (4.20-5.40); White Blood Count 5.7 10^3/uL (4.0-11.0)
[2025-04-02 10:58] LABS: INR 0.97; Partial Thromboplastin Time 28.8 sec (22.3-36.2); Prothrombin Time 10.3 sec (9.0-11.6)
[2025-04-02 11:16] LABS: Alanine Aminotransferase 28 U/L (14-59); Albumin Globulin Ratio 1.1; Albumin Level 3.6 g/dL (3.4-5.0); Alkaline Phosphatase 82 U/L (46-116); Anion Gap 10.8; Aspartate Amino Transferase 12 U/L (15-37); Blood Urea Nitrogen 12.0 mg/dL (7.0-18.0); Calcium 8.9 mg/dL (8.5-10.1); Carbon Dioxide 27.8 mmol/L (21.0-32.0); Chloride 105 mmol/L (98-107); Estimated GFR (African America >60 (>=60 mL/min/1.73m^2); Estimated GFR (Non-African Ame >60 (>=60 mL/min/1.73m^2); Globulin 3.2 g/dL; Glucose 95 mg/dL (74-106); Potassium 3.6 mmol/L (3.5-5.1); Sodium 140 mmol/L (136-145); Total Protein 6.8 g/dL (6.4-8.2)
== END 2025-04-02 09:53 | disposition home or self-care (01) ==
LOC: PST 09:53
PROVIDERS: PCP Family Medicine; Visit Provider Obstetrics & Gynecology
DX: Z01.812 Encounter for preprocedural laboratory examination (principal); N94.6 Dysmenorrhea, unspecified; N94.10 Unspecified dyspareunia; N92.0 Excessive and frequent menstruation with regular cycle; R87.613 High grade squamous intraepithelial lesion on cytologic smear of cervix (HGSIL)
CPT/HCPCS: 80048; 80076; 85025; 85610; 85730; 86850; 86900; 86901

== ENCOUNTER 2025-04-11 05:55 | Day surgery (SDC) | payer MEDICAID, SELFPAY ==
--- OUTSIDE RECORDS SUMMARY | 2024-12-28 03:04 | XMS_ITS | Continuity of Care Document ---
Author Organization [facility] Address [address] [place] [address] Phone Care Team Providers Care Certified Medication Technician Name Role Phone Mitzi FERMIN Genaro Unavailable [...] Fluoride Varnish Nutrit Couns For Control Of [place] Dis Dec Oral Hygiene Instruction High Risk Intraoral-periapical 1st Film Oral Hygiene Instruction Limited Oral Eval Periodontal Scalin And Root Planning 1 T o 3 Teeth Periodontal Scalin And Root Planning 1 T o 3 Teeth Nutrit Couns For Control Of [place] Dis Apr Oral Hygiene Instruction Nutrit Couns For Control Of [place] Dis Mar Resin Composite 2s; Posterior 4 Bitewings Four Films Comprehensive Perio Eval Perio Charting Intraoral-periapical 1st Film 4 Nutrit Couns For Control Of [place] Dis Dec Oral Hygiene Instruction Oral Hygiene Instruction Resin Composite 2s; Posterior 3 Intraoral-periapical 1st Film 3 Oral Hygiene Instruction Resin Two Surfaces Anterior Resin Three Surfaces Anterior 2 Intraoral-complete Series (bw) Comp Oral Eval New/estab Patient 2021 High Risk Nutrit Couns For Control Of [place] Dis Mar NEW FP MEDICAID OFFICE/OUTPATIENT VISIT, EST OFFICE/OUTPATIENT VISIT, EST Levonorgestrel iu contracept PREV VISIT, EST, AGE 18-39 URINE TEST OFFICE/OUTPATIENT VISIT, NEW Advance Directives Directive Yes / No Effective Date File Name No Information Encounters Encounter Description Practice Location Reason(s) For Visit Diagnoses Date Provider Providers Copied on Encounter [facility], [address] [place] [address], [id number], tel:[phone] Dental Clinic SRP (chief complaint) Encounter for screening for dental disorders 5 Charlesandreas Jamesal. [address] [place], [place], [id number], [place]. tel:[phone] [facility], [address] [place] [address], [id number], tel:[phone] Dental Clinic dl (chief complaint) Body mass index [BMI] 32.0-32.9, adultEncounter for screening for dental disorders 5 Charlesandreas CHRISTENSEN Genaro. [address] [place], [place], [id number], [place]. tel:[phone] [facility], [address] [place] [address], [id number], [place] tel:[phone] [facility] Dental Clinic SRP (chief complaint) Body mass index [BMI] 35.0-35.9, adultEncounter for screening for dental disorders 4 Mitzi Jamesal. [address] [place], [place], [id number], [place]. tel:[phone] [facility], [address] [place], [place], [id number], [place] tel:[phone] Dental Clinic fill (chief complaint) Encounter for screening for dental disorders 4 Mitzi Lam. [address] [place], [place], [id number], [place]. tel:[phone] [facility], [address] [place], [place], [id number], [place] tel:[phone] Dental Clinic PE (chief complaint) Body mass index [BMI] 34.0-34.9, adultEncounter for screening for dental disorders 4 Mitzi Lam. [address] [place], [place], [id number], [place]. tel:[phone] [facility], [address] [place], [place], [id number], [place] tel:[phone] Dental Clinic fill (chief complaint) Encounter for screening for dental disorders 3 Mitzi Lam. [address] [place], [place], [id number], [place]. tel:[phone] [facility], [address] [place], [place], [id number], [place] tel:[phone] Dental Clinic diamante (chief complaint) Encounter for screening for dental disorders 2 Mitzi Lam. [address] [place], [place], [id number], [place]. tel:[phone] [facility], [address] [place], [place], [id number], [place] tel:[phone] Dental Clinic DN (chief complaint) Encounter for screening for dental disorders 2 Mitzi Lam. [address] [place], [place], [id number], [place]. tel:[phone] [facility], [address] [place] [address], [id number], [place] tel:[phone] [facility] No Information 2 Lamp Avril. [address] [place], [place], [id number], [place]. tel:[phone] OFFICE/OUTPAT IENT VISIT, [facility], [address] [place], [place], [id number], [place] tel:[phone] [facility] No Information 1 Lamp Avril. [address] [place], [place], [id number], [place]. tel:[phone] OFFICE/OUTPAT IENT VISIT, [facility], [address] [place], [place], [id number], [place] tel:[phone] [facility] No Information 1 Lamp Avril. [address] [place], [place], [id number], [place]. tel:[phone] PREV VISIT, [facility], AGE 18-39 [facility], [address] [place], [place], [id number], [place] tel:[phone] [facility] No Information 1 Leigh Mackenzie. [address] [place], [place], [id number], [place]. tel:[phone] OFFICE/OUTPAT IENT VISIT, [facility], [address] [place], [place], [id number], [place] tel:[phone] [facility] No Information 9 Kasi Conn. [address] [place], [place], [id number]. tel:[phone] Family History Family Member Type Diagnosis Age At Onset No Information Payers Payer name Insurance type Covered libertarian ID Vince holguin(luz) Sheyla [place] Medicaid [facility] [id number] D Medicaid [facility] [id number] Social History Type Description Quantity Date Captured [...] Of Treatment Date Type Action Status Goal Influenza vaccine. Due on Au due Goal Depression screening. Due on due Goal PRAPARE ASSESSMENT. Due on A due Goal Hepatitis C screening. Due o n due Goal Tdap. Due on due Goal Unhealthy drug use screening . Due on due Goal RLP. Due on due Goal HPV. Due on due Goal Tdap Vaccine. Due on 2024 due Goal Hep A. Due on du e Goal Unhealthy drug use screening . Due on due Goal PRAPARE ASSESSMENT. Due on M due Goal Tdap Vaccine. Due on 2024 due Goal HPV. Due on due Goal Hepatitis C screening. Due o n due Goal RLP. Due on due Goal Tdap. Due on due Goal Depression screening. Due on due Goal Influenza vaccine. Due on Ma due Goal Dietary management education , guidance, and counseling completed Goal Hep A. Due on du e Goal Depression screening. Due on due Goal Hepatitis C screening. Due o n due Goal Unhealthy drug use screening . Due on due Goal Tdap Vaccine. Due on 2023 due Goal HPV. Due on due Goal PRAPARE ASSESSMENT. Due on D due Goal Influenza vaccine. Due on De due Goal Tdap. Due on due Goal RLP. Due on due Goal Dietary management education , guidance, and counseling completed Goal RLP. Due on due Goal Hepatitis C screening. Due o n due Goal Unhealthy drug use screening . Due on due Goal Depression screening. Due on due Goal HPV. Due on due Goal PRAPARE ASSESSMENT. Due on N due Goal Tdap. Due on due Goal Influenza vaccine. Due on No due Goal Tdap Vaccine. Due on 2023 due Goal Depression screening. Due on due Goal Unhealthy drug use screening . Due on due Goal Tdap Vaccine. Due on 2023 due Goal RLP. Due on due Goal Hepatitis C screening. Due o n due Goal Influenza vaccine. Due on Au due Goal PRAPARE ASSESSMENT. Due on A due Goal HPV. Due on due Goal Tdap. Due on due Goal Dietary management education , guidance, and counseling completed Goal Unhealthy drug use screening . Due on due Goal RLP. Due on due Goal Depression screening. Due on due Goal Tdap Vaccine. Due on 2022 due Goal PRAPARE ASSESSMENT. Due on O due Goal Influenza vaccine. Due on Oc due Goal HPV. Due on due Goal Tdap. Due on due Goal Hepatitis C screening. Due o n due Goal RLP. Due on due Goal PRAPARE ASSESSMENT. Due on D due Goal Depression screening. Due on due Goal Tdap. Due on due Goal Influenza vaccine. Due on De due Goal RLP. Due on due Goal PRAPARE ASSESSMENT. Due on N due Goal Depression screening. Due on due Goal Tdap. Due on due Goal Influenza vaccine. Due on No due Referral Ordered: Warren Prieto DO timeframe: 6 Months. (related to Body mass index [BMI] 34.0- 34.9, adult) [id number], HeatherBOOKED History Of Present Illness Encounter Date [...] to Body mass index [BMI] 35.0-35.9, adult Giving encouragement to exercise Related to Body mass index [BMI] 34.0-34.9, adult Dietary management e ducation, guidance, and counseling Related to Body mass index [BMI] 34.0-34.9, adult Assessments Type Assessment Date assessment Encounter for screening for dent al disorders Patient Care Teams Name Effective Dates (start - stop) Status Members No Information
--- OUTSIDE RECORDS SUMMARY | 2024-12-28 03:04 | XMS_ITS | Continuity of Care Document ---
Author Organization [facility] Address [address] [place] [address] Phone Care Team Providers Care Associate Professor Of Violin Name Role Phone Mitzi FERMIN Genaro Unavailable [...] Fluoride Varnish Nutrit Couns For Control Of [place] Dis Dec Oral Hygiene Instruction High Risk Intraoral-periapical 1st Film Oral Hygiene Instruction Limited Oral Eval Periodontal Scalin And Root Planning 1 T o 3 Teeth Periodontal Scalin And Root Planning 1 T o 3 Teeth Nutrit Couns For Control Of [place] Dis Apr Oral Hygiene Instruction Nutrit Couns For Control Of [place] Dis Mar Resin Composite 2s; Posterior 4 Bitewings Four Films Comprehensive Perio Eval Perio Charting Intraoral-periapical 1st Film 4 Nutrit Couns For Control Of [place] Dis Dec Oral Hygiene Instruction Oral Hygiene Instruction Resin Composite 2s; Posterior 3 Intraoral-periapical 1st Film 3 Oral Hygiene Instruction Resin Two Surfaces Anterior Resin Three Surfaces Anterior 2 Intraoral-complete Series (bw) Comp Oral Eval New/estab Patient 2021 High Risk Nutrit Couns For Control Of [place] Dis Mar NEW FP MEDICAID OFFICE/OUTPATIENT VISIT, EST OFFICE/OUTPATIENT VISIT, EST Levonorgestrel iu contracept PREV VISIT, EST, AGE 18-39 URINE TEST OFFICE/OUTPATIENT VISIT, NEW Advance Directives Directive Yes / No Effective Date File Name No Information Encounters Encounter Description Practice Location Reason(s) For Visit Diagnoses Date Provider Providers Copied on Encounter [facility], [address] [place] [address], [id number], tel:[phone] Dental Clinic SRP (chief complaint) Encounter for screening for dental disorders 5 Charlesandreas Jamesal. [address] [place], [place], [id number], [place]. tel:[phone] [facility], [address] [place] [address], [id number], tel:[phone] Dental Clinic dl (chief complaint) Body mass index [BMI] 32.0-32.9, adultEncounter for screening for dental disorders 5 Charlesandreas CHRISTENSEN Genaro. [address] [place], [place], [id number], [place]. tel:[phone] [facility], [address] [place] [address], [id number], [place] tel:[phone] [facility] Dental Clinic SRP (chief complaint) Body mass index [BMI] 35.0-35.9, adultEncounter for screening for dental disorders 4 Mitzi Jamesal. [address] [place], [place], [id number], [place]. tel:[phone] [facility], [address] [place], [place], [id number], [place] tel:[phone] Dental Clinic fill (chief complaint) Encounter for screening for dental disorders 4 Mitzi Lam. [address] [place], [place], [id number], [place]. tel:[phone] [facility], [address] [place], [place], [id number], [place] tel:[phone] Dental Clinic PE (chief complaint) Body mass index [BMI] 34.0-34.9, adultEncounter for screening for dental disorders 4 Mitzi Lam. [address] [place], [place], [id number], [place]. tel:[phone] [facility], [address] [place], [place], [id number], [place] tel:[phone] Dental Clinic fill (chief complaint) Encounter for screening for dental disorders 3 Mitzi Lam. [address] [place], [place], [id number], [place]. tel:[phone] [facility], [address] [place], [place], [id number], [place] tel:[phone] Dental Clinic diamante (chief complaint) Encounter for screening for dental disorders 2 Mitzi Lam. [address] [place], [place], [id number], [place]. tel:[phone] [facility], [address] [place], [place], [id number], [place] tel:[phone] Dental Clinic DN (chief complaint) Encounter for screening for dental disorders 2 Mitzi Lam. [address] [place], [place], [id number], [place]. tel:[phone] [facility], [address] [place] [address], [id number], [place] tel:[phone] [facility] No Information 2 Lamp Avril. [address] [place], [place], [id number], [place]. tel:[phone] OFFICE/OUTPAT IENT VISIT, [facility], [address] [place], [place], [id number], [place] tel:[phone] [facility] No Information 1 Lamp Avril. [address] [place], [place], [id number], [place]. tel:[phone] OFFICE/OUTPAT IENT VISIT, [facility], [address] [place], [place], [id number], [place] tel:[phone] [facility] No Information 1 Lamp Avril. [address] [place], [place], [id number], [place]. tel:[phone] PREV VISIT, [facility], AGE 18-39 [facility], [address] [place], [place], [id number], [place] tel:[phone] [facility] No Information 1 Leigh Mackenzie. [address] [place], [place], [id number], [place]. tel:[phone] OFFICE/OUTPAT IENT VISIT, [facility], [address] [place], [place], [id number], [place] tel:[phone] [facility] No Information 9 Kasi Conn. [address] [place], [place], [id number]. tel:[phone] Family History Family Member Type Diagnosis Age At Onset No Information Payers Payer name Insurance type Covered constitution party ID Vince holguin(luz) Sheyla [place] Medicaid [facility] [employer] [facility] [id number] D Medicaid [facility] [id number] Social History Type Description Quantity Date Captured [...] Body mass index [BMI] 34.0- 34.9, adult) [id number], HeatherBOOKED History Of Present Illness Encounter Date [...]
--- OUTSIDE RECORDS SUMMARY | 2024-12-28 03:04 | XMS_ITS | Continuity of Care Document ---
Author Organization [facility] Address [address] [place] [address] Phone Care Team Providers Care Spray Pilot Name Role Phone Mitzi FERMIN Genaro Unavailable [...] Fluoride Varnish Nutrit Couns For Control Of [place] Dis Dec Oral Hygiene Instruction High Risk Intraoral-periapical 1st Film Oral Hygiene Instruction Limited Oral Eval Periodontal Scalin And Root Planning 1 T o 3 Teeth Periodontal Scalin And Root Planning 1 T o 3 Teeth Nutrit Couns For Control Of [place] Dis Apr Oral Hygiene Instruction Nutrit Couns For Control Of [place] Dis Mar Resin Composite 2s; Posterior 4 Bitewings Four Films Comprehensive Perio Eval Perio Charting Intraoral-periapical 1st Film 4 Nutrit Couns For Control Of [place] Dis Dec Oral Hygiene Instruction Oral Hygiene Instruction Resin Composite 2s; Posterior 3 Intraoral-periapical 1st Film 3 Oral Hygiene Instruction Resin Two Surfaces Anterior Resin Three Surfaces Anterior 2 Intraoral-complete Series (bw) Comp Oral Eval New/estab Patient 2021 High Risk Nutrit Couns For Control Of [place] Dis Mar NEW FP MEDICAID OFFICE/OUTPATIENT VISIT, EST OFFICE/OUTPATIENT VISIT, EST Levonorgestrel iu contracept PREV VISIT, EST, AGE 18-39 URINE TEST OFFICE/OUTPATIENT VISIT, NEW Advance Directives Directive Yes / No Effective Date File Name No Information Encounters Encounter Description Practice Location Reason(s) For Visit Diagnoses Date Provider Providers Copied on Encounter [facility], [address] [place] [address], [id number], tel:[phone] Dental Clinic SRP (chief complaint) Encounter for screening for dental disorders 5 Charlesandreas Jamesal. [address] [place], [place], [id number], [place]. tel:[phone] [facility], [address] [place] [address], [id number], tel:[phone] Dental Clinic dl (chief complaint) Body mass index [BMI] 32.0-32.9, adultEncounter for screening for dental disorders 5 Charlesandreas CHRISTENSEN Genaro. [address] [place], [place], [id number], [place]. tel:[phone] [facility], [address] [place] [address], [id number], [place] tel:[phone] [facility] Dental Clinic SRP (chief complaint) Body mass index [BMI] 35.0-35.9, adultEncounter for screening for dental disorders 4 Mitzi Jamesal. [address] [place], [place], [id number], [place]. tel:[phone] [facility], [address] [place], [place], [id number], [place] tel:[phone] Dental Clinic fill (chief complaint) Encounter for screening for dental disorders 4 Mitzi Lam. [address] [place], [place], [id number], [place]. tel:[phone] [facility], [address] [place], [place], [id number], [place] tel:[phone] Dental Clinic PE (chief complaint) Body mass index [BMI] 34.0-34.9, adultEncounter for screening for dental disorders 4 Mitzi Lam. [address] [place], [place], [id number], [place]. tel:[phone] [facility], [address] [place], [place], [id number], [place] tel:[phone] Dental Clinic fill (chief complaint) Encounter for screening for dental disorders 3 Mitzi Lam. [address] [place], [place], [id number], [place]. tel:[phone] [facility], [address] [place], [place], [address], [place] tel:[phone] Dental Clinic diamante (chief complaint) Encounter for screening for dental disorders 2 Mitzi Lam. [address] [place], [place], [id number], [place]. tel:[phone] [facility], [address] [place], [place], [id number], [place] tel:[phone] Dental Clinic DN (chief complaint) Encounter for screening for dental disorders 2 Mitzi Lam. [address] [place], [place], [id number], [place]. tel:[phone] [facility], [address] [place] [address], [id number], [place] tel:[phone] [facility] No Information 2 Lamp Avril. [address] [place], [place], [id number], [place]. tel:[phone] OFFICE/OUTPAT IENT VISIT, [facility], [address] [place], [place], [id number], [place] tel:[phone] [facility] No Information 1 Lamp Avril. [address] [place], [place], [id number], [place]. tel:[phone] OFFICE/OUTPAT IENT VISIT, [facility], [address] [place], [place], [id number], [place] tel:[phone] [facility] No Information 1 Lamp Avril. [address] [place], [place], [id number], [place]. tel:[phone] PREV VISIT, [facility], AGE 18-39 [facility], [address] [place], [place], [id number], [place] tel:[phone] [facility] No Information 1 Leigh Mackenzie. [address] [place], [place], [id number], [place]. tel:[phone] OFFICE/OUTPAT IENT VISIT, [facility], [address] [place], [place], [id number], [place] tel:[phone] [facility] No Information 9 Kasi Conn. [address] [place], [place], [id number]. tel:[phone] Family History Family Member Type Diagnosis Age At Onset No Information Payers Payer name Insurance type Covered green party ID Vince holguin(luz) Sheyla [place] Medicaid [facility] [id number] D Medicaid [facility] [id number] Social History Type Description Quantity Date Captured [...] due Goal Tdap. Due on due Goal Tdap Vaccine. Due on 2024 due Goal Unhealthy drug use screening . Due on due Goal RLP. Due on due Goal HPV. Due on due Goal Hep A. Due on du [...] Tdap Vaccine. Due on 2023 due Goal PRAPARE ASSESSMENT. Due on A due Goal HPV. Due on due Goal Tdap. Due on due Goal Influenza vaccine. Due on Au due Goal Hepatitis C screening. Due o n due Goal RLP. Due on due Goal Tdap Vaccine. Due on 2023 due Goal Unhealthy drug use screening . Due on due Goal Depression screening. Due on due Goal Dietary management education [...] PRAPARE ASSESSMENT. Due on D due Goal RLP. Due on due Goal RLP. Due on due Goal PRAPARE ASSESSMENT. Due on N due Goal Depression screening. Due on due Goal Tdap. Due on due Goal Influenza vaccine. Due on No due Referral Ordered: Warren Prieto DO timeframe: 6 Months. (related to Body mass index [BMI] 34.0- 34.9, adult) [id number], HeatherBOOKDANYEL History Of Present Illness Encounter Date Complaint History Of Prese nt Illness SRP SRP dl SRP SRP fill PE PE fill diamante diamante DN Functional Status Date Functional Assessmen t No Information Instructions Date Instruction Additional Infor mation Dietary management e ducation, guidance, and counseling Related to Body mass index [BMI] 32.0-32.9, adult Dietary management e ducation, guidance, and [...]
--- OUTSIDE RECORDS SUMMARY | 2024-12-28 03:04 | XMS_ITS | Continuity of Care Document ---
Author Organization [facility] Address [address] [place] [address] Phone Care Team Providers Care Addiction Professional Name Role Phone Mitzi FERMIN Genaro Unavailable [...] Fluoride Varnish [employer] [place] Dis Dec Oral Hygiene Instruction High Risk Intraoral-periapical 1st Film Oral Hygiene Instruction Limited Oral Eval Periodontal Scalin And Root Planning 1 T o 3 Teeth Periodontal Scalin And Root Planning 1 T o 3 Teeth [employer] [place] Dis Apr Oral Hygiene Instruction [employer] [place] Dis Mar Resin Composite 2s; Posterior 4 Bitewings Four Films Comprehensive Perio Eval Perio Charting Intraoral-periapical 1st Film 4 [employer] [place] Dis Dec Oral Hygiene Instruction Oral Hygiene Instruction Resin Composite 2s; Posterior 3 Intraoral-periapical 1st Film 3 Oral Hygiene Instruction Resin Two Surfaces Anterior Resin Three Surfaces Anterior 2 Intraoral-complete Series (bw) Comp Oral Eval New/estab Patient 2021 High Risk [employer] [place] Dis Mar NEW FP MEDICAID OFFICE/OUTPATIENT VISIT, EST OFFICE/OUTPATIENT VISIT, EST Levonorgestrel iu contracept PREV VISIT, EST, AGE 18-39 URINE TEST OFFICE/OUTPATIENT VISIT, NEW Advance Directives Directive Yes / No Effective Date File Name No Information Encounters Encounter Description Practice Location Reason(s) For Visit Diagnoses Date Provider Providers Copied on Encounter [facility], [address] [place] [address], [id number], tel:[phone] Dental [facility] SRP (chief complaint) Encounter for screening for dental disorders 5 Charlesandreas Jamesal. [address] [place], [place], [id number], [place]. tel:[phone] [facility], [address] [place] [address], [id number], tel:[phone] Dental Clinic dl (chief complaint) Body mass index [BMI] 32.0-32.9, adultEncounter for screening for dental disorders 5 Charlesandreas CHRISTENSEN Genaro. [address] [place], [place], [id number], [place]. tel:[phone] [facility], [address] [place] [address], [id number], [place] tel:[phone] [facility] SRP (chief complaint) Body mass index [BMI] 35.0-35.9, adultEncounter for screening for dental disorders 4 Mitzi Jamesal. [address] [place], [place], [id number], [place]. tel:[phone] [facility], [address] [place], [place], [id number], [place] tel:[phone] Dental Clinic fill (chief complaint) Encounter for screening for dental disorders 4 Mitzi Lam. [address] [place], [place], [id number], [place]. tel:[phone] [facility], [address], [place], [id number], [place] tel:[phone] Dental Clinic PE (chief complaint) Body mass index [BMI] 34.0-34.9, adultEncounter for screening for dental disorders 4 Mitzi Lam. [address] [place], [place], [id number], [place]. tel:[phone] [facility], [address], [place], [id number], [place] tel:[phone] Dental Clinic fill (chief complaint) Encounter for screening for dental disorders 3 Mitzi Lam. [address] [place], [place], [id number], [place]. tel:[phone] [facility], [address], [place], [id number], [place] tel:[phone] Dental Clinic diamante (chief complaint) Encounter for screening for dental disorders 2 Mitzi Lam. [address] [place], [place], [id number], [place]. tel:[phone] [facility], [address], [place], [id number], [place] tel:[phone] Dental Clinic DN (chief complaint) Encounter for screening for dental disorders 2 Mitzi Lam. [address] [place], [place], [id number], [place]. tel:[phone] [facility], [address] [place] [address], [id number], [place] tel:[phone] [facility] No Information 2 Lamp Avril. [address], [place], [id number], [place]. tel:[phone] OFFICE/OUTPAT IENT VISIT, [facility], [address], [place], [id number], [place] tel:[phone] [facility] No Information 1 Lamp Avril. [address] [place], [place], [id number], [place]. tel:[phone] OFFICE/OUTPAT IENT VISIT, [facility], [address], [place], [id number], [place] tel:[phone] [facility] No Information 1 Lamp Avril. [address], [place], [id number], [place]. tel:[phone] PREV VISIT, [facility], AGE 18-39 [facility], [address], [place], [id number], [place] tel:[phone] [facility] No Information 1 Leigh Mackenzie. [address], [place], [id number], [place]. tel:[phone] OFFICE/OUTPAT IENT VISIT, [facility], [address], [place], [id number], [place] tel:[phone] [facility] No Information 9 Kasi Conn. [address], [place], [id number]. tel:[phone] Family History Family Member Type Diagnosis Age At Onset No Information Payers Payer name Insurance type Covered democrat ID iVnce holguin(luz) Sheyla [place] Medicaid [facility] [id number] D Medicaid [facility] [id number] Social History Type Description Quantity Date Captured [...] Body mass index [BMI] 34.0- 34.9, adult) [id number], HeatherBOOKED History Of Present Illness Encounter Date [...]
--- OUTSIDE RECORDS SUMMARY | 2024-12-28 03:04 | XMS_ITS | Continuity of Care Document ---
Author Organization [facility] Address [address] [place] [address] Phone Care Team Providers Care Therapeutic Recreation Leader Name Role Phone Mitzi FERMIN Genaro Unavailable [...] Fluoride Varnish Nutrit [employer] For [employer] Of [place] Dis Dec Oral Hygiene Instruction High Risk Intraoral-periapical 1st Film Oral Hygiene Instruction Limited Oral Eval Periodontal Scalin And Root Planning 1 T o 3 Teeth Periodontal Scalin And Root Planning 1 T o 3 Teeth [employer] [place] Dis Apr Oral Hygiene Instruction [employer] [place] Dis Mar Resin Composite 2s; Posterior 4 Bitewings Four Films Comprehensive Perio Eval Perio Charting Intraoral-periapical 1st Film 4 [employer] [place] Dis Dec Oral Hygiene Instruction Oral Hygiene Instruction Resin Composite 2s; Posterior 3 Intraoral-periapical 1st Film 3 Oral Hygiene Instruction Resin Two Surfaces Anterior Resin Three Surfaces Anterior 2 Intraoral-complete Series (bw) Comp Oral Eval New/estab Patient 2021 High Risk [employer] [place] Dis Mar NEW FP MEDICAID OFFICE/OUTPATIENT VISIT, EST OFFICE/OUTPATIENT VISIT, EST Levonorgestrel iu contracept PREV VISIT, EST, AGE 18-39 URINE TEST OFFICE/OUTPATIENT VISIT, NEW Advance Directives Directive Yes / No Effective Date File Name No Information Encounters Encounter Description Practice Location Reason(s) For Visit Diagnoses Date Provider Providers Copied on Encounter [facility], [address] [place] [address], [id number], tel:[phone] Dental Clinic SRP (chief complaint) Encounter for screening for dental disorders 5 Charlesandreas Jamesal. [address] [place], [place], [id number], [place]. tel:[phone] [facility], [address] [place] [address], [id number], tel:[phone] Dental Clinic dl (chief complaint) Body mass index [BMI] 32.0-32.9, adultEncounter for screening for dental disorders 5 Charlesandreas CHRISTENSEN Genaro. [address] [place], [place], [id number], [place]. tel:[phone] [facility], [address] [place] [address], [id number], [place] tel:[phone] [facility] Dental Clinic SRP (chief complaint) Body mass index [BMI] 35.0-35.9, adultEncounter for screening for dental disorders 4 Mitzi Jamesal. [address] [place], [place], [id number], [place]. tel:[phone] [facility], [address] [place], [place], [id number], [place] tel:[phone] Dental Clinic fill (chief complaint) Encounter for screening for dental disorders 4 Mitzi Lam. [address] [place], [place], [id number], [place]. tel:[phone] [facility], [address] [place], [place], [id number], [place] tel:[phone] Dental Clinic PE (chief complaint) Body mass index [BMI] 34.0-34.9, adultEncounter for screening for dental disorders 4 Mitzi Lam. [address] [place], [place], [id number], [place]. tel:[phone] [facility], [address] [place], [place], [id number], [place] tel:[phone] Dental Clinic fill (chief complaint) Encounter for screening for dental disorders 3 Mitzi Lam. [address] [place], [place], [id number], [place]. tel:[phone] [facility], [address] [place], [place], [id number], [place] tel:[phone] Dental Clinic diamante (chief complaint) Encounter for screening for dental disorders 2 Mitzi Lam. [address] [place], [place], [id number], [place]. tel:[phone] [facility], [address] [place], [place], [id number], [place] tel:[phone] Dental Clinic DN (chief complaint) Encounter for screening for dental disorders 2 Mitzi Lam. [address] [place], [place], [id number], [place]. tel:[phone] [facility], [address] [place] [address], [id number], [place] tel:[phone] [facility] No Information 2 Lamp Avril. [address] [place], [place], [id number], [place]. tel:[phone] OFFICE/OUTPAT IENT VISIT, [facility], [address] [place], [place], [id number], [place] tel:[phone] [facility] No Information 1 Lamp Avril. [address] [place], [place], [id number], [place]. tel:[phone] OFFICE/OUTPAT IENT VISIT, [facility], [address] [place], [place], [id number], [place] tel:[phone] [facility] No Information 1 Lamp Avril. [address] [place], [place], [id number], [place]. tel:[phone] PREV VISIT, [facility], AGE 18-39 [facility], [address] [place], [place], [id number], [place] tel:[phone] [facility] No Information 1 Leigh Mackenzie. [address] [place], [place], [id number], [place]. tel:[phone] OFFICE/OUTPAT IENT VISIT, [facility], [address] [place], [place], [id number], [place] tel:[phone] [facility] No Information 9 Kasi Conn. [address] [place], [place], [id number]. tel:[phone] Family History Family Member Type Diagnosis Age At Onset No Information Payers Payer name Insurance type Covered libertarian ID Vince holguin(luz) Sheyla [place] Medicaid [facility] [id number] [facility] [id number] Social History Type Description Quantity Date Captured [...] Body mass index [BMI] 34.0- 34.9, adult) [id number], HeatherBOOKED History Of Present Illness Encounter Date [...]
[2025-04-02 10:23] VITALS: BP 110/78; PULSE 81; TEMP 36.2; O2SAT 99; BMI 34.7
[2025-04-11] VITALS (14 sets, daily range): BP systolic 96–113; BP diastolic 62–90; PULSE 75–966; TEMP 36.1–36.6; O2SAT 92–100; BMI 34.7
--- OUTSIDE RECORDS SUMMARY | 2025-04-11 06:00 | XMS_ITS | CCD ---
Author Organization [facility] Care Team Providers Care Fuse Spooler Name Role Phone Gabino Prieto Primary Care Provider Unavaila willy GONZALES, DR PAIZ Admitting Unavailable HCRISTIAN, DR PAIZ Attending Unavailable KASHAN, DR Stoney [...] Attending Provider Jaxson Gonzales DO Attending Provider [phone] Kanani DMD, Genaro Attending Unavailable Warren Prieto DO Primary Care Unavailable Kanani DMD, Genaro Unavailable Unavailable Tania Dove APRN Attending Provider Gabino Prieto DO [facility] Provider [facility] Adeel CORREA Attending Provider Jaxson Gonzales DO Attending Provider JAXSON GONZALES Attending Unavailable JAXSON GONZALES Attending Unavailable CORRINE LAMAR Attending Unavailable JAXSON GONZALES Attending Unavailable MADI ALVARES Attending UnavailELLEN Pina Attending Unavailable CORRINE LAMAR Attending Unavailable JAXSON GONZALES Attending Unavailable JaocbTaylor Regional HospitalAdeel Admitting Unavailable Dandy Adeel QUINN Attending Unavailable Jaxson Gonzales Admitting Unavailable Jaxson Gonzales Attending Unavailable Jaxson Gonzales Admitting Unavailable Jaxson Gonazles Attending Unavailable Wes John Jr Attending Unavailable Gabino Prieto Primary Care Unavailable Wes John Jr Admitting Unavailable Tania Dove Admitting Unavailable Tania Dove Attending [facility] Admitting Unavailable [facility] Attending Unavailable Unavailable Unavailable Unavailable Allergies Allergy ClassificationReported Allergen(s)Allergy TypeDate of OnsetReaction(s) Facility (20 sources)levoFLOXacin; Translations: [levofloxacin]Drug Hieeuqm54-41-8478 [facility] (1 source)levoFLOXacinDrug Jkbgtfs41-68-3765[facility]Bet[facility] (16 sources)levoFLOXacinDrug Llneqfq77-15-6189NRXQ Healthcare Medications Current Medications MedicationDrug Class(es)DatesSig (Normalized)Sig (Original)benzonatate 100 mg oral capsule (2 sources)Non-narcotic AntitussiveStart: 07-05-2024 End: 94-51-5259oiit 1 capsule by mouth three times daily as needed for cough benzonatate (Tessalon) 100 MG capsule TAKE 1 CAPSULE BY MOUTH 3 TIMES A DAY NEEDED FOR COUGH 07/05/2024 08/22/2024 Discontinuedbrompheniramine maleate 0.4 mg/ml / dextromethorphan hydrobromide 2 mg/ml / pseudoephedrine hydrochloride 6 mg/ml oral solution (4 sources)alpha-Adrenergic Agonist, Uncompetitive R-gfflye-W-aspartate Receptor Antagonist, Sigma-1 AgonistStart: 09-11-2024 End: 71-90-7624rpxd 5 mL by mouth four times daily as needed for congestion iqteryvhpuzzcne-ecngjzfpffkalxo-VF 30-2-10 MG/5ML syrup Indications: Viral URI Take 5 mL by mouth 4(four) times a day as needed for congestion for up to 10 days 120 mL 09/11/2024 09/26/2024 Discontinued (Discontinued by another clinician)cephalexin 500 mg oral capsule (2 sources)Cephalosporin AntibacterialStart: 05-22-2024 End: 52-88-1796lsge 1 capsule by mouth in the morning, [...] 12 hr tablet (2 sources)Start: 07-05-2024 End: 02-71-4360rstc 5-120 mg by mouth every twelve hours as neededCVS Allergy Relief D 5-120 MG 12 hr tablet TAKE 1 TAB ORALLY EVERY 12 HOURS NEEDED FOR NASAL CONGESTION 07/05/2024 08/22/2024 Discontinuedibuprofen 200 mg oral tablet (2 sources)Nonsteroidal Anti-inflammatory Drug End: 54-47-7255caus 1 tablet by mouth every six hours as neededibuprofen 200 MG tablet Take 200 mg by mouth every 6 (six) hours if needed 08/22/2024 DiscontinuedNirmatrelvir-Ritonavir (Paxlovid) 300 mg (150 mg x 2)-100 mg tablets,dose pack (6 sources)Start: 44-32-4655Fgwkwqhzteap-Ritonavir (Paxlovid) 300 mg (150 mg x 2)-100 mg tablets,dose pack Active 0 PO .XLQZYRY19 February 02, 2024 12:00am take TWO 150 mg tablets of nirmatrelvir with ONE 100 mg tablet of ritonavir twice daily for 5 days POStart: 02-02-2024 End: 07-78-4094Dzpblsstzpwm-Ritonavir (Paxlovid) 300 mg (150 mg x 2)-100 mg tablets,dose pack Discontinued 0 PO .COMPLEX February 02, 2024 12:00am February 02, 2024 6:58pm take TWO 150 mg tablets of nirmatrelvir with ONE 100 mg tablet of ritonavir twice daily for 5 days POnitrofurantoin, macrocrystals 25 mg / nitrofurantoin, monohydrate 75 mg oral capsule (3 sources)Nitrofuran AntibacterialStart: 46-69-9756wqpn 1 capsule by mouth every twelve hours at mealtimeNo Name (No Known Home Meds) (1 source)Start: 83-78-0586Tw Name (No Known Home Meds) Active February 10, 2025 12:00amPaxlovid, 300/100, 20 x 150 MG & 10 x 100MG tablet therapy pack (2 sources)Start: 02-02-2024 End: 84-25-7460Gvgjrcxo, 300/100, 20 x 150 MG & 10 x 100MG tablet therapy pack TAKE 3 TABLETS TOGETHER (TWO 150 MG NIRMATRELVIR TABLETS AND ONE 100 MG RITONAVIR TABLET) BY MOUTH TWICE DAILY FOR 5 DAYS. 02/02/2024 08/22/2024 Discontinuedphenazopyridine hydrochloride 200 mg oral tablet (4 sources)Start: 40-39-6459avmx 1 tablet by mouth three times daily as needed for painsulfamethoxazole 800 mg / trimethoprim 160 mg oral tablet (4 sources)Dihydrofolate Reductase Inhibitor Antibacterial, Sulfonamide AntimicrobialStart: 44-99-3164vhai 1 tablet by mouth every twelve hours Completed/Discontinued Medications MedicationDrug Class(es)DatesSig (Normalized)Sig (Original)acetaminophen 325 mg / HYDROcodone bitartrate 5 mg oral tablet (9 sources)Opioid AgonistStart: 02-11-2019 End: 91-97-1104bszm 1 tablet by mouth every four to six hours as needed for pain Hydrocodone-Acetaminophen ([place]) 5-325 mg Tablet Discontinued 1 TAB PO EVERY 4- 6 HOURS as needed for Pain 7 3 0 February 11, 2019 12:00am February 02, 2024 6:33pm Calculus of ureter Calculus of ureterciclopirox 80 mg/ml topical solution (4 sources)Start: 05-22-2024 End: 23-36-1527mtmshklgtf (Penlac) 8 % solution Indications: Toenail fungus Apply topically at bedtime 6 mL 05/22/2024 08/15/2024 Discontinuedfluticasone propionate 0.05 mg/actuat metered dose nasal spray (10 sources)CorticosteroidStart: 02-08-2023 End: 26-75-3892pnry 1-2 spray(s) nasal route once daily as neededfluticasone (Flonase) 50 MCG/ACT nasal spray Indications: Allergic rhinitis, unspecified seasonality, unspecified trigger USE 1 - 2 SPRAYS IN EACH NOSTRIL ONCE A DAY NEEDED 48 mL 1 02/08/2023 05/22/2024 Discontinuednaproxen 500 mg oral tablet (9 sources)Nonsteroidal Anti-inflammatory DrugStart: 02-11-2019 End: 34-14-8233znry 1 tablet by mouth every twelve hours at mealtimeNaproxen (Naprosyn) 500 mg Tablet Discontinued 500 MG PO Q12H 20 0 February 11, 2019 12:00am February 02, 2024 6:33pm administer with food or milk Nirmatrelvir-Ritonavir (10 sources)Start: 02-02-2024 End: 26-00-4462Jbmhniywmeje-Ritonavir (Paxlovid) 300 mg (150 mg x 2)-100 mg tablets,dose pack Discontinued 0 PO .COMPLEX 30 0 February 02, 2024 12:00am February 02, 2024 6:58pm take TWO 150 mg tablets of nirmatrelvir with ONE 100 mg tablet of ritonavir twice daily for 5 days POStart: 02-02-2024 End: 12-89-9526Bkqntosvacdq-Ritonavir (Paxlovid) 300 mg (150 mg x 2)-100 mg tablets,dose pack Discontinued 0 PO .COMPLEX 30 February 02, 2024 12:00am February 10, 2025 12:41pm take TWO 150 mg tablets of nirmatrelvir with ONE 100 mg tablet of ritonavir twice daily for 5 days POStart: 02-02-2024 End: 98-02-3951Ieywclooqkdq-Ritonavir (Paxlovid) 300 mg (150 mg x 2)-100 mg tablets,dose pack Discontinued 0 PO .COMPLEX February 02, 2024 12:00am February 02, 2024 6:58pm take TWO 150 mg tablets of nirmatrelvir with ONE 100 mg tablet of ritonavir twice daily for 5 days POStart: 02-02-2024 End: 98-49-2188Tagaabrqmiwm-Ritonavir (Paxlovid) 300 mg (150 mg x 2)-100 mg tablets,dose pack Discontinued 0 PO .COMPLEX February 02, 2024 12:00am February 10, 2025 12:41pm take TWO 150 mg tablets of nirmatrelvir with ONE 100 mg tablet of ritonavir twice daily for 5 days POondansetron 4 mg disintegrating oral tablet (9 sources)Serotonin-3 Receptor AntagonistStart: 02-11-2019 End: 41-87-4453Vnisjsiznex 4 mg Tablet,Disintegrating Discontinued 4 MG PO every 6 to 8 hours as needed for Jdmbtu11 February 11, 2019 12:00am February 02, 2024 6:33pmtamsulosin hydrochloride 0.4 mg oral capsule (9 sources)alpha-Adrenergic BlockerStart: 02-11-2019 End: 73-41-4071krch 1 capsule by mouth once dailyTamsulosin (Flomax) 0.4 mg capsule Discontinued 0.4 MG PO Daily 7 February 11, 2019 12:00am February 02, 2024 6:32pm Problems Active Problems Problem ClassificationProblemDateDocumented DateEpisodic/ChronicCalculus of urinary tract (17 sources)Ureteric stone; Translations: [Kidney stone]59-84-4939Icytzodw Comment on above:Problem List clean-up per request of Phys. EHR CmteCoagulation and hemorrhagic disorders (20 sources)Thrombocytopenic disorder; Translations: [Thrombocytopenia, unspecified]Onset: 223603-80-6754FzqwxiqRuzvwyrufuzdh symptoms and ill- defined conditions (2 sources)Dysuria; Translations: [Dysuria]Onset: 819118-45-3325Pmsotrwm Immunizations and screening for infectious disease (3 sources)Encounter for screening for human papillomavirus (HPV); Translations: [Contact with or exposure to other viral diseases]Onset: 854809-20-1442 EpisodicMenstrual disorders (20 sources)Excessive and frequent menstruation with regular cycle; Translations: [Menorrhagia]Onset: 30-96-1430BntowfuIrzjdks (2 sources)Onychomycosis of toenails; Translations: [Tinea unguium]05-22-2024 EpisodicOther connective tissue disease (2 sources)Pain in right foot; Translations: [Pain in right foot]09-26-2024 EpisodicOther female genital disorders (2 sources)Pain in female genitalia on intercourse; Translations: [Unspecified dyspareunia]21-07-4602ZefzwwqEcnmd female genital disorders (1 source)Pain in female pelvis; Translations: [Pelvic pain in female]03-12-2025 EpisodicOther liver diseases (5 sources)Liver disease, unspecified; Translations: [LIVER DISEASE UNSPECIFIED] Onset: 34-46-0667GjenkuzFxfup liver diseases (20 sources)Lesion of liver; Translations: [Liver disease, unspecified]Onset: 250803-34-9398TfyvfucQlojh lower respiratory disease (2 sources)Cough; Translations: [Cough, unspecified type]57-01-3123ZkarskvsCqhra nutritional; endocrine; and metabolic disorders (20 sources)Obesity; Translations: [Obesity, unspecified]Onset: 02-08-2023 30-48-8885NmbzqwgGcggu screening for suspected conditions (not mental disorders or infectious disease) (7 sources)Encounter for screening for malignant neoplasm of cervix; Translations: [Encounter for screening for dental disorders]Onset: 08-25-2021 EpisodicOther skin disorders (2 sources)Ingrowing toenail; Translations: [Ingrowing nail]65-33-9018Rogkswfq Other upper respiratory infections (20 sources)Sinusitis; Translations: [Chronic sinusitis, unspecified]Onset: 234083-71-3343QcflvcjOjebj upper respiratory infections (12 sources)Pharyngitis; Translations: [Acute pharyngitis, unspecified] 19-14-2474SczsiqueGwxwomx on above:Problem List clean-up per request of Phys. EHR CmteResidual codes; unclassified (3 sources)History of endometrial ablation; Translations: [Other specified postprocedural states]43-72-3941VubnnkpjYdhc and subcutaneous tissue infections (4 sources)Paronychia of toe of right foot; Translations: [Cellulitis of right toe]07-96-8147EjjelshmIlnqgiwwwgfn (1 source)CONTACT W/AND (SUSP) EXPOS COVID-19; Translations: [CONTACT W/AND (SUSP) EXPOS COVID-19]Onset: 06-17-0205Uxlegtlzdykq (6 sources)Pain in pelvis; Translations: [Pain in pelvis]Onset: 02-08-2023 94-97-6041Armqger tract infections (6 sources)Acute urinary tract infection; Translations: [Urinary tract infection, site not specified]24-74-2353Depndtuq Past or Other Problems Problem ClassificationProblemDateDocumented DateEpisodic/ChronicAbdominal pain (20 sources)Pelvic and perineal pain; Translations: [Unspecified abdominal pain] Onset: 060457-57-2384LijhsjixLscbtj of cervix (20 sources)Cervicovaginal cytology: Low grade squamous intraepithelial lesion; Translations: [Low grade squamous intraepithelial lesion on cytologic smear of cervix (LGSIL)]Onset: 553596-06-3852MvyyrudzCwqnthdcfmiyr and procreative management (1 source)Tubal ligation status; Translations: [TUBAL LIGATION STATUS]Onset: 79-65-2557XpzomqtqQcsraoek of upper limb (16 sources)Fracture of distal end of radius; Translations: [Unspecified fracture of the lower end of unspecified radius, initial encounter for closed fracture]Onset: 295472-62-0899CvrzhkwzXfotys and vomiting (4 sources)Nausea with vomiting, unspecified; Translations: [NAUSEA WITH VOMITING UNSPECIFIED]Onset: 33-14-9469NqeidaksQfoaocpnkgswp gastroenteritis (1 source)Noninfective gastroenteritis and colitis, unspecified; Translations: [NONINFECTIVE GE AND COLITIS UNS]Onset: 86-36-0536YqfhqfcgVzwzzotw codes; unclassified (1 source)Acquired absence of other specified parts of digestive tract; Translations: [ACQ ABSENCE OTH PART DIGESTV TRACT]Onset: 70-48-7979Bfvweqxl Screening and history of mental health and substance abuse codes (1 source)Personal history of nicotine dependence; Translations: [PERSONAL HISTORY OF NICOTINE DEPEND]Onset: 92-58-2950MiahwsdoIskbmtpgggwp (1 source)SRP (chief complaint)Onset: 33-18-8418Gqcae infection (20 sources)Disease caused by 2019-nCoV; Translations: [COVID-19]Onset: 044468-08-7612Nlxslzvd Results Test NameValueInterpretationReference RangeFacilityALL CBC WITH AUTO DIFFon 03-40-6437WULVBQKHK ABSOLUTE AUTO0.0NOMS HealthcareBasophils/100 WBC (Bld)0.5 % 0.2 - 2.0 %NOMHermann Area District HospitalEosinophils/100 WBC (Bld)1.9 %0.9 - 7.0 %[facility]red HospitalErythrocyte distribution width (RBC) [Ratio]12.5 %11.0 - 15.0 %[facility]red HospitalHematocrit (Bld) [Volume fraction]41.4 %36.0 - 48.0 %[facility] Hemoglobin (Bld) [Mass/Vol]13.6 g/dL12.0 - 16.0 g/dLNOMercy McCune-Brooks HospitalIMMATURE GRANULOCYTES ABS AUTO0.01NOMS HealthcareImmature granulocytes/100 WBC (Bld)0.2 % 0.0 - 0.5 %[facility] HospitalLYMPHOCYTES ABSOLUTE AUTO1.7[facility] Lymphocytes/100 WBC (Bld)29.9 %20.5 - 60.0 %[facility]ullivanH (RBC) [Entitic mass]29.3 pg26.7 - 34.0 pgNOMS [facility]orgetown Behavioral HospitalHC (RBC) [Mass/Vol]32.9 g/dL29.9 - 35.2 g/dLNOMS HealthcareMCV (RBC) [Entitic vol]89.2 fL81.0 - 99.0 fLNOMS HealthcareMONOCYTES ABSOLUTE AUTO0.4NOMS HealthcareMonocytes/100 WBC (Bld)6.9 % 1.7 - 12.0 %NOMS HealthcareNEUTROPHILS ABSOLUTE AUTO3.5[facility] Neutrophils/100 WBC (Bld)60.6 %43.0 - 75.0 %NOMS HealthcarePlatelet mean volume (Bld) [Entitic vol]11.0 fL9.5 - 13.5 fLNOMS HealthcareTBH EO #0.1[facility] TBH LFE661TQRC HealthcareTBH RBC4.64NOMS HealthcareTBH WBC5.7[facility] CLINISYNCNOMS HealthcareIGP,APTIMA HPV,AGE GDLNon 21-04-6579AHN GDLN ACOG TESTINGNote.[facility] HealthcareComment on above:TESTS RESULT FLAG UNITS REF RANGE LAB Clinician Provided Cytology Information Source.............Cervix;Endocervix No. of containers..01 ThinPrep Vial Age Algo ACOG Paula... 30-65 01 FLAG LEGEND: L-Low Normal,H-High Normal,LL-Alert Low,HH-Alert High <-Panic Low,>-Panic High,A-Abnormal,AA-Critical Abnormal Performed at: 01 =G [facility] [address], [place] [address] Wendy Kumar MD, HPV APTIMAPositiveAbnormalNegativeNOMS HealthcareComment on above:This nucleic acid amplification test detects fourteen high- risk HPV types (16,18,31,33,35,39,45,51,52,56,58,59,66,68) without differentiation. HPV GENOTYPE 16NegativeNegativeNOMS HealthcareHPV GENOTYPE 18,45PositiveAbnormal NegativeNOMS HealthcareComment on above:Performed at: =[address] [id number] Label Printer: Wendy uKmar MD, Phone: [phone] Performed at: [address] [id number] Label Printer: Wendy Kumar MD, Phone: [phone] IGP, APTIMA HPV, RFX 16/18,45Note.NOMS HealthcareComment on above:TESTS RESULT FLAG UNITS REF RANGE LAB DIAGNOSIS: 02 NEGATIVE FOR INTRAEPITHELIAL LESION OR MALIGNANCY. REACTIVE CELLULAR CHANGES AND/OR REPAIR ARE PRESENT. Specimen adequacy: 02 Satisfactory for evaluation. Endocervical and/or squamous metaplastic cells (endocervical component) are present. Performed by: 02 Radha Lake, Taxi Cab Driver (ASCP) Electronically si... 02 Pedro Padilla MD, [...] ThinPrep(R) pap test was interpreted using the JumpSellerRMakani Power(TM) Cervical Algorithm whole slide imaging system. HPV Genotype Reflex Note 02 Criteria met, see HPV Genotype results. FLAG LEGEND: L-Low Normal,H-High Normal,LL-Alert Low,HH-Alert High <-Panic Low,>-Panic High,A-Abnormal,AA-Critical Abnormal Performed at: [address] [address] Wendy Kumar MD, Interpretation and review of laboratory resultsAbMunson Healthcare [facility] BRUSH-SPATULA CERVIX ENDOCERVIX CLINISYNCKindred HospitalHCG ( test) Ql (U)on 93-79-5643Gtmcwgvgsthjkn and review of laboratory resultsNoHahnemann University HospitalPreg Test, UrNegative NegativeNOFroedtert HospitalLon 03-12-2025L Specimen: [id number] Received: 03/13/25 Status: LUCIAN Barreto Num: [id number] Spec Type: Surgical Subm Dr: Jaxson Gonzales Tissues: A Endometrium - Biopsy (ENDO BX) Procedures: HE/2, Gross/Micro L4 Age/ Patient Sex Location Account Attending Physician Farzaneh Marvin 34/F LABELL [id number] Jaxson Gonzales SPEC NUM: [id number] RECD: 03/13/25 STATUS: LUCIAN BARRETO NUM: [id number] PERFECTO: 03/12/[address] [facility] [address]: Jaxson Gonzales ENTERED: 03/13/[address] [facility] [address]: Clinton,Lab SPEC TYPE: Surgical DEPT: SUN WILSON ENTERED BY: [id number] RECV BY: [id number] ORDERED: HE/2, Gross/Micro L4 ORDERED: HE/2, Gross/Micro [...] submitted in a single cassette. (1, ns, [id number] A) Microscopic Description Microscopic examination is performed. CPT Codes 86507 Specimen: [id number] Received: 03/13/25 Status: LUCIAN Alisa Num: [id number] Spec Type: Surgical Subm Dr: Jaxson Gonzales Tissues: A Endometrium - Biopsy (ENDO BX) Procedures: Chad JULIO/Samson L4 Patient: Farzaneh Marvin [id number] (Continued) Signed (signature on file) Tripp Gu MD 03/14/25 1151Normal [facility] Physician GroupLaboratory - Chemistry and Chemistry - challenge Ordered By: Tania Dove on 28-91-7337Gjkqnryov Ql (U)Kindred HealthcareGlucose (U) [Mass/Vol]NegativeOhiohealth Marion General HospitalKetones Ql (U)NegativeOhiohealth Marion General HospitalpH (U)6.0 [pH] [facility] Hospitalpecific gravity (U) [Rel density]>=1.030 [facility] HospitalUrobilinogen (U) [Mass/Vol]0.2 mg/dLOhiohealth Marion General HospitalLaboratory - Specimen informationOrdered By: Tania Dove on 41-40-4189Uzhohxacag (U)cloudyOhiohealth Marion General HospitalColor (U)yellowOhiohealth Marion General HospitalLaboratory - UrinalysisOrdered By: Tania Dove on 10-44-3645Olkckqhxs esterase Test strip Ql (U)smallOhiohealth Marion General HospitalNitrite Ql (U)[facility] Protein Ql (U)100Ohio[facility] General HospitalNo Panel InformationOrdered By: Tania Dove on 82-66-0835Vwmvu Occult Bloodtrace-intactOhiohealth Marion General HospitalUrine Cultureon 84-85-5848Ubdcxqnk identified Cx Nom (U)ORGANISM: Escherichia coli (MDRO) (O:ESCCOLMDRO) [place] Count >100,000 * This is a corrected [...] RESISTANT TO ALL B-LACTAM DRUGS. PERFORMED BY: [facility] [address] [place] [address] PATHOLOGIST LOGISTICS OPERATIONS DIRECTOR DARIN CADENA M.D.NormalBay Pines Va Healthcare System Physician GroupComment on above: Performed By: #### CUU #### [facility] [address] Hernandez StreetUrine cultureOrdered By: Tania Dove on 02-10-2025 Bacteria identified Cx Nom (U)Escherichia coli (MDRO)AbnormalOhiohealth Marion General HospitalUPPER RESPIRATORY CULTUREon 01-57-6410WDQVU RESPIRATORY CULTURE Upper Respiratory Culture NOMS HealthcareUPPER RESPIRATORY CULTURERoutine respiratory floraNOMercy McCune-Brooks Hospital UPPER RESPIRATORY CULTUREPerformed at: - [facility] CenterUPPER RESPIRATORY VYLNDSQ[address] [place], [place] [id number] Health RESPIRATORY CULTURELab Director: Anatoliy Argueta PhD, Phone: [phone] HospitalCLINISYNTUFTS MEDICAL CENTER HealthcareLaboratory - Microbiology and Antimicrobial susceptibilityon 35-22-3646XYKG-CoV-2 (COVID-19) RNA DANIELLE+probe Ql (Unsp spec) NegativeNOOK HealthcareNo Panel Informationon 72-15-0355UES ANegativeNOMS HealthcareFLU BNegativeNOOK HealthcareInterpretation and review of laboratory resultsNormalChildren's [facility] HealthcarePathology study report document Ordered By: Tripp Gu on 56-05-6316Yvqmiwwys studyOhiohealth Marion General Hospital Other Lon 09-05-2024L Specimen: [id number] Received: 09/06/24 Status: LUCIAN Barreto Num: [id number] Spec Type: Surgical Subm Dr: Jaxson Gonzales Tissues: A Endocervix - Curettings (ENDOCERVICAL CURETTINGS) Procedures: HE/2, Gross/Micro L4, Ki-67, CINtec p16 Age/ Patient Sex Location Account Attending Physician Farzaneh Marvin 33/F LABELL [id number] Jaxson Gonzales SPEC NUM: [id number] RECD: 09/06/24 STATUS: LUCIAN BARRETO NUM: [id number] PERFECTO: 09/05/[address] [facility] [address]: Jaxson Gonzales ENTERED: 09/06/[address] [facility] [address]: [place],Lab SPEC TYPE: Surgical DEPT: [facility] ENTERED BY: [id number] RECV BY: [id number] ORDERED: HE/2, Gross/Micro L4, Ki-67, CINtec p16 [...] submitted in a single cassette. (1, ns, [id number] A) GREG Specimen: [id number] Received: 09/06/24 Status: LUCIAN Jaureguijudie Num: [id number] Spec Type: Surgical Subm Dr: Jaxson Gonzales Tissues: A Endocervix - Curettings (ENDOCERVICAL CURETTINGS) Procedures: HE/2, Gross/Micro L4, Ki-67, CINtec p16 Patient: Farzaneh Marvin [id number] (Continued) Specimen: [id number] Received: 09/06/24 (Continued) Signed (signature on file) Tripp Gu MD 09/08/24 1050 Specimen: [id number] Received: 09/06/24 Status: LUCIAN Barreto Num: [id number] Spec Type: Surgical Subm Dr: Jaxson Gonzales Tissues: A Endocervix - Curettings (ENDOCERVICAL CURETTINGS) Procedures: HE/2, Gross/Micro L4, Ki-67, CINtec p16 Patient: Farzaneh Marvin [id number] (Continued) Specimen: [id number] Received: 09/06/24 (Continued) Microscopic Description Microscopic examination is performed. CPT Codes 28593, 10847, 87771 Specimen: [id number] Received: 09/06/24 Status: LUCIAN Barreto Num: [id number] Spec Type: Surgical Subm Dr: Jaxson Gonzales Tissues: A Endocervix - Curettings (ENDOCERVICAL CURETTINGS) Procedures: HE/2, Gross/Micro L4, Ki-67, CINtec p16 Patient: Farzaneh Marvin [id number] (Continued) Signed (signature on file) Tripp Gu MD 09/08/24 1050Normal [facility] Physician GroupIGP,APTIMA HPV,AGE GDLNon 76-53-8048[facility] ACOG TESTINGNote.NOMS HealthcareComment on above:TESTS RESULT FLAG UNITS REF RANGE LAB Clinician Provided Cytology Information Source.............Cervix;Endocervix No. of containers..01 ThinPrep Vial Age Maximino [place] Paula... FLAG LEGEND: L-Low Normal,H-High Normal,LL-Alert Low,HH-Alert High <-Panic Low,>-Panic High,A-Abnormal,AA-Critical Abnormal Performed at: 01 =G [facility] [place] [address] Wendy Kumar MD, HPV APTIMAPositiveAbnormalNegativeNOMS HealthcareComment on above:This nucleic acid amplification test detects fourteen high- risk HPV types (16,18,31,33,35,39,45,51,52,56,58,59,66,68) without differentiation. Performed at: = - [facility], [place] [id number] Label Printer: Wendy Kumar MD, Phone: [phone] Performed at: - [facility], [place] [id number] Label Printer: Wendy Kumar MD, Phone: [phone] IGP, APTIMA HPV, RFX 16/18,45NoteAbnormal.NOMS HealthcareComment on above:TESTS RESULT FLAG UNITS REF RANGE LAB DIAGNOSIS: [A] 02 EPITHELIAL CELL ABNORMALITY. LOW GRADE SQUAMOUS INTRAEPITHELIAL LESION (LSIL). Recommendation: [A] 02 Suggest follow up as clinically appropriate. Specimen adequacy: 02 Satisfactory for evaluation. Endocervical and/or squamous metaplastic cells (endocervical component) are present. Performed by: 03 No Deshpande, Teletype Or Varitype Keyboard Operator (ASCP) Electronically si... 02 Wedny Kumar MD, Pathologist . 02 Pathologist ICD10: [...] High,A-Abnormal,AA-Critical Abnormal Performed at: 02 [facility] [place] [address] [place] [address] Wendy Kumar MD, 03 KWCYT [facility] [address] [place] [address] Juaquin Calderon MD, Interpretation and review of laboratory resultsAbnormalNOMS Healthcare BRUSH-SPATULA CERVIX ENDOCERVIX CLINISYNCNOMS HealthcareHCG ( test) Ql (U)on 92-17-0836Qlmmphwqdbnqty and review of laboratory resultsNormalNOMS HealthcarePreg Test, UrNegative NegativeNOMS HealthcareNOMS HealthcareBasic Metabolic Brand w/Rfx A1Con 08-14-2024 Anion gap [Moles/Vol]10.7 mmol/LNormal6.0-15.0The [facility] Comment on above:Performed By: #### GABI LIPID, EMP BMP #### [facility] [address] [place] [address] USACalcium [Mass/Vol]9.8 mg/dLNormal8.6-10.3The [facility] Physician GroupComment on above:Performed By: #### EBS LIPID, EMP BMP #### [facility] [address] [place] [address] USAChloride [Moles/Vol]103 mmol/PUctpuj44-147Pwj [facility] Physician GroupComment on above:Performed By: #### EBS LIPID, EMP BMP #### [facility] [address] [place] [address] USACO2 [Moles/Vol]29.5 mmol/XHmysxb74.0-31.0The [facility] Physician GroupComment on above:Performed By: #### EBS LIPID, EMP BMP #### [facility] [address] [place] [id number] USACreatinine [Mass/Vol]0.73 mg/dLNormal0.60-1.20The [facility] Physician GroupComment on above:Performed By: #### EBS LIPID, EMP BMP #### [facility] [address] [place] [id number] USAGFR/1.73 sq M.predicted MDRD (S/P/Bld) [Vol rate/Area] mL/min/{1.73_m2}NormalThe [facility]ly [facility] Physician GroupComment on above:Performed By: #### EBS LIPID, EMP BMP #### [facility] [address] [place] [phone] USAGlucose [Mass/Vol]85 mg/jISbmfqh82-172Aud [facility] Physician GroupComment on above:Performed By: #### EBS LIPID, EMP BMP #### [facility] [address] [place] [address] USAPotassium [Moles/Vol]4.2 mmol/LNormal3.5-5.1The [facility] Physician GroupComment on above:Performed By: #### EBS LIPID, EMP BMP #### [facility] [address] [place] [address] USASodium [Moles/Vol]139 mmol/DGartli711-353Epe [facility] Physician GroupComment on above:Performed By: #### EBS LIPID, EMP BMP #### [facility] [address] [place] [phone] USAUrea nitrogen [Mass/Vol]10 mg/dLNormal7-25The [facility] Physician GroupComment on above:Performed By: #### EBS LIPID, EMP BMP #### [facility] [address] [place] [phone] USACalcium [Mass/volume] in Serum or PlasmaOrdered By: Wes John on 81-54-2077Sprelyc [Mass/Vol]Calcium [Mass/volume] in Serum or Plasma 8.6-10.3FWadsworth-Rittman HospitalCarbon dioxide, total [Moles/volume] in Serum or PlasmaOrdered By: Wes John on 32-91-0904UJ6 [Moles/Vol]Carbon dioxide, total [Moles/volume] in Serum or Wtkezf54.0-31.0[facility] HospitalChloride [Moles/volume] in Serum or PlasmaOrdered By: Wes John on 95-25-6468Pptyllyy [Moles/Vol]Chloride [Moles/volume] in Serum or Ilaymn43-967WybipugzhOhiohealth Marion General HospitalCholesterol [Mass/volume] in Serum or PlasmaOrdered By: Wes John on 60-06-2254Pnsikwhngkq [Mass/Vol] Cholesterol [Mass/volume] in Serum or Jacsfx593-410PzsplsggvOhiohealth Marion General HospitalComment on above:Chol less than 200 mg/dl low riskChol 201-239 mg/dl borderline riskChol 240 mg/dl and greater high riskCholesterol in HDL [Mass/volume] in Serum or PlasmaOrdered By: Wes John on 08-14-2024 Cholesterol in HDL [Mass/Vol]Serum or plasma high density lipoprotein (HDL) cholesterol sayysfflpsh72-22FsoqyhdzyOhiohealth Marion General HospitalComment on above: HDL CHOL ATP-III CLASSIFICATION Cardiovascular RiskHDL > or equal to 60 mg/dL LOWHDL < 40 mg/dL HIGHCholesterol in LDL Calc [Mass/Vol]Ordered By: Wes John on 51-50-4403Zhglthbffrg in LDL [Mass/Vol]Cholesterol in LDL [Mass/volume] in Serum or Plasma by calculationHigh0-100Ohio[facility] General HospitalComment on above:LDL ATP III CLASSIFICATIONLDL less than 100 mg/dL OptimalLDL 100-129 mg/dL Near or above cwwapmmBBB854-435 mg/dL Borderline highLDL 160-189 mg/dL HighLDL greater than 189 mg/dL Very highCholesterol in VLDL Calc [Mass/Vol]Ordered By: Wes John on 52-65-9899Mbtlydrdgry in VLDL [Mass/Vol]Cholesterol in VLDL [Mass/volume] in Serum or Plasma by calculation [facility] HospitalCreatinine [Mass/volume] in Serum or Plasma Ordered By: Wes John on 10-14-3879Rorqgireuh [Mass/Vol]Creatinine [Mass/volume] in Serum or Plasma0.60-1.20[facility] Glucose [Mass/volume] in Serum or PlasmaOrdered By: Wes John on 08-14-2024 Glucose [Mass/Vol]Glucose [Mass/volume] in Serum or Ldjfgd24-052XdipaldavOhiohealth Marion General HospitalLipid Profileon 84-38-4719Fhalqoahnqt [Mass/Vol]194 mg/dL Kbfjsk564-907Tvq [facility] Physician GroupComment on above:Result Comment: Chol less than 200 mg/dl low risk Chol 201-239 mg/dl borderline risk Chol 240 mg/dl and greater high riskPerformed By: #### EBS LIPID, EMP BMP #### [facility] [address] [place] [address] USACholesterol in HDL [Mass/Vol]54 mg/hHMwagde20-51Wla [facility] Physician GroupComment on above:Result Comment: HDL CHOL ATP-III CLASSIFICATION Cardiovascular Risk HDL > or equal to 60 mg/dL LOW HDL < 40 mg/dL HIGHPerformed By: #### EBS LIPID, EMP BMP #### [facility] [address] [place] [address] USACholesterol.total/Cholesterol in HDL [Mass ratio]3.6 {ratio}Normal<5.0The [facility] Physician GroupComment on above:Result Comment: PERFORMED BY: [place] [address] PATHOLOGIST LOGISTICS OPERATIONS DIRECTOR CHARITY MENDIETA M.D.Performed By: #### EBS LIPID, EMP BMP #### [facility] [address] [place] [address] USALDL Cholesterol,Ucfpikforg386 mg/dLHigh0-100The [facility] Physician GroupComment on above:Result Comment: LDL ATP III CLASSIFICATION LDL less than 100 mg/dL Optimal LDL 100-129 mg/dL Near or above optimal LDL 130-159 mg/dL Borderline high LDL 160-189 mg/dL High LDL greater than 189 mg/dL Very highPerformed By: #### EBS LIPID, EMP BMP #### [facility] [address] [place] [address] USATriglyceride w/Gfbfgh913 mg/dLNormal0-149The [facility] Physician GroupComment on above:Result Comment: TRIG ATP III CLASSIFICATION TRIG less than 150 mg/dL Normal TRIG 150-199 mg/dL Borderline high TRIG 200-500 mg/dL High TRIG greater than 500 mg/dL Very high Standard traceable to the Center for Disease Conrtrol and Prevention (CDC) test method.Performed By: #### EBS LIPID, EMP BMP #### [facility] [address] [place] [address] USAVLDL TIROFYXYDGO47 mg/dLNoAtrium Health Physician GroupComment on above:Performed By: #### EBS LIPID, EMP BMP #### [facility] [address] [place] [address] USANo Panel InformationOrdered By: Wes John on 46-50-0762Bfmrgyufr GFR (CKD-EPI)> 60.0 mL/MinOhiohealth Marion General Hospital Pharmacy Creatinine Clearance (ChemN/[facility] Medical CenterPotassium [Moles/volume] in Serum or PlasmaOrdered By: Wes John on 08-14-2024 Potassium [Moles/Vol]Potassium [Moles/volume] in Serum or Plasma3.5-5.1FDoctors Hospitalerum or plasma anion gap determinationOrdered By: Wes John on 92-72-8039Wyxvw gap [Moles/Vol]Serum or plasma anion gap determination6.0-15.0[facility] Hospitalerum or plasma total cholesterol/high density lipoprotein (HDL) cholesterol mass ratOrdered By: Wes John on 08-36-4510Qzjlrzqnela.total/Cholesterol in HDL [Mass ratio] Serum or plasma total cholesterol/high density lipoprotein (HDL) cholesterol mass rat<5.0[facility] Hospitalodium [Moles/volume] in Serum or PlasmaOrdered By: Wes John on 21-68-5423Pytqyw [Moles/Vol]Sodium [Moles/volume] in Serum or Brsajz420-316GlytagrflOhiohealth Marion General Hospital Triglyceride [Mass/volume] in Serum or PlasmaOrdered By: Wes John on 67-58-1038Mqstmdqmxzbz [Mass/Vol]Triglyceride [Mass/volume] in Serum or Plasma 0-149Ohio[facility] HospitalComment on above:TRIG ATP III CLASSIFICATIONTRIG less than 150 mg/dL NormalTRIG 150-199 mg/dL Borderline highTRIG 200-500 mg/dL High TRIG greater than 500 mg/dL Very highStandard traceable to the Center for Disease Conrtrol and Prevention (CDC) test method. Urea nitrogen [Mass/volume] in Serum or PlasmaOrdered By: Wes John on 27-72-8651Lvmw nitrogen [Mass/Vol]Urea nitrogen [Mass/volume] in Serum or Plasma 12-15[facility] HospitalNo Panel InformationOrdered By: Hilaria Shell on 44-62-8020Pygot Strep (POC)[facility] HospitalCBC AUTO DIFFon 35-50-1185QYAT #0.0 103/ulNormal0.0-0.1The [facility] HospitalComment on above: Performed By: #### CBC #### [facility] [address] [place] [address] Dr. Cain Vargassophils/100 WBC (Bld)0.4 %Normal0.2-2.0[facility] Comment on above:Performed By: #### CBC #### [facility] [address] [place] [address] [address] Cain Jaramillo #0.1 103/ulNormal0.0-0.7The [facility] Memorial HospitalComment on above: Performed By: #### CBC #### [facility] [address] [place] [address] Dr. Cain Ramseyosinophils/100 WBC (Bld)2.0 %Normal0.9-7.0[facility] Comment on above:Performed By: #### CBC #### [facility] [address] [place] [address] [address] Cain Ramseyrythrocyte distribution width (RBC) [Ratio]12.8 %Msemgh23.0-15.0 [facility] HospitalComment on above:Performed By: #### CBC #### [facility] [address] [place] [address] Dr. Cain Pearlatocrit (Bld) [Volume fraction]40.6 %Keylkm88.0-48.0[facility] HospitalComment on above:Performed By: #### CBC #### [facility] [address] [place] [address] Dr. Yilan ChangHemoglobin (Bld) [Mass/Vol]14.1 g/bNNvysep79.0-16.0The [facility] HospitalComment on above:Performed By: #### CBC #### [facility] [address] [place] [address] Dr. Cain Lal #0.01 10e3/ulNormal0.00-0.03The [facility] HospitalComment on above:Performed By: #### CBC #### [facility] [address] [place] [address] Dr. Cain Lal %0.2 %Normal0.0-0.5The [facility] HospitalComment on above: Performed By: #### CBC #### [facility] [address] [place] [address] Dr. Cain Tafoya #1.1 103/ulCritically low1.2-3.8The [facility] Comment on above:Performed By: #### CBC #### [facility] [address] [place] [address] Dr. Cain Justicehocytes/100 WBC (Bld)24.6 %Wtfjbp32.5-60.0The [facility] HospitalComment on above:Performed By: #### CBC #### [facility] [address] [place] [address] Dr. Cain MaciasUAL DIFF REQNONormalThe Community Memorial HospitalComment on above: Performed By: #### CBC #### [facility] [address] [place] [address] Dr. Cain Knox (RBC) [Entitic mass]30.1 zqNgaymb99.7-34.0The [facility] HospitalComment on above:Performed By: #### CBC #### [facility] [address] [place] [address] Dr. Cain Knox (RBC) [Mass/Vol]34.7 g/pZFkaacv81.9-35.2The [facility] HospitalComment on above:Performed By: #### CBC #### [facility] [address] [place] [address] Dr. Cain KnoxV (RBC) [Entitic vol]86.8 mKHgcohg60.0-99.0The [facility] HospitalComment on above:Performed By: #### CBC #### [facility] [address] [place] [address] Dr. Cain Obrien #0.3 103/ulNormal0.3-0.8The [facility] HospitalComment on above:Performed By: #### CBC #### [facility] [address] [place] [address] Dr. Cain Davisocytes/100 WBC (Bld)6.5 %Normal1.7-12.0The [facility] Comment on above:Performed By: #### CBC #### [facility] [address] [place] [address] Dr. Cain Topete #3.1 103/ulNormal1.4-6.5The [facility] HospitalComment on above:Performed By: #### CBC #### [facility] [address] [place] [address] Dr. Cain Shenutrophils/100 WBC (Bld)66.3 %Xmyytv57.0-75.0The [facility] HospitalComment on above:Performed By: #### CBC #### [facility] [address] [place] [address] Dr. Cain Doranteslet mean volume (Bld) [Entitic vol]10.9 fLNormal9.5-13.5The [facility] HospitalComment on above:Performed By: #### CBC #### [facility] [address] [place] [address] Dr. Cain McwilliamsPLT141 103/ulCritically uar183-757Oxa Community Memorial HospitalComment on above:Performed By: #### CBC #### [facility] [address] [place] [address] Dr. Cain McwilliamsRBC4.68 106/ulNormal4.20-5.40The [facility] HospitalComment on above:Performed By: #### CBC #### [facility] [address] [place] [address] Dr. Cian McwilliamsWBC4.6 103/ulNormal4.0-11.0The [facility] on above: Performed By: #### CBC #### [facility] [address] [place] [address] Dr. Cain McwilliamsFREE T4on 91-69-9113Wxak T4 [Mass/Vol]0.99 ng/dLNormal0.76-1.46 The [facility] on above:Performed By: #### FT4 #### [facility] [address] [place] [address] Dr. Cain McwilliamsGLYCOHEMOGLOBIN A1Con 54-59-1935NFI RECOMMENDATIONSEE BELOWTrinity Health SystemCombronson south haven hospital on above:Result Comment: ADA RECOMMENDED LIMIT 4.0 - 6.0 ADA THERAPEUTIC TARGET < 7.0 ACTION SUGGESTED > 7.0Performed By: #### A1C #### [facility] [address] [place] [address] Dr. Cain McwilliamsGlucose [Mass/Vol]97 mg/dLNoUK HealthcareCombronson south haven hospital on above:Performed By: #### A1C #### [facility] [address] [place] [address] Dr. Cain McwilliamsHbA1c (Bld) [Mass fraction]5.0 %Normal4.5-6.2The [facility] on above:Performed By: #### A1C #### [facility] [address] [place] [address] Dr. Cain McwilliamsPROTIMEon 83-29-5475SON Coag (PPP) [Relative time]0.95 {INR} NormalGalion Community Hospital on above:Performed By: #### CBC #### [facility] [address] [place] [address] Dr. Cain Silva GUIDELINESSEE [facility] Hospital - CantonComment on above:Result Comment: DESIRED INR: 2.0 - 3.0 CONDITIONS NOT LISTED BELOW 2.5 - 3.5 FOR PROSTHETIC HEART VALVE REPLACEMENT 2.5 - 3.5 RECURRENT THROMBOSIS Performed By: #### CBC #### [facility] [address] [place] [address] [address] Cain McwilliamsPT Coag (PPP) [Time]10.1 sNormal9.0-11.6The [facility] Comment on above:Performed By: #### CBC #### [facility] [address] [place] [address] Dr. Cain Bahena 79-76-1783pQKB Coag (Bld) [Time]29.4 hMfwvjv17.3-36.2The [facility] HospitalComment on above:Performed By: #### CBC #### [facility] [address] [place] [address] Dr. Cain Smith 38-10-5106MLX0.596 uIU/mLNormal0.358-3.740The [facility] Memorial HospitalComment on above:Performed By: #### TSH #### [facility] [address] [place] [address] Dr. Cain McwilliamsUS PELVIS AND TRANSVAGon 81-51-6471PV PELVIS AND TRANSVAG EXAMINATION: US PELVIS AND [...] Electronically authenticated by: MALICK ESPINOZA Date: 2022-06-22 16:47NoOur [facility] of [facility] AUTO DIFFon 34-82-2549LJVQ #0.0 103/ulNormal0.0-0.1The [facility] HospitalComment on above:Performed By: #### CBC #### [facility] [address] [place] [address] [address] Cain McwilliamsBasophils/100 WBC (Bld)0.4 %Normal0.2-2.0The [facility] on above:Performed By: #### CBC #### [facility] [address] [place] [address] Dr. Cani Jaramillo #0.0 103/ulNormal0.0-0.7The [facility] HospitalComment on above: Performed By: #### CBC #### [facility] [address] [place] [address] Dr. Cain Ramseyosinophils/100 WBC (Bld)0.8 %Critically low0.9-7.0The [facility]ement on above:Performed By: #### CBC #### [facility] [address] [place] [address] Dr. Cain Ramseyrythrocyte distribution width (RBC) [Ratio]12.8 %Yqfymu72.0-15.0 The [facility] Memorial HospitalComment on above:Performed By: #### CBC #### [facility] [address] [place] [address] Dr. Cain McwilliamsHematocrit (Bld) [Volume fraction]41.6 %Gwsvjd91.0-48.0The [facility] HospitalComment on above:Performed By: #### CBC #### [facility] [address] [place] [address] Dr. Cain McwilliamsHemoglobin (Bld) [Mass/Vol]13.8 g/gKKedztx29.0-16.0The [facility] HospitalComment on above:Performed By: #### CBC #### [facility] [address] [place] [address] Dr. Cain Lal #0.01 10e3/ulNormal0.00-0.03The [facility] HospitalComment on above:Performed By: #### CBC #### [facility] [address] [place] [address] Dr. Cain Lal %0.2 %Normal0.0-0.5The [facility] HospitalComment on above: Performed By: #### CBC #### [facility] [address] [place] [address] Dr. Cain Tafoya #1.3 103/ulNormal1.2-3.8The [facility] HospitalComment on above:Performed By: #### CBC #### [facility] [address] [place] [address] Dr. Cain Justicehocytes/100 WBC (Bld)27.1 %Qdplex88.5-60.0The [facility] HospitalComment on above:Performed By: #### CBC #### [facility] [address] [place] [address] Dr. Cain Singer DIFF REQNONormalThe Community Memorial HospitalComment on above: Performed By: #### CBC #### [facility] [address] [place] [address] Dr. Cain Cooper (RBC) [Entitic mass]30.5 nnRbxhab14.7-34.0The [facility] HospitalComment on above:Performed By: #### CBC #### [facility] [address] [place] [address] Dr. Cain Knox (RBC) [Mass/Vol]33.2 g/zUDiifkj89.9-35.2The [facility] HospitalComment on above:Performed By: #### CBC #### [facility] [address] [place] [address] Dr. Cain Gomez (RBC) [Entitic vol]91.8 qSTdbkty46.0-99.0The [facility] HospitalComment on above:Performed By: #### CBC #### [facility] [address] [place] [address] Dr. Cain Obrien #0.3 103/ulNormal0.3-0.8The [facility] HospitalComment on above:Performed By: #### CBC #### [facility] [address] [place] [address] Dr. Yilan ChangMonocytes/100 WBC (Bld)6.3 %Normal1.7-12.0The [facility] Comment on above:Performed By: #### CBC #### [facility] [address] [place] [address] Dr. Cain Topete #3.1 103/ulNormal1.4-6.5The [facility] HospitalComment on above:Performed By: #### CBC #### [facility] [address] [place] [address] Dr. aCin Shenutrophils/100 WBC (Bld)65.2 %Yikxlm90.0-75.0The [facility] HospitalComment on above:Performed By: #### CBC #### [facility] [address] [place] [address] Dr. Cain Valentine mean volume (Bld) [Entitic vol]11.3 fLNormal9.5-13.5The [facility] Memorial HospitalComment on above:Performed By: #### CBC #### [facility] [address] [place] [address] Dr. Cain ChirinosT149 103/ulCritically kdq364-414Fkr [facility] HospitalComment on above:Performed By: #### CBC #### [facility] [address] [place] [address] Dr. Cain ChristyC4.53 106/ulNormal4.20-5.40The [facility] HospitalComment on above:Performed By: #### CBC #### [facility] [address] [place] [address] Dr. Cain McwilliamsWBC4.8 103/ulNormal4.0-11.0The [facility] HospitalComment on above: Performed By: #### CBC #### [facility] [address] [place] [address] Dr. Cain Cui QUANT HCGon 17-90-7832ODB QUANT<1NormalThe [facility] Comment on above:Performed By: #### CBC #### [facility] [address] [place] [address] Dr. Cain Benoit RANGESEE BELOWShelby Memorial Hospital on above: Result Comment: 5-50 0-1 WEEK 40-300 1-2 WEEKS 100-1,000 2-3 WEEKS 500-6,000 3-4 WEEKS 5,000-200,000 1-2 MONTHS 10,000-100,000 2-3 MONTHS 3,000-50,000 2ND TRIMESTER 1,000-50,000 3RD TRIMESTERPerformed By: #### CBC #### [facility] [address] [place] [address] Dr. Cain Mckeon ACOG PANEL 2: 30 to 65on 09-02-2021..NormalBethesda North HospitalCombronson south haven hospital on above:Result Comment: Performed at: WBPerformed By: #### CBC #### [facility] [address] [place] [address] Dr. Cain Reese Gdln ACOG Qwahxpk43-02MyagerJwfAdena Pike Medical CenterComment on above:Performed By: #### CBC #### [facility] [address] [place] [address] Dr. Cain McwilliamsDIAGNOSIS:CommentShelby Memorial Hospital on above: Result Comment: NEGATIVE FOR INTRAEPITHELIAL LESION OR MALIGNANCY. THIS SPECIMEN WAS RESCREENED PART OF OUR STEAM SHOVEL OPERATING ENGINEER PROGRAM. Performed at: WBPerformed By: #### CBC #### [place] [address] Dr[address] Cain McwilliamsHPV AptimaNegativeNormalNegativeGalion Community Hospital on above:Result Comment: This nucleic acid amplification test detects fourteen high-risk HPV types (16,18,31,33,35,39,45,51,52,56,58,59,66,68) without differentiation. Performed at: =GPerformed By: #### CBC #### [facility] [address] [place] [address] Dr. Cain McwilliamsMethodology:CommentShelby Memorial Hospital on above: Result Comment: This liquid based ThinPrep(R) pap test was screened with the use of an image guided system. Performed at: WBPerformed By: #### CBC #### [facility] [address] [place] [address] Dr. Cain McwilliamsNote:[facility] on above:Result Comment: The Pap smear is a screening test designed to aid in the detection of premalignant and malignant conditions of the uterine cervix. It is not a diagnostic procedure and should not be used as the sole means of detecting cervical cancer. Both false-positive and false-negative reports do occur. . Performed at: WBPerformed By: #### CBC #### [facility] [address] [place] [address] Dr. Cain McwilliamsPerformed by:[facility] on above: Result Comment: Sasha Odonnell, Teletype Or Varitype Keyboard Operator (ASCP) Performed at: WBPerformed By: #### CBC #### [facility] [address] [place] [address] Dr. Cain McwilliamsQC reviewed by:[facility] on above:Result Comment: Shu Silver, Supervisory Teletype Or Varitype Keyboard Operator (ASCP) Performed at: WBPerformed By: #### CBC #### [facility] [address] [place] [address] Dr. Cain McwilliamsSpecimen adequacy:[facility] on above:Result Comment: Satisfactory for evaluation. Endocervical and/or squamous metaplastic cells (endocervical component) are present. Performed at: WBPerformed By: #### CBC #### [facility] [address] [place] [address] Dr. Cain McwilliamsUS PELVIS AND TRANSVAGon [id number] PELVIS AND TRANSVAG EXAMINATION: US PELVIS AND [...] Electronically authenticated by: MALICK ESPINOZA Date: 2021-08-30 10:29NoUK HealthcareUS SINGLE QUAD RT UPPERon [id number] SINGLE QUAD RT UPPER EXAMINATION: US SINGLE [...] Electronically authenticated by: MALICK ESPINOZA Date: 2021-08-30 10:31[facility] W MANUAL DIFFon [id number] LYMPH #NormalThe Community Memorial HospitalComment on above:Performed By: #### MARU #### [facility] [address] [place] [address] Dr. Cain McwilliamsATYPICAL LYMPH %NormalThe Community Memorial HospitalComment on above: Performed By: #### MARU #### [facility] [address] [address] [address] Cain Henderson #0.2 103/ulNormal0.0-0.3The Community Memorial HospitalComment on above:Performed By: #### MARU #### [facility] [address] [place] [address] Dr. Cain Henderson %3 %Normal0-5The Community Memorial HospitalComment on above:Performed By: #### MARU #### [facility] [address] [address] [address] Cain Bai #0.00 103/ulNormal0.00-0.10The [facility] HospitalComment on above:Performed By: #### MARU #### [facility] [address] [address] [address] Cain Bai %0.0 %Critically low0.2-2.0The [facility] HospitalComment on above:Performed By: #### MARU #### [facility] [address] [place] [address] Dr. Cain Cuellar #NormalThe [facility] HospitalComment on above:Performed By: #### MARU #### [facility] [address] [place] [address] Dr. Cain Cuellar %NormalThe [facility] HospitalComment on above:Performed By: #### MARU #### [facility] [address] [place] [address] Dr. Cain McwilliamsCORRECTED WBCNormal4.0-11.0The Community Memorial HospitalComment on above: Performed By: #### CBCISMAEL #### [facility] [address] [place] [address] Dr. Cain Gannon #0.00 103/ulNormal0.00-0.70The Community Memorial HospitalComment on above:Performed By: #### CBCISMAEL #### [facility] [address] [place] [address] Dr. Cain Gannon%0.0 %Critically low0.9-7.0The Community Memorial HospitalComment on above:Performed By: #### CBCISMAEL #### [facility] [address] [place] [address] Dr. Cain McwilliamsHCT44.2 %Aurrbr28.0-48.0The Community Memorial HospitalComment on above: Performed By: #### CBCISMAEL #### [facility] [address] [place] [address] Dr. Cain McwilliamsHGB14.6 g/ktVemjqg18.0-16.0The [facility] Memorial HospitalComment on above: Performed By: #### MARU #### [facility] [address] [address] [address] Cain Rust #0.34 103/ulCritically low1.20-3.80[facility] Comment on above:Performed By: #### MARU #### [facility] [address] [address] [address] Cain Rust%5.0 %Critically low20.5-60.0The [facility] Memorial HospitalComment on above:Performed By: #### MARU #### [facility] [address] [place] [address] Dr. Cain McwilliamsMCH30.0 rdIbmyix73.7-34.0The [facility] Memorial HospitalComment on above: Performed By: #### MARU #### [facility] [address] [place] [address] Dr. Cain KnoxHC33.0 g/kxOtofgx85.9-35.2The [facility] Memorial HospitalComment on above:Performed By: #### MARU #### [facility] [address] [place] [address] Dr. Cain McwilliamsMCV90.9 rVMvnyux94.0-99.0The [facility] HospitalComment on above: Performed By: #### MARU #### [facility] [address] [place] [address] Dr. Cain CooperOCYTE #NormalThe Community Memorial HospitalComment on above: Performed By: #### MARU #### [facility] [address] [address] [address] Cain CooperOCYTE %NormalThe Community Memorial HospitalComment on above: Performed By: #### MARU #### [facility] [address] [place] [address] Dr. Cain Colon#0.21 103/ulCritically low0.30-0.80[facility] Comment on above:Performed By: #### CBCISMAEL #### [facility] [address] [address] [address] Cain Colon%3.0 %Normal1.7-12.0The [facility] Memorial HospitalComment on above: Performed By: #### CBCISMAEL #### [facility] [address] [address] [address] Cain McwilliamsMPV11.3 fLNormal9.5-13.5The [facility] Memorial HospitalComment on above: Performed By: #### CBCMAN #### [facility] [address] [address] [address] Cain Wagner #NormalThe Community Memorial HospitalComment on above:Performed By: #### CBCISMAEL #### [facility] [address] [address] [address] Cain HaleyOCYTE %NormalThe Community Memorial HospitalComment on above:Performed By: #### CBCISMAEL #### [facility] [address] [address] [address] Cain McwilliamsNRBCNormalThe Community Memorial HospitalComment on above:Performed By: #### CBCISMAEL #### [facility] [address] [place] [address] Dr. Cain ChirinosT153 103/mmSwykah825-775Zld [facility]utement on above: Performed By: #### CBCISMAEL #### [facility] [address] [address] [address] Cain McwilliamsRBC4.86 106/ulNormal4.20-5.40The [facility]utement on above:Performed By: #### CBCISMAEL #### [facility] [address] [address] [address] Cain McwilliamsRDW12.5 %Huyike81.0-15.0The Community Memorial HospitalComment on above: Performed By: #### CBCISMAEL #### [facility] [address] [place] [address] Dr. Cain Chinchilla #6.14 103/ulNormal1.40-6.50The [facility] HospitalComment on above:Performed By: #### CBCMAN #### [facility] [address] [place], [place] [address] Dr. Cain Chinchilla %89.0 %Critically high43.0-75.0The Community Memorial HospitalComment on above:Performed By: #### CBCISMAEL #### [facility] [address] [place], [place] [address] Dr. Cain McwilliamsWBC6.9 103/ulNormal4.0-11.0The Community Memorial HospitalComment on above: Performed By: #### CBCMAN #### [facility] [address] [place], [place] [address] Dr. Cain McwilliamsCT ABD/PELV W CONon 14-51-4269DO ABD/PELV W CONEXAMINATION: CT ABD/PELV W CON [...] Electronically authenticated by: ISHMAEL ESPINALARDEN Date: 2021-08-24 17:39NoUK HealthcareCULTURE BLOODon 13-05-7191Ymvgisxajcn examination of blood, cultureCulture Observations: No growth at 5 days.NormalBethesda North HospitalComment on above:Performed By: #### CBC #### [facility] [address] [place] [address] Dr. Cain McwilliamsMicroscopic examination of blood, cultureCulture Observations: No growth at 5 daysNoUK HealthcareComment on above:Performed By: #### CBC #### [facility] [address] [place] [address] Dr. Cain McwilliamsCovid-19 PCR (CVDTB)on 18-82-3021FNJP-CoV-2 (COVID-19) RNA DANIELLE+probe Ql (Unsp spec)Not detectedNormalNOT [...] for this test is supported by the [place] of Health and Human Service's declaration that [...] longer be used).Performed By: #### CVDTBH #### [facility] [address] [address] [address] Cain Jefferson URINE PROFILEon 78-16-6910Erihpjhwj Ql (U)NegativeNormal NEGATIVEBethesda North HospitalComment on above:Performed By: #### CBC #### [facility] [address] [address] [address] Cain McwilliamsClmadison (U)SL CLOUDYAbnormalCLEARThe Community Memorial HospitalComment on above:Performed By: #### CBC #### [facility] [address] [address] [address] Cain Monterrosolor (U)YELLOWNormalYELLOWBethesda North HospitalComment on above: Performed By: #### CBC #### [facility] [address] [place] [address] Dr. Cain Montenegro micrscopic examination will be performed if indicated. NormalBethesda North HospitalComment on above:Performed By: #### CBC #### [facility] [address] [address] [address] Cain McwilliamsGlucose Ql (U)NegativeNormalNEGATIVEBethesda North HospitalCombronson south [facility] hospital on above:Performed By: #### CBC #### [facility] [address] [address] [address] Cain McwilliamsHemoglobin Ql (U)NegativeNormalNEGATIVEAshtabula County Medical Center on above:Performed By: #### CBC #### [facility] [address] [address] [address] aCin McwilliamsKetones Ql (U)NegativeNormalNEGATIVEBethesda North HospitalComment on above:Performed By: #### CBC #### [facility] [address] [address] [address] Cain McwilliamsLEUKOCYTESNegativeNormalNEGATIVEBethesda North HospitalCombronson south haven hospital on above:Performed By: #### CBC #### [facility] [address] [place] [address] Dr. Cain McwilliamsNitrite Ql (U)NegativeNormalNEGATIVEBethesda North HospitalComment on above:Performed By: #### CBC #### [facility] [address] [address] [address] Cain McwilliamspH (U)5.5 [pH]Normal5-9The Community Memorial HospitalComment on above: Performed By: #### CBC #### [facility] [address] [address] [address] Cain McwilliamsSPEC GRAVITY1.283Gxshyv7.005-<=1.025The Community Memorial HospitalComment on above:Performed By: #### CBC #### [facility] [address] [address] [address] Cain Ni PROTEINNegativeNormalNEGATIVE/ TRACEThe [facility] Comment on above:Performed By: #### CBC #### [facility] [address] [place] [address] Dr. Cain Wright MICRO INDNOT INDICATEDNoalThe Community Memorial HospitalComment on above:Performed By: #### CBC #### [facility] [address] [address] [address] Cain Morrowbilinogen Qn (U)0.2 {Claire'U}/dLNormal0.2 - 1.0The Community Memorial HospitalComment on above:Performed By: #### CBC #### [facility] [address] [place] [address] Dr. Cain McwilliamsLACTATE/LACTIC ACIDon 15-03-1246Fzufzac [Moles/Vol]2.1 mmol/L Critically high0.7-2.0The Community Memorial HospitalComment on above:Performed By: #### LACT #### [facility] [address] [place] [address] Dr. Cain McwilliamsLIPASEon 89-68-2404Rwqizj [Catalytic activity/Vol]102.0 U/LNormal 23.0-300.0The [facility] Memorial HospitalComment on above:Performed By: #### CMP, LIPA #### [facility] [address] [place] [address] Dr. Cain McwilliamsPREG HCG QUALon 00-46-1712FLNVYWODT, QUALNegativeNormalNEGATIVE The Community Memorial HospitalComment on above:Performed By: #### CBC #### [facility] [address] [address] [address] Cain Orellana 14(COMP METB)on 00-89-7212Uajiunc [Mass/Vol]3.7 g/dLNormal 3.4-5.0The [facility] Memorial HospitalComment on above:Performed By: #### CMP, LIPA #### [facility] [address] [address] [address] Cain McwilliamsAlbumin/Globulin [Mass ratio]1.1 {ratio}NormalThe Community Memorial HospitalComment on above:Performed By: #### CMP, LIPA #### [facility] [address] [place] [address] Dr. Cain Gavin [Catalytic activity/Vol]103 U/WMegejo38-276Xbm Community [facility] HospitalComment on above:Performed By: #### CMP, LIPA #### [facility] [address] [place] [address] Dr. Cain Taylor [Catalytic activity/Vol]18 U/GWzkvlk65-64Lpa [facility] on above:Performed By: #### CMP, LIPA #### [facility] [address] [place] [address] Dr. Cain Bravo gap [Moles/Vol]15.3 mmol/LNormalThe [facility] Comment on above:Performed By: #### CMP, LIPA #### [facility] [address] [place] [address] Dr. Cain McwilliamsAST [Catalytic activity/Vol]13 U/LCritically srw16-70Jre [facility]utement on above:Performed By: #### CMP, LIPA #### [facility] [address] [place] [address] Dr. Cain McwilliamsBilirubin [Mass/Vol]0.7 mg/dLNormal0.2-1.3The [facility] Comment on above:Performed By: #### CMP, LIPA #### [facility] [address] [place] [address] Dr. Cain McwilliamsCalcium [Mass/Vol]8.3 mg/dLCritically low8.5-10.1The [facility] HospitalComment on above:Performed By: #### CMP, LIPA #### [facility] [address] [address] [address] Cain McwilliamsChloride [Moles/Vol]102 mmol/OPjbiux76-858Ilm [facility] Comment on above:Performed By: #### CMP, LIPA #### [facility] [address] [address] [address] Cain McwilliamsCO2 [Moles/Vol]22.2 mmol/VRlzcss66.0-30.0The [facility] Comment on above:Performed By: #### CMP, LIPA #### [facility] [address] [place] [address] Dr. Cain McwilliamsCreatinine [Mass/Vol]0.93 mg/dLNormal0.52-1.04The [facility] HospitalComment on above:Performed By: #### CMP, LIPA #### [facility] [address] [place] [address] Dr. Cain RamseyGFR-AF CONGOLESE>60Normal>=60The [facility] HospitalComment on above:Performed By: #### CMP, LIPA #### [facility] [address] [place] [address] Dr. Cain RamseyGFR-NON AF CONGOLESE>60Normal>=60The [facility] HospitalComment on above:Performed By: #### CMP, LIPA #### [facility] [address] [place] [address] Dr. Cain McwilliamsGlobulin (S) [Mass/Vol]3.5 g/dLNormalThe Community Memorial HospitalComment on above:Performed By: #### CMP, LIPA #### [facility] [address] [place] [address] Dr. Cain McwilliamsGlucose [Mass/Vol]108 mg/dLCritically hypq73-449Dqf Community [facility] HospitalComment on above:Performed By: #### CMP, LIPA #### [facility] [address] [address] [address] Cain McwilliamsPotassium [Moles/Vol]3.5 mmol/LNormal3.4-5.0The [facility] Comment on above:Performed By: #### CMP, LIPA #### [facility] [address] [address] [address] Cain McwilliamsProtein [Mass/Vol]7.2 g/dLNormal6.1-8.2The [facility] Comment on above:Performed By: #### CMP, LIPA #### [facility] [address] [address] [address] Cain McwilliamsSodium [Moles/Vol]136 mmol/LCritically mqr333-439Vcz [facility] HospitalComment on above:Performed By: #### CMP, LIPA #### [facility] [address] [address] [address] Cain McwilliamsUrea nitrogen [Mass/Vol]11.0 mg/dLNormal7.0-18.0The [facility] HospitalComment on above:Performed By: #### CMP, LIPA #### [facility] [address] [address] [address] Cain McwilliamsUrea nitrogen/Creatinine [Mass ratio]11.8 mg/mgNormalThe Community Memorial HospitalComment on above:Performed By: #### CMP, LIPA #### [facility] [address] [address] [address] Cain McwilliamsAutomated basophil %on 47-23-7906Ekkbkeukc/100 WBC (Bld)0.4 % [facility] CtrAutomated basophil counton 88-75-0177Ydicxefnr (Bld) [#/Vol]0.0 10*3/uL0.0-0.2FOhioHealth Berger Hospital CtrAutomated blood lymphocyte count (number/volume)on 49-99-9713Gevuxroenan (Bld) [#/Vol]0.8 10*3/uL1.00-4.8[facility] CtrAutomated blood lymphocyte count as percentage of total leukocyteson 17-87-5636Jdtprnzgliy/100 WBC (Bld)21.0 % [facility] CtrAutomated blood monocyte counton 02-11-2019 Monocytes (Bld) [#/Vol]0.2 10*3/uL0.0-0.8[facility] CtrAutomated blood platelet count (count/volume)on 49-07-6159Ufijsfces (Bld) [#/Vol]141 10*3/pP636-734PwsbsclflCleveland Clinic CtrAutomated blood platelet mean volume measurementon 02-77-0725Dklgaxjs mean volume (Bld) [Entitic vol]9.4 fL6.3-10.7 [facility] CtrAutomated eosinophil %on 96-82-3137Ncpefrtaelj/100 WBC (Bld)1.1 %[facility] CtrAutomated eosinophil counton 42-70-7770Ewxajkoywhu (Bld) [#/Vol]0.0 10*3/uL0.0-0.45[facility] CtrAutomated erythrocyte distribution width ratioon 49-23-4798Rbcnmldeuvv distribution width (RBC) [Ratio]12.4 %11.9-15.3FOhioHealth Berger Hospital Ctr Automated erythrocyte mean corpuscular hemoglobin (mass per erythrocyte)on 22-53-2902WHK (RBC) [Entitic mass]30.3 pg24.7-34.3FOhioHealth Berger Hospital Ctr Automated erythrocyte mean corpuscular hemoglobin concentration measurement (mass/volon 40-10-1605VALQ (RBC) [Mass/Vol]33.8 g/dL32.0-35.0[facility] CtrAutomated erythrocyte mean corpuscular volumeon 91-81-9405DDK (RBC) [Entitic vol]89.6 lK05-025ZmsuluhdvCleveland Clinic CtrAutomated erythrocytes count in urine sediment (number/area)on 68-68-2606QDC Auto (Urine sed) [#/Area] 10-19 [HPF][facility] CtrAutomated leukocytes count in urine sediment (number/area)on 46-56-2937QCL Auto (Urine sed) [#/Area]3-4 [HPF] [facility] CtrAutomated monocyte %on 08-51-7455Akvgychuy/100 WBC (Bld)5.6 %[facility] CtrAutomated neutrophil %on 02-11-2019 Neutrophils/100 WBC (Bld)71.9 %[facility] CtrAutomated urine color determinationon 71-92-2184Phonu (U)YellowYellowCleveland Clinic CtrBlood erythrocytes automated count (number/volume)on 68-23-1462BGY (Bld) [#/Vol]4.66 10*6/uL3.60-5.00[facility] CtrBlood hemoglobin measurement (mass/volume)on 98-52-7638Pumdhnmctu (Bld) [Mass/Vol]14.1 g/dL 11.8-15.4FOhioHealth Berger Hospital CtrBlood leukocytes automated count (number/volume)on 98-67-1322ZDS (Bld) [#/Vol]3.8 10*3/uL3.8-11.6FOhioHealth Berger Hospital CtrBlood neutrophil count by automated method (number/volume)on 89-01-1976Fkxwzulthgg (Bld) [#/Vol]2.7 10*3/uL1.8-7.7FOhioHealth Berger Hospital CtrEstimated glomerular filtration rate (GFR) non- Americanon 02-11-2019 GFR/1.73 sq M predicted among non-blacks MDRD (S/P/Bld) [Vol rate/Area] mL/min/{1.73_m2}[facility] CtrHematocrit [Volume Fraction] of Blood by Automated counton 93-51-3639Libtkunzza (Bld) [Volume fraction]41.7 % 34.0-46.4FOhioHealth Berger Hospital CtrOtheron 71-43-9934YNH/1.73 sq M.predicted MDRD (S/P/Bld) [Vol rate/Area]mL/min/{1.73_m2}[facility] Comment on above:GFR estimated reference range: According to KDOQI guidelines, <60 ml/min/1.73m2 is sufficient todiagnose a patient with chronic kidney disease.Nucleated RBC/100 WBC (Bld) [Ratio]0.1 %0-0.5FOhioHealth Berger Hospital CtrPharmacy Creatinine Clearance (Chem94.4731207786LevyozptpCleveland Clinic CtrSerum or plasma calcium measurement (mass/volume)on 95-18-5311Wfehtkx [Mass/Vol]9.5 mg/dL8.2-10.2FOhioHealth Berger Hospital CtrSerum or plasma chloride measurement (moles/volume)on 43-61-0098Itcmahbr [Moles/Vol]107 mmol/L 95-114[facility] ShawSerum or plasma creatinine measurement with calculation of estimated glomerular filtron 37-53-7863Mjnbqaslcl [Mass/Vol]0.86 mg/dL0.44-1.03[facility] CtrSerum or plasma glucose measurement (mass/volume)on 06-23-2558Fbrulmn [Mass/Vol]103 mg/yC53-428WbrlagmbvSelect Medical Cleveland Clinic Rehabilitation Hospital, Edwin ShawComment on above:ADA recommended reference rangeRandom Glucose Reference Range is dependent on time and content of last meal. Glucose of more than 200 mg/dL in a nonstressed, ambulatory subject supports the diagnosisof Diabetes Mellitus.Serum or plasma potassium measurement (moles/volume)on 60-47-4198Eysdbnhlt [Moles/Vol]3.9 mmol/L3.5-5.1FPomerene Hospital Serum or plasma sodium measurement (moles/volume)on 52-57-3114Gjibyy [Moles/Vol] 139 mmol/T772-096TzryuvhpvSelect Medical [facility] Clinic Rehabilitation Hospital, Edwin ShawSerum or plasma total carbon dioxide measurement (moles/volume)on 74-23-2807IB8 [Moles/Vol]24.6 mmol/L 22.0-30.0[facility], [facility] ShawSerum or plasma urea nitrogen measurement (mass/volume)on 69-03-9350Gxlr nitrogen [Mass/Vol]8 mg/dL9-23[facility], [facility] ShawSpecific gravity of Urine by Automated test stripon 02-11-2019 Specific gravity (U) [Rel density]1.0211.001-1.030[facility] Squamous epithelial cells detection in urine sediment by light microscopyon 74-43-4679Cynligtzxf cells.squamous LM Ql (Urine sed)5-9 [HPF][facility] CtrUrinalysison 58-27-9570Zxppnsr casts LM Ql (Urine sed)0-8 [LPF] [facility], [facility] ShawUrine bacteria detection by automated methodon 86-55-3131Gsvopahy Auto Ql (U)None seenNone SeenFirelands Regional Medical Ctr Urine clarity by refractometry automatedon 80-90-4514Lvolgdl Refractometry automated (U)ClearClearFOhioHealth Berger Hospital CtrUrine glucose measurement by automated test strip (mass/volume)on 89-40-9161Iqkdmmq Auto test strip (U) [Mass/Vol]Normal mg/dLNormSelect Medical Specialty Hospital - Southeast OhioUrine hemoglobin detection by automated test stripon 76-89-0540Fyvwpsmyuh Auto test strip Ql (U) 2+NegativeCleveland Clinic CtrUrine human chorionic gonadotropin (hCG) detection by immunoassayon 60-48-0231UUI ( test) Ql (U)Negative NegativeSelect Medical [facility] Clinic Rehabilitation Hospital, Edwin ShawUrine ketones measurement by automated test strip (mass/volume)on 46-59-9103Lrntnfp (U) [Mass/Vol]NegativeNegative [facility], Edwin ShawUrine leukocyte esterase detection by automated test stripon 53-47-3874Dstyrjjee esterase Auto test strip Ql (U)NegativeNegative [facility], Edwin ShawUrine nitrite detection by test stripon 02-11-2019 Nitrite Ql (U)NegativeNegSalem City Hospital CtrUrine pH measurement by automated test stripon 40-00-9370gM (U)5.0 [pH]5.0-9.0[facility] CtrUrine protein measurement by automated test strip (mass/volume)on 66-84-6559Sgyakpc (U) [Mass/Vol]NegativeNegSalem City Hospital Ctr Urine total bilirubin detection by test stripon 50-50-8125Fnnvzoecj Ql (U) NegativeNegMount St. Mary HospitalUrine urobilinogen measurement by automated test strip (mass/volume)on 30-48-8415Zxwjdfyflcxe (U) [Mass/Vol]Normal mg/dLNormWayne Hospital Ctr Vital Signs Date TimeVital SignValuePerforming BmlmjixowRdvintqs37-36-1568 10:32-0400Body mass index (BMI) [Ratio]34.95 kg/r1Efmjv Christian DO Work Phone: [facility] HospitalQvfugyivae17-04-4622 10:32-0400Body ctletu83.25 kgCoreGrabInbox DO Work Phone: NOMercy McCune-Brooks HospitalEttdmejpup93-18-8231 10:32-0400Diastolic blood eqwerxsu07 mm[Hg]Jaxson Christian DO Work Phone: [phone]-[facility] HospitalYnnxwxtpik83-61-7123 10:32-0400Systolic blood mm[Hg]Jaxson Christian DO Work Phone: [phone]-[facility]red HospitalTaeranrfmn94-25-9323 09:34-0400Body mass index (BMI) [Ratio]34.95 kg/x2Iqawv Christian DO Work Phone: [phone] [place], [place] [address]Mypfpfjkhj02-05-9011 09:34-0400Body wsojad10.25 kgCorey Christian DO Work Phone: [phone] [place], [place] [address]90610-20-2025 09:34-0400Diastolic blood wtefxtvs45 mm[Hg]Jaxson Christian DO Work Phone: [phone]10-20-2025 09:34-0400Systolic blood ukdbqdtr757 mm[Hg]Jaxson Christian DO Work Phone: [phone]09-20-2025 12:39-0400Body ludjst438.1 cmG. Raymundo Prieto DO Work Phone: [phone]09-20-2025 12:39-0400 Body mass index (BMI) [Ratio]34.4 kg/m2G. Raymundo Prieto DO Work Phone: [phone] [place], [place] 6301209-20-2025 12:39-0400 Body ijwoxhijgun42.6 [degF]Gabino Prieto DO Work Phone: [phone] [place], [place] 7667109-20-2025 12:39-0400 Body bkfxpi01.89 kgG. Raymundo Prieto DO Work Phone: [phone] [place], [place] 76[address]109-20-2025 12:39-0400 Diastolic blood hdtlqigj53 mm[Hg]Gabino Prieto DO Work Phone: [phone] [place], [place] 7667109-20-2025 12:39-0400 Heart rate77 /Shay. Raymundo Prieto DO Work Phone: [phone] [place], [place] 7667109-20-2025 12:39-0400 Respiratory rate18 /ShaySantana Prieto DO Work Phone: [phone] [place], [place] 7667109-20-2025 12:39-0400 SaO2% (BldA) [Mass fraction]99 %Gabino Prieto DO Work Phone: [phone] [place], [place] 7667109-20-2025 12:39-0400 Systolic blood ijcpemhz058 mm[Hg]Gabino Prieto DO Work Phone: [phone] [place], [place] 7667108-07-2025 13:46-0400 Body kdmehuldmsa11.29 [degF]Genaro Cartagena DMD Work Phone: [phone] [place], [place] 6065908-07-2025 13:46-0400Diastolic blood jvuxaufg45 mm[Hg]Genaro Cartagena DMD Work Phone: 1(880)[address] [place], [place] 6065908-07-2025 13:46-0400Heart rate71 /minKunal Mitzi DMD Work Phone: 1(276)[address] [place], [place] 6065908-07-2025 13:46-0400Systolic blood otqabgub400 mm[Hg]Genaro Cartagena DMD Work Phone: 1(879)[address] [place], [place] 6065904-21-2025 10:23-0400Body nxtayu958.1 cmEllen Warren ACCOUNT INSTALLER Work Phone: [facility] HospitalVzuxbhwlpc23-94-4046 10:23-0400Body mass index (BMI) [Ratio]34.45 kg/r7JzzbuEllen Warren ACCOUNT INSTALLER Work Phone: [facility] HospitalWooonmzuak05-36-1889 10:23-0400Body temperature 97.11 [degF]Ellen Warren ACCOUNT INSTALLER Work Phone: [facility] HospitalMdcvupfqhx31-59-2764 10:23-0400Body gnxjed93.89 kgEllen Warren ACCOUNT INSTALLER Work Phone: [facility] HospitalPrwsqlkcje99-99-2274 10:23-0400Diastolic blood fajwxoet66 mm[Hg]Ellen Warren ACCOUNT INSTALLER Work Phone: [facility] HospitalCrhkrgvmic52-87-4596 10:23-0400Heart rate90 /min Ellen Kelvin ACCOUNT INSTALLER Work Phone: [facility] HospitalVnzbitpqqu64-58-7773 10:23-1947XpG2% (BldA) [Mass fraction]98 %Ellen Kelvin ACCOUNT INSTALLER Work Phone: [facility] HospitalZcnlnnejgh43-18-8707 10:23-0400Systolic blood rjupooso841 mm[Hg]Ellen Warren ACCOUNT INSTALLER Work Phone: [facility] HospitalFboeunopum23-57-4342 11:19-0400Body omottk572.1 cmRtripp Lamar PA Work Phone: [facility] HospitalGywyjzulpr43-88-5739 11:19-0400Body mass index (BMI) [Ratio]34.28 kg/m2Corrine Lamar PA Work Phone: [facility] HospitalUoizlmtvtg96-01-2513 11:19-0400Body temperature 97.39 [degF]Corrine Lamar PA Work Phone: [facility] HospitalPdtgswckux68-83-1329 11:19-0400Body vsnuam69.44 kgRymarito Lamar PA Work Phone: [facility] HospitalCsmakgsexl62-52-0867 11:19-0400Diastolic blood bciifgnu61 mm[Hg]Corrine Lamar PA Work Phone: [facility] HospitalUrdzxnbtfz06-94-8734 11:19-0400Heart rate87 /min Corrine Lamar PA Work Phone: [facility] HospitalZslgzgdkwj58-57-2712 11:19-4790RcV5% (BldA) [Mass fraction]99 %Corrine Lamar PA Work Phone: [facility] HospitalYiiwctgoko17-78-6924 11:19-0400Systolic blood ttipqhyb960 mm[Hg]Corrine Lamar PA Work Phone: [facility] HospitalXzlrjxpdpd32-27-3119 11:35-0400Body mass index (BMI) [Ratio]34.61 kg/a9Hjpoj Christian DO Work Phone: [facility] HospitalHwcshlhrfm08-86-0437 11:35-0400Body xynvhf47.35 kgCorey Christian DO Work Phone: [facility] HospitalZcqkgkuhix62-13-8311 11:35-0400Diastolic blood mm[Hg]Jaxson Christian DO Work Phone: [facility] HospitalIvtruxdwqj07-87-1505 11:35-0400Systolic blood xyjxndhi070 mm[Hg]Jaxson Christian DO Work Phone: [facility] HospitalEelykddguo39-35-2297 14:37-0500Body .1 cmRtripp Lamar PA Work Phone: [facility] HospitalFecqpidkpx63-74-6252 14:37-0500Body mass index (BMI) [Ratio]34.95 kg/m2Corrine MOSELEY Work Phone: [facility] HospitalSgwioctshz86-09-8911 14:37-0500Body temperature 97.39 [degF]Corrine Lamar PA Work Phone: noMer[facility] HospitalRlgbclzcwa81-49-1352 14:37-0500Body tozbrn64.25 kgCorrine MOSELEY Work Phone: [facility] HospitalSlzhiwrqrt93-18-8275 14:37-0500Diastolic blood xklopfkm17 mm[Hg]Corrine MOSELEY Work Phone: noMer[facility] HospitalFadiitiyei63-48-6398 14:37-0500Heart rate87 /min Corrine MOSELEY Work Phone: [facility] HospitalYmncjxobxj58-05-6883 14:37-6375VyV1% (BldA) [Mass fraction]98 %Corrine MOSELEY Work Phone: noMercy [facility]-Brooks HospitalHbngoksrqt65-43-3905 14:37-0500Systolic blood ipdutzee252 mm[Hg]Corrine Lamar PA Work Phone: [facility] HospitalHbqyfzexgb37-50-4207 18:37-0400Body tarpeh130.1 cm[facility]20[facility] 18:37-0400Body mass index (BMI) [Ratio]38.2 kg/x7NgdjtelelOhiohealth Marion [facility] Hospital09-11-2024 18:37-0400Body sqmtmghrxev13.7 [degF][facility]09-11-2024 18:37-0400Body sifwft322.32 kgOhio[facility]09-11-2024 18:37-0400Diastolic blood rtharpiy37 mm[Hg][facility]09-11-2024 18:37-0400 Heart rate85 /[facility]09-11-2024 18:37-0400 Respiratory rate18 /[facility]09-11-2024 18:37-0400 SaO2% (BldA) [Mass fraction]98 %[facility]09-11-2024 18:37-0400Systolic blood xpdhawrw978 mm[Hg][facility] 01-12-2024 15:45-0400Body pnyxutnvkpp98.01 [degF]Summer Workman PA Work Phone: [facility] HospitalWzjjiegcgy17-32-3948 15:45-0400Diastolic blood qvagptdu53 mm[Hg]Summer Workman PA Work Phone: [facility] HospitalCzbwgtrpfm49-69-6498 15:45-0400Heart rate80 /min Summer Workman PA Work Phone: [facility] HospitalVpkotwdxkp14-70-4813 15:45-8399MsH0% (BldA) [Mass fraction]99 %Summer Workman PA Work Phone: [facility] HospitalWbfcwoohvz83-33-5629 15:45-0400Systolic blood ihxqehhl334 mm[Hg][employer] Workman PA Work Phone: [facility] HospitalRoomwjmizj86-85-5811 13:45-0400BP Vignlhppk52 mm[Hg][facility]09-21-2019 13:45-0400BP Lnxwsxoc566 mm[Hg][facility]09-21-2019 13:45-0400Pulse (Heart Rate)74 /[facility] 13:45-0400Pulse Rerjdhpy815 %[facility]09-21-2019 13:45-0400 Respiratory Rate19 /[facility]2019 11:03-0400BMI (Body Mass Index)25.7 kg/m2GSt. [facility] 02-11-2019 11:03Body Ntrkpcnnuuv54.7 [degF][facility] Dap24-65-3861 11:03-0400Body .3 kgG. [facility] Fxc45-05-5115 11:3768Zoicql619.1 cmG. [facility] Encounters Encounter DateEncounter TypeCare ProviderFacilityStart: 04-02-2025 End: 05-37-4611Wwpyythyv Result EncounterCorey Christian DO Work Phone: noms External Department UnsolicitedStart: 04-02-2025 End: 19-17-8819Hrdmmukju Result EncounterCorey Christian DO Work Phone: noms External Department UnsolicitedStart: 03-13-2025 End: 69-44-3860Ggoqgu flowsheetCorey Christian DO Work Phone: [facility] [place] [facility]BGYNStart: 03-13-2025 End: 59-01-2449Psutht flowsheetCorey Christian DO Work Phone: [facility] [place] [facility]BGYNStart: 03-13-2025 End: 90-94-3071Luzolbsiw Result EncounterCorey Christian DO Work Phone: noms External Department UnsolicitedStart: 03-13-2025 End: 06-55-3209Ybjguw outpatient visit 15 minutesCorey Christian DO Work Phone: [facility] [place] OBGYNComment on above:LGSIL of cervix of undetermined significance; Menorrhagia with regular cycle; Dyspareunia in female; Pelvic pain; History of endometrial ablationStart: 03-13-2025 End: 05-75-1192axyxzsirecOIVLE FAZIONot AvailableStart: 03-12-2025 End: 26-98-2959dtaaincluoLSantana Raymundo Prieto DO Work Phone: -[facility] HospStart: 03-12-2025 End: 12-29-4050Hxqkgzed ReferredCorey Christian-LAB Path Spec [place] HospStart: 03-12-2025 End: 78-89-4981Fhfkrsj encounter procedureCoreelise Gonzales DO Work Phone: NOTN [place] OBGYNComment on above:Pre-op examination; Menorrhagia with regular cycle; Pelvic pain in female; Dysmenorrhea; Dyspareunia, female; HGSIL (high grade squamous intraepithelial lesion) on Pap smear of cervixStart: 03-12-2025 End: 24-79-8477Tneijoplsxvxm examination doneCorey Christian DO Work Phone: noms HealthcareStart: 03-12-2025 End: 74-24-9202vonxrtthxuMXDLW FAZIONot AvailableStart: 03-02-2025 End: 49-26-2825mopmqpcxwgH. Raymundo Prieto Work Phone: [facility] Work Phone: Start: 03-02-2025 End: 78-55-4201Jjwdtes encounter procedureAdeel Eckert DO-Flu VaccineStart: 02-10-2025 End: 71-43-4532bgtyymfmsvY. Raymundo Ramachandranshan CORREA Work Phone: [facility] Work Phone: Start: 02-10-2025 End: 46-87-8118Butxmgw encounter procedureTania Whitehead APRN-[facility] Work Phone: Start: 12-28-2024 End: 12-97-3880Jkhymskxb identifierKconsuelo Charlesandreas DMD Work Phone: Dental ClinicStart: 88-92-6614qtloolyokbBsxzf Kanani DMDFORMERLY [facility] DEPARTMENTStart: 09-26-2024 End: 09-73-3401Iikklr Tommie Alvares DPM Work Phone: noms SWS PODIATRYStart: 09-26-2024 End: 73-00-4495Vnabwb flowsheetMadi Alvares DPM Work Phone: noms SWS PODIATRYStart: 09-26-2024 End: 01-90-9648Toptre outpatient new 30 minutesMadi Alvares DPM Work Phone: noms SWS PODIATRYComment on above:Ingrown toenail (Primary Dx); Right foot painStart: 09-26-2024 End: 27-78-2435ydmzmkzxjiIJJKMW JOSEot AvailableStart: 09-11-2024 End: 09-58-3868Arwvgk flowsLorena Warren ACCOUNT INSTALLER Work Phone: [facility] SWS FM 230Start: 09-11-2024 End: 00-81-9210Ghanab Lorelei Warren ACCOUNT INSTALLER Work Phone: [facility] SWS FM 230Start: 09-11-2024 End: 91-62-7016Vbmsly outpatient visit 15 minutesEllen Warren ACCOUNT INSTALLER Work Phone: [facility] SWS FM 230Comment on above:Viral URI (Primary Dx); Cough, unspecified typeStart: 09-11-2024 End: 91-74-0560ieztheanwyPBYEN L LUBYNot AvailableStart: 09-09-2024 End: 50-17-6935Xukkxpihu Result EncounterGeneric External Data ProviderNOMS External Department UnsolicitedStart: 09-09-2024 End: 73-41-5555Vfllgzhpl Result EncounterGeneric External Data ProviderNOMS External Department UnsolicitedStart: 09-05-2024 End: 71-18-1415Plqkxtas ReferredG. Raymundo Prieto DO Work Phone: [facility] Path Spec [place] HospStart: 09-05-2024 End: 40-15-2563pgjgkqvmrpV. Robert Kaftan DO Work Phone: [facility] Work Phone: Start: 08-22-2024 End: 47-93-6267Impogxgunnar MOSELEY Work Phone: NOMN SWS FM 230Start: 08-22-2024 End: 15-72-2598Iboael flowsheetCorrine MOSELEY Work Phone: NOCJ SWS FM 230Start: 08-22-2024 End: 75-42-5037Xdcpfra encounter procedureCorrine MOSELEY Work Phone: [facility] Work Phone: Start: 08-22-2024 End: 35-08-2719Lmjznpgx preventive med est patient 18-39 yrsCorrine MOSELEY Work Phone: NOIO SWS FM 230Comment on above:Annual wellness visit (Primary Dx)Start: 08-22-2024 End: 58-78-6493tldbsremetUBRW M MYERSNot AvailableStart: 08-18-2024 End: 46-64-4739Qrsgbh Jessica MOSELEY Work Phone: noms SWS FM 230Comment on above:Paronychia of toe, unspecified laterality (Primary Dx)Start: 08-15-2024 End: 68-77-0165Ifaszfthb Result EncounterGeneric External Data ProviderNOMS External Department UnsolicitedStart: 08-15-2024 End: 28-92-3795Uwasemtry Result EncounterGeneric External Data ProviderNOMS External Department UnsolicitedStart: 08-15-2024 End: 71-32-4674Xqkedit encounter procedureCorey Christian DO Work Phone: noms HealthcareStart: 08-15-2024 End: 86-08-1505Xwdxnhtm preventive med est patient 18-39 yrsCorey Christian DO Work Phone: noms BCP OBComment on above:Well woman exam with routine gynecological exam; Menorrhagia with regular cycle; History of endometrial ablationStart: 08-15-2024 End: 80-69-3274ruusmlceoxHFAPC FAZIONot AvailableStart: 08-14-2024 End: 42-81-9572Mvadsanv ReferredG. Raymundo Prieto DO Work Phone: [facility] [address] Work Phone: start: 08-14-2024 End: 06-27-8776ygwaudqdcoY. Raymundo Prieto DO Work Phone: [facility] Work Phone: Start: 05-22-2024 End: 83-84-6057krryyvrwusRQKS M MYERSNot AvailableStart: 05-22-2024 End: 25-91-9358Zlsxgv outpatient visit 15 Donita MOSELEY Work Phone: noms SWS FM 230Comment on above:Paronychia of great toe of right foot (Primary Dx); Toenail fungusStart: 05-22-2024 End: 80-64-0633Mmumzr Miguel MOSELEY Work Phone: noms SWS FM 230Start: 05-22-2024 End: 92-82-6643Ywyaoh Miguel MOSELEY Work Phone: noms SWS FM 230Start: 02-02-2024 End: 96-44-2419gsiocfnwcpPccefjcgj [facility] Work Phone: Start: 02-02-2024 End: 68-28-3495Npxliij encounter procedureFormerly [facility] Work Phone: Start: 01-12-2024 End: 39-27-1058Qdxwfj outpatient visit 15 Lazaro MOSELEY Work Phone: noMS SWS UCComment on above:Viral syndrome (Primary Dx)Start: 06-22-2022 End: 82-87-9713eycilhbeyxYN JAXSON FAZIOFacility:U9Jdxvf: 10-09-2021 End: 64-66-7416odhihsnoogOA JAXSON FAZIOFacility:Q5Dflhv: 73-14-2928Odvbdjuzx for other preprocedural examinationDR JAXSON FAZIOThe [facility] Hospitaltart: 75-88-0935sjnbxsigleXK JAXSON FAZIOFacility:W7Qrpie: 10-01-2021 End: 67-25-7958bxcdvbofhqFJ JAXSON LOBATOOFacility:F2Pgxpf: 10-01-2021 End: 73-20-3523Kefeeozqg for other preprocedural examinationDR JAXSON GONZALES Facility:P8Zgdlj: 08-30-2021 End: 90-90-3837ayrituaibaCRVBO LUBYFacility:K9Dvjss: 08-25-2021 End: 02-21-9657fjucidbqqsRA JAXSON LOBATOOFacility:Z6Mhgza: 08-24-2021 End: 87-45-2271fquyxixemrAO SOFIA SCHWARTZFacility:B3Rlwhp: 02-11-2019 End: 37-63-0511Mitsacpis department patient visitG. Conner-Emergency RoomStart: 04-06-2018 End: 89-38-4087Ydoqrge encounter procedureGSantana Prieto-[facility] for Breast Car Procedures DateProcedureProcedure DetailPerforming ClinicianStart: 72-36-7822KPN CBC WITH AUTO DIFFCoreelise Makani Power DO Work Phone: Start: 10-27-6293LQV,APTIMA HPV,AGE GDLNCorey Christian DO Work Phone: Start: 83-46-7458Zgutdwnxdrf observation [Identifier] in Cervix by Cyto stainCorey Christian DO Work Phone: Start: 61-48-5546Amtzr test visual color cmprsn methsCoreelise Christian DO Work Phone: Start: 94-82-3880Btopp cultureG. Raymundo Prieto DO Work Phone: Start: 12-28-2024 End: 19-41-8016ztdflp risk assessment and documentation, with a finding of high riskKunal Kanani DMD Work Phone: Start: 12-28-2024 End: 41-58-5498Bfwkgnbdmnqmt of current medicationsKunal Kanani DMD Work Phone: Start: 12-28-2024 End: 50-12-8920osvwoekzurg counseling for control of dental diseaseKunal Kanani DMD Work Phone: Start: 12-28-2024 End: 36-45-4743fzwt hygiene instructionsGenaro Cartagena DMD Work Phone: Start: 12-28-2024 End: 80-92-3232nszffobemai scaling and root planing - one to three teeth per quadrantKconsuelo Cartagena DMDStart: 12-28-2024 End: 89-13-2606snsgciz application of fluoride varnishGenaro Cartagena DMDStart: 20-86-4998FKGHTT COVID-19/Glenn Warren ACCOUNT INSTALLER Work Phone: Start: 26-90-8838QAKRB RESPIRATORY CULTUREGeneric External Data ProviderStart: 05-54-0848Yrmic test visual color cmprsn methsCorey Christian DO Work Phone: Start: 81-81-4343ACO,APTIMA HPV,AGE GDLNCorey Christian DO Work Phone: Start: 08-23-1485Mzhygiirbgd observation [Identifier] in Cervix by Cyto stainEllen Warren ACCOUNT INSTALLER Work Phone: Start: 63-79-0309Uiubp Strep (POC)Start: 70-40-8619GP abdomen pelvis wo Eugene. Kaftan Plan of Treatment DateCare ActivityDetailAuthorStart: 56-72-1210Ckaskegvz for malignant neoplasm of cervixNOMS HealthcareStart: 83-35-1606Ecnkmzhjh for malignant neoplasm of cervixNOMS HealthcareStart: 01-87-3790Hktdkrd [facility] Work Phone: Start: 03-13-2025 End: 96-21-0648Znkbvlh encounter procedureNOMS BCP OBComment on above:Arrived Start: 03-12-2025 End: 05-57-5902Fabohco encounter olvbiudhv31/20/2025 9:30 AM EDT Procedure Visit [facility] [address] [place] [address] Jaxson Gonzales DO [address] [place] [address] NOMS BCP OBStart: 28-08-9067Cndhovx, AgapitoKit [facility] Work Phone: Start: 67-84-5987LJTRS-19 Vaccine ( season) COVID-19 Vaccine ( season)NOMS HealthcareStart: 98-31-8201MdtqOrthocolorado [facility] Work Phone: Start: 10-10-2024 End: 73-06-6810Rwlyyme encounter alrnqplrp61/20/2025 9:30 AM EDT Office Visit [facility] [address] [place] [address] Madi Alvares, DPM [address] [place] [address] N[facility] SWS PODIATRYStart: 09-26-2024 End: 71-49-7784Bswcjxw encounter rwjqdjdmy83/06/2025 9:30 AM EDT Office Visit [facility] [address] [place] [address] Madi Alvares, DPM [address] [place] [address] ArrivedNOMS SWS PODIATRYComment on above: ArrivedStart: 09-11-2024 End: 65-03-6912Uevznow encounter uvmrpjfym35/21/2025 10:20 AM EDT Office Visit [facility] [address] [place] [address] Ellen Warren, ACCOUNT INSTALLER [address] [place] [address] ArrivedNOMS SWS FM 230Comment on above:ArrivedStart: 08-22-2024 End: 69-33-8013Onxbvhe encounter ogzcdoopg27/01/2025 11:20 AM EDT Office Visit [facility] [address] [place] [address] Corrine Lamar PA [address] [place] [address] ArrivedNOOK SWS FM 230Comment on above:ArrivedStart: 08-03-2024 End: 52-35-8559Fxtrajv encounter xnccokaot02/13/2025 8:30 AM EDT Office Visit [facility] [address] [facility] [address] Jaxson Gonzales, DO [address] [facility] [address] [place] [address] [facility] BCP OBStart: 90-96-9656Yfvewuogm for malignant neoplasm of cervixNOOK HealthcareStart: 29-09-4926Mgbpgkzvs vaccinationInfluenza Vaccine (#1)[facility] HealthcareStart: 28-07-9930Pfnyzkoeb for malignant neoplasm of cervixPap SmearNOOK HealthcareCytology Cervical or vaginal smear or scraping studyPap Smear Pathology and Cytology Routine Well woman exam with routine gynecological exam Ordered: 08/15/2024[facility] Healthcare Work Phone: comment on above:Ordered: 08/15/2024ytology Cervical or vaginal smear or scraping studyPap Smear Pathology and Cytology Routine LGSIL of cervix of undetermined significance Ordered: 03/13/2025[facility] Healthcare Work Phone: comment on above:Ordered: 03/13/2025Human papilloma virus DNA [Presence] in Unspecified specimen by Probe with amplificationHPV DNA probe, amplified Microbiology Routine Well woman exam with routine gynecological exam Ordered: 08/15/2024[facility] HealthcareComment on above:Ordered: 08/15/2024 Human papilloma virus DNA [Presence] in Unspecified specimen by Probe with amplificationHPV DNA probe, amplified Microbiology Routine LGSIL of cervix of undetermined significance Ordered:03/13/2025[facility] HealthcareComment on above: Ordered: 10/21/2025Patient EducationKidney Stones (ED) How to Strain Your Urine (ED)[facility]trPatient referralFirMercy Hospital Ctr Tissue examTissue exam Pathology and Cytology Routine Pre-op examination Menorrhagia with regular cycle Pelvicpain in female Dysmenorrhea Dyspareunia, female HGSIL (high grade squamous intraepithelial lesion) on Pap smear of cervix Ordered: 03/12/2025[facility] Healthcare Work Phone: comment on above:Ordered: 03/12/2025Urine culture [facility] Immunizations Immunization DateImmunizationNotesCare YjpgqftxIhyjreqz59-36-5486tfiwrhxco, seasonal, injectable, preservative freeCorrine MOSELEY Work Phone: [facility]OMer[facility] HospitalWuvtqdvkij47-87-2532xedonde toxoid, reduced diphtheria toxoid, and acellular pertussis vaccine, adsorbedSummer Dread PA Work Phone: [facility] HospitalMswstejtqo98-81-8313iylqydtddzqog polysaccharide (groups A, C, Y and W-135) diphtheria toxoid conjugate vaccine (MCV4P)Corrine MOSELEY Work Phone: [facility] HospitalGwryvucdat72-76-0891ozdtxlqczz, tetanus toxoids and pertussis vaccineCorrine MOSELEY Work Phone: [facility] HospitalIhxngqdmvk89-65-1726qjlbhkh, mumps and rubella virus vaccineCorrine MOSELEY Work Phone: [facility] HospitalNzxqbrrbws28-07-9329yqlqijbeoz vaccine, inactivatedCorrine MOSELEY Work Phone: [facility] HospitalMjepktmdku98-41-2156mvcxiryaepu influenzae type b vaccine, PRP-T conjugateCorrine MOSELEY Work Phone: [facility] HospitalLqnwhnmdpe08-56-3840pnqzisp, mumps and rubella virus vaccineCorrine MOSELEY Work Phone: [facility] HospitalQbidzicwbz63-26-7061leeekfhggd, tetanus toxoids and pertussis vaccineCorrine MOSELEY Work Phone: [facility] HospitalJuiwonhjoq77-04-5269ixtgdgyfufz influenzae type b vaccine, PRP-T conjugateCorrine MOSELEY Work Phone: [facility] HospitalRzclmkfqsk30-69-5878cznomjjuhm, tetanus toxoids and pertussis vaccineCorrine MOSELEY Work Phone: NOMS Llbyhhpfrm48-09-8863fkpglqbmag vaccine, inactivatedCorrine Biranda MOSELEY Work Phone: [facility] Rvvvcyzhvy32-08-6176ciodckiftr, tetanus toxoids and pertussis vaccineCorrine Brianda MOSELEY Work Phone: N[facility] Yccjromcaj14-99-4194znupjanjte vaccine, inactivatedCorrine Brianda MOSELEY Work Phone: [facility] Payers DatePayer CategoryPayerPolicy [id number]-[id number] [id number] 2023Medicaid [id number]..[id number] [id number] 2..1.465876.3.579.[id number] 2..1.946798.3.579.[id number] 2..1.726731.3.579.2.06650-50-0151Qopujmz6374601 2..1.938861.3.579.2.40360-64-6575Koucush8579090 2..1.774195.3.579.2.65912-66-8502Twjfbau9107962 2..1.626014.3.579.2.81503-87-4427Dophrcs8401509 2..1.948374.3.579.2.07508-78-5349Gizkuiq2685599 2..1.098904.3.579.2.89472-09-2939Ujgzxtf80594772 2.0.1.710704.3.579.2.23631-45-6029Tdubtpz68423485 2.0.1.849998.3.579.2.[id number] 2.0.1.609893.3.579.2.102106-59-2819Qogeowh9677739 2..1.420982.3.579.2.012427-04-8512Vsizuid0728301 2..1.017313.3.579.2.840739-20-9723Sxxqtwo6056247 2..1.024424.3.579.2.647616-33-9394Wotklwr4607325 2..1.383343.3.579.2.679515-55-4585Pjyxcgf7679991 2..1.834401.3.579.2.369431-92-3521Rtduigx1836703 2..1.868348.3.579.2.[id number] h433f74a-m6b1-07o9-9641-c2123[id number] Pay [id number] [id number]-2gf3-6038-i2r4-89o7d376y839SogvmubJwjckatit No [id number] 2uy9d023-7y88-2v48-q25[id number] 2.0.1.531570.3.579.2.170Nvlubnn80998858 2..1.893734.3.579.2.531 [id number] 2.840.1.795235.3.579.2.725Hniyfeq54189511 2.0.1.419026.3.579.2.022Rtxgkqj25936327 2.840.1.878359.3.579.2.531 [id number] 2.0.1.938456.3.579.2.531 Social History DateTypeDetailFacilityStart: 58-45-8866Qeimbwh smoking status NHISNever smoked tobacco (finding)[facility]Start: 59-82-0002Lkg Assigned At BirthS[facility] Limatart: 12-23-2022 End: 64-53-7464Cosljgu smoking status NHISEx-smoker (finding)[facility] HospitalHistory of tobacco useCurrent smokerNOMS HealthcareHistory of tobacco useCigarette SmokerNOMS HealthcareStart: 63-37-5056Rtabosa use and exposureSmokeless tobacco non-userNOMS HealthcareStart: 01-12-2024 End: 34-75-7970Pjvszivti beverage intakeLifetime non-drinker (finding)[facility] HealthcareStart: 12-23-2022 End: 24-69-8004Vnxenmc of Social functionNOMS HealthcareStart: 12-23-2022 End: 00-57-4159Arakcjo use panelNOMS HealthcareStart: 15-17-5315Ccmfdxb Comment Caffeine: > 4 cups/day sodaNOMS HealthcareStart: 07-25-7606Liv assigned at Not on fileNOMS HealthcareStart: 08-15-2024 End: 67-22-9367YmaRnciva (finding)[facility] Hospitaltart: 15-36-5924Moaqixt intakeAlcohol Use DetailsOrthocolorado Hospital At St[facility] Sexual OrientationStraight or heterosexualOrthocolorado Hospital At St. [facility] Work Phone: Start: 42-06-4163Oyelpm identityFeUtica Psychiatric Centertart: 08-80-2307SpoKrwmivDOOV HealthcareNEGATED: Highlighted rowStart: 47-21-2977Dsxhrhy smoking status NHISUnknown if ever smokedOrthocolorado Hospital At St. Anthony Medical CampusNEGATED: Highlighted rowStart: 45-50-3739Anxxqjd of tobacco useCurrent non-smokerOrthocolorado Hospital At St[facility] Goals DatePatient GoalDesired Activity/State Functional Status VbeiOirnsfmwpqBshwqeKicsogaf71-60-9372Qzmeews Health Questionnaire 2 item (PHQ- 2) [Reported][facility] Clinical Notes 10-09-2021 to 03-13-2025 Note Date & BksxRhbvZcrffsij21-43-2934 History of Present illness Narrative* Karla Payne, [employer] - 03/13/2025 10:40 AM EDT Reason for [...] (BMI 30-39.9) Pelvic pain 2007 Pre-op exam ([facility] 2010 ([facility]) 2009 Umbilical hernia Varicella zoster Well [...] (BMI 30-39.9) Pelvic pain 2007 Pre-op exam ([facility]) 2010 ([facility]) 2009 Umbilical hernia age 3 Varicella [...] LAPAROSCOPY 2007 pelvic pain PELVIC LAPAROSCOPY 2018 HI COLPOSCOPY,ENTIRE VAGINA,W/BIOPSY(S) 2009 abnormal pap smear TUBAL [...] nursing note reviewed. Exam conducted with a party plan selling distributor present. Vitals: Estimated body mass index is [...] of: Jaxson Gonzales DO documented in this encounterKindred [id number] History of Present illness Narrative* Keily Lew [...] on 04/11/[address] Gonzales at [facility]. MEDICATIONS No current outpatient medications ALLERGIES [...] (BMI 30-39.9) Pelvic pain 2007 Pre-op exam ([facility]) 2009 ([facility]) 2009 Umbilical hernia Varicella zoster Well [...] (BMI 30-39.9) Pelvic pain 2007 Pre-op exam ([facility]) 2010 ([facility]) 2009 Umbilical hernia age 3 Varicella [...] LAPAROSCOPY 2007 pelvic pain PELVIC LAPAROSCOPY 2018 HI COLPOSCOPY,ENTIRE VAGINA,W/BIOPSY(S) 2009 abnormal pap smear TUBAL [...] nursing note reviewed. Exam conducted with a party plan selling distributor present. Vitals: Estimated body mass index is [...] reviewed, and patient is to proceed to [facility] OR. Follow Up: Patient is to follow up at 1 & 6 weeks post operative to assess proper healing and recovery from procedure. Documented by Carmelina Heard LPN on behalf of: Jaxson Gonzales DO documented in this encounterKindred [id number] Evaluation note* Diagnosis Onset Date Resolution Status Admit Date Acute UTI acuteSept2024 12:24pm [facility] Work Phone: 1(277) 402-167608-07-2025 Evaluation note* Type Assessment Date assessment Encounter for screening for dent al disorders [facility] Work Phone: 1(408) 542-588008-07-2025 History of Present illness Narrative* Encounter Date Complaint History Of Prese nt Illness [facility] Work Phone: 1(130) 864-612505-06-2025 History of Present illness Narrative* Madi Alvares [...] LAPAROSCOPY 2007 pelvic pain PELVIC LAPAROSCOPY 2018 HI COLPOSCOPY,ENTIRE VAGINA,W/BIOPSY(S) 2009 abnormal pap smear TUBAL [...] Homegoing instructions were dispensed, including office and nutrition aide contact numbers. documented in this [facility]05-06-2025 Instructions* Patient Instructions* Hannah Tatum MA - [...] please call the office. documented in this [facility]04-21-2025 History of Present illness Narrative* Ellen Warren [...] LAPAROSCOPY 2007 pelvic pain PELVIC LAPAROSCOPY 2018 HI COLPOSCOPY,ENTIRE VAGINA,W/BIOPSY(S) 2009 abnormal pap smear TUBAL [...] orders for this visit: Viral URI - maukfzosacuwzvb-nuqvkxynlruaosy-DN 30-2-10 MG/5ML syrup; Take 5 mL by [...] or fail to improve. documented in this encounterKindred [id number] History of Present illness Narrative* LORELEI Crockett - 08/22/2024 11:20 AM EDT Images from the original note were not included. Subjective Patient ID: Farzaneh Marvin is a 33 y.o. female who presents for Annual Exam (Pt states she is here for a yearly wellness. Pt states that she will starting at [facility] and she will need the wellness for her health insurance. ). Wellness Examination Pt presents to the office for an annual wellness visit without any current complaints. She recentlyhad labs completed at [facility] and is not currently taking any [...] family history were discussed. documented in this [facility]03-28-2025 History of Present illness Narrative* LORELEI Crockett - 08/18/2024 1:05 PM EDT Referral sent. documented in this [facility]03-25-2025 History of Present illness Narrative* Karla Payne LPN - 08/15/2024 11:20 AM EDT Reason for Appointment: Patient ID: Farzaneh Marvin is a 33 y.o. female who presents for [facility] Visit Patient presents today for Annual [...] LAPAROSCOPY 2007 pelvic pain PELVIC LAPAROSCOPY 2018 HI COLPOSCOPY,ENTIRE VAGINA,W/BIOPSY(S) 2009 abnormal pap smear TUBAL [...] nursing note reviewed. Exam conducted with a party plan selling distributor present. Vitals: Estimated body mass index is [...] annual unless needed otherwise. Documented by Karla Panye LPN on behalf of: Jaxson Gonzales DO documented in this encounterKindred [id number] History of Present illness Narrative* LORELEI Crockett [...] concerns. Pt verbalized understanding. documented in this encounterKindred [id number] History of Present illness Narrative* LORELEI Whaley [...] swab in house negative. documented in this encounterKindred [id number] NoteOPERATIVE NOTE OPERATION DATE: 10/09/2021 PROCEDURE: Juhi endometrial ablation with hysteroscopy. PREOPERATIVE DIAGNOSIS: Menorrhagia. POSTOPERATIVE DIAGNOSIS: Menorrhagia. ANESTHESIA: General. SURGEON: Jaxson Gonzales M.D. CASEWORKER: None. FINDINGS: Normal appearing endometrium. Both ostia [...] [facility] Signed and Approved by: DR JAXSON GONZALES . 10/13/2021 07:35:00[facility] note* Clinical Note Date No Information [facility] Work Phone: Discharge summary* Clinical Note Date No Information [facility] Work Phone: Evaluation note* Diagnosis Onset Date Resolution Status COVID acuteContact with and (suspected) exposure to covid-19noneactiveSore throat noneactive [facility] Work Phone: Evaluation note* Diagnosis Viral syndrome- Primary Unspecified viral infection, in conditions classified elsewhere and of unspecified site documented in this encounter [facility]* Diagnosis Paronychia of great toe of right foot- Primary Toenail fungus documented in this encounter [facility]Evaluation noteNo assessment information available[facility] Work Phone: Evaluation note* Diagnosis Paronychia of toe, unspecified laterality- Primary documented in this encounter [facility] Healthcare[facility]* Diagnosis Well woman exam with routine gynecological exam Routine gynecological examination Menorrhagia with regular cycle History of endometrial ablation documented in this encounter [facility] HealthcareEvaluation note* Diagnosis Annual wellness visit- Primary documented in this encounter [facility] HealthcareEvaluation note* Diagnosis Viral URI- Primary Acute upper respiratory infections of unspecified site Cough, unspecified type documented in this encounter [facility] HealthcareEvaluation note* Diagnosis Ingrown toenail- Primary Ingrowing nail Right foot pain Pain in soft tissues of limb documented in this encounter [facility]* Diagnosis Onset Date Resolution Status Admit Date Dysuria noneactiveSept2024 12:24pm [facility] Work Phone: Evaluation note* Diagnosis Pre-op examination Menorrhagia with regular cycle Pelvic pain in female Unspecified symptom associated with female genital organs Dysmenorrhea Dyspareunia, female HGSIL (high grade squamous intraepithelial lesion) on Pap smear of cervix documented in this encounter [facility] HealthcareEvaluation note* Diagnosis LGSIL of cervix of undetermined significance Menorrhagia with regular cycle Dyspareunia in female Pelvic pain History of endometrial ablation documented in this encounter [facility] Healthcare[facility]* Clinical Note Date No Information [facility] Work Phone: History of Past illness Narrative* Condition Effective Dates (start - stop) O utcome No Information [facility] Work Phone: Instructions* Date Instruction Additional Infor mation No Information [facility] Work Phone: Progress note* Clinical Note Date No Information [facility] Work Phone: Reason for referral (narrative)* Reason For Referral No Information [facility] Work Phone: Reason for referral (narrative)No reason for referral [facility] Work Phone: Review of systems Narrative - Reported* System Pos/Neg Findings No Information [facility] Work Phone: Advance Directives Advance Directive Response [...] and content) DATE CREATED AUTHOR 06/25/2022 [facility] DATE CREATED AUTHOR AUTHOR'S ORGANIZ ATION 12/30/2024 [facility] DATE CREATED AUTHOR AUTHOR'S ORGANIZ ATION 03/14/2025 [facility] DATE CREATED AUTHOR AUTHOR'S ORGANIZ ATION 03/17/2025 [facility] Care Teams (unrecognized sec tion and content) Team Status: Active Member Role Status Dates Gabino Prieto DO Primary Care Provider Active Team Status: Inactive Member Role Status Dates Gabino Prieto DO Primary Care Provider Active Start: February 02, 2024 End: February 01jarrod Shell [facility] , APRNAttending ProviderActiveStart: February 02, 2024 End: February 02, 2024Team MemberRelationshipSpecialtyStart DateEnd Date Warren Prieto DO [address] [place] [address] [facility]09/29/22Team MemberRelationshipSpecialtyStart DateEnd Date Warren Prieto DO [address] [place] [address] [facility] - [facility]09/29/22Team MemberRelationshipSpecialtyStart DateEnd Date Warren Prieto DO [address] [place] [address] [facility]09/29/22 Team Status: Inactive Member Role Status Dates Gabino Prieto DO Primary Care Provider Active Start: August 14, 2024 End: August 14, 2024Wes John Jr, DOAttending ProviderActiveStart: August 14, 2024 End: August 14, 2024Team MemberRelationshipSpecialtyStart DateEnd Date Warren Prieto DO [address] [place] [address] [facility] - [facility]09/29/22Team MemberRelationshipSpecialtyStart DateEnd Date Warren Prieto DO [address] [place] [address] PCP - GeneralFamily Medicine09/29/22Team MemberRelationshipSpecialtyStart DateEnd Date aWrren Prieto, DO [address] [place] [address] PCP - GeneralFamily Medicine09/29/22Team MemberRelationshipSpecialtyStart DateEnd Date Warren Prieto, DO [address] [place] [address] PCP - Generalmily Medicine09/29/22Team MemberRelationshipSpecialtyStart DateEnd Date Warren Prieto, DO [address] [place] [address] PCP - Generalmily Medicine09/29/22Team MemberRelationshipSpecialtyStart DateEnd Date Warren Prieto, DO [address] [place] [address] PCP - Generalmily Medicine09/29/22Team MemberRelationshipSpecialtyStart DateEnd Date Warren Prieto, DO [address] [place] [address] PCP - Generalmily Medicine09/29/22 Team Status: Inactive Member Role Status Dates Jaxson Gonzales DO Attending Provider Active Start : September 05, 2024 End: September 05, 2024Team MemberRelationshipSpecialtyStart DateEnd Date Warren Prieto DO [address] [place] [address] PCP - GeneralFamily Medicine09/29/22Team MemberRelationshipSpecialtyStart DateEnd Date Warren Prieto DO [address] [place] [address] PCP - [facility]09/29/22 Name Effective Dates (start - stop) Status Members No Information Team Status: Inactive Member Role Status Dates Tania Dove APRN Attending Provider Active Start: February 10, 2025 End: February 10. Prerna Cadena Care ProviderActiveStart: February 10, 2025 [...] DO [address] [place] [address] PCP - [facility]09/29/22 Team Status: Inactive Member Role/Relationship Status Dates Tania Dove APRN Attending Provider Active Start: February 10, 2025 End: February 10, 2025G. Raymundo RamachandranFrank archerlena Care ProviderActiveStart: February 10, 2025 End: February [...] [address] [place] [address] PCP - GeneralFamily Medicine09/29/22Team MemberRelationshipSpecialtyStart DateEnd Date Warren Prieto DO [address] [place] [address] PCP - GeneralFamily Medicine09/29/22 Goals (unrecognized section and content) Health [...] Pt states that she will starting at [facility] and she will need the wellness for [...] BE BASED ON THE PRIMARY CLINICAL RECORDS. [employer] provides no warranty or guarantee of the accuracy or completeness of information in this document.
--- OUTSIDE RECORDS SUMMARY | 2025-04-11 06:00 | XMS_ITS | Clinical Summary ---
Author Organization [facility] Address [address] [place] [address] Care Team Providers Care Control Clerk Name Role Phone Warren Prieto DO Primary Care Provider [phone] Allergies Active AllergyReactionsCriticalityNoted ZnmgZqtxyihyQnxjoonxsdnjGgggi05/18/2023 Levofloxacin In D5w08/09/2013 Medications No known medications Active Problems ProblemNoted DateDiagnosed DateHuman papilloma virus (HPV) aongnarar45/18/2023 Liver lesion, right lobe02/08/2023Low grade squamous intraepithelial lesion (LGSIL) on cervicovaginal cytologic smear02/08/20234104Pdcnmqplxgl02/18/2023Obesity 3Pain in pmhlnp0102/08/20231931Vdjheihsw30/18/2023Thrombocytopenic disorder 3Distal radius /10/2014 Encounters DateTypeDepartmentCare FmwtPxantoivuyy87/11/2025Telephone [facility] [address] [place] [address] Adia Murphy MA 04/02/2025linisync Result Encounter [facility] Department Unsolicited Jaxson Gonzales DO 03/28/2025Orders Only [facility] [address] [place] [address] Beatriz De Los Santos LPN 03/14/2025bstract [facility] [address] [place] [phone] Adia Murphy MA 03/13/2025 10:40 AM EDTProcedure Visit [facility] [place], [place] [address] [phone] Jaxson Gonzales, LGSIL of cervix of undetermined significance; Menorrhagia with regular cycle; Dyspareunia in female; Pelvic pain; History of endometrial rrnicmcg69/21/2025Clinisync Result Encounter [facility] External Department Unsolicited Jaxson Gonzales DO 5Bamboo flowsheet [facility] [address] [place] [phone] Jaxson Gonzales DO 03/12/2025 9:30 AM EDTProcedure Visit [facility] [address] [place] [address] [place] [address] Jaxson Gonzales, Pre-op examination; Menorrhagia with regular cycle; Pelvic pain in female; Dysmenorrhea; Dyspareunia, female; HGSIL (high grade squamous intraepithelial lesion) on Pap smear of cervixfrom Last 3 Months Immunizations ImmunizationAdministration DatesNext BjqFCR4106/25/1991,12/02/1990,04/22/1990, 01/31/1990Hib (PRP-T)03/31/1991,12/02/1990IPV106/25/1991,04/22/1990,01/31/1990 Influenza, seasonal, injectable, preservative free08/14/2024MMR106/25/1991, 03/31/1991Meningococcal AKA6Q2610/05/2006Tdap11/19/2014 Family History Medical HistoryRelationNameCommentsNo Known ProblemsDaughter 1No [...] > 4 cups/day sodaPHQ-2AnswerDate RecordedPatient Health Questionnaire-2 Jauoq216CommentsUnknownSex and Gender InformationValueDate RecordedSex Assigned at BirthNot on fileLegal SexFemale 08/05/2022 6:48 PM EDTGender IdentityNot on fileSexual OrientationNot on file Last Filed Vital Signs Vital SignReadingTime TakenCommentsBlood Hiotuwfa585/801 10:32 AM EDT Yqkqp835109/11/2024 10:23 AM ONCSizgsthixqk82.2 ??C (97.1 ??F)09/11/2024 10:23 AM EDTRespiratory Rate--Oxygen Lssqskhmaq51%09/11/2024 10:23 AM EDTInhaled Oxygen Concentration--Astcai74.3 kg (210 lb)03/13/2025 10:32 AM FOGEywvou560.1 cm (5' 5 )09/11/2024 10:23 AM EDTBody Mass Index34.95009/11/2024 10:23 AM EDT Plan of Treatment DateTypeDepartmentCare Team (Latest Contact Info)Xtrwjwhjefs32/26/2026 10:00 AM EDTProcedure Visit [facility] [address] [place] [address] Jaxson Gonzales DO [address] [place], [place] [phone] Health MaintenanceDue DateLast DoneCommentsHPV/Nuusad815005/30/2019COVID- 19 Vaccine ( season)504/ervical Cancer Screening 03/13/2028Pap Smear, 08/15/2024Influenza VaccineCompleted 03/02/2025, 08/14/2024Pneumococcal Vaccine: Pediatrics (0 to 5 Years) and At- Risk Patients (6 to 64 Years)Aged OutNo longer eligible based on patient's age to complete this topic Procedures Procedure NamePriorityDate/TimeAssociated DiagnosisCommentsALL BASIC METABOLIC DYXWJSuxvrrn37/10/2025 10:25 AM EST HMHP LIVER LUVKSAsfxsan26/10/2025 10:25 AM EST ALL TYPE AND ACNBZCYbccwic06/10/2025 10:25 AM EST CCF FWIEVbmwmcb08/10/2025 10:25 AM EST SRMCOH PROTHROMBIN TIME INR W/O KJQGDxlynmr70/10/2025 10:25 AM EST ALL CBC WITH AUTO BVORPyalvkg85/10/2025 10:25 AM EST IGP,APTIMA HPV,AGE SFNMFkucdzj15/21/2025 10:29 AM EDT PAP TEST, ELXXVIOAEqcrett33/21/2025 12:00 AM EDTPOCT , URINERoutine 03/12/2025 9:44 AM EDT Pre-op examination Menorrhagia with regular cycle Pelvic pain in female Dysmenorrhea Dyspareunia, female HGSIL (high grade squamous intraepithelial lesion) on Pap smear of cervix THIN PREP (R) TIS W/RFL IF ASCUS HPV IZBWVjdyiux05/07/2020 12:00 PM EST from Last 3 Months or Most Recently Relevant to Health Maintenance Results * SRMCOH PROTHROMBIN TIME INR W/O COUM (04/02/2025 10:25 AM EST)ComponentValue Ref RangeTest MethodAnalysis TimePerformed AtPathologist SignaturePROTHROMBIN TIME10.39.0 - 11.6 secTBHTBH INR0.97TBHComment: DESIRED INR: 2.0-3.0 CONDITIONS NOT LISTED BELOW 2.5-3.5 FOR PROSTHETIC HEART VALVE REPLACEMENT 2.5-3.5 RECURRENT THROMBOSIS Specimen (Source)Anatomical Location / LateralityCollection Method / Volume Collection TimeReceived Time04/02/2025 10:25 AM EST04/02/2025 10:26 AM EST Narrative CLINISYNC - 04/02/2025 11:06 AM EST Authorizing ProviderResult TypeResult StatusCorey Christian DOCLINISYNCFinal Result Performing OrganizationAddressCity/State/ZIP CodePhone Number SUZANNE TB * (ABNORMAL) [facility] LIVER PANEL (04/02/2025 10:25 AM EST)ComponentValueRef Range Test MethodAnalysis TimePerformed AtPathologist SignatureBILIRUBIN TOTAL0.20.2 - 1.0 mg/dLTBHBILIRUBIN DIRECT<0.10.0 - 0.2 mg/dLTBHASPARTATE AMINO WMSRNMICOXE82(L)15 - 37 U/LTBHALANINE YUTJDKUOJYCDIVWK7551 - 59 U/LTBHALKALINE MEPLETIWVZP6377 - 116 U/LTBHTOTAL PROTEIN6.86.4 - 8.2 g/dLTBHALBUMIN LEVEL3.6 3.4 - 5.0 g/dLTBHGLOBULIN3.2g/dLTBHALBUMIN GLOBULIN RATIO1.1TBHSpecimen (Source)Anatomical Location / LateralityCollection Method / VolumeCollection TimeReceived Time04/02/2025 10:25 AM EST04/02/2025 10:26 AM EST Narrative CLINISYNC - 04/02/2025 11:42 AM EST Authorizing ProviderResult TypeResult StatusCorey Christian DOCLINISYNCFinal Result Performing OrganizationAddressty/State/ZIP CodePhone Number YARIDC TB * [facility] APTT (04/02/2025 10:25 AM EST)ComponentValueRef RangeTest MethodAnalysis TimePerformed AtPathologist SignaturePARTIAL THROMBOPLASTIN TIME28.822.3 - 36.2 secTBHSpecimen (Source)Anatomical Location / LateralityCollection Method / VolumeCollection TimeReceived Time04/02/2025 10:25 AM EST04/02/2025 10:26 AM EST Narrative CLINISYNC - 04/02/2025 11:06 AM EST Authorizing ProviderResult TypeResult StatusCorey Christian DOCLINISYNCFinal Result Performing OrganizationAddressCity/State/ZIP CodePhone Number [facility] * ALL TYPE AND SCREEN (04/02/2025 10:25 AM EST)ComponentValueRef RangeTest MethodAnalysis TimePerformed AtPathologist SignatureBLOOD TYPEA PositiveTBH ANTIBODY SCREENNEGATIVETBHSpecimen (Source)Anatomical Location / Laterality Collection Method / VolumeCollection TimeReceived Time04/02/2025 10:25 AM EST 04/02/2025 10:26 AM EST Narrative CLINISYNC - 04/02/2025 11:18 AM EST [facility] , ?? Authorizing ProviderResult TypeResult StatusCorey Christian DOCLINISYNCFinal Result Performing OrganizationAddressCity/State/ZIP CodePhone Number [facility] * ALL CBC WITH AUTO DIFF (04/02/2025 10:25 AM EST)ComponentValueRef RangeTest MethodAnalysis TimePerformed AtPathologist SignatureTBH WBC5.74.0 - 11.0 10 3/uLTBHTBH RBC4.644.20 - 5.40 10 6/uLTBHTBH HGB13.612.0 - 16.0 g/dLTBHTBH HCT 41.436.0 - 48.0 %TBHTBH MCV89.281.0 - 99.0 fLTBHTBH MCH29.326.7 - 34.0 pgTBH TBH MCHC32.929.9 - 35.2 g/dLTBHTBH RDW12.511.0 - 15.0 %TBHTBH LJK031204 - 450 10 3/uLTBHTBH MPV11.09.5 - 13.5 fLTBHNEUTROPHILS PERCENT AUTO60.643.0 - 75.0 % TBHLYMPHOCYTES PERCENT AUTO29.920.5 - 60.0 %TBHMONOCYTES PERCENT AUTO6.91.7 - 12.0 %TBHTBH EO %1.90.9 - 7.0 %TBHBASOPHILS PERCENT AUTO0.50.2 - 2.0 %TBH IMMATURE GRANULOCYTES PCT AUTO0.20.0 - 0.5 %TBHNEUTROPHILS ABSOLUTE AUTO3.51.4 - 6.5 10 3/uLTBHLYMPHOCYTES ABSOLUTE AUTO1.71.2 - 3.8 10 3/uLTBHMONOCYTES ABSOLUTE AUTO0.40.3 - 0.8 10 3/uLTBHTBH EO #0.10.0 - 0.7 10 3/uLTBHBASOPHILS ABSOLUTE AUTO0.00.0 - 0.1 10 3/uLTBHIMMATURE GRANULOCYTES ABS AUTO0.010.00 - 0.03 10 3/uLTBHSpecimen (Source)Anatomical Location / LateralityCollection Method / VolumeCollection TimeReceived Time04/02/2025 10:25 AM EST04/02/2025 10:26 AM EST Narrative CLIN[facility]YNC - 04/02/2025 10:42 AM EST Authorizing ProviderResult TypeResult StatusCorey Christian DOCLINISYNCFinal Result Performing OrganizationAddressCity/State/ZIP CodePhone Number [facility] * ALL BASIC METABOLIC PANEL (04/02/2025 10:25 AM EST)ComponentValueRef RangeTest MethodAnalysis TimePerformed AtPathologist KhrvqarfkLGOTQU659053 - 145 mmol/L TBHPOTASSIUM3.63.5 - 5.1 mmol/USDKTDEUNFFL05222 - 107 mmol/LTBHCARBON DIOXIDE 27.821.0 - 32.0 mmol/LTBHANION GAP10.1RORMYZPSSU9564 - 106 mg/dLTBHBLOOD UREA QUFSZOJY45.07.0 - 18.0 mg/dLTBHCREATININE0.780.55 - 1.02 mg/dLTBHTBH EGFR-AF ANGOLAN>60>=60 mL/min/1.73m 2TBHTBH EGFR-NON AF ANGOLAN>60>=60 mL/min/1.73m 2TBHBUN CREATININE RATIO15.8LEHGSTHQZX7.98.5 - 10.1 mg/dLTBHSpecimen (Source) Anatomical Location / LateralityCollection Method / VolumeCollection Time Received Time04/02/2025 10:25 AM EST04/02/2025 10:26 AM EST Narrative [facility] - 04/02/2025 11:42 AM EST Authorizing ProviderResult TypeResult StatusCorey Christian DOCLINISYNCFinal Result Performing OrganizationAddressCity/State/ZIP CodePhone Number CLINISYNC TBH * (ABNORMAL) IGP,APTIMA HPV,AGE GDLN (03/13/2025 10:29 [...] at: 01 =G ?[facility] [address] ?? [address] [place] ??[phone] ?? Wendy Kumar MD, IGP, APTIMA HPV, RFX 16/18,45Note.TBHComment: ?? TESTS ? RESULT ??FLAG ??UNITS ?REF RANGE ??LAB DIAGNOSIS: ?02 ?? NEGATIVE FOR INTRAEPITHELIAL LESION OR MALIGNANCY. ?? REACTIVE CELLULAR CHANGES AND/OR REPAIR ARE PRESENT. Specimen adequacy: ?02 ?? Satisfactory for evaluation. ??Endocervical and/or squamous metaplastic ?? cells (endocervical component) are present. Performed by: ? 02 ?? Radha Lake, Route Clerk (ASCP) Electronically si... ?02 ?? Pedro Padilla [...] pap test was interpreted ?? using the [employer](R[employer] Genius(TM) Cervical Algorithm whole ?? slide imaging system. HPV Genotype Reflex ?? Note ?02 ?? Criteria met, see HPV Genotype results. ?FLAG LEGEND: ?L-Low Normal,H-High Normal,LL-Alert Low,HH-Alert High <-Panic Low,>-Panic High,A-Abnormal,AA-Critical Abnormal Performed at: 02 WB ?[facility] [place] ?? [address] [place], [place] ??[phone] ?? Wendy Kumar MD, HPV APTIMAPositive(A)NegativeTBHComment: This nucleic acid amplification test detects fourteen high- risk HPV types (16,18,31,33,35,39,45,51,52,56,58,59,66,68) without differentiation. HPV GENOTYPE 16NegativeNegativeTBHHPV GENOTYPE 18,45Positive(A)NegativeTBH Comment: Performed at: ??=G - [facility] [address] [place], [place] ??[phone] Supervisor [employer]: Wendy Kumar MD, Phone: ??[phone] Performed at: ??WB - [facility] [address] [place], [place] ??[phone] Supervisor [employer]: Wendy Kumar MD, Phone: ??[phone] Specimen (Source)Anatomical Location / LateralityCollection Method / [...] Location / LateralityCollection Method / VolumeCollection TimeReceived RiipFjwvx83/20/2025 9:44 AM EDT Narrative Authorizing ProviderResult TypeResult [...] DateEnd Date Warren Prieto DO [address] [place] [address] PCP - GeneralFamily Medicine09/29/22
--- OUTSIDE RECORDS SUMMARY | 2025-04-11 06:01 | XMS_ITS | Clinical Summary ---
Author Organization [facility] Address [address] [place] [address] Phone Care Team Providers Care Service Representative Name Role Phone Unavailable Primary Care Provider Unavailabl e Social History Tobacco UseTypesPacks/DayYears UsedDateSmoking Tobacco: Never Assessed CommentsUnknownSex and Gender InformationValueDate RecordedSex Assigned at Not on fileLegal JwfBkjyco66/26/2022 6:29 PM ESTGender IdentityNot on fileSexual OrientationNot on file Plan of Treatment Not on file
--- OUTSIDE RECORDS SUMMARY | 2025-04-11 06:01 | XMS_ITS | Clinical Summary ---
Author Organization [facility] Address [address], [address] [place] [address] Care Team Providers Care Art Librarian Name Role Phone MadieWarren archer Primary Care Provider [phone] Allergies Active AllergyReactionsCriticalityNoted DateCommentsLevofloxacin In D5w 08/09/2013 Medications MedicationSigDispense QuantityRefillsLast FilledStart DateEnd DateStatus ibuprofen (ADVIL;MOTRIN) 200 MG tablet Take 200 mg by mouth every 6 hours as needed for Pain.Active Active Problems ProblemNoted DateDiagnosed DateDistal radius curmhxxx62/10/2014 Social History Tobacco UseTypesPacks/DayYears UsedDateSmoking Tobacco: FormerAlcohol Use Standard Drinks/WeekCommentsNo0 (1 standard drink = 0.6 oz pure alcohol) CommentsNoSex and Gender InformationValueDate RecordedSex Assigned at BirthNot on fileLegal QfpExamms34/10/2013 10:16 AM ESTGender IdentityNot on fileSexual OrientationNot on file Last Filed Vital Signs Vital SignReadingTime TakenCommentsBlood Gswgqdff230/7404 2:47 PM EDT Ocjtz822708/09/2013 11:15 AM OLUDhumbrbmzyb65.6 ??C (97.9 ??F)08/09/2013 11:15 AM EDTRespiratory Nyxq488408/09/2013 11:15 AM EDTOxygen Lpawxbqokq25%08/09/2013 11:15 AM EDTInhaled Oxygen Concentration--Qlhgiz33 kg (130 lb 1.1 oz)09/14/2013 2:54 PM NNEZnuhwl859 cm (5' 4.96 )09/14/2013 2:54 PM EDTBody Mass Index21.67 09/14/2013 2:54 PM EDT Plan of Treatment Not on file Care Teams Team MemberRelationshipSpecialtyStart DateEnd Date Warren Prieto DO [address] [place] [address] [facility] - General08/09/13
--- OUTSIDE RECORDS SUMMARY | 2025-04-11 06:03 | XMS_ITS | Encounter Summary ---
Author Organization [facility] Address [address] [place] [address] Care Team Providers Care Retort Press Operator Name Role Phone Warren Prieto DO Primary Care Provider [phone] Encounter Details DateTypeDepartmentCare Team (Latest Contact Info)Xmdsgrrkhaz12/10/2025linisync Result Encounter [facility] External Department Unsolicited Jaxson Gonzales DO [address] [place], [place] [id number] Social History Tobacco UseTypesPacks/DayYears UsedDateSmoking Tobacco: FormerCigarettes Smokeless Tobacco: NeverAlcohol UseStandard Drinks/WeekCommentsNever0 (1 standard drink = 0.6 oz pure alcohol)Caffeine: > 4 cups/day sodaPHQ-2AnswerDate RecordedPatient Health Questionnaire-2 Ivqgf592CommentsUnknown Sex and Gender InformationValueDate RecordedSex Assigned at BirthNot on file Legal ZaqXqtdab50/15/2023 6:48 PM EDTGender IdentityNot on fileSexual OrientationNot on filedocumented as of this encounter Plan of Treatment DateTypeDepartmentCare Team (Latest Contact Info)Hfaxfoijxfx73/26/2026 10:00 AM EDTProcedure Visit [facility] [address] [place] [address] Jaxson Gonzales DO [address] [place], [place] [address] documented as of this encounter Procedures Procedure NamePriorityDate/TimeAssociated DiagnosisCommentsSRMCOH PROTHROMBIN TIME INR W/O SXRCTxzfojz69/10/2025 10:25 AM EST HMHP LIVER GACNORonucyo04/10/2025 10:25 AM EST CCF XGFVOcxhzsn71/10/2025 10:25 AM EST ALL TYPE AND GHOFRXDundnqw50/10/2025 10:25 AM EST ALL CBC WITH AUTO BOVYTsbaydx48/10/2025 10:25 AM EST ALL BASIC METABOLIC APROMJrcgubp59/10/2025 10:25 AM EST documented in this encounter Results * ALL BASIC METABOLIC PANEL (04/02/2025 10:25 AM EST)ComponentValueRef RangeTest MethodAnalysis TimePerformed AtPathologist BvyohwwsbWMJNYG067336 - 145 mmol/L TBHPOTASSIUM3.63.5 - 5.1 mmol/VDORAXAISTTX76244 - 107 mmol/LTBHCARBON DIOXIDE 27.821.0 - 32.0 mmol/LTBHANION GAP10.1ZDUUQTGFXK6762 - 106 mg/dLTBHBLOOD UREA XXEXHYFI33.07.0 - 18.0 mg/dLTBHCREATININE0.780.55 - 1.02 mg/dLTBHTBH EGFR-AF MALIAN>60>=60 mL/min/1.73m 2TBHTBH EGFR-NON AF MALIAN>60>=60 mL/min/1.73m 2TBHBUN CREATININE RATIO15.7GMAYQTIBWK5.98.5 - 10.1 mg/dLTBHSpecimen (Source) Anatomical Location / LateralityCollection Method / VolumeCollection Time Received Time04/02/2025 10:25 AM EST04/02/2025 10:26 AM EST Narrative CLINISYNC - 04/02/2025 11:42 AM EST Authorizing ProviderResult TypeResult StatusCorey Christian DOCLINISYNCFinal Result Performing OrganizationAddressCity/State/ZIP CodePhone Number SUZANNE BECKWITH * (ABNORMAL) [facility] LIVER PANEL (04/02/2025 10:25 AM EST)ComponentValueRef Range Test MethodAnalysis TimePerformed AtPathologist SignatureBILIRUBIN TOTAL0.20.2 - 1.0 mg/dLTBHBILIRUBIN DIRECT<0.10.0 - 0.2 mg/dLTBHASPARTATE AMINO GKAFKVGMASW80(L)15 - 37 U/LTBHALANINE FSJLHHVOTNTGFRIG0966 - 59 U/LTBHALKALINE HOFMBZIUEFC6349 - 116 U/LTBHTOTAL PROTEIN6.86.4 - 8.2 g/dLTBHALBUMIN LEVEL3.6 3.4 - 5.0 g/dLTBHGLOBULIN3.2g/dLTBHALBUMIN GLOBULIN RATIO1.1TBHSpecimen (Source)Anatomical Location / LateralityCollection Method / VolumeCollection TimeReceived Time04/02/2025 10:25 AM EST04/02/2025 10:26 AM EST Narrative CLINISYNC - 04/02/2025 11:42 AM EST Authorizing ProviderResult TypeResult StatusCorey Christian DOCLINISYNCFinal Result Performing OrganizationAddressCity/State/ZIP CodePhone Number SUZANNE [facility] * ALL TYPE AND SCREEN (04/02/2025 10:25 AM EST)ComponentValueRef RangeTest MethodAnalysis TimePerformed AtPathologist SignatureBLOOD TYPEA PositiveTBH ANTIBODY SCREENNEGATIVETBHSpecimen (Source)Anatomical Location / Laterality Collection Method / VolumeCollection TimeReceived Time04/02/2025 10:25 AM EST 04/02/2025 10:26 AM EST Narrative CLINISYNC - 04/02/2025 11:18 AM EST [facility] , ?? Authorizing ProviderResult TypeResult StatusCorey Christian DOCLINISYNCFinal Result Performing OrganizationAddressCity/State/ZIP CodePhone Number [facility] * CCF APTT (04/02/2025 10:25 AM EST)ComponentValueRef RangeTest MethodAnalysis TimePerformed AtPathologist SignaturePARTIAL THROMBOPLASTIN TIME28.822.3 - 36.2 secTBHSpecimen (Source)Anatomical Location / LateralityCollection Method / VolumeCollection TimeReceived Time04/02/2025 10:25 AM EST04/02/2025 10:26 AM EST Narrative CLINISYNC - 04/02/2025 11:06 AM EST Authorizing ProviderResult TypeResult StatusCorey Christian DOCLINISYNCFinal Result Performing OrganizationAddressCity/State/ZIP CodePhone Number [facility] * SRMCOH PROTHROMBIN TIME INR W/O COUM [...] Christian DOCLINISYNCFinal Result Performing OrganizationAddressCity/State/ZIP CodePhone Number [facility] * ALL CBC WITH AUTO DIFF (04/02/2025 10:25 AM EST)ComponentValueRef RangeTest MethodAnalysis TimePerformed AtPathologist SignatureTBH WBC5.74.0 - 11.0 10 3/uLTBHTBH RBC4.644.20 - 5.40 10 6/uLTBHTBH HGB13.612.0 - 16.0 g/dLTBHTBH HCT 41.436.0 - 48.0 %TBHTBH MCV89.281.0 - 99.0 fLTBHTBH MCH29.326.7 - 34.0 pgTBH TBH MCHC32.929.9 - 35.2 g/dLTBHTBH RDW12.511.0 - 15.0 %TBHTBH YQA850469 - 450 10 3/uLTBHTBH MPV11.09.5 - 13.5 [...] Christian DOCLINISYNCFinal Result Performing OrganizationAddressCity/State/ZIP CodePhone Number [facility] documented in this encounter Visit Diagnoses Not on filedocumented in this encounter Care Teams Team MemberRelationshipSpecialtyStart DateEnd Date Warren Prieto DO [address] [facility] [address] [place] [address] PCP - GeneralFamily Medicine09/29/22documented as of this encounter
--- OUTSIDE RECORDS SUMMARY | 2025-04-11 06:03 | XMS_ITS | Encounter Summary ---
Author Organization [facility] Address [address] [place] [address] Care Team Providers Care Supervisor Coremaker Name Role Phone Warren Prieto DO Primary Care Provider [phone] Encounter Details DateTypeDepartmentCare Team (Latest Contact Info)Opnjnjpabyr37/05/2025Orders Only [facility] K[facility] [address] [place] [address] Beatriz De Los Santos LPN [address] [facility] [place] [place] [address] Social History Tobacco UseTypesPacks/DayYears UsedDateSmoking Tobacco: FormerCigarettes Smokeless Tobacco: NeverAlcohol UseStandard Drinks/WeekCommentsNever0 (1 standard drink = 0.6 oz pure alcohol)Caffeine: > 4 cups/day sodaPHQ-2AnswerDate RecordedPatient Health Questionnaire-2 Sdknd920CommentsUnknown Sex and Gender InformationValueDate RecordedSex Assigned at BirthNot on file Legal NsoXoawhw76/15/2023 6:48 PM EDTGender IdentityNot on fileSexual OrientationNot on filedocumented as of this encounter Plan of Treatment DateTypeDepartmentCare Team (Latest Contact Info)Npwrwklhwdk39/26/2026 10:00 AM EDTProcedure Visit [facility] KWONG [address] [place] [address] Jaxson Gonzales DO [address] [facility] [place] [address] documented as of this encounter Procedures Procedure NamePriorityDate/TimeAssociated DiagnosisCommentsPAP TEST, EXTERNAL Iwycdrm1003/13/2025 12:00 AM EDTdocumented in this encounter Results * (ABNORMAL) PAP TEST, EXTERNAL (03/13/2025 12:00 AM EDT) Narrative Authorizing ProviderResult TypeResult StatusFazio Nurse [facility] ObLAB CYTOLOGY ORDERABLESFinal ResultPerforming OrganizationAddressCity/State/ZIP CodePhone Number EXTERNAL LAB documented in this encounter Visit Diagnoses Not on filedocumented in this encounter Care Teams Team MemberRelationshipSpecialtyStart DateEnd Date Warren Prieto DO [address] [place] [address] PCP - GeneralFamily Medicine09/29/22documented as of this encounter
--- OUTSIDE RECORDS SUMMARY | 2025-04-11 06:03 | XMS_ITS | Encounter Summary ---
Author Organization [facility] Address [address] [place] [address] Care Team Providers Care Civil Division Deputy Sheriff Name Role Phone Warren Prieto DO Primary Care Provider [phone] Encounter Details DateTypeDepartmentCare Team (Latest Contact Info)Bykwtejmvhu33/11/2025Telephone [facility] [address] [place] [address] [place] [address] Adia Murphy MA Social History Tobacco UseTypesPacks/DayYears UsedDateSmoking Tobacco: FormerCigarettes Smokeless Tobacco: NeverAlcohol UseStandard Drinks/WeekCommentsNever0 (1 standard drink = 0.6 oz pure alcohol)Caffeine: > 4 cups/day sodaPHQ-2AnswerDate RecordedPatient Health Questionnaire-2 Uriys053CommentsUnknown Sex and Gender InformationValueDate RecordedSex Assigned at BirthNot on file Legal HhaNzkohg12/15/2023 6:48 PM EDTGender IdentityNot on fileSexual OrientationNot on filedocumented as of this encounter Miscellaneous Notes * Telephone Encounter - Adia Murphy MA - 04/03/2025 1:42 PM EST Pt notified of results and recommendations for 6 month pap smear after hysterectomy. PVU and will call back to schedule at a later time. documented in this encounter Plan of Treatment DateTypeDepartmentCare Team (Latest Contact Info)Fpydynrnunl61/26/2026 10:00 AM EDTProcedure Visit [facility] [place] [facility] [address] [facility] [place] [id number] Jaxson Gonzales DO [address] [facility] [place] [address] documented as of this encounter Visit Diagnoses Not on filedocumented in this encounter Care Teams Team MemberRelationshipSpecialtyStart DateEnd Date Warren Prieto DO [address] [facility] [address] [place] [address] PCP - GeneralFamily Medicine09/29/22documented as of this encounter
[2025-04-11 06:07] LABS: Hematocrit 39.1 % (36.0-48.0); Hemoglobin 13.3 g/dL (12.0-16.0); Immature Granulocytes Abs Auto 0.01 10^3/uL (0.00-0.03); Immature Granulocytes Pct Auto 0.2 % (0.0-0.5); Lymphocytes Absolute Auto 1.3 10^3/uL (1.2-3.8); Mean Corpuscular HGB Conc 34.0 g/dL (29.9-35.2); Mean Corpuscular Hemoglobin 30.5 pg (26.7-34.0); Mean Corpuscular Volume 89.7 fL (81.0-99.0); Platelet Count 176 10^3/uL (150-450); Red Blood Count 4.36 10^6/uL (4.20-5.40); White Blood Count 4.4 10^3/uL (4.0-11.0)
[2025-04-11] MEDS: CEFAZOLIN SODIUM 2 GM/50 ML D5W PREMIX IV (07:40)
--- NOTE | 2025-04-11 08:27 | P.ON_ITS ---
Brief Operative Note Date of procedure: 04/11/25 Pre-op diagnosis general: menorrhagia, dysmenorrhea, dyspareunia, pelvic pain Post-op diagnosis: same as pre-op Procedure: NAME OF PROCEDURE: ? Robotic assisted laparoscopic hysterectomy with cystoscopy, bilateral salpingectomy PROCEDURE:? The patient was taken back to the operating room, where she was prepped and draped in the normal sterile fashion after being placed in the dorsal lithotomy position.? Patient?s anesthesia was found to be adequate.? Surgical timeout was performed using two patient identifiers.? SCDs were on and in place.? Two grams of Ancef were given prior to the surgery.? Sterile Becker catheter was inserted.? Standard size VCare was secured to the uterine cervix and the surgeon changed gloves.? Attention then was turned to the patient's abdomen, where a supraumbilical incision was then made.? Two S retractors were used to identify the patient?s fascia.? The fascia was then tented up using Elvia clamps and the patient?s fascia was incised sharply.? Patient?s abdomen was identified and entered bluntly.? The patient had the trocar placed and a pneumoperitoneum was obtained.? Approximately 4 liters of CO2 gas was used.? The camera was then placed through the trocar.? At this time, two robot trocars were placed in the patient?s left and right side, two hand widths from the midline, and this was placed under direct visualization.? The patient?s tube on the right side was tented up and the vessel sealer was then used to come across the mesosalpinx, and this was carried down to the uterine ovarian ligament.? The vessel sealer was carried down serially to the broad ligament, to the area of the bladder flap, which was then created anteriorly, and the uterine arteries were skeletonized and sealed using the vessel sealer.? The colpotomy was made using the monopolar cautery on cut, and this was carried circumferentially, posteriorly to anteriorly, until the uterus was amputated.? The specimen was then removed intact through the vagina, without difficulty.? The vagina was then closed using two running V-Loc in a non-lock fashion.? The robot was undocked.? The abdomen was desufflated.? The skin defects were closed using 4-0 Vicryl.? Please note, the fascia was closed using 0 Vicryl.? Sponge, lap and needle counts were correct x2.? Patient was taken to recovery room in stable condition.? The patient was awakened by Anesthesia first.? Patient tolerated procedure well.??Please note left ovarian cystectomy was performed using the vessel sealer Anesthesia: CIERRA Surgeon: Jaxson [facility] Administrator: Jenni Rivas Estimated blood loss (mL): 100 Pathology: other (uterus, cervix and tubes) Condition: stable Disposition: PACU Urinary Catheter Management Urinary Catheter Management Urethral: Cath placed during this visit: no
[2025-04-11] MEDS: CEFAZOLIN SODIUM/DEXTROSE,ISO 2 GM/50 ML PIGGYBACK IV (13:01)
[2025-04-11] MEDS: IBUPROFEN 400 MG TABLET 800 MG PO (13:28)
[2025-04-11 16:01] LABS: Hematocrit 41.5 % (36.0-48.0); Hemoglobin 13.9 g/dL (12.0-16.0); Mean Corpuscular HGB Conc 33.5 g/dL (29.9-35.2); Mean Corpuscular Hemoglobin 30.5 pg (26.7-34.0); Mean Corpuscular Volume 91.0 fL (81.0-99.0); Platelet Count 177 10^3/uL (150-450); Red Blood Count 4.56 10^6/uL (4.20-5.40); White Blood Count 9.0 10^3/uL (4.0-11.0)
[2025-04-11 16:22] LABS: Basophils Abs Manual 0.00 10^3/uL (0.00-0.10); Basophils Percent Manual 0.0 % (0.2-2.0); Eosinophils Absolute Manual 0.00 10^3/uL (0.00-0.70); Eosinophils Percent Manual 0.0 % (0.9-7.0); Lymphocytes Absolute Manual 0.18 10^3/uL (1.20-3.80); Lymphocytes Percent Manual 2.0 % (20.5-60.0); Monocytes Absolute Manual 0.18 10^3/uL (0.30-0.80); Monocytes Percent Manual 2.0 % (1.7-12.0); Segmented Neut Absolute Manual 8.64 10^3/uL (1.4-6.5); Segmented Neutrophils % Manual 96.0 (43.0-75.0)
== END 2025-04-11 16:45 | disposition home or self-care (01) ==
LOC: SURGOUT 08:26 → MS 11:05
PROVIDERS: PCP Family Medicine; Visit Provider Obstetrics & Gynecology
PROC: (CPT 840; principal; 2025-04-11 07:30)
DX: N92.0 Excessive and frequent menstruation with regular cycle (principal); N94.6 Dysmenorrhea, unspecified; N94.10 Unspecified dyspareunia; R10.30 Lower abdominal pain, unspecified; R87.613 High grade squamous intraepithelial lesion on cytologic smear of cervix (HGSIL); N83.8 Other noninflammatory disorders of ovary, fallopian tube and broad ligament; Z90.49 Acquired absence of other specified parts of digestive tract; Z98.51 Tubal ligation status; Z87.891 Personal history of nicotine dependence
CPT/HCPCS: 58571; 36415; 84702; 85007; 85025; 85027; 88309; 88341; 88342; J0131; J0690; J1100; J1171; J1885; J2003; J2250; J2405; J2704; J3010

== ENCOUNTER 2025-04-14 13:11 | Emergency (ER) | payer MEDICAID, SELFPAY ==
--- OUTSIDE RECORDS SUMMARY | 2024-12-28 03:04 | XMS_ITS | Continuity of Care Document ---
Author Organization [facility] Address [address] [place] [address] Phone Care Team Providers Care Industrial Tech Instructor Name Role Phone Mitzi FERMIN Genaro Unavailable Unavailable Allergies, Adverse Reactions, Alerts Substance Reaction Status Criticality levofloxacin HivesHives Active No Information Problems Condition Type Effective Dates (start - stop) Clini staci Status Comments No Known Problems Procedures Procedure Date Periodontal Scalin And Root Planning 1 T o 3 Teeth Periodontal Scalin And Root Planning 1 T o 3 Teeth Topical Application Of Fluoride Varnish Nutrit Couns For Control Of [place] Dis Dec Oral Hygiene Instruction High Risk Intraoral-periapical 1st Film Oral Hygiene Instruction Limited Oral Eval Periodontal Scalin And Root Planning 1 T o 3 Teeth Periodontal Scalin And Root Planning 1 T o 3 Teeth Nutrit Couns For Control Of [place] Dis Apr Oral Hygiene Instruction Nutrit Couns For Control Of [place] Dis Mar Resin Composite 2s; Posterior 4 Bitewings Four Films Comprehensive Perio Eval Perio Charting Intraoral-periapical 1st Film 4 Nutrit Couns For Control Of [place] Dis Dec Oral Hygiene Instruction Oral Hygiene Instruction Resin Composite 2s; Posterior 3 Intraoral-periapical 1st Film 3 Oral Hygiene Instruction Resin Two Surfaces Anterior Resin Three Surfaces Anterior 2 Intraoral-complete Series (bw) Comp Oral Eval New/estab Patient 2021 High Risk Nutrit Couns For Control Of [place] Dis Mar NEW FP MEDICAID OFFICE/OUTPATIENT VISIT, EST OFFICE/OUTPATIENT VISIT, EST Levonorgestrel iu contracept PREV VISIT, EST, AGE 18-39 URINE TEST OFFICE/OUTPATIENT VISIT, NEW Advance Directives Directive Yes / No Effective Date File Name No Information Encounters Encounter Description Practice Location Reason(s) For Visit Diagnoses Date Provider Providers Copied on Encounter [facility], [address] [place] [address], [id number], tel:[phone] Dental Clinic SRP (chief complaint) Encounter for screening for dental disorders 5 Charlesandreas Jamesal. [address] [place], [place], [id number], [place]. tel:[phone] [facility], [address] [place] [address], [id number], tel:[phone] Dental Clinic dl (chief complaint) Body mass index [BMI] 32.0-32.9, adultEncounter for screening for dental disorders 5 Charlesandreas CHRISTENSEN Genaro. [address] [place], [place], [id number], [place]. tel:[phone] [facility], [address] [place] [address], [id number], [place] tel:[phone] [facility] Dental Clinic SRP (chief complaint) Body mass index [BMI] 35.0-35.9, adultEncounter for screening for dental disorders 4 Mitzi Jamesal. [address] [place], [place], [id number], [place]. tel:[phone] [facility], [address] [place], [place], [id number], [place] tel:[phone] Dental Clinic fill (chief complaint) Encounter for screening for dental disorders 4 Mitzi Lam. [address] [place], [place], [id number], [place]. tel:[phone] [facility], [address] [place], [place], [id number], [place] tel:[phone] Dental Clinic PE (chief complaint) Body mass index [BMI] 34.0-34.9, adultEncounter for screening for dental disorders 4 Mitzi Lam. [address] [place], [place], [id number], [place]. tel:[phone] [facility], [address] [place], [place], [id number], [place] tel:[phone] Dental Clinic fill (chief complaint) Encounter for screening for dental disorders 3 Mitzi Lam. [address] [place], [place], [id number], [place]. tel:[phone] [facility], [address] [place], [place], [id number], [place] tel:[phone] Dental Clinic diamante (chief complaint) Encounter for screening for dental disorders 2 Mitzi Lam. [address] [place], [place], [id number], [place]. tel:[phone] [facility], [address] [place], [place], [id number], [place] tel:[phone] Dental Clinic DN (chief complaint) Encounter for screening for dental disorders 2 Mitzi Lam. [address] [place], [place], [id number], [place]. tel:[phone] [facility], [address] [place] [address], [id number], [place] tel:[phone] [facility] No Information 2 Lamp Avril. [address] [place], [place], [id number], [place]. tel:[phone] OFFICE/OUTPAT IENT VISIT, [facility], [address] [place], [place], [id number], [place] tel:[phone] [facility] No Information 1 Lamp Avril. [address] [place], [place], [id number], [place]. tel:[phone] OFFICE/OUTPAT IENT VISIT, [facility], [address] [place], [place], [id number], [place] tel:[phone] [facility] No Information 1 Lamp Avril. [address] [place], [place], [id number], [place]. tel:[phone] PREV VISIT, [facility], AGE 18-39 [facility], [address] [place], [place], [id number], [place] tel:[phone] [facility] No Information 1 Leigh Mackenzie. [address] [place], [place], [id number], [place]. tel:[phone] OFFICE/OUTPAT IENT VISIT, [facility], [address] [place], [place], [id number], [place] tel:[phone] [facility] No Information 9 Kasi Conn. [address] [place], [place], [id number]. tel:[phone] Family History Family Member Type Diagnosis Age At Onset No Information Payers Payer name Insurance type Covered democrat ID Vince holguin(luz) Sheyla [place] Medicaid [facility] [employer] [id number] [id number] D Medicaid [facility] [id number] Social History Type Description Quantity Date Captured Comments Alcohol Use Details Unknown Caffeine Use Details Unknown Tobacco Use Status Current non-smoker Smoking Status Never smoker Sex Female Sexual Orientation Straight or heterosexual Gender Identity Female Vital Signs Date / Time: Height Weight BMI Pulse Rate Blood Pressure Temperature Respiratory Rate Body Surface Area Head Circumference Head Circ. Percentile Wt./All. Percentile BMI percentile Pulse Ox Inhaled Ox 1:46 PM 71 /min 121/86 mm[Hg] 98.30 F Chief Complaint And Reason For Visit From encounter dated '12/28/2024 08:04'. SRP (chief complaint). Description: SRP Reason For Referral Reason For Referral No Information Plan Of Treatment Date Type Action Status Goal RLP. Due on due Goal Unhealthy drug use screening . Due on due Goal Influenza vaccine. Due on Au due Goal Tdap. Due on due Goal Hepatitis C screening. Due o n due Goal PRAPARE ASSESSMENT. Due on A due Goal Depression screening. Due on due Goal HPV. Due on due Goal Tdap Vaccine. Due on 2024 due Goal RLP. Due on due Goal Tdap. Due on due Goal Depression screening. Due on due Goal Influenza vaccine. Due on Ma due Goal Hep A. Due on du e Goal Unhealthy drug use screening . Due on due Goal PRAPARE ASSESSMENT. Due on M due Goal Tdap Vaccine. Due on 2024 due Goal HPV. Due on due Goal Hepatitis C screening. Due o n due Goal Dietary management education , guidance, and counseling completed Goal Hep A. Due on du e Goal RLP. Due on due Goal Depression screening. Due on due Goal Hepatitis C screening. Due o n due Goal Unhealthy drug use screening . Due on due Goal Tdap Vaccine. Due on 2023 due Goal HPV. Due on due Goal PRAPARE ASSESSMENT. Due on D due Goal Influenza vaccine. Due on De due Goal Tdap. Due on due Goal Dietary management education , guidance, and counseling completed Goal Influenza vaccine. Due on due Goal Tdap Vaccine. Due on 2023 due Goal RLP. Due on due Goal Hepatitis C screening. Due o n due Goal Unhealthy drug use screening . Due on due Goal Depression screening. Due on due Goal HPV. Due on due Goal PRAPARE ASSESSMENT. Due on N due Goal Tdap. Due on due Goal HPV. Due on due Goal Tdap. Due on due Goal Depression screening. Due on due Goal Unhealthy drug use screening . Due on due Goal Tdap Vaccine. Due on 2023 due Goal RLP. Due on due Goal Hepatitis C screening. Due o n due Goal Influenza vaccine. Due on Au due Goal PRAPARE ASSESSMENT. Due on A due Goal Dietary management education , guidance, and counseling completed Goal Hepatitis C screening. Due o n due Goal Tdap. Due on due Goal HPV. Due on due Goal Influenza vaccine. Due on Oc due Goal PRAPARE ASSESSMENT. Due on O due Goal Tdap Vaccine. Due on 2022 due Goal Depression screening. Due on due Goal RLP. Due on due Goal Unhealthy drug use screening . Due on due Goal Tdap. Due on due Goal RLP. Due on due Goal Depression screening. Due on due Goal Influenza vaccine. Due on De due Goal PRAPARE ASSESSMENT. Due on D due Goal Influenza vaccine. Due on No due Goal Tdap. Due on due Goal Depression screening. Due on due Goal PRAPARE ASSESSMENT. Due on N due Goal RLP. Due on due Referral Ordered: Warren Prieto DO timeframe: 6 Months. (related to Body mass index [BMI] 34.0- 34.9, adult) [id number], [id number] History Of Present Illness Encounter Date Complaint History Of Prese nt Illness SRP SRP dl SRP SRP fill PE PE fill diamante diamante DN Functional Status Date Functional Assessmen t No Information Instructions Date Instruction Additional Infor mation Dietary management e ducation, guidance, and counseling Related to Body mass index [BMI] 32.0-32.9, adult Giving encouragement to exercise Related to Body mass index [BMI] 35.0-35.9, adult Dietary management e ducation, guidance, and counseling Related to Body mass index [BMI] 35.0-35.9, adult Dietary management e ducation, guidance, and counseling Related to Body mass index [BMI] 34.0-34.9, adult Giving encouragement to exercise Related to Body mass index [BMI] 34.0-34.9, adult Assessments Type Assessment Date assessment Encounter for screening for dent al disorders Patient Care Teams Name Effective Dates (start - stop) Status Members No Information
--- OUTSIDE RECORDS SUMMARY | 2025-04-11 19:37 | XMS_ITS | Continuity of Care Document ---
Author Organization [facility] Address [address] [place] [address] Phone Care Team Providers Care Ballroom Dancer Name Role Phone Tania Dove APRN Attending [...] Member Role/Relationship Status Dates Adeel QUINN DO [facility] Attending Provider Active Start: March 02, 2025 End: March 02, 2025 Visit Care Team Team Status: Inactive Member Role/Relationship Status Dates Jaxson Gonzales DO Attending Provider Active Start : March 12, 2025 End: March 12, 2025 Patient Care Team Team Status: Inactive Member Role/Relationship Status Dates Jaxson Gonzales DO Attending Provider Active Start : April 11, 2025 End: April 11, 2025 Chief Complaint and Reason for Visit Chief Complaint Admit Date Dysuria February 10, 2025 12:24pm R30.0 February 10, 2025 12:35pm Z23 March 02, 2025 9 :00am Unknown March 12, 2025 1 2:31pm Unknown April 11, 2025 9:37am Reason for Visit Admit Date Acute UTI February 10, 2025 12:24pm Allergies, Adverse Reactions, Alerts Allergen Type Severity Reaction Last Updated Verified Status levofloxacin Allergy Unknown Hives February 10, 2025 11:40a m Yes Active Social History Smoking Status Status Start Date End Date Date of Observa tion Ex-smoker (finding) February 10, 2025 12:42pm Observation Status Observation Response Date of Response Legal Sex Female (finding) Sex Assigned At [facility] 1990 Problems Active Problems Problem Diagnosis/Recorded Date Onset Date Status C omments COVID February 02, 2024 5:57pm Unknown Active Renal stoneSept2023 5:41pmUnknownActiveAcute UTISept2024 1:07pmUnknownActiveInactive/Resolved Problems Problem Diagnosis/Recorded Date Onset Date Status C omments Ureterolithiasis February 11, 2019 1:49pm Unknown Re solved Problem List clean-up per request of Phys. EHR Cmte Pharyngitis September 12, 2018 1:44pm Unknown Resolved Problem List clean-up per request of Phys. EHR Cmte Medications Medication Status Dose Units Route Directions Qty Days Refills S tart Date Stop Date End Date Reason(s) Instructions Adherence Nitrofurantoin Monohyd/M-Cryst (Macrobid) 100 mg capsule Active 100 MG PO Every 12 hours 10 5 0 February 13, 2025 11:00pm must administer with a meal/foodUnknownHydrocodone-Acetaminophen ([place]) 5-325 mg IqvbuiEmrhdqqrwcrr3FSDWXHOJWY 4-6 HOURS as needed for Rznp958YpothbsziFebruary 10, 2019 11:00pmSeptember 2023 5:33pmCalculus of ureter Calculus of ureterTamsulosin (Flomax) 0.4 mg capsuleDiscontinued0.5SCVNAvmry12 February 10, 2019 11:00pmSept2023 5:32pmOndansetron 4 mg Tablet,ZplzrshgzxswhiZfymovqxgssf0NVFIavgmi 6 to 8 hours as needed for Dyjgvc232 February 10, 2019 11:00pmSept2023 5:33pmNaproxen (Naprosyn) 500 mg TzkyeuZtxzeziaioct656HNDEB65U616Qjjptsuko 20th, 2019 11:00pmSept2023 5:33pmadminister with food or milkNirmatrelvir-Ritonavir (Paxlovid) 300 mg (150 mg x 2)-100 mg tablets,dose zuczFypjstkjlete9EU.UXBBDEY006Obrbtldqv 10th, 2024 11:00pmSept2023 5:58pmtake TWO 150 mg tablets of nirmatrelvir with ONE 100 mg tablet of ritonavir twice daily for 5 days PONirmatrelvir- Ritonavir (Paxlovid) 300 mg (150 mg x 2)-100 mg tablets,dose ehjlKmpxondnugef2AW .SJMORJU537Ryhmbcbmn 10th, 2024 11:00pmSept2024 11:41amtake TWO 150 mg tablets of nirmatrelvir with ONE 100 mg tablet of ritonavir twice daily for 5 days POSulfamethoxazole-Trimethoprim 800-160 mg xsppdvFqlkgw5JHRVUKuily 12 hours 1050Se2024 11:00pmUnknownPhenazopyridine (Pyridium) 200 mg tablet Cvnxac220VEWAMtwry times daily as needed for vnxm961HaycrlxvhFebruary 09, 2025 11:00pm Unknown Procedures Procedure Date Performed Status Urine Culture February 10, 2025 completed Relevant Diagnostic Tests and/or Laboratory Data Laboratory Results Test Collection Date/Time Result Date/Time Result Interpretation Reference Range Result Comment Performing Site Urine Color February 10, 2025 11:50am February 10 025 11:53am yellow Urine AppearanceSept2024 11:50amSept2024 11:53amcloudy Urine Specific GravitySept2024 11:50amSept2024 11:53am >=1.030Urine pHSept2024 11:50amSept2024 11:53am6.0Urine Leukocyte EsteraseSept2024 11:50amSept2024 11:53amsmall Urine NitriteSept2024 11:50amSept2024 11:53amNegative Urine ProteinSept2024 11:50amSept2024 11:11ji713Ykzhl Glucose (UA)February 10, 2025 11:50amSept2024 11:53amnegative Urine KetonesSept2024 11:50amSept2024 11:53amnegative Urine UrobilinogenSept2024 11:50amSept2024 11:53am0.2 Urine BilirubinSept2024 11:50amSept2024 11:53amnegative Urine Occult BloodSept2024 11:50amSept2024 11:53am trace-intact Microbiology Results Procedure Source Result Collection Date/Time Result Date/Time Result Comment Performing Site Urine Culture Urine Escherichia coli (MDRO) [facility] 2024 12:35pm February 13, 2025 2:40pm [facility] [id number] [address] [place] [id number] Vital Signs Vital Reading Result Reference Range Collection Date/Time Height 65 [in_i] February 10, 2025 11:67ejFhmrky45.89 kgSe2024 11:39amBody Pbricpxmbrt35.6 [degF]97.6-99.0February 10, 2025 11:39amHeart Rate77 /min 60-100February 10, 2025 11:39amRespiratory rate18 /mcx74-84JauobfndzFebruary 10, 2025 11:39amOxygen saturation by Pulse wllbmjak25 %95-100February 10, 2025 11:39amBP Qrxqtxdx465 mm[Hg]100-140pt2024 11:39amBP Qpnocameo03 mm[Hg]60-100pt2024 11:39amBMI (Body Mass Index)34.4 kg/n5ZymagpjgqFebruary 10, 2025 11:39am Advance Directives Advance Directive Response Recorded Date/ Time Advance Directives No March 29, 2018 5:45pm Insurance Providers Guarantor Ventura Mahan Address [address] [facility] [address]Mnanbkz Info.Home Phone: Coverage Status Update:2025 Payer Group Member ID Coverage Type Subscriber Relationship to Subscriber Effective Date Expiration Date Silvia ARRIOLA Id: [id number] Russell , M Id: [id number] [address] [place] [facility] [address] Home Phone: Email: [email or web address] Encounters Encounter Location(s) Arrival/Admit Date Discharge/Departure Date Discharge/Departure Disposition Provider(s) Departed Physician/ Provider Office Visit -[facility] February 10, 2025 12:24pm February 10, 2025 1:00pm Discharged to home care or self care (routine discharge) Ventura Duarte APRN Departed Clinical -Lab [facility] February 10, 2025 12:35pm February 10, 2025 12:36pm Discharged to home care or self care (routine discharge) Ventura Duarte APRN Departed Clinical -Flu Vaccine March 02, 2025 9:00am March 02, 2025 9:00am Discharged to home care or self care (routine discharge) Babar Carbajal DO Departed Referred -[facility] March 12, 2025 12:31pm March 12, 2025 12:32pm Discharged to home care or self care (routine discharge) Jaxson Gonzales Departed Referred -LAB [facility] April 11, 2025 9:37am April 11, 2025 9:38am Discharged to home care or self care (routine discharge) Jaxson Gonzales Recent Diagnosis Onset Date Admit Date Acute UTI Unknown February 10, 2025 12:24pm Assessments Diagnosis Onset Date Resolution Status Admit Date Acute UTI acuteSept2024 12:24pm Plan of Treatment Author Tania Dove [facility]AuthoredSept2024 1:08pm UA with Small leukocytes, trace blood. Will [...]
[2025-04-14 13:18] VITALS: BP 106/79; PULSE 103; TEMP 36.9; O2SAT 100; BMI 34.9
--- NOTE | 2025-04-14 13:22 | ECG_ITS ---
[facility] Test Date: 2025-04-14 Pat Name: JUAQUIN ARMSTRONG Department: Room: - Gender: Female Finance Advisor: : 1990 Requested By: [id number] Order Number: [id number] Reading MD: DEAN POSADAS M.D. Measurements Intervals [place] Rate: 81 P: 115 MO: 132 QRS: 113 QRSD: 80 T: 134 QT: 348 QTc: 385 Interpretive Statements 1100 Sinus rhythm 5120 Possible right ventricular hypertrophy 0101 Possible arm leads reversed, check lead requested 9130 borderline ECG Compared to ECG 02/05/2024 16:55:07 No significant changes Electronically Signed On 04-15-2025 20:25:26 EST by DEAN POSADAS M.D.
--- NOTE | 2025-04-14 13:23 | ED.GENADUL1 ---
HPI HPI - General Adult General Chief complaint: Urogenital-Female Stated complaint: post surgery UTI symtoms shortness of breath Time Seen by Provider: 04/14/25 13:14 Source: patient Mode of arrival: Wheelchair Limitations: no limitations History of Present Illness HPI narrative: Patient is a 34 year old female who presents to the ED for evaluation of shortness of breath and lightheadedness that began just prior to arrival while she was getting dressed. Patient states she had a lap hysterectomy with Dr. Gonzales on 04/11/25. She states she has been taking only ibuprofen for pain and has not needed any narcotics for pain control. She has noted more discomfort in the low back which has been tolerable. She denies fevers, vomiting or diarrhea. Today she felt she couldn't catch her breath and was lightheaded without syncope. Denies chest pain or cough/sputum production. No meds taken prior to arrival. She also felt pressure in the low abdomen with urinating and is concerned she may have a UTI Related Data Previous Rx's ?Medication ?Instructions ?Recorded ibuprofen 800 mg tablet 800 mg PO Q8H PRN pain 14 days #40 04/11/25 tabs cephalexin 500 mg capsule 500 mg PO Q8H 7 days #21 caps 04/14/25 ondansetron 4 mg disintegrating 4 mg PO Q6H PRN nausea and 04/14/25 tablet vomiting #6 tabs Allergies Allergy/AdvReac Type Severity Reaction Status Date / Time levofloxacin (From Levaquin) Allergy Mild Rash Verified 04/14/25 13:22 Opioid HPI Opioid Management Most Recent Opioid Data: Last Pain Scale 2 04/11/25, 15:58 Last Pain Assessment 04/11/25, 15:45 Last MAR Pain Assessment 04/11/25, 15:58 Review of Systems ROS Constitutional Denies: fever or chills Ears, nose, mouth, and throat Denies: throat pain Cardiovascular Denies: chest pain Respiratory Reports: shortness of breath; Denies: cough Gastrointestinal Denies: abdominal pain, nausea or vomiting Genitourinary Reports: painful urination Musculoskeletal Reports: back pain; Denies: neck pain Integumentary/Breast Denies: rash Neurological Reports: dizziness; Denies: headache, numbness in extremities or weakness in extremities [facility] Medical History (Updated 04/14/25 @ 15:19 by LORELEI Jara) Back pain ?M54.9 - Dorsalgia, unspecified (ICD-10) Low iron ?E61.1 - Iron deficiency (ICD-10) Kidney stones ?N20.0 - Calculus of kidney (ICD-10) Sinusitis ?J32.9 - Chronic sinusitis, unspecified (ICD-10) HPV (human papilloma virus) infection ?B97.7 - Papillomavirus as the cause of diseases classified elsewhere (ICD-10) Dysmenorrhea ?N94.6 - Dysmenorrhea, unspecified (ICD-10) Dyspareunia Pelvic pain ?R10.20 - (ICD-10) Menorrhagia ?N92.0 - Excessive and frequent menstruation with regular cycle (ICD-10) HGSIL (high grade squamous intraepithelial dysplasia) Surgical History (Updated 04/02/25 @ 10:14 by Kierra Levy NP) History of hernia repair ?Z98.890 - Other specified postprocedural states (ICD-10) ?Z87.19 - Personal history of other diseases of the digestive system (ICD-10) History of laparoscopy ?Z98.890 - Other specified postprocedural states (ICD-10) History of endometrial ablation ?Z98.890 - Other specified postprocedural states (ICD-10) History of cholecystectomy ?Z90.49 - Acquired absence of other specified parts of digestive tract (ICD-10) H/O tubal ligation ?Z98.51 - Tubal ligation status (ICD-10) Family History (Updated 04/02/25 @ 10:14 by Kierra Levy NP) Other Family history of DVT Family history of diabetes mellitus Family history of pulmonary embolism Family history of stroke Social History Within the past year, how often did you have a drink containing alcohol: never Score interpretation: A score less than 3 is consistent with normal alcohol consumption. 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 Steri strips in place with no dehiscience or drainage Musc: Normal ROM in extremities Skin: Warm and dry, no rashes Neuro: No focal neuro deficits Psych: Normal mood and affect Constitutional Vital Signs, click to edit/add: Last Vital Signs Temp 98.4 F 04/14/25 13:18 Pulse 103 H 04/14/25 13:18 Resp 22 H 04/14/25 13:18 BP 106/79 04/14/25 13:18 Pulse Ox 100 04/14/25 13:18 O2 Del Method Room Air 04/14/25 13:18 Course Vital Signs Vital signs: Vital Signs Temperature 98.4 F 04/14/25 13:18 Pulse Rate 103 H 04/14/25 13:18 Respiratory Rate 22 H 04/14/25 13:18 Blood Pressure 106/79 04/14/25 13:18 Pulse Oximetry 100 04/14/25 13:18 Oxygen Delivery Method Room Air 04/14/25 13:18 Temperature 98.4 F 04/14/25 13:18 Pulse Rate 103 H 04/14/25 13:18 Respiratory Rate 22 H 04/14/25 13:18 Blood Pressure 106/79 04/14/25 13:18 Pulse Oximetry 100 04/14/25 13:18 Oxygen Delivery Method Room Air 04/14/25 13:18 Medical Decision Making MDM Narrative Medical decision making narrative: Laboratory studies reviewed and noted. Patient had a positive D-dimer in the ER and was sent for CT angio of the chest to rule out PE. There is no evidence of acute process on CT. Labs do show patient has a urinary tract infection. The remainder of the labs are unremarkable. She has no complaints of abdominal pain in the ER. She was given IV fluids and Zofran. She is encouraged to follow-up with [employer]. Return to the emergency department if symptoms change or worsen. Antibiotics and Zofran given for home. Patient is hemodynamically stable in the emergency department with no hypoxia or significant tachycardia. Medical Records Medical records reviewed: Yes I reviewed the patient's medical records Lab Data Lab results reviewed: Yes I reviewed the patient's lab results Labs: Lab Results 04/14/25 04/14/25 Range/Units 13:28 13:43 WBC 5.5 (4.0-11.0) 10^3/uL RBC 4.45 (4.20-5.40) 10^6/uL Hgb 13.5 (12.0-16.0) g/dL Hct 40.4 (36.0-48.0) % MCV 90.8 (81.0-99.0) fL MCH 30.3 (26.7-34.0) pg MCHC 33.4 (29.9-35.2) g/dL RDW 12.5 (11.0-15.0) % Plt Count 164 (150-450) 10^3/uL MPV 10.7 (9.5-13.5) fL Neut % (Auto) 72.0 (43.0-75.0) % Lymph % (Auto) 16.8 L (20.5-60.0) % [place] % (Auto) 6.4 (1.7-12.0) % Eos % (Auto) 4.2 (0.9-7.0) % Baso % (Auto) 0.4 (0.2-2.0) % Neut # (Auto) 3.9 (1.4-6.5) 10^3/uL Lymph # (Auto) 0.9 L (1.2-3.8) 10^3/uL [place] # (Auto) 0.4 (0.3-0.8) 10^3/uL Eos # (Auto) 0.2 (0.0-0.7) 10^3/uL Baso # (Auto) 0.0 (0.0-0.1) 10^3/uL Abs Immat Gran (auto) 0.01 (0.00-0.03) 10^3/uL Imm/Tot Granulo (auto) 0.2 (0.0-0.5) % D-Dimer 1.16 H* (<=0.59) mg/L FEU Sodium 140 (136-145) mmol/L Potassium 3.3 L (3.5-5.1) mmol/L Chloride 105 (98-107) mmol/L Carbon Dioxide 26.8 (21.0-32.0) mmol/L Anion Gap 11.5 BUN 8.0 (7.0-18.0) mg/dL Creatinine 0.96 (0.55-1.02) mg/dL Est GFR ( Amer) >60 (>=60 mL/min/1.73m^2) Est GFR (Non-Af Amer) >60 (>=60 mL/min/1.73m^2) BUN/Creatinine Ratio 8.3 Glucose 109 H (74-106) mg/dL Calcium 8.8 (8.5-10.1) mg/dL Magnesium 1.8 (1.8-2.4) mg/dL Total Bilirubin 0.5 (0.2-1.0) mg/dL AST 13 L (15-37) U/L ALT 21 (14-59) U/L Alkaline Phosphatase 74 (46-116) U/L Troponin I High Sens <4.0 L (4.0-51.3) pg/mL Total Protein 6.7 (6.4-8.2) g/dL Albumin 3.3 L (3.4-5.0) g/dL Globulin 3.4 g/dL Albumin/Globulin Ratio 1.0 Urine Color Lt. yellow (YELLOW) Urine Clarity Cloudy A (CLEAR) Urine pH 6.0 (5.0-9.0) Ur Specific [place] 1.020 (1.005-1.025) Urine Protein Trace (NEG/TRACE) mg/dL Urine Glucose (UA) Negative (NEGATIVE) mg/dL Urine Ketones Negative (NEGATIVE) mg/dL Urine Occult Blood Small A (NEGATIVE) Urine Nitrite Negative (NEGATIVE) Urine Bilirubin Negative (NEGATIVE) Urine Urobilinogen 0.2 (0.2-1.0) EU/dL Ur Leukocyte Esterase Large A (NEGATIVE) Urine RBC 0-2 (0-2) #/HPF Urine WBC >100 A (NONE SEEN) #/HPF Ur Squamous Epith Cells Few A (NONE/RARE) #/LPF Urine Crystals None seen (None Seen) #/HPF Urine Bacteria Moderate A (NONE SEEN) #/HPF Urine Casts None seen (NONE SEEN) #/LPF Urine Mucus None seen (NONE SEEN) Ur Culture Indicated? Yes-[facility] [place] Imaging Data CT scan - chest: Attestation: I have reviewed the pertinent imaging results. Radiologist's impression: ITS Impressions Chest CTA 04/14/25 14:20 IMPRESSION: NO EVIDENCE OF ACUTE PULMONARY EMBOLISM OR PROCESS. Impression dictated by: Jeff Vegas Jr., D.O. 04/14/2025 3:12 PM Dictation Location: [employer] Electronically authenticated by: [id number] Y Date: 04/14/2025 15:12 ECG Data Attestation: I personally reviewed and interpreted this ECG as follows: (Normal sinus rhythm at a rate of [address] elevation or ectopy. EKG reviewed by attending physician) Discharge Plan Discharge Chief Complaint: Urogenital-Female Clinical Impression: Urinary tract infection Patient Disposition: Home, Self-Care Time of Disposition Decision: 15:19 Condition: Good Prescriptions / Home Meds: New ondansetron 4 mg tablet,disintegrating 4 mg PO Q6H PRN (Reason: nausea and vomiting) Qty: 6 0RF cephalexin 500 mg capsule 500 mg PO Q8H 7 Days Qty: 21 0RF No Action ibuprofen 800 mg tablet 800 mg PO Q8H PRN (Reason: pain) 14 Days Qty: 40 0RF Print Language: Luxembourgish Instructions: Urinary Tract Infection in Women (DC) Referrals: Stoney DOLAN [Primary Care Provider, Family Practice] - 1 week
[2025-04-14 13:44] LABS: Glucose Urine UA NEGATIVE (NEGATIVE)
[2025-04-14 13:48] LABS: Hematocrit 40.4 % (36.0-48.0); Hemoglobin 13.5 g/dL (12.0-16.0); Immature Granulocytes Abs Auto 0.01 10^3/uL (0.00-0.03); Immature Granulocytes Pct Auto 0.2 % (0.0-0.5); Lymphocytes Absolute Auto 0.9 10^3/uL (1.2-3.8); Mean Corpuscular HGB Conc 33.4 g/dL (29.9-35.2); Mean Corpuscular Hemoglobin 30.3 pg (26.7-34.0); Mean Corpuscular Volume 90.8 fL (81.0-99.0); Platelet Count 164 10^3/uL (150-450); Red Blood Count 4.45 10^6/uL (4.20-5.40); White Blood Count 5.5 10^3/uL (4.0-11.0)
[2025-04-14] MEDS: 0.9 % SODIUM CHLORIDE 1,000 ML 1000 ML IV (14:00)
--- OUTSIDE RECORDS SUMMARY | 2025-04-14 14:09 | XMS_ITS | CCD ---
Author Organization [facility] Care Team Providers Care Adaptive Physical Education Teacher Name Role Phone Gabino Prieto Primary Care [...] Unavailable ELLEN WARREN Consulting Unavailable CHRISTIAN, DR PIAZ Consulting Unavailable CHRISTIAN, DR PAIZ Admitting Unavailable [...] Attending Provider Jaxson Gonzales DO Attending Provider [phone] Kanani DMD, Genaro Attending Unavailable Warren Prieto DO Primary Care Unavailable Kanani DMD, Genaro Unavailable Unavailable Tania Dove APRN Attending Provider [phone] Gabino Prieto DO Primary Care Provider [facility] Adeel CORREA Attending Provider Jaxson Gonzales DO Attending Provider JAXSON GONZALES Attending Unavailable JAXSON GONZALES Attending Unavailable CORRINE LAMAR Attending Unavailable JAXSON GONZALES Attending Unavailable MADI ALVARES Attending UnavailELLEN Pina Attending Unavailable CORRINE LAMAR Attending Unavailable JAXSON GONZALES Attending Unavailable JacobSaint Elizabeth EdgewoodAdeel Admitting Unavailable Dandy Adeel QUINN Attending Unavailable [...] of OnsetReaction(s) Facility (20 sources)levoFLOXacin; Translations: [levofloxacin]Drug Wnleuci29-15-5989 [facility] (1 source)levoFLOXacinDrug Fobjlja06-57-9321UiwSelect Medical [facility] (16 sources)levoFLOXacinDrug Fpruyzh36-68-8087[facility] Medications Current Medications MedicationDrug Class(es)DatesSig (Normalized)Sig (Original)benzonatate 100 mg oral capsule (2 sources)Non-narcotic AntitussiveStart: 07-05-2024 End: 82-96-1936plgy 1 capsule by mouth three times daily as needed for cough benzonatate (Tessalon) 100 MG capsule TAKE 1 CAPSULE BY MOUTH 3 TIMES A DAY NEEDED FOR COUGH 07/05/2024 08/22/2024 Discontinuedbrompheniramine maleate 0.4 mg/ml / dextromethorphan hydrobromide 2 mg/ml / pseudoephedrine hydrochloride 6 mg/ml oral solution (4 sources)alpha-Adrenergic Agonist, Uncompetitive O-yblpcz-T-aspartate Receptor Antagonist, Sigma-1 AgonistStart: 09-11-2024 End: 37-53-6792xzhr 5 mL by mouth four times daily as needed for congestion ilicnzpdhtzqloo-bcamrgujvqdlmjo-QV 30-2-10 MG/5ML syrup Indications: Viral URI Take 5 mL by mouth 4(four) times a day as needed for congestion for up to 10 days 120 mL 09/11/2024 09/26/2024 Discontinued (Discontinued by another clinician)cephalexin 500 mg oral capsule (2 sources)Cephalosporin AntibacterialStart: 05-22-2024 End: 31-60-9268pxbz 1 capsule by mouth in the morning, [...] 12 hr tablet (2 sources)Start: 07-05-2024 End: 98-78-0405vaqe 5-120 mg by mouth every twelve hours as neededCVS Allergy Relief D 5-120 MG 12 hr tablet TAKE 1 TAB ORALLY EVERY 12 HOURS NEEDED FOR NASAL CONGESTION 07/05/2024 08/22/2024 Discontinuedibuprofen 200 mg oral tablet (2 sources)Nonsteroidal Anti-inflammatory Drug End: 49-02-7615yiyp 1 tablet by mouth every six hours as neededibuprofen 200 MG tablet Take 200 mg by mouth every 6 (six) hours if needed 08/22/2024 DiscontinuedNirmatrelvir-Ritonavir (Paxlovid) 300 mg (150 mg x 2)-100 mg tablets,dose pack (6 sources)Start: 10-61-5530Tppxxcqcmfkv-Ritonavir (Paxlovid) 300 mg (150 mg x 2)-100 mg tablets,dose pack Active 0 PO .NIJNNDQ39 February 02, 2024 12:00am take TWO 150 mg tablets of nirmatrelvir with ONE 100 mg tablet of ritonavir twice daily for 5 days POStart: 02-02-2024 End: 41-77-9056Fdpjzxlmwadr-Ritonavir (Paxlovid) 300 mg (150 mg x 2)-100 mg tablets,dose pack Discontinued 0 PO .COMPLEX February 02, 2024 12:00am February 02, 2024 6:58pm take TWO 150 mg tablets of nirmatrelvir with ONE 100 mg tablet of ritonavir twice daily for 5 days POnitrofurantoin, macrocrystals 25 mg / nitrofurantoin, monohydrate 75 mg oral capsule (3 sources)Nitrofuran AntibacterialStart: 12-22-7375gdki 1 capsule by mouth every twelve hours at mealtimeNo Name (No Known Home Meds) (1 source)Start: 12-29-0401Gd Name (No Known Home Meds) Active February 10, 2025 12:00amPaxlovid, 300/100, 20 x 150 MG & 10 x 100MG tablet therapy pack (2 sources)Start: 02-02-2024 End: 23-24-5769Joxswawf, 300/100, 20 x 150 MG & 10 x 100MG tablet therapy pack TAKE 3 TABLETS TOGETHER (TWO 150 MG NIRMATRELVIR TABLETS AND ONE 100 MG RITONAVIR TABLET) BY MOUTH TWICE DAILY FOR 5 DAYS. 02/02/2024 08/22/2024 Discontinuedphenazopyridine hydrochloride 200 mg oral tablet (4 sources)Start: 80-75-2039zysr 1 tablet by mouth three times daily as needed for painsulfamethoxazole 800 mg / trimethoprim 160 mg oral tablet (4 sources)Dihydrofolate Reductase Inhibitor Antibacterial, Sulfonamide AntimicrobialStart: 89-29-0093gttz 1 tablet by mouth every twelve hours Completed/Discontinued Medications MedicationDrug Class(es)DatesSig (Normalized)Sig (Original)acetaminophen 325 mg / HYDROcodone bitartrate 5 mg oral tablet (9 sources)Opioid AgonistStart: 02-11-2019 End: 94-61-6003geqe 1 tablet by mouth every four to six hours as needed for pain Hydrocodone-Acetaminophen (Borup) 5-325 mg Tablet Discontinued 1 TAB PO EVERY 4- 6 HOURS as needed for Pain 7 3 0 February 11, 2019 12:00am February 02, 2024 6:33pm Calculus of ureter Calculus of ureterciclopirox 80 mg/ml topical solution (4 sources)Start: 05-22-2024 End: 97-99-1437ndoxapknvi (Penlac) 8 % solution Indications: Toenail fungus Apply topically at bedtime 6 mL 05/22/2024 08/15/2024 Discontinuedfluticasone propionate 0.05 mg/actuat metered dose nasal spray (10 sources)CorticosteroidStart: 02-08-2023 End: 21-57-7516ciak 1-2 spray(s) nasal route once daily as neededfluticasone (Flonase) 50 MCG/ACT nasal spray Indications: Allergic rhinitis, unspecified seasonality, unspecified trigger USE 1 - 2 SPRAYS IN EACH NOSTRIL ONCE A DAY NEEDED 48 mL 1 02/08/2023 05/22/2024 Discontinuednaproxen 500 mg oral tablet (9 sources)Nonsteroidal Anti-inflammatory DrugStart: 02-11-2019 End: 39-29-1642rugu 1 tablet by mouth every twelve hours at mealtimeNaproxen (Naprosyn) 500 mg Tablet Discontinued 500 MG PO Q12H 20 0 February 11, 2019 12:00am February 02, 2024 6:33pm administer with food or milk Nirmatrelvir-Ritonavir (10 sources)Start: 02-02-2024 End: 39-57-3535Bwxpgguiamfr-Ritonavir (Paxlovid) 300 mg (150 mg x 2)-100 mg tablets,dose pack Discontinued 0 PO .COMPLEX 30 0 February 02, 2024 12:00am February 02, 2024 6:58pm take TWO 150 mg tablets of nirmatrelvir with ONE 100 mg tablet of ritonavir twice daily for 5 days POStart: 02-02-2024 End: 42-16-3595Mcjtfrmtdhnv-Ritonavir (Paxlovid) 300 mg (150 mg x 2)-100 mg tablets,dose pack Discontinued 0 PO .COMPLEX 30 February 02, 2024 12:00am February 10, 2025 12:41pm take TWO 150 mg tablets of nirmatrelvir with ONE 100 mg tablet of ritonavir twice daily for 5 days POStart: 02-02-2024 End: 38-52-3126Ldungqqfhwlz-Ritonavir (Paxlovid) 300 mg (150 mg x 2)-100 mg tablets,dose pack Discontinued 0 PO .COMPLEX February 02, 2024 12:00am February 02, 2024 6:58pm take TWO 150 mg tablets of nirmatrelvir with ONE 100 mg tablet of ritonavir twice daily for 5 days POStart: 02-02-2024 End: 78-28-4101Lcfkonwlytss-Ritonavir (Paxlovid) 300 mg (150 mg x 2)-100 mg tablets,dose pack Discontinued 0 PO .COMPLEX February 02, 2024 12:00am February 10, 2025 12:41pm take TWO 150 mg tablets of nirmatrelvir with ONE 100 mg tablet of ritonavir twice daily for 5 days POondansetron 4 mg disintegrating oral tablet (9 sources)Serotonin-3 Receptor AntagonistStart: 02-11-2019 End: 69-52-6850Tzblzidrfiv 4 mg Tablet,Disintegrating Discontinued 4 MG PO every 6 to 8 hours as needed for Cbgteo03 February 11, 2019 12:00am February 02, 2024 6:33pmtamsulosin hydrochloride 0.4 mg oral capsule (9 sources)alpha-Adrenergic BlockerStart: 02-11-2019 End: 59-27-3202ilgo 1 capsule by mouth once dailyTamsulosin (Flomax) 0.4 mg capsule Discontinued 0.4 MG PO Daily 7 February 11, 2019 12:00am February 02, 2024 6:32pm Problems Active Problems Problem ClassificationProblemDateDocumented DateEpisodic/ChronicCalculus of urinary tract (17 sources)Ureteric stone; Translations: [Kidney stone]58-99-7351Fekuqytw Comment on above:Problem List clean-up per request of Phys. EHR CmteCoagulation and hemorrhagic disorders (20 sources)Thrombocytopenic disorder; Translations: [Thrombocytopenia, unspecified]Onset: 241354-92-0157PbyqgbiQvjomfbwanvyx symptoms and ill- defined conditions (2 sources)Dysuria; Translations: [Dysuria]Onset: 108279-79-6439Bwaabvba Immunizations and screening for infectious disease (3 sources)Encounter for screening for human papillomavirus (HPV); Translations: [Contact with or exposure to other viral diseases]Onset: 714560-13-4488 EpisodicMenstrual disorders (20 sources)Excessive and frequent menstruation with regular cycle; Translations: [Menorrhagia]Onset: 81-99-2305HljiaheEphyrce (2 sources)Onychomycosis of toenails; Translations: [Tinea unguium]05-22-2024 EpisodicOther connective tissue disease (2 sources)Pain in right foot; Translations: [Pain in right foot]09-26-2024 EpisodicOther female genital disorders (2 sources)Pain in female genitalia on intercourse; Translations: [Unspecified dyspareunia]17-98-1728WquiuueEgkgo female genital disorders (1 source)Pain in female pelvis; Translations: [Pelvic pain in female]03-12-2025 EpisodicOther liver diseases (5 sources)Liver disease, unspecified; Translations: [LIVER DISEASE UNSPECIFIED] Onset: 67-62-8230VcduybnOvqpf liver diseases (20 sources)Lesion of liver; Translations: [Liver disease, unspecified]Onset: 708465-46-1891RgflsxoTdbgz lower respiratory disease (2 sources)Cough; Translations: [Cough, unspecified type]06-91-7361ImfzacdwRbgcc nutritional; endocrine; and metabolic disorders (20 sources)Obesity; Translations: [Obesity, unspecified]Onset: 02-08-2023 84-91-2758AtbbxjyWnqpz screening for suspected conditions (not mental disorders or infectious disease) (7 sources)Encounter for screening for malignant neoplasm of cervix; Translations: [Encounter for screening for dental disorders]Onset: 08-25-2021 EpisodicOther skin disorders (2 sources)Ingrowing toenail; Translations: [Ingrowing nail]18-82-2733Gjexmntj Other upper respiratory infections (20 sources)Sinusitis; Translations: [Chronic sinusitis, unspecified]Onset: 417575-90-5876JteidcnNrimc upper respiratory infections (12 sources)Pharyngitis; Translations: [Acute pharyngitis, unspecified] 17-89-8418OynlazoeXoedmzb on above:Problem List clean-up per request of Phys. EHR CmteResidual codes; unclassified (3 sources)History of endometrial ablation; Translations: [Other specified postprocedural states]76-02-0021WqrvbsbfOdix and subcutaneous tissue infections (4 sources)Paronychia of toe of right foot; Translations: [Cellulitis of right toe]01-43-9814NoxpsrqwWlzfhviuigyb (1 source)CONTACT W/AND (SUSP) EXPOS COVID-19; Translations: [CONTACT W/AND (SUSP) EXPOS COVID-19]Onset: 69-27-4876Vkjyxyzpiqwu (6 sources)Pain in pelvis; Translations: [Pain in pelvis]Onset: 02-08-2023 00-37-9784Iqnpvtj tract infections (6 sources)Acute urinary tract infection; Translations: [Urinary tract infection, site not specified]92-76-2515Masvqziz Past or Other Problems Problem ClassificationProblemDateDocumented DateEpisodic/ChronicAbdominal pain (20 sources)Pelvic and perineal pain; Translations: [Unspecified abdominal pain] Onset: 273164-56-6612LausiuliRjftxe of cervix (20 sources)Cervicovaginal cytology: Low grade squamous intraepithelial lesion; Translations: [Low grade squamous intraepithelial lesion on cytologic smear of cervix (LGSIL)]Onset: 413851-78-6503KlrtddktEkjwhnerullac and procreative management (1 source)Tubal ligation status; Translations: [TUBAL LIGATION STATUS]Onset: 46-71-7703NfzhfpkyRxikcyhx of upper limb (16 sources)Fracture of distal end of radius; Translations: [Unspecified fracture of the lower end of unspecified radius, initial encounter for closed fracture]Onset: 865986-38-9536RmbchataCnkinl and vomiting (4 sources)Nausea with vomiting, unspecified; Translations: [NAUSEA WITH VOMITING UNSPECIFIED]Onset: 13-59-6173OsqceykkQmhobigckmgaz gastroenteritis (1 source)Noninfective gastroenteritis and colitis, unspecified; Translations: [NONINFECTIVE GE AND COLITIS UNS]Onset: 54-68-4715JrtkrzroCexjvdho codes; unclassified (1 source)Acquired absence of other specified parts of digestive tract; Translations: [ACQ ABSENCE OTH PART DIGESTV TRACT]Onset: 18-25-8394Cmepiujx Screening and history of mental health and substance abuse codes (1 source)Personal history of nicotine dependence; Translations: [PERSONAL HISTORY OF NICOTINE DEPEND]Onset: 96-64-1267FrfxhxkdDvqstpvjkwqj (1 source)SRP (chief complaint)Onset: 27-02-9807Pqjko infection (20 sources)Disease caused by 2019-nCoV; Translations: [COVID-19]Onset: 506910-10-7205Ptgxkfck Results Test NameValueInterpretationReference RangeFacilityALL CBC WITH AUTO DIFFon 90-08-0334XQPFVVNNS ABSOLUTE AUTO0.0NOMS HealthcareBasophils/100 WBC (Bld)0.5 % 0.2 - 2.0 %NOMParkland Health CenterEosinophils/100 WBC (Bld)1.9 %0.9 - 7.0 %[facility] HospitalErythrocyte distribution width (RBC) [Ratio]12.5 %11.0 - 15.0 %[facility] HospitalHematocrit (Bld) [Volume fraction]41.4 %36.0 - 48.0 %[facility] Hemoglobin (Bld) [Mass/Vol]13.6 g/dL12.0 - 16.0 g/dLNOExcelsior Springs Medical CenterIMMATURE GRANULOCYTES ABS AUTO0.01NOMS HealthcareImmature granulocytes/100 WBC (Bld)0.2 % 0.0 - 0.5 %[facility] HospitalLYMPHOCYTES ABSOLUTE AUTO1.7[facility] Lymphocytes/100 WBC (Bld)29.9 %20.5 - 60.0 %[facility] CenterH (RBC) [Entitic mass]29.3 pg26.7 - 34.[address] Vincent Medical CenterHC (RBC) [Mass/Vol]32.9 g/dL29.9 - 35.2 g/dLNOMS HealthcareMCV (RBC) [Entitic vol]89.2 fL81.0 - 99.0 fLNOMS HealthcareMONOCYTES ABSOLUTE AUTO0.4NOMS HealthcareMonocytes/100 WBC (Bld)6.9 % 1.7 - 12.0 %NOMS HealthcareNEUTROPHILS ABSOLUTE AUTO3.5[facility] Neutrophils/100 WBC (Bld)60.6 %43.0 - 75.0 %NOMS HealthcarePlatelet mean volume (Bld) [Entitic vol]11.0 fL9.5 - 13.5 fLNOMS HealthcareTBH EO #0.1[facility] TBH DWN357PNEZ HealthcareTBH RBC4.64NOMS HealthcareTBH WBC5.7[facility] CLINISYNCNOMS HealthcareIGP,APTIMA HPV,AGE GDLNon 68-70-4318ESY GDLN ACOG TESTINGNote.[facility] HealthcareComment on above:TESTS RESULT FLAG UNITS REF RANGE LAB Clinician Provided Cytology Information Source.............Cervix;Endocervix No. of containers..01 ThinPrep Vial Age Algo ACOG Paula... 30-65 01 FLAG LEGEND: L-Low Normal,H-High Normal,LL-Alert Low,HH-Alert High <-Panic Low,>-Panic High,A-Abnormal,AA-Critical Abnormal Performed at: 01 =G [facility] [address], [place] [address] Wendy Kumar MD, HPV APTIMAPositiveAbnormalNegativeNOMS HealthcareComment on above:This nucleic acid amplification test detects fourteen high- risk HPV types (16,18,31,33,35,39,45,51,52,56,58,59,66,68) without differentiation. HPV GENOTYPE 16NegativeNegativeNOMS HealthcareHPV GENOTYPE 18,45PositiveAbnormal NegativeNOMS HealthcareComment on above:Performed at: =[address] [id number] Senior Gamemaster: Wendy Kumar MD, Phone: [phone] Performed at: [address] [id number] Senior Gamemaster: Wendy Kumar MD, Phone: [phone] IGP, APTIMA HPV, RFX 16/18,45Note.NOMS HealthcareComment on above:TESTS RESULT FLAG UNITS REF RANGE LAB DIAGNOSIS: 02 NEGATIVE FOR INTRAEPITHELIAL LESION OR MALIGNANCY. REACTIVE CELLULAR CHANGES AND/OR REPAIR ARE PRESENT. Specimen adequacy: 02 Satisfactory for evaluation. Endocervical and/or squamous metaplastic cells (endocervical component) are present. Performed by: 02 Radha Lake, Systems Designer (ASCP) Electronically si... 02 Pedro Padilla MD, [...] ThinPrep(R) pap test was interpreted using the GATR TechnologiesRBitstamp(TM) Cervical Algorithm whole slide imaging system. HPV Genotype Reflex Note 02 Criteria met, see HPV Genotype results. FLAG LEGEND: L-Low Normal,H-High Normal,LL-Alert Low,HH-Alert High <-Panic Low,>-Panic High,A-Abnormal,AA-Critical Abnormal Performed at: [address] [address] Wendy Kumar MD, Interpretation and review of laboratory resultsAbTrinity Health Livingston Hospital BRUSH-SPATULA CERVIX ENDOCERVIX CLINISYNCGolden Valley Memorial HospitalHCG ( test) Ql (U)on 61-76-2416Dlhyitydidfegj and review of laboratory resultsNoBradford Regional Medical CenterPreg Test, UrNegative NegativeNOMercyhealth Mercy HospitalLon 03-12-2025L Specimen: [id number] Received: 03/13/25 Status: LUCIAN Barreto Num: [id number] Spec Type: Surgical Subm Dr: Jaxson Gonzales Tissues: A Endometrium - Biopsy (ENDO BX) Procedures: HE/2, Gross/Micro L4 Age/ Patient Sex Location Account Attending Physician Farzaneh Marvin 34/F LABELL [id number] Jaxson Gonzales SPEC NUM: [id number] RECD: 03/13/25 STATUS: LUCIAN BARRETO NUM: [id number] PERFECTO: 03/12/[address] [facility] [address]: Jaxson Gonzales ENTERED: 03/13/[address] [facility] [address]: [place],Lab SPEC TYPE: Surgical DEPT: [facility] ENTERED BY: [id number] RECV BY: [id number] ORDERED: HE/2, Gross/Micro L4 ORDERED: HE/2, Gross/Micro [...] submitted in a single cassette. (1, ns, [id number] 120 A) Microscopic Description Microscopic examination is performed. CPT Codes 53679 Specimen: [id number] Received: 03/13/25 Status: LUCIAN Alisa Num: [id number] Spec Type: Surgical Subm Dr: Jaxson Gonzales Tissues: A Endometrium - Biopsy (ENDO BX) Procedures: Chad JULIO/Samson L4 Patient: Farzaneh Marvin [id number] (Continued) Signed (signature on file) Tripp Gu MD 03/14/25 1151Normal [facility] Physician GroupLaboratory - Chemistry and Chemistry - challenge Ordered By: Tania Dove on 29-60-2947Pksnvrgyy Ql (U)[facility] HospitalGlucose (U) [Mass/Vol]NegativeKettering Memorial HospitalKetones Ql (U)NegativeKettering Memorial HospitalpH (U)6.0 [pH] [facility] Southpecific gravity (U) [Rel density]>=1.030 [facility] HospitalUrobilinogen (U) [Mass/Vol]0.2 mg/dLKettering Memorial HospitalLaboratory - Specimen informationOrdered By: Tania Dove on 54-98-8951Zhiyyaqift (U)cloudyKettering Memorial HospitalColor (U)yellowKettering Memorial HospitalLaboratory - UrinalysisOrdered By: Tania Dove on 33-50-9877Hnihyrqwm esterase Test strip Ql (U)smallKettering Memorial HospitalNitrite Ql (U)[facility] Protein Ql (U)100[facility] HospitalNo Panel InformationOrdered By: Tania Dove on 55-93-8190Lpfuu Occult Bloodtrace-intactKettering Memorial HospitalUrine Cultureon 55-79-6587Ykpapsaf identified Cx Nom (U)ORGANISM: Escherichia coli (MDRO) (O:ESCCOLMDRO) [place] Count >100,000 * This is a corrected [...] RESISTANT TO ALL B-LACTAM DRUGS. PERFORMED BY: [facility] [address] [place] [address] PATHOLOGIST ENROLLMENT MANAGEMENT VICE PRESIDENT DARIN CADENA M.D.NormalManatee Memorial Hospital Physician GroupComment on above: Performed By: #### CUU #### [facility] [address] StreetUrine cultureOrdered By: Tania Dove on 02-10-2025 Bacteria identified Cx Nom (U)Escherichia coli (MDRO)AbnormalKettering Memorial HospitalUPPER RESPIRATORY CULTUREon 76-65-9877OVUDT RESPIRATORY CULTURE Upper Respiratory Culture NOMS HealthcareUPPER RESPIRATORY CULTURERoutine respiratory floraNOExcelsior Springs Medical Center UPPER RESPIRATORY CULTUREPerformed at: - [facility] NortheastUPPER RESPIRATORY BCKRFNH[address] [place], [place] [id number] Health System RESPIRATORY CULTURELab Director: Anatoliy Argueta PhD, Phone: [phone] Valley Memorial HospitalCLINISYNTUFTS MEDICAL CENTER HealthcareLaboratory - Microbiology and Antimicrobial susceptibilityon 87-88-1240QNSN-CoV-2 (COVID-19) RNA DANIELLE+probe Ql (Unsp spec) NegativeNOVA HealthcareNo Panel Informationon 03-24-1729PPJ ANegativeNOMS HealthcareFLU BNegativeNOVA HealthcareInterpretation and review of laboratory resultsNormalSt. Louis [facility] HealthcarePathology study report document Ordered By: Tripp Gu on 50-66-9403Gzeyhlocn studyKettering Memorial Hospital Other Lon 09-05-2024L Specimen: [id number] Received: 09/06/24 Status: LUCIAN Barreto Num: [id number] Spec Type: Surgical Subm Dr: Jaxson Gonzales Tissues: A Endocervix - Curettings (ENDOCERVICAL CURETTINGS) Procedures: HE/2, Gross/Micro L4, Ki-67, CINtec p16 Age/ Patient Sex Location Account Attending Physician Farzaneh Marvin 33/F LABELL [id number] Jaxson Gonzales SPEC NUM: [id number] RECD: 09/06/24 STATUS: LUCIAN BARRETO NUM: [id number] PERFECTO: 09/05/[address] [facility] [address]: Jaxson Gonzales ENTERED: 09/06/[address] [facility] [address]: [place],Lab SPEC TYPE: Surgical DEPT: [facility] ENTERED BY: [id number] RECV BY: [id number] ORDERED: HE/2, Gross/Micro L4, Ki-67, CINtec p16 [...] submitted in a single cassette. (1, ns, [id number] A) GREG Specimen: [id number] Received: 09/06/24 Status: LUCIAN Jaureguijudie Num: [id number] Spec Type: Surgical Subm Dr: Jaxson Gonzales Tissues: A Endocervix - Curettings (ENDOCERVICAL CURETTINGS) Procedures: HE/2, Gross/Micro L4, Ki-67, CINtec p16 Patient: Farzaneh Marvin [id number] (Continued) Specimen: [id number] Received: 09/06/24 (Continued) Signed (signature on file) Tripp Gu MD 09/08/24 1050 Specimen: [id number] Received: 09/06/24 Status: LUCIAN Barreto Num: [id number] Spec Type: Surgical Subm Dr: Jaxson Gonzales Tissues: A Endocervix - Curettings (ENDOCERVICAL CURETTINGS) Procedures: HE/2, Gross/Micro L4, Ki-67, CINtec p16 Patient: Farzaneh Marvin [id number] (Continued) Specimen: [id number] Received: 09/06/24 (Continued) Microscopic Description Microscopic examination is performed. CPT Codes 07189, 36082, 62149 Specimen: [id number] Received: 09/06/24 Status: LUCIAN Barreto Num: [id number] Spec Type: Surgical Subm Dr: Jaxson Gonzales Tissues: A Endocervix - Curettings (ENDOCERVICAL CURETTINGS) Procedures: HE/2, Gross/Micro L4, Ki-67, CINtec p16 Patient: Farzaneh Marvin [id number] (Continued) Signed (signature on file) Tripp Gu MD 09/08/24 1050Normal [facility] Physician GroupIGP,APTIMA HPV,AGE GDLNon 52-07-4063[facility] ACOG TESTINGNote.NOMS HealthcareComment on above:TESTS RESULT FLAG UNITS REF RANGE LAB Clinician Provided Cytology Information Source.............Cervix;Endocervix No. of containers..01 ThinPrep Vial Age Maximino [place] Paula... FLAG LEGEND: L-Low Normal,H-High Normal,LL-Alert Low,HH-Alert High <-Panic Low,>-Panic High,A-Abnormal,AA-Critical Abnormal Performed at: 01 =G [facility] [place] [address] Wendy Kumar MD, HPV APTIMAPositiveAbnormalNegativeNOMS HealthcareComment on above:This nucleic acid amplification test detects fourteen high- risk HPV types (16,18,31,33,35,39,45,51,52,56,58,59,66,68) without differentiation. Performed at: = - [facility], [place] [id number] Senior Gamemaster: Wendy Kumar MD, Phone: [phone] Performed at: - [facility], [place] [id number] Senior Gamemaster: Wendy Kumar MD, Phone: [phone] IGP, APTIMA HPV, RFX 16/18,45NoteAbnormal.NOMS HealthcareComment on above:TESTS RESULT FLAG UNITS REF RANGE LAB DIAGNOSIS: [A] 02 EPITHELIAL CELL ABNORMALITY. LOW GRADE SQUAMOUS INTRAEPITHELIAL LESION (LSIL). Recommendation: [A] 02 Suggest follow up as clinically appropriate. Specimen adequacy: 02 Satisfactory for evaluation. Endocervical and/or squamous metaplastic cells (endocervical component) are present. Performed by: 03 No Deshpande, Supervisor Mapping (ASCP) Electronically si... 02 Wendy Kumar MD, [...] High,A-Abnormal,AA-Critical Abnormal Performed at: 02 WB [facility] [place] [address] [place] [address] Wendy Kumar MD, 03 KWCYT [facility] [address] [place] [address] Juaquin Calderon MD, Interpretation and review of laboratory resultsAbnormalNOMS Healthcare BRUSH-SPATULA CERVIX ENDOCERVIX CLINISYNCNOMS HealthcareHCG ( test) Ql (U)on 57-08-2699Qnpgtmpjonkcjw and review of laboratory resultsNormalNOMS HealthcarePreg Test, UrNegative NegativeNOMS HealthcareNOMS HealthcareBasic Metabolic Brand w/Rfx A1Con 08-14-2024 Anion gap [Moles/Vol]10.7 mmol/LNormal6.0-15.0[facility] Comment on above:Performed By: #### GABI LIPID, EMP BMP #### [facility] [address] [place] [address] USACalcium [Mass/Vol]9.8 mg/dLNormal8.6-10.3[facility] Of [facility] County Physician GroupComment on above:Performed By: #### EBS LIPID, EMP BMP #### [facility] [address] [place] [address] USAChloride [Moles/Vol]103 mmol/OBnvyyk10-963Hjy [facility] Physician GroupComment on above:Performed By: #### EBS LIPID, EMP BMP #### [facility] [address] [place] [address] USACO2 [Moles/Vol]29.5 mmol/GNhxbvi89.0-31.0The [facility] Physician GroupComment on above:Performed By: #### EBS LIPID, EMP BMP #### [facility] [address] [place] [id number] USACreatinine [Mass/Vol]0.73 mg/dLNormal0.60-1.20The [facility] Physician GroupComment on above:Performed By: #### EBS LIPID, EMP BMP #### [facility] [address] [place] [id number] USAGFR/1.73 sq M.predicted MDRD (S/P/Bld) [Vol rate/Area] mL/min/{1.73_m2}NormalThe [facility]ly [facility] Physician GroupComment on above:Performed By: #### EBS LIPID, EMP BMP #### [facility] [address] [place] [id number] USAGlucose [Mass/Vol]85 mg/bGEbmaoh49-096Bkc [facility] Physician GroupComment on above:Performed By: #### EBS LIPID, EMP BMP #### [facility] [address] [place] [address] USAPotassium [Moles/Vol]4.2 mmol/LNormal3.5-5.1The [facility] Physician GroupComment on above:Performed By: #### EBS LIPID, EMP BMP #### [facility] [address] [place] [address] USASodium [Moles/Vol]139 mmol/IDmqwpq449-729Dri [facility] Physician GroupComment on above:Performed By: #### EBS LIPID, EMP BMP #### [facility] [address] [place] [id number] USAUrea nitrogen [Mass/Vol]10 mg/dLNormal7-25The [facility] Physician GroupComment on above:Performed By: #### EBS LIPID, EMP BMP #### [facility] [address] [place] [id number] USACalcium [Mass/volume] in Serum or PlasmaOrdered By: Wes John on 61-51-7516Owbjhxo [Mass/Vol]Calcium [Mass/volume] in Serum or Plasma 8.6-10.3FGrant HospitalCarbon dioxide, total [Moles/volume] in Serum or PlasmaOrdered By: Wes John on 88-46-1906TS2 [Moles/Vol]Carbon dioxide, total [Moles/volume] in Serum or Bxzzel17.0-31.0[facility] HospitalChloride [Moles/volume] in Serum or PlasmaOrdered By: Wes John on 21-61-7659Mdtsmpsk [Moles/Vol]Chloride [Moles/volume] in Serum or Cpurqd66-407JkhhtaxgeKettering Memorial HospitalCholesterol [Mass/volume] in Serum or PlasmaOrdered By: Wes John on 56-76-6709Ullaiksdxgm [Mass/Vol] Cholesterol [Mass/volume] in Serum or Xvaslz184-804KugxciycbKettering Memorial HospitalComment on above:Chol less than 200 mg/dl low riskChol 201-239 mg/dl borderline riskChol 240 mg/dl and greater high riskCholesterol in HDL [Mass/volume] in Serum or PlasmaOrdered By: Wes John on 08-14-2024 Cholesterol in HDL [Mass/Vol]Serum or plasma high density lipoprotein (HDL) cholesterol kbluxlekhii23-57SwztlplclKettering Memorial HospitalComment on above: HDL CHOL ATP-III CLASSIFICATION Cardiovascular RiskHDL > or equal to 60 mg/dL LOWHDL < 40 mg/dL HIGHCholesterol in LDL Calc [Mass/Vol]Ordered By: Wes John on 17-88-9801Ujzfwbbndje in LDL [Mass/Vol]Cholesterol in LDL [Mass/volume] in Serum or Plasma by calculationHigh0-100[facility] HospitalComment on above:LDL ATP III CLASSIFICATIONLDL less than 100 mg/dL OptimalLDL 100-129 mg/dL Near or above ijqyjehKHC318-060 mg/dL Borderline highLDL 160-189 mg/dL HighLDL greater than 189 mg/dL Very highCholesterol in VLDL Calc [Mass/Vol]Ordered By: Wes John on 43-07-7208Ilgesaqzhea in VLDL [Mass/Vol]Cholesterol in VLDL [Mass/volume] in Serum or Plasma by calculation [facility] HospitalCreatinine [Mass/volume] in Serum or Plasma Ordered By: Wes John on 86-23-3858Zyuwvfrfkl [Mass/Vol]Creatinine [Mass/volume] in Serum or Plasma0.60-1.20[facility] Glucose [Mass/volume] in Serum or PlasmaOrdered By: Wes John on 08-14-2024 Glucose [Mass/Vol]Glucose [Mass/volume] in Serum or Lqrbwa31-416OfbygvdwvKettering Memorial HospitalLipid Profileon 48-72-1013Fhomxdxisvj [Mass/Vol]194 mg/dL Neeiyp564-516Ecz [facility] Physician GroupComment on above:Result Comment: Chol less than 200 mg/dl low risk Chol 201-239 mg/dl borderline risk Chol 240 mg/dl and greater high riskPerformed By: #### EBS LIPID, EMP BMP #### [facility] [address] [place] [address] USACholesterol in HDL [Mass/Vol]54 mg/fHMonpph17-75Rdl [facility] County Physician GroupComment on above:Result Comment: HDL CHOL ATP-III CLASSIFICATION Cardiovascular Risk HDL > or equal to 60 mg/dL LOW HDL < 40 mg/dL HIGHPerformed By: #### EBS LIPID, EMP BMP #### [facility] [address] [place] [address] USACholesterol.total/Cholesterol in HDL [Mass ratio]3.6 {ratio}Normal<5.0The [facility] County Physician GroupComment on above:Result Comment: PERFORMED BY: [place] [address] PATHOLOGIST ENROLLMENT MANAGEMENT VICE PRESIDENT CHARITY MENDIETA M.D.Performed By: #### EBS LIPID, EMP BMP #### [facility] [address] [place] [address] USALDL Cholesterol,Lhqmnicstc766 mg/dLHigh0-100The [facility] Physician GroupComment on above:Result Comment: LDL ATP III CLASSIFICATION LDL less than 100 mg/dL Optimal LDL 100-129 mg/dL Near or above optimal LDL 130-159 mg/dL Borderline high LDL 160-189 mg/dL High LDL greater than 189 mg/dL Very highPerformed By: #### EBS LIPID, EMP BMP #### [facility] [address] [place] [address] USATriglyceride w/Bcqftt594 mg/dLNormal0-149The [facility] Physician GroupComment on above:Result Comment: TRIG ATP III CLASSIFICATION TRIG less than 150 mg/dL Normal TRIG 150-199 mg/dL Borderline high TRIG 200-500 mg/dL High TRIG greater than 500 mg/dL Very high Standard traceable to the Center for Disease Conrtrol and Prevention (CDC) test method.Performed By: #### EBS LIPID, EMP BMP #### [facility] [address] [place] [address] USAVLDL SSAZKDPDMJG66 mg/dLNoFormerly [facility] Physician GroupComment on above:Performed By: #### EBS LIPID, EMP BMP #### [facility] [address] [place] [address] USANo Panel InformationOrdered By: Wes John on 51-02-7037Apvdoozeq GFR (CKD-EPI)> 60.0 mL/MinKettering Memorial Hospital [facility]acy Creatinine Clearance (ChemN/Prov[facility] HospitalPotassium [Moles/volume] in Serum or PlasmaOrdered By: Wes John on 08-14-2024 Potassium [Moles/Vol]Potassium [Moles/volume] in Serum or Plasma3.5-5.1FAccess Hospital Daytonerum or plasma anion gap determinationOrdered By: Wes John on 54-47-7292Ryoia gap [Moles/Vol]Serum or plasma anion gap determination6.0-15.0[facility] Southerum or plasma total cholesterol/high density lipoprotein (HDL) cholesterol mass ratOrdered By: Wes John on 04-55-4872Tlcfxwfxkmj.total/Cholesterol in HDL [Mass ratio] Serum or plasma total cholesterol/high density lipoprotein (HDL) cholesterol mass rat<5.0[facility] Southodium [Moles/volume] in Serum or PlasmaOrdered By: Wes John on 91-09-8517Wnikvx [Moles/Vol]Sodium [Moles/volume] in Serum or Dirins560-613QulfpgnrlKettering Memorial Hospital Triglyceride [Mass/volume] in Serum or PlasmaOrdered By: Wes John on 13-16-8667Rroaxnsllopk [Mass/Vol]Triglyceride [Mass/volume] in Serum or Plasma 0-149[facility] HospitalComment on above:TRIG ATP III CLASSIFICATIONTRIG less than 150 mg/dL NormalTRIG 150-199 mg/dL Borderline highTRIG 200-500 mg/dL High TRIG greater than 500 mg/dL Very highStandard traceable to the Center for Disease Conrtrol and Prevention (CDC) test method. Urea nitrogen [Mass/volume] in Serum or PlasmaOrdered By: Wes John on 61-08-5798Eevv nitrogen [Mass/Vol]Urea nitrogen [Mass/volume] in Serum or Plasma 12-15[facility] HospitalNo Panel InformationOrdered By: Hilaria Shell on 92-87-3276Zqikl Strep (POC)[facility] HospitalCBC AUTO DIFFon 57-33-7748BFUG #0.0 103/ulNormal0.0-0.1The CentervilleComment on above: Performed By: #### CBC #### [facility] [address] [place] [address] Dr. Cain Vargassophils/100 WBC (Bld)0.4 %Normal0.2-2.0[facility] Comment on above:Performed By: #### CBC #### [facility] [address] [place] [address] [address] Cain Jaramillo #0.1 103/ulNormal0.0-0.7The CentervilleComment on above: Performed By: #### CBC #### [facility] [address] [place] [address] Dr. Cain Ramseyosinophils/100 WBC (Bld)2.0 %Normal0.9-7.0[facility] Comment on above:Performed By: #### CBC #### [facility] [address] [place] [address] [address] Cain Ramseyrythrocyte distribution width (RBC) [Ratio]12.8 %Edyzcq27.0-15.0 [facility] HospitalComment on above:Performed By: #### CBC #### [facility] [address] [place] [address] Dr. Cain Pearlatocrit (Bld) [Volume fraction]40.6 %Ulzgnv15.0-48.0[facility] HospitalComment on above:Performed By: #### CBC #### [facility] [address] [place] [address] Dr. Yilan ChangHemoglobin (Bld) [Mass/Vol]14.1 g/cZXxjdnd40.0-16.0The CentervilleComment on above:Performed By: #### CBC #### [facility] [address] [place] [address] Dr. Cain Lal #0.01 10e3/ulNormal0.00-0.03The CentervilleComment on above:Performed By: #### CBC #### [facility] [address] [place] [address] Dr. Cain Lla %0.2 %Normal0.0-0.5The CentervilleComment on above: Performed By: #### CBC #### [facility] [address] [place] [address] Dr. Cain Tafoya #1.1 103/ulCritically low1.2-3.8The [place] Comment on above:Performed By: #### CBC #### [facility] [address] [place] [address] Dr. Cain Justicehocytes/100 WBC (Bld)24.6 %Yhduwf83.5-60.0The CentervilleComment on above:Performed By: #### CBC #### [facility] [address] [place] [address] Dr. Cain MaciasUAL DIFF REQNONormalThe CentervilleComment on above: Performed By: #### CBC #### [facility] [address] [place] [address] Dr. Cain Knox (RBC) [Entitic mass]30.1 zmZsbdmb71.7-34.0The CentervilleComment on above:Performed By: #### CBC #### [facility] [address] [place] [address] Dr. Cain Knox (RBC) [Mass/Vol]34.7 g/vQMuojsh18.9-35.2The CentervilleComment on above:Performed By: #### CBC #### [facility] [address] [place] [address] Dr. Cain KnoxV (RBC) [Entitic vol]86.8 cNVkllin97.0-99.0The CentervilleComment on above:Performed By: #### CBC #### [facility] [address] [place] [address] Dr. Cain Obrien #0.3 103/ulNormal0.3-0.8The CentervilleComment on above:Performed By: #### CBC #### [facility] [address] [place] [address] Dr. Cain Davisocytes/100 WBC (Bld)6.5 %Normal1.7-12.0The [place] Comment on above:Performed By: #### CBC #### [facility] [address] [place] [address] Dr. Cain Topete #3.1 103/ulNormal1.4-6.5The CentervilleComment on above:Performed By: #### CBC #### [facility] [address] [place] [address] Dr. Cain Shenutrophils/100 WBC (Bld)66.3 %Lnhtuj15.0-75.0The CentervilleComment on above:Performed By: #### CBC #### [facility] [address] [place] [address] Dr. Cain Doranteslet mean volume (Bld) [Entitic vol]10.9 fLNormal9.5-13.5The CentervilleComment on above:Performed By: #### CBC #### [facility] [address] [place] [address] Dr. Cain McwilliamsPLT141 103/ulCritically qxo464-397Cof CentervilleComment on above:Performed By: #### CBC #### [facility] [address] [place] [address] Dr. Cain McwilliamsRBC4.68 106/ulNormal4.20-5.40The CentervilleComment on above:Performed By: #### CBC #### [facility] [address] [place] [address] Dr. aCin McwilliamsWBC4.6 103/ulNormal4.0-11.0The [facility] on above: Performed By: #### CBC #### [facility] [address] [place] [address] Dr. Cain McwilliamsFREE T4on 70-42-3434Pfip T4 [Mass/Vol]0.99 ng/dLNormal0.76-1.46 The [facility] on above:Performed By: #### FT4 #### [facility] [address] [place] [address] Dr. Cain McwilliamsGLYCOHEMOGLOBIN A1Con 38-32-1934QCE RECOMMENDATIONSEE BELOWSelect Medical Specialty Hospital - TrumbullComtrinity health [facility] on above:Result Comment: ADA RECOMMENDED LIMIT 4.0 - 6.0 ADA THERAPEUTIC TARGET < 7.0 ACTION SUGGESTED > 7.0Performed By: #### A1C #### [facility] [address] [place] [address] Dr. Cain McwilliamsGlucose [Mass/Vol]97 mg/dLNoUniversity Hospitals Beachwood Medical CenterComtrinity health [facility] on above:Performed By: #### A1C #### [facility] [address] [place] [address] Dr. Cain McwilliamsHbA1c (Bld) [Mass fraction]5.0 %Normal4.5-6.2The [facility] on above:Performed By: #### A1C #### [facility] [address] [place] [address] Dr. Cain McwilliamsPROTIMEon 89-26-4319HCY Coag (PPP) [Relative time]0.95 {INR} NormalUniversity Hospitals Ahuja Medical Center on above:Performed By: #### CBC #### [facility] [address] [place] [address] Dr. Cain Silva GUIDELINESSEE [facility] Medical CenterComment on above:Result Comment: DESIRED INR: 2.0 - 3.0 CONDITIONS NOT LISTED BELOW 2.5 - 3.5 FOR PROSTHETIC HEART VALVE REPLACEMENT 2.5 - 3.5 RECURRENT THROMBOSIS Performed By: #### CBC #### [facility] [address] [place] [address] [address] Cain McwilliamsPT Coag (PPP) [Time]10.1 sNormal9.0-11.6The [place] Comment on above:Performed By: #### CBC #### [facility] [address] [place] [address] Dr. Cain Bahena 21-26-4990gZZM Coag (Bld) [Time]29.4 cGagbtv33.3-36.2The CentervilleComment on above:Performed By: #### CBC #### [facility] [address] [place] [address] Dr. Cain Smith 60-66-9296VXP4.596 uIU/mLNormal0.358-3.740The CentervilleComment on above:Performed By: #### TSH #### [facility] [address] [place] [address] Dr. Cain McwilliamsUS PELVIS AND TRANSVAGon 83-57-6907ZC PELVIS AND TRANSVAG EXAMINATION: US PELVIS AND [...] Electronically authenticated by: MALICK ESPINOZA Date: 2022-06-22 16:47NoMer[facility] AUTO DIFFon 23-19-9215XEMQ #0.0 103/ulNormal0.0-0.1The CentervilleComment on above:Performed By: #### CBC #### [facility] [address] [place] [address] [address] Cain McwilliamsBasophils/100 WBC (Bld)0.4 %Normal0.2-2.0The [facility] on above:Performed By: #### CBC #### [facility] [address] [place] [address] Dr. Cain Jaramillo #0.0 103/ulNormal0.0-0.7The CentervilleComment on above: Performed By: #### CBC #### [facility] [address] [place] [address] Dr. Cain Ramseyosinophils/100 WBC (Bld)0.8 %Critically low0.9-7.0The [facility]terson Medical Centerment on above:Performed By: #### CBC #### [facility] [address] [place] [address] Dr. Cain Ramseyrythrocyte distribution width (RBC) [Ratio]12.8 %Yefktf30.0-15.0 The CentervilleComment on above:Performed By: #### CBC #### [facility] [address] [place] [address] Dr. Cain McwilliamsHematocrit (Bld) [Volume fraction]41.6 %Ptqnqz45.0-48.0The CentervilleComment on above:Performed By: #### CBC #### [facility] [address] [place] [address] Dr. Cain McwilliamsHemoglobin (Bld) [Mass/Vol]13.8 g/uGIlhaqc29.0-16.0The CentervilleComment on above:Performed By: #### CBC #### [facility] [address] [place] [address] Dr. Cain Lal #0.01 10e3/ulNormal0.00-0.03The CentervilleComment on above:Performed By: #### CBC #### [facility] [address] [place] [address] Dr. Cani Lal %0.2 %Normal0.0-0.5The CentervilleComment on above: Performed By: #### CBC #### [facility] [address] [place] [address] Dr. Cain Tafoya #1.3 103/ulNormal1.2-3.8The CentervilleComment on above:Performed By: #### CBC #### [facility] [address] [place] [address] Dr. Cain Justicehocytes/100 WBC (Bld)27.1 %Ohaljt75.5-60.0The CentervilleComment on above:Performed By: #### CBC #### [facility] [address] [place] [address] Dr. Cain Singer DIFF REQNONormalThe CentervilleComment on above: Performed By: #### CBC #### [facility] [address] [place] [address] Dr. Cain Cooper (RBC) [Entitic mass]30.5 lyBgyjyy61.7-34.0The CentervilleComment on above:Performed By: #### CBC #### [facility] [address] [place] [address] Dr. Cain Knox (RBC) [Mass/Vol]33.2 g/nEYhtyfk70.9-35.2The CentervilleComment on above:Performed By: #### CBC #### [facility] [address] [place] [address] Dr. Cain Gomez (RBC) [Entitic vol]91.8 gVCgpnyb95.0-99.0The CentervilleComment on above:Performed By: #### CBC #### [facility] [address] [place] [address] Dr. Cain Obrien #0.3 103/ulNormal0.3-0.8The CentervilleComment on above:Performed By: #### CBC #### [facility] [address] [place] [address] Dr. Yilan ChangMonocytes/100 WBC (Bld)6.3 %Normal1.7-12.0The [place] Comment on above:Performed By: #### CBC #### [facility] [address] [place] [address] Dr. Cain Topeet #3.1 103/ulNormal1.4-6.5The CentervilleComment on above:Performed By: #### CBC #### [facility] [address] [place] [address] Dr. Cain Shenutrophils/100 WBC (Bld)65.2 %Rrvtqp32.0-75.0The CentervilleComment on above:Performed By: #### CBC #### [facility] [address] [place] [address] Dr. Cain Valentine mean volume (Bld) [Entitic vol]11.3 fLNormal9.5-13.5The CentervilleComment on above:Performed By: #### CBC #### [facility] [address] [place] [address] Dr. Cain ChirinosT149 103/ulCritically jxf263-433Qce CentervilleComment on above:Performed By: #### CBC #### [facility] [address] [place] [address] Dr. Cain ChristyC4.53 106/ulNormal4.20-5.40The CentervilleComment on above:Performed By: #### CBC #### [facility] [address] [place] [address] Dr. Cain McwilliamsWBC4.8 103/ulNormal4.0-11.0The CentervilleComment on above: Performed By: #### CBC #### [facility] [address] [place] [address] Dr. Cain Cui QUANT HCGon 17-63-1070RRF QUANT<1NormalThe [place] Comment on above:Performed By: #### CBC #### [facility] [address] [place] [address] Dr. Cain Benoit RANGESEE BELOWCleveland Clinic Hillcrest [facility] on above: Result Comment: 5-50 0-1 WEEK 40-300 1-2 WEEKS 100-1,000 2-3 WEEKS 500-6,000 3-4 WEEKS 5,000-200,000 1-2 MONTHS 10,000-100,000 2-3 MONTHS 3,000-50,000 2ND TRIMESTER 1,000-50,000 3RD TRIMESTERPerformed By: #### CBC #### [facility] [address] [place] [address] Dr. Cain Mckeon ACOG PANEL 2: 30 to 65on 09-02-2021..NormalSelect Medical [facility] Rehabilitation HospitalComtrinity health [facility] on above:Result Comment: Performed at: WBPerformed By: #### CBC #### [facility] [address] [place] [address] Dr. Cain Reese Gdln ACOG Ugigijh85-58EdkwelZqdOhioHealth Pickerington Methodist HospitalComment on above:Performed By: #### CBC #### [facility] [address] [place] [address] Dr. Cain McwilliamsDIAGNOSIS:CommentCleveland Clinic Hillcrest Hospital on above: Result Comment: NEGATIVE FOR INTRAEPITHELIAL LESION OR MALIGNANCY. THIS SPECIMEN WAS RESCREENED PART OF OUR APPLIED PSYCHOLOGY CHAIR PROGRAM. Performed at: WBPerformed By: #### CBC #### [place] [address] Dr. Cain McwilliamsHPV AptimaNegativeNormalNegativeUniversity Hospitals Ahuja Medical Center on above:Result Comment: This nucleic acid amplification test detects fourteen high-risk HPV types (16,18,31,33,35,39,45,51,52,56,58,59,66,68) without differentiation. Performed at: =GPerformed By: #### CBC #### [facility] [address] [place] [address] Dr. Cain McwilliamsMethodology:CommentCleveland Clinic Hillcrest Hospital on above: Result Comment: This liquid based ThinPrep(R) pap test was screened with the use of an image guided system. Performed at: WBPerformed By: #### CBC #### [facility] [address] [place] [address] Dr. Cain McwilliamsNote:[facility] on above:Result Comment: The Pap smear is a screening test designed to aid in the detection of premalignant and malignant conditions of the uterine cervix. It is not a diagnostic procedure and should not be used as the sole means of detecting cervical cancer. Both false-positive and false-negative reports do occur. . Performed at: WBPerformed By: #### CBC #### [facility] [address] [place] [address] Dr. Cain McwilliamsPerformed by:[facility] on above: Result Comment: Sasha Odonnell, Supervisor Mapping (ASCP) Performed at: WBPerformed By: #### CBC #### [facility] [address] [place] [address] Dr. Cain McwilliamsQC reviewed by:[facility] on above:Result Comment: Shu Silver, Supervisory Supervisor Mapping (ASCP) Performed at: WBPerformed By: #### CBC #### [facility] [address] [place] [address] Dr. Cain McwilliamsSpecimen adequacy:[facility] on above:Result Comment: Satisfactory for evaluation. Endocervical and/or squamous metaplastic cells (endocervical component) are present. Performed at: WBPerformed By: #### CBC #### [facility] [address] [place] [address] Dr. Cain McwilliamsUS PELVIS AND TRANSVAGon 99-95-8163TH PELVIS AND TRANSVAG EXAMINATION: US PELVIS AND [...] Electronically authenticated by: MALICK ESPINOZA Date: 2021-08-30 10:29NoUniversity Hospitals Beachwood Medical CenterUS SINGLE QUAD RT UPPERon [id number] SINGLE QUAD RT UPPER EXAMINATION: US SINGLE [...] Electronically authenticated by: MALICK ESPINOZA Date: 2021-08-30 10:31[facility] W MANUAL DIFFon 54-40-1107ULFPDFBJ LYMPH #NormalThe CentervilleComment on above:Performed By: #### MARU #### [facility] [address] [place] [address] Dr. Cain McwilliamsATYPICAL LYMPH %NormalThe CentervilleComment on above: Performed By: #### MARU #### [facility] [address] [address] [address] Cain Henderson #0.2 103/ulNormal0.0-0.3The CentervilleComment on above:Performed By: #### MARU #### [facility] [address] [place] [address] Dr. Cain Henderson %3 %Normal0-5The CentervilleComment on above:Performed By: #### MARU #### [facility] [address] [address] [address] Cain Bai #0.00 103/ulNormal0.00-0.10The [facility] HospitalComment on above:Performed By: #### MARU #### [facility] [address] [address] [address] Cain Bai %0.0 %Critically low0.2-2.0The [facility] HospitalComment on above:Performed By: #### MARU #### [facility] [address] [place] [address] Dr. Cain Cuellar #NormalThe [facility] HospitalComment on above:Performed By: #### MARU #### [facility] [address] [place] [address] Dr. Cain Cuellar %NormalThe [facility] HospitalComment on above:Performed By: #### MARU #### [facility] [address] [place] [address] Dr. Cain McwilliamsCORRECTED WBCNormal4.0-11.0The CentervilleComment on above: Performed By: #### CBCISMAEL #### [facility] [address] [place] [address] Dr. Cain Gannon #0.00 103/ulNormal0.00-0.70The CentervilleComment on above:Performed By: #### CBCISMAEL #### [facility] [address] [place] [address] Dr. Cain Gannon%0.0 %Critically low0.9-7.0The CentervilleComment on above:Performed By: #### CBCISMAEL #### [facility] [address] [place] [address] Dr. Cain McwilliamsHCT44.2 %Kmdkub94.0-48.0The CentervilleComment on above: Performed By: #### CBCISMAEL #### [facility] [address] [place] [address] Dr. Cain McwilliamsHGB14.6 g/crJljbcl44.0-16.0The CentervilleComment on above: Performed By: #### MARU #### [facility] [address] [address] [address] Cain Rust #0.34 103/ulCritically low1.20-3.80The [place] Comment on above:Performed By: #### MARU #### [facility] [address] [address] [address] Cain Rust%5.0 %Critically low20.5-60.0The CentervilleComment on above:Performed By: #### MARU #### [facility] [address] [place] [address] Dr. Cain McwilliamsMCH30.0 cbSngiqy70.7-34.0The CentervilleComment on above: Performed By: #### MARU #### [facility] [address] [place] [address] Dr. Cain KnoxHC33.0 g/bhQduklf38.9-35.2The CentervilleComment on above:Performed By: #### MARU #### [facility] [address] [place] [address] Dr. Cain McwilliamsMCV90.9 dIOhoocg32.0-99.0The CentervilleComment on above: Performed By: #### MARU #### [facility] [address] [place] [address] Dr. Cain CooperOCYTE #NormalThe CentervilleComment on above: Performed By: #### MARU #### [facility] [address] [address] [address] Cain CooperOCYTE %NormalThe CentervilleComment on above: Performed By: #### MARU #### [facility] [address] [place] [address] Dr. Cain Colon#0.21 103/ulCritically low0.30-0.80The [facility] Comment on above:Performed By: #### CBCISMAEL #### [facility] [address] [address] [address] Cain Colon%3.0 %Normal1.7-12.0The CentervilleComment on above: Performed By: #### CBCISMAEL #### [facility] [address] [address] [address] Cain McwilliamsMPV11.3 fLNormal9.5-13.5The CentervilleComment on above: Performed By: #### CBCMAN #### [facility] [address] [address] [address] Cain Wagner #NormalThe CentervilleComment on above:Performed By: #### CBCISMAEL #### [facility] [address] [address] [address] Cain HaleyOCYTE %NormalThe CentervilleComment on above:Performed By: #### CBCISMAEL #### [facility] [address] [address] [address] Cain McwilliamsNRBCNormalThe CentervilleComment on above:Performed By: #### CBCISMAEL #### [facility] [address] [place] [address] Dr. Cain ChirinosT153 103/vfVieugo516-620Dxb [facility] Centerment on above: Performed By: #### CBCISMAEL #### [facility] [address] [address] [address] Cain McwilliamsRBC4.86 106/ulNormal4.20-5.40The [facility] Centerment on above:Performed By: #### CBCISMAEL #### [facility] [address] [address] [address] Cain McwilliamsRDW12.5 %Wvoygh78.0-15.0The CentervilleComment on above: Performed By: #### CBCISMAEL #### [facility] [address] [place] [address] Dr. Cain Chinchilla #6.14 103/ulNormal1.40-6.50The [facility] HospitalComment on above:Performed By: #### CBCMAN #### [facility] [address] [place], [place] [address] Dr. Cain Chinchilla %89.0 %Critically high43.0-75.0The CentervilleComment on above:Performed By: #### CBCISMAEL #### [facility] [address] [place], [place] [address] Dr. Cain McwilliamsWBC6.9 103/ulNormal4.0-11.0The CentervilleComment on above: Performed By: #### CBCMAN #### [facility] [address] [place], [place] [address] Dr. Cain McwilliamsCT ABD/PELV W CONon 26-73-5135AG ABD/PELV W CONEXAMINATION: CT ABD/PELV W CON [...] Electronically authenticated by: ISHMAEL ESPINALARDEN Date: 2021-08-24 17:39NoUniversity Hospitals Beachwood Medical CenterCULTURE BLOODon 52-89-4904Uvqwpbonvlp examination of blood, cultureCulture Observations: No growth at 5 days.NormalSelect Medical Trihealth Rehabilitation HospitalComment on above:Performed By: #### CBC #### [facility] [address] [place] [address] Dr. Cain McwilliamsMicroscopic examination of blood, cultureCulture Observations: No growth at 5 daysNoUniversity Hospitals Beachwood Medical CenterComment on above:Performed By: #### CBC #### [facility] [address] [place] [address] Dr. Cain McwilliamsCovid-19 PCR (CVDTB)on 93-25-0716YLZQ-CoV-2 (COVID-19) RNA DANIELLE+probe Ql (Unsp spec)Not detectedNormalNOT DETECTEDSelect Medical Trihealth Rehabilitation Hospital Comment on above:Result Comment: When diagnostic [...] for this test is supported by the [place] of Health and Human Service's declaration that [...] longer be used).Performed By: #### CVDTBH #### [facility] [address] [address] [address] Cain Jefferson URINE PROFILEon 05-11-3984Hvdnkwwcl Ql (U)NegativeNormal NEGATIVESelect Medical Trihealth Rehabilitation HospitalComment on above:Performed By: #### CBC #### [facility] [address] [address] [address] Cain McwilliamsClmadison (U)SL CLOUDYAbnormalCLEARThe CentervilleComment on above:Performed By: #### CBC #### [facility] [address] [address] [address] Cain Monterrosolor (U)YELLOWNormalYELLOWSelect Medical Trihealth Rehabilitation HospitalComment on above: Performed By: #### CBC #### [facility] [address] [place] [address] Dr. Cain Montenegro micrscopic examination will be performed if indicated. NormalSelect Medical Trihealth Rehabilitation HospitalComment on above:Performed By: #### CBC #### [facility] [address] [address] [address] Cain McwilliamsGlucose Ql (U)NegativeNormalNEGATIVESelect Medical Trihealth Rehabilitation HospitalComtrinity health [facility] on above:Performed By: #### CBC #### [facility] [address] [address] [address] Cain McwilliamsHemoglobin Ql (U)NegativeNormalNEGATIVESumma Health on above:Performed By: #### CBC #### [facility] [address] [address] [address] Cain McwilliamsKetones Ql (U)NegativeNormalNEGATIVESelect Medical Trihealth Rehabilitation HospitalComment on above:Performed By: #### CBC #### [facility] [address] [address] [address] Cain McwilliamsLEUKOCYTESNegativeNormalNEGATIVESelect Medical Trihealth Rehabilitation HospitalComtrinity health [facility] hospital on above:Performed By: #### CBC #### [facility] [address] [place] [address] Dr. Cain McwilliamsNitrite Ql (U)NegativeNormalNEGATIVESelect Medical Trihealth Rehabilitation HospitalComment on above:Performed By: #### CBC #### [facility] [address] [address] [address] Cain McwilliamspH (U)5.5 [pH]Normal5-9The CentervilleComment on above: Performed By: #### CBC #### [facility] [address] [address] [address] Cain McwilliamsSPEC GRAVITY1.664Gxpmup2.005-<=1.025The CentervilleComment on above:Performed By: #### CBC #### [facility] [address] [address] [address] Cain Ni PROTEINNegativeNormalNEGATIVE/ TRACEThe [place] Comment on above:Performed By: #### CBC #### [facility] [address] [place] [address] Dr. Cain Wright MICRO INDNOT INDICATEDNoalThe CentervilleComment on above:Performed By: #### CBC #### [facility] [address] [address] [address] Cain Morrowbilinogen Qn (U)0.2 {Claire'U}/dLNormal0.2 - 1.0The CentervilleComment on above:Performed By: #### CBC #### [facility] [address] [place] [address] Dr. Cain McwilliamsLACTATE/LACTIC ACIDon 42-73-9905Fortaid [Moles/Vol]2.1 mmol/L Critically high0.7-2.0The CentervilleComment on above:Performed By: #### LACT #### [facility] [address] [place] [address] Dr. Cain McwilliamsLIPASEon 64-18-4693Xgcisz [Catalytic activity/Vol]102.0 U/LNormal 23.0-300.0The CentervilleComment on above:Performed By: #### CMP, LIPA #### [facility] [address] [place] [address] Dr. Cain McwilliamsPREG HCG QUALon 45-86-2849RNWAHVLEA, QUALNegativeNormalNEGATIVE The CentervilleComment on above:Performed By: #### CBC #### [facility] [address] [address] [address] Cain Orellana 14(COMP METB)on 91-09-4334Xqgomtp [Mass/Vol]3.7 g/dLNormal 3.4-5.0The CentervilleComment on above:Performed By: #### CMP, LIPA #### [facility] [address] [address] [address] Cain McwilliamsAlbumin/Globulin [Mass ratio]1.1 {ratio}NormalThe CentervilleComment on above:Performed By: #### CMP, LIPA #### [facility] [address] [place] [address] Dr. Cain Gavin [Catalytic activity/Vol]103 U/LFefwhx44-917Xah CentervilleComment on above:Performed By: #### CMP, LIPA #### [facility] [address] [place] [address] Dr. Cain Taylor [Catalytic activity/Vol]18 U/IEhvieh70-00Nrg [facility] Centerment on above:Performed By: #### CMP, LIPA #### [facility] [address] [place] [address] Dr. Cain Bravo gap [Moles/Vol]15.3 mmol/LNormalThe [facility] Comment on above:Performed By: #### CMP, LIPA #### [facility] [address] [place] [address] Dr. Cain McwilliamsAST [Catalytic activity/Vol]13 U/LCritically kfd31-82Vyr [facility] Centerment on above:Performed By: #### CMP, LIPA #### [facility] [address] [place] [address] Dr. Cain McwilliamsBilirubin [Mass/Vol]0.7 mg/dLNormal0.2-1.3The [facility] Comment on above:Performed By: #### CMP, LIPA #### [facility] [address] [place] [address] Dr. Cain McwilliamsCalcium [Mass/Vol]8.3 mg/dLCritically low8.5-10.1The CentervilleComment on above:Performed By: #### CMP, LIPA #### [facility] [address] [address] [address] Cain McwilliamsChloride [Moles/Vol]102 mmol/UMjkpbp87-227Axp [facility] Comment on above:Performed By: #### CMP, LIPA #### [facility] [address] [address] [address] Cain McwilliamsCO2 [Moles/Vol]22.2 mmol/KJmfomq44.0-30.0The [facility] Comment on above:Performed By: #### CMP, LIPA #### [facility] [address] [place] [address] Dr. Cain McwilliamsCreatinine [Mass/Vol]0.93 mg/dLNormal0.52-1.04The CentervilleComment on above:Performed By: #### CMP, LIPA #### [facility] [address] [place] [address] Dr. Cain RamseyGFR-AF SOUTH KOREAN>60Normal>=60The CentervilleComment on above:Performed By: #### CMP, LIPA #### [facility] [address] [place] [address] Dr. Cain RamseyGFR-NON AF SOUTH KOREAN>60Normal>=60The CentervilleComment on above:Performed By: #### CMP, LIPA #### [facility] [address] [place] [address] Dr. Cain McwilliamsGlobulin (S) [Mass/Vol]3.5 g/dLNormalThe CentervilleComment on above:Performed By: #### CMP, LIPA #### [facility] [address] [place] [address] Dr. Cain McwilliamsGlucose [Mass/Vol]108 mg/dLCritically ject71-061Qtb CentervilleComment on above:Performed By: #### CMP, LIPA #### [facility] [address] [address] [address] Cain McwilliamsPotassium [Moles/Vol]3.5 mmol/LNormal3.4-5.0The [facility] Comment on above:Performed By: #### CMP, LIPA #### [facility] [address] [address] [address] Cain McwilliamsProtein [Mass/Vol]7.2 g/dLNormal6.1-8.2The [facility] Comment on above:Performed By: #### CMP, LIPA #### [facility] [address] [address] [address] Cain McwilliamsSodium [Moles/Vol]136 mmol/LCritically sox616-787Xbt CentervilleComment on above:Performed By: #### CMP, LIPA #### [facility] [address] [address] [address] Cain McwilliamsUrea nitrogen [Mass/Vol]11.0 mg/dLNormal7.0-18.0The CentervilleComment on above:Performed By: #### CMP, LIPA #### [facility] [address] [address] [address] Cain McwilliamsUrea nitrogen/Creatinine [Mass ratio]11.8 mg/mgNormalThe CentervilleComment on above:Performed By: #### CMP, LIPA #### [facility] [address] [address] [address] Cain McwilliamsAutomated basophil %on 68-02-4194Flztzilnd/100 WBC (Bld)0.4 % [facility] CtrAutomated basophil counton 99-34-1851Kkkrofpif (Bld) [#/Vol]0.0 10*3/uL0.0-0.2FBlanchard Valley [facility] CtrAutomated blood lymphocyte count (number/volume)on 25-47-5677Ptvkuyalovx (Bld) [#/Vol]0.8 10*3/uL1.00-4.8[facility] CtrAutomated blood lymphocyte count as percentage of total leukocyteson 96-74-6485Wsoqhsevxpm/100 WBC (Bld)21.0 % [facility] CtrAutomated blood monocyte counton 02-11-2019 Monocytes (Bld) [#/Vol]0.2 10*3/uL0.0-0.8[facility] CtrAutomated blood platelet count (count/volume)on 88-62-3814Ejafcbjum (Bld) [#/Vol]141 10*3/sQ464-321FopaasmagFostoria City Hospital CtrAutomated blood platelet mean volume measurementon 43-62-8620Hlkyzsez mean volume (Bld) [Entitic vol]9.4 fL6.3-10.7 [facility] CtrAutomated eosinophil %on 14-85-9906Fibuvyooqcq/100 WBC (Bld)1.1 %[facility] CtrAutomated eosinophil counton 42-06-3055Sdibcpodnnz (Bld) [#/Vol]0.0 10*3/uL0.0-0.45[facility] CtrAutomated erythrocyte distribution width ratioon 18-87-6740Qotbfcxorxh distribution width (RBC) [Ratio]12.4 %11.9-15.3FBlanchard Valley Health [facility] Ctr Automated erythrocyte mean corpuscular hemoglobin (mass per erythrocyte)on 91-25-1641EJL (RBC) [Entitic mass]30.3 pg24.7-34.3FBlanchard Valley Health [facility] Ctr Automated erythrocyte mean corpuscular hemoglobin concentration measurement (mass/volon 79-86-9883CXLI (RBC) [Mass/Vol]33.8 g/dL32.0-35.0[facility] CtrAutomated erythrocyte mean corpuscular volumeon 03-65-8789CZB (RBC) [Entitic vol]89.6 sV34-899KqyyrpxgjFostoria City Hospital CtrAutomated erythrocytes count in urine sediment (number/area)on 58-99-8124AHO Auto (Urine sed) [#/Area] 10-19 [HPF][facility] CtrAutomated leukocytes count in urine sediment (number/area)on 90-48-1341VHT Auto (Urine sed) [#/Area]3-4 [HPF] [facility] CtrAutomated monocyte %on 50-03-0488Dqkaxqmjq/100 WBC (Bld)5.6 %[facility] CtrAutomated neutrophil %on 02-11-2019 Neutrophils/100 WBC (Bld)71.9 %[facility] CtrAutomated urine color determinationon 56-72-7323Byevl (U)YellowYellowFostoria City Hospital CtrBlood erythrocytes automated count (number/volume)on 70-34-0567VZK (Bld) [#/Vol]4.66 10*6/uL3.60-5.00[facility] CtrBlood hemoglobin measurement (mass/volume)on 32-33-2554Heaauwbvop (Bld) [Mass/Vol]14.1 g/dL 11.8-15.4FBlanchard Valley Health [facility] CtrBlood leukocytes automated count (number/volume)on 58-63-7962JIS (Bld) [#/Vol]3.8 10*3/uL3.8-11.6FBlanchard Valley Health System [facility] CtrBlood neutrophil count by automated method (number/volume)on 31-31-0461Dmexgjqnbgm (Bld) [#/Vol]2.7 10*3/uL1.8-7.7FBlanchard Valley Health System [facility] CtrEstimated glomerular filtration rate (GFR) non- Americanon 02-11-2019 GFR/1.73 sq M predicted among non-blacks MDRD (S/P/Bld) [Vol rate/Area] mL/min/{1.73_m2}[facility] CtrHematocrit [Volume Fraction] of Blood by Automated counton 98-06-6184Uhcelxxuvb (Bld) [Volume fraction]41.7 % 34.0-46.4FBlanchard Valley Health [facility] CtrOtheron 18-08-9675ING/1.73 sq M.predicted MDRD (S/P/Bld) [Vol rate/Area]mL/min/{1.73_m2}[facility] Comment on above:GFR estimated reference range: According to KDOQI guidelines, <60 ml/min/1.73m2 is sufficient todiagnose a patient with chronic kidney disease.Nucleated RBC/100 WBC (Bld) [Ratio]0.1 %0-0.5FBlanchard Valley Health System [facility] CtrPharmacy Creatinine Clearance (Chem94.9889571761EvdljzadwFostoria City Hospital CtrSerum or plasma calcium measurement (mass/volume)on 58-46-3652Ljdakqj [Mass/Vol]9.5 mg/dL8.2-10.2FBlanchard Valley Health System [facility]uff[facility] CtrSerum or plasma chloride measurement (moles/volume)on 22-70-6359Neabhdmz [Moles/Vol]107 mmol/L 95-114Memorial Health SystemSerum or plasma creatinine measurement with calculation of estimated glomerular filtron 17-66-3059Pvaagkzkaa [Mass/Vol]0.86 mg/dL0.44-1.03[facility] CtrSerum or plasma glucose measurement (mass/volume)on 00-24-9938Ewflefz [Mass/Vol]103 mg/rA91-356YtmuwcyobMemorial Health SystemComment on above:ADA recommended reference rangeRandom Glucose Reference Range is dependent on time and content of last meal. Glucose of more than 200 mg/dL in a nonstressed, ambulatory subject supports the diagnosisof Diabetes Mellitus.Serum or plasma potassium measurement (moles/volume)on 72-38-5763Nxsvypaiz [Moles/Vol]3.9 mmol/L3.5-5.1FParma [facility] Serum or plasma sodium measurement (moles/volume)on 06-58-5435Ceryns [Moles/Vol] 139 mmol/N083-179YwtiqoqopMemorial Health SystemSerum or plasma total carbon dioxide measurement (moles/volume)on 95-14-7894YH8 [Moles/Vol]24.6 mmol/L 22.0-30.0[facility] Health SystemSerum or plasma urea nitrogen measurement (mass/volume)on 43-34-3341Xrvp nitrogen [Mass/Vol]8 mg/dL9-23[facility] SystemSpecific gravity of Urine by Automated test stripon 02-11-2019 Specific gravity (U) [Rel density]1.0211.001-1.030[facility] Squamous epithelial cells detection in urine sediment by light microscopyon 95-13-7635Hwvluushnu cells.squamous LM Ql (Urine sed)5-9 [HPF][facility] CtrUrinalysison 67-34-3498Lbogegb casts LM Ql (Urine sed)0-8 [LPF] [facility] SystemUrine bacteria detection by automated methodon 07-13-9264Reqgnrrs Auto Ql (U)None seenNone SeenFirelands Regional Medical Ctr Urine clarity by refractometry automatedon 01-98-7617Gtstegj Refractometry automated (U)ClearClearFBlanchard Valley [facility] CtrUrine glucose measurement by automated test strip (mass/volume)on 18-70-1810Idtzanf Auto test strip (U) [Mass/Vol]Normal mg/dLNormAdams County HospitalUrine hemoglobin detection by automated test stripon 56-25-4894Lbpscuucyn Auto test strip Ql (U) 2+NegativeFostoria City Hospital CtrUrine human chorionic gonadotropin (hCG) detection by immunoassayon 11-76-4978HPF ( test) Ql (U)Negative NegativeMemorial Health SystemUrine ketones measurement by automated test strip (mass/volume)on 88-18-8219Pqzdazm (U) [Mass/Vol]NegativeNegative [facility] SystemUrine leukocyte esterase detection by automated test stripon 00-48-7928Yhtropzbf esterase Auto test strip Ql (U)NegativeNegative [facility] SystemUrine nitrite detection by test stripon 02-11-2019 Nitrite Ql (U)NegativeNegRegency Hospital Company CtrUrine pH measurement by automated test stripon 99-86-6981kI (U)5.0 [pH]5.0-9.0[facility] CtrUrine protein measurement by automated test strip (mass/volume)on 46-29-7201Ywhaajd (U) [Mass/Vol]NegativeNegRegency Hospital Company Ctr Urine total bilirubin detection by test stripon 02-66-5129Vdlpfnxqu Ql (U) NegativeNegOhio State Health SystemUrine urobilinogen measurement by automated test strip (mass/volume)on 78-82-8101Lzlmpvqsrpuk (U) [Mass/Vol]Normal mg/dLNormSumma Health Ctr Vital Signs Date TimeVital SignValuePerforming SksxdcpumTenxjqyr69-09-3493 10:32-0400Body mass index (BMI) [Ratio]34.95 kg/j6Qkrfw Christian DO Work Phone: [facility] HospitalDgwidlyzye83-54-2908 10:32-0400Body oxzxxm62.25 kgCoreCortona3D DO Work Phone: NOExcelsior [facility] Medical CenterVvmrpndlpq47-69-7439 10:32-0400Diastolic blood dsqhobme81 mm[Hg]Jaxson Christian DO Work Phone: [phone])331-[facility] HospitalDynlnaydub51-95-6413 10:32-0400Systolic blood dhngnosr735 mm[Hg]Jaxson Christian DO Work Phone: [phone])081-[facility] HospitalKxdvdqdcqw25-40-2718 09:34-0400Body mass index (BMI) [Ratio]34.95 kg/f2Plbhk Christian DO Work Phone: [phone] [place], [place] [address]Cfxqmtqabb09-28-8924 09:34-0400Body bvotpb57.25 kgCorey Christian DO Work Phone: [phone])[address] [place], [place] 4410110-20-2025 09:34-0400Diastolic blood exgkamzl62 mm[Hg]Jaxson Christian DO Work Phone: [phone]10-20-2025 09:34-0400Systolic blood ikcrlfmj654 mm[Hg]Jaxson Christian DO Work Phone: [phone]09-20-2025 12:39-0400Body umbsmz690.1 cmG. Raymundo Prieto DO Work Phone: [phone]09-20-2025 12:39-0400 Body mass index (BMI) [Ratio]34.4 kg/m2G. Raymundo Prieto DO Work Phone: [phone] [place], [place] 6671609-20-2025 12:39-0400 Body flakocpdawa59.6 [degF]Gabino Prieto DO Work Phone: [phone] [place], [place] 1447609-20-2025 12:39-0400 Body omealh47.89 kgG. Raymundo Prieto DO Work Phone: [phone] [place], [place] 1447609-20-2025 12:39-0400 Diastolic blood ooubzooj25 mm[Hg]Gabino Prieto DO Work Phone: [phone] [place], [place] 1447609-20-2025 12:39-0400 Heart rate77 /Shay. Raymundo Prieto DO Work Phone: [phone] [place], [place] 1447609-20-2025 12:39-0400 Respiratory rate18 /ShaySantana Prieto DO Work Phone: [phone] [place], [place] 1447609-20-2025 12:39-0400 SaO2% (BldA) [Mass fraction]99 %Gabino Prieto DO Work Phone: [phone] [place], [place] 1447609-20-2025 12:39-0400 Systolic blood cgockkws545 mm[Hg]Gabino Prieto DO Work Phone: [phone] [place], [place] 1447608-07-2025 13:46-0400 Body heuhjehdhyl21.29 [degF]Genaro Cartagena DMD Work Phone: [phone] [place], [place] 6747808-07-2025 13:46-0400Diastolic blood aisvogss25 mm[Hg]Genaro Cartagena DMD Work Phone: [phone] [place], [place] 6747808-07-2025 13:46-0400Heart rate71 /minKunal Mitzi DMD Work Phone: [phone] [place], [place] 6747808-07-2025 13:46-0400Systolic blood mm[Hg]Genaro Cartagena DMD Work Phone: [phone])[address] [place], [place] 6747804-21-2025 10:23-0400Body ckusfc080.1 cmEllen Warren CLOUD OPERATIONS ENGINEER Work Phone: [facility] HospitalXgrvjhnkgi70-61-6475 10:23-0400Body mass index (BMI) [Ratio]34.45 kg/j4LbgvmEllen Warren CLOUD OPERATIONS ENGINEER Work Phone: NOEx[facility] Medical CenterQqfouoqizr97-88-8051 10:23-0400Body temperature 97.11 [degF]Ellen Warren CLOUD OPERATIONS ENGINEER Work Phone: NOExcelsior Springs Medical CenterOdupnuzzts45-92-8524 10:23-0400Body ylqiwz69.89 kgEllen Warren CLOUD OPERATIONS ENGINEER Work Phone: NOExcels[facility] Medical CenterRxenzjewtd24-55-7621 10:23-0400Diastolic blood mm[Hg]Ellen Warren CLOUD OPERATIONS ENGINEER Work Phone: [facility] HospitalDsuqfhgyfj25-26-1831 10:23-0400Heart rate90 /min Ellen Kelvin CLOUD OPERATIONS ENGINEER Work Phone: NOExcelsior Springs Medical CenterOfjucwuysa90-67-8413 10:23-2448KwC0% (BldA) [Mass fraction]98 %Ellen Kelvin CLOUD OPERATIONS ENGINEER Work Phone: NOExcels[facility] Medical CenterOslxrdawks94-51-9902 10:23-0400Systolic blood kyzbwtuf678 mm[Hg]Ellen Warren CLOUD OPERATIONS ENGINEER Work Phone: [facility] HospitalFebgwyqvrj84-56-7490 11:19-0400Body .1 cmRtripp Lamar PA Work Phone: [facility] HospitalJlsiipkymi93-05-6285 11:19-0400Body mass index (BMI) [Ratio]34.28 kg/m2Corrine Lamar PA Work Phone: [facility] HospitalHydpivmavc90-01-5353 11:19-0400Body temperature 97.39 [degF]Corrine Lamar PA Work Phone: [facility] HospitalIczbexqipa86-78-3335 11:19-0400Body fkzcgy55.44 kgRymarito Lamar PA Work Phone: [facility] HospitalCejkecyrrx98-62-0594 11:19-0400Diastolic blood zhbqrabp33 mm[Hg]Corrine Lamar PA Work Phone: NOEx[facility] Medical CenterQdwvujmcgq16-90-0163 11:19-0400Heart rate87 /min Corrine Lamar PA Work Phone: NOEx[facility] Medical CenterPkdfiusxig23-60-5120 11:19-5885WpL0% (BldA) [Mass fraction]99 %Corrine Lamar PA Work Phone: NOExcels[facility] Medical CenterPphoacfovq71-59-4581 11:19-0400Systolic blood mm[Hg]Corrine Lamar PA Work Phone: NOExcels[facility] Springs Medical CenterTzjsdkynrw46-53-0034 11:35-0400Body mass index (BMI) [Ratio]34.61 kg/f8Avpjl Christian DO Work Phone: NOEx[facility] Medical CenterOwvzogrvyw49-43-5234 11:35-0400Body uwibyg90.35 kgCorey Christian DO Work Phone: [facility] HospitalTlbdccizrq42-91-0194 11:35-0400Diastolic blood qtahqits31 mm[Hg]Jaxson Christian DO Work Phone: [facility] HospitalFhduhaaqnr80-86-1498 11:35-0400Systolic blood fzveesjb855 mm[Hg]Jaxson Christian DO Work Phone: NOEx[facility] CenterTvtdjmlcse96-94-2317 14:37-0500Body ukgbcb243.1 cmRtripp Lamar PA Work Phone: [facility] HospitalXdfnbanton03-88-7050 14:37-0500Body mass index (BMI) [Ratio]34.95 kg/m2Corrine MOSELEY Work Phone: [facility] HospitalHhkbbmbixi76-06-6304 14:37-0500Body temperature 97.39 [degF]Corrine Lamar PA Work Phone: noExcelsior Springs Medical CenterRncajuneai42-75-0209 14:37-0500Body osliee39.25 kgCorrine MOSELEY Work Phone: [facility] HospitalYwekifgwfe29-63-3881 14:37-0500Diastolic blood qjxkervr04 mm[Hg]Corrine OMSELEY Work Phone: noExcelsior Springs Medical CenterFtrlqtcbht01-02-5865 14:37-0500Heart rate87 /min Corrine MOSELEY Work Phone: [facility] HospitalSgqdfnnmpt75-34-2455 14:37-0325DcT6% (BldA) [Mass fraction]98 %Corrine MOSELEY Work Phone: noExcelsior Springs Medical CenterMprnsfqkyr26-35-7419 14:37-0500Systolic blood qhiaomyd770 mm[Hg]Corrine Lamar PA Work Phone: [facility] HospitalBmyycmwlhz14-34-8517 18:37-0400Body quster211.1 cm[facility]09[facility]2024 18:37-0400Body mass index (BMI) [Ratio]38.2 kg/w7FkvyoyqreKettering Memorial Hospital09-11-2024 18:37-0400Body dbrhhvsiuck80.7 [degF][facility]09-11-2024 18:37-0400Body gkotzn524.32 kgK[facility] Hospital09-11-2024 18:37-0400Diastolic blood tujffguq21 mm[Hg][facility]09-11-2024 18:37-0400 Heart rate85 /[facility]09-11-2024 18:37-0400 Respiratory rate18 /[facility]09-11-2024 18:37-0400 SaO2% (BldA) [Mass fraction]98 %[facility]09-11-2024 18:37-0400Systolic blood moimjiae287 mm[Hg][facility] 01-12-2024 15:45-0400Body cpqypsuoeyj23.01 [degF]Summer Workman PA Work Phone: [facility] HospitalXddhjgltns84-99-2978 15:45-0400Diastolic blood eyegetrv40 mm[Hg]Summer Workman PA Work Phone: [facility] HospitalXtgwpqyrcq68-35-3966 15:45-0400Heart rate80 /min Summer Workman PA Work Phone: [facility] HospitalSgclxjifpo45-90-8842 15:45-9338KaL8% (BldA) [Mass fraction]99 %Summer Workman PA Work Phone: [facility] HospitalFhsttqcgbr52-76-7249 15:45-0400Systolic blood mxeuypsa868 mm[Hg][employer] Workman PA Work Phone: [facility] HospitalEbsnulhayi84-02-6249 13:45-0400BP Hwvurqmwy36 mm[Hg][facility]09-21-2019 13:45-0400BP Yrurfrek319 mm[Hg][facility]09-21-2019 13:45-0400Pulse (Heart Rate)74 /[facility]2019 13:45-0400Pulse Hknjunqi633 %[facility]09-21-2019 13:45-0400 Respiratory Rate19 /[facility]09-21-2019 11:03-0400BMI (Body Mass Index)25.7 kg/m2GTriHealth Good Samaritan Hospital 02-11-2019 11:03Body Rqdlylbyfws67.7 [degF][facility] Dan26-68-1571 11:03-0400Body dfadvw59.3 kgG[facility] Avx85-50-6816 11:7776Exbdfs807.1 cmG[facility] Encounters Encounter DateEncounter TypeCare ProviderFacilityStart: 04-02-2025 End: 01-30-0545Feqoyirsd Result EncounterCorey Christian DO Work Phone: noms External Department UnsolicitedStart: 04-02-2025 End: 16-04-0187Tsicacudr Result EncounterCorey Christian DO Work Phone: noms External Department UnsolicitedStart: 03-13-2025 End: 25-84-1497Tcjuws flowsheetCorey Christian DO Work Phone: [facility] [place] [facility]BGYNStart: 03-13-2025 End: 88-00-6741Aebnkz flowsheetCorey Christian DO Work Phone: [facility] [place] [facility]BGYNStart: 03-13-2025 End: 22-56-4986Nqvqmhiap Result EncounterCorey Christian DO Work Phone: noms External Department UnsolicitedStart: 03-13-2025 End: 00-13-5518Ewkdmp outpatient visit 15 minutesCorey Christian DO Work Phone: noms [place] OBGYNComment on above:LGSIL of cervix of undetermined significance; Menorrhagia with regular cycle; Dyspareunia in female; Pelvic pain; History of endometrial ablationStart: 03-13-2025 End: 87-37-1709tyzcemutyaWSGRQ FAZIONot AvailableStart: 03-12-2025 End: 20-19-0264kcqemypdlxRSantana Raymundo Prieto DO Work Phone: -[facility] [place] [facility]ospStart: 03-12-2025 End: 69-75-7786Xolflips ReferredCorey Christian-LAB Path Spec [place] HospStart: 03-12-2025 End: 66-61-4988Pnrzefx encounter procedureCoreelise Gonzales DO Work Phone: NOJA [place] OBGYNComment on above:Pre-op examination; Menorrhagia with regular cycle; Pelvic pain in female; Dysmenorrhea; Dyspareunia, female; HGSIL (high grade squamous intraepithelial lesion) on Pap smear of cervixStart: 03-12-2025 End: 23-53-6125Dugwyuybxbsgg examination doneCorey Christian DO Work Phone: noms HealthcareStart: 03-12-2025 End: 98-90-1249fzvwxpzugeBABAA FAZIONot AvailableStart: 03-02-2025 End: 12-03-6930wgabhgsreyZ. Raymundo Prieto Work Phone: [facility] Work Phone: Start: 03-02-2025 End: 46-55-7428Vqbivfn encounter procedureAdeel Eckert DO-Flu VaccineStart: 02-10-2025 End: 60-20-8835dwzxfgpqwbA. Raymundo Ramachandranshan CORREA Work Phone: [facility] Work Phone: Start: 02-10-2025 End: 76-88-0226Wkxrpyv encounter procedureTania Whitehead APRN-[facility] Work Phone: Start: 12-28-2024 End: 45-03-2964Zdlcuzbsh identifierKconsuelo Charlesandreas DMD Work Phone: Dental ClinicStart: 75-93-6315hshzckzvnjObbyr Kanani DMDECU [facility] DEPARTMENTStart: 09-26-2024 End: 51-51-1590Cbrwya Tommie Alvares DPM Work Phone: noms SWS PODIATRYStart: 09-26-2024 End: 71-62-2768Byspis flowsheetMadi Alvares DPM Work Phone: noms SWS PODIATRYStart: 09-26-2024 End: 92-92-6788Plorpy outpatient new 30 minutesMadi Alvares DPM Work Phone: noms SWS PODIATRYComment on above:Ingrown toenail (Primary Dx); Right foot painStart: 09-26-2024 End: 66-50-7765nqqvxpcwiiDYUKTR JOSEot AvailableStart: 09-11-2024 End: 04-15-5557Vnzfrf flowsLorena Warren CLOUD OPERATIONS ENGINEER Work Phone: [facility] SWS FM 230Start: 09-11-2024 End: 28-96-9093Snlhrx Lorelei Warren CLOUD OPERATIONS ENGINEER Work Phone: [facility] SWS FM 230Start: 09-11-2024 End: 91-35-8667Yfuzxc outpatient visit 15 minutesEllen Warren CLOUD OPERATIONS ENGINEER Work Phone: [facility] SWS FM 230Comment on above:Viral URI (Primary Dx); Cough, unspecified typeStart: 09-11-2024 End: 93-94-8009tvfbbpvuqmEHDLK L LUBYNot AvailableStart: 09-09-2024 End: 73-07-2975Nxclndebq Result EncounterGeneric External Data ProviderNOMS External Department UnsolicitedStart: 09-09-2024 End: 51-68-6048Wmnoeczad Result EncounterGeneric External Data ProviderNOMS External Department UnsolicitedStart: 09-05-2024 End: 82-24-9808Tfgsgrms ReferredG. Raymundo Prieto DO Work Phone: [facility]-LAB Path Spec [place] [facility]ospStart: 09-05-2024 End: 91-52-8915mliheljaguK. Robert Kaftan DO Work Phone: [facility] Work Phone: Start: 08-22-2024 End: 14-08-7929Vofoxvgunnar MOSELEY Work Phone: NOCK SWS FM 230Start: 08-22-2024 End: 46-68-9532Xdnybm flowsheetCorrine MOSELEY Work Phone: NONR SWS FM 230Start: 08-22-2024 End: 13-36-9258Xqcqwnm encounter procedureCorrine MOSELEY Work Phone: [facility] Work Phone: Start: 08-22-2024 End: 94-87-7369Tjshjfmf preventive med est patient 18-39 yrsCorrine MOSELEY Work Phone: NOTS SWS FM 230Comment on above:Annual wellness visit (Primary Dx)Start: 08-22-2024 End: 19-49-5858hhgddvrmlzCESS M MYERSNot AvailableStart: 08-18-2024 End: 78-11-5759Hqowha Jessica MOSELEY Work Phone: noms SWS FM 230Comment on above:Paronychia of toe, unspecified laterality (Primary Dx)Start: 08-15-2024 End: 60-36-9533Hhwicnwjr Result EncounterGeneric External Data ProviderNOMS External Department UnsolicitedStart: 08-15-2024 End: 58-77-6940Hiwyrjvck Result EncounterGeneric External Data ProviderNOMS External Department UnsolicitedStart: 08-15-2024 End: 32-56-4237Gxdknlr encounter procedureCorey Christian DO Work Phone: noms HealthcareStart: 08-15-2024 End: 15-65-1910Xeylclyw preventive med est patient 18-39 yrsCorey Christian DO Work Phone: noms BCP OBComment on above:Well woman exam with routine gynecological exam; Menorrhagia with regular cycle; History of endometrial ablationStart: 08-15-2024 End: 23-49-5274ukiofkbykoSNDCX FAZIONot AvailableStart: 08-14-2024 End: 58-44-9421Hfheqdvl ReferredG. Raymundo Prieto DO Work Phone: [facility] [address] Work Phone: start: 08-14-2024 End: 11-64-5156lejjgcdruwS. Raymundo Prieto DO Work Phone: [facility] Work Phone: Start: 05-22-2024 End: 73-27-5831gcqieqabkwEPKU M MYERSNot AvailableStart: 05-22-2024 End: 14-07-8022Mtxtwj outpatient visit 15 Donita MOSELEY Work Phone: noms SWS FM 230Comment on above:Paronychia of great toe of right foot (Primary Dx); Toenail fungusStart: 05-22-2024 End: 21-20-5115Yfynth Miguel MOSELEY Work Phone: noms SWS FM 230Start: 05-22-2024 End: 17-04-4645Sipevl Miguel MOSELEY Work Phone: noms SWS FM 230Start: 02-02-2024 End: 93-29-7027latipdveyxMdagzjkms [facility] Work Phone: Start: 02-02-2024 End: 85-53-9774Akyrnip encounter procedureFormerly [facility] Work Phone: Start: 01-12-2024 End: 25-10-0641Xjfbmf outpatient visit 15 Lazaro MOSELEY Work Phone: noMS SWS UCComment on above:Viral syndrome (Primary Dx)Start: 06-22-2022 End: 34-50-3540jiwfcttwiqLC JAXSON FAZIOFacility:Y2Wemzs: 10-09-2021 End: 49-81-7571zkalyvfcmpSA JAXSON FAZIOFacility:F7Xorlv: 59-36-4455Qrmyqbiob for other preprocedural examinationDR JAXSON FAZIOThe [facility] Hospitaltart: 30-71-2979ccqbpimewvKG JAXSON FAZIOFacility:D7Frvph: 10-01-2021 End: 41-63-2780nhcdmbqwaqMI JAXSON LOBATOOFacility:A8Bgeyo: 10-01-2021 End: 63-77-1713Aqibkhvbt for other preprocedural examinationDR JAXSON GONZALES Facility:P2Nnzvp: 08-30-2021 End: 76-03-3851hiwxluwrceFKIVY LUBYFacility:G9Mtxxp: 08-25-2021 End: 39-06-8701kdgfldpkgiSD JAXSON LOBATOOFacility:W4Kiqww: 08-24-2021 End: 95-41-2750ldtklbhdmrLT SOFIA SCHWARTZFacility:K0Ticxd: 02-11-2019 End: 54-44-4765Nzdebbsct department patient visitG. Conner-Emergency RoomStart: 04-06-2018 End: 94-70-5477Ufmivov encounter procedureGSantana Prieto-[facility]tras[facility] Cntr for Breast Car Procedures DateProcedureProcedure DetailPerforming ClinicianStart: 50-09-7349LEC CBC WITH AUTO DIFFCoreelise [employer] DO Work Phone: Start: 02-84-8447YZB,APTIMA HPV,AGE GDLNCorey Christian DO Work Phone: Start: 36-76-4667Txklwszqpdn observation [Identifier] in Cervix by Cyto stainCorey Christian DO Work Phone: Start: 89-90-2908Unrgh test visual color cmprsn methsCoreelise Christian DO Work Phone: Start: 01-68-8202Ffrrd cultureG. Raymundo Prieto DO Work Phone: Start: 12-28-2024 End: 47-33-1274mvzfhn risk assessment and documentation, with a finding of high riskKunal Kanani DMD Work Phone: Start: 12-28-2024 End: 08-60-6649Jvxjdbhkgtqor of current medicationsKunal Kanani DMD Work Phone: Start: 12-28-2024 End: 94-46-8643xshucefrsfe counseling for control of dental diseaseKunal Kanani DMD Work Phone: Start: 12-28-2024 End: 12-88-5033rned hygiene instructionsGenaro Cartagena DMD Work Phone: Start: 12-28-2024 End: 95-94-7959gaaoxawixtl scaling and root planing - one to three teeth per quadrantKconsuelo Cartagena DMDStart: 12-28-2024 End: 42-23-4795tnwofal application of fluoride varnishGenaro Cartagena DMDStart: 12-25-0059ZSVCEZ COVID-19/Glenn Warren CLOUD OPERATIONS ENGINEER Work Phone: Start: 78-77-6856IBLLX RESPIRATORY CULTUREGeneric External Data ProviderStart: 77-78-3227Qlwnp test visual color cmprsn methsCorey Christian DO Work Phone: Start: 12-97-2875ZXH,APTIMA HPV,AGE GDLNCorey Christian DO Work Phone: Start: 61-91-0734Vrmdiqlezqn observation [Identifier] in Cervix by Cyto stainEllen Warren CLOUD OPERATIONS ENGINEER Work Phone: Start: 31-49-0369Vlofj Strep (POC)Start: 72-70-9019QT abdomen pelvis wo Eugene. Kaftan Plan of Treatment DateCare ActivityDetailAuthorStart: 51-31-2783Rbtmjwrxw for malignant neoplasm of cervixNOMS HealthcareStart: 15-64-3851Zgxkcssum for malignant neoplasm of cervixNOMS HealthcareStart: 80-43-3419Jcatokv [facility] Work Phone: Start: 03-13-2025 End: 42-44-5525Hcdofjx encounter procedureNOMS BCP OBComment on above:Arrived Start: 03-12-2025 End: 04-19-6549Ayfejip encounter dvtywajws98/20/2025 9:30 AM EDT Procedure Visit [facility] [address] [place] [address] Jaxson Gonzales DO [address] [place] [address] [facility] BCP OBStart: 66-63-9183Uegbndx, [facility] Work Phone: Start: 23-67-6065WPKSM-19 Vaccine ( season) COVID-19 Vaccine ( season)NOMS HealthcareStart: 78-95-2463PjenEating Recovery Center [facility]al [facility] Work Phone: Start: 10-10-2024 End: 93-08-7315Vushozd encounter euakgwgqj15/20/2025 9:30 AM EDT Office Visit [facility] [address] [place] [address] Madi Alvares, DPM [address] [place] [address] [facility] SWS PODIATRYStart: 09-26-2024 End: 26-44-8312Glkhgzb encounter idkheewgu14/06/2025 9:30 AM EDT Office Visit [facility] [address] [place] [address] Madi Alvares, DPM [address] [place] [address] ArrivedNOMS SWS PODIATRYComment on above: ArrivedStart: 09-11-2024 End: 90-08-1430Hwyaqbg encounter drbfpnarn77/21/2025 10:20 AM EDT Office Visit [facility] [address] [place] [address] Ellen Warren, CLOUD OPERATIONS ENGINEER [address] [place] [address] ArrivedNOMS SWS FM 230Comment on above:ArrivedStart: 08-22-2024 End: 75-65-0070Mtmhnja encounter wdepsyvzf80/01/2025 11:20 AM EDT Office Visit [facility] [address] [place] [id number] Corrine Lamar PA [address] [place] [address] ArrivedNOVA SWS FM 230Comment on above:ArrivedStart: 08-03-2024 End: 93-37-7163Nrmysfl encounter yexvuruhp83/13/2025 8:30 AM EDT Office Visit [facility] [address] [address] Jaxson Gonzales, DO [address] [place] [address] [facility] BCP OBStart: 74-09-1668Lxxcnvdga for malignant neoplasm of cervixNOVA HealthcareStart: 65-50-1156Dckmmyqmt vaccinationInfluenza Vaccine (#1)[facility] HealthcareStart: 75-53-7970Rudiyxjgj for malignant neoplasm of cervixPap SmearNOVA HealthcareCytology Cervical or vaginal smear or scraping studyPap Smear Pathology and Cytology Routine Well woman exam with routine gynecological exam Ordered: 08/15/2024[facility] Healthcare Work Phone: comment on above:Ordered: 08/15/2024ytology Cervical or vaginal smear or scraping studyPap Smear Pathology and Cytology Routine LGSIL of cervix of undetermined significance Ordered: 03/13/2025[facility] Healthcare Work Phone: comment on above:Ordered: 03/13/2025Human papilloma virus DNA [Presence] in Unspecified specimen by Probe with amplificationHPV DNA probe, amplified Microbiology Routine Well woman exam with routine gynecological exam Ordered: 08/15/2024[facility] HealthcareComment on above:Ordered: 08/15/2024 Human papilloma virus DNA [Presence] in Unspecified specimen by Probe with amplificationHPV DNA probe, amplified Microbiology Routine LGSIL of cervix of undetermined significance Ordered:03/13/2025[facility] HealthcareComment on above: Ordered: 10/21/2025Patient EducationKidney Stones (ED) How to Strain Your Urine (ED)[facility] CtrPatient referralFirProMedica Bay [facility] Ctr Tissue examTissue exam Pathology and Cytology Routine Pre-op examination Menorrhagia with regular cycle Pelvicpain in female Dysmenorrhea Dyspareunia, female HGSIL (high grade squamous intraepithelial lesion) on Pap smear of cervix Ordered: 03/12/2025[facility] Healthcare Work Phone: comment on above:Ordered: 03/12/2025Urine culture [facility] Immunizations Immunization DateImmunizationNotesCare FvphpfjgBpfctzpf67-75-2413kouboiyzj, seasonal, injectable, preservative freeCorrine MOSELEY Work Phone: NOExcelsior Springs Medical CenterSxqrmzifqo20-56-9809noisqau toxoid, reduced diphtheria toxoid, and acellular pertussis vaccine, adsorbedSummer Dread PA Work Phone: [facility] HospitalNuasrzlphw02-68-6849nmbtvoxrwdsjc polysaccharide (groups A, C, Y and W-135) diphtheria toxoid conjugate vaccine (MCV4P)Corrine MOSELEY Work Phone: NOExcelsior Springs Medical CenterJxjkuptypk39-64-7863lajouqfpvp, tetanus toxoids and pertussis vaccineCorrine MOSELEY Work Phone: NOExcelsior Springs Medical CenterJtwppowsxt32-14-6019djwwkgh, mumps and rubella virus vaccineCorrine MOSELEY Work Phone: NOExcelsior Springs Medical CenterNfygkaizcm13-72-9951wvzkzxtrmm vaccine, inactivatedCorrine MOSELEY Work Phone: NOExcelsior Springs Medical CenterKicozweiof74-49-9580pnzxoipryhm influenzae type b vaccine, PRP-T conjugateCorrine MOSELEY Work Phone: NOExcelsior Springs Medical CenterEipvdvhzer98-50-6678akgqhrk, mumps and rubella virus vaccineCorrine MOSELEY Work Phone: NOExcelsior Springs Medical CenterZkpzajmebo78-26-3150spchbdzpzo, tetanus toxoids and pertussis vaccineCorrine MOSELEY Work Phone: NOExcelsior Springs Medical CenterXbgqpuktgk86-60-4614xpiczuxmxbn influenzae type b vaccine, PRP-T conjugateCorrine MOSELEY Work Phone: NOExcelsior Springs Medical CenterPhcaawjwsy13-79-5094xjppzdermu, tetanus toxoids and pertussis vaccineCorrine MOSELEY Work Phone: [facility] Indhueqviq33-80-1887tynqgfdptb vaccine, inactivatedCorrine Brianda MOSELEY Work Phone: [facility] Liqkiflaro16-42-4047ysmupwlden, tetanus toxoids and pertussis vaccineCorrine Brianda MOSELEY Work Phone: [facility] Qzunxwnbep52-57-4492bidxdinlfi vaccine, inactivatedCorrine Brianda MOSELEY Work Phone: NOEx[facility] Payers DatePayer CategoryPayerPolicy [id number]-[id number] [id number] 2023Medicaid [id number] [id number] 2..1.320006.3.57[id number] 2..1.948967.3.579.2.82369-16-2100Jarhriw1161161 2..1.872856.3.579.2.67632-73-5408Fxpcrse5027184 2..1.015380.3.579.2.62768-92-3927Qcqlcoz5124224 2..1.060166.3.579.2.46927-37-4998Xihduup4060247 2..1.469087.3.579.2.30150-18-7101Ejvxoqp9770139 2..1.522127.3.579.2.36577-28-3917Ajqbwoc8653143 2..1.865913.3.579.2.80578-18-7630Tqybpgf83182592 2.0.1.703798.3.579.2.83325-36-2231Ivemugf01242857 2.0.1.624113.3.579.2.690294-51-7453Jvlvnkn11823784 2.0.1.586951.3.579.2.073412-14-4224Nryiuyt6901532 2..1.246528.3.579.2.571859-59-0640Qfmagfv8331349 2..1.085291.3.579.2.909499-48-0483Rjohgtj1245670 2..1.460452.3.579.2.543560-18-5755Xcfpfnw6873857 2..1.995024.3.579.2.402812-60-4132Mgiwqlx5431110 2..1.485870.3.579.2.392310-93-0817Ydpxujo7435606 2..1.367258.3.579.[id number] r142o05f-g2r5-92e7-4901-c0333ha22x1l[id number] Pay [id number] [id number]-3jg6-4693-m4i8-92g0b701x014ScupdppZggjykoar No [id number] 5pi9n240-5m20-0j60-o6[id number] 2.0.1.484408.3.579.2.276Usjnnvp53070400 2..1.343668.3.579.2.531 Hwxxkto86776634 2.840.1.643485.3.579.2.688Nofakek16339199 2.0.1.519725.3.579.2.797Ijkyquk70036659 2.840.1.545915.3.579.2.531 Yrhfpgp79567061 2.0.1.737381.3.579.2.531 Social History DateTypeDetailFacilityStart: 89-19-3925Ammgudm smoking status NHISNever smoked tobacco (finding)[facility] CtrStart: 98-22-9226Rlb Assigned At BirthTrinity Health Systemtart: 12-23-2022 End: 99-51-6952Mwmtzpj smoking status NHISEx-smoker (finding)[facility] HospitalHistory of tobacco useCurrent smokerNOMS HealthcareHistory of tobacco useCigarette SmokerNOMS HealthcareStart: 50-26-7856Gjqjwgg use and exposureSmokeless tobacco non-userNOMS HealthcareStart: 01-12-2024 End: 22-30-3081Hhczoszew beverage intakeLifetime non-drinker (finding)[facility] HealthcareStart: 12-23-2022 End: 37-93-6193Eseuibx of Social functionNOMS HealthcareStart: 12-23-2022 End: 31-87-2387Fmilxfh use panelNOMS HealthcareStart: 54-79-2620Uopmlmh Comment Caffeine: > 4 cups/day sodaNOMS HealthcareStart: 33-09-7383Itj assigned at Not on fileNOMS HealthcareStart: 08-15-2024 End: 81-88-4213FcdVhfhut (finding)[facility] Southtart: 09-09-9564Tvedhde intakeAlcohol Use DetailsEating Recovery Center A Behavioral Hospital Sexual OrientationStraight or heterosexualEating Recovery Center [facility] Behavioral Hospital Work Phone: Start: 14-04-9256Heqkxe identityFePilgrim Psychiatric Centertart: 34-18-5269XkrFaemewQFBT HealthcareNEGATED: Highlighted rowStart: 82-94-7831Dbjyahd smoking status NHISUnknown if ever smokedEating Recovery Center A Behavioral HospitalNEGATED: Highlighted rowStart: 82-84-3318Sjgdhye of tobacco useCurrent non-smokerEating Recovery Center A Behavioral Hospital Goals DatePatient GoalDesired Activity/State Functional Status YkusDgitzujcjoFaltpqApkvfkhi06-15-8467Irkbooe Health Questionnaire 2 item (PHQ- 2) [Reported][facility] Clinical Notes 10-09-2021 to 03-13-2025 Note Date & MoeySoewRhquyhic59-94-3797 History of Present illness Narrative* Karla Payne, SHUTTLE CAR OPERATOR - 03/13/2025 10:40 AM EDT Reason for [...] (BMI 30-39.9) Pelvic pain 2007 Pre-op exam ([facility]) 2010 ([facility]) 2009 Umbilical hernia Varicella zoster [...] (BMI 30-39.9) Pelvic pain 2007 Pre-op exam ([facility]) 2010 ([facility]) 2009 Umbilical hernia age 3 [...] LAPAROSCOPY 2007 pelvic pain PELVIC LAPAROSCOPY 2018 [place] COLPOSCOPY,ENTIRE VAGINA,W/BIOPSY(S) 2009 abnormal pap smear TUBAL [...] nursing note reviewed. Exam conducted with a hotel service supervisor present. Vitals: Estimated body mass index is [...] of: Jaxson Gonzales DO documented in this encounterGolden Valley Memorial HospitalRgezflbuaq66-37-6273 History of Present illness Narrative* Keily Lew [...] on 04/11/[address] Gonzales at [facility]. MEDICATIONS No current outpatient medications ALLERGIES Allergies [...] (BMI 30-39.9) Pelvic pain 2007 Pre-op exam ([facility]) 2009 ([facility]) 2009 Umbilical hernia Varicella zoster [...] (BMI 30-39.9) Pelvic pain 2007 Pre-op exam ([facility]) 2010 ([facility]) 2009 Umbilical hernia age 3 [...] LAPAROSCOPY 2007 pelvic pain PELVIC LAPAROSCOPY 2018 [place] COLPOSCOPY,ENTIRE VAGINA,W/BIOPSY(S) 2009 abnormal pap smear TUBAL [...] nursing note reviewed. Exam conducted with a hotel service supervisor present. Vitals: Estimated body mass index is [...] reviewed, and patient is to proceed to [facility] OR. Follow Up: Patient is to follow up at 1 & 6 weeks post operative to assess proper healing and recovery from procedure. Documented by Carmelina Heard LPN on behalf of: Jaxson Gonzales DO documented in this encounterGolden Valley Memorial HospitalLgncxqazdy12-47-9083 Evaluation note* Diagnosis Onset Date Resolution Status Admit Date Acute UTI acuteSept2024 12:24pm [facility] Work Phone: 1(517) 927-912508-07-2025 Evaluation note* Type Assessment Date assessment Encounter for screening for dent al disorders [facility] Work Phone: 1(446) 299-805308-07-2025 History of Present illness Narrative* Encounter Date Complaint History Of Prese nt Illness [facility] Work Phone: 1(209) 573-527805-06-2025 History of Present illness Narrative* Madi Alvares [...] LAPAROSCOPY 2007 pelvic pain PELVIC LAPAROSCOPY 2018 [place] COLPOSCOPY,ENTIRE VAGINA,W/BIOPSY(S) 2009 abnormal pap smear TUBAL [...] Homegoing instructions were dispensed, including office and lieutenant colonel contact numbers. documented in this [facility]05-06-2025 Instructions* Patient Instructions* Hannah Tatum [...] please call the office. documented in this [facility]04-21-2025 History of Present illness Narrative* [...] LAPAROSCOPY 2007 pelvic pain PELVIC LAPAROSCOPY 2018 [place] COLPOSCOPY,ENTIRE VAGINA,W/BIOPSY(S) 2009 abnormal pap smear TUBAL [...] orders for this visit: Viral URI - enpshagjchqxytc-jawstojrmmkuiwr-GV 30-2-10 MG/5ML syrup; Take 5 mL by [...] or fail to improve. documented in this encounterGolden Valley Memorial [id number] History of Present illness Narrative* LORELEI Crockett - 08/22/2024 11:20 AM EDT Images from the original note were not included. Subjective Patient ID: Farzaneh Marvin is a 33 y.o. female who presents for Annual Exam (Pt states she is here for a yearly wellness. Pt states that she will starting at [employer] [facility] [place] and she will need the wellness for her health insurance. ). Wellness Examination Pt presents to the office for an annual wellness visit without any current complaints. She recentlyhad labs completed at [facility] and is not currently taking any [...] family history were discussed. documented in this [facility]03-28-2025 History of Present illness Narrative* LORELEI Crockett - 08/18/2024 1:05 PM EDT Referral sent. documented in this [facility]03-25-2025 History of Present illness Narrative* Karla Payne LPN - 08/15/2024 11:20 AM EDT Reason for Appointment: Patient ID: Farzaneh Marvin is a 33 y.o. female who presents for [facility] Women Visit Patient presents today for Annual [...] LAPAROSCOPY 2007 pelvic pain PELVIC LAPAROSCOPY 2018 [place] COLPOSCOPY,ENTIRE VAGINA,W/BIOPSY(S) 2009 abnormal pap smear TUBAL [...] nursing note reviewed. Exam conducted with a hotel service supervisor present. Vitals: Estimated body mass index is [...] of: Jaxson Gonzales DO documented in this encounterGolden Valley Memorial [id number] History of Present illness Narrative* LORELEI Crockett [...] concerns. Pt verbalized understanding. documented in this encounterGolden Valley Memorial [id number] History of Present illness Narrative* LORELEI Whaley [...] swab in house negative. documented in this encounterGolden Valley Memorial [id number] NoteOPERATIVE NOTE OPERATION DATE: 10/09/2021 PROCEDURE: Juhi endometrial ablation with hysteroscopy. PREOPERATIVE DIAGNOSIS: Menorrhagia. POSTOPERATIVE DIAGNOSIS: Menorrhagia. ANESTHESIA: General. SURGEON: Jaxson Gonzales M.D. MODEL HOME SALES GREETER: None. FINDINGS: Normal appearing endometrium. Both ostia [...] taken to recovery in stable condition. [facility] Signed and Approved by: DR JAXSON GONZALES . 10/13/2021 07:35:00[facility] note* Clinical Note Date No Information [facility] Work Phone: Discharge summary* Clinical Note Date No Information [facility] Work Phone: Evaluation note* Diagnosis Onset Date Resolution Status COVID acuteContact with and (suspected) exposure to covid-19noneactiveSore throat noneactive [facility] Work Phone: Evaluation note* Diagnosis Viral syndrome- Primary Unspecified viral infection, in conditions classified elsewhere and of unspecified site [facility]* Diagnosis Paronychia of great toe of right foot- Primary Toenail fungus documented in this [facility] noteNo assessment information availableMemorial [facility] Work Phone: Evaluation note* Diagnosis Paronychia of toe, unspecified laterality- Primary documented in this encounter [facility] HealthcareEvaluation [facility]* Diagnosis Well woman exam with routine gynecological exam Routine gynecological examination Menorrhagia with regular cycle History of endometrial ablation documented in this encounter [facility] Healthcare[facility]* Diagnosis Annual wellness visit- Primary documented in this encounter [facility] HealthcareEvaluation note* Diagnosis Viral URI- Primary Acute upper respiratory infections of unspecified site Cough, unspecified type documented in this encounter [facility] HealthcareEvaluation note* Diagnosis Ingrown toenail- Primary Ingrowing nail Right foot pain Pain in soft tissues of limb documented [facility]* Diagnosis Onset Date Resolution Status Admit Date Dysuria noneactiveSept2024 12:24pm [facility] Work Phone: Evaluation note* Diagnosis Pre-op examination Menorrhagia with regular cycle Pelvic pain in female Unspecified symptom associated with female genital organs Dysmenorrhea Dyspareunia, female HGSIL (high grade squamous intraepithelial lesion) on Pap smear of cervix documented in this encounter [facility] HealthcareEvaluation note* Diagnosis LGSIL of cervix of undetermined significance Menorrhagia with regular cycle Dyspareunia in female Pelvic pain History of endometrial ablation documented in this [facility]* Clinical Note Date No Information [facility] Work Phone: History of Past illness Narrative* Condition Effective Dates (start - stop) O utcome No Information [facility] Work Phone: Instructions* Date Instruction Additional Infor mation No Information [facility] Work Phone: Progress note* Clinical Note Date No Information [facility] Work Phone: Reason for referral (narrative)* Reason For Referral No Information [facility] Work Phone: Reason for referral (narrative)No reason for referral information availableSamaritan [facility] Work Phone: Review of systems Narrative - Reported* System Pos/Neg Findings No Information [facility] Work Phone: Advance Directives Advance Directive [...] and content) DATE CREATED AUTHOR 06/25/2022 [facility] DATE CREATED AUTHOR AUTHOR'S ORGANIZ ATION 12/30/2024 [facility] DATE CREATED AUTHOR AUTHOR'S ORGANIZ ATION 03/14/2025 [facility] DATE CREATED AUTHOR AUTHOR'S ORGANIZ ATION 03/17/2025 [facility] Care Teams (unrecognized sec tion and content) Team Status: Active Member Role Status Dates Gabino Prieto DO Primary Care Provider Active Team Status: Inactive Member Role Status Dates Gabino Prieto DO Primary Care Provider Active Start: February 02, 2024 End: February 01jarrod Shell [facility] , APRNAttending ProviderActiveStart: February 02, 2024 End: February 02, 2024Team MemberRelationshipSpecialtyStart DateEnd Date Warren Prieto DO [address] [place] [address] [facility]09/29/22Team MemberRelationshipSpecialtyStart DateEnd Date Warren Prieto DO [address] [place] [address] [facility] - [facility]09/29/22Team MemberRelationshipSpecialtyStart DateEnd Date Warren Prieto DO [address] [place] [address] [facility]09/29/22 Team Status: Inactive Member Role Status Dates Gabino Prieto DO Primary Care Provider Active Start: August 14, 2024 End: August 14, 2024Wes John Jr, DOAttending ProviderActiveStart: August 14, 2024 End: August 14, 2024Team MemberRelationshipSpecialtyStart DateEnd Date Warren Prieto DO [address] [place] [address] [facility] - [facility]09/29/22Team MemberRelationshipSpecialtyStart DateEnd Date Warren Prieto DO [address] [place] [address] PCP - GeneralFamily Medicine09/29/22Team MemberRelationshipSpecialtyStart DateEnd Date Warren Prieto, DO [address] [place] [address] PCP - GeneralFamily Medicine09/29/22Team MemberRelationshipSpecialtyStart DateEnd Date Warren Prieto, DO [address] [place] [address] PCP - Generalmily Medicine09/29/22Team MemberRelationshipSpecialtyStart DateEnd Date Warren Prieto, DO [address] [place] [address] PCP - Generalmily Medicine09/29/22Team MemberRelationshipSpecialtyStart DateEnd Date Warren Prieto, DO [address] [place] [address] PCP - Generalmily Medicine09/29/22Team MemberRelationshipSpecialtyStart DateEnd Date Warren Prieto, DO [address] [place] [address] PCP - Generalmily Medicine09/29/22 Team Status: Inactive Member Role Status Dates Jaxson Gonzales DO Attending Provider Active Start : September 05, 2024 End: September 05, 2024Team MemberRelationshipSpecialtyStart DateEnd Date Warren Prieto DO [address] [place] [address] PCP - GeneralFamily Medicine09/29/22Team MemberRelationshipSpecialtyStart DateEnd Date Warren Prieto DO [address] [place] [address] [facility]CP - [facility]09/29/22 Name Effective Dates (start - stop) Status [...] DO [address] [place] [address] PCP - [facility]09/29/22 Team Status: Inactive Member Role/Relationship Status [...] [address] [place] [address] PCP - GeneralFamily Medicine09/29/22Team MemberRelationshipSpecialtyStart DateEnd Date Warren Prieto DO [address] [place] [address] PCP - GeneralFamily Medicine09/29/22 Goals (unrecognized section [...] Pt states that she will starting at [facility] and she will need the wellness for [...] BE BASED ON THE PRIMARY CLINICAL RECORDS. [employer] provides no warranty or guarantee of the accuracy or completeness of information in this document.
--- OUTSIDE RECORDS SUMMARY | 2025-04-14 14:10 | XMS_ITS | Clinical Summary ---
Author Organization [facility] Address [address] [place] [address] Care Team Providers Care Checker Loader Name Role Phone Warren Prieto DO Primary Care Provider [phone] Allergies Active AllergyReactionsCriticalityNoted YnfoWoeguzpwKladeqmzwrgxHexmb14/18/2023 Levofloxacin In D5w08/09/2013 Medications No known medications Active Problems ProblemNoted DateDiagnosed DateHuman papilloma virus (HPV) /18/2023 Liver lesion, right lobe02/08/2023Low grade squamous intraepithelial lesion (LGSIL) on cervicovaginal cytologic smear02/08/20234013Zgkwppumszp78/18/2023Obesity 3Pain in imnbdw0102/08/20235297Gtrxbcqnj38/18/2023Thrombocytopenic disorder 3Distal radius hvujblyv48/10/2014 Encounters DateTypeDepartmentCare TvhmBbkpprzvwhy28/19/2025Clinisync Result Encounter [facility] Unsolicited Jaxson Gonzales, DO 04/03/2025Telephone [facility] [address] [place] [address] Adia Murphy MA 5Clinisync Result Encounter [facility] External Department Unsolicited Jaxson Gnozales, DO 03/28/2025Orders Only [facility] [address] [place] [address] Beatriz De Los Santos LPN 10/22/2025Abstract [facility] [address] [place] [phone] Adia Murphy MA 03/13/2025 10:40 AM EDTProcedure Visit [facility] [place] [phone] Jaxson Gonzales, DO LGSIL of cervix of undetermined significance; Menorrhagia with regular cycle; Dyspareunia in female; Pelvic pain; History of endometrial orqwkvnu82/21/2025linisync Result Encounter [facility] External Department Unsolicited Jaxson Gonzales DO 5Bamboo flowsheet [facility] [place] [phone] Jaxson Gonzales, 03/12/2025 9:30 AM EDTProcedure Visit [facility] [place] [address] Jaxson Gonzales, Pre-op examination; Menorrhagia with regular cycle; Pelvic pain in female; Dysmenorrhea; Dyspareunia, female; HGSIL (high grade squamous intraepithelial lesion) on Pap smear of cervixfrom Last 3 Months Immunizations ImmunizationAdministration DatesNext IdsVHT7206/25/1991,12/02/1990,04/22/1990, 01/31/1990Hib (PRP-T)03/31/1991,12/02/1990IPV106/25/1991,04/22/1990,01/31/1990 Influenza, seasonal, injectable, preservative free08/14/2024MMR106/25/1991, 03/31/1991Meningococcal QAD9F0010/05/2006Tdap11/19/2014 Family History Medical HistoryRelationNameCommentsNo Known ProblemsDaughter 1No [...] > 4 cups/day sodaPHQ-2AnswerDate RecordedPatient Health Questionnaire-2 Uvdbi397CommentsUnknownSex and Gender InformationValueDate RecordedSex Assigned at BirthNot on fileLegal SexFemale 08/05/2022 6:48 PM EDTGender IdentityNot on fileSexual OrientationNot on file Last Filed Vital Signs Vital SignReadingTime TakenCommentsBlood Xhiunvsb842/8010 10:32 AM EDT Aolkb4077 10:23 AM LSYRxftowpeyhc00.2 ??C (97.1 ??F)09/11/2024 10:23 AM EDTRespiratory Rate--Oxygen Gwujgfxqev09%09/11/2024 10:23 AM EDTInhaled Oxygen Concentration--Dktfrz78.3 kg (210 lb)03/13/2025 10:32 AM JAHYvzbmt461.1 cm (5' 5 )09/11/2024 10:23 AM EDTBody Mass Index34.95009/11/2024 10:23 AM EDT Plan of Treatment DateTypeDepartmentCare Team (Latest Contact Info)Lqfyyifhexp75/26/2025 1:50 PM ESTOffice Visit [facility] [address] [place] [address] [place] [address] Caro Parada PA [address] [place] [address] 10/16/2025 10:00 AM EDTProcedure Visit [facility] [address] [place] [address] [place] [address] Jaxson Gonzales DO [address] [place] [address] Health MaintenanceDue DateLast DoneCommentsHPV/Snnwpu985005/30/2019COVID- 19 Vaccine (2024- season)ervical Cancer Screening 03/13/2028Pap Smear, 08/15/2024Influenza VaccineCompleted 03/02/2025, 08/14/2024Pneumococcal Vaccine: Pediatrics (0 to 5 Years) and At- Risk Patients (6 to 64 Years)Aged OutNo longer eligible based on patient's age to complete this topic Procedures Procedure NamePriorityDate/TimeAssociated DiagnosisCommentsALL CBC WITH AUTO DUYOCobubfj10/19/2025 3:42 PM EST [facility] PREG QUANT UPAYzzhbub43/19/2025 6:03 AM EST ALL CBC WITH AUTO FSVFQyncfyi15/19/2025 6:03 AM EST ALL BASIC METABOLIC PZKBLRldqihk46/10/2025 10:25 AM EST HMHP LIVER HKJZWAhfmzpy86/10/2025 10:25 AM EST ALL TYPE AND OZJCHLZkayokr96/10/2025 10:25 AM EST [facility] KWDCRzpdgzs36/10/2025 10:25 AM EST SRMCOH PROTHROMBIN TIME INR W/O BLRTXnfsmmb52/10/2025 10:25 AM EST ALL CBC WITH AUTO POZYNvpmcfh24/10/2025 10:25 AM EST IGP,APTIMA HPV,AGE GVTPHveylor70/21/2025 10:29 AM EDT PAP TEST, ZVYSUTUSMfhodgu70/21/2025 12:00 AM EDTPOCT , URINERoutine 03/12/2025 9:44 AM EDT Pre-op examination Menorrhagia with regular cycle Pelvic pain in female Dysmenorrhea Dyspareunia, female HGSIL (high grade squamous intraepithelial lesion) on Pap smear of cervix THIN PREP (R) TIS W/RFL IF ASCUS HPV OOCZHxjkwpa12/07/2020 12:00 PM EST from Last 3 Months or Most Recently Relevant to Health Maintenance Results * ALL CBC WITH AUTO DIFF (04/11/2025 3:42 PM EST) Only the most recent of3 resultswithin the time period is included. ComponentValueRef RangeTest MethodAnalysis TimePerformed AtPathologist Signature TBH WBC9.04.0 - 11.0 10 3/uLTBHTBH RBC4.564.20 - 5.40 10 6/uLTBHTBH HGB13.912.0 - 16.0 g/dLTBHTBH HCT41.536.0 - 48.0 %TBHTBH MCV91.081.0 - 99.0 fLTBHTBH MCH30.5 26.7 - 34.0 pgTBHTBH MCHC33.529.9 - 35.2 g/dLTBHTBH RDW12.511.0 - 15.0 %TBHTBH SHX183110 - 450 10 3/uLTBHTBH MPV11.09.5 - 13.5 fLTBHSpecimen (Source)Anatomical Location / LateralityCollection Method / VolumeCollection TimeReceived Time 04/11/2025 3:42 PM EST04/11/2025 3:55 PM EST Narrative [facility] - 04/11/2025 4:11 PM EST Authorizing ProviderResult TypeResult StatusCorey Christian DOCLINISYNCFinal Result Performing OrganizationAddressCity/State/ZIP CodePhone Number CLINISYNC [facility] * [facility] PREG QUANT HCG (04/11/2025 6:03 AM EST)ComponentValueRef RangeTest Method Analysis TimePerformed AtPathologist SignatureHCG QUANTITATIVE<1mIU/mLTBH Comment: 5-50 ? 0.2-1 WEEK 50-500 ? 1-2 WEEKS 100-5,000 ?2-3 WEEKS 500-10,000 ? 3-4 WEEKS 1,000-50,000 ?? 4-5 WEEKS 10,000-100,000 5-6 WEEKS 15,000-200,000 6-8 WEEKS 10,000-100,000 2-3 MONTHS Specimen (Source)Anatomical Location / LateralityCollection Method / Volume Collection TimeReceived Time04/11/2025 6:03 AM EST04/11/2025 6:04 AM EST Narrative [facility]IN[facility]YNC - 04/11/2025 6:27 AM EST Authorizing ProviderResult TypeResult StatusCorey Christian DOCLINISYNCFinal Result Performing OrganizationAddressCity/State/ZIP CodePhone Number [facility] * SRMCOH PROTHROMBIN TIME INR W/O COUM [...] Christian DOCLINISYNCFinal Result Performing OrganizationAddressCity/State/ZIP CodePhone Number [facility] * (ABNORMAL) [facility] LIVER PANEL (04/02/2025 10:25 AM EST)ComponentValueRef Range Test MethodAnalysis TimePerformed AtPathologist SignatureBILIRUBIN TOTAL0.20.2 - 1.0 mg/dLTBHBILIRUBIN DIRECT<0.10.0 - 0.2 mg/dLTBHASPARTATE AMINO CMLWRPCAFBK63(L)15 - 37 U/LTBHALANINE CFGDXXCPXJSRRYDC1156 - 59 U/LTBHALKALINE MADQAHQLDTF8311 - 116 U/LTBHTOTAL PROTEIN6.86.4 - 8.2 g/dLTBHALBUMIN LEVEL3.6 3.4 - 5.0 g/dLTBHGLOBULIN3.2g/dLTBHALBUMIN GLOBULIN RATIO1.1TBHSpecimen (Source)Anatomical Location / LateralityCollection Method / VolumeCollection TimeReceived Time04/02/2025 10:25 AM EST04/02/2025 10:26 AM EST Narrative CLINISYNC - 04/02/2025 11:42 AM EST Authorizing ProviderResult TypeResult StatusCorey Christian DOCLINISYNCFinal Result Performing OrganizationAddressCity/State/ZIP CodePhone Number [facility] * [facility] APTT (04/02/2025 10:25 AM EST)ComponentValueRef RangeTest MethodAnalysis TimePerformed AtPathologist SignaturePARTIAL THROMBOPLASTIN TIME28.822.3 - 36.2 secTBHSpecimen (Source)Anatomical Location / LateralityCollection Method / VolumeCollection TimeReceived Time04/02/2025 10:25 AM EST04/02/2025 10:26 AM EST Narrative [facility]IN[facility]YNC - 04/02/2025 11:06 AM EST Authorizing ProviderResult TypeResult StatusCorey [facility] DOCLINISYNCFinal Result Performing OrganizationAddressCity/State/ZIP CodePhone Number [facility] * ALL TYPE AND SCREEN (04/02/2025 10:25 AM EST)ComponentValueRef RangeTest MethodAnalysis TimePerformed AtPathologist SignatureBLOOD TYPEA PositiveTBH ANTIBODY SCREENNEGATIVETBHSpecimen (Source)Anatomical Location / Laterality Collection Method / VolumeCollection TimeReceived Time04/02/2025 10:25 AM EST 04/02/2025 10:26 AM EST Narrative CLINISYNC - 04/02/2025 11:18 AM EST [facility] , ?? Authorizing ProviderResult TypeResult StatusCorey Christian DOCLINISYNCFinal Result Performing OrganizationAddDepartment of Veterans Affairs Medical Center-Philadelphiaty/State/ZIP CodePhone Number [facility] * ALL BASIC METABOLIC PANEL (04/02/2025 10:25 AM EST)ComponentValueRef RangeTest MethodAnalysis TimePerformed AtPathologist McmfgovhuDKSJRS454567 - 145 mmol/L TBHPOTASSIUM3.63.5 - 5.1 mmol/HJPVKUHIRJLA33044 - 107 mmol/LTBHCARBON DIOXIDE 27.821.0 - 32.0 mmol/LTBHANION GAP10.6NDMIWFXLRW5964 - 106 mg/dLTBHBLOOD UREA GZOGIRYS01.07.0 - 18.0 mg/dLTBHCREATININE0.780.55 - 1.02 mg/dLTBHTBH EGFR-AF ERITREAN>60>=60 mL/min/1.73m 2TBHTBH EGFR-NON AF ERITREAN>60>=60 mL/min/1.73m 2TBHBUN CREATININE RATIO15.1CRPFWNBKTC5.98.5 - 10.1 mg/dLTBHSpecimen (Source) Anatomical Location / [...] at: 01 =G ?[facility] ?? [address] [place] ??[phone] ?? Wendy Kumar MD, IGP, APTIMA HPV, RFX 16/18,45Note.TBHComment: ?? TESTS ? RESULT ??FLAG ??UNITS ?REF RANGE ??LAB DIAGNOSIS: ?02 ?? NEGATIVE FOR INTRAEPITHELIAL LESION OR MALIGNANCY. ?? REACTIVE CELLULAR CHANGES AND/OR REPAIR ARE PRESENT. Specimen adequacy: ?02 ?? Satisfactory for evaluation. ??Endocervical and/or squamous metaplastic ?? cells (endocervical component) are present. Performed by: ? 02 ?? Radha Lake, Landcare Officer (ASCP) Electronically si... ?02 ?? Pedro Padilla [...] pap test was interpreted ?? using the [employer](R) Genius(TM) Cervical Algorithm whole ?? slide imaging system. HPV Genotype Reflex ?? Note ?02 ?? Criteria met, see HPV Genotype results. ?FLAG LEGEND: ?L-Low Normal,H-High Normal,LL-Alert Low,HH-Alert High <-Panic Low,>-Panic High,A-Abnormal,AA-Critical Abnormal Performed at: 02 WB ?[facility] ?? [address] [place], [place] ??[phone] ?? Wendy Kumar MD, HPV APTIMAPositive(A)NegativeTBHComment: This nucleic acid amplification test detects fourteen high- risk HPV types (16,18,31,33,35,39,45,51,52,56,58,59,66,68) without differentiation. HPV GENOTYPE 16NegativeNegativeTBHHPV GENOTYPE 18,45Positive(A)NegativeTBH Comment: Performed at: ??=G - [facility] [address] ??[id number] Welder/Installer: Wendy Kumar MD, Phone: ??[phone] Performed at: ??WB - [facility] ??[id number] Welder/Installer: Wendy Kumar MD, Phone: ??[phone] Specimen (Source)Anatomical Location / LateralityCollection Method / [...] Location / LateralityCollection Method / VolumeCollection TimeReceived XeqaFkkka49/20/2025 9:44 AM EDT Narrative Authorizing ProviderResult TypeResult [...] DO [address] [place], [place] [id number] PCP - GeneralFamily Medicine09/29/22
--- OUTSIDE RECORDS SUMMARY | 2025-04-14 14:10 | XMS_ITS | Continuity of Care Document ---
Author Organization [facility] Address [address] [place] [address] Phone Care Team Providers Care Education General Manager Name Role Phone Tania Dove APRN Attending Provider Gabino Prieto DO Primary Care Provider [phone] Adeel Nogueira DO Attending Provider [phone] Jaxson Gonzales DO Attending Provider Care Teams [...] Member Role/Relationship Status Dates Adeel QUINN DO [facility] Attending Provider Active Start: [...] Legal Sex Female (finding) Sex Assigned At [facility] 1990 Problems Active Problems Problem Diagnosis/Recorded Date Onset Date Status Delia dorantes COVID February 02, 2024 5:57pm Unknown Active Renal stoneSept2023 5:41pmUnknownActiveAcute UTISept2024 1:07pmUnknownActiveInactive/Resolved Problems Problem Diagnosis/Recorded Date Onset Date Status C jose e Ureterolithiasis February 11, 2019 1:49pm Unknown Re [...] 2025 11:00pm must administer with a meal/foodUnknownHydrocodone-Acetaminophen ([place]) 5-325 mg VdrrkkBkctigkvuukz1VODERFOSIT 4-6 HOURS as needed for Zpnp106Zncxuwuwb2018 11:00pmSeptember 2023 5:33pmCalculus of ureter Calculus of ureterTamsulosin (Flomax) 0.4 mg capsuleDiscontinued0.3XSCRUeiej79 February 10, 2019 11:00pmSept2023 5:32pmOndansetron 4 mg Tablet,DkogzeqpoytdezKcizmdkhusdy1OFDNinxff 6 to 8 hours as needed for Whplia548 February 10, 2019 11:00pmSept2023 5:33pmNaproxen (Naprosyn) 500 mg RayecuIcntdfpfxkhj479QDHFY75S142Afwevncbc 20th, 2019 11:00pmSept2023 5:33pmadminister with food or milkNirmatrelvir-Ritonavir (Paxlovid) 300 mg (150 mg x 2)-100 mg tablets,dose bistIgkypyeiarms5JY.HEARXCC334YuncipegkFebruary 01, 2024 11:00pmSept2023 5:58pmtake TWO 150 mg tablets of nirmatrelvir with ONE 100 mg tablet of ritonavir twice daily for 5 days PONirmatrelvir- Ritonavir (Paxlovid) 300 mg (150 mg x 2)-100 mg tablets,dose brwaXjgkjtaqfwve6VA .SMDXINN796Lfeeysomy 10th, 2024 11:00pmSept2024 11:41amtake TWO 150 mg tablets of nirmatrelvir with ONE 100 mg tablet of ritonavir twice daily for 5 days POSulfamethoxazole-Trimethoprim 800-160 mg uevbkrNjhtdf3WRPTBNsmep 12 hours 1050Se2024 11:00pmUnknownPhenazopyridine (Pyridium) 200 mg tablet Vnqlbg559IRJPRrwdb times daily as needed for fzai567NkjwcxsomFebruary 09, 2025 11:00pm Unknown Procedures Procedure Date Performed Status Urine Culture February 10, 2025 completed Relevant Diagnostic Tests and/or Laboratory Data Laboratory Results Test Collection Date/Time Result Date/Time Result Interpretation Reference Range Result Comment Performing Site Urine Color February 10, 2025 11:50am February 10 11:53am yellow Urine AppearanceSept2024 11:50amSept2024 11:53amcloudy Urine Specific GravitySept2024 11:50amSept2024 11:53am >=1.030Urine pHSept2024 11:50amSept2024 11:53am6.0Urine Leukocyte EsteraseSept2024 11:50amSept2024 11:53amsmall Urine NitriteSept2024 11:50amS2024 11:53amNegative Urine ProteinSept2024 11:50amSept2024 11:92ur311Ihyrt Glucose (UA)February 10, 2025 11:50amSept2024 11:53amnegative Urine KetonesSept2024 11:50amSept2024 11:53amnegative Urine UrobilinogenSept2024 11:50amSept2024 11:53am0.2 Urine BilirubinSept2024 11:50amSept2024 11:53amnegative Urine Occult BloodSept2024 11:50amSept2024 11:53am trace-intact Microbiology Results Procedure Source Result Collection Date/Time Result Date/Time Result Comment Performing Site Urine Culture Urine Escherichia coli (MDRO) [facility]2024 12:35pm February 13, 2025 2:40pm [facility] [id number] [address] [place] [address] Vital Signs Vital Reading Result Reference Range Collection Date/Time Height 65 [in_i] February 10, 2025 11:00evRxyzip25.89 kgSe2024 11:39amBody Jpkuddglkpi22.6 [degF]97.6-99.0February 10, 2025 11:39amHeart Rate77 /min 60-100February 10, 2025 11:39amRespiratory rate18 /ydz54-98GbhygwwshFebruary 10, 2025 11:39amOxygen saturation by Pulse wunpstaj81 %95-100February 10, 2025 11:39amBP Lovssnpd143 mm[Hg]100-140February 10, 2025 11:39amBP Rtbbdomyd60 mm[Hg]60-100February 10, 2025 11:39amBMI (Body Mass Index)34.4 kg/n6OgazzmydzFebruary 10, 2025 11:39am Advance Directives Advance Directive Response Recorded Date/ Time Advance Directives No March 29, 2018 5:45pm Insurance Providers Guarantor Ventura Mahan Address [address] [facility] [address]Mpgvpwg Info.Home Phone: Coverage Status Update:2025 Payer Group Member ID Coverage Type Subscriber Relationship to Subscriber Effective Date Expiration Date Silvia ARRIOLA Id: [id number] Russell , M Id: [id number] [address] [facility] [address] Home Phone: Email: [email or web address] Encounters Encounter Location(s) Arrival/Admit Date Discharge/Departure Date Discharge/Departure Disposition Provider(s) Departed Physician/ Provider Office Visit -[facility] February 10, 2025 12:24pm February 10, 2025 1:00pm Discharged to home care or self care (routine discharge) Ventura Duarte APRN Departed Clinical -Lab [facility] February 10, 2025 12:35pm February 10, 2025 12:36pm Discharged to home care or self care (routine discharge) Ventura Duarte APRN Departed Clinical -Flu Vaccine March 02, 2025 9:00am March 02, 2025 9:00am Discharged to home care or self care (routine discharge) Babar Carbajal DO Departed Referred -LAB [facility] March 12, 2025 12:31pm March 12, 2025 12:32pm Discharged to home care or self care (routine discharge) Jaxson Gonzales Departed Referred -LAB [facility] April 11, 2025 9:37am April 11, 2025 9:38am Discharged to home care or self care (routine discharge) Jaxson Gonzales Recent Diagnosis Onset Date Admit Date Acute UTI Unknown February 10, 2025 12:24pm Assessments Diagnosis Onset Date Resolution Status Admit Date Acute UTI acuteSept2024 12:24pm Plan of Treatment [facility] UA with Small leukocytes, trace blood. [...]
--- OUTSIDE RECORDS SUMMARY | 2025-04-14 14:10 | XMS_ITS | Clinical Summary ---
Author Organization [facility] Address [address] [place] [address] Phone Care Team Providers Care Medical Lab Technician Name Role Phone Unavailable Primary Care Provider Unavailabl e Social History Tobacco UseTypesPacks/DayYears UsedDateSmoking Tobacco: Never Assessed CommentsUnknownSex and Gender InformationValueDate RecordedSex Assigned at Not on fileLegal NjiMwngrx64/26/2022 6:29 PM ESTGender IdentityNot on fileSexual OrientationNot on file Plan of Treatment Not on file
--- OUTSIDE RECORDS SUMMARY | 2025-04-14 14:10 | XMS_ITS | Encounter Summary ---
Author Organization [facility] Address [address] [place] [address] Care Team Providers Care Time Motion Analyst Name Role Phone Warren Prieto DO Primary Care Provider [phone] Encounter Details DateTypeDepartmentCare Team (Latest Contact Info)Wrbmntcdjmi30/19/2025linisync Result Encounter [facility] External Department Unsolicited Jaxson Gonzales DO [address] [place], [facility] Social History Tobacco UseTypesPacks/DayYears UsedDateSmoking Tobacco: FormerCigarettes Smokeless Tobacco: NeverAlcohol UseStandard Drinks/WeekCommentsNever0 (1 standard drink = 0.6 oz pure alcohol)Caffeine: > 4 cups/day sodaPHQ-2AnswerDate RecordedPatient Health Questionnaire-2 Rtzcn143CommentsUnknown Sex and Gender InformationValueDate RecordedSex Assigned at BirthNot on file Legal UasBfvnit50/15/2023 6:48 PM EDTGender IdentityNot on fileSexual OrientationNot on filedocumented as of this encounter Plan of Treatment DateTypeDepartmentCare Team (Latest Contact Info)Xxqrkqmmgdp44/26/2025 1:50 PM ESTOffice Visit MARTIN KWONG [address] [place] [phone] Caro Parada PA [address] [place] [address] 10/16/2025 10:00 AM EDTProcedure Visit [facility] [address] [place] [address] Jaxson Gonzales DO [address] [place] [address] documented as of this encounter Procedures Procedure NamePriorityDate/TimeAssociated DiagnosisCommentsALL CBC WITH AUTO ZCPHUuwrpes37/19/2025 3:42 PM EST TBH PREG QUANT DVEBffsgyz14/19/2025 6:03 AM EST ALL CBC WITH AUTO JGELSnmsxzk81/19/2025 6:03 AM EST documented in this encounter Results * ALL CBC WITH AUTO DIFF (04/11/2025 3:42 PM EST)ComponentValueRef RangeTest MethodAnalysis TimePerformed AtPathologist SignatureTBH WBC9.04.0 - 11.0 10 3/uLTBHTBH RBC4.564.20 - 5.40 10 6/uLTBHTBH HGB13.912.0 - 16.0 g/dLTBHTBH HCT 41.536.0 - 48.0 %TBHTBH MCV91.081.0 - 99.0 fLTBHTBH MCH30.526.7 - 34.0 pgTBH TBH MCHC33.529.9 - 35.2 g/dLTBHTBH RDW12.511.0 - 15.0 %TBHTBH NJB961727 - 450 10 3/uLTBHTBH MPV11.09.5 - 13.5 fLTBHSpecimen (Source)Anatomical Location / LateralityCollection Method / VolumeCollection TimeReceived Time04/11/2025 3:42 PM EST04/11/2025 3:55 PM EST Narrative [...] DOCLINISYNCFinal Result Performing OrganizationAddressCity/State/ZIP CodePhone Number CLINISYNC TB * ALL CBC WITH AUTO DIFF (04/11/2025 6:03 AM EST)ComponentValueRef RangeTest MethodAnalysis TimePerformed AtPathologist SignatureTBH WBC4.44.0 - 11.0 10 3/uLTBHTBH RBC4.364.20 - 5.40 10 6/uLTBHTBH HGB13.312.0 - 16.0 g/dLTBHTBH HCT 39.136.0 - 48.0 %TBHTBH MCV89.781.0 - 99.0 fLTBHTBH MCH30.526.7 - 34.0 pgTBH TBH MCHC34.029.9 - 35.2 g/dLTBHTBH RDW12.411.0 - 15.0 %TBHTBH MJW265166 - 450 10 3/uLTBHTBH MPV10.59.5 - 13.5 fLTBHNEUTROPHILS PERCENT AUTO59.743.0 - 75.0 % TBHLYMPHOCYTES PERCENT AUTO30.720.5 - 60.0 %TBHMONOCYTES PERCENT AUTO7.11.7 - 12.0 %TBHTBH EO %1.60.9 - 7.0 %TBHBASOPHILS PERCENT AUTO0.70.2 - 2.0 %TBH IMMATURE GRANULOCYTES PCT AUTO0.20.0 - 0.5 %TBHNEUTROPHILS ABSOLUTE AUTO2.61.4 - 6.5 10 3/uLTBHLYMPHOCYTES ABSOLUTE AUTO1.31.2 - 3.8 10 3/uLTBHMONOCYTES ABSOLUTE AUTO0.30.3 - 0.8 10 3/uLTBHTBH EO #0.10.0 - 0.7 10 3/uLTBHBASOPHILS ABSOLUTE AUTO0.00.0 - 0.1 10 3/uLTBHIMMATURE GRANULOCYTES ABS AUTO0.010.00 - 0.03 10 3/uLTBHSpecimen (Source)Anatomical Location / LateralityCollection Method / VolumeCollection TimeReceived Time04/11/2025 6:03 AM EST04/11/2025 6:04 AM EST Narrative CLINISYNC - 04/11/2025 6:10 AM EST Authorizing ProviderResult TypeResult StatusCorey Christian DOCLINISYNCFinal Result Performing OrganizationAddressCity/State/ZIP CodePhone Number CLINISYNC TB documented in this encounter Visit Diagnoses Not on filedocumented in this encounter Care Teams Team MemberRelationshipSpecialtyStart DateEnd Date Warren Prieto DO [address] [place] [address] PCP - GeneralFamily Medicine09/29/22documented as of this encounter
--- OUTSIDE RECORDS SUMMARY | 2025-04-14 14:10 | XMS_ITS | Encounter Summary ---
Author Organization [facility] Address [address] [place] [address] Care Team Providers Care Clinical Rehabilitation Aide Name Role Phone Warren Prieto DO Primary Care Provider [phone] Encounter Details DateTypeDepartmentCare Team (Latest Contact Info)Pyfeuzqkiws46/11/2025Telephone [facility] [address] [place] [address] [place] [address] Adia Murphy MA Social History Tobacco UseTypesPacks/DayYears UsedDateSmoking Tobacco: FormerCigarettes Smokeless Tobacco: NeverAlcohol UseStandard Drinks/WeekCommentsNever0 (1 standard drink = 0.6 oz pure alcohol)Caffeine: > 4 cups/day sodaPHQ-2AnswerDate RecordedPatient Health Questionnaire-2 Dirlw108CommentsUnknown Sex and Gender InformationValueDate RecordedSex Assigned at BirthNot on file Legal HamJaucfg32/15/2023 6:48 PM EDTGender IdentityNot on fileSexual OrientationNot on filedocumented as of this encounter Miscellaneous Notes * Telephone Encounter - Adia Murphy MA - 04/03/2025 1:42 PM EST Pt notified of results and recommendations for 6 month pap smear after hysterectomy. PVU and will call back to schedule at a later time. documented in this encounter Plan of Treatment DateTypeDepartmentCare Team (Latest Contact Info)Phiojmlsegu47/26/2025 1:50 PM ESTOffice Visit NOMMarko KWONG [address] [place] [address] [place] [address] Caro Parada PA [address] [place] [address] 10/16/2025 10:00 AM EDTProcedure Visit NOM[facility]o KWONG [address] [place] [phone] Jaxson Gonzales DO [address] [facility] [place] [address] documented as of this encounter Visit Diagnoses Not on filedocumented in this encounter Care Teams Team MemberRelationshipSpecialtyStart DateEnd Date Warren Prieto DO [address] [place] [address] PCP - GeneralFamily Medicine09/29/22documented as of this encounter
--- OUTSIDE RECORDS SUMMARY | 2025-04-14 14:10 | XMS_ITS | Encounter Summary ---
Author Organization [facility] Address [address] [facility] [place] [address] Care Team Providers Care Resource Recovery Specialist Name Role Phone Warren Prieto DO Primary Care Provider [phone] Encounter Details DateTypeDepartmentCare Team (Latest Contact Info)Osqkxmtdcan90/10/2025linisync Result Encounter [facility] External Department Unsolicited Jaxson Gonzales DO [address] [place], [facility] Social History Tobacco UseTypesPacks/DayYears UsedDateSmoking Tobacco: FormerCigarettes Smokeless Tobacco: NeverAlcohol UseStandard Drinks/WeekCommentsNever0 (1 standard drink = 0.6 oz pure alcohol)Caffeine: > 4 cups/day sodaPHQ-2AnswerDate RecordedPatient Health Questionnaire-2 Ycgjc995CommentsUnknown Sex and Gender InformationValueDate RecordedSex Assigned at BirthNot on file Legal RqgLgiznm84/15/2023 6:48 PM EDTGender IdentityNot on fileSexual OrientationNot on filedocumented as of this encounter Plan of Treatment DateTypeDepartmentCare Team (Latest Contact Info)Gomrpmntdbp24/26/2025 1:50 PM ESTOffice Visit MARTIN KWONG [address] [place] [phone] Caro aPrada PA [address] [facility] [address] [place] [address] 10/16/2025 10:00 AM EDTProcedure Visit [facility] [address] [place] [address] Jaxson Gonzales, [address] [facility] [address] [place] [address] documented as of this encounter Procedures Procedure NamePriorityDate/TimeAssociated DiagnosisCommentsSRMCOH PROTHROMBIN TIME INR W/O JFVRWkbpcoa62/10/2025 10:25 AM EST HMHP LIVER VEEFBOifjcva35/10/2025 10:25 AM EST CCF SHLUAwlvofr47/10/2025 10:25 AM EST ALL TYPE AND LJVIROIaakbjn87/10/2025 10:25 AM EST ALL CBC WITH AUTO JJALMrkqvbu15/10/2025 10:25 AM EST ALL BASIC METABOLIC ESHELZtowvok75/10/2025 10:25 AM EST documented in this encounter Results * ALL BASIC METABOLIC PANEL (04/02/2025 10:25 AM EST)ComponentValueRef RangeTest MethodAnalysis TimePerformed AtPathologist NvjdmboanNLWYPD984127 - 145 mmol/L TBHPOTASSIUM3.63.5 - 5.1 mmol/TDHTEKEVGMBZ28912 - 107 mmol/LTBHCARBON DIOXIDE 27.821.0 - 32.0 mmol/LTBHANION GAP10.9TVWENKHPVA5446 - 106 mg/dLTBHBLOOD UREA MNDYRBHA26.07.0 - 18.0 mg/dLTBHCREATININE0.780.55 - 1.02 mg/dLTBHTBH EGFR-AF ICELANDIC>60>=60 mL/min/1.73m 2TBHTBH EGFR-NON AF ICELANDIC>60>=60 mL/min/1.73m 2TBHBUN CREATININE RATIO15.2VWOISYYMAC1.98.5 - 10.1 mg/dLTBHSpecimen (Source) Anatomical Location / LateralityCollection Method / VolumeCollection Time Received Time04/02/2025 10:25 AM EST04/02/2025 10:26 AM EST Narrative [facility] - 04/02/2025 11:42 AM EST Authorizing ProviderResult TypeResult StatusCorey Christian DOCLINISYNCFinal Result Performing OrganizationAddressCity/State/ZIP CodePhone Number CLINISYNC TB * (ABNORMAL) [facility] LIVER PANEL (04/02/2025 10:25 AM EST)ComponentValueRef Range Test MethodAnalysis TimePerformed AtPathologist SignatureBILIRUBIN TOTAL0.20.2 - 1.0 mg/dLTBHBILIRUBIN DIRECT<0.10.0 - 0.2 mg/dLTBHASPARTATE AMINO SITQUSQYESR32(L)15 - 37 U/LTBHALANINE ENJUKEYGRQNLPRGN7188 - 59 U/LTBHALKALINE UZFFZJUEOSG2716 - 116 U/LTBHTOTAL PROTEIN6.86.4 - 8.2 g/dLTBHALBUMIN LEVEL3.6 3.4 - 5.0 g/dLTBHGLOBULIN3.2g/dLTBHALBUMIN GLOBULIN RATIO1.1TBHSpecimen (Source)Anatomical Location / LateralityCollection Method / VolumeCollection TimeReceived Time04/02/2025 10:25 AM EST04/02/2025 10:26 AM EST Narrative CLINISYNC - 04/02/2025 11:42 AM EST Authorizing ProviderResult TypeResult StatusCorey Christian DOCLINISYNCFinal Result Performing OrganizationAddressCity/State/ZIP CodePhone Number CLINKENTONNC TB * ALL TYPE AND SCREEN (04/02/2025 10:25 AM EST)ComponentValueRef RangeTest MethodAnalysis TimePerformed AtPathologist SignatureBLOOD TYPEA PositiveTBH ANTIBODY SCREENNEGATIVETBHSpecimen (Source)Anatomical Location / Laterality Collection Method / VolumeCollection TimeReceived Time04/02/2025 10:25 AM EST 04/02/2025 10:26 AM EST Narrative CLINISYNC - 04/02/2025 11:18 AM EST [facility] , ?? Authorizing ProviderResult TypeResult StatusCorey Christian DOCLINISYNCFinal Result Performing OrganizationAddressCity/State/ZIP CodePhone Number [facility] * [facility] APTT (04/02/2025 10:25 AM EST)ComponentValueRef RangeTest MethodAnalysis TimePerformed AtPathologist SignaturePARTIAL THROMBOPLASTIN TIME28.822.3 - 36.2 secTBHSpecimen (Source)Anatomical Location / LateralityCollection Method / VolumeCollection TimeReceived Time04/02/2025 10:25 AM EST04/02/2025 10:26 AM EST Narrative CLINISYNC - 04/02/2025 11:06 AM EST Authorizing ProviderResult TypeResult StatusCorey Christian DOCLINISYNCFinal Result Performing OrganizationAddressCity/State/ZIP CodePhone Number [facility] * SRMCOH PROTHROMBIN TIME INR W/O COUM (04/02/2025 10:25 AM EST)ComponentValue Ref RangeTest MethodAnalysis TimePerformed AtPathologist SignaturePROTHROMBIN TIME10.39.0 - 11.6 secTBHTBH INR0.97TBHComment: DESIRED INR: 2.0-3.0 CONDITIONS NOT LISTED BELOW 2.5-3.5 FOR PROSTHETIC HEART VALVE REPLACEMENT 2.5-3.5 RECURRENT THROMBOSIS Specimen (Source)Anatomical Location / LateralityCollection Method / Volume Collection TimeReceived Time04/02/2025 10:25 AM EST04/02/2025 10:26 AM EST Narrative CLINSACHI - 04/02/2025 11:06 AM EST Authorizing ProviderResult TypeResult StatusCorey Christian DOCLINISYNCFinal Result Performing OrganizationAddressCity/State/ZIP CodePhone Number [facility] * ALL CBC WITH AUTO DIFF (04/02/2025 10:25 AM EST)ComponentValueRef RangeTest MethodAnalysis TimePerformed AtPathologist SignatureTBH WBC5.74.0 - 11.0 10 3/uLTBHTBH RBC4.644.20 - 5.40 10 6/uLTBHTBH HGB13.612.0 - 16.0 g/dLTBHTBH HCT 41.436.0 - 48.0 %TBHTBH MCV89.281.0 - 99.0 fLTBHTBH MCH29.326.7 - 34.0 pgTBH TBH MCHC32.929.9 - 35.2 g/dLTBHTBH RDW12.511.0 - 15.0 %TBHTBH AAD602321 - 450 10 3/uLTBHTBH MPV11.09.5 - 13.5 [...] DO [address] [place] [address] PCP - GeneralFamily Medicine09/29/22documented as of this encounter
[2025-04-14 14:14] LABS: Alanine Aminotransferase 21 U/L (14-59); Albumin Globulin Ratio 1.0; Albumin Level 3.3 g/dL (3.4-5.0); Alkaline Phosphatase 74 U/L (46-116); Anion Gap 11.5; Aspartate Amino Transferase 13 U/L (15-37); Blood Urea Nitrogen 8.0 mg/dL (7.0-18.0); Calcium 8.8 mg/dL (8.5-10.1); Carbon Dioxide 26.8 mmol/L (21.0-32.0); Chloride 105 mmol/L (98-107); Estimated GFR (African America >60 (>=60 mL/min/1.73m^2); Estimated GFR (Non-African Ame >60 (>=60 mL/min/1.73m^2); Globulin 3.4 g/dL; Glucose 109 mg/dL (74-106); Potassium 3.3 mmol/L (3.5-5.1); Sodium 140 mmol/L (136-145); Total Protein 6.7 g/dL (6.4-8.2)
[2025-04-14 14:19] LABS: Magnesium 1.8 mg/dL (1.8-2.4)
--- NOTE | 2025-04-14 14:20 | CT_ITS ---
[address] [address] Patient Name: JUAQUIN ARMSTRONG MRN: [id number] date: 1990 Sex: F Assigned Patient Location: ER Current Patient Location: Accession/Order Number: [id number] Exam Date: 04/14/2025 14:57 Report Date: 04/14/2025 15:12 At the request of: ADIEL MOSELEY Procedure: CT angio chest CT ANGIOGRAM OF THE CHEST, PULMONARY EMBOLISM PROTOCOL: CLINICAL INFORMATION: History of hysterectomy on Wednesday. Shortness of breath. COMPARISON: None TECHNIQUE: Following intravenous injection of contrast CT scans of the chest were obtained using pulmonary embolism protocol. Coronal and sagittal reconstructed images, as well as volume rendered CT pulmonary angiographic images were also submitted.The CT exam was performed using one or more of the following dose reduction techniques: Automated exposure control, adjustment of the MA and/or Kv according to patient size, or use of the iterative reconstruction technique. FINDINGS: Pulmonary Vasculature: Contrast bolus is adequate for evaluation of pulmonary embolism. Pulmonary trunk appears nondilated. No filling defects are identified to suggest pulmonary embolism. Mediastinum : Thoracic aorta is normal in caliber. No pericardial effusion. No lymphadenopathy. The esophagus is grossly unremarkable. Lungs: No focal consolidation, pneumothorax or pleural effusion. Mild dependent atelectatic changes. Upper abdomen: No acute findings Soft tissue/bones: Soft tissues surrounding the chest wall demonstrate no acute findings. Osseous structures demonstrate degenerative change. CT/CT angio chest IMPRESSION: NO EVIDENCE OF ACUTE PULMONARY EMBOLISM OR PROCESS. Impression dictated by: Jeff Vegas Jr. DSantanaOSantana 04/14/2025 3:12 PM Dictation Location: [employer] Electronically authenticated by: [id number] Y Date: 04/14/2025 15:12
[2025-04-14 14:23] LABS: Cast Seen? NONE SEEN #/LPF (NONE SEEN); Crystals Seen? None Seen #/HPF (None Seen); Urine Culture Indicated YES-FRMC
[2025-04-14] MEDS: POTASSIUM CHLORIDE 10 MEQ ER TABLET 40 MEQ PO (14:34)
[2025-04-14] MEDS: CEPHALEXIN 500 MG CAPSULE PO (15:43)
== END 2025-04-14 15:50 | disposition home or self-care (01) ==
PROVIDERS: Physician Assistant; Emergency Provider Emergency Medicine; PCP Family Medicine
DX: N39.0 Urinary tract infection, site not specified (principal); Z90.710 Acquired absence of both cervix and uterus; Z87.891 Personal history of nicotine dependence; R79.89 Other specified abnormal findings of blood chemistry
CPT/HCPCS: 36415; 71275; 80053; 81001; 83735; 84484; 85025; 85378; 87086; 93005; 96374; 99285; J2405; Q9967